=== PATIENT | female | born 1965 | race African-American/Black ===

== ENCOUNTER 2017-11-23 15:27 | Inpatient (IN) | payer MEDICARE, MEDICAID ==
[~2017-11-23] VITALS: Ht 144.8 cm; Wt 95.4 kg
[2017-11-23 15:57] LABS: AMPHETAMINE/METHAMPHETAMINE NEG (NEG); BARBITURATES NEG (NEG); BENZODIAZEPINES NEG (NEG); CANNABINOIDS NEG (NEG); COCAINE NEG (NEG); METHADONE NEG (NEG); OPIATES NEG (NEG); PHENCYCLIDINE NEG (NEG)
[2017-11-23 16:14] LABS: BASO % 1 % (0-3); EOS # 0.5 x10^3/uL (0.0-0.7); EOS % 9 % (0-3); HEMOGLOBIN 10.9 g/dL (12.0-15.5); LYMPH # 2.4 x10^3/uL (1.0-4.8); LYMPH % 43 % (24-48); MEAN CORPUSCULAR HEMOGLOBIN 27 pg (25-35); MEAN CORPUSCULAR HGB CONC 32 g/dL (31-37); MEAN CORPUSCULAR VOLUME 84 fL (79-100); MONO # 0.5 x10^3/uL (0.0-1.1); MONO % 9 % (0-9); NEUT # 2.2 x10^3uL (1.8-7.7); NEUT % 39 % (31-73); PLATELET COUNT 266 x10^3/uL (140-400); RED BLOOD COUNT 4.04 x10^6/uL (3.50-5.40); RED CELL DISTRIBUTION WIDTH 15.5 % (11.5-14.5); WHITE BLOOD COUNT 5.6 x10^3/uL (4.0-11.0)
[2017-11-23 16:15] LABS: BILIRUBIN,URINE NEG (NEG); CLARITY,URINE HAZY; COLOR,URINE YELLOW; GLUCOSE,URINE >=1000 mg/dL (NEG); NITRITE,URINE NEG (NEG); UROBILINOGEN,URINE 0.2 mg/dL (0.2 mg/dL)
[2017-11-23 16:16] LABS: BACTERIA,URINE FEW /HPF (0-FEW); HYALINE CASTS, URINE FEW /HPF; SQUAMOUS EPITHELIAL CELL,UR MOD /LPF
[2017-11-23 16:26] LABS: ALBUMIN 3.3 g/dL (3.4-5.0); ALBUMIN/GLOBULIN RATIO 0.9 (1.0-1.7); CALCIUM 9.5 mg/dL (8.5-10.1); CREATININE 1.8 mg/dL (0.6-1.0); MAGNESIUM 2.1 mg/dL (1.8-2.4); POTASSIUM 3.6 mmol/L (3.5-5.1); TOTAL BILIRUBIN 0.2 mg/dL (0.2-1.0); TOTAL PROTEIN 6.8 g/dL (6.4-8.2)
[2017-11-23 16:27] LABS: ACETAMIN < 2.0 mcg/mL (10-30); SALIC 1.6 mg/dL (2.8-20.0)
[2017-11-23] MEDS ORDERED: CIPROFLOXACIN 400MG PREMIX 200 ML IV ONE (16:30)
--- NOTE | 2017-11-23 16:52 | PHYS DOC ---
Past History Past Medical History: Diabetes, High Cholesterol, Other Past Surgical History: Other Additional Smoking Information: Pt states she never smoked. Alcohol Use: Occasionally Additional Alcohol Information: Pt states she drinks only occasionally but when she does she drinks "alot when I can get my hands on it." Drug Use: None Social History Narrative: Pt states she never used drugs Adult General Chief Complaint Chief Complaint: PSYCH EVALUATION HPI HPI Patient is a 52-year-old female who lives in assisted living facility who presents with suicidal ideation without plan. Patient's a diabetic with a history of suicidal ideation the past who presents with acute agitation this morning that was not consolable by staff. Patient admits she had her voice she was telling herself to kill herself because she just heart living. She lives of chronic hand and foot pain bilaterally secondary to diabetic neuropathy. She is also complaining of chronic abdominal distention which she is taking MiraLAX, Colace, magnesium, Gas-X to help her with her abdominal distention and constipation. She is frustrated this is not working. She denies any chest pain, denies hearing any auditory or visual hallucinations at this time. She denies any trauma to her head abdomen chest or back. Patient's pain is chronic. She admits that she's had UTI symptoms for last several days but don't seem to be taking attention to. She describes mild urgency and frequency denies any vaginal bleeding or discharge. At one point time she felt that she may been . 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 Patient will be admitted to the [facility] psych facility for continued evaluation Review of Systems Review of Systems Constitutional: Denies fever or chills [] Eyes: Denies change in visual acuity, redness, or eye pain [] HENT: Denies nasal congestion or sore throat [] Respiratory: Denies cough or shortness of breath [] Cardiovascular: No additional information not addressed in HPI [] GI: She does complain of suprapubic pain with urgency frequency and dysuria denies any nausea, vomiting, diarrhea she is"" chronically constipated : Positive for dysuria urgency or frequency negative for hematuria Musculoskeletal: Denies back pain positive for chronic hand and foot pain with an injury to her left heel. Integument: Denies rash or skin lesions [] Neurologic: Denies headache, focal weakness she does complain of peripheral paresthesias and a burning sensation in her hands and feet. Endocrine: Denies polyuria or polydipsia [] All other systems were reviewed and found to be within normal limits, except as documented in this note. Current Medications Current Medications Current Medications Medications (Trade) Dose Ordered Sig/Chinedu Start Time Stop Time Status Last Admin Dose Admin Ciprofloxacin (Cipro) 500 mg 1X ONCE 11/23/17 17:00 11/23/17 17:01 Ciprofloxacin Lactate 200 ml @ 200 mls/hr 1X ONCE 11/23/17 16:30 11/23/17 16:31 DC Allergies Allergies Allergies Coded Allergies Type Severity Reaction Last Updated Verified Penicillins Allergy Unknown 11/23/17 Yes latex Allergy Unknown 11/23/17 Yes potassium chloride Allergy Unknown 11/23/17 Yes Physical Exam Physical Exam Vital signs on the chart within normal limits no fevers, no hypoxia Constitutional: Well developed, well nourished, patient is obese but quite lucid she is aware where she is at and why she is here.[] HENT: Normocephalic, atraumatic, bilateral external ears normal, oropharynx dry mucous membranes, no oral exudates, nose normal. [] Eyes: PERRLA, EOMI, conjunctiva normal, no discharge. [] Neck: Normal range of motion, no tenderness, supple, no stridor. [] Cardiovascular:Heart rate regular rhythm, no murmur [] Lungs & Thorax: Bilateral breath sounds clear to auscultation [] Abdomen: Bowel sounds normal, soft, no tenderness, no masses, no pulsatile masses. She does have a protuberant abdomen with there is no focal [place] Kahn sign, Phan's or McBurney's point tenderness to palpation. Skin: Warm, dry, no erythema, no rash. She does have a small tear-like lesion on the backside of the left heel measuring 1 cm to 2 cm in length and width. It does not look a pressure sore[] Back: No tenderness, no CVA tenderness. [] Extremities: No tenderness, no cyanosis, no clubbing, ROM intact, no edema. [] Neurologic: Alert and oriented X 3, normal motor function, normal sensory function, no focal deficits noted patient can feel light touch and appropriate estate planning director of her distal cavities.. [] Psychologic: Patient is somewhat preoccupied with thoughts of suicide, she is not disoriented but she does become confused easily. Current Patient Data Vital Signs Vital Signs Date Time Temp Pulse Resp B/P (MAP) Pulse Ox O2 Delivery O2 Flow Rate FiO2 11/23/17 15:30 98.5 86 20 94 Room Air Lab Results Laboratory Tests Test 11/23/17 15:35 11/23/17 15:50 Urine Collection Type Unknown Urine Color Yellow Urine Clarity Hazy Urine pH 5.5 Urine Specific [place] 1.015 Urine Protein 100 mg/dl (NEG-TRACE) Urine Glucose (UA) >=1000 mg/dL (NEG) Urine Ketones (Stick) Neg mg/dL (NEG) Urine Blood Neg (NEG) Urine Nitrite Neg (NEG) Urine Bilirubin Neg (NEG) Urine Urobilinogen Dipstick 0.2 mg/dL (0.2 mg/dL) Urine Leukocyte Esterase Small (NEG) Urine RBC 1-2 /HPF (0-2) Urine WBC 11-20 /HPF (0-4) Urine Squamous Epithelial Cells Mod /LPF Urine Bacteria Few /HPF (0-FEW) Urine Hyaline Casts Few /HPF Urine Mucus Slight /LPF Urine Opiates Screen Neg (NEG) Urine Methadone Screen Neg (NEG) Urine Barbiturates Neg (NEG) Urine Phencyclidine Screen Neg (NEG) Urine Amphetamine/Methamphetamine Neg (NEG) Urine Benzodiazepines Screen Neg (NEG) Urine Cocaine Screen Neg (NEG) Urine Cannabinoids Screen Neg (NEG) Urine Ethyl Alcohol Neg (NEG) White Blood Count 5.6 x10^3/uL (4.0-11.0) Red Blood Count 4.04 x10^6/uL (3.50-5.40) Hemoglobin 10.9 g/dL (12.0-15.5) L Hematocrit 34.0 % (36.0-47.0) L Mean Corpuscular Volume 84 fL (79-100) Mean Corpuscular Hemoglobin 27 pg (25-35) Mean Corpuscular Hemoglobin Concent 32 g/dL (31-37) Red Cell Distribution Width 15.5 % (11.5-14.5) H Platelet Count 266 x10^3/uL (140-400) Neutrophils (%) (Auto) 39 % (31-73) Lymphocytes (%) (Auto) 43 % (24-48) Monocytes (%) (Auto) 9 % (0-9) Eosinophils (%) (Auto) 9 % (0-3) H Basophils (%) (Auto) 1 % (0-3) Neutrophils # (Auto) 2.2 x10^3uL (1.8-7.7) Lymphocytes # (Auto) 2.4 x10^3/uL (1.0-4.8) Monocytes # (Auto) 0.5 x10^3/uL (0.0-1.1) Eosinophils # (Auto) 0.5 x10^3/uL (0.0-0.7) Basophils # (Auto) 0.0 x10^3/uL (0.0-0.2) Sodium Level 144 mmol/L (136-145) Potassium Level 3.6 mmol/L (3.5-5.1) Chloride Level 105 mmol/L (98-107) Carbon Dioxide Level 30 mmol/L (21-32) Anion Gap 9 (6-14) Blood Urea Nitrogen 25 mg/dL (7-20) H Creatinine 1.8 mg/dL (0.6-1.0) H Estimated GFR (Cockcroft-Gault) 36.0 BUN/Creatinine Ratio 14 (6-20) Glucose Level 102 mg/dL (70-99) H Calcium Level 9.5 mg/dL (8.5-10.1) Magnesium Level 2.1 mg/dL (1.8-2.4) Total Bilirubin 0.2 mg/dL (0.2-1.0) Aspartate Amino Transferase (AST) 19 U/L (15-37) Alanine Aminotransferase (ALT) 25 U/L (14-59) Alkaline Phosphatase 206 U/L (46-116) H Total Protein 6.8 g/dL (6.4-8.2) Albumin 3.3 g/dL (3.4-5.0) L Albumin/Globulin Ratio 0.9 (1.0-1.7) L Salicylates Level 1.6 mg/dL (2.8-20.0) L Salicylate Last Dose Date Unknown Salicylate Last Dose Time Unknown Acetaminophen Level < 2.0 mcg/mL (10-30) L Acetaminophen Last Dose Date Unknown Acetaminophen Last Dose Time Unknown Ethyl Alcohol Level < 10 mg/dL (0-10) EKG EKG [] Radiology/Procedures Radiology/Procedures [] Course & Med Decision Making Course & Med Decision Making Laboratory Tests Test 11/23/17 15:35 11/23/17 15:50 Urine Collection Type Unknown Urine Color Yellow Urine Clarity Hazy Urine pH 5.5 Urine Specific [place] 1.015 Urine Protein 100 mg/dl (NEG-TRACE) Urine Glucose (UA) >=1000 mg/dL (NEG) Urine Ketones (Stick) Neg mg/dL (NEG) Urine Blood Neg (NEG) Urine Nitrite Neg (NEG) Urine Bilirubin Neg (NEG) Urine Urobilinogen Dipstick 0.2 mg/dL (0.2 mg/dL) Urine Leukocyte Esterase Small (NEG) Urine RBC 1-2 /HPF (0-2) Urine WBC 11-20 /HPF (0-4) Urine Squamous Epithelial Cells Mod /LPF Urine Bacteria Few /HPF (0-FEW) Urine Hyaline Casts Few /HPF Urine Mucus Slight /LPF Urine Opiates Screen Neg (NEG) Urine Methadone Screen Neg (NEG) Urine Barbiturates Neg (NEG) Urine Phencyclidine Screen Neg (NEG) Urine Amphetamine/Methamphetamine Neg (NEG) Urine Benzodiazepines Screen Neg (NEG) Urine Cocaine Screen Neg (NEG) Urine Cannabinoids Screen Neg (NEG) Urine Ethyl Alcohol Neg (NEG) White Blood Count 5.6 x10^3/uL (4.0-11.0) Red Blood Count 4.04 x10^6/uL (3.50-5.40) Hemoglobin 10.9 g/dL (12.0-15.5) L Hematocrit 34.0 % (36.0-47.0) L Mean Corpuscular Volume 84 fL (79-100) Mean Corpuscular Hemoglobin 27 pg (25-35) Mean Corpuscular Hemoglobin Concent 32 g/dL (31-37) Red Cell Distribution Width 15.5 % (11.5-14.5) H Platelet Count 266 x10^3/uL (140-400) Neutrophils (%) (Auto) 39 % (31-73) Lymphocytes (%) (Auto) 43 % (24-48) Monocytes (%) (Auto) 9 % (0-9) Eosinophils (%) (Auto) 9 % (0-3) H Basophils (%) (Auto) 1 % (0-3) Neutrophils # (Auto) 2.2 x10^3uL (1.8-7.7) Lymphocytes # (Auto) 2.4 x10^3/uL (1.0-4.8) Monocytes # (Auto) 0.5 x10^3/uL (0.0-1.1) Eosinophils # (Auto) 0.5 x10^3/uL (0.0-0.7) Basophils # (Auto) 0.0 x10^3/uL (0.0-0.2) Sodium Level 144 mmol/L (136-145) Potassium Level 3.6 mmol/L (3.5-5.1) Chloride Level 105 mmol/L (98-107) Carbon Dioxide Level 30 mmol/L (21-32) Anion Gap 9 (6-14) Blood Urea Nitrogen 25 mg/dL (7-20) H Creatinine 1.8 mg/dL (0.6-1.0) H Estimated GFR (Cockcroft-Gault) 36.0 BUN/Creatinine Ratio 14 (6-20) Glucose Level 102 mg/dL (70-99) H Calcium Level 9.5 mg/dL (8.5-10.1) Magnesium Level 2.1 mg/dL (1.8-2.4) Total Bilirubin 0.2 mg/dL (0.2-1.0) Aspartate Amino Transferase (AST) 19 U/L (15-37) Alanine Aminotransferase (ALT) 25 U/L (14-59) Alkaline Phosphatase 206 U/L (46-116) H Total Protein 6.8 g/dL (6.4-8.2) Albumin 3.3 g/dL (3.4-5.0) L Albumin/Globulin Ratio 0.9 (1.0-1.7) L Salicylates Level 1.6 mg/dL (2.8-20.0) L Salicylate Last Dose Date Unknown Salicylate Last Dose Time Unknown Acetaminophen Level < 2.0 mcg/mL (10-30) L Acetaminophen Last Dose Date Unknown Acetaminophen Last Dose Time Unknown Ethyl Alcohol Level < 10 mg/dL (0-10) Pertinent Labs and Imaging studies reviewed. (See chart for details) []Patient EKG read at 3:54 PM dosage heart rate of 73, MD interval of 156 which is normal, QRS 100 which is normal, QTC is 433 which is normal, patient is a normal sinus rhythm there is no Q-wave in the anterior leads specifically lead V1 and V2 but there is no ST segment or T-wave changes consistent with acute ischemia at this time. Patient's urinalysis has noted glucose in it with 11-20 white blood cells as well as bacteria and leuk esterase. Given her symptoms although there is epithelial cells noted as a possible contaminant patient will be treated empirically with ciprofloxacin to ensure that her altered mental status and confusion is not from this UTI. She'll be offered admission to the hospital for continued evaluation of her suicidal ideations in nature that her medications are stabilized as she may be discharged to an appropriate healthcare facility after being medically screened and cleared by psychiatry. "I have assessed this patient clinically and believe that their condition requires an admission to the hospital. After consulting the admitting physician about this case, they have asked that I admit this patient to their service as an inpatient based on the clinical presentation and my impression." She is oriented been admitted to psychiatry services [facility] psych Impression: Acute adjustment disorder, acute UTI, Dragon Disclaimer Dragon Disclaimer This electronic medical record was generated, in whole or in part, using a voice recognition dictation system. Departure Departure: Impression: Primary Impression: Acute adjustment disorder Additional Impressions: Peripheral neuropathy UTI (urinary tract infection) Skin tear Disposition: ADMITTED INPATIENT Admitting Physician: Other Condition: GUARDED Referrals: TIFFANIE WALLIS (PCP) Problem Qualifiers OSIEL HUNTER MD Nov 23, 2017 16:52
[2017-11-23] MEDS ORDERED: CIPROFLOXACIN HCL 500 MG TABLET PO ONE (17:00)
--- NOTE | 2017-11-23 17:02 | EKG ---
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
[2017-11-23] MEDS ORDERED: ACETAMINOPHEN 325 MG TABLET PO PRN (17:45)
[2017-11-23] MEDS ORDERED: METHYL SALICYLATE/MENTHOL TOPICAL OINTMENT 29GM TUBE. TP PRN (17:45)
[2017-11-23] MEDS ORDERED: MAG HYDROX/AL HYDROX/SIMETH 30 ML ORAL.SUSP PO PRN (17:45)
[2017-11-23 18:11] VITALS: BP 123/72
--- NOTE | 2017-11-23 21:12 | PDOC ---
Exam Note: Tay Note: Please also refer to the separate dictated note~for this date of service dictated separately.~Patient seen individually. Discussed the patient with Nursing staff reviewed the chart.~Reviewed interim history and current functioning. Reviewed vital signs,~Labs/ Radiology~and current medications noted below. Continue current treatment with the changes noted in the dictated addendum note Assessment: Vital Signs: Vital Signs Date Time Temp Pulse Resp B/P (MAP) Pulse Ox O2 Delivery O2 Flow Rate FiO2 11/23/17 18:11 96.4 83 18 123/72 (89) 97 11/23/17 16:50 Room Air Labs: Laboratory Tests Test 11/23/17 15:35 11/23/17 15:50 Urine Collection Type Unknown Urine Color Yellow Urine Clarity Hazy Urine pH 5.5 Urine Specific [place] 1.015 Urine Protein 100 mg/dl (NEG-TRACE) Urine Glucose (UA) >=1000 mg/dL (NEG) Urine Ketones (Stick) Neg mg/dL (NEG) Urine Blood Neg (NEG) Urine Nitrite Neg (NEG) Urine Bilirubin Neg (NEG) Urine Urobilinogen Dipstick 0.2 mg/dL (0.2 mg/dL) Urine Leukocyte Esterase Small (NEG) Urine RBC 1-2 /HPF (0-2) Urine WBC 11-20 /HPF (0-4) Urine Squamous Epithelial Cells Mod /LPF Urine Bacteria Few /HPF (0-FEW) Urine Hyaline Casts Few /HPF Urine Mucus Slight /LPF Urine Opiates Screen Neg (NEG) Urine Methadone Screen Neg (NEG) Urine Barbiturates Neg (NEG) Urine Phencyclidine Screen Neg (NEG) Urine Amphetamine/Methamphetamine Neg (NEG) Urine Benzodiazepines Screen Neg (NEG) Urine Cocaine Screen Neg (NEG) Urine Cannabinoids Screen Neg (NEG) Urine Ethyl Alcohol Neg (NEG) White Blood Count 5.6 x10^3/uL (4.0-11.0) Red Blood Count 4.04 x10^6/uL (3.50-5.40) Hemoglobin 10.9 g/dL (12.0-15.5) L Hematocrit 34.0 % (36.0-47.0) L Mean Corpuscular Volume 84 fL (79-100) Mean Corpuscular Hemoglobin 27 pg (25-35) Mean Corpuscular Hemoglobin Concent 32 g/dL (31-37) Red Cell Distribution Width 15.5 % (11.5-14.5) H Platelet Count 266 x10^3/uL (140-400) Neutrophils (%) (Auto) 39 % (31-73) Lymphocytes (%) (Auto) 43 % (24-48) Monocytes (%) (Auto) 9 % (0-9) Eosinophils (%) (Auto) 9 % (0-3) H Basophils (%) (Auto) 1 % (0-3) Neutrophils # (Auto) 2.2 x10^3uL (1.8-7.7) Lymphocytes # (Auto) 2.4 x10^3/uL (1.0-4.8) Monocytes # (Auto) 0.5 x10^3/uL (0.0-1.1) Eosinophils # (Auto) 0.5 x10^3/uL (0.0-0.7) Basophils # (Auto) 0.0 x10^3/uL (0.0-0.2) Sodium Level 144 mmol/L (136-145) Potassium Level 3.6 mmol/L (3.5-5.1) Chloride Level 105 mmol/L (98-107) Carbon Dioxide Level 30 mmol/L (21-32) Anion Gap 9 (6-14) Blood Urea Nitrogen 25 mg/dL (7-20) H Creatinine 1.8 mg/dL (0.6-1.0) H Estimated GFR (Cockcroft-Gault) 36.0 BUN/Creatinine Ratio 14 (6-20) Glucose Level 102 mg/dL (70-99) H Calcium Level 9.5 mg/dL (8.5-10.1) Magnesium Level 2.1 mg/dL (1.8-2.4) Total Bilirubin 0.2 mg/dL (0.2-1.0) Aspartate Amino Transferase (AST) 19 U/L (15-37) Alanine Aminotransferase (ALT) 25 U/L (14-59) Alkaline Phosphatase 206 U/L (46-116) H Total Protein 6.8 g/dL (6.4-8.2) Albumin 3.3 g/dL (3.4-5.0) L Albumin/Globulin Ratio 0.9 (1.0-1.7) L Salicylates Level 1.6 mg/dL (2.8-20.0) L Salicylate Last Dose Date Unknown Salicylate Last Dose Time Unknown Acetaminophen Level < 2.0 mcg/mL (10-30) L Acetaminophen Last Dose Date Unknown Acetaminophen Last Dose Time Unknown Ethyl Alcohol Level < 10 mg/dL (0-10) Current Medications: Meds: Current Medications Ciprofloxacin Lactate 200 ml @ 200 mls/hr 1X ONCE IV ; Start 11/23/17 at 16:30 ; Stop 11/23/17 at 16:31; Status DC Ciprofloxacin (Cipro) 500 mg 1X ONCE PO Last administered on 11/23/17at 16:45; Start 11/23/17 at 17:00; Stop 11/23/17 at 17:01; Status DC Acetaminophen (Tylenol) 650 mg PRN Q6HRS PRN PO PAIN / TEMP; Start 11/23/17 at 17:45 Multi-Ingredient Ointment (Analgesic [place]) 1 caridad PRN QID PRN TP MUSCLE PAIN; Start 11/23/17 at 17:45 Al Hydroxide/Mg Hydroxide (Mylanta Plus Xs) 15 ml PRN AFTMEALHC PRN PO DYSPEPSIA; Start 11/23/17 at 17:45 Magnesium Hydroxide (Milk Of Magnesia) 2,400 mg PRN QHS PRN PO CONSTIPATION; Start 11/23/17 at 17:45 I have reviewed the current psychotropics carefully including drug interactions. Risk benefit ratio favors no change other than as noted in my dictated progress note. Diagnosis: Problems: (1) Peripheral neuropathy (2) Skin tear (3) Acute adjustment disorder (4) Anxiety disorder (5) Bipolar affective, mixed, sev w/ psych (6) Schizoaffective disorder, chronic condition with acute exacerbation (7) Schizophrenia, disorganized, subchronic with acute exacerbation JASS HUNG MD Nov 23, 2017 21:12
[2017-11-23] MEDS ORDERED: ATOR10TA PO (22:04)
[2017-11-23] MEDS ORDERED: [UNRECOGNIZED DRUG - CODE] TP (22:04)
[2017-11-23] MEDS ORDERED: CLON0.1T PO (22:04)
[2017-11-23] MEDS ORDERED: ACET500T55 PO (22:04)
[2017-11-23] MEDS ORDERED: SIME125C65 PO (22:04)
[2017-11-23] MEDS ORDERED: HALO5VIA2 IM (22:04)
[2017-11-23] MEDS ORDERED: INSU100I17 SQ ×3 (22:04)
[2017-11-23] MEDS ORDERED: ASPI-612 PO (22:04)
[2017-11-23] MEDS ORDERED: TRAM50TA PO (22:04)
[2017-11-23] MEDS ORDERED: MAG355OR33 PO (22:04)
[2017-11-23] MEDS ORDERED: MULT-245 PO (22:04)
[2017-11-23] MEDS ORDERED: ARIP15TA36 PO (22:04)
[2017-11-23] MEDS ORDERED: FLUT9.9S NS (22:04)
[2017-11-23] MEDS ORDERED: AMLO10TA2 PO (22:04)
[2017-11-23] MEDS ORDERED: ERYT250T14 PO (22:04)
[2017-11-23] MEDS ORDERED: CLON0.5T3 PO (22:04)
[2017-11-23] MEDS ORDERED: INSU100I27 SQ ×2 (22:04)
[2017-11-23] MEDS ORDERED: MAGN2400 PO (22:04)
[2017-11-23] MEDS ORDERED: MAGN400T3 PO (22:04)
[2017-11-23] MEDS ORDERED: HALO10TA PO (22:04)
[2017-11-23] MEDS ORDERED: DOCU100C28 PO ×2 (22:04)
[2017-11-23] MEDS ORDERED: PIOG30TA41 PO (22:04)
[2017-11-23] MEDS ORDERED: FURO-68 PO (22:04)
[2017-11-23] MEDS ORDERED: LISI-334 PO (22:04)
[2017-11-23] MEDS ORDERED: GEMF600T3 PO (22:04)
[2017-11-23] MEDS ORDERED: SENN-87 PO (22:04)
[2017-11-23] MEDS ORDERED: CETI10TA16 PO (22:04)
[2017-11-23] MEDS ORDERED: POTA10TA10 PO (22:04)
[2017-11-23] MEDS ORDERED: GABA-586 PO (22:04)
[2017-11-23] MEDS ORDERED: FAMO-63 PO (22:04)
[2017-11-23] MEDS ORDERED: GLUC1VIA3 SQ (22:04)
[2017-11-23] MEDS ORDERED: PETROLAT WHT TP PRN (22:15)
[2017-11-23] MEDS ORDERED: GLY TP PRN (22:15)
[2017-11-23] MEDS ORDERED: MAG HYDROX PO PRN (22:15)
[2017-11-23] MEDS ORDERED: SIMETH PO PRN (22:15)
[2017-11-23] MEDS ORDERED: NON FORMULARY ITEM (Magnesium Hydroxide (Milk Of Magnesia) 2,400 MG) PO PRN (22:15)
[2017-11-23] MEDS ORDERED: AL HYDROX PO PRN (22:15)
[2017-11-23] MEDS ORDERED: DOCUSATE SODIUM 100 MG CAPSULE PO PRN (22:15)
[2017-11-23] MEDS ORDERED: HALOPERIDOL LACT 5 MG/ML VIAL. IM PRN (22:15)
[2017-11-23] MEDS ORDERED: GLUCAGON,HUMAN RECOMBINANT 1 MG KIT. SQ PRN (22:15)
[2017-11-23] MEDS ORDERED: WATER TP PRN (22:15)
[2017-11-23] MEDS ORDERED: DIMETH TP PRN (22:15)
[2017-11-23] MEDS: INSULIN GLARGINE 300 UNITS/3 ML INSULN.PEN. SQ SCH (23:13)
[2017-11-24] MEDS: ACETAMINOPHEN 500 MG TABLET PO PRN ×2 (00:38→11:38)
[2017-11-24] MEDS: traMADol 50 MG TABLET PO PRN (04:05)
[2017-11-24 07:12] VITALS: BP 125/75
[2017-11-24] MEDS: ASPIRIN ENTERIC COATED 81 MG TABLET.DR. PO SCH (08:50)
[2017-11-24] MEDS: clonazePAM 0.5 MG TABLET PO SCH ×2 (08:50→19:24)
[2017-11-24] MEDS: PIOGLITAZONE 15 MG TABLET. PO SCH (08:51)
[2017-11-24] MEDS: HALOPERIDOL 5 MG TABLET PO SCH ×2 (08:51→21:19)
[2017-11-24] MEDS: FUROSEMIDE 40 MG TABLET PO SCH (08:51)
[2017-11-24] MEDS: MULTIVITAMIN with MINERAL TABLET. PO SCH (08:51)
[2017-11-24] MEDS: amLODIPine BESYLATE 10 MG TABLET PO SCH (08:51)
[2017-11-24] MEDS: GABAPENTIN 300 MG CAPSULE. PO SCH ×2 (08:51→19:22)
[2017-11-24] MEDS: SENNOSIDES 8.6 MG TABLET PO SCH ×2 (08:52→19:22)
[2017-11-24] MEDS: POTASSIUM CHLORIDE 10 MEQ TABLET.ER. PO SCH (08:52)
[2017-11-24] MEDS: FAMOTIDINE 20 MG TABLET PO SCH ×2 (08:52→19:22)
[2017-11-24] MEDS: LISINOPRIL 20 MG TABLET PO SCH (08:52)
[2017-11-24] MEDS: CETIRIZINE HCL 10 MG TABLET PO SCH (08:52)
[2017-11-24] MEDS: SIMETHICONE 80 MG TAB.CHEW PO SCH ×3 (08:53→19:21)
[2017-11-24] MEDS: ERYTHROMYCIN BASE 250 MG TABLET PO SCH ×3 (08:54→16:50)
[2017-11-24] MEDS: FLUTICASONE 50MCG/NASAL SPRAY 16GM BOTTLE. NS PRN (08:54)
[2017-11-24] MEDS: ARIPiprazole 15 MG TABLET PO SCH ×2 (08:56→19:20)
[2017-11-24] MEDS: MAGNESIUM OXIDE 400 MG TABLET PO SCH (08:56)
[2017-11-24] MEDS: GEMFIBROZIL 600 MG TABLET. PO SCH ×2 (08:56→16:48)
[2017-11-24] MEDS: DOCUSATE SODIUM 100 MG CAPSULE PO SCH (08:56)
[2017-11-24] MEDS: INSULIN GLARGINE 300 UNITS/3 ML INSULN.PEN. SQ SCH ×2 (09:04→19:26)
[2017-11-24] MEDS: INSULIN LISPRO 300 UNITS/3 ML INSULN.PEN. SQ SCH ×3 (09:07→16:50)
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
[2017-11-24 13:55] LABS: THYROID STIM HORMONE (TSH) 1.74 uIU/mL (0.358-3.740)
[2017-11-24 15:46] VITALS: BP 123/66
--- NOTE | 2017-11-24 20:59 | PDOC ---
Exam Note: Tay Note: Please also refer to the separate dictated note~for this date of service dictated separately.~Patient seen individually. Discussed the patient with Nursing staff reviewed the chart.~Reviewed interim history and current functioning. Reviewed vital signs,~Labs/ Radiology~and current medications noted below. Continue current treatment with the changes noted in the dictated addendum note Assessment: Vital Signs: Vital Signs Date Time Temp Pulse Resp B/P (MAP) Pulse Ox O2 Delivery O2 Flow Rate FiO2 11/24/17 15:46 97.6 79 16 123/66 (85) 97 11/24/17 05:05 Room Air I&O Intake and Output 11/24/17 07:00 Intake Total 360 ml Balance 360 ml Intake Oral 360 ml # Voids 1 Labs: Laboratory Tests Test 11/23/17 22:41 11/24/17 09:02 11/24/17 11:24 11/24/17 16:22 Glucose (Fingerstick) 220 mg/dL (70-99) H 226 mg/dL (70-99) H 216 mg/dL (70-99) H 215 mg/dL (70-99) H Test 11/24/17 19:12 Glucose (Fingerstick) 262 mg/dL (70-99) H Current Medications: Meds: Current Medications Ciprofloxacin Lactate 200 ml @ 200 mls/hr 1X ONCE IV ; Start 11/23/17 at 16:30 ; Stop 11/23/17 at 16:31; Status DC Ciprofloxacin (Cipro) 500 mg 1X ONCE PO Last administered on 11/23/17at 16:45; Start 11/23/17 at 17:00; Stop 11/23/17 at 17:01; Status DC Acetaminophen (Tylenol) 650 mg PRN Q6HRS PRN PO PAIN / TEMP; Start 11/23/17 at 17:45; Status Cancel Multi-Ingredient Ointment (Analgesic [place]) 1 yong PRN QID PRN TP MUSCLE PAIN; Start 11/23/17 at 17:45 Al Hydroxide/Mg Hydroxide (Mylanta Plus Xs) 15 ml PRN AFTMEALHC PRN PO DYSPEPSIA; Start 11/23/17 at 17:45 Magnesium Hydroxide (Milk Of Magnesia) 2,400 mg PRN QHS PRN PO CONSTIPATION; Start 11/23/17 at 17:45 Aripiprazole (Abilify) 15 mg BID PO Last administered on 11/24/17 19:20; Start 11/24/17 at 09:00 Clonazepam (KlonoPIN) 0.5 mg BID PO Last administered on 11/24/17 19:24; Start 11/24/17 at 09:00 Haloperidol Lactate (Haldol) 5 mg PRN Q4HRS PRN IM AGITATION; Start 11/23/17 at 22:15 Haloperidol (Haldol) 20 mg BID PO Last administered on 11/24/17at 08:51; Start 11/24/17 at 09:00 Acetaminophen (Tylenol) 500 mg PRN Q6HRS PRN PO PAIN Last administered on at 11:38; Start 11/23/17 at 22:15 Amlodipine Besylate (Norvasc) 10 mg DAILY PO Last administered on 11/24/17 08: 51; Start 11/24/17 at 09:00 Aspirin (Aspirin Enteric Coated) 81 mg DAILY PO Last administered on 11/24/17at 08:50; Start 11/24/17 at 09:00 Cetirizine HCl (ZyrTEC) 10 mg DAILY PO Last administered on 11/24/17at 08:52; Start 11/24/17 at 09:00 Clonidine HCl (Catapres) 0.1 mg HS PO ; Start 11/24/17 at 21:00 Docusate Sodium (Colace) 100 mg DAILY PO Last administered on 11/24/17at 08:56; Start 11/24/17 at 09:00 Docusate Sodium (Colace) 100 mg PRN DAILY PRN PO CONSTIPATION; Start 11/23/17 at 22:15 Erythromycin (E-Mycin) 250 mg TIDPC PO Last administered on 11/24/17at 16:50; Start 11/24/17 at 08:30 Famotidine (Pepcid) 20 mg BID PO Last administered on 11/24/17at 19:22; Start at 09:00 Furosemide (Lasix) 40 mg DAILY PO Last administered on 11/24/17at 08:51; Start 11/24/17 at 09:00 Gabapentin (Neurontin) 300 mg BID PO Last administered on 11/24/17at 19:22; Start 11/24/17 at 09:00 Gemfibrozil (Lopid) 600 mg BIDWMEALS PO Last administered on 11/24/17at 16:48; Start 11/24/17 at 08:00 Glucagon (Glucagen Kit) 1 mg PRN 1X PRN SQ hypoglycemia; Start 11/23/17 at 22: 15 Insulin Human Lispro (HumaLOG) 4 units DAILYWBKFT SQ Last administered on at 09:07; Start 11/24/17 at 08:00 Insulin Human Lispro (HumaLOG) 8 units DAILYBFRLUN SQ Last administered on 11/24at 11:37; Start 11/24/17 at 11:30 Insulin Human Lispro (HumaLOG) 10 units DAILYBFRSUP SQ Last administered on at 16:50; Start 11/24/17 at 17:00 Insulin Glargine (Lantus) 16 units HS SQ Last administered on 11/24/17at 19:26; Start 11/23/17 at 23:00 Insulin Glargine (Lantus) 26 units DAILYWBKFT SQ Last administered on at 09:04; Start 11/24/17 at 08:00 Lisinopril (Prinivil) 20 mg DAILY PO Last administered on 11/24/17at 08:52; Start 11/24/17 at 09:00 Magnesium Oxide (Magnesium Oxide) 400 mg DAILY PO Last administered on at 08:56; Start 11/24/17 at 09:00 Sennosides (Senna) 8.6 mg BID PO Last administered on 11/24/17at 19:22; Start at 09:00 Tramadol HCl (Ultram) 50 mg PRN Q6HRS PRN PO PAIN Last administered on at 04:05; Start 11/23/17 at 22:15 Fluticasone Propionate (Flonase) 2 spray PRN DAILY PRN NS ALLERGIES Last administered on 11/24/17at 08:54; Start 11/24/17 at 09:00 Non-Formulary Medication (Gly/Dimeth/ Petrolat,Wht/ Water (Moisturizing Cream)) 1 yong PRN PRN TP skin protectant; Start 11/23/17 at 22:15; Status UNV Non-Formulary Medication (Mag Hydrox/Al Hydrox/Simeth (Mintox Suspension)) 15 ml PRN BID PRN PO gerd; Start 11/23/17 at 22:15; Status UNV Non-Formulary Medication (Magnesium Hydroxide (Milk Of Magnesia)) 2,400 mg PRN DAILY PRN PO CONSTIPATION; Start 11/23/17 at 22:15; Status UNV Multivitamins/ Calcium (Thera-M Plus) 1 tab DAILY PO Last administered on at 08:51; Start 11/24/17 at 09:00 Pioglitazone HCl (Actos) 30 mg DAILY PO Last administered on 11/24/17at 08:51; Start 11/24/17 at 09:00 Potassium Chloride (Klor-Con) 10 meq DAILY PO Last administered on 11/24/17at 08 :52; Start 11/24/17 at 09:00 Simethicone (Gas-X) 120 mg TID PO Last administered on 11/24/17at 19:21; Start 11/24/17 at 09:00 Divalproex Sodium (Depakote Er) 500 mg HS PO ; Start 11/24/17 at 21:00 Phenylephrine/ Shark Liver Oil (Preparation H) 1 supp PRN Q8HRS PRN SC RECTAL PAIN; Start 11/24/17 at 19:00 Active Scripts Active Reported Tramadol Hcl (Tramadol HCl) 50 Mg Tablet 50 Mg PO PRN Q6HRS PRN Multi Vitamin Daily (Multivitamin) 1 Each Tablet 1 Tab PO DAILY Simethicone 125 Mg Capsule 125 Mg PO TID Senna Lax (Sennosides) 8.6 Mg Tablet 8.6 Mg PO BID Potassium Chloride 10 Meq Tablet.er 10 Meq PO DAILY Actos (Pioglitazone Hcl) 30 Mg Tablet 30 Mg PO DAILY Pepcid (Famotidine) 20 Mg Tablet 20 Mg PO BID Novolog Flexpen (Insulin Aspart) 100 Unit/1 Ml Insuln.pen 8 Units SQ DAILYBFRLUN Novolog Flexpen (Insulin Aspart) 100 Unit/1 Ml Insuln.pen 4 Units SQ DAILYWBKFT Novolog Flexpen (Insulin Aspart) 100 Unit/1 Ml Insuln.pen 10 Unit SQ DAILYBFRSUP Moisturizing Cream (Gly/Dimeth/Petrolat,Wht/Water) 453 Gm Cream..g. 1 Yong TP PRN PRN Mintox Suspension (Mag Hydrox/Al Hydrox/Simeth) 355 Ml Oral.susp 15 Ml PO PRN BID PRN Milk Of Magnesia (Magnesium Hydroxide) 2,400 Mg/10 Ml Oral.susp 2,400 Mg PO PRN DAILY PRN Mapap (Acetaminophen) 500 Mg Tablet 500 Mg PO PRN Q6HRS PRN Magnesium Oxide 400 Mg Tablet 500 Mg PO DAILY Lisinopril 20 Mg Tablet 20 Mg PO DAILY Lipitor (Atorvastatin Calcium) 10 Mg Tablet 10 Mg PO QHS Levemir Flextouch (Insulin Detemir) 100 Unit/1 Ml Insuln.pen 26 Units SQ DAILYWBKFT Levemir Flextouch (Insulin Detemir) 100 Unit/1 Ml Insuln.pen 16 Units SQ HS Lasix (Furosemide) 40 Mg Tablet 40 Mg PO DAILY Haloperidol 10 Mg Tablet 20 Mg PO BID Haloperidol Lactate 5 Mg/1 Ml Vial 5 Mg IJ PRN Q4HRS PRN Glucagen (Glucagon,Human Recombinant) 1 Mg/1 Ml Vial 1 Mg IJ PRN PRN Gemfibrozil 600 Mg Tablet 600 Mg PO BID Gabapentin 300 Mg Capsule 300 Mg PO BID Flonase Allergy Relief (Fluticasone Propionate) 9.9 Ml [place] Lin.susp 2 Sprays NS PRN PRN Erythromycin (Erythromycin Base) 250 Mg Tablet 250 Mg PO TIDPC Docusate Sodium 100 Mg Capsule 100 Mg PO DAILY Docusate Sodium 100 Mg Capsule 100 Mg PO PRN DAILY PRN Clonidine Hcl 0.1 Mg Tablet 0.1 Mg PO HS Clonazepam 0.5 Mg Tablet 0.5 Mg PO BID Cetirizine Hcl 10 Mg Tablet 10 Mg PO DAILY Aspirin Ec (Aspirin) 81 Mg Tablet.dr 81 Mg PO DAILY Amlodipine Besylate 10 Mg Tablet 10 Mg PO DAILY Abilify (Aripiprazole) 15 Mg Tablet 15 Mg PO BID I have reviewed the current psychotropics carefully including drug interactions. Risk benefit ratio favors no change other than as noted in my dictated progress note. Diagnosis: Problems: (1) Skin tear (2) Acute adjustment disorder (3) Anxiety disorder (4) Bipolar affective, mixed, sev w/ psych (5) Schizoaffective disorder, chronic condition with acute exacerbation (6) Schizophrenia, disorganized, subchronic with acute exacerbation JASS HUNG MD Nov 24, 2017 20:59
[2017-11-24 21:08] LABS: T3 TOTAL 100 ng/dL (71-180); THYROXINE 6.6 ug/dL (4.5-12.0)
[2017-11-24] MEDS: DIVALPROEX ER 500 MG TAB.ER.24H PO SCH (21:19)
[2017-11-24] MEDS: cloNIDine HCL 0.1 MG TABLET PO SCH (21:20)
[2017-11-25] MEDS: FLUTICASONE 50MCG/NASAL SPRAY 16GM BOTTLE. NS PRN (00:29)
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
[2017-11-25 05:08] LABS: HEMOGLOBIN A1C 8.5 % (4.8-5.6)
[2017-11-25 06:18] VITALS: BP 110/68
[2017-11-25] MEDS: INSULIN GLARGINE 300 UNITS/3 ML INSULN.PEN. SQ SCH ×2 (08:10→19:45)
[2017-11-25] MEDS: INSULIN LISPRO 300 UNITS/3 ML INSULN.PEN. SQ SCH ×3 (08:10→16:51)
[2017-11-25] MEDS: ERYTHROMYCIN BASE 250 MG TABLET PO SCH ×3 (08:10→16:39)
[2017-11-25] MEDS: CETIRIZINE HCL 10 MG TABLET PO SCH (08:11)
[2017-11-25] MEDS: ASPIRIN ENTERIC COATED 81 MG TABLET.DR. PO SCH (08:11)
[2017-11-25] MEDS: SENNOSIDES 8.6 MG TABLET PO SCH ×2 (08:11→19:35)
[2017-11-25] MEDS: HALOPERIDOL 5 MG TABLET PO SCH ×2 (08:11→19:36)
[2017-11-25] MEDS: PIOGLITAZONE 15 MG TABLET. PO SCH (08:11)
[2017-11-25] MEDS: GEMFIBROZIL 600 MG TABLET. PO SCH ×2 (08:11→16:39)
[2017-11-25] MEDS: POTASSIUM CHLORIDE 10 MEQ TABLET.ER. PO SCH (08:11)
[2017-11-25] MEDS: amLODIPine BESYLATE 10 MG TABLET PO SCH (08:11)
[2017-11-25] MEDS: SIMETHICONE 80 MG TAB.CHEW PO SCH ×3 (08:11→19:34)
[2017-11-25] MEDS: ARIPiprazole 15 MG TABLET PO SCH ×2 (08:12→19:34)
[2017-11-25] MEDS: FAMOTIDINE 20 MG TABLET PO SCH ×2 (08:12→19:35)
[2017-11-25] MEDS: GABAPENTIN 300 MG CAPSULE. PO SCH ×2 (08:12→19:34)
[2017-11-25] MEDS: MAGNESIUM OXIDE 400 MG TABLET PO SCH (08:12)
[2017-11-25] MEDS: FUROSEMIDE 40 MG TABLET PO SCH (08:12)
[2017-11-25] MEDS: DOCUSATE SODIUM 100 MG CAPSULE PO SCH (08:12)
[2017-11-25] MEDS: LISINOPRIL 20 MG TABLET PO SCH (08:12)
[2017-11-25] MEDS: clonazePAM 0.5 MG TABLET PO SCH ×2 (08:14→19:43)
[2017-11-25] MEDS: MULTIVITAMIN with MINERAL TABLET. PO SCH (08:14)
[2017-11-25] MEDS: traMADol 50 MG TABLET PO PRN (11:09)
[2017-11-25 16:27] VITALS: BP 128/51
[2017-11-25] MEDS: DIVALPROEX ER 500 MG TAB.ER.24H PO SCH (19:35)
[2017-11-25] MEDS: cloNIDine HCL 0.1 MG TABLET PO SCH (19:35)
[2017-11-25] MEDS: LACTOBACILLUS RHAMNOSUS GG 1 CAPSULE. PO SCH (19:43)
--- NOTE | 2017-11-25 21:20 | PDOC ---
Exam Note: Tay Note: Please also refer to the separate dictated note~for this date of service dictated separately.~Patient seen individually. Discussed the patient with Nursing staff reviewed the chart.~Reviewed interim history and current functioning. Reviewed vital signs,~Labs/ Radiology~and current medications noted below. Continue current treatment with the changes noted in the dictated addendum note Assessment: Vital Signs: Vital Signs Date Time Temp Pulse Resp B/P (MAP) Pulse Ox O2 Delivery O2 Flow Rate FiO2 11/25/17 19:35 81 128/51 11/25/17 16:27 96.9 20 100 11/24/17 05:05 Room Air I&O Intake and Output 11/25/17 07:00 Intake Total 600 ml Balance 600 ml Intake Oral 600 ml # Bowel Movements 1 Labs: Laboratory Tests Test 11/25/17 07:14 11/25/17 11:25 11/25/17 16:31 11/25/17 19:08 Glucose (Fingerstick) 110 mg/dL (70-99) H 186 mg/dL (70-99) H 288 mg/dL (70-99) H 213 mg/dL (70-99) H Current Medications: Meds: Current Medications Ciprofloxacin Lactate 200 ml @ 200 mls/hr 1X ONCE IV ; Start 11/23/17 at 16:30 ; Stop 11/23/17 at 16:31; Status DC Ciprofloxacin (Cipro) 500 mg 1X ONCE PO Last administered on 11/23/17at 16:45; Start 11/23/17 at 17:00; Stop 11/23/17 at 17:01; Status DC Acetaminophen (Tylenol) 650 mg PRN Q6HRS PRN PO PAIN / TEMP; Start 11/23/17 at 17:45; Status Cancel Multi-Ingredient Ointment (Analgesic [place]) 1 yong PRN QID PRN TP MUSCLE PAIN; Start 11/23/17 at 17:45 Al Hydroxide/Mg Hydroxide (Mylanta Plus Xs) 15 ml PRN AFTMEALHC PRN PO DYSPEPSIA; Start 11/23/17 at 17:45 Magnesium Hydroxide (Milk Of Magnesia) 2,400 mg PRN QHS PRN PO CONSTIPATION; Start 11/23/17 at 17:45 Aripiprazole (Abilify) 15 mg BID PO Last administered on 11/25/17at 19:34; Start 11/24/17 at 09:00 Clonazepam (KlonoPIN) 0.5 mg BID PO Last administered on 11/25/17 19:43; Start 11/24/17 at 09:00 Haloperidol Lactate (Haldol) 5 mg PRN Q4HRS PRN IM AGITATION; Start 11/23/17 at 22:15 Haloperidol (Haldol) 20 mg BID PO Last administered on 11/25/17 19:36; Start 11/24/17 at 09:00 Acetaminophen (Tylenol) 500 mg PRN Q6HRS PRN PO PAIN Last administered on 11:38; Start 11/23/17 at 22:15 Amlodipine Besylate (Norvasc) 10 mg DAILY PO Last administered on 11/25/17 08: 11; Start 11/24/17 at 09:00 Aspirin (Aspirin Enteric Coated) 81 mg DAILY PO Last administered on 11/25/17 08:11; Start 11/24/17 at 09:00 Cetirizine HCl (ZyrTEC) 10 mg DAILY PO Last administered on 11/25/17 08:11; Start 11/24/17 at 09:00 Clonidine HCl (Catapres) 0.1 mg HS PO Last administered on 11/25/17 19:35; Start 11/24/17 at 21:00 Docusate Sodium (Colace) 100 mg DAILY PO Last administered on 11/25/17 08:12; Start 11/24/17 at 09:00 Docusate Sodium (Colace) 100 mg PRN DAILY PRN PO CONSTIPATION; Start 11/23/17 at 22:15 Erythromycin (E-Mycin) 250 mg TIDPC PO Last administered on 11/25/17 16:39; Start 11/24/17 at 08:30; Stop 11/25/17 at 18:49; Status DC Famotidine (Pepcid) 20 mg BID PO Last administered on 11/25/17 19:35; Start at 09:00 Furosemide (Lasix) 40 mg DAILY PO Last administered on 11/25/17 08:12; Start 11/24/17 at 09:00 Gabapentin (Neurontin) 300 mg BID PO Last administered on 11/25/17 19:34; Start 11/24/17 at 09:00 Gemfibrozil (Lopid) 600 mg BIDWMEALS PO Last administered on 11/25/17at 16:39; Start 11/24/17 at 08:00 Glucagon (Glucagen Kit) 1 mg PRN 1X PRN SQ hypoglycemia; Start 11/23/17 at 22: 15 Insulin Human Lispro (HumaLOG) 4 units DAILYWBKFT SQ Last administered on at 08:10; Start 11/24/17 at 08:00 Insulin Human Lispro (HumaLOG) 8 units DAILYBFRLUN SQ Last administered on 11/25at 12:00; Start 11/24/17 at 11:30 Insulin Human Lispro (HumaLOG) 10 units DAILYBFRSUP SQ Last administered on at 16:51; Start 11/24/17 at 17:00 Insulin Glargine (Lantus) 16 units HS SQ Last administered on 11/25/17at 19:45; Start 11/23/17 at 23:00 Insulin Glargine (Lantus) 26 units DAILYWBKFT SQ Last administered on at 08:10; Start 11/24/17 at 08:00 Lisinopril (Prinivil) 20 mg DAILY PO Last administered on 11/25/17 08:12; Start 11/24/17 at 09:00 Magnesium Oxide (Magnesium Oxide) 400 mg DAILY PO Last administered on at 08:12; Start 11/24/17 at 09:00 Sennosides (Senna) 8.6 mg BID PO Last administered on 11/25/17at 19:35; Start at 09:00 Tramadol HCl (Ultram) 50 mg PRN Q6HRS PRN PO PAIN Last administered on at 11:09; Start 11/23/17 at 22:15 Fluticasone Propionate (Flonase) 2 spray PRN DAILY PRN NS ALLERGIES Last administered on 11/25/17at 00:29; Start 11/24/17 at 09:00 Non-Formulary Medication (Gly/Dimeth/ Petrolat,Wht/ Water (Moisturizing Cream)) 1 yong PRN PRN TP skin protectant; Start 11/23/17 at 22:15; Status UNV Non-Formulary Medication (Mag Hydrox/Al Hydrox/Simeth (Mintox Suspension)) 15 ml PRN BID PRN PO gerd; Start 11/23/17 at 22:15; Status UNV Non-Formulary Medication (Magnesium Hydroxide (Milk Of Magnesia)) 2,400 mg PRN DAILY PRN PO CONSTIPATION; Start 11/23/17 at 22:15; Status UNV Multivitamins/ Calcium (Thera-M Plus) 1 tab DAILY PO Last administered on at 08:14; Start 11/24/17 at 09:00 Pioglitazone HCl (Actos) 30 mg DAILY PO Last administered on 11/25/17 08:11; Start 11/24/17 at 09:00 Potassium Chloride (Klor-Con) 10 meq DAILY PO Last administered on 11/25/17at 08 :11; Start 11/24/17 at 09:00 Simethicone (Gas-X) 120 mg TID PO Last administered on 11/25/17at 19:34; Start 11/24/17 at 09:00 Divalproex Sodium (Depakote Er) 500 mg HS PO Last administered on 11/25/17at 19: 35; Start 11/24/17 at 21:00 Phenylephrine/ Shark Liver Oil (Preparation H) 1 supp PRN Q8HRS PRN CA RECTAL PAIN; Start 11/24/17 at 19:00 Lactobacillus Rhamnosus (Culturelle) 1 cap BID PO Last administered on at 19:43; Start 11/25/17 at 21:00 Fluvoxamine Maleate (Luvox) 25 mg HS PO Last administered on 11/25/17at 19:43; Start 11/25/17 at 21:00 Olanzapine (ZyPREXA ZYDIS) 2.5 mg PRN Q2HR PRN PO PSYCHOSIS; Start 11/25/17 at 18:15 Cyanocobalamin (Vitamin B-12) 1,000 mcg QMONTH IM ; Start 11/26/17 at 09:00; Stop 11/26/17 at 09:00; Status DC Active Scripts Active Reported Tramadol Hcl (Tramadol HCl) 50 Mg Tablet 50 Mg PO PRN Q6HRS PRN Multi Vitamin Daily (Multivitamin) 1 Each Tablet 1 Tab PO DAILY Simethicone 125 Mg Capsule 125 Mg PO TID Senna Lax (Sennosides) 8.6 Mg Tablet 8.6 Mg PO BID Potassium Chloride 10 Meq Tablet.er 10 Meq PO DAILY Actos (Pioglitazone Hcl) 30 Mg Tablet 30 Mg PO DAILY Pepcid (Famotidine) 20 Mg Tablet 20 Mg PO BID Novolog Flexpen (Insulin Aspart) 100 Unit/1 Ml Insuln.pen 8 Units SQ DAILYBFRLUN Novolog Flexpen (Insulin Aspart) 100 Unit/1 Ml Insuln.pen 4 Units SQ DAILYWBKFT Novolog Flexpen (Insulin Aspart) 100 Unit/1 Ml Insuln.pen 10 Unit SQ DAILYBFRSUP Moisturizing Cream (Gly/Dimeth/Petrolat,Wht/Water) 453 Gm Cream..g. 1 Yong TP PRN PRN Mintox Suspension (Mag Hydrox/Al Hydrox/Simeth) 355 Ml Oral.susp 15 Ml PO PRN BID PRN Milk Of Magnesia (Magnesium Hydroxide) 2,400 Mg/10 Ml Oral.susp 2,400 Mg PO PRN DAILY PRN Mapap (Acetaminophen) 500 Mg Tablet 500 Mg PO PRN Q6HRS PRN Magnesium Oxide 400 Mg Tablet 500 Mg PO DAILY Lisinopril 20 Mg Tablet 20 Mg PO DAILY Lipitor (Atorvastatin Calcium) 10 Mg Tablet 10 Mg PO QHS Levemir Flextouch (Insulin Detemir) 100 Unit/1 Ml Insuln.pen 26 Units SQ DAILYWBKFT Levemir Flextouch (Insulin Detemir) 100 Unit/1 Ml Insuln.pen 16 Units SQ HS Lasix (Furosemide) 40 Mg Tablet 40 Mg PO DAILY Haloperidol 10 Mg Tablet 20 Mg PO BID Haloperidol Lactate 5 Mg/1 Ml Vial 5 Mg IJ PRN Q4HRS PRN Glucagen (Glucagon,Human Recombinant) 1 Mg/1 Ml Vial 1 Mg IJ PRN PRN Gemfibrozil 600 Mg Tablet 600 Mg PO BID Gabapentin 300 Mg Capsule 300 Mg PO BID Flonase Allergy Relief (Fluticasone Propionate) 9.9 Ml Gibbs.susp 2 Sprays NS PRN PRN Erythromycin (Erythromycin Base) 250 Mg Tablet 250 Mg PO TIDPC Docusate Sodium 100 Mg Capsule 100 Mg PO DAILY Docusate Sodium 100 Mg Capsule 100 Mg PO PRN DAILY PRN Clonidine Hcl 0.1 Mg Tablet 0.1 Mg PO HS Clonazepam 0.5 Mg Tablet 0.5 Mg PO BID Cetirizine Hcl 10 Mg Tablet 10 Mg PO DAILY Aspirin Ec (Aspirin) 81 Mg Tablet.dr 81 Mg PO DAILY Amlodipine Besylate 10 Mg Tablet 10 Mg PO DAILY Abilify (Aripiprazole) 15 Mg Tablet 15 Mg PO BID I have reviewed the current psychotropics carefully including drug interactions. Risk benefit ratio favors no change other than as noted in my dictated progress note. Diagnosis: Problems: (1) Acute adjustment disorder (2) Anxiety disorder (3) Bipolar affective, mixed, sev w/ psych (4) Schizoaffective disorder, chronic condition with acute exacerbation (5) Schizophrenia, disorganized, subchronic with acute exacerbation JASS HUNG MD Nov 25, 2017 21:20
[2017-11-26 05:28] VITALS: BP 117/73
[2017-11-26] MEDS: INSULIN LISPRO 300 UNITS/3 ML INSULN.PEN. SQ SCH ×3 (08:00→17:20)
[2017-11-26] MEDS ORDERED: CYANOCOBALAMIN (VITAMIN B-12) 1,000 MCG/ML VIAL IM SCH (09:00)
[2017-11-26] MEDS: PIOGLITAZONE 15 MG TABLET. PO SCH (09:26)
[2017-11-26] MEDS: FAMOTIDINE 20 MG TABLET PO SCH ×2 (09:26→19:33)
[2017-11-26] MEDS: GABAPENTIN 300 MG CAPSULE. PO SCH ×2 (09:27→19:33)
[2017-11-26] MEDS: MAGNESIUM OXIDE 400 MG TABLET PO SCH (09:27)
[2017-11-26] MEDS: amLODIPine BESYLATE 10 MG TABLET PO SCH (09:27)
[2017-11-26] MEDS: GEMFIBROZIL 600 MG TABLET. PO SCH ×2 (09:27→17:20)
[2017-11-26] MEDS: CETIRIZINE HCL 10 MG TABLET PO SCH (09:28)
[2017-11-26] MEDS: LISINOPRIL 20 MG TABLET PO SCH (09:28)
[2017-11-26] MEDS: FUROSEMIDE 40 MG TABLET PO SCH (09:28)
[2017-11-26] MEDS: HALOPERIDOL 5 MG TABLET PO SCH ×2 (09:28→19:35)
[2017-11-26] MEDS: ARIPiprazole 15 MG TABLET PO SCH ×2 (09:28→19:33)
[2017-11-26] MEDS: POTASSIUM CHLORIDE 10 MEQ TABLET.ER. PO SCH (09:28)
[2017-11-26] MEDS: MULTIVITAMIN with MINERAL TABLET. PO SCH (09:29)
[2017-11-26] MEDS: ASPIRIN ENTERIC COATED 81 MG TABLET.DR. PO SCH (09:29)
[2017-11-26] MEDS: SIMETHICONE 80 MG TAB.CHEW PO SCH ×3 (09:29→19:33)
[2017-11-26] MEDS: LACTOBACILLUS RHAMNOSUS GG 1 CAPSULE. PO SCH ×2 (09:29→19:35)
[2017-11-26] MEDS: SENNOSIDES 8.6 MG TABLET PO SCH ×2 (09:29→19:33)
[2017-11-26] MEDS: DOCUSATE SODIUM 100 MG CAPSULE PO SCH (09:30)
[2017-11-26] MEDS: INSULIN GLARGINE 300 UNITS/3 ML INSULN.PEN. SQ SCH ×2 (09:31→19:39)
[2017-11-26] MEDS: clonazePAM 0.5 MG TABLET PO SCH ×2 (09:33→19:37)
--- NOTE | 2017-11-26 10:23 | PN ---
DATE: 11/24/2017 PSYCHIATRIC PROGRESS NOTE This is a late entry 11/24/2017 covers elements not covered in my initial note of 11/24/2017. I met with the patient evening of 11/24/2017. SUBJECTIVE: The patient slept 8 hours previous evening, compliant with medications, oriented x 4. She remains quite manic, distractable, grandiose, psychotic. She is back and forth to the nursing station with constant requests and quite intrusive at times. She is compliant with medications. I met with her in her room. REVIEW OF SYSTEMS: No CV, , pulmonary, eye, ENT system symptoms on review. MENTAL STATUS EXAM: Reasonably oriented. Speech is coherent, little pressured at times. Abstraction fair, computation impaired, language function intact. Mood and affect remain somewhat labile. LABORATORY DATA: Reviewed. IMPRESSION: Schizoaffective disorder, bipolar type, mixed with psychotic features. PLAN: Start Depakote ER 500 mg p.o. at bedtime. Check CBC, CMP, valproic acid level in 3 days. Continue Abilify, Klonopin, Haldol at current dosage. Once Depakote is therapeutic, we will reduce the Haldol somewhat along with the Abilify and consider Clozaril as an option to minimize the usage of two antipsychotics. JASS HUNG MD DR: KATIANA/alicia JOB#: [id number] / [id number]
[2017-11-26 16:20] VITALS: BP 118/59
[2017-11-26] MEDS: DIVALPROEX ER 500 MG TAB.ER.24H PO SCH (19:33)
[2017-11-26] MEDS: cloNIDine HCL 0.1 MG TABLET PO SCH (19:34)
--- NOTE | 2017-11-26 21:05 | PDOC ---
Exam Note: Tay Note: Please also refer to the separate dictated note~for this date of service dictated separately.~Patient seen individually. Discussed the patient with Nursing staff reviewed the chart.~Reviewed interim history and current functioning. Reviewed vital signs,~Labs/ Radiology~and current medications noted below. Continue current treatment with the changes noted in the dictated addendum note Assessment: Vital Signs: Vital Signs Date Time Temp Pulse Resp B/P (MAP) Pulse Ox O2 Delivery O2 Flow Rate FiO2 11/26/17 19:34 78 118/59 11/26/17 16:20 97.8 13 98 Room Air I&O Intake and Output 11/26/17 07:00 Intake Total 1200 ml Balance 1200 ml Intake Oral 1200 ml # Bowel Movements 1 Labs: Laboratory Tests Test 11/26/17 07:15 11/26/17 11:35 11/26/17 16:45 11/26/17 19:15 Glucose (Fingerstick) 100 mg/dL (70-99) H 233 mg/dL (70-99) H 179 mg/dL (70-99) H 228 mg/dL (70-99) H Current Medications: Meds: Current Medications Ciprofloxacin Lactate 200 ml @ 200 mls/hr 1X ONCE IV ; Start 11/23/17 at 16:30 ; Stop 11/23/17 at 16:31; Status DC Ciprofloxacin (Cipro) 500 mg 1X ONCE PO Last administered on 11/23/17at 16:45; Start 11/23/17 at 17:00; Stop 11/23/17 at 17:01; Status DC Acetaminophen (Tylenol) 650 mg PRN Q6HRS PRN PO PAIN / TEMP; Start 11/23/17 at 17:45; Status Cancel Multi-Ingredient Ointment (Analgesic [place]) 1 yong PRN QID PRN TP MUSCLE PAIN; Start 11/23/17 at 17:45 Al Hydroxide/Mg Hydroxide (Mylanta Plus Xs) 15 ml PRN AFTMEALHC PRN PO DYSPEPSIA; Start 11/23/17 at 17:45 Magnesium Hydroxide (Milk Of Magnesia) 2,400 mg PRN QHS PRN PO CONSTIPATION; Start 11/23/17 at 17:45 Aripiprazole (Abilify) 15 mg BID PO Last administered on 11/26/17at 19:33; Start 11/24/17 at 09:00 Clonazepam (KlonoPIN) 0.5 mg BID PO Last administered on 11/26/17 19:37; Start 11/24/17 at 09:00 Haloperidol Lactate (Haldol) 5 mg PRN Q4HRS PRN IM AGITATION; Start 11/23/17 at 22:15 Haloperidol (Haldol) 20 mg BID PO Last administered on 11/26/17 19:35; Start 11/24/17 at 09:00 Acetaminophen (Tylenol) 500 mg PRN Q6HRS PRN PO PAIN Last administered on 11:38; Start 11/23/17 at 22:15 Amlodipine Besylate (Norvasc) 10 mg DAILY PO Last administered on 11/26/17 09: 27; Start 11/24/17 at 09:00 Aspirin (Aspirin Enteric Coated) 81 mg DAILY PO Last administered on 11/26/17 09:29; Start 11/24/17 at 09:00 Cetirizine HCl (ZyrTEC) 10 mg DAILY PO Last administered on 11/26/17 09:28; Start 11/24/17 at 09:00 Clonidine HCl (Catapres) 0.1 mg HS PO Last administered on 11/26/17 19:34; Start 11/24/17 at 21:00 Docusate Sodium (Colace) 100 mg DAILY PO Last administered on 11/26/17 09:30; Start 11/24/17 at 09:00 Docusate Sodium (Colace) 100 mg PRN DAILY PRN PO CONSTIPATION; Start 11/23/17 at 22:15 Erythromycin (E-Mycin) 250 mg TIDPC PO Last administered on 11/25/17 16:39; Start 11/24/17 at 08:30; Stop 11/25/17 at 18:49; Status DC Famotidine (Pepcid) 20 mg BID PO Last administered on 11/26/17 19:33; Start at 09:00 Furosemide (Lasix) 40 mg DAILY PO Last administered on 11/26/17 09:28; Start 11/24/17 at 09:00 Gabapentin (Neurontin) 300 mg BID PO Last administered on 11/26/17 19:33; Start 11/24/17 at 09:00 Gemfibrozil (Lopid) 600 mg BIDWMEALS PO Last administered on 11/26/17at 17:20; Start 11/24/17 at 08:00 Glucagon (Glucagen Kit) 1 mg PRN 1X PRN SQ hypoglycemia; Start 11/23/17 at 22: 15 Insulin Human Lispro (HumaLOG) 4 units DAILYWBKFT SQ Last administered on at 08:10; Start 11/24/17 at 08:00 Insulin Human Lispro (HumaLOG) 8 units DAILYBFRLUN SQ Last administered on 11/26at 12:28; Start 11/24/17 at 11:30 Insulin Human Lispro (HumaLOG) 10 units DAILYBFRSUP SQ Last administered on at 17:20; Start 11/24/17 at 17:00 Insulin Glargine (Lantus) 16 units HS SQ Last administered on 11/26/17at 19:39; Start 11/23/17 at 23:00 Insulin Glargine (Lantus) 26 units DAILYWBKFT SQ Last administered on at 09:31; Start 11/24/17 at 08:00 Lisinopril (Prinivil) 20 mg DAILY PO Last administered on 11/26/17at 09:28; Start 11/24/17 at 09:00 Magnesium Oxide (Magnesium Oxide) 400 mg DAILY PO Last administered on at 09:27; Start 11/24/17 at 09:00 Sennosides (Senna) 8.6 mg BID PO Last administered on 11/26/17at 19:33; Start at 09:00 Tramadol HCl (Ultram) 50 mg PRN Q6HRS PRN PO PAIN Last administered on at 11:09; Start 11/23/17 at 22:15 Fluticasone Propionate (Flonase) 2 spray PRN DAILY PRN NS ALLERGIES Last administered on 11/25/17at 00:29; Start 11/24/17 at 09:00 Non-Formulary Medication (Gly/Dimeth/ Petrolat,Wht/ Water (Moisturizing Cream)) 1 yong PRN PRN TP skin protectant; Start 11/23/17 at 22:15; Status UNV Non-Formulary Medication (Mag Hydrox/Al Hydrox/Simeth (Mintox Suspension)) 15 ml PRN BID PRN PO gerd; Start 11/23/17 at 22:15; Status UNV Non-Formulary Medication (Magnesium Hydroxide (Milk Of Magnesia)) 2,400 mg PRN DAILY PRN PO CONSTIPATION; Start 11/23/17 at 22:15; Status UNV Multivitamins/ Calcium (Thera-M Plus) 1 tab DAILY PO Last administered on 09:29; Start 11/24/17 at 09:00 Pioglitazone HCl (Actos) 30 mg DAILY PO Last administered on 11/26/17 09:26; Start 11/24/17 at 09:00 Potassium Chloride (Klor-Con) 10 meq DAILY PO Last administered on 11/26/17 09 :28; Start 11/24/17 at 09:00 Simethicone (Gas-X) 120 mg TID PO Last administered on 11/26/17 19:33; Start 11/24/17 at 09:00 Divalproex Sodium (Depakote Er) 500 mg HS PO Last administered on 11/26/17 19: 33; Start 11/24/17 at 21:00 Phenylephrine/ Shark Liver Oil (Preparation H) 1 supp PRN Q8HRS PRN [place] RECTAL PAIN; Start 11/24/17 at 19:00 Lactobacillus Rhamnosus (Culturelle) 1 cap BID PO Last administered on 19:35; Start 11/25/17 at 21:00 Fluvoxamine Maleate (Luvox) 25 mg HS PO Last administered on 11/26/17at 19:36; Start 11/25/17 at 21:00 Olanzapine (ZyPREXA ZYDIS) 2.5 mg PRN Q2HR PRN PO PSYCHOSIS; Start 11/25/17 at 18:15 Cyanocobalamin (Vitamin B-12) 1,000 mcg QMONTH IM ; Start 11/26/17 at 09:00; Stop 11/26/17 at 09:00; Status DC Active Scripts Active Reported Tramadol Hcl (Tramadol HCl) 50 Mg Tablet 50 Mg PO PRN Q6HRS PRN Multi Vitamin Daily (Multivitamin) 1 Each Tablet 1 Tab PO DAILY Simethicone 125 Mg Capsule 125 Mg PO TID Senna Lax (Sennosides) 8.6 Mg Tablet 8.6 Mg PO BID Potassium Chloride 10 Meq Tablet.er 10 Meq PO DAILY Actos (Pioglitazone Hcl) 30 Mg Tablet 30 Mg PO DAILY Pepcid (Famotidine) 20 Mg Tablet 20 Mg PO BID Novolog Flexpen (Insulin Aspart) 100 Unit/1 Ml Insuln.pen 8 Units SQ DAILYBFRLUN Novolog Flexpen (Insulin Aspart) 100 Unit/1 Ml Insuln.pen 4 Units SQ DAILYWBKFT Novolog Flexpen (Insulin Aspart) 100 Unit/1 Ml Insuln.pen 10 Unit SQ DAILYBFRSUP Moisturizing Cream (Gly/Dimeth/Petrolat,Wht/Water) 453 Gm Cream..g. 1 Yong TP PRN PRN Mintox Suspension (Mag Hydrox/Al Hydrox/Simeth) 355 Ml Oral.susp 15 Ml PO PRN BID PRN Milk Of Magnesia (Magnesium Hydroxide) 2,400 Mg/10 Ml Oral.susp 2,400 Mg PO PRN DAILY PRN Mapap (Acetaminophen) 500 Mg Tablet 500 Mg PO PRN Q6HRS PRN Magnesium Oxide 400 Mg Tablet 500 Mg PO DAILY Lisinopril 20 Mg Tablet 20 Mg PO DAILY Lipitor (Atorvastatin Calcium) 10 Mg Tablet 10 Mg PO QHS Levemir Flextouch (Insulin Detemir) 100 Unit/1 Ml Insuln.pen 26 Units SQ DAILYWBKFT Levemir Flextouch (Insulin Detemir) 100 Unit/1 Ml Insuln.pen 16 Units SQ HS Lasix (Furosemide) 40 Mg Tablet 40 Mg PO DAILY Haloperidol 10 Mg Tablet 20 Mg PO BID Haloperidol Lactate 5 Mg/1 Ml Vial 5 Mg IJ PRN Q4HRS PRN Glucagen (Glucagon,Human Recombinant) 1 Mg/1 Ml Vial 1 Mg IJ PRN PRN Gemfibrozil 600 Mg Tablet 600 Mg PO BID Gabapentin 300 Mg Capsule 300 Mg PO BID Flonase Allergy Relief (Fluticasone Propionate) 9.9 Ml [place].susp 2 Sprays NS PRN PRN Erythromycin (Erythromycin Base) 250 Mg Tablet 250 Mg PO TIDPC Docusate Sodium 100 Mg Capsule 100 Mg PO DAILY Docusate Sodium 100 Mg Capsule 100 Mg PO PRN DAILY PRN Clonidine Hcl 0.1 Mg Tablet 0.1 Mg PO HS Clonazepam 0.5 Mg Tablet 0.5 Mg PO BID Cetirizine Hcl 10 Mg Tablet 10 Mg PO DAILY Aspirin Ec (Aspirin) 81 Mg Tablet. 81 Mg PO DAILY Amlodipine Besylate 10 Mg Tablet 10 Mg PO DAILY Abilify (Aripiprazole) 15 Mg Tablet 15 Mg PO BID I have reviewed the current psychotropics carefully including drug interactions. Risk benefit ratio favors no change other than as noted in my dictated progress note. Diagnosis: Problems: (1) Skin tear (2) Acute adjustment disorder (3) Anxiety disorder (4) Bipolar affective, mixed, sev w/ psych (5) Schizoaffective disorder, chronic condition with acute exacerbation (6) Schizophrenia, disorganized, subchronic with acute exacerbation JASS HUNG MD Nov 26, 2017 21:05
[2017-11-26] MEDS: traMADol 50 MG TABLET PO PRN (23:34)
[2017-11-27 05:59] VITALS: BP 162/67
[2017-11-27] MEDS: INSULIN LISPRO 300 UNITS/3 ML INSULN.PEN. SQ SCH ×3 (08:00→17:27)
[2017-11-27] MEDS: GABAPENTIN 300 MG CAPSULE. PO SCH ×2 (08:55→20:41)
[2017-11-27] MEDS: amLODIPine BESYLATE 10 MG TABLET PO SCH (08:56)
[2017-11-27] MEDS: MAGNESIUM OXIDE 400 MG TABLET PO SCH (08:56)
[2017-11-27] MEDS: FUROSEMIDE 40 MG TABLET PO SCH (08:56)
[2017-11-27] MEDS: CETIRIZINE HCL 10 MG TABLET PO SCH (08:56)
[2017-11-27] MEDS: HALOPERIDOL 5 MG TABLET PO SCH ×2 (08:57→20:41)
[2017-11-27] MEDS: ARIPiprazole 15 MG TABLET PO SCH ×2 (08:57→20:39)
[2017-11-27] MEDS: ASPIRIN ENTERIC COATED 81 MG TABLET.DR. PO SCH (08:57)
[2017-11-27] MEDS: POTASSIUM CHLORIDE 10 MEQ TABLET.ER. PO SCH (08:57)
[2017-11-27] MEDS: clonazePAM 0.5 MG TABLET PO SCH ×2 (08:57→20:44)
[2017-11-27] MEDS: MULTIVITAMIN with MINERAL TABLET. PO SCH (08:57)
[2017-11-27] MEDS: SIMETHICONE 80 MG TAB.CHEW PO SCH ×3 (08:57→20:41)
[2017-11-27] MEDS: LISINOPRIL 20 MG TABLET PO SCH (08:58)
[2017-11-27] MEDS: DOCUSATE SODIUM 100 MG CAPSULE PO SCH (08:58)
[2017-11-27] MEDS: FAMOTIDINE 20 MG TABLET PO SCH ×2 (08:58→20:41)
[2017-11-27] MEDS: LACTOBACILLUS RHAMNOSUS GG 1 CAPSULE. PO SCH ×2 (08:58→20:40)
[2017-11-27] MEDS: SENNOSIDES 8.6 MG TABLET PO SCH ×2 (08:58→20:41)
[2017-11-27] MEDS: GEMFIBROZIL 600 MG TABLET. PO SCH ×2 (08:58→17:28)
[2017-11-27] MEDS: PIOGLITAZONE 15 MG TABLET. PO SCH (09:02)
[2017-11-27] MEDS: INSULIN GLARGINE 300 UNITS/3 ML INSULN.PEN. SQ SCH ×2 (09:07→20:45)
[2017-11-27 09:27] LABS: BASO % 1 % (0-3); EOS # 0.5 x10^3/uL (0.0-0.7); EOS % 12 % (0-3); HEMATOCRIT 35.4 % (36.0-47.0); HEMOGLOBIN 11.3 g/dL (12.0-15.5); LYMPH # 2.1 x10^3/uL (1.0-4.8); LYMPH % 48 % (24-48); MEAN CORPUSCULAR HEMOGLOBIN 27 pg (25-35); MEAN CORPUSCULAR HGB CONC 32 g/dL (31-37); MEAN CORPUSCULAR VOLUME 85 fL (79-100); MONO # 0.3 x10^3/uL (0.0-1.1); MONO % 8 % (0-9); NEUT # 1.5 x10^3uL (1.8-7.7); NEUT % 33 % (31-73); PLATELET COUNT 263 x10^3/uL (140-400); RED BLOOD COUNT 4.18 x10^6/uL (3.50-5.40); RED CELL DISTRIBUTION WIDTH 15.6 % (11.5-14.5); WHITE BLOOD COUNT 4.5 x10^3/uL (4.0-11.0)
[2017-11-27 09:42] LABS: ALBUMIN 3.2 g/dL (3.4-5.0); ALBUMIN/GLOBULIN RATIO 0.8 (1.0-1.7); ALK PHOS 171 U/L (46-116); ALT (SGPT) 24 U/L (14-59); ANION GAP 5 (6-14); AST (SGOT) 17 U/L (15-37); BLOOD UREA NITROGEN 28 mg/dL (7-20); BUN/CREATININE RATIO 16 (6-20); CALCIUM 9.4 mg/dL (8.5-10.1); CARBON DIOXIDE 35 mmol/L (21-32); CHLORIDE 103 mmol/L (98-107); CREATININE 1.8 mg/dL (0.6-1.0); GLUCOSE 183 mg/dL (70-99); POTASSIUM 4.3 mmol/L (3.5-5.1); SODIUM 143 mmol/L (136-145); TOTAL BILIRUBIN 0.2 mg/dL (0.2-1.0); TOTAL PROTEIN 7.1 g/dL (6.4-8.2)
[2017-11-27 09:43] LABS: VAL ACID 22 mcg/mL (50-100)
[2017-11-27 16:18] VITALS: BP 133/56
--- NOTE | 2017-11-27 17:44 | RAD ---
CT ABD PEL W/ORAL CONTRST ONLY Indication: Abdominal pain, distention Technique: CT imaging was performed of the abdomen and pelvis after administration of oral contrast only, no intravenous contrast given, multiplanar reconstruction images submitted. One or more of the following individualized dose reduction techniques were utilized for this examination: 1. Automated exposure control 2. Adjustment of the mA and/or kV according to patient size 3. Use of iterative reconstruction technique. Contrast: None Comparison: None Findings: Heart is probably enlarged. Accurate evaluation of abdominal visceral organs is limited without intravenous contrast, no obvious focal abnormality of the liver, spleen, pancreas. Gallbladder is present without obvious intraluminal abnormality by CT, small in size. There is no hydronephrosis, somewhat lobulated contour of both kidneys. There is no renal calculus. It should be noted the entirety of the anterior abdominal wall greater on the left and bowel is not included on this exam. Urinary bladder is somewhat distended. There are phleboliths in the bilateral pelvis. Bowel is not significantly dilated. There is retained stool in segments of the colon. Normal appendix is visualized. There is multilevel lumbar facet degenerative change. There is no adrenal nodularity. IMPRESSION: 1. There is retained stool in segments of colon. Normal appendix is visualized. It should be noted the entirety of the anterior abdominal wall and bowel are not fully included on this exam. 2. Urinary bladder is somewhat distended. Electronically signed by: Arpit Moore MD (11/27/2017 5:41 PM) [id number]
--- NOTE | 2017-11-27 20:01 | PN ---
DATE: 11/25/2017 PSYCHIATRIC PROGRESS NOTE This is a late entry 11/25/2016, covers elements not covered in my initial note 11/15/2017. SUBJECTIVE: I met with the patient evening of 11/25/2017. The patient slept 5 hours previous evening. Previous night at 3 a.m. she woke up, was hallucinating, felt there was a snake in her room. Nursing staff reassured her. We will ask for past psychiatric records from [facility]. She was there in 07/2017. She is obsessed about her window, anxious, psychotic. I met with her in her room. REVIEW OF SYSTEMS: No CV, , pulmonary, eye, ENT system symptoms on review. MENTAL STATUS EXAM: Oriented to herself and situation. Speech coherent, abstraction fair, computation impaired, language function intact. Attention span short. She remains quite psychotic, obsessive. LABORATORY DATA: Reviewed. IMPRESSION: Schizophrenia, chronic, paranoid with acute exacerbation versus schizoaffective disorder, bipolar type, mixed with psychotic features. Rest unchanged. PLAN: Start Luvox 25 mg at bedtime for her marked obsessive and anxiety symptoms. Start Zyprexa p.r.n. Adjust Depakote ER 500 mg p.o. at bedtime. Follow labs level, adjust to reach therapeutic level. Continue Haldol and Abilify unchanged together with Klonopin for now, but I would like to reduce the Haldol gradually. JASS HUNG MD DR: KATIANA/alicia JOB#: [id number] / [id number]
[2017-11-27] MEDS: cloNIDine HCL 0.1 MG TABLET PO SCH (20:40)
[2017-11-27] MEDS: DIVALPROEX ER 500 MG TAB.ER.24H PO SCH (20:44)
[2017-11-27] MEDS: MAGNESIUM HYDROXIDE 2,400 MG/30 ML ORAL.SUSP. PO PRN (20:49)
--- NOTE | 2017-11-27 20:56 | PDOC ---
Exam Note: Tay Note: Please also refer to the separate dictated note~for this date of service dictated separately.~Patient seen individually. Discussed the patient with Nursing staff reviewed the chart.~Reviewed interim history and current functioning. Reviewed vital signs,~Labs/ Radiology~and current medications noted below. Continue current treatment with the changes noted in the dictated addendum note Assessment: Vital Signs: Vital Signs Date Time Temp Pulse Resp B/P (MAP) Pulse Ox O2 Delivery O2 Flow Rate FiO2 11/27/17 20:40 68 133/56 11/27/17 16:18 97.1 16 96 11/26/17 23:34 Room Air I&O Intake and Output 11/27/17 07:00 Intake Total 1200 ml Balance 1200 ml Intake Oral 1200 ml Labs: Laboratory Tests Test 11/27/17 07:22 11/27/17 09:09 11/27/17 11:44 11/27/17 16:10 Glucose (Fingerstick) 73 mg/dL (70-99) 135 mg/dL (70-99) H 189 mg/dL (70-99) H White Blood Count 4.5 x10^3/uL (4.0-11.0) Red Blood Count 4.18 x10^6/uL (3.50-5.40) Hemoglobin 11.3 g/dL (12.0-15.5) L Hematocrit 35.4 % (36.0-47.0) L Mean Corpuscular Volume 85 fL (79-100) Mean Corpuscular Hemoglobin 27 pg (25-35) Mean Corpuscular Hemoglobin Concent 32 g/dL (31-37) Red Cell Distribution Width 15.6 % (11.5-14.5) H Platelet Count 263 x10^3/uL (140-400) Neutrophils (%) (Auto) 33 % (31-73) Lymphocytes (%) (Auto) 48 % (24-48) Monocytes (%) (Auto) 8 % (0-9) Eosinophils (%) (Auto) 12 % (0-3) H Basophils (%) (Auto) 1 % (0-3) Neutrophils # (Auto) 1.5 x10^3uL (1.8-7.7) L Lymphocytes # (Auto) 2.1 x10^3/uL (1.0-4.8) Monocytes # (Auto) 0.3 x10^3/uL (0.0-1.1) Eosinophils # (Auto) 0.5 x10^3/uL (0.0-0.7) Basophils # (Auto) 0.0 x10^3/uL (0.0-0.2) Sodium Level 143 mmol/L (136-145) Potassium Level 4.3 mmol/L (3.5-5.1) Chloride Level 103 mmol/L (98-107) Carbon Dioxide Level 35 mmol/L (21-32) H Anion Gap 5 (6-14) L Blood Urea Nitrogen 28 mg/dL (7-20) H Creatinine 1.8 mg/dL (0.6-1.0) H Estimated GFR (Cockcroft-Gault) 36.0 BUN/Creatinine Ratio 16 (6-20) Glucose Level 183 mg/dL (70-99) H Calcium Level 9.4 mg/dL (8.5-10.1) Magnesium Level 2.0 mg/dL (1.8-2.4) Total Bilirubin 0.2 mg/dL (0.2-1.0) Aspartate Amino Transferase (AST) 17 U/L (15-37) Alanine Aminotransferase (ALT) 24 U/L (14-59) Alkaline Phosphatase 171 U/L (46-116) H Total Protein 7.1 g/dL (6.4-8.2) Albumin 3.2 g/dL (3.4-5.0) L Albumin/Globulin Ratio 0.8 (1.0-1.7) L Valproic Acid Level 22 mcg/mL (50-100) L Valproic Acid Last Dose Date 11/26/2017 Valproic Acid Last Dose Time 2100 Test 11/27/17 19:22 Glucose (Fingerstick) 125 mg/dL (70-99) H Current Medications: Meds: Current Medications Ciprofloxacin Lactate 200 ml @ 200 mls/hr 1X ONCE IV ; Start 11/23/17 at 16:30 ; Stop 11/23/17 at 16:31; Status DC Ciprofloxacin (Cipro) 500 mg 1X ONCE PO Last administered on 11/23/17at 16:45; Start 11/23/17 at 17:00; Stop 11/23/17 at 17:01; Status DC Acetaminophen (Tylenol) 650 mg PRN Q6HRS PRN PO PAIN / TEMP; Start 11/23/17 at 17:45; Status Cancel Multi-Ingredient Ointment (Analgesic [place]) 1 yong PRN QID PRN TP MUSCLE PAIN; Start 11/23/17 at 17:45 Al Hydroxide/Mg Hydroxide (Mylanta Plus Xs) 15 ml PRN AFTMEALHC PRN PO DYSPEPSIA; Start 11/23/17 at 17:45 Magnesium Hydroxide (Milk Of Magnesia) 2,400 mg PRN QHS PRN PO CONSTIPATION Last administered on 11/27/17 20:49; Start 11/23/17 at 17:45 Aripiprazole (Abilify) 15 mg BID PO Last administered on 11/27/17 20:39; Start 11/24/17 at 09:00 Clonazepam (KlonoPIN) 0.5 mg BID PO Last administered on 11/27/17 20:44; Start 11/24/17 at 09:00 Haloperidol Lactate (Haldol) 5 mg PRN Q4HRS PRN IM AGITATION; Start 11/23/17 at 22:15 Haloperidol (Haldol) 20 mg BID PO Last administered on 11/27/17 08:57; Start 11/24/17 at 09:00; Stop 11/27/17 at 18:23; Status DC Acetaminophen (Tylenol) 500 mg PRN Q6HRS PRN PO PAIN Last administered on at 11:38; Start 11/23/17 at 22:15 Amlodipine Besylate (Norvasc) 10 mg DAILY PO Last administered on 11/27/17 08: 56; Start 11/24/17 at 09:00 Aspirin (Aspirin Enteric Coated) 81 mg DAILY PO Last administered on 11/27/17 08:57; Start 11/24/17 at 09:00 Cetirizine HCl (ZyrTEC) 10 mg DAILY PO Last administered on 11/27/17 08:56; Start 11/24/17 at 09:00 Clonidine HCl (Catapres) 0.1 mg HS PO Last administered on 11/27/17 20:40; Start 11/24/17 at 21:00 Docusate Sodium (Colace) 100 mg DAILY PO Last administered on 11/27/17 08:58; Start 11/24/17 at 09:00 Docusate Sodium (Colace) 100 mg PRN DAILY PRN PO CONSTIPATION; Start 11/23/17 at 22:15 Erythromycin (E-Mycin) 250 mg TIDPC PO Last administered on 11/25/17 16:39; Start 11/24/17 at 08:30; Stop 11/25/17 at 18:49; Status DC Famotidine (Pepcid) 20 mg BID PO Last administered on 11/27/17 20:41; Start at 09:00 Furosemide (Lasix) 40 mg DAILY PO Last administered on 11/27/17 08:56; Start 11/24/17 at 09:00 Gabapentin (Neurontin) 300 mg BID PO Last administered on 11/27/17 20:41; Start 11/24/17 at 09:00 Gemfibrozil (Lopid) 600 mg BIDWMEALS PO Last administered on 11/27/17 17:28; Start 11/24/17 at 08:00 Glucagon (Glucagen Kit) 1 mg PRN 1X PRN SQ hypoglycemia; Start 11/23/17 at 22: 15 Insulin Human Lispro (HumaLOG) 4 units DAILYWBKFT SQ Last administered on 08:10; Start 11/24/17 at 08:00 Insulin Human Lispro (HumaLOG) 8 units DAILYBFRLUN SQ Last administered on 11/27 12:24; Start 11/24/17 at 11:30 Insulin Human Lispro (HumaLOG) 10 units DAILYBFRSUP SQ Last administered on 17:27; Start 11/24/17 at 17:00 Insulin Glargine (Lantus) 16 units HS SQ Last administered on 11/27/17 20:45; Start 11/23/17 at 23:00 Insulin Glargine (Lantus) 26 units DAILYWBKFT SQ Last administered on 09:07; Start 11/24/17 at 08:00 Lisinopril (Prinivil) 20 mg DAILY PO Last administered on 11/27/17 08:58; Start 11/24/17 at 09:00 Magnesium Oxide (Magnesium Oxide) 400 mg DAILY PO Last administered on 08:56; Start 11/24/17 at 09:00 Sennosides (Senna) 8.6 mg BID PO Last administered on 11/27/17 20:41; Start at 09:00 Tramadol HCl (Ultram) 50 mg PRN Q6HRS PRN PO PAIN Last administered on 23:34; Start 11/23/17 at 22:15 Fluticasone Propionate (Flonase) 2 spray PRN DAILY PRN NS ALLERGIES Last administered on 11/25/17 00:29; Start 11/24/17 at 09:00 Non-Formulary Medication (Gly/Dimeth/ Petrolat,Wht/ Water (Moisturizing Cream)) 1 yong PRN PRN TP skin protectant; Start 11/23/17 at 22:15; Status UNV Non-Formulary Medication (Mag Hydrox/Al Hydrox/Simeth (Mintox Suspension)) 15 ml PRN BID PRN PO gerd; Start 11/23/17 at 22:15; Status UNV Non-Formulary Medication (Magnesium Hydroxide (Milk Of Magnesia)) 2,400 mg PRN DAILY PRN PO CONSTIPATION; Start 11/23/17 at 22:15; Status UNV Multivitamins/ Calcium (Thera-M Plus) 1 tab DAILY PO Last administered on 08:57; Start 11/24/17 at 09:00 Pioglitazone HCl (Actos) 30 mg DAILY PO Last administered on 11/27/17 09:02; Start 11/24/17 at 09:00 Potassium Chloride (Klor-Con) 10 meq DAILY PO Last administered on 11/27/17 08 :57; Start 11/24/17 at 09:00 Simethicone (Gas-X) 120 mg TID PO Last administered on 11/27/17 20:41; Start 11/24/17 at 09:00 Divalproex Sodium (Depakote Er) 500 mg HS PO Last administered on 11/26/17 19: 33; Start 11/24/17 at 21:00; Stop 11/27/17 at 18:23; Status DC Phenylephrine/ Shark Liver Oil (Preparation H) 1 supp PRN Q8HRS PRN DC RECTAL PAIN; Start 11/24/17 at 19:00 Lactobacillus Rhamnosus (Culturelle) 1 cap BID PO Last administered on at 20:40; Start 11/25/17 at 21:00 Fluvoxamine Maleate (Luvox) 25 mg HS PO Last administered on 11/27/17at 20:41; Start 11/25/17 at 21:00 Olanzapine (ZyPREXA ZYDIS) 2.5 mg PRN Q2HR PRN PO PSYCHOSIS; Start 11/25/17 at 18:15 Cyanocobalamin (Vitamin B-12) 1,000 mcg QMONTH IM ; Start 11/26/17 at 09:00; Stop 11/26/17 at 09:00; Status DC Divalproex Sodium (Depakote Er) 1,000 mg HS PO Last administered on 11/27/17at 20:44; Start 11/27/17 at 21:00 Haloperidol (Haldol) 20 mg DAILY PO ; Start 11/28/17 at 09:00 Haloperidol (Haldol) 15 mg HS PO Last administered on 11/27/17at 20:41; Start at 21:00 Active Scripts Active Reported Tramadol Hcl (Tramadol HCl) 50 Mg Tablet 50 Mg PO PRN Q6HRS PRN Multi Vitamin Daily (Multivitamin) 1 Each Tablet 1 Tab PO DAILY Simethicone 125 Mg Capsule 125 Mg PO TID Senna Lax (Sennosides) 8.6 Mg Tablet 8.6 Mg PO BID Potassium Chloride 10 Meq Tablet.er 10 Meq PO DAILY Actos (Pioglitazone Hcl) 30 Mg Tablet 30 Mg PO DAILY Pepcid (Famotidine) 20 Mg Tablet 20 Mg PO BID Novolog Flexpen (Insulin Aspart) 100 Unit/1 Ml Insuln.pen 8 Units SQ DAILYBFRLUN Novolog Flexpen (Insulin Aspart) 100 Unit/1 Ml Insuln.pen 4 Units SQ DAILYWBKFT Novolog Flexpen (Insulin Aspart) 100 Unit/1 Ml Insuln.pen 10 Unit SQ DAILYBFRSUP Moisturizing Cream (Gly/Dimeth/Petrolat,Wht/Water) 453 Gm Cream..g. 1 Yong TP PRN PRN Mintox Suspension (Mag Hydrox/Al Hydrox/Simeth) 355 Ml Oral.susp 15 Ml PO PRN BID PRN Milk Of Magnesia (Magnesium Hydroxide) 2,400 Mg/10 Ml Oral.susp 2,400 Mg PO PRN DAILY PRN Mapap (Acetaminophen) 500 Mg Tablet 500 Mg PO PRN Q6HRS PRN Magnesium Oxide 400 Mg Tablet 500 Mg PO DAILY Lisinopril 20 Mg Tablet 20 Mg PO DAILY Lipitor (Atorvastatin Calcium) 10 Mg Tablet 10 Mg PO QHS Levemir Flextouch (Insulin Detemir) 100 Unit/1 Ml Insuln.pen 26 Units SQ DAILYWBKFT Levemir Flextouch (Insulin Detemir) 100 Unit/1 Ml Insuln.pen 16 Units SQ HS Lasix (Furosemide) 40 Mg Tablet 40 Mg PO DAILY Haloperidol 10 Mg Tablet 20 Mg PO BID Haloperidol Lactate 5 Mg/1 Ml Vial 5 Mg IJ PRN Q4HRS PRN Glucagen (Glucagon,Human Recombinant) 1 Mg/1 Ml Vial 1 Mg IJ PRN PRN Gemfibrozil 600 Mg Tablet 600 Mg PO BID Gabapentin 300 Mg Capsule 300 Mg PO BID Flonase Allergy Relief (Fluticasone Propionate) 9.9 Ml [place].susp 2 Sprays NS PRN PRN Erythromycin (Erythromycin Base) 250 Mg Tablet 250 Mg PO TIDPC Docusate Sodium 100 Mg Capsule 100 Mg PO DAILY Docusate Sodium 100 Mg Capsule 100 Mg PO PRN DAILY PRN Clonidine Hcl 0.1 Mg Tablet 0.1 Mg PO HS Clonazepam 0.5 Mg Tablet 0.5 Mg PO BID Cetirizine Hcl 10 Mg Tablet 10 Mg PO DAILY Aspirin Ec (Aspirin) 81 Mg Tablet.dr 81 Mg PO DAILY Amlodipine Besylate 10 Mg Tablet 10 Mg PO DAILY Abilify (Aripiprazole) 15 Mg Tablet 15 Mg PO BID I have reviewed the current psychotropics carefully including drug interactions. Risk benefit ratio favors no change other than as noted in my dictated progress note. Diagnosis: Problems: (1) Peripheral neuropathy (2) UTI (urinary tract infection) (3) Skin tear (4) Acute adjustment disorder (5) Anxiety disorder (6) Bipolar affective, mixed, sev w/ psych (7) Schizoaffective disorder, chronic condition with acute exacerbation (8) Schizophrenia, disorganized, subchronic with acute exacerbation JASS HUNG MD Nov 27, 2017 20:56
--- NOTE | 2017-11-27 22:41 | PN ---
DATE: 11/26/2017 This is a late entry for 11/26/2017 and covers the elements not covered in my initial note of 11/26/2017. SUBJECTIVE: I met with the patient in the evening, staffed with the entire treatment team in the morning. The patient slept 5-3/4 hours. Reviewed her past history and she was abandoned by her parents and other adults on several occasions growing up and social service staff discussed the impact this had over the years on her. Family then shifted off to [place]. She remains anxious, needy, back and forth to the nursing station [facility] [place], but as I met with the evening she was little sedated in bed. REVIEW OF SYSTEMS: No CV, , pulmonary, eye system symptoms on review, has vague somatic symptoms. MENTAL STATUS EXAM: Oriented to herself and situation. Speech coherent, rapid at times. Abstraction fair, computation impaired, language function intact. Mood and affect remains labile, some improvement. LABORATORY DATA: Reviewed. IMPRESSION: Schizoaffective disorder, bipolar type, mixed with psychotic features. PLAN: Continue psychotropics mentioned in my initial note. Depakote will be adjusted and then the Haldol reduced. JASS HUNG MD DR: KATIANA/alicia JOB#: [id number] / [id number]
[2017-11-28 05:55] VITALS: BP 116/60
[2017-11-28] MEDS: INSULIN LISPRO 300 UNITS/3 ML INSULN.PEN. SQ SCH ×3 (08:00→17:00)
[2017-11-28] MEDS: INSULIN GLARGINE 300 UNITS/3 ML INSULN.PEN. SQ SCH ×2 (08:00→21:09)
[2017-11-28] MEDS: PIOGLITAZONE 15 MG TABLET. PO SCH (08:03)
[2017-11-28] MEDS: GEMFIBROZIL 600 MG TABLET. PO SCH ×2 (08:03→18:15)
[2017-11-28] MEDS: FAMOTIDINE 20 MG TABLET PO SCH ×2 (08:03→21:00)
[2017-11-28] MEDS: CETIRIZINE HCL 10 MG TABLET PO SCH (08:03)
[2017-11-28] MEDS: amLODIPine BESYLATE 10 MG TABLET PO SCH (08:04)
[2017-11-28] MEDS: LISINOPRIL 20 MG TABLET PO SCH (08:04)
[2017-11-28] MEDS: MAGNESIUM OXIDE 400 MG TABLET PO SCH (08:04)
[2017-11-28] MEDS: MULTIVITAMIN with MINERAL TABLET. PO SCH (08:04)
[2017-11-28] MEDS: FUROSEMIDE 40 MG TABLET PO SCH (08:04)
[2017-11-28] MEDS: ASPIRIN ENTERIC COATED 81 MG TABLET.DR. PO SCH (08:04)
[2017-11-28] MEDS: DOCUSATE SODIUM 100 MG CAPSULE PO SCH (08:04)
[2017-11-28] MEDS: ARIPiprazole 15 MG TABLET PO SCH ×2 (08:05→20:59)
[2017-11-28] MEDS: SENNOSIDES 8.6 MG TABLET PO SCH ×2 (08:05→21:00)
[2017-11-28] MEDS: SIMETHICONE 80 MG TAB.CHEW PO SCH ×3 (08:05→21:00)
[2017-11-28] MEDS: POTASSIUM CHLORIDE 10 MEQ TABLET.ER. PO SCH (08:05)
[2017-11-28] MEDS: GABAPENTIN 300 MG CAPSULE. PO SCH ×2 (08:05→20:59)
[2017-11-28] MEDS: LACTOBACILLUS RHAMNOSUS GG 1 CAPSULE. PO SCH ×2 (08:05→20:59)
[2017-11-28] MEDS: clonazePAM 0.5 MG TABLET PO SCH ×2 (08:09→20:59)
[2017-11-28] MEDS: HALOPERIDOL 5 MG TABLET PO SCH ×2 (09:00→21:05)
[2017-11-28 16:16] VITALS: BP 121/71
[2017-11-28] MEDS: cloNIDine HCL 0.1 MG TABLET PO SCH (20:59)
[2017-11-28] MEDS: DIVALPROEX ER 500 MG TAB.ER.24H PO SCH (21:00)
--- NOTE | 2017-11-28 22:39 | PDOC ---
Exam Note: Tay Note: Please also refer to the separate dictated note~for this date of service dictated separately.~Patient seen individually. Discussed the patient with Nursing staff reviewed the chart.~Reviewed interim history and current functioning. Reviewed vital signs,~Labs/ Radiology~and current medications noted below. Continue current treatment with the changes noted in the dictated addendum note Assessment: Vital Signs: Vital Signs Date Time Temp Pulse Resp B/P (MAP) Pulse Ox O2 Delivery O2 Flow Rate FiO2 11/28/17 20:59 68 121/71 11/28/17 16:16 97.5 18 100 Room Air I&O Intake and Output 11/28/17 07:00 Intake Total 1320 ml Balance 1320 ml Intake Oral 1320 ml Labs: Laboratory Tests Test 11/28/17 07:09 11/28/17 11:59 11/28/17 17:00 11/28/17 19:09 Glucose (Fingerstick) 100 mg/dL (70-99) H 188 mg/dL (70-99) H 220 mg/dL (70-99) H 216 mg/dL (70-99) H Current Medications: Meds: Current Medications Ciprofloxacin Lactate 200 ml @ 200 mls/hr 1X ONCE IV ; Start 11/23/17 at 16:30 ; Stop 11/23/17 at 16:31; Status DC Ciprofloxacin (Cipro) 500 mg 1X ONCE PO Last administered on 11/23/17at 16:45; Start 11/23/17 at 17:00; Stop 11/23/17 at 17:01; Status DC Acetaminophen (Tylenol) 650 mg PRN Q6HRS PRN PO PAIN / TEMP; Start 11/23/17 at 17:45; Status Cancel Multi-Ingredient Ointment (Analgesic [place]) 1 yong PRN QID PRN TP MUSCLE PAIN; Start 11/23/17 at 17:45 Al Hydroxide/Mg Hydroxide (Mylanta Plus Xs) 15 ml PRN AFTMEALHC PRN PO DYSPEPSIA; Start 11/23/17 at 17:45 Magnesium Hydroxide (Milk Of Magnesia) 2,400 mg PRN QHS PRN PO CONSTIPATION Last administered on 11/27/17at 20:49; Start 11/23/17 at 17:45 Aripiprazole (Abilify) 15 mg BID PO Last administered on 11/28/17at 20:59; Start 11/24/17 at 09:00 Clonazepam (KlonoPIN) 0.5 mg BID PO Last administered on 11/28/17 20:59; Start 11/24/17 at 09:00 Haloperidol Lactate (Haldol) 5 mg PRN Q4HRS PRN IM AGITATION; Start 11/23/17 at 22:15 Haloperidol (Haldol) 20 mg BID PO Last administered on 11/27/17 08:57; Start 11/24/17 at 09:00; Stop 11/27/17 at 18:23; Status DC Acetaminophen (Tylenol) 500 mg PRN Q6HRS PRN PO PAIN Last administered on at 11:38; Start 11/23/17 at 22:15 Amlodipine Besylate (Norvasc) 10 mg DAILY PO Last administered on 11/28/17 08: 04; Start 11/24/17 at 09:00 Aspirin (Aspirin Enteric Coated) 81 mg DAILY PO Last administered on 11/28/17 08:04; Start 11/24/17 at 09:00 Cetirizine HCl (ZyrTEC) 10 mg DAILY PO Last administered on 11/28/17 08:03; Start 11/24/17 at 09:00 Clonidine HCl (Catapres) 0.1 mg HS PO Last administered on 11/28/17 20:59; Start 11/24/17 at 21:00 Docusate Sodium (Colace) 100 mg DAILY PO Last administered on 11/28/17 08:04; Start 11/24/17 at 09:00 Docusate Sodium (Colace) 100 mg PRN DAILY PRN PO CONSTIPATION; Start 11/23/17 at 22:15 Erythromycin (E-Mycin) 250 mg TIDPC PO Last administered on 11/25/17 16:39; Start 11/24/17 at 08:30; Stop 11/25/17 at 18:49; Status DC Famotidine (Pepcid) 20 mg BID PO Last administered on 11/28/17at 21:00; Start at 09:00 Furosemide (Lasix) 40 mg DAILY PO Last administered on 11/28/17 08:04; Start 11/24/17 at 09:00 Gabapentin (Neurontin) 300 mg BID PO Last administered on 11/28/17 20:59; Start 11/24/17 at 09:00 Gemfibrozil (Lopid) 600 mg BIDWMEALS PO Last administered on 11/28/17at 18:15; Start 11/24/17 at 08:00 Glucagon (Glucagen Kit) 1 mg PRN 1X PRN SQ hypoglycemia; Start 11/23/17 at 22: 15 Insulin Human Lispro (HumaLOG) 4 units DAILYWBKFT SQ Last administered on at 08:00; Start 11/24/17 at 08:00 Insulin Human Lispro (HumaLOG) 8 units DAILYBFRLUN SQ Last administered on 11/28at 11:30; Start 11/24/17 at 11:30 Insulin Human Lispro (HumaLOG) 10 units DAILYBFRSUP SQ Last administered on at 17:00; Start 11/24/17 at 17:00 Insulin Glargine (Lantus) 16 units HS SQ Last administered on 11/28/17at 21:09; Start 11/23/17 at 23:00 Insulin Glargine (Lantus) 26 units DAILYWBKFT SQ Last administered on at 08:00; Start 11/24/17 at 08:00 Lisinopril (Prinivil) 20 mg DAILY PO Last administered on 11/28/17 08:04; Start 11/24/17 at 09:00 Magnesium Oxide (Magnesium Oxide) 400 mg DAILY PO Last administered on 08:04; Start 11/24/17 at 09:00 Sennosides (Senna) 8.6 mg BID PO Last administered on 11/28/17 21:00; Start at 09:00 Tramadol HCl (Ultram) 50 mg PRN Q6HRS PRN PO PAIN Last administered on 23:34; Start 11/23/17 at 22:15 Fluticasone Propionate (Flonase) 2 spray PRN DAILY PRN NS ALLERGIES Last administered on 11/25/17at 00:29; Start 11/24/17 at 09:00 Non-Formulary Medication (Gly/Dimeth/ Petrolat,Wht/ Water (Moisturizing Cream)) 1 yong PRN PRN TP skin protectant; Start 11/23/17 at 22:15; Status UNV Non-Formulary Medication (Mag Hydrox/Al Hydrox/Simeth (Mintox Suspension)) 15 ml PRN BID PRN PO gerd; Start 11/23/17 at 22:15; Status UNV Non-Formulary Medication (Magnesium Hydroxide (Milk Of Magnesia)) 2,400 mg PRN DAILY PRN PO CONSTIPATION; Start 11/23/17 at 22:15; Status UNV Multivitamins/ Calcium (Thera-M Plus) 1 tab DAILY PO Last administered on at 08:04; Start 11/24/17 at 09:00 Pioglitazone HCl (Actos) 30 mg DAILY PO Last administered on 11/28/17 08:03; Start 11/24/17 at 09:00 Potassium Chloride (Klor-Con) 10 meq DAILY PO Last administered on 11/28/17at 08 :05; Start 11/24/17 at 09:00 Simethicone (Gas-X) 120 mg TID PO Last administered on 11/28/17at 21:00; Start 11/24/17 at 09:00 Divalproex Sodium (Depakote Er) 500 mg HS PO Last administered on 11/26/17at 19: 33; Start 11/24/17 at 21:00; Stop 11/27/17 at 18:23; Status DC Phenylephrine/ Shark Liver Oil (Preparation H) 1 supp PRN Q8HRS PRN [place] RECTAL PAIN; Start 11/24/17 at 19:00 Lactobacillus Rhamnosus (Culturelle) 1 cap BID PO Last administered on at 20:59; Start 11/25/17 at 21:00 Fluvoxamine Maleate (Luvox) 25 mg HS PO Last administered on 11/28/17at 20:59; Start 11/25/17 at 21:00 Olanzapine (ZyPREXA ZYDIS) 2.5 mg PRN Q2HR PRN PO PSYCHOSIS; Start 11/25/17 at 18:15 Cyanocobalamin (Vitamin B-12) 1,000 mcg QMONTH IM ; Start 11/26/17 at 09:00; Stop 11/26/17 at 09:00; Status DC Divalproex Sodium (Depakote Er) 1,000 mg HS PO Last administered on 11/28/17at 21:00; Start 11/27/17 at 21:00 Haloperidol (Haldol) 20 mg DAILY PO Last administered on 11/28/17at 09:00; Start 11/28/17 at 09:00 Haloperidol (Haldol) 15 mg HS PO Last administered on 11/28/17at 21:05; Start at 21:00 Active Scripts Active Reported Tramadol Hcl (Tramadol HCl) 50 Mg Tablet 50 Mg PO PRN Q6HRS PRN Multi Vitamin Daily (Multivitamin) 1 Each Tablet 1 Tab PO DAILY Simethicone 125 Mg Capsule 125 Mg PO TID Senna Lax (Sennosides) 8.6 Mg Tablet 8.6 Mg PO BID Potassium Chloride 10 Meq Tablet.er 10 Meq PO DAILY Actos (Pioglitazone Hcl) 30 Mg Tablet 30 Mg PO DAILY Pepcid (Famotidine) 20 Mg Tablet 20 Mg PO BID Novolog Flexpen (Insulin Aspart) 100 Unit/1 Ml Insuln.pen 8 Units SQ DAILYBFRLUN Novolog Flexpen (Insulin Aspart) 100 Unit/1 Ml Insuln.pen 4 Units SQ DAILYWBKFT Novolog Flexpen (Insulin Aspart) 100 Unit/1 Ml Insuln.pen 10 Unit SQ DAILYBFRSUP Moisturizing Cream (Gly/Dimeth/Petrolat,Wht/Water) 453 Gm Cream..g. 1 Yong TP PRN PRN Mintox Suspension (Mag Hydrox/Al Hydrox/Simeth) 355 Ml Oral.susp 15 Ml PO PRN BID PRN Milk Of Magnesia (Magnesium Hydroxide) 2,400 Mg/10 Ml Oral.susp 2,400 Mg PO PRN DAILY PRN Mapap (Acetaminophen) 500 Mg Tablet 500 Mg PO PRN Q6HRS PRN Magnesium Oxide 400 Mg Tablet 500 Mg PO DAILY Lisinopril 20 Mg Tablet 20 Mg PO DAILY Lipitor (Atorvastatin Calcium) 10 Mg Tablet 10 Mg PO QHS Levemir Flextouch (Insulin Detemir) 100 Unit/1 Ml Insuln.pen 26 Units SQ DAILYWBKFT Levemir Flextouch (Insulin Detemir) 100 Unit/1 Ml Insuln.pen 16 Units SQ HS Lasix (Furosemide) 40 Mg Tablet 40 Mg PO DAILY Haloperidol 10 Mg Tablet 20 Mg PO BID Haloperidol Lactate 5 Mg/1 Ml Vial 5 Mg IJ PRN Q4HRS PRN Glucagen (Glucagon,Human Recombinant) 1 Mg/1 Ml Vial 1 Mg IJ PRN PRN Gemfibrozil 600 Mg Tablet 600 Mg PO BID Gabapentin 300 Mg Capsule 300 Mg PO BID Flonase Allergy Relief (Fluticasone Propionate) 9.9 Ml [place].susp 2 Sprays NS PRN PRN Erythromycin (Erythromycin Base) 250 Mg Tablet 250 Mg PO TIDPC Docusate Sodium 100 Mg Capsule 100 Mg PO DAILY Docusate Sodium 100 Mg Capsule 100 Mg PO PRN DAILY PRN Clonidine Hcl 0.1 Mg Tablet 0.1 Mg PO HS Clonazepam 0.5 Mg Tablet 0.5 Mg PO BID Cetirizine Hcl 10 Mg Tablet 10 Mg PO DAILY Aspirin Ec (Aspirin) 81 Mg Tablet.dr 81 Mg PO DAILY Amlodipine Besylate 10 Mg Tablet 10 Mg PO DAILY Abilify (Aripiprazole) 15 Mg Tablet 15 Mg PO BID I have reviewed the current psychotropics carefully including drug interactions. Risk benefit ratio favors no change other than as noted in my dictated progress note. Diagnosis: Problems: (1) Acute adjustment disorder (2) Anxiety disorder (3) Bipolar affective, mixed, sev w/ psych (4) Schizoaffective disorder, chronic condition with acute exacerbation (5) Schizophrenia, disorganized, subchronic with acute exacerbation JASS HUNG MD Nov 28, 2017 22:39
[2017-11-29 06:32] VITALS: BP 108/57
[2017-11-29] MEDS: SIMETHICONE 80 MG TAB.CHEW PO SCH ×3 (08:12→19:23)
[2017-11-29] MEDS: FUROSEMIDE 40 MG TABLET PO SCH (08:12)
[2017-11-29] MEDS: CETIRIZINE HCL 10 MG TABLET PO SCH (08:12)
[2017-11-29] MEDS: PIOGLITAZONE 15 MG TABLET. PO SCH (08:12)
[2017-11-29] MEDS: GEMFIBROZIL 600 MG TABLET. PO SCH ×2 (08:12→17:00)
[2017-11-29] MEDS: DOCUSATE SODIUM 100 MG CAPSULE PO SCH (08:13)
[2017-11-29] MEDS: POTASSIUM CHLORIDE 10 MEQ TABLET.ER. PO SCH (08:13)
[2017-11-29] MEDS: ASPIRIN ENTERIC COATED 81 MG TABLET.DR. PO SCH (08:13)
[2017-11-29] MEDS: FAMOTIDINE 20 MG TABLET PO SCH ×2 (08:13→19:22)
[2017-11-29] MEDS: GABAPENTIN 300 MG CAPSULE. PO SCH ×2 (08:14→19:23)
[2017-11-29] MEDS: LACTOBACILLUS RHAMNOSUS GG 1 CAPSULE. PO SCH ×2 (08:14→19:24)
[2017-11-29] MEDS: SENNOSIDES 8.6 MG TABLET PO SCH ×2 (08:14→19:22)
[2017-11-29] MEDS: MULTIVITAMIN with MINERAL TABLET. PO SCH (08:14)
[2017-11-29] MEDS: HALOPERIDOL 5 MG TABLET PO SCH ×2 (08:14→19:24)
[2017-11-29] MEDS: MAGNESIUM OXIDE 400 MG TABLET PO SCH (08:14)
[2017-11-29] MEDS: ARIPiprazole 15 MG TABLET PO SCH ×2 (08:14→19:21)
[2017-11-29] MEDS: amLODIPine BESYLATE 10 MG TABLET PO SCH (08:15)
[2017-11-29] MEDS: LISINOPRIL 20 MG TABLET PO SCH (08:15)
[2017-11-29] MEDS: clonazePAM 0.5 MG TABLET PO SCH ×2 (08:16→19:24)
[2017-11-29] MEDS: INSULIN LISPRO 300 UNITS/3 ML INSULN.PEN. SQ SCH ×3 (08:18→18:01)
[2017-11-29] MEDS: INSULIN GLARGINE 300 UNITS/3 ML INSULN.PEN. SQ SCH ×2 (08:19→21:57)
[2017-11-29 15:45] VITALS: BP 168/68
[2017-11-29] MEDS: DIVALPROEX ER 500 MG TAB.ER.24H PO SCH (19:22)
[2017-11-29] MEDS: cloNIDine HCL 0.1 MG TABLET PO SCH (19:24)
--- NOTE | 2017-11-29 20:58 | PDOC ---
Exam Note: Tay Note: Please also refer to the separate dictated note~for this date of service dictated separately.~Patient seen individually. Discussed the patient with Nursing staff reviewed the chart.~Reviewed interim history and current functioning. Reviewed vital signs,~Labs/ Radiology~and current medications noted below. Continue current treatment with the changes noted in the dictated addendum note Assessment: Vital Signs: Vital Signs Date Time Temp Pulse Resp B/P (MAP) Pulse Ox O2 Delivery O2 Flow Rate FiO2 11/29/17 19:24 76 168/68 11/29/17 15:45 98.1 20 98 11/29/17 06:32 Room Air I&O Intake and Output 11/29/17 07:00 Intake Total 1560 ml Balance 1560 ml Intake Oral 1560 ml Labs: Laboratory Tests Test 11/29/17 07:38 11/29/17 11:26 11/29/17 16:14 11/29/17 19:28 Glucose (Fingerstick) 126 mg/dL (70-99) H 283 mg/dL (70-99) H 239 mg/dL (70-99) H 219 mg/dL (70-99) H Current Medications: Meds: Current Medications Ciprofloxacin Lactate 200 ml @ 200 mls/hr 1X ONCE IV ; Start 11/23/17 at 16:30 ; Stop 11/23/17 at 16:31; Status DC Ciprofloxacin (Cipro) 500 mg 1X ONCE PO Last administered on 11/23/17at 16:45; Start 11/23/17 at 17:00; Stop 11/23/17 at 17:01; Status DC Acetaminophen (Tylenol) 650 mg PRN Q6HRS PRN PO PAIN / TEMP; Start 11/23/17 at 17:45; Status Cancel Multi-Ingredient Ointment (Analgesic [place]) 1 yong PRN QID PRN TP MUSCLE PAIN; Start 11/23/17 at 17:45 Al Hydroxide/Mg Hydroxide (Mylanta Plus Xs) 15 ml PRN AFTMEALHC PRN PO DYSPEPSIA; Start 11/23/17 at 17:45 Magnesium Hydroxide (Milk Of Magnesia) 2,400 mg PRN QHS PRN PO CONSTIPATION Last administered on 11/27/17at 20:49; Start 11/23/17 at 17:45 Aripiprazole (Abilify) 15 mg BID PO Last administered on 11/29/17 19:21; Start 11/24/17 at 09:00 Clonazepam (KlonoPIN) 0.5 mg BID PO Last administered on 11/29/17 19:24; Start 11/24/17 at 09:00 Haloperidol Lactate (Haldol) 5 mg PRN Q4HRS PRN IM AGITATION; Start 11/23/17 at 22:15 Haloperidol (Haldol) 20 mg BID PO Last administered on 11/27/17 08:57; Start 11/24/17 at 09:00; Stop 11/27/17 at 18:23; Status DC Acetaminophen (Tylenol) 500 mg PRN Q6HRS PRN PO PAIN Last administered on 11:38; Start 11/23/17 at 22:15 Amlodipine Besylate (Norvasc) 10 mg DAILY PO Last administered on 11/28/17 08: 04; Start 11/24/17 at 09:00 Aspirin (Aspirin Enteric Coated) 81 mg DAILY PO Last administered on 11/29/17 08:13; Start 11/24/17 at 09:00 Cetirizine HCl (ZyrTEC) 10 mg DAILY PO Last administered on 11/29/17 08:12; Start 11/24/17 at 09:00 Clonidine HCl (Catapres) 0.1 mg HS PO Last administered on 11/29/17 19:24; Start 11/24/17 at 21:00 Docusate Sodium (Colace) 100 mg DAILY PO Last administered on 11/29/17 08:13; Start 11/24/17 at 09:00 Docusate Sodium (Colace) 100 mg PRN DAILY PRN PO CONSTIPATION; Start 11/23/17 at 22:15 Erythromycin (E-Mycin) 250 mg TIDPC PO Last administered on 11/25/17 16:39; Start 11/24/17 at 08:30; Stop 11/25/17 at 18:49; Status DC Famotidine (Pepcid) 20 mg BID PO Last administered on 11/29/17 19:22; Start at 09:00 Furosemide (Lasix) 40 mg DAILY PO Last administered on 11/29/17 08:12; Start 11/24/17 at 09:00 Gabapentin (Neurontin) 300 mg BID PO Last administered on 11/29/17 19:23; Start 11/24/17 at 09:00 Gemfibrozil (Lopid) 600 mg BIDWMEALS PO Last administered on 11/29/17at 17:00; Start 11/24/17 at 08:00 Glucagon (Glucagen Kit) 1 mg PRN 1X PRN SQ hypoglycemia; Start 11/23/17 at 22: 15 Insulin Human Lispro (HumaLOG) 4 units DAILYWBKFT SQ Last administered on 08:18; Start 11/24/17 at 08:00 Insulin Human Lispro (HumaLOG) 8 units DAILYBFRLUN SQ Last administered on 11/29at 11:30; Start 11/24/17 at 11:30 Insulin Human Lispro (HumaLOG) 10 units DAILYBFRSUP SQ Last administered on at 18:01; Start 11/24/17 at 17:00 Insulin Glargine (Lantus) 16 units HS SQ Last administered on 11/28/17at 21:09; Start 11/23/17 at 23:00 Insulin Glargine (Lantus) 26 units DAILYWBKFT SQ Last administered on 08:19; Start 11/24/17 at 08:00 Lisinopril (Prinivil) 20 mg DAILY PO Last administered on 11/28/17at 08:04; Start 11/24/17 at 09:00 Magnesium Oxide (Magnesium Oxide) 400 mg DAILY PO Last administered on 08:14; Start 11/24/17 at 09:00 Sennosides (Senna) 8.6 mg BID PO Last administered on 11/29/17 19:22; Start at 09:00 Tramadol HCl (Ultram) 50 mg PRN Q6HRS PRN PO PAIN Last administered on 23:34; Start 11/23/17 at 22:15 Fluticasone Propionate (Flonase) 2 spray PRN DAILY PRN NS ALLERGIES Last administered on 11/25/17at 00:29; Start 11/24/17 at 09:00 Non-Formulary Medication (Gly/Dimeth/ Petrolat,Wht/ Water (Moisturizing Cream)) 1 yong PRN PRN TP skin protectant; Start 11/23/17 at 22:15; Status UNV Non-Formulary Medication (Mag Hydrox/Al Hydrox/Simeth (Mintox Suspension)) 15 ml PRN BID PRN PO gerd; Start 11/23/17 at 22:15; Status UNV Non-Formulary Medication (Magnesium Hydroxide (Milk Of Magnesia)) 2,400 mg PRN DAILY PRN PO CONSTIPATION; Start 11/23/17 at 22:15; Status UNV Multivitamins/ Calcium (Thera-M Plus) 1 tab DAILY PO Last administered on 08:14; Start 11/24/17 at 09:00 Pioglitazone HCl (Actos) 30 mg DAILY PO Last administered on 11/29/17 08:12; Start 11/24/17 at 09:00 Potassium Chloride (Klor-Con) 10 meq DAILY PO Last administered on 11/29/17 08 :13; Start 11/24/17 at 09:00 Simethicone (Gas-X) 120 mg TID PO Last administered on 11/29/17 19:23; Start 11/24/17 at 09:00 Divalproex Sodium (Depakote Er) 500 mg HS PO Last administered on 11/26/17at 19: 33; Start 11/24/17 at 21:00; Stop 11/27/17 at 18:23; Status DC Phenylephrine/ Shark Liver Oil (Preparation H) 1 supp PRN Q8HRS PRN [place] RECTAL PAIN; Start 11/24/17 at 19:00 Lactobacillus Rhamnosus (Culturelle) 1 cap BID PO Last administered on at 19:24; Start 11/25/17 at 21:00 Fluvoxamine Maleate (Luvox) 25 mg HS PO Last administered on 11/29/17at 19:22; Start 11/25/17 at 21:00 Olanzapine (ZyPREXA ZYDIS) 2.5 mg PRN Q2HR PRN PO PSYCHOSIS; Start 11/25/17 at 18:15 Cyanocobalamin (Vitamin B-12) 1,000 mcg QMONTH IM ; Start 11/26/17 at 09:00; Stop 11/26/17 at 09:00; Status DC Divalproex Sodium (Depakote Er) 1,000 mg HS PO Last administered on 11/29/17at 19:22; Start 11/27/17 at 21:00 Haloperidol (Haldol) 20 mg DAILY PO Last administered on 11/29/17at 08:14; Start 11/28/17 at 09:00 Haloperidol (Haldol) 15 mg HS PO Last administered on 11/29/17at 19:24; Start at 21:00 Polyethylene Glycol (miraLAX) 17 gm DAILY PO ; Start 11/30/17 at 12:30; Stop at 12:30; Status DC Polyethylene Glycol (miraLAX) 17 gm DAILY PO ; Start 11/30/17 at 09:00 Active Scripts Active Reported Tramadol Hcl (Tramadol HCl) 50 Mg Tablet 50 Mg PO PRN Q6HRS PRN Multi Vitamin Daily (Multivitamin) 1 Each Tablet 1 Tab PO DAILY Simethicone 125 Mg Capsule 125 Mg PO TID Senna Lax (Sennosides) 8.6 Mg Tablet 8.6 Mg PO BID Potassium Chloride 10 Meq Tablet.er 10 Meq PO DAILY Actos (Pioglitazone Hcl) 30 Mg Tablet 30 Mg PO DAILY Pepcid (Famotidine) 20 Mg Tablet 20 Mg PO BID Novolog Flexpen (Insulin Aspart) 100 Unit/1 Ml Insuln.pen 8 Units SQ DAILYBFRLUN Novolog Flexpen (Insulin Aspart) 100 Unit/1 Ml Insuln.pen 4 Units SQ DAILYWBKFT Novolog Flexpen (Insulin Aspart) 100 Unit/1 Ml Insuln.pen 10 Unit SQ DAILYBFRSUP Moisturizing Cream (Gly/Dimeth/Petrolat,Wht/Water) 453 Gm Cream..g. 1 Yong TP PRN PRN Mintox Suspension (Mag Hydrox/Al Hydrox/Simeth) 355 Ml Oral.susp 15 Ml PO PRN BID PRN Milk Of Magnesia (Magnesium Hydroxide) 2,400 Mg/10 Ml Oral.susp 2,400 Mg PO PRN DAILY PRN Mapap (Acetaminophen) 500 Mg Tablet 500 Mg PO PRN Q6HRS PRN Magnesium Oxide 400 Mg Tablet 500 Mg PO DAILY Lisinopril 20 Mg Tablet 20 Mg PO DAILY Lipitor (Atorvastatin Calcium) 10 Mg Tablet 10 Mg PO QHS Levemir Flextouch (Insulin Detemir) 100 Unit/1 Ml Insuln.pen 26 Units SQ DAILYWBKFT Levemir Flextouch (Insulin Detemir) 100 Unit/1 Ml Insuln.pen 16 Units SQ HS Lasix (Furosemide) 40 Mg Tablet 40 Mg PO DAILY Haloperidol 10 Mg Tablet 20 Mg PO BID Haloperidol Lactate 5 Mg/1 Ml Vial 5 Mg IJ PRN Q4HRS PRN Glucagen (Glucagon,Human Recombinant) 1 Mg/1 Ml Vial 1 Mg IJ PRN PRN Gemfibrozil 600 Mg Tablet 600 Mg PO BID Gabapentin 300 Mg Capsule 300 Mg PO BID Flonase Allergy Relief (Fluticasone Propionate) 9.9 Ml [place].susp 2 Sprays NS PRN PRN Erythromycin (Erythromycin Base) 250 Mg Tablet 250 Mg PO TIDPC Docusate Sodium 100 Mg Capsule 100 Mg PO DAILY Docusate Sodium 100 Mg Capsule 100 Mg PO PRN DAILY PRN Clonidine Hcl 0.1 Mg Tablet 0.1 Mg PO HS Clonazepam 0.5 Mg Tablet 0.5 Mg PO BID Cetirizine Hcl 10 Mg Tablet 10 Mg PO DAILY Aspirin Ec (Aspirin) 81 Mg Tablet.dr 81 Mg PO DAILY Amlodipine Besylate 10 Mg Tablet 10 Mg PO DAILY Abilify (Aripiprazole) 15 Mg Tablet 15 Mg PO BID I have reviewed the current psychotropics carefully including drug interactions. Risk benefit ratio favors no change other than as noted in my dictated progress note. Diagnosis: Problems: (1) Peripheral neuropathy (2) Skin tear (3) Acute adjustment disorder (4) Anxiety disorder (5) Bipolar affective, mixed, sev w/ psych (6) Schizoaffective disorder, chronic condition with acute exacerbation (7) Schizophrenia, disorganized, subchronic with acute exacerbation JASS HUNG MD Nov 29, 2017 20:58
--- NOTE | 2017-11-30 01:35 | PN ---
DATE: 11/27/2017 This late entry 11/27/2017 covers elements not covered in my initial note 11/27/2017. I met with the patient in the evening of 11/27/2017. She slept 9 hours previous evening. Somewhat anxious, had a tear on her face according to nursing staff because she is "attention seeking" per nursing report. She was somewhat sedated previous evening. GI, complains of some abdominal discomfort, has some abdominal distention. Dr. Bishop has ordered a CT abdomen. Valproic acid level is 22. REVIEW OF SYSTEMS: No CV, , pulmonary, eye, ENT system symptoms on review other than the above. MENTAL STATUS EXAM: Reasonably oriented. Speech is coherent, abstraction fair, computation impaired, language function intact, attention span short. Mood and affect, despite the above, lability is improved. LABORATORY DATA: Reviewed. IMPRESSION: Schizoaffective disorder, bipolar type, mixed with psychotic features. Rest unchanged. PLAN: The patient is on rather high dosages of Haldol 20 mg twice a day, we will reduce to 20 mg in the morning, 15 in the evening. Valproic acid level subtherapeutic at 22, add Depakote ER 500 mg at bedtime, we will increase to 1000 mg at bedtime. Check CBC, CMP, valproic acid level in 3 days. Continue Klonopin, Abilify, ____ with current dosage. MAN Prosper HUNG MD DR: KATIANA/alicia JOB#: [id number] / [id number]
[2017-11-30 06:41] VITALS: BP 129/62
[2017-11-30 07:02] LABS: BASO % 0 % (0-3); EOS # 0.4 x10^3/uL (0.0-0.7); EOS % 9 % (0-3); HEMATOCRIT 33.5 % (36.0-47.0); HEMOGLOBIN 10.7 g/dL (12.0-15.5); LYMPH # 1.7 x10^3/uL (1.0-4.8); LYMPH % 37 % (24-48); MEAN CORPUSCULAR HEMOGLOBIN 27 pg (25-35); MEAN CORPUSCULAR HGB CONC 32 g/dL (31-37); MEAN CORPUSCULAR VOLUME 85 fL (79-100); MONO # 0.3 x10^3/uL (0.0-1.1); MONO % 8 % (0-9); NEUT # 2.1 x10^3uL (1.8-7.7); NEUT % 47 % (31-73); PLATELET COUNT 253 x10^3/uL (140-400); RED BLOOD COUNT 3.95 x10^6/uL (3.50-5.40); RED CELL DISTRIBUTION WIDTH 15.6 % (11.5-14.5); WHITE BLOOD COUNT 4.5 x10^3/uL (4.0-11.0)
[2017-11-30 07:26] LABS: ALBUMIN/GLOBULIN RATIO 0.8 (1.0-1.7); ALK PHOS 175 U/L (46-116); ALT (SGPT) 20 U/L (14-59); ANION GAP 3 (6-14); AST (SGOT) 14 U/L (15-37); BLOOD UREA NITROGEN 23 mg/dL (7-20); BUN/CREATININE RATIO 13 (6-20); CALCIUM 9.1 mg/dL (8.5-10.1); CARBON DIOXIDE 35 mmol/L (21-32); CHLORIDE 105 mmol/L (98-107); CREATININE 1.8 mg/dL (0.6-1.0); GLUCOSE 162 mg/dL (70-99); POTASSIUM 4.4 mmol/L (3.5-5.1); SODIUM 143 mmol/L (136-145); TOTAL BILIRUBIN 0.1 mg/dL (0.2-1.0); TOTAL PROTEIN 6.6 g/dL (6.4-8.2)
[2017-11-30 07:30] LABS: VAL ACID 41 mcg/mL (50-100)
[2017-11-30] MEDS: clonazePAM 0.5 MG TABLET PO SCH ×2 (07:56→20:58)
[2017-11-30] MEDS: ASPIRIN ENTERIC COATED 81 MG TABLET.DR. PO SCH (07:56)
[2017-11-30] MEDS: SIMETHICONE 80 MG TAB.CHEW PO SCH ×3 (07:57→20:41)
[2017-11-30] MEDS: LACTOBACILLUS RHAMNOSUS GG 1 CAPSULE. PO SCH ×2 (07:58→20:42)
[2017-11-30] MEDS: GEMFIBROZIL 600 MG TABLET. PO SCH ×2 (07:59→16:38)
[2017-11-30] MEDS: ARIPiprazole 15 MG TABLET PO SCH ×2 (07:59→20:42)
[2017-11-30] MEDS: FUROSEMIDE 40 MG TABLET PO SCH (07:59)
[2017-11-30] MEDS: POTASSIUM CHLORIDE 10 MEQ TABLET.ER. PO SCH (07:59)
[2017-11-30] MEDS: GABAPENTIN 300 MG CAPSULE. PO SCH ×2 (07:59→20:41)
[2017-11-30] MEDS: MAGNESIUM OXIDE 400 MG TABLET PO SCH (08:00)
[2017-11-30] MEDS: amLODIPine BESYLATE 10 MG TABLET PO SCH (08:00)
[2017-11-30] MEDS: LISINOPRIL 20 MG TABLET PO SCH (08:00)
[2017-11-30] MEDS: DOCUSATE SODIUM 100 MG CAPSULE PO SCH (08:01)
[2017-11-30] MEDS: MULTIVITAMIN with MINERAL TABLET. PO SCH (08:01)
[2017-11-30] MEDS: SENNOSIDES 8.6 MG TABLET PO SCH ×2 (08:01→20:41)
[2017-11-30] MEDS: FAMOTIDINE 20 MG TABLET PO SCH ×2 (08:01→20:41)
[2017-11-30] MEDS: CETIRIZINE HCL 10 MG TABLET PO SCH (08:02)
[2017-11-30] MEDS: PIOGLITAZONE 15 MG TABLET. PO SCH (08:02)
[2017-11-30] MEDS: INSULIN LISPRO 300 UNITS/3 ML INSULN.PEN. SQ SCH ×3 (08:04→16:41)
[2017-11-30] MEDS: INSULIN GLARGINE 300 UNITS/3 ML INSULN.PEN. SQ SCH ×2 (09:02→20:44)
[2017-11-30] MEDS: HALOPERIDOL 5 MG TABLET PO SCH ×2 (09:02→20:42)
[2017-11-30] MEDS: PHENYLEPHRINE/COCOA BUTTER RECTAL SUPP. PR PRN (09:03)
[2017-11-30] MEDS: POLYETHYLENE GLYCOL 3350 17 GM PACKET. PO SCH (09:06)
--- NOTE | 2017-11-30 09:17 | PN ---
DATE: 11/28/2017 PSYCHIATRIC PROGRESS NOTE This is a late entry of 11/28/2017, covers elements not covered in my initial note of 11/28/2017. I met with the patient evening of 11/28/2017. SUBJECTIVE: . REVIEW OF SYSTEMS: No CV, , pulmonary, eye system symptoms on review. MENTAL STATUS EXAM: Oriented to herself and situation. ____. Abstraction fair. Computation impaired. Language function intact. Attention span short. Mood and affect somewhat anxious, labile ____. LABORATORY DATA: Reviewed. IMPRESSION: Unchanged from initial note. PLAN: Continue psychotropics mentioned in my initial note. JASS HUNG MD DR: KATIANA/alicia JOB#: [id number] / [id number]
[2017-11-30] MEDS ORDERED: POLYETHYLENE GLYCOL 3350 17 GM PACKET. PO SCH (12:30)
[2017-11-30 16:21] VITALS: BP 171/66
[2017-11-30] MEDS: cloNIDine HCL 0.1 MG TABLET PO SCH (20:42)
[2017-11-30] MEDS: DIVALPROEX ER 500 MG TAB.ER.24H PO SCH (20:43)
--- NOTE | 2017-11-30 20:53 | PDOC ---
Exam Note: Tay Note: Please also refer to the separate dictated note~for this date of service dictated separately.~Patient seen individually. Discussed the patient with Nursing staff reviewed the chart.~Reviewed interim history and current functioning. Reviewed vital signs,~Labs/ Radiology~and current medications noted below. Continue current treatment with the changes noted in the dictated addendum note Assessment: Vital Signs: Vital Signs Date Time Temp Pulse Resp B/P (MAP) Pulse Ox O2 Delivery O2 Flow Rate FiO2 11/30/17 16:21 97.6 79 18 171/66 (101) 96 11/30/17 06:41 Room Air I&O Intake and Output 11/30/17 07:00 Intake Total 1440 ml Balance 1440 ml Intake Oral 1440 ml # Bowel Movements 1 Labs: Laboratory Tests Test 11/30/17 06:40 11/30/17 07:14 11/30/17 11:23 11/30/17 16:15 White Blood Count 4.5 x10^3/uL (4.0-11.0) Red Blood Count 3.95 x10^6/uL (3.50-5.40) Hemoglobin 10.7 g/dL (12.0-15.5) L Hematocrit 33.5 % (36.0-47.0) L Mean Corpuscular Volume 85 fL (79-100) Mean Corpuscular Hemoglobin 27 pg (25-35) Mean Corpuscular Hemoglobin Concent 32 g/dL (31-37) Red Cell Distribution Width 15.6 % (11.5-14.5) H Platelet Count 253 x10^3/uL (140-400) Neutrophils (%) (Auto) 47 % (31-73) Lymphocytes (%) (Auto) 37 % (24-48) Monocytes (%) (Auto) 8 % (0-9) Eosinophils (%) (Auto) 9 % (0-3) H Basophils (%) (Auto) 0 % (0-3) Neutrophils # (Auto) 2.1 x10^3uL (1.8-7.7) Lymphocytes # (Auto) 1.7 x10^3/uL (1.0-4.8) Monocytes # (Auto) 0.3 x10^3/uL (0.0-1.1) Eosinophils # (Auto) 0.4 x10^3/uL (0.0-0.7) Basophils # (Auto) 0.0 x10^3/uL (0.0-0.2) Sodium Level 143 mmol/L (136-145) Potassium Level 4.4 mmol/L (3.5-5.1) Chloride Level 105 mmol/L (98-107) Carbon Dioxide Level 35 mmol/L (21-32) H Anion Gap 3 (6-14) L Blood Urea Nitrogen 23 mg/dL (7-20) H Creatinine 1.8 mg/dL (0.6-1.0) H Estimated GFR (Cockcroft-Gault) 36.0 BUN/Creatinine Ratio 13 (6-20) Glucose Level 162 mg/dL (70-99) H Calcium Level 9.1 mg/dL (8.5-10.1) Total Bilirubin 0.1 mg/dL (0.2-1.0) L Aspartate Amino Transferase (AST) 14 U/L (15-37) L Alanine Aminotransferase (ALT) 20 U/L (14-59) Alkaline Phosphatase 175 U/L (46-116) H Total Protein 6.6 g/dL (6.4-8.2) Albumin 3.0 g/dL (3.4-5.0) L Albumin/Globulin Ratio 0.8 (1.0-1.7) L Valproic Acid Level 41 mcg/mL (50-100) L Valproic Acid Last Dose Date 11/29/17 Valproic Acid Last Dose Time 2100 Glucose (Fingerstick) 154 mg/dL (70-99) H 191 mg/dL (70-99) H 321 mg/dL (70-99) H Test 11/30/17 19:26 Glucose (Fingerstick) 230 mg/dL (70-99) H Current Medications: Meds: Current Medications Ciprofloxacin Lactate 200 ml @ 200 mls/hr 1X ONCE IV ; Start 11/23/17 at 16:30 ; Stop 11/23/17 at 16:31; Status DC Ciprofloxacin (Cipro) 500 mg 1X ONCE PO Last administered on 11/23/17at 16:45; Start 11/23/17 at 17:00; Stop 11/23/17 at 17:01; Status DC Acetaminophen (Tylenol) 650 mg PRN Q6HRS PRN PO PAIN / TEMP; Start 11/23/17 at 17:45; Status Cancel Multi-Ingredient Ointment (Analgesic [place]) 1 yong PRN QID PRN TP MUSCLE PAIN; Start 11/23/17 at 17:45 Al Hydroxide/Mg Hydroxide (Mylanta Plus Xs) 15 ml PRN AFTMEALHC PRN PO DYSPEPSIA; Start 11/23/17 at 17:45 Magnesium Hydroxide (Milk Of Magnesia) 2,400 mg PRN QHS PRN PO CONSTIPATION Last administered on 11/27/17 20:49; Start 11/23/17 at 17:45 Aripiprazole (Abilify) 15 mg BID PO Last administered on 11/30/17 07:59; Start 11/24/17 at 09:00 Clonazepam (KlonoPIN) 0.5 mg BID PO Last administered on 11/30/17 07:56; Start 11/24/17 at 09:00 Haloperidol Lactate (Haldol) 5 mg PRN Q4HRS PRN IM AGITATION; Start 11/23/17 at 22:15 Haloperidol (Haldol) 20 mg BID PO Last administered on 11/27/17 08:57; Start 11/24/17 at 09:00; Stop 11/27/17 at 18:23; Status DC Acetaminophen (Tylenol) 500 mg PRN Q6HRS PRN PO PAIN Last administered on at 11:38; Start 11/23/17 at 22:15 Amlodipine Besylate (Norvasc) 10 mg DAILY PO Last administered on 11/30/17 08: 00; Start 11/24/17 at 09:00 Aspirin (Aspirin Enteric Coated) 81 mg DAILY PO Last administered on 11/30/17 07:56; Start 11/24/17 at 09:00 Cetirizine HCl (ZyrTEC) 10 mg DAILY PO Last administered on 11/30/17 08:02; Start 11/24/17 at 09:00 Clonidine HCl (Catapres) 0.1 mg HS PO Last administered on 11/29/17 19:24; Start 11/24/17 at 21:00 Docusate Sodium (Colace) 100 mg DAILY PO Last administered on 11/30/17 08:01; Start 11/24/17 at 09:00 Docusate Sodium (Colace) 100 mg PRN DAILY PRN PO CONSTIPATION; Start 11/23/17 at 22:15 Erythromycin (E-Mycin) 250 mg TIDPC PO Last administered on 11/25/17 16:39; Start 11/24/17 at 08:30; Stop 11/25/17 at 18:49; Status DC Famotidine (Pepcid) 20 mg BID PO Last administered on 11/30/17 08:01; Start at 09:00 Furosemide (Lasix) 40 mg DAILY PO Last administered on 11/30/17 07:59; Start 11/24/17 at 09:00 Gabapentin (Neurontin) 300 mg BID PO Last administered on 11/30/17 07:59; Start 11/24/17 at 09:00 Gemfibrozil (Lopid) 600 mg BIDWMEALS PO Last administered on 11/30/17 16:38; Start 11/24/17 at 08:00 Glucagon (Glucagen Kit) 1 mg PRN 1X PRN SQ hypoglycemia; Start 11/23/17 at 22: 15 Insulin Human Lispro (HumaLOG) 4 units DAILYWBKFT SQ Last administered on 08:04; Start 11/24/17 at 08:00 Insulin Human Lispro (HumaLOG) 8 units DAILYBFRLUN SQ Last administered on 11/30 14:01; Start 11/24/17 at 11:30 Insulin Human Lispro (HumaLOG) 10 units DAILYBFRSUP SQ Last administered on 16:41; Start 11/24/17 at 17:00 Insulin Glargine (Lantus) 16 units HS SQ Last administered on 11/29/17at 21:57; Start 11/23/17 at 23:00 Insulin Glargine (Lantus) 26 units DAILYWBKFT SQ Last administered on 09:02; Start 11/24/17 at 08:00 Lisinopril (Prinivil) 20 mg DAILY PO Last administered on 11/30/17 08:00; Start 11/24/17 at 09:00 Magnesium Oxide (Magnesium Oxide) 400 mg DAILY PO Last administered on 08:00; Start 11/24/17 at 09:00 Sennosides (Senna) 8.6 mg BID PO Last administered on 11/30/17 08:01; Start at 09:00 Tramadol HCl (Ultram) 50 mg PRN Q6HRS PRN PO PAIN Last administered on 23:34; Start 11/23/17 at 22:15 Fluticasone Propionate (Flonase) 2 spray PRN DAILY PRN NS ALLERGIES Last administered on 11/25/17 00:29; Start 11/24/17 at 09:00 Non-Formulary Medication (Gly/Dimeth/ Petrolat,Wht/ Water (Moisturizing Cream)) 1 yong PRN PRN TP skin protectant; Start 11/23/17 at 22:15; Status UNV Non-Formulary Medication (Mag Hydrox/Al Hydrox/Simeth (Mintox Suspension)) 15 ml PRN BID PRN PO gerd; Start 11/23/17 at 22:15; Status UNV Non-Formulary Medication (Magnesium Hydroxide (Milk Of Magnesia)) 2,400 mg PRN DAILY PRN PO CONSTIPATION; Start 11/23/17 at 22:15; Status UNV Multivitamins/ Calcium (Thera-M Plus) 1 tab DAILY PO Last administered on 08:01; Start 11/24/17 at 09:00 Pioglitazone HCl (Actos) 30 mg DAILY PO Last administered on 11/30/17 08:02; Start 11/24/17 at 09:00 Potassium Chloride (Klor-Con) 10 meq DAILY PO Last administered on 11/30/17 07 :59; Start 11/24/17 at 09:00 Simethicone (Gas-X) 120 mg TID PO Last administered on 11/30/17 14:02; Start 11/24/17 at 09:00 Divalproex Sodium (Depakote Er) 500 mg HS PO Last administered on 11/26/17 19: 33; Start 11/24/17 at 21:00; Stop 11/27/17 at 18:23; Status DC Phenylephrine/ Shark Liver Oil (Preparation H) 1 supp PRN Q8HRS PRN [place] RECTAL PAIN Last administered on 11/30/17 09:03; Start 11/24/17 at 19:00 Lactobacillus Rhamnosus (Culturelle) 1 cap BID PO Last administered on at 07:58; Start 11/25/17 at 21:00 Fluvoxamine Maleate (Luvox) 25 mg HS PO Last administered on 11/29/17at 19:22; Start 11/25/17 at 21:00 Olanzapine (ZyPREXA ZYDIS) 2.5 mg PRN Q2HR PRN PO PSYCHOSIS; Start 11/25/17 at 18:15 Cyanocobalamin (Vitamin B-12) 1,000 mcg QMONTH IM ; Start 11/26/17 at 09:00; Stop 11/26/17 at 09:00; Status DC Divalproex Sodium (Depakote Er) 1,000 mg HS PO Last administered on 11/29/17at 19:22; Start 11/27/17 at 21:00; Stop 11/30/17 at 18:31; Status DC Haloperidol (Haldol) 20 mg DAILY PO Last administered on 11/30/17at 09:02; Start 11/28/17 at 09:00 Haloperidol (Haldol) 15 mg HS PO Last administered on 11/29/17at 19:24; Start at 21:00 Polyethylene Glycol (miraLAX) 17 gm DAILY PO ; Start 11/30/17 at 12:30; Stop at 12:30; Status DC Polyethylene Glycol (miraLAX) 17 gm DAILY PO Last administered on 11/30/17at 09: 06; Start 11/30/17 at 09:00 Divalproex Sodium (Depakote Er) 1,500 mg HS PO ; Start 11/30/17 at 21:00 Active Scripts Active Reported Tramadol Hcl (Tramadol HCl) 50 Mg Tablet 50 Mg PO PRN Q6HRS PRN Multi Vitamin Daily (Multivitamin) 1 Each Tablet 1 Tab PO DAILY Simethicone 125 Mg Capsule 125 Mg PO TID Senna Lax (Sennosides) 8.6 Mg Tablet 8.6 Mg PO BID Potassium Chloride 10 Meq Tablet.er 10 Meq PO DAILY Actos (Pioglitazone Hcl) 30 Mg Tablet 30 Mg PO DAILY Pepcid (Famotidine) 20 Mg Tablet 20 Mg PO BID Novolog Flexpen (Insulin Aspart) 100 Unit/1 Ml Insuln.pen 8 Units SQ DAILYBFRLUN Novolog Flexpen (Insulin Aspart) 100 Unit/1 Ml Insuln.pen 4 Units SQ DAILYWBKFT Novolog Flexpen (Insulin Aspart) 100 Unit/1 Ml Insuln.pen 10 Unit SQ DAILYBFRSUP Moisturizing Cream (Gly/Dimeth/Petrolat,Wht/Water) 453 Gm Cream..g. 1 Yong TP PRN PRN Mintox Suspension (Mag Hydrox/Al Hydrox/Simeth) 355 Ml Oral.susp 15 Ml PO PRN BID PRN Milk Of Magnesia (Magnesium Hydroxide) 2,400 Mg/10 Ml Oral.susp 2,400 Mg PO PRN DAILY PRN Mapap (Acetaminophen) 500 Mg Tablet 500 Mg PO PRN Q6HRS PRN Magnesium Oxide 400 Mg Tablet 500 Mg PO DAILY Lisinopril 20 Mg Tablet 20 Mg PO DAILY Lipitor (Atorvastatin Calcium) 10 Mg Tablet 10 Mg PO QHS Levemir Flextouch (Insulin Detemir) 100 Unit/1 Ml Insuln.pen 26 Units SQ DAILYWBKFT Levemir Flextouch (Insulin Detemir) 100 Unit/1 Ml Insuln.pen 16 Units SQ HS Lasix (Furosemide) 40 Mg Tablet 40 Mg PO DAILY Haloperidol 10 Mg Tablet 20 Mg PO BID Haloperidol Lactate 5 Mg/1 Ml Vial 5 Mg IJ PRN Q4HRS PRN Glucagen (Glucagon,Human Recombinant) 1 Mg/1 Ml Vial 1 Mg IJ PRN PRN Gemfibrozil 600 Mg Tablet 600 Mg PO BID Gabapentin 300 Mg Capsule 300 Mg PO BID Flonase Allergy Relief (Fluticasone Propionate) 9.9 Ml [place].susp 2 Sprays NS PRN PRN Erythromycin (Erythromycin Base) 250 Mg Tablet 250 Mg PO TIDPC Docusate Sodium 100 Mg Capsule 100 Mg PO DAILY Docusate Sodium 100 Mg Capsule 100 Mg PO PRN DAILY PRN Clonidine Hcl 0.1 Mg Tablet 0.1 Mg PO HS Clonazepam 0.5 Mg Tablet 0.5 Mg PO BID Cetirizine Hcl 10 Mg Tablet 10 Mg PO DAILY Aspirin Ec (Aspirin) 81 Mg Tablet.dr 81 Mg PO DAILY Amlodipine Besylate 10 Mg Tablet 10 Mg PO DAILY Abilify (Aripiprazole) 15 Mg Tablet 15 Mg PO BID I have reviewed the current psychotropics carefully including drug interactions. Risk benefit ratio favors no change other than as noted in my dictated progress note. Diagnosis: Problems: (1) Peripheral neuropathy (2) UTI (urinary tract infection) (3) Skin tear (4) Acute adjustment disorder (5) Anxiety disorder (6) Bipolar affective, mixed, sev w/ psych (7) Schizoaffective disorder, chronic condition with acute exacerbation (8) Schizophrenia, disorganized, subchronic with acute exacerbation JASS HUNG MD Nov 30, 2017 20:53
[2017-12-01] MEDS: MAGNESIUM HYDROXIDE 2,400 MG/30 ML ORAL.SUSP. PO PRN (00:01)
[2017-12-01] MEDS: DOCUSATE SODIUM 100 MG CAPSULE PO SCH (00:01)
--- NOTE | 2017-12-01 04:11 | PN ---
DATE: 11/28/2017 This is a late entry for 11/28/2017, covers elements not covered in my initial note of 11/28/2017. This is a redictation requested by medical records. SUBJECTIVE: I met with the patient in the evening. The patient has been increasingly attention seeking, compliant with medications, obsessed about abdomen and GI symptoms. REVIEW OF SYSTEMS: No CV, , pulmonary, eye system symptoms on review. MENTAL STATUS EXAMINATION: I met with the patient individually, oriented to herself and situation. Speech has some latency, coherent. Abstraction fair. Computation impaired. Language function intact. Mood and affect somewhat withdrawn, still psychotic, but tolerating her current psychotropics. PLAN: Maintain psychotropics mentioned in my initial note. We are gradually reducing the Haldol. Depakote has been adjusted to reach a therapeutic level. MAN Prosper HUNG MD DR: KATIANA/alicia JOB#: [id number] / [id number]
--- NOTE | 2017-12-01 04:45 | PN ---
DATE: 11/29/2017 PSYCHIATRIC PROGRESS NOTE This is a late entry date of service 11/29/2017, covers elements not covered in my initial note of 11/29/2017. SUBJECTIVE: I met with the patient in the afternoon. This is a re-dictation requested by medical records. The patient slept 8-1/2 hours, less needy, less anxious, repeatedly stating that she is ____ with the staff giving her home medications, later corrected this. REVIEW OF SYSTEMS: No CV, , pulmonary, eye system symptoms on review. Has some somatic preoccupation with bowels. MENTAL STATUS EXAM: Oriented to herself and situation. Speech is coherent, abstraction fair, computation impaired, language function intact, attention span short. Mood and affect are somewhat withdrawn. LABORATORY DATA: Reviewed. IMPRESSION: Unchanged from initial note. PLAN: Continue current psychotropics. Adjust Depakote to reach a therapeutic level. JASS HUNG MD DR: KATIANA/alicia JOB#: [id number] / [id number]
[2017-12-01 06:28] VITALS: BP 130/73
[2017-12-01] MEDS: HALOPERIDOL 5 MG TABLET PO SCH ×2 (08:36→20:56)
[2017-12-01] MEDS: SIMETHICONE 80 MG TAB.CHEW PO SCH ×3 (08:37→20:55)
[2017-12-01] MEDS: POLYETHYLENE GLYCOL 3350 17 GM PACKET. PO SCH (08:37)
[2017-12-01] MEDS: LACTOBACILLUS RHAMNOSUS GG 1 CAPSULE. PO SCH ×2 (08:37→20:54)
[2017-12-01] MEDS: GEMFIBROZIL 600 MG TABLET. PO SCH ×2 (08:37→16:47)
[2017-12-01] MEDS: ARIPiprazole 15 MG TABLET PO SCH ×2 (08:37→20:55)
[2017-12-01] MEDS: SENNOSIDES 8.6 MG TABLET PO SCH ×2 (08:37→20:56)
[2017-12-01] MEDS: MAGNESIUM OXIDE 400 MG TABLET PO SCH (08:38)
[2017-12-01] MEDS: MULTIVITAMIN with MINERAL TABLET. PO SCH (08:38)
[2017-12-01] MEDS: GABAPENTIN 300 MG CAPSULE. PO SCH ×2 (08:38→20:54)
[2017-12-01] MEDS: clonazePAM 0.5 MG TABLET PO SCH ×2 (08:38→20:59)
[2017-12-01] MEDS: PIOGLITAZONE 15 MG TABLET. PO SCH (08:38)
[2017-12-01] MEDS: ASPIRIN ENTERIC COATED 81 MG TABLET.DR. PO SCH (08:38)
[2017-12-01] MEDS: CETIRIZINE HCL 10 MG TABLET PO SCH (08:39)
[2017-12-01] MEDS: POTASSIUM CHLORIDE 10 MEQ TABLET.ER. PO SCH (08:39)
[2017-12-01] MEDS: FUROSEMIDE 40 MG TABLET PO SCH (08:39)
[2017-12-01] MEDS: FAMOTIDINE 20 MG TABLET PO SCH ×2 (08:39→20:54)
[2017-12-01] MEDS: amLODIPine BESYLATE 10 MG TABLET PO SCH (08:40)
[2017-12-01] MEDS: LISINOPRIL 20 MG TABLET PO SCH (08:40)
[2017-12-01] MEDS: INSULIN GLARGINE 300 UNITS/3 ML INSULN.PEN. SQ SCH ×2 (08:44→21:02)
[2017-12-01] MEDS: INSULIN LISPRO 300 UNITS/3 ML INSULN.PEN. SQ SCH ×3 (08:46→16:49)
--- NOTE | 2017-12-01 11:06 | PN ---
DATE: 11/27/2017 PSYCHIATRIC PROGRESS NOTE This is a late entry 11/27/2017, covers elements not covered in my initial note 11/27/2017. SUBJECTIVE: I met with the patient the evening of 11/27/2017. This note is being redictated as requested by health information office. The patient slept 9 hours previous evening, somewhat dramatic in her presentation, had a tear on her face, but certainly did not appear depressed, attention seeking at times. She is somewhat sedated previous evening. Complains of her abdominal distensions. CT abdomen shows chronic constipation. We will defer to Dr. Bishop. REVIEW OF SYSTEMS: Other than this No CV, , pulmonary, eye system symptoms on review. MENTAL STATUS EXAMINATION: I met with her in her room, reasonably oriented. Speech coherent, abstraction fair, computation impaired, language function intact. Mood and affect less labile, but somewhat dramatic at times. LABORATORY DATA: Reviewed. Valproic acid level is 22. IMPRESSION: Unchanged from initial note. PLAN: Increase Depakote ER to 1000 mg p.o. at bedtime. Check CBC, CMP, valproic acid level in 3 days. Reduce Haldol from 20 mg b.i.d. to total of 35 mg a day, that is unchanged. JASS HUNG MD DR: KATIANA/alicia JOB#: [id number] / [id number]
--- NOTE | 2017-12-01 20:51 | PDOC ---
Exam Note: Tay Note: Please also refer to the separate dictated note~for this date of service dictated separately.~Patient seen individually. Discussed the patient with Nursing staff reviewed the chart.~Reviewed interim history and current functioning. Reviewed vital signs,~Labs/ Radiology~and current medications noted below. Continue current treatment with the changes noted in the dictated addendum note Assessment: Vital Signs: Vital Signs Date Time Temp Pulse Resp B/P (MAP) Pulse Ox O2 Delivery O2 Flow Rate FiO2 12/01/17 08:40 98 130/73 12/01/17 06:28 97.3 16 95 11/30/17 06:41 Room Air I&O Intake and Output 12/01/17 07:00 Intake Total 1800 ml Balance 1800 ml Intake Oral 1800 ml Labs: Laboratory Tests Test 12/01/17 07:04 12/01/17 11:22 12/01/17 16:10 12/01/17 19:27 Glucose (Fingerstick) 168 mg/dL (70-99) H 262 mg/dL (70-99) H 202 mg/dL (70-99) H 175 mg/dL (70-99) H Current Medications: Meds: Current Medications Ciprofloxacin Lactate 200 ml @ 200 mls/hr 1X ONCE IV ; Start 11/23/17 at 16:30 ; Stop 11/23/17 at 16:31; Status DC Ciprofloxacin (Cipro) 500 mg 1X ONCE PO Last administered on 11/23/17at 16:45; Start 11/23/17 at 17:00; Stop 11/23/17 at 17:01; Status DC Acetaminophen (Tylenol) 650 mg PRN Q6HRS PRN PO PAIN / TEMP; Start 11/23/17 at 17:45; Status Cancel Multi-Ingredient Ointment (Analgesic [place]) 1 yong PRN QID PRN TP MUSCLE PAIN; Start 11/23/17 at 17:45 Al Hydroxide/Mg Hydroxide (Mylanta Plus Xs) 15 ml PRN AFTMEALHC PRN PO DYSPEPSIA; Start 11/23/17 at 17:45 Magnesium Hydroxide (Milk Of Magnesia) 2,400 mg PRN QHS PRN PO CONSTIPATION Last administered on 12/01/17at 00:01; Start 11/23/17 at 17:45 Aripiprazole (Abilify) 15 mg BID PO Last administered on 12/01/17 08:37; Start 11/24/17 at 09:00 Clonazepam (KlonoPIN) 0.5 mg BID PO Last administered on 12/01/17 08:38; Start 11/24/17 at 09:00 Haloperidol Lactate (Haldol) 5 mg PRN Q4HRS PRN IM AGITATION; Start 11/23/17 at 22:15 Haloperidol (Haldol) 20 mg BID PO Last administered on 11/27/17 08:57; Start 11/24/17 at 09:00; Stop 11/27/17 at 18:23; Status DC Acetaminophen (Tylenol) 500 mg PRN Q6HRS PRN PO PAIN Last administered on 11:38; Start 11/23/17 at 22:15 Amlodipine Besylate (Norvasc) 10 mg DAILY PO Last administered on 12/01/17 08: 40; Start 11/24/17 at 09:00 Aspirin (Aspirin Enteric Coated) 81 mg DAILY PO Last administered on 12/01/17 08:38; Start 11/24/17 at 09:00 Cetirizine HCl (ZyrTEC) 10 mg DAILY PO Last administered on 12/01/17 08:39; Start 11/24/17 at 09:00 Clonidine HCl (Catapres) 0.1 mg HS PO Last administered on 11/30/17 20:42; Start 11/24/17 at 21:00 Docusate Sodium (Colace) 100 mg DAILY PO Last administered on 12/01/17 00:01; Start 11/24/17 at 09:00 Docusate Sodium (Colace) 100 mg PRN DAILY PRN PO CONSTIPATION; Start 11/23/17 at 22:15 Erythromycin (E-Mycin) 250 mg TIDPC PO Last administered on 11/25/17 16:39; Start 11/24/17 at 08:30; Stop 11/25/17 at 18:49; Status DC Famotidine (Pepcid) 20 mg BID PO Last administered on 12/01/17 08:39; Start at 09:00 Furosemide (Lasix) 40 mg DAILY PO Last administered on 12/01/17 08:39; Start 11/24/17 at 09:00 Gabapentin (Neurontin) 300 mg BID PO Last administered on 12/01/17 08:38; Start 11/24/17 at 09:00 Gemfibrozil (Lopid) 600 mg BIDWMEALS PO Last administered on 12/01/17 16:47; Start 11/24/17 at 08:00 Glucagon (Glucagen Kit) 1 mg PRN 1X PRN SQ hypoglycemia; Start 11/23/17 at 22: 15 Insulin Human Lispro (HumaLOG) 4 units DAILYWBKFT SQ Last administered on 08:46; Start 11/24/17 at 08:00 Insulin Human Lispro (HumaLOG) 8 units DAILYBFRLUN SQ Last administered on 12/01 12:15; Start 11/24/17 at 11:30 Insulin Human Lispro (HumaLOG) 10 units DAILYBFRSUP SQ Last administered on 16:49; Start 11/24/17 at 17:00 Insulin Glargine (Lantus) 16 units HS SQ Last administered on 11/30/17 20:44; Start 11/23/17 at 23:00 Insulin Glargine (Lantus) 26 units DAILYWBKFT SQ Last administered on 08:44; Start 11/24/17 at 08:00 Lisinopril (Prinivil) 20 mg DAILY PO Last administered on 12/01/17 08:40; Start 11/24/17 at 09:00 Magnesium Oxide (Magnesium Oxide) 400 mg DAILY PO Last administered on 08:38; Start 11/24/17 at 09:00 Sennosides (Senna) 8.6 mg BID PO Last administered on 12/01/17 08:37; Start at 09:00 Tramadol HCl (Ultram) 50 mg PRN Q6HRS PRN PO PAIN Last administered on 23:34; Start 11/23/17 at 22:15 Fluticasone Propionate (Flonase) 2 spray PRN DAILY PRN NS ALLERGIES Last administered on 11/25/17 00:29; Start 11/24/17 at 09:00 Non-Formulary Medication (Gly/Dimeth/ Petrolat,Wht/ Water (Moisturizing Cream)) 1 yong PRN PRN TP skin protectant; Start 11/23/17 at 22:15; Status UNV Non-Formulary Medication (Mag Hydrox/Al Hydrox/Simeth (Mintox Suspension)) 15 ml PRN BID PRN PO gerd; Start 11/23/17 at 22:15; Status UNV Non-Formulary Medication (Magnesium Hydroxide (Milk Of Magnesia)) 2,400 mg PRN DAILY PRN PO CONSTIPATION; Start 11/23/17 at 22:15; Status UNV Multivitamins/ Calcium (Thera-M Plus) 1 tab DAILY PO Last administered on 08:38; Start 11/24/17 at 09:00 Pioglitazone HCl (Actos) 30 mg DAILY PO Last administered on 12/01/17 08:38; Start 11/24/17 at 09:00 Potassium Chloride (Klor-Con) 10 meq DAILY PO Last administered on 12/01/17 08 :39; Start 11/24/17 at 09:00 Simethicone (Gas-X) 120 mg TID PO Last administered on 12/01/17 14:12; Start 11/24/17 at 09:00 Divalproex Sodium (Depakote Er) 500 mg HS PO Last administered on 11/26/17 19: 33; Start 11/24/17 at 21:00; Stop 11/27/17 at 18:23; Status DC Phenylephrine/ Shark Liver Oil (Preparation H) 1 supp PRN Q8HRS PRN [place] RECTAL PAIN Last administered on 11/30/17 09:03; Start 11/24/17 at 19:00 Lactobacillus Rhamnosus (Culturelle) 1 cap BID PO Last administered on 08:37; Start 11/25/17 at 21:00 Fluvoxamine Maleate (Luvox) 25 mg HS PO Last administered on 11/30/17 20:42; Start 11/25/17 at 21:00 Olanzapine (ZyPREXA ZYDIS) 2.5 mg PRN Q2HR PRN PO PSYCHOSIS; Start 11/25/17 at 18:15 Cyanocobalamin (Vitamin B-12) 1,000 mcg QMONTH IM ; Start 11/26/17 at 09:00; Stop 11/26/17 at 09:00; Status DC Divalproex Sodium (Depakote Er) 1,000 mg HS PO Last administered on 11/29/17at 19:22; Start 11/27/17 at 21:00; Stop 11/30/17 at 18:31; Status DC Haloperidol (Haldol) 20 mg DAILY PO Last administered on 12/01/17at 08:36; Start 11/28/17 at 09:00 Haloperidol (Haldol) 15 mg HS PO Last administered on 11/30/17at 20:42; Start at 21:00 Polyethylene Glycol (miraLAX) 17 gm DAILY PO ; Start 11/30/17 at 12:30; Stop at 12:30; Status DC Polyethylene Glycol (miraLAX) 17 gm DAILY PO Last administered on 12/01/17at 08: 37; Start 11/30/17 at 09:00 Divalproex Sodium (Depakote Er) 1,500 mg HS PO Last administered on 11/30/17at 20:43; Start 11/30/17 at 21:00 Active Scripts Active Reported Tramadol Hcl (Tramadol HCl) 50 Mg Tablet 50 Mg PO PRN Q6HRS PRN Multi Vitamin Daily (Multivitamin) 1 Each Tablet 1 Tab PO DAILY Simethicone 125 Mg Capsule 125 Mg PO TID Senna Lax (Sennosides) 8.6 Mg Tablet 8.6 Mg PO BID Potassium Chloride 10 Meq Tablet.er 10 Meq PO DAILY Actos (Pioglitazone Hcl) 30 Mg Tablet 30 Mg PO DAILY Pepcid (Famotidine) 20 Mg Tablet 20 Mg PO BID Novolog Flexpen (Insulin Aspart) 100 Unit/1 Ml Insuln.pen 8 Units SQ DAILYBFRLUN Novolog Flexpen (Insulin Aspart) 100 Unit/1 Ml Insuln.pen 4 Units SQ DAILYWBKFT Novolog Flexpen (Insulin Aspart) 100 Unit/1 Ml Insuln.pen 10 Unit SQ DAILYBFRSUP Moisturizing Cream (Gly/Dimeth/Petrolat,Wht/Water) 453 Gm Cream..g. 1 Yong TP PRN PRN Mintox Suspension (Mag Hydrox/Al Hydrox/Simeth) 355 Ml Oral.susp 15 Ml PO PRN BID PRN Milk Of Magnesia (Magnesium Hydroxide) 2,400 Mg/10 Ml Oral.susp 2,400 Mg PO PRN DAILY PRN Mapap (Acetaminophen) 500 Mg Tablet 500 Mg PO PRN Q6HRS PRN Magnesium Oxide 400 Mg Tablet 500 Mg PO DAILY Lisinopril 20 Mg Tablet 20 Mg PO DAILY Lipitor (Atorvastatin Calcium) 10 Mg Tablet 10 Mg PO QHS Levemir Flextouch (Insulin Detemir) 100 Unit/1 Ml Insuln.pen 26 Units SQ DAILYWBKFT Levemir Flextouch (Insulin Detemir) 100 Unit/1 Ml Insuln.pen 16 Units SQ HS Lasix (Furosemide) 40 Mg Tablet 40 Mg PO DAILY Haloperidol 10 Mg Tablet 20 Mg PO BID Haloperidol Lactate 5 Mg/1 Ml Vial 5 Mg IJ PRN Q4HRS PRN Glucagen (Glucagon,Human Recombinant) 1 Mg/1 Ml Vial 1 Mg IJ PRN PRN Gemfibrozil 600 Mg Tablet 600 Mg PO BID Gabapentin 300 Mg Capsule 300 Mg PO BID Flonase Allergy Relief (Fluticasone Propionate) 9.9 Ml [place].susp 2 Sprays NS PRN PRN Erythromycin (Erythromycin Base) 250 Mg Tablet 250 Mg PO TIDPC Docusate Sodium 100 Mg Capsule 100 Mg PO DAILY Docusate Sodium 100 Mg Capsule 100 Mg PO PRN DAILY PRN Clonidine Hcl 0.1 Mg Tablet 0.1 Mg PO HS Clonazepam 0.5 Mg Tablet 0.5 Mg PO BID Cetirizine Hcl 10 Mg Tablet 10 Mg PO DAILY Aspirin Ec (Aspirin) 81 Mg Tablet.dr 81 Mg PO DAILY Amlodipine Besylate 10 Mg Tablet 10 Mg PO DAILY Abilify (Aripiprazole) 15 Mg Tablet 15 Mg PO BID I have reviewed the current psychotropics carefully including drug interactions. Risk benefit ratio favors no change other than as noted in my dictated progress note. Diagnosis: Problems: (1) Skin tear (2) Acute adjustment disorder (3) Anxiety disorder (4) Bipolar affective, mixed, sev w/ psych (5) Schizoaffective disorder, chronic condition with acute exacerbation (6) Schizophrenia, disorganized, subchronic with acute exacerbation JASS HUNG MD Dec 01, 2017 20:51
[2017-12-01] MEDS: cloNIDine HCL 0.1 MG TABLET PO SCH (20:55)
[2017-12-01] MEDS: DIVALPROEX ER 500 MG TAB.ER.24H PO SCH (20:56)
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
[2017-12-02 06:32] VITALS: BP 126/89
[2017-12-02] MEDS: GABAPENTIN 300 MG CAPSULE. PO SCH ×2 (09:14→19:23)
[2017-12-02] MEDS: ARIPiprazole 15 MG TABLET PO SCH ×2 (09:14→19:23)
[2017-12-02] MEDS: PIOGLITAZONE 15 MG TABLET. PO SCH (09:14)
[2017-12-02] MEDS: HALOPERIDOL 5 MG TABLET PO SCH ×2 (09:14→19:21)
[2017-12-02] MEDS: LISINOPRIL 20 MG TABLET PO SCH (09:14)
[2017-12-02] MEDS: amLODIPine BESYLATE 10 MG TABLET PO SCH (09:14)
[2017-12-02] MEDS: POTASSIUM CHLORIDE 10 MEQ TABLET.ER. PO SCH (09:15)
[2017-12-02] MEDS: ASPIRIN ENTERIC COATED 81 MG TABLET.DR. PO SCH (09:15)
[2017-12-02] MEDS: GEMFIBROZIL 600 MG TABLET. PO SCH ×2 (09:15→17:23)
[2017-12-02] MEDS: SIMETHICONE 80 MG TAB.CHEW PO SCH ×3 (09:15→19:22)
[2017-12-02] MEDS: LACTOBACILLUS RHAMNOSUS GG 1 CAPSULE. PO SCH ×2 (09:15→19:23)
[2017-12-02] MEDS: FUROSEMIDE 40 MG TABLET PO SCH (09:16)
[2017-12-02] MEDS: MULTIVITAMIN with MINERAL TABLET. PO SCH (09:16)
[2017-12-02] MEDS: MAGNESIUM OXIDE 400 MG TABLET PO SCH (09:16)
[2017-12-02] MEDS: DOCUSATE SODIUM 100 MG CAPSULE PO SCH (09:16)
[2017-12-02] MEDS: FAMOTIDINE 20 MG TABLET PO SCH ×2 (09:16→19:24)
[2017-12-02] MEDS: POLYETHYLENE GLYCOL 3350 17 GM PACKET. PO SCH (09:16)
[2017-12-02] MEDS: SENNOSIDES 8.6 MG TABLET PO SCH ×2 (09:22→19:24)
[2017-12-02] MEDS: CETIRIZINE HCL 10 MG TABLET PO SCH (09:22)
[2017-12-02] MEDS: clonazePAM 0.5 MG TABLET PO SCH ×2 (09:22→19:57)
[2017-12-02] MEDS: INSULIN GLARGINE 300 UNITS/3 ML INSULN.PEN. SQ SCH ×2 (09:24→19:58)
[2017-12-02] MEDS: INSULIN LISPRO 300 UNITS/3 ML INSULN.PEN. SQ SCH ×3 (09:24→17:24)
[2017-12-02 15:52] VITALS: BP 142/66
[2017-12-02] MEDS: MAGNESIUM HYDROXIDE 2,400 MG/30 ML ORAL.SUSP. PO PRN (17:21)
[2017-12-02] MEDS: DIVALPROEX ER 500 MG TAB.ER.24H PO SCH (19:23)
[2017-12-02] MEDS: cloNIDine HCL 0.1 MG TABLET PO SCH (19:23)
--- NOTE | 2017-12-02 20:31 | PDOC ---
Exam Note: Tay Note: Please also refer to the separate dictated note~for this date of service dictated separately.~Patient seen individually. Discussed the patient with Nursing staff reviewed the chart.~Reviewed interim history and current functioning. Reviewed vital signs,~Labs/ Radiology~and current medications noted below. Continue current treatment with the changes noted in the dictated addendum note Assessment: Vital Signs: Vital Signs Date Time Temp Pulse Resp B/P (MAP) Pulse Ox O2 Delivery O2 Flow Rate FiO2 12/02/17 19:23 82 142/66 12/02/17 15:52 97.1 18 98 11/30/17 06:41 Room Air I&O Intake and Output 12/02/17 07:00 Intake Total 1560 ml Balance 1560 ml Intake Oral 1560 ml Labs: Laboratory Tests Test 12/02/17 07:45 12/02/17 11:43 12/02/17 16:58 Glucose (Fingerstick) 89 mg/dL (70-99) 213 mg/dL (70-99) H 248 mg/dL (70-99) H Current Medications: Meds: Current Medications Ciprofloxacin Lactate 200 ml @ 200 mls/hr 1X ONCE IV ; Start 11/23/17 at 16:30 ; Stop 11/23/17 at 16:31; Status DC Ciprofloxacin (Cipro) 500 mg 1X ONCE PO Last administered on 11/23/17at 16:45; Start 11/23/17 at 17:00; Stop 11/23/17 at 17:01; Status DC Acetaminophen (Tylenol) 650 mg PRN Q6HRS PRN PO PAIN / TEMP; Start 11/23/17 at 17:45; Status Cancel Multi-Ingredient Ointment (Analgesic [place]) 1 yong PRN QID PRN TP MUSCLE PAIN; Start 11/23/17 at 17:45 Al Hydroxide/Mg Hydroxide (Mylanta Plus Xs) 15 ml PRN AFTMEALHC PRN PO DYSPEPSIA; Start 11/23/17 at 17:45 Magnesium Hydroxide (Milk Of Magnesia) 2,400 mg PRN QHS PRN PO CONSTIPATION Last administered on 12/02/17at 17:21; Start 11/23/17 at 17:45 Aripiprazole (Abilify) 15 mg BID PO Last administered on 12/02/17at 19:23; Start 11/24/17 at 09:00 Clonazepam (KlonoPIN) 0.5 mg BID PO Last administered on 12/02/17 19:57; Start 11/24/17 at 09:00 Haloperidol Lactate (Haldol) 5 mg PRN Q4HRS PRN IM AGITATION; Start 11/23/17 at 22:15 Haloperidol (Haldol) 20 mg BID PO Last administered on 11/27/17 08:57; Start 11/24/17 at 09:00; Stop 11/27/17 at 18:23; Status DC Acetaminophen (Tylenol) 500 mg PRN Q6HRS PRN PO PAIN Last administered on 11:38; Start 11/23/17 at 22:15 Amlodipine Besylate (Norvasc) 10 mg DAILY PO Last administered on 12/02/17 09: 14; Start 11/24/17 at 09:00 Aspirin (Aspirin Enteric Coated) 81 mg DAILY PO Last administered on 12/02/17 09:15; Start 11/24/17 at 09:00 Cetirizine HCl (ZyrTEC) 10 mg DAILY PO Last administered on 12/02/17 09:22; Start 11/24/17 at 09:00 Clonidine HCl (Catapres) 0.1 mg HS PO Last administered on 12/02/17 19:23; Start 11/24/17 at 21:00 Docusate Sodium (Colace) 100 mg DAILY PO Last administered on 12/02/17 09:16; Start 11/24/17 at 09:00 Docusate Sodium (Colace) 100 mg PRN DAILY PRN PO CONSTIPATION; Start 11/23/17 at 22:15 Erythromycin (E-Mycin) 250 mg TIDPC PO Last administered on 11/25/17 16:39; Start 11/24/17 at 08:30; Stop 11/25/17 at 18:49; Status DC Famotidine (Pepcid) 20 mg BID PO Last administered on 12/02/17 19:24; Start at 09:00 Furosemide (Lasix) 40 mg DAILY PO Last administered on 12/02/17 09:16; Start 11/24/17 at 09:00 Gabapentin (Neurontin) 300 mg BID PO Last administered on 4/25/18at 19:23; Start 11/24/17 at 09:00 Gemfibrozil (Lopid) 600 mg BIDWMEALS PO Last administered on 12/02/17 17:23; Start 11/24/17 at 08:00 Glucagon (Glucagen Kit) 1 mg PRN 1X PRN SQ hypoglycemia; Start 11/23/17 at 22: 15 Insulin Human Lispro (HumaLOG) 4 units DAILYWBKFT SQ Last administered on 09:24; Start 11/24/17 at 08:00 Insulin Human Lispro (HumaLOG) 8 units DAILYBFRLUN SQ Last administered on 12/02 11:53; Start 11/24/17 at 11:30 Insulin Human Lispro (HumaLOG) 10 units DAILYBFRSUP SQ Last administered on 17:24; Start 11/24/17 at 17:00 Insulin Glargine (Lantus) 16 units HS SQ Last administered on 12/02/17 19:58; Start 11/23/17 at 23:00 Insulin Glargine (Lantus) 26 units DAILYWBKFT SQ Last administered on 09:24; Start 11/24/17 at 08:00 Lisinopril (Prinivil) 20 mg DAILY PO Last administered on 12/02/17 09:14; Start 11/24/17 at 09:00 Magnesium Oxide (Magnesium Oxide) 400 mg DAILY PO Last administered on 09:16; Start 11/24/17 at 09:00 Sennosides (Senna) 8.6 mg BID PO Last administered on 12/02/17 19:24; Start at 09:00 Tramadol HCl (Ultram) 50 mg PRN Q6HRS PRN PO PAIN Last administered on 23:34; Start 11/23/17 at 22:15 Fluticasone Propionate (Flonase) 2 spray PRN DAILY PRN NS ALLERGIES Last administered on 11/25/17at 00:29; Start 11/24/17 at 09:00 Non-Formulary Medication (Gly/Dimeth/ Petrolat,Wht/ Water (Moisturizing Cream)) 1 yong PRN PRN TP skin protectant; Start 11/23/17 at 22:15; Status UNV Non-Formulary Medication (Mag Hydrox/Al Hydrox/Simeth (Mintox Suspension)) 15 ml PRN BID PRN PO gerd; Start 11/23/17 at 22:15; Status UNV Non-Formulary Medication (Magnesium Hydroxide (Milk Of Magnesia)) 2,400 mg PRN DAILY PRN PO CONSTIPATION; Start 11/23/17 at 22:15; Status UNV Multivitamins/ Calcium (Thera-M Plus) 1 tab DAILY PO Last administered on 09:16; Start 11/24/17 at 09:00 Pioglitazone HCl (Actos) 30 mg DAILY PO Last administered on 12/02/17 09:14; Start 11/24/17 at 09:00 Potassium Chloride (Klor-Con) 10 meq DAILY PO Last administered on 12/02/17 09 :15; Start 11/24/17 at 09:00 Simethicone (Gas-X) 120 mg TID PO Last administered on 12/02/17 19:22; Start 11/24/17 at 09:00 Divalproex Sodium (Depakote Er) 500 mg HS PO Last administered on 11/26/17 19: 33; Start 11/24/17 at 21:00; Stop 11/27/17 at 18:23; Status DC Phenylephrine/ Shark Liver Oil (Preparation H) 1 supp PRN Q8HRS PRN AL RECTAL PAIN Last administered on 11/30/17 09:03; Start 11/24/17 at 19:00 Lactobacillus Rhamnosus (Culturelle) 1 cap BID PO Last administered on 19:23; Start 11/25/17 at 21:00 Fluvoxamine Maleate (Luvox) 25 mg HS PO Last administered on 12/01/17 20:56; Start 11/25/17 at 21:00; Stop 12/02/17 at 18:28; Status DC Olanzapine (ZyPREXA ZYDIS) 2.5 mg PRN Q2HR PRN PO PSYCHOSIS; Start 11/25/17 at 18:15 Cyanocobalamin (Vitamin B-12) 1,000 mcg QMONTH IM ; Start 11/26/17 at 09:00; Stop 11/26/17 at 09:00; Status DC Divalproex Sodium (Depakote Er) 1,000 mg HS PO Last administered on 11/29/17 19:22; Start 11/27/17 at 21:00; Stop 11/30/17 at 18:31; Status DC Haloperidol (Haldol) 20 mg DAILY PO Last administered on 12/02/17 09:14; Start 11/28/17 at 09:00 Haloperidol (Haldol) 15 mg HS PO Last administered on 12/02/17at 19:21; Start at 21:00 Polyethylene Glycol (miraLAX) 17 gm DAILY PO ; Start 11/30/17 at 12:30; Stop at 12:30; Status DC Polyethylene Glycol (miraLAX) 17 gm DAILY PO Last administered on 12/02/17 09: 16; Start 11/30/17 at 09:00 Divalproex Sodium (Depakote Er) 1,500 mg HS PO Last administered on 12/02/17 19:23; Start 11/30/17 at 21:00 Fluvoxamine Maleate (Luvox) 50 mg HS PO Last administered on 12/02/17 19:24; Start 12/02/17 at 21:00 Active Scripts Active Reported Tramadol Hcl (Tramadol HCl) 50 Mg Tablet 50 Mg PO PRN Q6HRS PRN Multi Vitamin Daily (Multivitamin) 1 Each Tablet 1 Tab PO DAILY Simethicone 125 Mg Capsule 125 Mg PO TID Senna Lax (Sennosides) 8.6 Mg Tablet 8.6 Mg PO BID Potassium Chloride 10 Meq Tablet.er 10 Meq PO DAILY Actos (Pioglitazone Hcl) 30 Mg Tablet 30 Mg PO DAILY Pepcid (Famotidine) 20 Mg Tablet 20 Mg PO BID Novolog Flexpen (Insulin Aspart) 100 Unit/1 Ml Insuln.pen 8 Units SQ DAILYBFRLUN Novolog Flexpen (Insulin Aspart) 100 Unit/1 Ml Insuln.pen 4 Units SQ DAILYWBKFT Novolog Flexpen (Insulin Aspart) 100 Unit/1 Ml Insuln.pen 10 Unit SQ DAILYBFRSUP Moisturizing Cream (Gly/Dimeth/Petrolat,Wht/Water) 453 Gm Cream..g. 1 Yong TP PRN PRN Mintox Suspension (Mag Hydrox/Al Hydrox/Simeth) 355 Ml Oral.susp 15 Ml PO PRN BID PRN Milk Of Magnesia (Magnesium Hydroxide) 2,400 Mg/10 Ml Oral.susp 2,400 Mg PO PRN DAILY PRN Mapap (Acetaminophen) 500 Mg Tablet 500 Mg PO PRN Q6HRS PRN Magnesium Oxide 400 Mg Tablet 500 Mg PO DAILY Lisinopril 20 Mg Tablet 20 Mg PO DAILY Lipitor (Atorvastatin Calcium) 10 Mg Tablet 10 Mg PO QHS Levemir Flextouch (Insulin Detemir) 100 Unit/1 Ml Insuln.pen 26 Units SQ DAILYWBKFT Levemir Flextouch (Insulin Detemir) 100 Unit/1 Ml Insuln.pen 16 Units SQ HS Lasix (Furosemide) 40 Mg Tablet 40 Mg PO DAILY Haloperidol 10 Mg Tablet 20 Mg PO BID Haloperidol Lactate 5 Mg/1 Ml Vial 5 Mg IJ PRN Q4HRS PRN Glucagen (Glucagon,Human Recombinant) 1 Mg/1 Ml Vial 1 Mg IJ PRN PRN Gemfibrozil 600 Mg Tablet 600 Mg PO BID Gabapentin 300 Mg Capsule 300 Mg PO BID Flonase Allergy Relief (Fluticasone Propionate) 9.9 Ml [place].susp 2 Sprays NS PRN PRN Erythromycin (Erythromycin Base) 250 Mg Tablet 250 Mg PO TIDPC Docusate Sodium 100 Mg Capsule 100 Mg PO DAILY Docusate Sodium 100 Mg Capsule 100 Mg PO PRN DAILY PRN Clonidine Hcl 0.1 Mg Tablet 0.1 Mg PO HS Clonazepam 0.5 Mg Tablet 0.5 Mg PO BID Cetirizine Hcl 10 Mg Tablet 10 Mg PO DAILY Aspirin Ec (Aspirin) 81 Mg Tablet.dr 81 Mg PO DAILY Amlodipine Besylate 10 Mg Tablet 10 Mg PO DAILY Abilify (Aripiprazole) 15 Mg Tablet 15 Mg PO BID I have reviewed the current psychotropics carefully including drug interactions. Risk benefit ratio favors no change other than as noted in my dictated progress note. Diagnosis: Problems: (1) Skin tear (2) Acute adjustment disorder (3) Anxiety disorder (4) Bipolar affective, mixed, sev w/ psych (5) Schizoaffective disorder, chronic condition with acute exacerbation (6) Schizophrenia, disorganized, subchronic with acute exacerbation JASS HUNG MD Dec 02, 2017 20:31
--- NOTE | 2017-12-03 05:16 | PN ---
DATE: 12/01/2017 This late 12/01/2017 covers elements not covered in my initial note 12/01/2017. SUBJECTIVE: Met with the patient in the evening. Per nursing report, the patient slept 6-3/4 hours previous evening. She is less obsessive and anxious, but still back and forth to the nursing station wanting obsessively to call different people on the telephone. I met with her in her room to address this at length. REVIEW OF SYSTEMS: No CV, , pulmonary, eye, ENT system symptoms on review. MENTAL STATUS EXAM: Oriented to herself and situation. Speech is coherent, less pressured. Abstraction fair, computation impaired, language function intact, attention span short. Mood and affect somewhat labile, anxious at times, but improved. LABORATORY DATA: Reviewed. IMPRESSION: Schizoaffective disorder, bipolar type, mixed with psychotic features. Rest unchanged. PLAN: Continue current psychotropics. Haldol has been reduced and Depakote adjusted with repeat labs due. Once the Depakote is therapeutic, we will reduce Klonopin. JASS HUNG MD DR: KATIANA/alicia JOB#: [id number] / [id number]
[2017-12-03 06:21] VITALS: BP 111/59
--- NOTE | 2017-12-03 06:25 | PN ---
DATE: 11/29/2017 PSYCHIATRIC PROGRESS NOTE This note covers elements not covered in my initial note of 11/29/2017. SUBJECTIVE: Met with the patient in the afternoon. She is less anxious, less needy, per the nursing report. She is still delusional, psychotic state. States she believes she is and she should be given medications, slept 8-1/2 hours. REVIEW OF SYSTEMS: No CV, , pulmonary, eye system symptoms on review. Complains of some GI symptoms; however, Dr. Bishop is addressing this. MENTAL STATUS EXAM: Oriented to herself and situation. Speech is coherent, less pressured. Abstraction is fair, computation impaired, language function intact, attention span short. Mood and affect, lability, grandiosity is improved. LABORATORY DATA: Reviewed. IMPRESSION: Schizoaffective disorder, bipolar type, mixed with psychotic features, in partial remission. PLAN: Continue psychotropics mentioned in my initial note. MAN Prosper HUNG MD DR: KATIANA/alicia JOB#: [id number] / [id number]
[2017-12-03 07:38] LABS: BASO % 0 % (0-3); EOS # 0.3 x10^3/uL (0.0-0.7); EOS % 9 % (0-3); HEMATOCRIT 35.8 % (36.0-47.0); HEMOGLOBIN 11.4 g/dL (12.0-15.5); LYMPH # 1.7 x10^3/uL (1.0-4.8); LYMPH % 43 % (24-48); MEAN CORPUSCULAR HEMOGLOBIN 27 pg (25-35); MEAN CORPUSCULAR HGB CONC 32 g/dL (31-37); MEAN CORPUSCULAR VOLUME 84 fL (79-100); MONO # 0.3 x10^3/uL (0.0-1.1); MONO % 9 % (0-9); NEUT # 1.6 x10^3uL (1.8-7.7); NEUT % 40 % (31-73); PLATELET COUNT 271 x10^3/uL (140-400); RED BLOOD COUNT 4.25 x10^6/uL (3.50-5.40); RED CELL DISTRIBUTION WIDTH 15.8 % (11.5-14.5)
[2017-12-03 07:55] LABS: VAL ACID 51 mcg/mL (50-100)
[2017-12-03 07:57] LABS: ALBUMIN 3.1 g/dL (3.4-5.0); ALBUMIN/GLOBULIN RATIO 0.9 (1.0-1.7); CALCIUM 9.4 mg/dL (8.5-10.1); CREATININE 1.8 mg/dL (0.6-1.0); POTASSIUM 4.5 mmol/L (3.5-5.1); TOTAL BILIRUBIN 0.2 mg/dL (0.2-1.0); TOTAL PROTEIN 6.7 g/dL (6.4-8.2)
[2017-12-03] MEDS: INSULIN LISPRO 300 UNITS/3 ML INSULN.PEN. SQ SCH ×3 (08:06→17:37)
[2017-12-03] MEDS: FAMOTIDINE 20 MG TABLET PO SCH ×2 (08:07→20:47)
[2017-12-03] MEDS: CETIRIZINE HCL 10 MG TABLET PO SCH (08:07)
[2017-12-03] MEDS: GEMFIBROZIL 600 MG TABLET. PO SCH ×2 (08:08→17:37)
[2017-12-03] MEDS: HALOPERIDOL 5 MG TABLET PO SCH ×2 (08:08→20:49)
[2017-12-03] MEDS: FUROSEMIDE 40 MG TABLET PO SCH (08:08)
[2017-12-03] MEDS: MAGNESIUM OXIDE 400 MG TABLET PO SCH (08:08)
[2017-12-03] MEDS: DOCUSATE SODIUM 100 MG CAPSULE PO SCH (08:08)
[2017-12-03] MEDS: SIMETHICONE 80 MG TAB.CHEW PO SCH ×3 (08:08→20:49)
[2017-12-03] MEDS: LACTOBACILLUS RHAMNOSUS GG 1 CAPSULE. PO SCH ×2 (08:09→20:47)
[2017-12-03] MEDS: ARIPiprazole 15 MG TABLET PO SCH ×2 (08:09→20:49)
[2017-12-03] MEDS: MULTIVITAMIN with MINERAL TABLET. PO SCH (08:09)
[2017-12-03] MEDS: POTASSIUM CHLORIDE 10 MEQ TABLET.ER. PO SCH (08:09)
[2017-12-03] MEDS: amLODIPine BESYLATE 10 MG TABLET PO SCH (08:09)
[2017-12-03] MEDS: ASPIRIN ENTERIC COATED 81 MG TABLET.DR. PO SCH (08:09)
[2017-12-03] MEDS: PIOGLITAZONE 15 MG TABLET. PO SCH (08:10)
[2017-12-03] MEDS: LISINOPRIL 20 MG TABLET PO SCH (08:10)
[2017-12-03] MEDS: GABAPENTIN 300 MG CAPSULE. PO SCH ×2 (08:10→20:48)
[2017-12-03] MEDS: SENNOSIDES 8.6 MG TABLET PO SCH ×2 (08:10→20:48)
[2017-12-03] MEDS: POLYETHYLENE GLYCOL 3350 17 GM PACKET. PO SCH (08:10)
[2017-12-03] MEDS: clonazePAM 0.5 MG TABLET PO SCH ×2 (08:12→20:50)
[2017-12-03] MEDS: INSULIN GLARGINE 300 UNITS/3 ML INSULN.PEN. SQ SCH ×2 (08:12→20:52)
[2017-12-03] MEDS: traMADol 50 MG TABLET PO PRN ×2 (09:11→10:49)
[2017-12-03] MEDS: ACETAMINOPHEN 500 MG TABLET PO PRN (09:16)
[2017-12-03 16:35] VITALS: BP 121/62
[2017-12-03] MEDS: DIVALPROEX ER 500 MG TAB.ER.24H PO SCH (20:48)
[2017-12-03] MEDS: cloNIDine HCL 0.1 MG TABLET PO SCH (20:48)
--- NOTE | 2017-12-03 21:15 | PDOC ---
Exam Note: Tay Note: Please also refer to the separate dictated note~for this date of service dictated separately.~Patient seen individually. Discussed the patient with Nursing staff reviewed the chart.~Reviewed interim history and current functioning. Reviewed vital signs,~Labs/ Radiology~and current medications noted below. Continue current treatment with the changes noted in the dictated addendum note Assessment: Vital Signs: Vital Signs Date Time Temp Pulse Resp B/P (MAP) Pulse Ox O2 Delivery O2 Flow Rate FiO2 12/03/17 20:48 68 121/62 12/03/17 16:35 96.3 16 97 12/03/17 12:05 Room Air I&O Intake and Output 12/03/17 07:00 Intake Total 1320 ml Balance 1320 ml Intake Oral 1320 ml # Voids 1 # Bowel Movements 1 Labs: Laboratory Tests Test 12/03/17 07:22 12/03/17 07:24 12/03/17 11:57 12/03/17 16:39 White Blood Count 4.0 x10^3/uL (4.0-11.0) Red Blood Count 4.25 x10^6/uL (3.50-5.40) Hemoglobin 11.4 g/dL (12.0-15.5) L Hematocrit 35.8 % (36.0-47.0) L Mean Corpuscular Volume 84 fL (79-100) Mean Corpuscular Hemoglobin 27 pg (25-35) Mean Corpuscular Hemoglobin Concent 32 g/dL (31-37) Red Cell Distribution Width 15.8 % (11.5-14.5) H Platelet Count 271 x10^3/uL (140-400) Neutrophils (%) (Auto) 40 % (31-73) Lymphocytes (%) (Auto) 43 % (24-48) Monocytes (%) (Auto) 9 % (0-9) Eosinophils (%) (Auto) 9 % (0-3) H Basophils (%) (Auto) 0 % (0-3) Neutrophils # (Auto) 1.6 x10^3uL (1.8-7.7) L Lymphocytes # (Auto) 1.7 x10^3/uL (1.0-4.8) Monocytes # (Auto) 0.3 x10^3/uL (0.0-1.1) Eosinophils # (Auto) 0.3 x10^3/uL (0.0-0.7) Basophils # (Auto) 0.0 x10^3/uL (0.0-0.2) Sodium Level 142 mmol/L (136-145) Potassium Level 4.5 mmol/L (3.5-5.1) Chloride Level 104 mmol/L (98-107) Carbon Dioxide Level 36 mmol/L (21-32) H Anion Gap 2 (6-14) L Blood Urea Nitrogen 27 mg/dL (7-20) H Creatinine 1.8 mg/dL (0.6-1.0) H Estimated GFR (Cockcroft-Gault) 36.0 BUN/Creatinine Ratio 15 (6-20) Glucose Level 162 mg/dL (70-99) H Calcium Level 9.4 mg/dL (8.5-10.1) Total Bilirubin 0.2 mg/dL (0.2-1.0) Aspartate Amino Transferase (AST) 15 U/L (15-37) Alanine Aminotransferase (ALT) 21 U/L (14-59) Alkaline Phosphatase 153 U/L (46-116) H Total Protein 6.7 g/dL (6.4-8.2) Albumin 3.1 g/dL (3.4-5.0) L Albumin/Globulin Ratio 0.9 (1.0-1.7) L Valproic Acid Level 51 mcg/mL (50-100) Valproic Acid Last Dose Date 12/02/17 Valproic Acid Last Dose Time 2100 Glucose (Fingerstick) 154 mg/dL (70-99) H 300 mg/dL (70-99) H 146 mg/dL (70-99) H Test 12/03/17 19:25 Glucose (Fingerstick) 246 mg/dL (70-99) H Current Medications: Meds: Current Medications Ciprofloxacin Lactate 200 ml @ 200 mls/hr 1X ONCE IV ; Start 11/23/17 at 16:30 ; Stop 11/23/17 at 16:31; Status DC Ciprofloxacin (Cipro) 500 mg 1X ONCE PO Last administered on 11/23/17at 16:45; Start 11/23/17 at 17:00; Stop 11/23/17 at 17:01; Status DC Acetaminophen (Tylenol) 650 mg PRN Q6HRS PRN PO PAIN / TEMP; Start 11/23/17 at 17:45; Status Cancel Multi-Ingredient Ointment (Analgesic [place]) 1 yong PRN QID PRN TP MUSCLE PAIN; Start 11/23/17 at 17:45 Al Hydroxide/Mg Hydroxide (Mylanta Plus Xs) 15 ml PRN AFTMEALHC PRN PO DYSPEPSIA; Start 11/23/17 at 17:45 Magnesium Hydroxide (Milk Of Magnesia) 2,400 mg PRN QHS PRN PO CONSTIPATION Last administered on 12/02/17 17:21; Start 11/23/17 at 17:45 Aripiprazole (Abilify) 15 mg BID PO Last administered on 12/03/17 20:49; Start 11/24/17 at 09:00 Clonazepam (KlonoPIN) 0.5 mg BID PO Last administered on 12/03/17 20:50; Start 11/24/17 at 09:00 Haloperidol Lactate (Haldol) 5 mg PRN Q4HRS PRN IM AGITATION; Start 11/23/17 at 22:15 Haloperidol (Haldol) 20 mg BID PO Last administered on 11/27/17 08:57; Start 11/24/17 at 09:00; Stop 11/27/17 at 18:23; Status DC Acetaminophen (Tylenol) 500 mg PRN Q6HRS PRN PO PAIN Last administered on 09:16; Start 11/23/17 at 22:15 Amlodipine Besylate (Norvasc) 10 mg DAILY PO Last administered on 12/03/17 08: 09; Start 11/24/17 at 09:00 Aspirin (Aspirin Enteric Coated) 81 mg DAILY PO Last administered on 12/03/17 08:09; Start 11/24/17 at 09:00 Cetirizine HCl (ZyrTEC) 10 mg DAILY PO Last administered on 12/03/17 08:07; Start 11/24/17 at 09:00 Clonidine HCl (Catapres) 0.1 mg HS PO Last administered on 12/03/17at 20:48; Start 11/24/17 at 21:00 Docusate Sodium (Colace) 100 mg DAILY PO Last administered on 12/03/17 08:08; Start 11/24/17 at 09:00 Docusate Sodium (Colace) 100 mg PRN DAILY PRN PO CONSTIPATION; Start 11/23/17 at 22:15 Erythromycin (E-Mycin) 250 mg TIDPC PO Last administered on 11/25/17 16:39; Start 11/24/17 at 08:30; Stop 11/25/17 at 18:49; Status DC Famotidine (Pepcid) 20 mg BID PO Last administered on 12/03/17 20:47; Start at 09:00 Furosemide (Lasix) 40 mg DAILY PO Last administered on 12/03/17 08:08; Start 11/24/17 at 09:00 Gabapentin (Neurontin) 300 mg BID PO Last administered on 12/03/17 08:10; Start 11/24/17 at 09:00; Stop 12/03/17 at 19:08; Status DC Gemfibrozil (Lopid) 600 mg BIDWMEALS PO Last administered on 12/03/17 17:37; Start 11/24/17 at 08:00 Glucagon (Glucagen Kit) 1 mg PRN 1X PRN SQ hypoglycemia; Start 11/23/17 at 22: 15 Insulin Human Lispro (HumaLOG) 4 units DAILYWBKFT SQ Last administered on 08:06; Start 11/24/17 at 08:00 Insulin Human Lispro (HumaLOG) 8 units DAILYBFRLUN SQ Last administered on 12/03at 12:05; Start 11/24/17 at 11:30 Insulin Human Lispro (HumaLOG) 10 units DAILYBFRSUP SQ Last administered on 17:37; Start 11/24/17 at 17:00 Insulin Glargine (Lantus) 16 units HS SQ Last administered on 12/03/17 20:52; Start 11/23/17 at 23:00 Insulin Glargine (Lantus) 26 units DAILYWBKFT SQ Last administered on 08:12; Start 11/24/17 at 08:00 Lisinopril (Prinivil) 20 mg DAILY PO Last administered on 12/03/17 08:10; Start 11/24/17 at 09:00 Magnesium Oxide (Magnesium Oxide) 400 mg DAILY PO Last administered on 08:08; Start 11/24/17 at 09:00 Sennosides (Senna) 8.6 mg BID PO Last administered on 12/03/17 20:48; Start at 09:00 Tramadol HCl (Ultram) 50 mg PRN Q6HRS PRN PO PAIN Last administered on 10:49; Start 11/23/17 at 22:15 Fluticasone Propionate (Flonase) 2 spray PRN DAILY PRN NS ALLERGIES Last administered on 11/25/17 00:29; Start 11/24/17 at 09:00 Non-Formulary Medication (Gly/Dimeth/ Petrolat,Wht/ Water (Moisturizing Cream)) 1 yong PRN PRN TP skin protectant; Start 11/23/17 at 22:15; Status UNV Non-Formulary Medication (Mag Hydrox/Al Hydrox/Simeth (Mintox Suspension)) 15 ml PRN BID PRN PO gerd; Start 11/23/17 at 22:15; Status UNV Non-Formulary Medication (Magnesium Hydroxide (Milk Of Magnesia)) 2,400 mg PRN DAILY PRN PO CONSTIPATION; Start 11/23/17 at 22:15; Status UNV Multivitamins/ Calcium (Thera-M Plus) 1 tab DAILY PO Last administered on 08:09; Start 11/24/17 at 09:00 Pioglitazone HCl (Actos) 30 mg DAILY PO Last administered on 12/03/17 08:10; Start 11/24/17 at 09:00 Potassium Chloride (Klor-Con) 10 meq DAILY PO Last administered on 12/03/17 08 :09; Start 11/24/17 at 09:00 Simethicone (Gas-X) 120 mg TID PO Last administered on 12/03/17 20:49; Start 11/24/17 at 09:00 Divalproex Sodium (Depakote Er) 500 mg HS PO Last administered on 11/26/17 19: 33; Start 11/24/17 at 21:00; Stop 11/27/17 at 18:23; Status DC Phenylephrine/ Shark Liver Oil (Preparation H) 1 supp PRN Q8HRS PRN IA RECTAL PAIN Last administered on 4/23/18at 09:03; Start 11/24/17 at 19:00 Lactobacillus Rhamnosus (Culturelle) 1 cap BID PO Last administered on 20:47; Start 11/25/17 at 21:00 Fluvoxamine Maleate (Luvox) 25 mg HS PO Last administered on 12/01/17 20:56; Start 11/25/17 at 21:00; Stop 12/02/17 at 18:28; Status DC Olanzapine (ZyPREXA ZYDIS) 2.5 mg PRN Q2HR PRN PO PSYCHOSIS Last administered on 12/03/17 12:31; Start 11/25/17 at 18:15 Cyanocobalamin (Vitamin B-12) 1,000 mcg QMONTH IM ; Start 11/26/17 at 09:00; Stop 11/26/17 at 09:00; Status DC Divalproex Sodium (Depakote Er) 1,000 mg HS PO Last administered on 11/29/17 19:22; Start 11/27/17 at 21:00; Stop 11/30/17 at 18:31; Status DC Haloperidol (Haldol) 20 mg DAILY PO Last administered on 12/03/17 08:08; Start 11/28/17 at 09:00 Haloperidol (Haldol) 15 mg HS PO Last administered on 12/03/17 20:49; Start at 21:00 Polyethylene Glycol (miraLAX) 17 gm DAILY PO ; Start 11/30/17 at 12:30; Stop at 12:30; Status DC Polyethylene Glycol (miraLAX) 17 gm DAILY PO Last administered on 12/03/17 08: 10; Start 11/30/17 at 09:00 Divalproex Sodium (Depakote Er) 1,500 mg HS PO Last administered on 12/03/17 20:48; Start 11/30/17 at 21:00 Fluvoxamine Maleate (Luvox) 50 mg HS PO Last administered on 12/03/17 20:49; Start 12/02/17 at 21:00 Gabapentin (Neurontin) 300 mg TID PO Last administered on 12/03/17 20:48; Start 12/03/17 at 21:00 Active Scripts Active Reported Tramadol Hcl (Tramadol HCl) 50 Mg Tablet 50 Mg PO PRN Q6HRS PRN Multi Vitamin Daily (Multivitamin) 1 Each Tablet 1 Tab PO DAILY Simethicone 125 Mg Capsule 125 Mg PO TID Senna Lax (Sennosides) 8.6 Mg Tablet 8.6 Mg PO BID Potassium Chloride 10 Meq Tablet.er 10 Meq PO DAILY Actos (Pioglitazone Hcl) 30 Mg Tablet 30 Mg PO DAILY Pepcid (Famotidine) 20 Mg Tablet 20 Mg PO BID Novolog Flexpen (Insulin Aspart) 100 Unit/1 Ml Insuln.pen 8 Units SQ DAILYBFRLUN Novolog Flexpen (Insulin Aspart) 100 Unit/1 Ml Insuln.pen 4 Units SQ DAILYWBKFT Novolog Flexpen (Insulin Aspart) 100 Unit/1 Ml Insuln.pen 10 Unit SQ DAILYBFRSUP Moisturizing Cream (Gly/Dimeth/Petrolat,Wht/Water) 453 Gm Cream..g. 1 Yong TP PRN PRN Mintox Suspension (Mag Hydrox/Al Hydrox/Simeth) 355 Ml Oral.susp 15 Ml PO PRN BID PRN Milk Of Magnesia (Magnesium Hydroxide) 2,400 Mg/10 Ml Oral.susp 2,400 Mg PO PRN DAILY PRN Mapap (Acetaminophen) 500 Mg Tablet 500 Mg PO PRN Q6HRS PRN Magnesium Oxide 400 Mg Tablet 500 Mg PO DAILY Lisinopril 20 Mg Tablet 20 Mg PO DAILY Lipitor (Atorvastatin Calcium) 10 Mg Tablet 10 Mg PO QHS Levemir Flextouch (Insulin Detemir) 100 Unit/1 Ml Insuln.pen 26 Units SQ DAILYWBKFT Levemir Flextouch (Insulin Detemir) 100 Unit/1 Ml Insuln.pen 16 Units SQ HS Lasix (Furosemide) 40 Mg Tablet 40 Mg PO DAILY Haloperidol 10 Mg Tablet 20 Mg PO BID Haloperidol Lactate 5 Mg/1 Ml Vial 5 Mg IJ PRN Q4HRS PRN Glucagen (Glucagon,Human Recombinant) 1 Mg/1 Ml Vial 1 Mg IJ PRN PRN Gemfibrozil 600 Mg Tablet 600 Mg PO BID Gabapentin 300 Mg Capsule 300 Mg PO BID Flonase Allergy Relief (Fluticasone Propionate) 9.9 Ml [place].susp 2 Sprays NS PRN PRN Erythromycin (Erythromycin Base) 250 Mg Tablet 250 Mg PO TIDPC Docusate Sodium 100 Mg Capsule 100 Mg PO DAILY Docusate Sodium 100 Mg Capsule 100 Mg PO PRN DAILY PRN Clonidine Hcl 0.1 Mg Tablet 0.1 Mg PO HS Clonazepam 0.5 Mg Tablet 0.5 Mg PO BID Cetirizine Hcl 10 Mg Tablet 10 Mg PO DAILY Aspirin Ec (Aspirin) 81 Mg Tablet.dr 81 Mg PO DAILY Amlodipine Besylate 10 Mg Tablet 10 Mg PO DAILY Abilify (Aripiprazole) 15 Mg Tablet 15 Mg PO BID I have reviewed the current psychotropics carefully including drug interactions. Risk benefit ratio favors no change other than as noted in my dictated progress note. Diagnosis: Problems: (1) Acute adjustment disorder (2) Anxiety disorder (3) Bipolar affective, mixed, sev w/ psych (4) Schizoaffective disorder, chronic condition with acute exacerbation (5) Schizophrenia, disorganized, subchronic with acute exacerbation JASS HUNG MD Dec 03, 2017 21:15
[2017-12-04 06:00] VITALS: BP 116/54
[2017-12-04] MEDS: ARIPiprazole 15 MG TABLET PO SCH ×2 (09:09→19:20)
[2017-12-04] MEDS: FAMOTIDINE 20 MG TABLET PO SCH ×2 (09:09→19:21)
[2017-12-04] MEDS: MAGNESIUM OXIDE 400 MG TABLET PO SCH (09:09)
[2017-12-04] MEDS: LISINOPRIL 20 MG TABLET PO SCH (09:10)
[2017-12-04] MEDS: SENNOSIDES 8.6 MG TABLET PO SCH ×2 (09:10→19:20)
[2017-12-04] MEDS: FUROSEMIDE 40 MG TABLET PO SCH (09:10)
[2017-12-04] MEDS: ASPIRIN ENTERIC COATED 81 MG TABLET.DR. PO SCH (09:10)
[2017-12-04] MEDS: MULTIVITAMIN with MINERAL TABLET. PO SCH (09:10)
[2017-12-04] MEDS: GABAPENTIN 300 MG CAPSULE. PO SCH ×3 (09:10→19:20)
[2017-12-04] MEDS: PIOGLITAZONE 15 MG TABLET. PO SCH (09:10)
[2017-12-04] MEDS: amLODIPine BESYLATE 10 MG TABLET PO SCH (09:11)
[2017-12-04] MEDS: DOCUSATE SODIUM 100 MG CAPSULE PO SCH (09:11)
[2017-12-04] MEDS: CETIRIZINE HCL 10 MG TABLET PO SCH (09:11)
[2017-12-04] MEDS: POTASSIUM CHLORIDE 10 MEQ TABLET.ER. PO SCH (09:11)
[2017-12-04] MEDS: SIMETHICONE 80 MG TAB.CHEW PO SCH ×3 (09:11→19:20)
[2017-12-04] MEDS: GEMFIBROZIL 600 MG TABLET. PO SCH ×2 (09:11→17:44)
[2017-12-04] MEDS: POLYETHYLENE GLYCOL 3350 17 GM PACKET. PO SCH (09:12)
[2017-12-04] MEDS: HALOPERIDOL 5 MG TABLET PO SCH ×2 (09:15→19:20)
[2017-12-04] MEDS: clonazePAM 0.5 MG TABLET PO SCH ×2 (09:15→19:23)
[2017-12-04] MEDS: LACTOBACILLUS RHAMNOSUS GG 1 CAPSULE. PO SCH ×2 (09:15→19:21)
[2017-12-04] MEDS: INSULIN LISPRO 300 UNITS/3 ML INSULN.PEN. SQ SCH ×3 (09:16→17:53)
[2017-12-04] MEDS: INSULIN GLARGINE 300 UNITS/3 ML INSULN.PEN. SQ SCH ×2 (09:18→20:06)
[2017-12-04] MEDS: traMADol 50 MG TABLET PO PRN (10:06)
[2017-12-04 15:42] LABS: BILIRUBIN,URINE NEG (NEG); CLARITY,URINE CLEAR; COLOR,URINE YELLOW; GLUCOSE,URINE NEG (NEG); NITRITE,URINE NEG (NEG); UROBILINOGEN,URINE 0.2 mg/dL (0.2 mg/dL)
[2017-12-04 15:43] LABS: BACTERIA,URINE 0 /HPF (0-FEW); SQUAMOUS EPITHELIAL CELL,UR MOD /LPF
[2017-12-04 16:30] VITALS: BP 138/74
[2017-12-04] MEDS: DIVALPROEX ER 500 MG TAB.ER.24H PO SCH (19:19)
[2017-12-04] MEDS: cloNIDine HCL 0.1 MG TABLET PO SCH (19:20)
[2017-12-04] MEDS: cloZAPine 25 MG TABLET PO SCH (21:18)
--- NOTE | 2017-12-04 23:02 | PDOC ---
Exam Note: Tay Note: Please also refer to the separate dictated note~for this date of service dictated separately.~Patient seen individually. Discussed the patient with Nursing staff reviewed the chart.~Reviewed interim history and current functioning. Reviewed vital signs,~Labs/ Radiology~and current medications noted below. Continue current treatment with the changes noted in the dictated addendum note Assessment: Vital Signs: Vital Signs Date Time Temp Pulse Resp B/P (MAP) Pulse Ox O2 Delivery O2 Flow Rate FiO2 12/04/17 19:20 68 138/74 12/04/17 16:30 97.4 18 94 12/04/17 12:45 Room Air I&O Intake and Output 12/04/17 07:00 Intake Total 1080 ml Balance 1080 ml Intake Oral 1080 ml Labs: Laboratory Tests Test 12/04/17 07:32 12/04/17 11:24 12/04/17 14:55 12/04/17 16:35 Glucose (Fingerstick) 95 mg/dL (70-99) 178 mg/dL (70-99) H 129 mg/dL (70-99) H Urine Collection Type Unknown Urine Color Yellow Urine Clarity Clear Urine pH 6.0 Urine Specific [place] <=1.005 Urine Protein 30 mg/dl (NEG-TRACE) Urine Glucose (UA) Neg mg/dL (NEG) Urine Ketones (Stick) Neg mg/dL (NEG) Urine Blood Neg (NEG) Urine Nitrite Neg (NEG) Urine Bilirubin Neg (NEG) Urine Urobilinogen Dipstick 0.2 mg/dL (0.2 mg/dL) Urine Leukocyte Esterase Small (NEG) Urine RBC 3-5 /HPF (0-2) Urine WBC 5-10 /HPF (0-4) Urine Squamous Epithelial Cells Mod /LPF Urine Bacteria 0 /HPF (0-FEW) Test 12/04/17 19:11 Glucose (Fingerstick) 173 mg/dL (70-99) H Current Medications: Meds: Current Medications Ciprofloxacin Lactate 200 ml @ 200 mls/hr 1X ONCE IV ; Start 11/23/17 at 16:30 ; Stop 11/23/17 at 16:31; Status DC Ciprofloxacin (Cipro) 500 mg 1X ONCE PO Last administered on 11/23/17at 16:45; Start 11/23/17 at 17:00; Stop 11/23/17 at 17:01; Status DC Acetaminophen (Tylenol) 650 mg PRN Q6HRS PRN PO PAIN / TEMP; Start 11/23/17 at 17:45; Status Cancel Multi-Ingredient Ointment (Analgesic [place]) 1 yong PRN QID PRN TP MUSCLE PAIN; Start 11/23/17 at 17:45 Al Hydroxide/Mg Hydroxide (Mylanta Plus Xs) 15 ml PRN AFTMEALHC PRN PO DYSPEPSIA; Start 11/23/17 at 17:45 Magnesium Hydroxide (Milk Of Magnesia) 2,400 mg PRN QHS PRN PO CONSTIPATION Last administered on 12/02/17 17:21; Start 11/23/17 at 17:45 Aripiprazole (Abilify) 15 mg BID PO Last administered on 12/04/17 19:20; Start 11/24/17 at 09:00 Clonazepam (KlonoPIN) 0.5 mg BID PO Last administered on 12/04/17 19:23; Start 11/24/17 at 09:00 Haloperidol Lactate (Haldol) 5 mg PRN Q4HRS PRN IM AGITATION; Start 11/23/17 at 22:15 Haloperidol (Haldol) 20 mg BID PO Last administered on 11/27/17 08:57; Start 11/24/17 at 09:00; Stop 11/27/17 at 18:23; Status DC Acetaminophen (Tylenol) 500 mg PRN Q6HRS PRN PO PAIN Last administered on 09:16; Start 11/23/17 at 22:15 Amlodipine Besylate (Norvasc) 10 mg DAILY PO Last administered on 12/04/17 09: 11; Start 11/24/17 at 09:00 Aspirin (Aspirin Enteric Coated) 81 mg DAILY PO Last administered on 12/04/17 09:10; Start 11/24/17 at 09:00 Cetirizine HCl (ZyrTEC) 10 mg DAILY PO Last administered on 12/04/17 09:11; Start 11/24/17 at 09:00 Clonidine HCl (Catapres) 0.1 mg HS PO Last administered on 12/04/17 19:20; Start 11/24/17 at 21:00 Docusate Sodium (Colace) 100 mg DAILY PO Last administered on 12/04/17 09:11; Start 11/24/17 at 09:00 Docusate Sodium (Colace) 100 mg PRN DAILY PRN PO CONSTIPATION; Start 11/23/17 at 22:15 Erythromycin (E-Mycin) 250 mg TIDPC PO Last administered on 11/25/17at 16:39; Start 11/24/17 at 08:30; Stop 11/25/17 at 18:49; Status DC Famotidine (Pepcid) 20 mg BID PO Last administered on 12/04/17 19:21; Start at 09:00 Furosemide (Lasix) 40 mg DAILY PO Last administered on 12/04/17 09:10; Start 11/24/17 at 09:00 Gabapentin (Neurontin) 300 mg BID PO Last administered on 12/03/17 08:10; Start 11/24/17 at 09:00; Stop 12/03/17 at 19:08; Status DC Gemfibrozil (Lopid) 600 mg BIDWMEALS PO Last administered on 12/04/17 17:44; Start 11/24/17 at 08:00 Glucagon (Glucagen Kit) 1 mg PRN 1X PRN SQ hypoglycemia; Start 11/23/17 at 22: 15 Insulin Human Lispro (HumaLOG) 4 units DAILYWBKFT SQ Last administered on 09:16; Start 11/24/17 at 08:00 Insulin Human Lispro (HumaLOG) 8 units DAILYBFRLUN SQ Last administered on 12/04at 11:45; Start 11/24/17 at 11:30 Insulin Human Lispro (HumaLOG) 10 units DAILYBFRSUP SQ Last administered on 17:53; Start 11/24/17 at 17:00 Insulin Glargine (Lantus) 16 units HS SQ Last administered on 12/04/17 20:06; Start 11/23/17 at 23:00 Insulin Glargine (Lantus) 26 units DAILYWBKFT SQ Last administered on 09:18; Start 11/24/17 at 08:00 Lisinopril (Prinivil) 20 mg DAILY PO Last administered on 12/04/17at 09:10; Start 11/24/17 at 09:00 Magnesium Oxide (Magnesium Oxide) 400 mg DAILY PO Last administered on 09:09; Start 11/24/17 at 09:00 Sennosides (Senna) 8.6 mg BID PO Last administered on 12/04/17 19:20; Start at 09:00 Tramadol HCl (Ultram) 50 mg PRN Q6HRS PRN PO PAIN Last administered on 10:06; Start 11/23/17 at 22:15 Fluticasone Propionate (Flonase) 2 spray PRN DAILY PRN NS ALLERGIES Last administered on 11/25/17 00:29; Start 11/24/17 at 09:00 Non-Formulary Medication (Gly/Dimeth/ Petrolat,Wht/ Water (Moisturizing Cream)) 1 yong PRN PRN TP skin protectant; Start 11/23/17 at 22:15; Status UNV Non-Formulary Medication (Mag Hydrox/Al Hydrox/Simeth (Mintox Suspension)) 15 ml PRN BID PRN PO gerd; Start 11/23/17 at 22:15; Status UNV Non-Formulary Medication (Magnesium Hydroxide (Milk Of Magnesia)) 2,400 mg PRN DAILY PRN PO CONSTIPATION; Start 11/23/17 at 22:15; Status UNV Multivitamins/ Calcium (Thera-M Plus) 1 tab DAILY PO Last administered on 09:10; Start 11/24/17 at 09:00 Pioglitazone HCl (Actos) 30 mg DAILY PO Last administered on 12/04/17 09:10; Start 11/24/17 at 09:00 Potassium Chloride (Klor-Con) 10 meq DAILY PO Last administered on 12/04/17 09 :11; Start 11/24/17 at 09:00 Simethicone (Gas-X) 120 mg TID PO Last administered on 12/04/17 19:20; Start 11/24/17 at 09:00 Divalproex Sodium (Depakote Er) 500 mg HS PO Last administered on 11/26/17 19: 33; Start 11/24/17 at 21:00; Stop 11/27/17 at 18:23; Status DC Phenylephrine/ Shark Liver Oil (Preparation H) 1 supp PRN Q8HRS PRN ND RECTAL PAIN Last administered on 11/30/17 09:03; Start 11/24/17 at 19:00 Lactobacillus Rhamnosus (Culturelle) 1 cap BID PO Last administered on 19:21; Start 11/25/17 at 21:00 Fluvoxamine Maleate (Luvox) 25 mg HS PO Last administered on 12/01/17 20:56; Start 11/25/17 at 21:00; Stop 12/02/17 at 18:28; Status DC Olanzapine (ZyPREXA ZYDIS) 2.5 mg PRN Q2HR PRN PO PSYCHOSIS Last administered on 12/03/17 12:31; Start 11/25/17 at 18:15 Cyanocobalamin (Vitamin B-12) 1,000 mcg QMONTH IM ; Start 11/26/17 at 09:00; Stop 11/26/17 at 09:00; Status DC Divalproex Sodium (Depakote Er) 1,000 mg HS PO Last administered on 11/29/17 19:22; Start 11/27/17 at 21:00; Stop 11/30/17 at 18:31; Status DC Haloperidol (Haldol) 20 mg DAILY PO Last administered on 12/04/17 09:15; Start 11/28/17 at 09:00 Haloperidol (Haldol) 15 mg HS PO Last administered on 12/04/17 19:20; Start at 21:00 Polyethylene Glycol (miraLAX) 17 gm DAILY PO ; Start 11/30/17 at 12:30; Stop at 12:30; Status DC Polyethylene Glycol (miraLAX) 17 gm DAILY PO Last administered on 12/04/17 09: 12; Start 11/30/17 at 09:00 Divalproex Sodium (Depakote Er) 1,500 mg HS PO Last administered on 12/04/17 19:19; Start 11/30/17 at 21:00 Fluvoxamine Maleate (Luvox) 50 mg HS PO Last administered on 12/04/17 19:19; Start 12/02/17 at 21:00 Gabapentin (Neurontin) 300 mg TID PO Last administered on 12/04/17 19:20; Start 12/03/17 at 21:00 Clozapine (Clozaril) 25 mg HS PO Last administered on 12/04/17at 21:18; Start at 21:00 Active Scripts Active Reported Tramadol Hcl (Tramadol HCl) 50 Mg Tablet 50 Mg PO PRN Q6HRS PRN Multi Vitamin Daily (Multivitamin) 1 Each Tablet 1 Tab PO DAILY Simethicone 125 Mg Capsule 125 Mg PO TID Senna Lax (Sennosides) 8.6 Mg Tablet 8.6 Mg PO BID Potassium Chloride 10 Meq Tablet.er 10 Meq PO DAILY Actos (Pioglitazone Hcl) 30 Mg Tablet 30 Mg PO DAILY Pepcid (Famotidine) 20 Mg Tablet 20 Mg PO BID Novolog Flexpen (Insulin Aspart) 100 Unit/1 Ml Insuln.pen 8 Units SQ DAILYBFRLUN Novolog Flexpen (Insulin Aspart) 100 Unit/1 Ml Insuln.pen 4 Units SQ DAILYWBKFT Novolog Flexpen (Insulin Aspart) 100 Unit/1 Ml Insuln.pen 10 Unit SQ DAILYBFRSUP Moisturizing Cream (Gly/Dimeth/Petrolat,Wht/Water) 453 Gm Cream..g. 1 Yong TP PRN PRN Mintox Suspension (Mag Hydrox/Al Hydrox/Simeth) 355 Ml Oral.susp 15 Ml PO PRN BID PRN Milk Of Magnesia (Magnesium Hydroxide) 2,400 Mg/10 Ml Oral.susp 2,400 Mg PO PRN DAILY PRN Mapap (Acetaminophen) 500 Mg Tablet 500 Mg PO PRN Q6HRS PRN Magnesium Oxide 400 Mg Tablet 500 Mg PO DAILY Lisinopril 20 Mg Tablet 20 Mg PO DAILY Lipitor (Atorvastatin Calcium) 10 Mg Tablet 10 Mg PO QHS Levemir Flextouch (Insulin Detemir) 100 Unit/1 Ml Insuln.pen 26 Units SQ DAILYWBKFT Levemir Flextouch (Insulin Detemir) 100 Unit/1 Ml Insuln.pen 16 Units SQ HS Lasix (Furosemide) 40 Mg Tablet 40 Mg PO DAILY Haloperidol 10 Mg Tablet 20 Mg PO BID Haloperidol Lactate 5 Mg/1 Ml Vial 5 Mg IJ PRN Q4HRS PRN Glucagen (Glucagon,Human Recombinant) 1 Mg/1 Ml Vial 1 Mg IJ PRN PRN Gemfibrozil 600 Mg Tablet 600 Mg PO BID Gabapentin 300 Mg Capsule 300 Mg PO BID Flonase Allergy Relief (Fluticasone Propionate) 9.9 Ml [place].susp 2 Sprays NS PRN PRN Erythromycin (Erythromycin Base) 250 Mg Tablet 250 Mg PO TIDPC Docusate Sodium 100 Mg Capsule 100 Mg PO DAILY Docusate Sodium 100 Mg Capsule 100 Mg PO PRN DAILY PRN Clonidine Hcl 0.1 Mg Tablet 0.1 Mg PO HS Clonazepam 0.5 Mg Tablet 0.5 Mg PO BID Cetirizine Hcl 10 Mg Tablet 10 Mg PO DAILY Aspirin Ec (Aspirin) 81 Mg Tablet.dr 81 Mg PO DAILY Amlodipine Besylate 10 Mg Tablet 10 Mg PO DAILY Abilify (Aripiprazole) 15 Mg Tablet 15 Mg PO BID I have reviewed the current psychotropics carefully including drug interactions. Risk benefit ratio favors no change other than as noted in my dictated progress note. Diagnosis: Problems: (1) Peripheral neuropathy (2) UTI (urinary tract infection) (3) Skin tear (4) Acute adjustment disorder (5) Anxiety disorder (6) Bipolar affective, mixed, sev w/ psych (7) Schizoaffective disorder, chronic condition with acute exacerbation (8) Schizophrenia, disorganized, subchronic with acute exacerbation JASS HUNG MD Dec 04, 2017 23:02
[2017-12-05 06:38] VITALS: BP 111/57
[2017-12-05] MEDS: SIMETHICONE 80 MG TAB.CHEW PO SCH ×3 (09:19→19:42)
[2017-12-05] MEDS: LACTOBACILLUS RHAMNOSUS GG 1 CAPSULE. PO SCH ×2 (09:19→19:48)
[2017-12-05] MEDS: GABAPENTIN 300 MG CAPSULE. PO SCH ×3 (09:20→19:45)
[2017-12-05] MEDS: amLODIPine BESYLATE 10 MG TABLET PO SCH (09:20)
[2017-12-05] MEDS: PIOGLITAZONE 15 MG TABLET. PO SCH (09:20)
[2017-12-05] MEDS: FUROSEMIDE 40 MG TABLET PO SCH (09:20)
[2017-12-05] MEDS: ARIPiprazole 15 MG TABLET PO SCH ×2 (09:20→19:48)
[2017-12-05] MEDS: FAMOTIDINE 20 MG TABLET PO SCH ×2 (09:20→19:47)
[2017-12-05] MEDS: GEMFIBROZIL 600 MG TABLET. PO SCH ×2 (09:20→17:00)
[2017-12-05] MEDS: HALOPERIDOL 5 MG TABLET PO SCH ×2 (09:21→19:52)
[2017-12-05] MEDS: DOCUSATE SODIUM 100 MG CAPSULE PO SCH (09:21)
[2017-12-05] MEDS: MAGNESIUM OXIDE 400 MG TABLET PO SCH (09:21)
[2017-12-05] MEDS: CETIRIZINE HCL 10 MG TABLET PO SCH (09:21)
[2017-12-05] MEDS: SENNOSIDES 8.6 MG TABLET PO SCH ×2 (09:22→19:47)
[2017-12-05] MEDS: MULTIVITAMIN with MINERAL TABLET. PO SCH (09:22)
[2017-12-05] MEDS: POTASSIUM CHLORIDE 10 MEQ TABLET.ER. PO SCH (09:22)
[2017-12-05] MEDS: ASPIRIN ENTERIC COATED 81 MG TABLET.DR. PO SCH (09:22)
[2017-12-05] MEDS: LISINOPRIL 20 MG TABLET PO SCH (09:22)
[2017-12-05] MEDS: POLYETHYLENE GLYCOL 3350 17 GM PACKET. PO SCH (09:23)
[2017-12-05] MEDS: INSULIN LISPRO 300 UNITS/3 ML INSULN.PEN. SQ SCH ×3 (09:24→17:00)
[2017-12-05] MEDS: INSULIN GLARGINE 300 UNITS/3 ML INSULN.PEN. SQ SCH ×2 (09:25→19:54)
[2017-12-05] MEDS: clonazePAM 0.5 MG TABLET PO SCH ×2 (09:26→19:52)
[2017-12-05] MEDS: MAGNESIUM HYDROXIDE 2,400 MG/30 ML ORAL.SUSP. PO PRN (14:09)
--- NOTE | 2017-12-05 16:38 | PN ---
DATE: 12/02/2017 This late entry, 12/02/2017, covers elements not covered in my initial note of 12/02/2017. SUBJECTIVE: I met with the patient the evening of 12/02/2017. The patient is somewhat calmer than previous evening, still paranoid, psychotic, anxious, obsessive, back and forth to the nursing station window asking for things repeatedly. REVIEW OF SYSTEMS: No CV, , pulmonary, eye, ENT system symptoms on review. She has vague somatic symptoms. I met with her individually in her room. MENTAL STATUS EXAM: Oriented to herself and situation. Speech is coherent, pressured at times. Abstraction fair, computation impaired, language function intact, attention span short. Mood and affect remains somewhat labile. LABORATORY DATA: Reviewed. IMPRESSION: Unchanged from initial note. PLAN: Continue psychotropics mentioned in my initial note. MAN Prosper HUNG MD DR: KATIANA/alicia JOB#: [id number] / [id number]
[2017-12-05 17:35] VITALS: BP 123/69
[2017-12-05] MEDS: DIVALPROEX ER 500 MG TAB.ER.24H PO SCH (19:45)
[2017-12-05] MEDS: cloZAPine 25 MG TABLET PO SCH (19:45)
[2017-12-05] MEDS: cloNIDine HCL 0.1 MG TABLET PO SCH (19:47)
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
--- NOTE | 2017-12-05 22:35 | PDOC ---
Exam Note: Tay Note: Please also refer to the separate dictated note~for this date of service dictated separately.~Patient seen individually. Discussed the patient with Nursing staff reviewed the chart.~Reviewed interim history and current functioning. Reviewed vital signs,~Labs/ Radiology~and current medications noted below. Continue current treatment with the changes noted in the dictated addendum note Assessment: Vital Signs: Vital Signs Date Time Temp Pulse Resp B/P (MAP) Pulse Ox O2 Delivery O2 Flow Rate FiO2 12/05/17 19:47 74 123/69 12/05/17 17:35 97.6 18 93 12/04/17 12:45 Room Air I&O Intake and Output 12/05/17 07:00 Intake Total 1080 ml Balance 1080 ml Intake Oral 1080 ml Labs: Laboratory Tests Test 12/05/17 07:44 12/05/17 11:53 12/05/17 16:58 Glucose (Fingerstick) 167 mg/dL (70-99) H 189 mg/dL (70-99) H 174 mg/dL (70-99) H Current Medications: Meds: Current Medications Ciprofloxacin Lactate 200 ml @ 200 mls/hr 1X ONCE IV ; Start 11/23/17 at 16:30 ; Stop 11/23/17 at 16:31; Status DC Ciprofloxacin (Cipro) 500 mg 1X ONCE PO Last administered on 11/23/17at 16:45; Start 11/23/17 at 17:00; Stop 11/23/17 at 17:01; Status DC Acetaminophen (Tylenol) 650 mg PRN Q6HRS PRN PO PAIN / TEMP; Start 11/23/17 at 17:45; Status Cancel Multi-Ingredient Ointment (Analgesic [place]) 1 yong PRN QID PRN TP MUSCLE PAIN; Start 11/23/17 at 17:45 Al Hydroxide/Mg Hydroxide (Mylanta Plus Xs) 15 ml PRN AFTMEALHC PRN PO DYSPEPSIA; Start 11/23/17 at 17:45 Magnesium Hydroxide (Milk Of Magnesia) 2,400 mg PRN QHS PRN PO CONSTIPATION Last administered on 12/05/17at 14:09; Start 11/23/17 at 17:45 Aripiprazole (Abilify) 15 mg BID PO Last administered on 12/05/17at 19:48; Start 11/24/17 at 09:00 Clonazepam (KlonoPIN) 0.5 mg BID PO Last administered on 12/05/17 19:52; Start 11/24/17 at 09:00 Haloperidol Lactate (Haldol) 5 mg PRN Q4HRS PRN IM AGITATION; Start 11/23/17 at 22:15 Haloperidol (Haldol) 20 mg BID PO Last administered on 11/27/17 08:57; Start 11/24/17 at 09:00; Stop 11/27/17 at 18:23; Status DC Acetaminophen (Tylenol) 500 mg PRN Q6HRS PRN PO PAIN Last administered on 09:16; Start 11/23/17 at 22:15 Amlodipine Besylate (Norvasc) 10 mg DAILY PO Last administered on 12/05/17 09: 20; Start 11/24/17 at 09:00 Aspirin (Aspirin Enteric Coated) 81 mg DAILY PO Last administered on 12/05/17 09:22; Start 11/24/17 at 09:00 Cetirizine HCl (ZyrTEC) 10 mg DAILY PO Last administered on 12/05/17 09:21; Start 11/24/17 at 09:00 Clonidine HCl (Catapres) 0.1 mg HS PO Last administered on 12/05/17 19:47; Start 11/24/17 at 21:00 Docusate Sodium (Colace) 100 mg DAILY PO Last administered on 12/05/17 09:21; Start 11/24/17 at 09:00 Docusate Sodium (Colace) 100 mg PRN DAILY PRN PO CONSTIPATION; Start 11/23/17 at 22:15 Erythromycin (E-Mycin) 250 mg TIDPC PO Last administered on 11/25/17 16:39; Start 11/24/17 at 08:30; Stop 11/25/17 at 18:49; Status DC Famotidine (Pepcid) 20 mg BID PO Last administered on 12/05/17 19:47; Start at 09:00 Furosemide (Lasix) 40 mg DAILY PO Last administered on 12/05/17 09:20; Start 11/24/17 at 09:00 Gabapentin (Neurontin) 300 mg BID PO Last administered on 12/03/17 08:10; Start 11/24/17 at 09:00; Stop 12/03/17 at 19:08; Status DC Gemfibrozil (Lopid) 600 mg BIDWMEALS PO Last administered on 12/05/17 09:20; Start 11/24/17 at 08:00 Glucagon (Glucagen Kit) 1 mg PRN 1X PRN SQ hypoglycemia; Start 11/23/17 at 22: 15 Insulin Human Lispro (HumaLOG) 4 units DAILYWBKFT SQ Last administered on 09:24; Start 11/24/17 at 08:00 Insulin Human Lispro (HumaLOG) 8 units DAILYBFRLUN SQ Last administered on 12/05 12:15; Start 11/24/17 at 11:30 Insulin Human Lispro (HumaLOG) 10 units DAILYBFRSUP SQ Last administered on 17:53; Start 11/24/17 at 17:00 Insulin Glargine (Lantus) 16 units HS SQ Last administered on 12/05/17 19:54; Start 11/23/17 at 23:00 Insulin Glargine (Lantus) 26 units DAILYWBKFT SQ Last administered on 09:25; Start 11/24/17 at 08:00 Lisinopril (Prinivil) 20 mg DAILY PO Last administered on 12/05/17 09:22; Start 11/24/17 at 09:00 Magnesium Oxide (Magnesium Oxide) 400 mg DAILY PO Last administered on 09:21; Start 11/24/17 at 09:00 Sennosides (Senna) 8.6 mg BID PO Last administered on 12/05/17 19:47; Start at 09:00 Tramadol HCl (Ultram) 50 mg PRN Q6HRS PRN PO PAIN Last administered on 10:06; Start 11/23/17 at 22:15 Fluticasone Propionate (Flonase) 2 spray PRN DAILY PRN NS ALLERGIES Last administered on 11/25/17 00:29; Start 11/24/17 at 09:00 Non-Formulary Medication (Gly/Dimeth/ Petrolat,Wht/ Water (Moisturizing Cream)) 1 yong PRN PRN TP skin protectant; Start 11/23/17 at 22:15; Status UNV Non-Formulary Medication (Mag Hydrox/Al Hydrox/Simeth (Mintox Suspension)) 15 ml PRN BID PRN PO gerd; Start 11/23/17 at 22:15; Status UNV Non-Formulary Medication (Magnesium Hydroxide (Milk Of Magnesia)) 2,400 mg PRN DAILY PRN PO CONSTIPATION; Start 11/23/17 at 22:15; Status UNV Multivitamins/ Calcium (Thera-M Plus) 1 tab DAILY PO Last administered on 09:22; Start 11/24/17 at 09:00 Pioglitazone HCl (Actos) 30 mg DAILY PO Last administered on 12/05/17 09:20; Start 11/24/17 at 09:00 Potassium Chloride (Klor-Con) 10 meq DAILY PO Last administered on 12/05/17 09 :22; Start 11/24/17 at 09:00 Simethicone (Gas-X) 120 mg TID PO Last administered on 12/05/17 19:42; Start 11/24/17 at 09:00 Divalproex Sodium (Depakote Er) 500 mg HS PO Last administered on 11/26/17 19: 33; Start 11/24/17 at 21:00; Stop 11/27/17 at 18:23; Status DC Phenylephrine/ Shark Liver Oil (Preparation H) 1 supp PRN Q8HRS PRN OR RECTAL PAIN Last administered on 11/30/17 09:03; Start 11/24/17 at 19:00 Lactobacillus Rhamnosus (Culturelle) 1 cap BID PO Last administered on 19:48; Start 11/25/17 at 21:00 Fluvoxamine Maleate (Luvox) 25 mg HS PO Last administered on 12/01/17 20:56; Start 11/25/17 at 21:00; Stop 12/02/17 at 18:28; Status DC Olanzapine (ZyPREXA ZYDIS) 2.5 mg PRN Q2HR PRN PO PSYCHOSIS Last administered on 12/03/17 12:31; Start 11/25/17 at 18:15 Cyanocobalamin (Vitamin B-12) 1,000 mcg QMONTH IM ; Start 11/26/17 at 09:00; Stop 11/26/17 at 09:00; Status DC Divalproex Sodium (Depakote Er) 1,000 mg HS PO Last administered on 11/29/17 19:22; Start 11/27/17 at 21:00; Stop 11/30/17 at 18:31; Status DC Haloperidol (Haldol) 20 mg DAILY PO Last administered on 12/05/17 09:21; Start 11/28/17 at 09:00; Stop 12/05/17 at 15:45; Status DC Haloperidol (Haldol) 15 mg HS PO Last administered on 12/04/17 19:20; Start at 21:00; Stop 12/05/17 at 15:45; Status DC Polyethylene Glycol (miraLAX) 17 gm DAILY PO ; Start 11/30/17 at 12:30; Stop at 12:30; Status DC Polyethylene Glycol (miraLAX) 17 gm DAILY PO Last administered on 12/05/17 09: 23; Start 11/30/17 at 09:00 Divalproex Sodium (Depakote Er) 1,500 mg HS PO Last administered on 12/05/17 19:45; Start 11/30/17 at 21:00 Fluvoxamine Maleate (Luvox) 50 mg HS PO Last administered on 12/05/17 19:48; Start 12/02/17 at 21:00 Gabapentin (Neurontin) 300 mg TID PO Last administered on 12/05/17 19:45; Start 12/03/17 at 21:00 Clozapine (Clozaril) 25 mg HS PO Last administered on 12/05/17 19:45; Start at 21:00 Haloperidol (Haldol) 15 mg BID PO Last administered on 12/05/17 19:52; Start 12/05/17 at 21:00 Active Scripts Active Reported Tramadol Hcl (Tramadol HCl) 50 Mg Tablet 50 Mg PO PRN Q6HRS PRN Multi Vitamin Daily (Multivitamin) 1 Each Tablet 1 Tab PO DAILY Simethicone 125 Mg Capsule 125 Mg PO TID Senna Lax (Sennosides) 8.6 Mg Tablet 8.6 Mg PO BID Potassium Chloride 10 Meq Tablet.er 10 Meq PO DAILY Actos (Pioglitazone Hcl) 30 Mg Tablet 30 Mg PO DAILY Pepcid (Famotidine) 20 Mg Tablet 20 Mg PO BID Novolog Flexpen (Insulin Aspart) 100 Unit/1 Ml Insuln.pen 8 Units SQ DAILYBFRLUN Novolog Flexpen (Insulin Aspart) 100 Unit/1 Ml Insuln.pen 4 Units SQ DAILYWBKFT Novolog Flexpen (Insulin Aspart) 100 Unit/1 Ml Insuln.pen 10 Unit SQ DAILYBFRSUP Moisturizing Cream (Gly/Dimeth/Petrolat,Wht/Water) 453 Gm Cream..g. 1 Yong TP PRN PRN Mintox Suspension (Mag Hydrox/Al Hydrox/Simeth) 355 Ml Oral.susp 15 Ml PO PRN BID PRN Milk Of Magnesia (Magnesium Hydroxide) 2,400 Mg/10 Ml Oral.susp 2,400 Mg PO PRN DAILY PRN Mapap (Acetaminophen) 500 Mg Tablet 500 Mg PO PRN Q6HRS PRN Magnesium Oxide 400 Mg Tablet 500 Mg PO DAILY Lisinopril 20 Mg Tablet 20 Mg PO DAILY Lipitor (Atorvastatin Calcium) 10 Mg Tablet 10 Mg PO QHS Levemir Flextouch (Insulin Detemir) 100 Unit/1 Ml Insuln.pen 26 Units SQ DAILYWBKFT Levemir Flextouch (Insulin Detemir) 100 Unit/1 Ml Insuln.pen 16 Units SQ HS Lasix (Furosemide) 40 Mg Tablet 40 Mg PO DAILY Haloperidol 10 Mg Tablet 20 Mg PO BID Haloperidol Lactate 5 Mg/1 Ml Vial 5 Mg IJ PRN Q4HRS PRN Glucagen (Glucagon,Human Recombinant) 1 Mg/1 Ml Vial 1 Mg IJ PRN PRN Gemfibrozil 600 Mg Tablet 600 Mg PO BID Gabapentin 300 Mg Capsule 300 Mg PO BID Flonase Allergy Relief (Fluticasone Propionate) 9.9 Ml [place].susp 2 Sprays NS PRN PRN Erythromycin (Erythromycin Base) 250 Mg Tablet 250 Mg PO TIDPC Docusate Sodium 100 Mg Capsule 100 Mg PO DAILY Docusate Sodium 100 Mg Capsule 100 Mg PO PRN DAILY PRN Clonidine Hcl 0.1 Mg Tablet 0.1 Mg PO HS Clonazepam 0.5 Mg Tablet 0.5 Mg PO BID Cetirizine Hcl 10 Mg Tablet 10 Mg PO DAILY Aspirin Ec (Aspirin) 81 Mg Tablet.dr 81 Mg PO DAILY Amlodipine Besylate 10 Mg Tablet 10 Mg PO DAILY Abilify (Aripiprazole) 15 Mg Tablet 15 Mg PO BID I have reviewed the current psychotropics carefully including drug interactions. Risk benefit ratio favors no change other than as noted in my dictated progress note. Diagnosis: Problems: (1) Acute adjustment disorder (2) Anxiety disorder (3) Bipolar affective, mixed, sev w/ psych (4) Schizoaffective disorder, chronic condition with acute exacerbation (5) Schizophrenia, disorganized, subchronic with acute exacerbation JASS HUNG MD Dec 05, 2017 22:35
[2017-12-06 06:28] VITALS: BP 123/56
[2017-12-06] MEDS: HALOPERIDOL 5 MG TABLET PO SCH ×2 (08:02→20:19)
[2017-12-06] MEDS: POLYETHYLENE GLYCOL 3350 17 GM PACKET. PO SCH (08:02)
[2017-12-06] MEDS: DOCUSATE SODIUM 100 MG CAPSULE PO SCH (08:02)
[2017-12-06] MEDS: GABAPENTIN 300 MG CAPSULE. PO SCH ×3 (08:02→20:22)
[2017-12-06] MEDS: MAGNESIUM OXIDE 400 MG TABLET PO SCH (08:02)
[2017-12-06] MEDS: clonazePAM 0.5 MG TABLET PO SCH ×2 (08:02→20:25)
[2017-12-06] MEDS: MULTIVITAMIN with MINERAL TABLET. PO SCH (08:03)
[2017-12-06] MEDS: LACTOBACILLUS RHAMNOSUS GG 1 CAPSULE. PO SCH ×2 (08:03→20:22)
[2017-12-06] MEDS: ARIPiprazole 15 MG TABLET PO SCH ×2 (08:03→20:20)
[2017-12-06] MEDS: FAMOTIDINE 20 MG TABLET PO SCH ×2 (08:03→20:21)
[2017-12-06] MEDS: POTASSIUM CHLORIDE 10 MEQ TABLET.ER. PO SCH (08:03)
[2017-12-06] MEDS: FUROSEMIDE 40 MG TABLET PO SCH (08:03)
[2017-12-06] MEDS: amLODIPine BESYLATE 10 MG TABLET PO SCH (08:04)
[2017-12-06] MEDS: GEMFIBROZIL 600 MG TABLET. PO SCH ×3 (08:04→20:21)
[2017-12-06] MEDS: ASPIRIN ENTERIC COATED 81 MG TABLET.DR. PO SCH (08:04)
[2017-12-06] MEDS: SENNOSIDES 8.6 MG TABLET PO SCH ×2 (08:04→20:21)
[2017-12-06] MEDS: CETIRIZINE HCL 10 MG TABLET PO SCH (08:04)
[2017-12-06] MEDS: PIOGLITAZONE 15 MG TABLET. PO SCH (08:04)
[2017-12-06] MEDS: SIMETHICONE 80 MG TAB.CHEW PO SCH ×3 (08:04→20:18)
[2017-12-06] MEDS: LISINOPRIL 20 MG TABLET PO SCH (08:05)
[2017-12-06] MEDS: INSULIN GLARGINE 300 UNITS/3 ML INSULN.PEN. SQ SCH ×2 (08:11→20:27)
[2017-12-06] MEDS: INSULIN LISPRO 300 UNITS/3 ML INSULN.PEN. SQ SCH ×3 (08:17→17:00)
[2017-12-06 10:03] LABS: BASO % 0 % (0-3); EOS # 0.3 x10^3/uL (0.0-0.7); EOS % 4 % (0-3); HEMATOCRIT 32.9 % (36.0-47.0); HEMOGLOBIN 10.6 g/dL (12.0-15.5); LYMPH # 1.7 x10^3/uL (1.0-4.8); LYMPH % 24 % (24-48); MEAN CORPUSCULAR HEMOGLOBIN 27 pg (25-35); MEAN CORPUSCULAR HGB CONC 32 g/dL (31-37); MEAN CORPUSCULAR VOLUME 85 fL (79-100); MONO # 0.5 x10^3/uL (0.0-1.1); MONO % 7 % (0-9); NEUT # 4.7 x10^3uL (1.8-7.7); NEUT % 66 % (31-73); PLATELET COUNT 233 x10^3/uL (140-400); RED BLOOD COUNT 3.86 x10^6/uL (3.50-5.40); RED CELL DISTRIBUTION WIDTH 16.3 % (11.5-14.5); WHITE BLOOD COUNT 7.1 x10^3/uL (4.0-11.0)
[2017-12-06 10:13] LABS: ALBUMIN/GLOBULIN RATIO 0.8 (1.0-1.7); ALK PHOS 132 U/L (46-116); ALT (SGPT) 20 U/L (14-59); ANION GAP 6 (6-14); AST (SGOT) 16 U/L (15-37); BLOOD UREA NITROGEN 39 mg/dL (7-20); BUN/CREATININE RATIO 17 (6-20); CALCIUM 8.7 mg/dL (8.5-10.1); CARBON DIOXIDE 36 mmol/L (21-32); CHLORIDE 101 mmol/L (98-107); CREATININE 2.3 mg/dL (0.6-1.0); GFR 27.2; GLUCOSE 233 mg/dL (70-99); POTASSIUM 4.2 mmol/L (3.5-5.1); SODIUM 143 mmol/L (136-145); TOTAL BILIRUBIN 0.2 mg/dL (0.2-1.0); TOTAL PROTEIN 6.7 g/dL (6.4-8.2)
[2017-12-06 10:14] LABS: VAL ACID 67 mcg/mL (50-100)
[2017-12-06 16:16] VITALS: BP 131/55
[2017-12-06] MEDS: cloZAPine 25 MG TABLET PO SCH (20:20)
[2017-12-06] MEDS: cloNIDine HCL 0.1 MG TABLET PO SCH (20:22)
[2017-12-06] MEDS: DIVALPROEX ER 500 MG TAB.ER.24H PO SCH (20:23)
--- NOTE | 2017-12-06 22:23 | PDOC ---
Exam Note: Tay Note: Please also refer to the separate dictated note~for this date of service dictated separately.~Patient seen individually. Discussed the patient with Nursing staff reviewed the chart.~Reviewed interim history and current functioning. Reviewed vital signs,~Labs/ Radiology~and current medications noted below. Continue current treatment with the changes noted in the dictated addendum note Assessment: Vital Signs: Vital Signs Date Time Temp Pulse Resp B/P (MAP) Pulse Ox O2 Delivery O2 Flow Rate FiO2 12/06/17 20:22 100 131/55 12/06/17 16:16 96.9 18 96 12/04/17 12:45 Room Air I&O Intake and Output 12/06/17 07:00 Intake Total 960 ml Balance 960 ml Intake Oral 960 ml Labs: Laboratory Tests Test 12/06/17 07:35 12/06/17 09:29 12/06/17 11:48 12/06/17 16:09 Glucose (Fingerstick) 90 mg/dL (70-99) 302 mg/dL (70-99) H 260 mg/dL (70-99) H White Blood Count 7.1 x10^3/uL (4.0-11.0) # Red Blood Count 3.86 x10^6/uL (3.50-5.40) Hemoglobin 10.6 g/dL (12.0-15.5) L Hematocrit 32.9 % (36.0-47.0) L Mean Corpuscular Volume 85 fL (79-100) Mean Corpuscular Hemoglobin 27 pg (25-35) Mean Corpuscular Hemoglobin Concent 32 g/dL (31-37) Red Cell Distribution Width 16.3 % (11.5-14.5) H Platelet Count 233 x10^3/uL (140-400) Neutrophils (%) (Auto) 66 % (31-73) Lymphocytes (%) (Auto) 24 % (24-48) Monocytes (%) (Auto) 7 % (0-9) Eosinophils (%) (Auto) 4 % (0-3) H Basophils (%) (Auto) 0 % (0-3) Neutrophils # (Auto) 4.7 x10^3uL (1.8-7.7) Lymphocytes # (Auto) 1.7 x10^3/uL (1.0-4.8) Monocytes # (Auto) 0.5 x10^3/uL (0.0-1.1) Eosinophils # (Auto) 0.3 x10^3/uL (0.0-0.7) Basophils # (Auto) 0.0 x10^3/uL (0.0-0.2) Sodium Level 143 mmol/L (136-145) Potassium Level 4.2 mmol/L (3.5-5.1) Chloride Level 101 mmol/L (98-107) Carbon Dioxide Level 36 mmol/L (21-32) H Anion Gap 6 (6-14) Blood Urea Nitrogen 39 mg/dL (7-20) H Creatinine 2.3 mg/dL (0.6-1.0) H Estimated GFR (Cockcroft-Gault) 27.2 BUN/Creatinine Ratio 17 (6-20) Glucose Level 233 mg/dL (70-99) H Calcium Level 8.7 mg/dL (8.5-10.1) Total Bilirubin 0.2 mg/dL (0.2-1.0) Aspartate Amino Transferase (AST) 16 U/L (15-37) Alanine Aminotransferase (ALT) 20 U/L (14-59) Alkaline Phosphatase 132 U/L (46-116) H Total Protein 6.7 g/dL (6.4-8.2) Albumin 3.0 g/dL (3.4-5.0) L Albumin/Globulin Ratio 0.8 (1.0-1.7) L Valproic Acid Level 67 mcg/mL (50-100) Valproic Acid Last Dose Date 12/05/17 Valproic Acid Last Dose Time 2100 Test 12/06/17 19:30 Glucose (Fingerstick) 271 mg/dL (70-99) H Current Medications: Meds: Current Medications Ciprofloxacin Lactate 200 ml @ 200 mls/hr 1X ONCE IV ; Start 11/23/17 at 16:30 ; Stop 11/23/17 at 16:31; Status DC Ciprofloxacin (Cipro) 500 mg 1X ONCE PO Last administered on 11/23/17at 16:45; Start 11/23/17 at 17:00; Stop 11/23/17 at 17:01; Status DC Acetaminophen (Tylenol) 650 mg PRN Q6HRS PRN PO PAIN / TEMP; Start 11/23/17 at 17:45; Status Cancel Multi-Ingredient Ointment (Analgesic [place]) 1 yong PRN QID PRN TP MUSCLE PAIN; Start 11/23/17 at 17:45 Al Hydroxide/Mg Hydroxide (Mylanta Plus Xs) 15 ml PRN AFTMEALHC PRN PO DYSPEPSIA; Start 11/23/17 at 17:45 Magnesium Hydroxide (Milk Of Magnesia) 2,400 mg PRN QHS PRN PO CONSTIPATION Last administered on 12/05/17 14:09; Start 11/23/17 at 17:45 Aripiprazole (Abilify) 15 mg BID PO Last administered on 12/06/17 20:20; Start 11/24/17 at 09:00 Clonazepam (KlonoPIN) 0.5 mg BID PO Last administered on 12/06/17 08:02; Start 11/24/17 at 09:00; Stop 12/06/17 at 18:24; Status DC Haloperidol Lactate (Haldol) 5 mg PRN Q4HRS PRN IM AGITATION; Start 11/23/17 at 22:15 Haloperidol (Haldol) 20 mg BID PO Last administered on 11/27/17 08:57; Start 11/24/17 at 09:00; Stop 11/27/17 at 18:23; Status DC Acetaminophen (Tylenol) 500 mg PRN Q6HRS PRN PO PAIN Last administered on 09:16; Start 11/23/17 at 22:15 Amlodipine Besylate (Norvasc) 10 mg DAILY PO Last administered on 12/05/17 09: 20; Start 11/24/17 at 09:00 Aspirin (Aspirin Enteric Coated) 81 mg DAILY PO Last administered on 12/06/17 08:04; Start 11/24/17 at 09:00 Cetirizine HCl (ZyrTEC) 10 mg DAILY PO Last administered on 12/06/17 08:04; Start 11/24/17 at 09:00 Clonidine HCl (Catapres) 0.1 mg HS PO Last administered on 12/06/17 20:22; Start 11/24/17 at 21:00 Docusate Sodium (Colace) 100 mg DAILY PO Last administered on 12/06/17 08:02; Start 11/24/17 at 09:00 Docusate Sodium (Colace) 100 mg PRN DAILY PRN PO CONSTIPATION; Start 11/23/17 at 22:15 Erythromycin (E-Mycin) 250 mg TIDPC PO Last administered on 11/25/17 16:39; Start 11/24/17 at 08:30; Stop 11/25/17 at 18:49; Status DC Famotidine (Pepcid) 20 mg BID PO Last administered on 12/06/17 20:21; Start at 09:00 Furosemide (Lasix) 40 mg DAILY PO Last administered on 12/06/17 08:03; Start 11/24/17 at 09:00 Gabapentin (Neurontin) 300 mg BID PO Last administered on 12/03/17 08:10; Start 11/24/17 at 09:00; Stop 12/03/17 at 19:08; Status DC Gemfibrozil (Lopid) 600 mg BIDWMEALS PO Last administered on 12/06/17 20:21; Start 11/24/17 at 08:00 Glucagon (Glucagen Kit) 1 mg PRN 1X PRN SQ hypoglycemia; Start 11/23/17 at 22: 15 Insulin Human Lispro (HumaLOG) 4 units DAILYWBKFT SQ Last administered on 08:17; Start 11/24/17 at 08:00 Insulin Human Lispro (HumaLOG) 8 units DAILYBFRLUN SQ Last administered on 12/06 13:01; Start 11/24/17 at 11:30 Insulin Human Lispro (HumaLOG) 10 units DAILYBFRSUP SQ Last administered on 17:00; Start 11/24/17 at 17:00 Insulin Glargine (Lantus) 16 units HS SQ Last administered on 12/06/17 20:27; Start 11/23/17 at 23:00 Insulin Glargine (Lantus) 26 units DAILYWBKFT SQ Last administered on 08:11; Start 11/24/17 at 08:00 Lisinopril (Prinivil) 20 mg DAILY PO Last administered on 12/05/17 09:22; Start 11/24/17 at 09:00 Magnesium Oxide (Magnesium Oxide) 400 mg DAILY PO Last administered on 08:02; Start 11/24/17 at 09:00 Sennosides (Senna) 8.6 mg BID PO Last administered on 12/06/17 20:21; Start at 09:00 Tramadol HCl (Ultram) 50 mg PRN Q6HRS PRN PO PAIN Last administered on 10:06; Start 11/23/17 at 22:15 Fluticasone Propionate (Flonase) 2 spray PRN DAILY PRN NS ALLERGIES Last administered on 11/25/17 00:29; Start 11/24/17 at 09:00 Non-Formulary Medication (Gly/Dimeth/ Petrolat,Wht/ Water (Moisturizing Cream)) 1 yong PRN PRN TP skin protectant; Start 11/23/17 at 22:15; Status UNV Non-Formulary Medication (Mag Hydrox/Al Hydrox/Simeth (Mintox Suspension)) 15 ml PRN BID PRN PO gerd; Start 11/23/17 at 22:15; Status UNV Non-Formulary Medication (Magnesium Hydroxide (Milk Of Magnesia)) 2,400 mg PRN DAILY PRN PO CONSTIPATION; Start 11/23/17 at 22:15; Status UNV Multivitamins/ Calcium (Thera-M Plus) 1 tab DAILY PO Last administered on 08:03; Start 11/24/17 at 09:00 Pioglitazone HCl (Actos) 30 mg DAILY PO Last administered on 12/06/17 08:04; Start 11/24/17 at 09:00 Potassium Chloride (Klor-Con) 10 meq DAILY PO Last administered on 12/06/17 08 :03; Start 11/24/17 at 09:00 Simethicone (Gas-X) 120 mg TID PO Last administered on 12/06/17 20:18; Start 11/24/17 at 09:00 Divalproex Sodium (Depakote Er) 500 mg HS PO Last administered on 11/26/17 19: 33; Start 11/24/17 at 21:00; Stop 11/27/17 at 18:23; Status DC Phenylephrine/ Shark Liver Oil (Preparation H) 1 supp PRN Q8HRS PRN CO RECTAL PAIN Last administered on 11/30/17 09:03; Start 11/24/17 at 19:00 Lactobacillus Rhamnosus (Culturelle) 1 cap BID PO Last administered on 20:22; Start 11/25/17 at 21:00 Fluvoxamine Maleate (Luvox) 25 mg HS PO Last administered on 12/01/17at 20:56; Start 11/25/17 at 21:00; Stop 12/02/17 at 18:28; Status DC Olanzapine (ZyPREXA ZYDIS) 2.5 mg PRN Q2HR PRN PO PSYCHOSIS Last administered on 12/03/17 12:31; Start 11/25/17 at 18:15 Cyanocobalamin (Vitamin B-12) 1,000 mcg QMONTH IM ; Start 11/26/17 at 09:00; Stop 11/26/17 at 09:00; Status DC Divalproex Sodium (Depakote Er) 1,000 mg HS PO Last administered on 11/29/17 19:22; Start 11/27/17 at 21:00; Stop 11/30/17 at 18:31; Status DC Haloperidol (Haldol) 20 mg DAILY PO Last administered on 12/05/17 09:21; Start 11/28/17 at 09:00; Stop 12/05/17 at 15:45; Status DC Haloperidol (Haldol) 15 mg HS PO Last administered on 12/04/17 19:20; Start at 21:00; Stop 12/05/17 at 15:45; Status DC Polyethylene Glycol (miraLAX) 17 gm DAILY PO ; Start 11/30/17 at 12:30; Stop at 12:30; Status DC Polyethylene Glycol (miraLAX) 17 gm DAILY PO Last administered on 12/06/17at 08: 02; Start 11/30/17 at 09:00 Divalproex Sodium (Depakote Er) 1,500 mg HS PO Last administered on 12/06/17 20:23; Start 11/30/17 at 21:00 Fluvoxamine Maleate (Luvox) 50 mg HS PO Last administered on 12/06/17at 20:20; Start 12/02/17 at 21:00 Gabapentin (Neurontin) 300 mg TID PO Last administered on 12/06/17 20:22; Start 12/03/17 at 21:00 Clozapine (Clozaril) 25 mg HS PO Last administered on 12/06/17 20:20; Start at 21:00 Haloperidol (Haldol) 15 mg BID PO Last administered on 12/06/17 20:19; Start 12/05/17 at 21:00 Clonazepam (KlonoPIN) 0.25 mg BID PO Last administered on 12/06/17at 20:25; Start 12/06/17 at 21:00; Stop 12/09/17 at 22:00 Active Scripts Active Reported Tramadol Hcl (Tramadol HCl) 50 Mg Tablet 50 Mg PO PRN Q6HRS PRN Multi Vitamin Daily (Multivitamin) 1 Each Tablet 1 Tab PO DAILY Simethicone 125 Mg Capsule 125 Mg PO TID Senna Lax (Sennosides) 8.6 Mg Tablet 8.6 Mg PO BID Potassium Chloride 10 Meq Tablet.er 10 Meq PO DAILY Actos (Pioglitazone Hcl) 30 Mg Tablet 30 Mg PO DAILY Pepcid (Famotidine) 20 Mg Tablet 20 Mg PO BID Novolog Flexpen (Insulin Aspart) 100 Unit/1 Ml Insuln.pen 8 Units SQ DAILYBFRLUN Novolog Flexpen (Insulin Aspart) 100 Unit/1 Ml Insuln.pen 4 Units SQ DAILYWBKFT Novolog Flexpen (Insulin Aspart) 100 Unit/1 Ml Insuln.pen 10 Unit SQ DAILYBFRSUP Moisturizing Cream (Gly/Dimeth/Petrolat,Wht/Water) 453 Gm Cream..g. 1 Yong TP PRN PRN Mintox Suspension (Mag Hydrox/Al Hydrox/Simeth) 355 Ml Oral.susp 15 Ml PO PRN BID PRN Milk Of Magnesia (Magnesium Hydroxide) 2,400 Mg/10 Ml Oral.susp 2,400 Mg PO PRN DAILY PRN Mapap (Acetaminophen) 500 Mg Tablet 500 Mg PO PRN Q6HRS PRN Magnesium Oxide 400 Mg Tablet 500 Mg PO DAILY Lisinopril 20 Mg Tablet 20 Mg PO DAILY Lipitor (Atorvastatin Calcium) 10 Mg Tablet 10 Mg PO QHS Levemir Flextouch (Insulin Detemir) 100 Unit/1 Ml Insuln.pen 26 Units SQ DAILYWBKFT Levemir Flextouch (Insulin Detemir) 100 Unit/1 Ml Insuln.pen 16 Units SQ HS Lasix (Furosemide) 40 Mg Tablet 40 Mg PO DAILY Haloperidol 10 Mg Tablet 20 Mg PO BID Haloperidol Lactate 5 Mg/1 Ml Vial 5 Mg IJ PRN Q4HRS PRN Glucagen (Glucagon,Human Recombinant) 1 Mg/1 Ml Vial 1 Mg IJ PRN PRN Gemfibrozil 600 Mg Tablet 600 Mg PO BID Gabapentin 300 Mg Capsule 300 Mg PO BID Flonase Allergy Relief (Fluticasone Propionate) 9.9 Ml [place].susp 2 Sprays NS PRN PRN Erythromycin (Erythromycin Base) 250 Mg Tablet 250 Mg PO TIDPC Docusate Sodium 100 Mg Capsule 100 Mg PO DAILY Docusate Sodium 100 Mg Capsule 100 Mg PO PRN DAILY PRN Clonidine Hcl 0.1 Mg Tablet 0.1 Mg PO HS Clonazepam 0.5 Mg Tablet 0.5 Mg PO BID Cetirizine Hcl 10 Mg Tablet 10 Mg PO DAILY Aspirin Ec (Aspirin) 81 Mg Tablet.dr 81 Mg PO DAILY Amlodipine Besylate 10 Mg Tablet 10 Mg PO DAILY Abilify (Aripiprazole) 15 Mg Tablet 15 Mg PO BID I have reviewed the current psychotropics carefully including drug interactions. Risk benefit ratio favors no change other than as noted in my dictated progress note. Diagnosis: Problems: (1) Peripheral neuropathy (2) UTI (urinary tract infection) (3) Skin tear (4) Acute adjustment disorder (5) Anxiety disorder (6) Bipolar affective, mixed, sev w/ psych (7) Schizoaffective disorder, chronic condition with acute exacerbation (8) Schizophrenia, disorganized, subchronic with acute exacerbation JASS HUNG MD Dec 06, 2017 22:23
--- NOTE | 2017-12-06 23:44 | PN ---
DATE: 12/04/2017 This is a late entry of 12/04/2017 covers elements not covered in my initial note. SUBJECTIVE: I met with the patient in the evenings. The patient slept 10 hours, somewhat sedated during the day. Complains of chronic pain, attention-seeking, anxious, wanting a wheelchair. She is back to the nursing station less frequently. We will check a valproic acid level on 12/06/2017 along with CBC and CMP. REVIEW OF SYSTEMS: No CV, , pulmonary, eye system symptoms on review. Valproic acid level is 51. MENTAL STATUS EXAM: Oriented to herself and situation. Speech coherent, abstraction fair, computation impaired, language function intact, attention span short. Mood and affect somewhat anxious, labile. No suicidal or homicidal ideation. LABORATORY DATA: Reviewed. IMPRESSION: Unchanged from initial note. PLAN: As noted above. MAN Prosper HUNG MD DR: KATIANA/alicia JOB#: [id number] / [id number]
[2017-12-07 06:16] VITALS: BP 138/66
[2017-12-07] MEDS: MULTIVITAMIN with MINERAL TABLET. PO SCH (07:59)
[2017-12-07] MEDS: POTASSIUM CHLORIDE 10 MEQ TABLET.ER. PO SCH (07:59)
[2017-12-07] MEDS: HALOPERIDOL 5 MG TABLET PO SCH ×2 (07:59→19:40)
[2017-12-07] MEDS: amLODIPine BESYLATE 10 MG TABLET PO SCH (07:59)
[2017-12-07] MEDS: FAMOTIDINE 20 MG TABLET PO SCH ×2 (07:59→19:30)
[2017-12-07] MEDS: GABAPENTIN 300 MG CAPSULE. PO SCH ×3 (07:59→19:29)
[2017-12-07] MEDS: SENNOSIDES 8.6 MG TABLET PO SCH ×2 (07:59→19:29)
[2017-12-07] MEDS: DOCUSATE SODIUM 100 MG CAPSULE PO SCH (07:59)
[2017-12-07] MEDS: FUROSEMIDE 40 MG TABLET PO SCH (08:00)
[2017-12-07] MEDS: MAGNESIUM OXIDE 400 MG TABLET PO SCH (08:00)
[2017-12-07] MEDS: clonazePAM 0.5 MG TABLET PO SCH ×2 (08:03→19:40)
[2017-12-07] MEDS: PIOGLITAZONE 15 MG TABLET. PO SCH (08:04)
[2017-12-07] MEDS: SIMETHICONE 80 MG TAB.CHEW PO SCH ×3 (08:04→19:29)
[2017-12-07] MEDS: ASPIRIN ENTERIC COATED 81 MG TABLET.DR. PO SCH (08:04)
[2017-12-07] MEDS: ARIPiprazole 15 MG TABLET PO SCH ×2 (08:04→19:30)
[2017-12-07] MEDS: CETIRIZINE HCL 10 MG TABLET PO SCH (08:04)
[2017-12-07] MEDS: LISINOPRIL 20 MG TABLET PO SCH (08:05)
[2017-12-07] MEDS: POLYETHYLENE GLYCOL 3350 17 GM PACKET. PO SCH (08:05)
[2017-12-07] MEDS: LACTOBACILLUS RHAMNOSUS GG 1 CAPSULE. PO SCH ×2 (08:05→19:29)
[2017-12-07] MEDS: INSULIN GLARGINE 300 UNITS/3 ML INSULN.PEN. SQ SCH ×2 (08:12→19:46)
[2017-12-07] MEDS: INSULIN LISPRO 300 UNITS/3 ML INSULN.PEN. SQ SCH ×3 (08:13→16:55)
[2017-12-07 08:22] LABS: BILIRUBIN,URINE NEG (NEG); CLARITY,URINE CLEAR; COLOR,URINE YELLOW; GLUCOSE,URINE NEG (NEG); NITRITE,URINE NEG (NEG); UROBILINOGEN,URINE 0.2 mg/dL (0.2 mg/dL)
[2017-12-07 08:23] LABS: BACTERIA,URINE FEW /HPF (0-FEW); RBC,URINE 0 /HPF (0-2); SQUAMOUS EPITHELIAL CELL,UR FEW /LPF
[2017-12-07 16:15] VITALS: BP 180/62
[2017-12-07] MEDS: GEMFIBROZIL 600 MG TABLET. PO SCH (16:53)
[2017-12-07] MEDS: cloZAPine 25 MG TABLET PO SCH (19:29)
[2017-12-07] MEDS: cloNIDine HCL 0.1 MG TABLET PO SCH (19:30)
[2017-12-07] MEDS: DIVALPROEX ER 500 MG TAB.ER.24H PO SCH (19:30)
--- NOTE | 2017-12-07 21:35 | PDOC ---
Exam Note: Tay Note: Please also refer to the separate dictated note~for this date of service dictated separately.~Patient seen individually. Discussed the patient with Nursing staff reviewed the chart.~Reviewed interim history and current functioning. Reviewed vital signs,~Labs/ Radiology~and current medications noted below. Continue current treatment with the changes noted in the dictated addendum note Assessment: Vital Signs: Vital Signs Date Time Temp Pulse Resp B/P (MAP) Pulse Ox O2 Delivery O2 Flow Rate FiO2 12/07/17 19:30 85 180/62 12/07/17 16:15 97.0 18 98 12/04/17 12:45 Room Air I&O Intake and Output 12/07/17 07:00 Intake Total 2900 ml Balance 2900 ml Intake Oral 2900 ml # Voids 2 Labs: Laboratory Tests Test 12/07/17 06:55 12/07/17 07:23 12/07/17 11:13 12/07/17 16:29 Urine Collection Type Unknown Urine Color Yellow Urine Clarity Clear Urine pH 7.5 Urine Specific [place] 1.020 Urine Protein >100 mg/dl (NEG-TRACE) Urine Glucose (UA) Neg mg/dL (NEG) Urine Ketones (Stick) Neg mg/dL (NEG) Urine Blood Neg (NEG) Urine Nitrite Neg (NEG) Urine Bilirubin Neg (NEG) Urine Urobilinogen Dipstick 0.2 mg/dL (0.2 mg/dL) Urine Leukocyte Esterase Trace (NEG) Urine RBC 0 /HPF (0-2) Urine WBC 1-4 /HPF (0-4) Urine Squamous Epithelial Cells Few /LPF Urine Bacteria Few /HPF (0-FEW) Urine Mucus Slight /LPF Glucose (Fingerstick) 138 mg/dL (70-99) H 178 mg/dL (70-99) H 275 mg/dL (70-99) H Test 12/07/17 19:13 Glucose (Fingerstick) 196 mg/dL (70-99) H Current Medications: Meds: Current Medications Ciprofloxacin Lactate 200 ml @ 200 mls/hr 1X ONCE IV ; Start 11/23/17 at 16:30 ; Stop 11/23/17 at 16:31; Status DC Ciprofloxacin (Cipro) 500 mg 1X ONCE PO Last administered on 11/23/17at 16:45; Start 11/23/17 at 17:00; Stop 11/23/17 at 17:01; Status DC Acetaminophen (Tylenol) 650 mg PRN Q6HRS PRN PO PAIN / TEMP; Start 11/23/17 at 17:45; Status Cancel Multi-Ingredient Ointment (Analgesic [place]) 1 yong PRN QID PRN TP MUSCLE PAIN; Start 11/23/17 at 17:45 Al Hydroxide/Mg Hydroxide (Mylanta Plus Xs) 15 ml PRN AFTMEALHC PRN PO DYSPEPSIA; Start 11/23/17 at 17:45 Magnesium Hydroxide (Milk Of Magnesia) 2,400 mg PRN QHS PRN PO CONSTIPATION Last administered on 12/05/17 14:09; Start 11/23/17 at 17:45 Aripiprazole (Abilify) 15 mg BID PO Last administered on 12/07/17 19:30; Start 11/24/17 at 09:00 Clonazepam (KlonoPIN) 0.5 mg BID PO Last administered on 12/06/17 08:02; Start 11/24/17 at 09:00; Stop 12/06/17 at 18:24; Status DC Haloperidol Lactate (Haldol) 5 mg PRN Q4HRS PRN IM AGITATION; Start 11/23/17 at 22:15 Haloperidol (Haldol) 20 mg BID PO Last administered on 11/27/17 08:57; Start 11/24/17 at 09:00; Stop 11/27/17 at 18:23; Status DC Acetaminophen (Tylenol) 500 mg PRN Q6HRS PRN PO PAIN Last administered on 09:16; Start 11/23/17 at 22:15 Amlodipine Besylate (Norvasc) 10 mg DAILY PO Last administered on 12/07/17 07: 59; Start 11/24/17 at 09:00 Aspirin (Aspirin Enteric Coated) 81 mg DAILY PO Last administered on 12/07/17 08:04; Start 11/24/17 at 09:00 Cetirizine HCl (ZyrTEC) 10 mg DAILY PO Last administered on 12/07/17 08:04; Start 11/24/17 at 09:00 Clonidine HCl (Catapres) 0.1 mg HS PO Last administered on 12/07/17 19:30; Start 11/24/17 at 21:00 Docusate Sodium (Colace) 100 mg DAILY PO Last administered on 12/07/17 07:59; Start 11/24/17 at 09:00 Docusate Sodium (Colace) 100 mg PRN DAILY PRN PO CONSTIPATION; Start 11/23/17 at 22:15 Erythromycin (E-Mycin) 250 mg TIDPC PO Last administered on 11/25/17 16:39; Start 11/24/17 at 08:30; Stop 11/25/17 at 18:49; Status DC Famotidine (Pepcid) 20 mg BID PO Last administered on 12/07/17 19:30; Start at 09:00 Furosemide (Lasix) 40 mg DAILY PO Last administered on 12/07/17 08:00; Start 11/24/17 at 09:00 Gabapentin (Neurontin) 300 mg BID PO Last administered on 12/03/17 08:10; Start 11/24/17 at 09:00; Stop 12/03/17 at 19:08; Status DC Gemfibrozil (Lopid) 600 mg BIDWMEALS PO Last administered on 12/07/17 16:53; Start 11/24/17 at 08:00 Glucagon (Glucagen Kit) 1 mg PRN 1X PRN SQ hypoglycemia; Start 11/23/17 at 22: 15 Insulin Human Lispro (HumaLOG) 4 units DAILYWBKFT SQ Last administered on 08:13; Start 11/24/17 at 08:00 Insulin Human Lispro (HumaLOG) 8 units DAILYBFRLUN SQ Last administered on 12/07 13:08; Start 11/24/17 at 11:30 Insulin Human Lispro (HumaLOG) 10 units DAILYBFRSUP SQ Last administered on 16:55; Start 11/24/17 at 17:00 Insulin Glargine (Lantus) 16 units HS SQ Last administered on 12/07/17 19:46; Start 11/23/17 at 23:00 Insulin Glargine (Lantus) 26 units DAILYWBKFT SQ Last administered on 08:12; Start 11/24/17 at 08:00 Lisinopril (Prinivil) 20 mg DAILY PO Last administered on 12/07/17 08:05; Start 11/24/17 at 09:00 Magnesium Oxide (Magnesium Oxide) 400 mg DAILY PO Last administered on 08:00; Start 11/24/17 at 09:00 Sennosides (Senna) 8.6 mg BID PO Last administered on 12/07/17 19:29; Start at 09:00 Tramadol HCl (Ultram) 50 mg PRN Q6HRS PRN PO PAIN Last administered on 10:06; Start 11/23/17 at 22:15 Fluticasone Propionate (Flonase) 2 spray PRN DAILY PRN NS ALLERGIES Last administered on 11/25/17 00:29; Start 11/24/17 at 09:00 Non-Formulary Medication (Gly/Dimeth/ Petrolat,Wht/ Water (Moisturizing Cream)) 1 yong PRN PRN TP skin protectant; Start 11/23/17 at 22:15; Status UNV Non-Formulary Medication (Mag Hydrox/Al Hydrox/Simeth (Mintox Suspension)) 15 ml PRN BID PRN PO gerd; Start 11/23/17 at 22:15; Status UNV Non-Formulary Medication (Magnesium Hydroxide (Milk Of Magnesia)) 2,400 mg PRN DAILY PRN PO CONSTIPATION; Start 11/23/17 at 22:15; Status UNV Multivitamins/ Calcium (Thera-M Plus) 1 tab DAILY PO Last administered on 07:59; Start 11/24/17 at 09:00 Pioglitazone HCl (Actos) 30 mg DAILY PO Last administered on 12/07/17 08:04; Start 11/24/17 at 09:00 Potassium Chloride (Klor-Con) 10 meq DAILY PO Last administered on 12/07/17 07 :59; Start 11/24/17 at 09:00 Simethicone (Gas-X) 120 mg TID PO Last administered on 12/07/17 19:29; Start 11/24/17 at 09:00 Divalproex Sodium (Depakote Er) 500 mg HS PO Last administered on 11/26/17 19: 33; Start 11/24/17 at 21:00; Stop 11/27/17 at 18:23; Status DC Phenylephrine/ Shark Liver Oil (Preparation H) 1 supp PRN Q8HRS PRN NE RECTAL PAIN Last administered on 11/30/17 09:03; Start 11/24/17 at 19:00 Lactobacillus Rhamnosus (Culturelle) 1 cap BID PO Last administered on 19:29; Start 11/25/17 at 21:00 Fluvoxamine Maleate (Luvox) 25 mg HS PO Last administered on 12/01/17 20:56; Start 11/25/17 at 21:00; Stop 12/02/17 at 18:28; Status DC Olanzapine (ZyPREXA ZYDIS) 2.5 mg PRN Q2HR PRN PO PSYCHOSIS Last administered on 12/03/17 12:31; Start 11/25/17 at 18:15 Cyanocobalamin (Vitamin B-12) 1,000 mcg QMONTH IM ; Start 11/26/17 at 09:00; Stop 11/26/17 at 09:00; Status DC Divalproex Sodium (Depakote Er) 1,000 mg HS PO Last administered on 11/29/17 19:22; Start 11/27/17 at 21:00; Stop 11/30/17 at 18:31; Status DC Haloperidol (Haldol) 20 mg DAILY PO Last administered on 12/05/17 09:21; Start 11/28/17 at 09:00; Stop 12/05/17 at 15:45; Status DC Haloperidol (Haldol) 15 mg HS PO Last administered on 12/04/17 19:20; Start at 21:00; Stop 12/05/17 at 15:45; Status DC Polyethylene Glycol (miraLAX) 17 gm DAILY PO ; Start 11/30/17 at 12:30; Stop at 12:30; Status DC Polyethylene Glycol (miraLAX) 17 gm DAILY PO Last administered on 12/07/17 08: 05; Start 11/30/17 at 09:00 Divalproex Sodium (Depakote Er) 1,500 mg HS PO Last administered on 12/07/17 19:30; Start 11/30/17 at 21:00 Fluvoxamine Maleate (Luvox) 50 mg HS PO Last administered on 12/07/17 19:29; Start 12/02/17 at 21:00 Gabapentin (Neurontin) 300 mg TID PO Last administered on 12/07/17 19:29; Start 12/03/17 at 21:00 Clozapine (Clozaril) 25 mg HS PO Last administered on 12/07/17 19:29; Start at 21:00 Haloperidol (Haldol) 15 mg BID PO Last administered on 12/07/17 19:40; Start 12/05/17 at 21:00 Clonazepam (KlonoPIN) 0.25 mg BID PO Last administered on 12/07/17 19:40; Start 12/06/17 at 21:00; Stop 12/09/17 at 22:00 Artificial Tears (Refresh Classic) 1 drop PRN Q15MIN PRN OU DRY EYE; Start at 15:45 Trazodone HCl (Desyrel) 12.5 mg TID@0900,1300,1700 PO ; Start 12/08/17 at 09:00 Active Scripts Active Reported Tramadol Hcl (Tramadol HCl) 50 Mg Tablet 50 Mg PO PRN Q6HRS PRN Multi Vitamin Daily (Multivitamin) 1 Each Tablet 1 Tab PO DAILY Simethicone 125 Mg Capsule 125 Mg PO TID Senna Lax (Sennosides) 8.6 Mg Tablet 8.6 Mg PO BID Potassium Chloride 10 Meq Tablet.er 10 Meq PO DAILY Actos (Pioglitazone Hcl) 30 Mg Tablet 30 Mg PO DAILY Pepcid (Famotidine) 20 Mg Tablet 20 Mg PO BID Novolog Flexpen (Insulin Aspart) 100 Unit/1 Ml Insuln.pen 8 Units SQ DAILYBFRLUN Novolog Flexpen (Insulin Aspart) 100 Unit/1 Ml Insuln.pen 4 Units SQ DAILYWBKFT Novolog Flexpen (Insulin Aspart) 100 Unit/1 Ml Insuln.pen 10 Unit SQ DAILYBFRSUP Moisturizing Cream (Gly/Dimeth/Petrolat,Wht/Water) 453 Gm Cream..g. 1 Yong TP PRN PRN Mintox Suspension (Mag Hydrox/Al Hydrox/Simeth) 355 Ml Oral.susp 15 Ml PO PRN BID PRN Milk Of Magnesia (Magnesium Hydroxide) 2,400 Mg/10 Ml Oral.susp 2,400 Mg PO PRN DAILY PRN Mapap (Acetaminophen) 500 Mg Tablet 500 Mg PO PRN Q6HRS PRN Magnesium Oxide 400 Mg Tablet 500 Mg PO DAILY Lisinopril 20 Mg Tablet 20 Mg PO DAILY Lipitor (Atorvastatin Calcium) 10 Mg Tablet 10 Mg PO QHS Levemir Flextouch (Insulin Detemir) 100 Unit/1 Ml Insuln.pen 26 Units SQ DAILYWBKFT Levemir Flextouch (Insulin Detemir) 100 Unit/1 Ml Insuln.pen 16 Units SQ HS Lasix (Furosemide) 40 Mg Tablet 40 Mg PO DAILY Haloperidol 10 Mg Tablet 20 Mg PO BID Haloperidol Lactate 5 Mg/1 Ml Vial 5 Mg IJ PRN Q4HRS PRN Glucagen (Glucagon,Human Recombinant) 1 Mg/1 Ml Vial 1 Mg IJ PRN PRN Gemfibrozil 600 Mg Tablet 600 Mg PO BID Gabapentin 300 Mg Capsule 300 Mg PO BID Flonase Allergy Relief (Fluticasone Propionate) 9.9 Ml [place].susp 2 Sprays NS PRN PRN Erythromycin (Erythromycin Base) 250 Mg Tablet 250 Mg PO TIDPC Docusate Sodium 100 Mg Capsule 100 Mg PO DAILY Docusate Sodium 100 Mg Capsule 100 Mg PO PRN DAILY PRN Clonidine Hcl 0.1 Mg Tablet 0.1 Mg PO HS Clonazepam 0.5 Mg Tablet 0.5 Mg PO BID Cetirizine Hcl 10 Mg Tablet 10 Mg PO DAILY Aspirin Ec (Aspirin) 81 Mg Tablet.dr 81 Mg PO DAILY Amlodipine Besylate 10 Mg Tablet 10 Mg PO DAILY Abilify (Aripiprazole) 15 Mg Tablet 15 Mg PO BID I have reviewed the current psychotropics carefully including drug interactions. Risk benefit ratio favors no change other than as noted in my dictated progress note. Diagnosis: Problems: (1) Peripheral neuropathy (2) UTI (urinary tract infection) (3) Skin tear (4) Acute adjustment disorder (5) Anxiety disorder (6) Bipolar affective, mixed, sev w/ psych (7) Schizoaffective disorder, chronic condition with acute exacerbation (8) Schizophrenia, disorganized, subchronic with acute exacerbation JASS HUNG MD Dec 07, 2017 21:34
--- NOTE | 2017-12-08 03:05 | PN ---
DATE: 12/05/2017 This is a late entry for 12/05/2017 covers elements not covered in my initial note of 12/05/2017. SUBJECTIVE: I met with the patient evening of 12/05/2017. The patient slept 9-1/2 hours, somewhat drowsy in the day. REVIEW OF SYSTEMS: No CV, , pulmonary, eye, ENT system symptoms on review. MENTAL STATUS EXAM: Oriented to herself and situation. Speech has some latency, coherent. Abstraction fair, computation impaired, language function intact. Mood and affect remain somewhat labile, but less so than before. LABORATORY DATA: Reviewed. IMPRESSION: Unchanged from initial note. PLAN: Reduce Haldol from a total of 35 mg a day down to 30 mg a day. Continue rest unchanged and Clozaril was added 25 mg p.o. at bedtime. MAN Prosper HUNG MD DR: KATIANA/alicia JOB#: [id number] / [id number]
--- NOTE | 2017-12-08 04:25 | PN ---
DATE: 12/06/2017 PSYCHIATRIC PROGRESS NOTE This late entry 12/06/2017 covers elements not covered in my initial note of 12/06/2017. SUBJECTIVE: I met with the patient in the evening. The patient slept 8 hours, somewhat drowsy, confused more so than days previously fiddling with things. WBC is increased from 4-7.8. We will check a UA. Defer to Dr. Bolton for medical management. REVIEW OF SYSTEMS: No CV, , pulmonary, eye, ENT system symptoms on review. Reliability varies. MENTAL STATUS EXAM: Oriented to herself and situation. Speech is coherent, abstraction fair, computation impaired, language function intact. Mood and affect somewhat labile, remains intermittently psychotic. LABORATORIES: Reviewed. IMPRESSION: Schizoaffective disorder, bipolar type, mixed. PLAN: Klonopin is currently 0.5 mg b.i.d., reduced to 0.25 mg twice a day for 3 days and then stop it. Maintain rest of the psychotropics. Clozaril was initiated. Follow labs, absolute neutrophil counts, CBC and Clozaril adjust as indicated. MAN Prosper HUNG MD DR: KATIANA/alicia JOB#: [id number] / [id number]
[2017-12-08 06:31] VITALS: BP 131/61
[2017-12-08] MEDS: PIOGLITAZONE 15 MG TABLET. PO SCH (07:52)
[2017-12-08] MEDS: FAMOTIDINE 20 MG TABLET PO SCH ×2 (07:52→19:31)
[2017-12-08] MEDS: POTASSIUM CHLORIDE 10 MEQ TABLET.ER. PO SCH (07:54)
[2017-12-08] MEDS: GEMFIBROZIL 600 MG TABLET. PO SCH ×2 (07:54→16:42)
[2017-12-08] MEDS: MAGNESIUM OXIDE 400 MG TABLET PO SCH (07:54)
[2017-12-08] MEDS: ASPIRIN ENTERIC COATED 81 MG TABLET.DR. PO SCH (07:54)
[2017-12-08] MEDS: amLODIPine BESYLATE 10 MG TABLET PO SCH (07:54)
[2017-12-08] MEDS: CETIRIZINE HCL 10 MG TABLET PO SCH (07:54)
[2017-12-08] MEDS: DOCUSATE SODIUM 100 MG CAPSULE PO SCH (07:55)
[2017-12-08] MEDS: LISINOPRIL 20 MG TABLET PO SCH (07:55)
[2017-12-08] MEDS: MULTIVITAMIN with MINERAL TABLET. PO SCH (07:55)
[2017-12-08] MEDS: HALOPERIDOL 5 MG TABLET PO SCH ×2 (07:55→19:31)
[2017-12-08] MEDS: FUROSEMIDE 40 MG TABLET PO SCH (07:55)
[2017-12-08] MEDS: ARIPiprazole 15 MG TABLET PO SCH ×2 (07:55→19:32)
[2017-12-08] MEDS: GABAPENTIN 300 MG CAPSULE. PO SCH ×3 (07:55→19:31)
[2017-12-08] MEDS: LACTOBACILLUS RHAMNOSUS GG 1 CAPSULE. PO SCH ×2 (07:55→19:31)
[2017-12-08] MEDS: SENNOSIDES 8.6 MG TABLET PO SCH ×2 (07:55→19:33)
[2017-12-08] MEDS: POLYETHYLENE GLYCOL 3350 17 GM PACKET. PO SCH (07:56)
[2017-12-08] MEDS: SIMETHICONE 80 MG TAB.CHEW PO SCH ×3 (07:56→19:32)
[2017-12-08] MEDS: clonazePAM 0.5 MG TABLET PO SCH ×2 (07:58→19:37)
[2017-12-08] MEDS: traZODone 50 MG TABLET. PO SCH ×3 (07:58→16:42)
[2017-12-08 08:10] LABS: BASO % 0 % (0-3); EOS # 0.3 x10^3/uL (0.0-0.7); EOS % 6 % (0-3); HEMATOCRIT 35.6 % (36.0-47.0); HEMOGLOBIN 11.4 g/dL (12.0-15.5); LYMPH # 2.6 x10^3/uL (1.0-4.8); LYMPH % 48 % (24-48); MEAN CORPUSCULAR HEMOGLOBIN 27 pg (25-35); MEAN CORPUSCULAR HGB CONC 32 g/dL (31-37); MEAN CORPUSCULAR VOLUME 85 fL (79-100); MONO # 0.5 x10^3/uL (0.0-1.1); MONO % 8 % (0-9); NEUT # 2.1 x10^3uL (1.8-7.7); NEUT % 38 % (31-73); PLATELET COUNT 263 x10^3/uL (140-400); RED BLOOD COUNT 4.21 x10^6/uL (3.50-5.40); RED CELL DISTRIBUTION WIDTH 16.2 % (11.5-14.5); WHITE BLOOD COUNT 5.5 x10^3/uL (4.0-11.0)
[2017-12-08] MEDS: INSULIN GLARGINE 300 UNITS/3 ML INSULN.PEN. SQ SCH ×2 (08:11→19:38)
[2017-12-08] MEDS: INSULIN LISPRO 300 UNITS/3 ML INSULN.PEN. SQ SCH ×3 (08:11→16:56)
[2017-12-08 15:57] VITALS: BP 144/59
[2017-12-08] MEDS: cloNIDine HCL 0.1 MG TABLET PO SCH (19:32)
[2017-12-08] MEDS: DIVALPROEX ER 500 MG TAB.ER.24H PO SCH (19:33)
[2017-12-08] MEDS: cloZAPine 25 MG TABLET PO SCH (19:33)
--- NOTE | 2017-12-08 21:36 | PDOC ---
Exam Note: Tay Note: Please also refer to the separate dictated note~for this date of service dictated separately.~Patient seen individually. Discussed the patient with Nursing staff reviewed the chart.~Reviewed interim history and current functioning. Reviewed vital signs,~Labs/ Radiology~and current medications noted below. Continue current treatment with the changes noted in the dictated addendum note Assessment: Vital Signs: Vital Signs Date Time Temp Pulse Resp B/P (MAP) Pulse Ox O2 Delivery O2 Flow Rate FiO2 12/08/17 19:32 71 144/59 12/08/17 15:57 97.7 16 93 12/04/17 12:45 Room Air I&O Intake and Output 12/08/17 07:00 Intake Total 680 ml Balance 680 ml Intake Oral 680 ml # Voids 1 # Bowel Movements 1 Labs: Laboratory Tests Test 12/08/17 07:15 12/08/17 07:22 12/08/17 11:09 12/08/17 16:06 White Blood Count 5.5 x10^3/uL (4.0-11.0) Red Blood Count 4.21 x10^6/uL (3.50-5.40) Hemoglobin 11.4 g/dL (12.0-15.5) L Hematocrit 35.6 % (36.0-47.0) L Mean Corpuscular Volume 85 fL (79-100) Mean Corpuscular Hemoglobin 27 pg (25-35) Mean Corpuscular Hemoglobin Concent 32 g/dL (31-37) Red Cell Distribution Width 16.2 % (11.5-14.5) H Platelet Count 263 x10^3/uL (140-400) Neutrophils (%) (Auto) 38 % (31-73) Lymphocytes (%) (Auto) 48 % (24-48) Monocytes (%) (Auto) 8 % (0-9) Eosinophils (%) (Auto) 6 % (0-3) H Basophils (%) (Auto) 0 % (0-3) Neutrophils # (Auto) 2.1 x10^3uL (1.8-7.7) Lymphocytes # (Auto) 2.6 x10^3/uL (1.0-4.8) Monocytes # (Auto) 0.5 x10^3/uL (0.0-1.1) Eosinophils # (Auto) 0.3 x10^3/uL (0.0-0.7) Basophils # (Auto) 0.0 x10^3/uL (0.0-0.2) Glucose (Fingerstick) 104 mg/dL (70-99) H 176 mg/dL (70-99) H 226 mg/dL (70-99) H Test 12/08/17 16:42 12/08/17 19:56 Glucose (Fingerstick) 240 mg/dL (70-99) H 142 mg/dL (70-99) H Current Medications: Meds: Current Medications Ciprofloxacin Lactate 200 ml @ 200 mls/hr 1X ONCE IV ; Start 11/23/17 at 16:30 ; Stop 11/23/17 at 16:31; Status DC Ciprofloxacin (Cipro) 500 mg 1X ONCE PO Last administered on 11/23/17at 16:45; Start 11/23/17 at 17:00; Stop 11/23/17 at 17:01; Status DC Acetaminophen (Tylenol) 650 mg PRN Q6HRS PRN PO PAIN / TEMP; Start 11/23/17 at 17:45; Status Cancel Multi-Ingredient Ointment (Analgesic [place]) 1 yong PRN QID PRN TP MUSCLE PAIN; Start 11/23/17 at 17:45 Al Hydroxide/Mg Hydroxide (Mylanta Plus Xs) 15 ml PRN AFTMEALHC PRN PO DYSPEPSIA; Start 11/23/17 at 17:45 Magnesium Hydroxide (Milk Of Magnesia) 2,400 mg PRN QHS PRN PO CONSTIPATION Last administered on 12/05/17at 14:09; Start 11/23/17 at 17:45 Aripiprazole (Abilify) 15 mg BID PO Last administered on 12/08/17at 19:32; Start 11/24/17 at 09:00 Clonazepam (KlonoPIN) 0.5 mg BID PO Last administered on 12/06/17at 08:02; Start 11/24/17 at 09:00; Stop 12/06/17 at 18:24; Status DC Haloperidol Lactate (Haldol) 5 mg PRN Q4HRS PRN IM AGITATION; Start 11/23/17 at 22:15 Haloperidol (Haldol) 20 mg BID PO Last administered on 11/27/17at 08:57; Start 11/24/17 at 09:00; Stop 11/27/17 at 18:23; Status DC Acetaminophen (Tylenol) 500 mg PRN Q6HRS PRN PO PAIN Last administered on 09:16; Start 11/23/17 at 22:15 Amlodipine Besylate (Norvasc) 10 mg DAILY PO Last administered on 12/08/17 07: 54; Start 11/24/17 at 09:00 Aspirin (Aspirin Enteric Coated) 81 mg DAILY PO Last administered on 12/08/17 07:54; Start 11/24/17 at 09:00 Cetirizine HCl (ZyrTEC) 10 mg DAILY PO Last administered on 12/08/17 07:54; Start 11/24/17 at 09:00 Clonidine HCl (Catapres) 0.1 mg HS PO Last administered on 12/08/17 19:32; Start 11/24/17 at 21:00 Docusate Sodium (Colace) 100 mg DAILY PO Last administered on 12/08/17 07:55; Start 11/24/17 at 09:00 Docusate Sodium (Colace) 100 mg PRN DAILY PRN PO CONSTIPATION; Start 11/23/17 at 22:15 Erythromycin (E-Mycin) 250 mg TIDPC PO Last administered on 11/25/17 16:39; Start 11/24/17 at 08:30; Stop 11/25/17 at 18:49; Status DC Famotidine (Pepcid) 20 mg BID PO Last administered on 12/08/17 19:31; Start at 09:00 Furosemide (Lasix) 40 mg DAILY PO Last administered on 12/08/17 07:55; Start at 09:00 Gabapentin (Neurontin) 300 mg BID PO Last administered on 12/03/17 08:10; Start 11/24/17 at 09:00; Stop 12/03/17 at 19:08; Status DC Gemfibrozil (Lopid) 600 mg BIDWMEALS PO Last administered on 12/08/17 16:42; Start 11/24/17 at 08:00 Glucagon (Glucagen Kit) 1 mg PRN 1X PRN SQ hypoglycemia; Start 11/23/17 at 22: 15 Insulin Human Lispro (HumaLOG) 4 units DAILYWBKFT SQ Last administered on 08:11; Start 11/24/17 at 08:00 Insulin Human Lispro (HumaLOG) 8 units DAILYBFRLUN SQ Last administered on 12:12; Start 11/24/17 at 11:30 Insulin Human Lispro (HumaLOG) 10 units DAILYBFRSUP SQ Last administered on 12/08 16:56; Start 11/24/17 at 17:00 Insulin Glargine (Lantus) 16 units HS SQ Last administered on 12/08/17 19:38; Start 11/23/17 at 23:00 Insulin Glargine (Lantus) 26 units DAILYWBKFT SQ Last administered on 12/08/17 08:11; Start 11/24/17 at 08:00 Lisinopril (Prinivil) 20 mg DAILY PO Last administered on 12/08/17 07:55; Start 11/24/17 at 09:00 Magnesium Oxide (Magnesium Oxide) 400 mg DAILY PO Last administered on 07:54; Start 11/24/17 at 09:00 Sennosides (Senna) 8.6 mg BID PO Last administered on 12/08/17 19:33; Start at 09:00 Tramadol HCl (Ultram) 50 mg PRN Q6HRS PRN PO PAIN Last administered on 10:06; Start 11/23/17 at 22:15 Fluticasone Propionate (Flonase) 2 spray PRN DAILY PRN NS ALLERGIES Last administered on 11/25/17 00:29; Start 11/24/17 at 09:00 Non-Formulary Medication (Gly/Dimeth/ Petrolat,Wht/ Water (Moisturizing Cream)) 1 yong PRN PRN TP skin protectant; Start 11/23/17 at 22:15; Status UNV Non-Formulary Medication (Mag Hydrox/Al Hydrox/Simeth (Mintox Suspension)) 15 ml PRN BID PRN PO gerd; Start 11/23/17 at 22:15; Status UNV Non-Formulary Medication (Magnesium Hydroxide (Milk Of Magnesia)) 2,400 mg PRN DAILY PRN PO CONSTIPATION; Start 11/23/17 at 22:15; Status UNV Multivitamins/ Calcium (Thera-M Plus) 1 tab DAILY PO Last administered on 07:55; Start 11/24/17 at 09:00 Pioglitazone HCl (Actos) 30 mg DAILY PO Last administered on 12/08/17 07:52; Start 11/24/17 at 09:00 Potassium Chloride (Klor-Con) 10 meq DAILY PO Last administered on 12/08/17 07: 54; Start 11/24/17 at 09:00 Simethicone (Gas-X) 120 mg TID PO Last administered on 12/08/17 19:32; Start at 09:00 Divalproex Sodium (Depakote Er) 500 mg HS PO Last administered on 11/26/17 19: 33; Start 11/24/17 at 21:00; Stop 11/27/17 at 18:23; Status DC Phenylephrine/ Shark Liver Oil (Preparation H) 1 supp PRN Q8HRS PRN [place] RECTAL PAIN Last administered on 11/30/17 09:03; Start 11/24/17 at 19:00 Lactobacillus Rhamnosus (Culturelle) 1 cap BID PO Last administered on 19:31; Start 11/25/17 at 21:00 Fluvoxamine Maleate (Luvox) 25 mg HS PO Last administered on 12/01/17 20:56; Start 11/25/17 at 21:00; Stop 12/02/17 at 18:28; Status DC Olanzapine (ZyPREXA ZYDIS) 2.5 mg PRN Q2HR PRN PO PSYCHOSIS Last administered on 12/03/17 12:31; Start 11/25/17 at 18:15 Cyanocobalamin (Vitamin B-12) 1,000 mcg QMONTH IM ; Start 11/26/17 at 09:00; Stop 11/26/17 at 09:00; Status DC Divalproex Sodium (Depakote Er) 1,000 mg HS PO Last administered on 11/29/17 19:22; Start 11/27/17 at 21:00; Stop 11/30/17 at 18:31; Status DC Haloperidol (Haldol) 20 mg DAILY PO Last administered on 12/05/17 09:21; Start 11/28/17 at 09:00; Stop 12/05/17 at 15:45; Status DC Haloperidol (Haldol) 15 mg HS PO Last administered on 12/04/17 19:20; Start at 21:00; Stop 12/05/17 at 15:45; Status DC Polyethylene Glycol (miraLAX) 17 gm DAILY PO ; Start 11/30/17 at 12:30; Stop at 12:30; Status DC Polyethylene Glycol (miraLAX) 17 gm DAILY PO Last administered on 12/08/17 07: 56; Start 11/30/17 at 09:00 Divalproex Sodium (Depakote Er) 1,500 mg HS PO Last administered on 12/08/17 19 :33; Start 11/30/17 at 21:00 Fluvoxamine Maleate (Luvox) 50 mg HS PO Last administered on 12/08/17 19:33; Start 12/02/17 at 21:00 Gabapentin (Neurontin) 300 mg TID PO Last administered on 12/08/17 19:31; Start 12/03/17 at 21:00 Clozapine (Clozaril) 25 mg HS PO Last administered on 12/08/17 19:33; Start at 21:00 Haloperidol (Haldol) 15 mg BID PO Last administered on 12/08/17 19:31; Start at 21:00 Clonazepam (KlonoPIN) 0.25 mg BID PO Last administered on 12/08/17 19:37; Start 12/06/17 at 21:00; Stop 12/09/17 at 22:00 Artificial Tears (Refresh Classic) 1 drop PRN Q15MIN PRN OU DRY EYE; Start at 15:45 Trazodone HCl (Desyrel) 12.5 mg TID@0900,1300,1700 PO Last administered on 16:42; Start 12/08/17 at 09:00 Active Scripts Active Reported Tramadol Hcl (Tramadol HCl) 50 Mg Tablet 50 Mg PO PRN Q6HRS PRN Multi Vitamin Daily (Multivitamin) 1 Each Tablet 1 Tab PO DAILY Simethicone 125 Mg Capsule 125 Mg PO TID Senna Lax (Sennosides) 8.6 Mg Tablet 8.6 Mg PO BID Potassium Chloride 10 Meq Tablet.er 10 Meq PO DAILY Actos (Pioglitazone Hcl) 30 Mg Tablet 30 Mg PO DAILY Pepcid (Famotidine) 20 Mg Tablet 20 Mg PO BID Novolog Flexpen (Insulin Aspart) 100 Unit/1 Ml Insuln.pen 8 Units SQ DAILYBFRLUN Novolog Flexpen (Insulin Aspart) 100 Unit/1 Ml Insuln.pen 4 Units SQ DAILYWBKFT Novolog Flexpen (Insulin Aspart) 100 Unit/1 Ml Insuln.pen 10 Unit SQ DAILYBFRSUP Moisturizing Cream (Gly/Dimeth/Petrolat,Wht/Water) 453 Gm Cream..g. 1 Yong TP PRN PRN Mintox Suspension (Mag Hydrox/Al Hydrox/Simeth) 355 Ml Oral.susp 15 Ml PO PRN BID PRN Milk Of Magnesia (Magnesium Hydroxide) 2,400 Mg/10 Ml Oral.susp 2,400 Mg PO PRN DAILY PRN Mapap (Acetaminophen) 500 Mg Tablet 500 Mg PO PRN Q6HRS PRN Magnesium Oxide 400 Mg Tablet 500 Mg PO DAILY Lisinopril 20 Mg Tablet 20 Mg PO DAILY Lipitor (Atorvastatin Calcium) 10 Mg Tablet 10 Mg PO QHS Levemir Flextouch (Insulin Detemir) 100 Unit/1 Ml Insuln.pen 26 Units SQ DAILYWBKFT Levemir Flextouch (Insulin Detemir) 100 Unit/1 Ml Insuln.pen 16 Units SQ HS Lasix (Furosemide) 40 Mg Tablet 40 Mg PO DAILY Haloperidol 10 Mg Tablet 20 Mg PO BID Haloperidol Lactate 5 Mg/1 Ml Vial 5 Mg IJ PRN Q4HRS PRN Glucagen (Glucagon,Human Recombinant) 1 Mg/1 Ml Vial 1 Mg IJ PRN PRN Gemfibrozil 600 Mg Tablet 600 Mg PO BID Gabapentin 300 Mg Capsule 300 Mg PO BID Flonase Allergy Relief (Fluticasone Propionate) 9.9 Ml [place].susp 2 Sprays NS PRN PRN Erythromycin (Erythromycin Base) 250 Mg Tablet 250 Mg PO TIDPC Docusate Sodium 100 Mg Capsule 100 Mg PO DAILY Docusate Sodium 100 Mg Capsule 100 Mg PO PRN DAILY PRN Clonidine Hcl 0.1 Mg Tablet 0.1 Mg PO HS Clonazepam 0.5 Mg Tablet 0.5 Mg PO BID Cetirizine Hcl 10 Mg Tablet 10 Mg PO DAILY Aspirin Ec (Aspirin) 81 Mg Tablet. 81 Mg PO DAILY Amlodipine Besylate 10 Mg Tablet 10 Mg PO DAILY Abilify (Aripiprazole) 15 Mg Tablet 15 Mg PO BID I have reviewed the current psychotropics carefully including drug interactions. Risk benefit ratio favors no change other than as noted in my dictated progress note. Diagnosis: Problems: (1) Peripheral neuropathy (2) UTI (urinary tract infection) (3) Skin tear (4) Acute adjustment disorder (5) Anxiety disorder (6) Bipolar affective, mixed, sev w/ psych (7) Schizoaffective disorder, chronic condition with acute exacerbation (8) Schizophrenia, disorganized, subchronic with acute exacerbation JASS HUNG MD December 08, 2017 21:36
--- NOTE | 2017-12-09 03:00 | PN ---
DATE: 12/07/2017 PSYCHIATRIC PROGRESS NOTE This is a late entry for 12/07/2017, covers elements not covered in my initial note of 12/07/2017. SUBJECTIVE: I met with the patient in the evening. The patient slept 4-3/4 hours previous evening. She is anxious, restless, obsessive, back at the nursing staff window lot of the time. REVIEW OF SYSTEMS: No CV, , pulmonary, eye, ENT system symptoms on review. Reliability varies. MENTAL STATUS EXAM: Oriented to herself and situation. Speech is coherent, a little slurred at times. Abstraction fair, computation impaired, language function intact, attention span short. Mood and affect somewhat anxious, labile. LABORATORY DATA: Reviewed. IMPRESSION: Unchanged from initial note. PLAN: Start trazodone 12.5 mg at 9 a.m., 1:00 p.m., 5:00 p.m. Rest unchanged as before. Klonopin has been reduced. JASS HUNG MD DR: KATIANA/alicia JOB#: [id number] / [id number]
[2017-12-09 06:37] VITALS: BP 128/50
[2017-12-09] MEDS: traZODone 50 MG TABLET. PO SCH ×3 (07:54→17:44)
[2017-12-09] MEDS: amLODIPine BESYLATE 10 MG TABLET PO SCH (07:55)
[2017-12-09] MEDS: GEMFIBROZIL 600 MG TABLET. PO SCH ×2 (07:55→17:43)
[2017-12-09] MEDS: POTASSIUM CHLORIDE 10 MEQ TABLET.ER. PO SCH (07:56)
[2017-12-09] MEDS: FUROSEMIDE 40 MG TABLET PO SCH (07:57)
[2017-12-09] MEDS: MULTIVITAMIN with MINERAL TABLET. PO SCH (07:57)
[2017-12-09] MEDS: SIMETHICONE 80 MG TAB.CHEW PO SCH ×3 (07:57→19:42)
[2017-12-09] MEDS: SENNOSIDES 8.6 MG TABLET PO SCH ×2 (07:57→19:44)
[2017-12-09] MEDS: GABAPENTIN 300 MG CAPSULE. PO SCH ×3 (07:57→19:42)
[2017-12-09] MEDS: LACTOBACILLUS RHAMNOSUS GG 1 CAPSULE. PO SCH ×2 (07:57→19:42)
[2017-12-09] MEDS: HALOPERIDOL 5 MG TABLET PO SCH ×2 (07:57→19:44)
[2017-12-09] MEDS: ARIPiprazole 15 MG TABLET PO SCH ×2 (07:58→19:43)
[2017-12-09] MEDS: CETIRIZINE HCL 10 MG TABLET PO SCH (07:58)
[2017-12-09] MEDS: FAMOTIDINE 20 MG TABLET PO SCH ×2 (07:59→19:43)
[2017-12-09] MEDS: ASPIRIN ENTERIC COATED 81 MG TABLET.DR. PO SCH (07:59)
[2017-12-09 08:00] VITALS: BP 129/62
[2017-12-09] MEDS: LISINOPRIL 20 MG TABLET PO SCH (08:00)
[2017-12-09] MEDS: POLYETHYLENE GLYCOL 3350 17 GM PACKET. PO SCH (08:00)
[2017-12-09] MEDS: PIOGLITAZONE 15 MG TABLET. PO SCH (08:00)
[2017-12-09] MEDS: INSULIN LISPRO 300 UNITS/3 ML INSULN.PEN. SQ SCH ×3 (08:00→17:44)
[2017-12-09] MEDS: MAGNESIUM OXIDE 400 MG TABLET PO SCH (08:00)
[2017-12-09] MEDS: DOCUSATE SODIUM 100 MG CAPSULE PO SCH (08:00)
[2017-12-09] MEDS: clonazePAM 0.5 MG TABLET PO SCH ×2 (08:11→19:48)
[2017-12-09] MEDS: INSULIN GLARGINE 300 UNITS/3 ML INSULN.PEN. SQ SCH ×2 (08:13→19:52)
[2017-12-09] MEDS: FLUTICASONE 50MCG/NASAL SPRAY 16GM BOTTLE. NS PRN (08:40)
[2017-12-09] MEDS: POLYVINYL ALCOHOL/POVIDONE/PF OPHTH SOLUTION DROPERETTE. OU PRN (08:41)
[2017-12-09 16:50] VITALS: BP 185/79
[2017-12-09] MEDS: cloNIDine HCL 0.1 MG TABLET PO SCH (19:43)
[2017-12-09] MEDS: cloZAPine 25 MG TABLET PO SCH (19:43)
[2017-12-09] MEDS: DIVALPROEX ER 500 MG TAB.ER.24H PO SCH (19:44)
--- NOTE | 2017-12-09 20:58 | PDOC ---
Exam Note: Tay Note: Please also refer to the separate dictated note~for this date of service dictated separately.~Patient seen individually. Discussed the patient with Nursing staff reviewed the chart.~Reviewed interim history and current functioning. Reviewed vital signs,~Labs/ Radiology~and current medications noted below. Continue current treatment with the changes noted in the dictated addendum note Assessment: Vital Signs: Vital Signs Date Time Temp Pulse Resp B/P (MAP) Pulse Ox O2 Delivery O2 Flow Rate FiO2 12/09/17 19:43 60 185/79 12/09/17 16:50 97.0 20 100 12/04/17 12:45 Room Air I&O Intake and Output 12/09/17 07:00 Intake Total 1320 ml Balance 1320 ml Intake Oral 1320 ml Labs: Laboratory Tests Test 12/09/17 07:49 12/09/17 11:30 12/09/17 16:23 12/09/17 19:12 Glucose (Fingerstick) 72 mg/dL (70-99) 180 mg/dL (70-99) H 207 mg/dL (70-99) H 174 mg/dL (70-99) H Current Medications: Meds: Current Medications Ciprofloxacin Lactate 200 ml @ 200 mls/hr 1X ONCE IV ; Start 11/23/17 at 16:30 ; Stop 11/23/17 at 16:31; Status DC Ciprofloxacin (Cipro) 500 mg 1X ONCE PO Last administered on 11/23/17at 16:45; Start 11/23/17 at 17:00; Stop 11/23/17 at 17:01; Status DC Acetaminophen (Tylenol) 650 mg PRN Q6HRS PRN PO PAIN / TEMP; Start 11/23/17 at 17:45; Status Cancel Multi-Ingredient Ointment (Analgesic [place]) 1 yong PRN QID PRN TP MUSCLE PAIN; Start 11/23/17 at 17:45 Al Hydroxide/Mg Hydroxide (Mylanta Plus Xs) 15 ml PRN AFTMEALHC PRN PO DYSPEPSIA; Start 11/23/17 at 17:45 Magnesium Hydroxide (Milk Of Magnesia) 2,400 mg PRN QHS PRN PO CONSTIPATION Last administered on 12/05/17at 14:09; Start 11/23/17 at 17:45 Aripiprazole (Abilify) 15 mg BID PO Last administered on 12/09/17 19:43; Start 11/24/17 at 09:00 Clonazepam (KlonoPIN) 0.5 mg BID PO Last administered on 12/06/17 08:02; Start 11/24/17 at 09:00; Stop 12/06/17 at 18:24; Status DC Haloperidol Lactate (Haldol) 5 mg PRN Q4HRS PRN IM AGITATION; Start 11/23/17 at 22:15 Haloperidol (Haldol) 20 mg BID PO Last administered on 11/27/17 08:57; Start 11/24/17 at 09:00; Stop 11/27/17 at 18:23; Status DC Acetaminophen (Tylenol) 500 mg PRN Q6HRS PRN PO PAIN Last administered on 09:16; Start 11/23/17 at 22:15 Amlodipine Besylate (Norvasc) 10 mg DAILY PO Last administered on 12/09/17 07: 55; Start 11/24/17 at 09:00 Aspirin (Aspirin Enteric Coated) 81 mg DAILY PO Last administered on 12/09/17 07:59; Start 11/24/17 at 09:00 Cetirizine HCl (ZyrTEC) 10 mg DAILY PO Last administered on 12/09/17 07:58; Start 11/24/17 at 09:00 Clonidine HCl (Catapres) 0.1 mg HS PO Last administered on 12/09/17 19:43; Start 11/24/17 at 21:00 Docusate Sodium (Colace) 100 mg DAILY PO Last administered on 12/09/17 08:00; Start 11/24/17 at 09:00 Docusate Sodium (Colace) 100 mg PRN DAILY PRN PO CONSTIPATION; Start 11/23/17 at 22:15 Erythromycin (E-Mycin) 250 mg TIDPC PO Last administered on 11/25/17 16:39; Start 11/24/17 at 08:30; Stop 11/25/17 at 18:49; Status DC Famotidine (Pepcid) 20 mg BID PO Last administered on 12/09/17 19:43; Start at 09:00 Furosemide (Lasix) 40 mg DAILY PO Last administered on 5/2/18at 07:57; Start at 09:00 Gabapentin (Neurontin) 300 mg BID PO Last administered on 12/03/17 08:10; Start 11/24/17 at 09:00; Stop 12/03/17 at 19:08; Status DC Gemfibrozil (Lopid) 600 mg BIDWMEALS PO Last administered on 12/09/17 17:43; Start 11/24/17 at 08:00 Glucagon (Glucagen Kit) 1 mg PRN 1X PRN SQ hypoglycemia; Start 11/23/17 at 22: 15 Insulin Human Lispro (HumaLOG) 4 units DAILYWBKFT SQ Last administered on 08:11; Start 11/24/17 at 08:00 Insulin Human Lispro (HumaLOG) 8 units DAILYBFRLUN SQ Last administered on 12:16; Start 11/24/17 at 11:30 Insulin Human Lispro (HumaLOG) 10 units DAILYBFRSUP SQ Last administered on 12/09 17:44; Start 11/24/17 at 17:00 Insulin Glargine (Lantus) 16 units HS SQ Last administered on 12/09/17 19:52; Start 11/23/17 at 23:00 Insulin Glargine (Lantus) 26 units DAILYWBKFT SQ Last administered on 12/09/17 08:13; Start 11/24/17 at 08:00 Lisinopril (Prinivil) 20 mg DAILY PO Last administered on 12/09/17 08:00; Start 11/24/17 at 09:00 Magnesium Oxide (Magnesium Oxide) 400 mg DAILY PO Last administered on 08:00; Start 11/24/17 at 09:00 Sennosides (Senna) 8.6 mg BID PO Last administered on 12/09/17 19:44; Start at 09:00 Tramadol HCl (Ultram) 50 mg PRN Q6HRS PRN PO PAIN Last administered on 10:06; Start 11/23/17 at 22:15 Fluticasone Propionate (Flonase) 2 spray PRN DAILY PRN NS ALLERGIES Last administered on 12/09/17 08:40; Start 11/24/17 at 09:00 Non-Formulary Medication (Gly/Dimeth/ Petrolat,Wht/ Water (Moisturizing Cream)) 1 yong PRN PRN TP skin protectant; Start 11/23/17 at 22:15; Status UNV Non-Formulary Medication (Mag Hydrox/Al Hydrox/Simeth (Mintox Suspension)) 15 ml PRN BID PRN PO gerd; Start 11/23/17 at 22:15; Status UNV Non-Formulary Medication (Magnesium Hydroxide (Milk Of Magnesia)) 2,400 mg PRN DAILY PRN PO CONSTIPATION; Start 11/23/17 at 22:15; Status UNV Multivitamins/ Calcium (Thera-M Plus) 1 tab DAILY PO Last administered on 07:57; Start 11/24/17 at 09:00 Pioglitazone HCl (Actos) 30 mg DAILY PO Last administered on 12/09/17 08:00; Start 11/24/17 at 09:00 Potassium Chloride (Klor-Con) 10 meq DAILY PO Last administered on 12/09/17 07: 56; Start 11/24/17 at 09:00 Simethicone (Gas-X) 120 mg TID PO Last administered on 12/09/17 19:42; Start at 09:00 Divalproex Sodium (Depakote Er) 500 mg HS PO Last administered on 11/26/17 19: 33; Start 11/24/17 at 21:00; Stop 11/27/17 at 18:23; Status DC Phenylephrine/ Shark Liver Oil (Preparation H) 1 supp PRN Q8HRS PRN [place] RECTAL PAIN Last administered on 11/30/17 09:03; Start 11/24/17 at 19:00 Lactobacillus Rhamnosus (Culturelle) 1 cap BID PO Last administered on 19:42; Start 11/25/17 at 21:00 Fluvoxamine Maleate (Luvox) 25 mg HS PO Last administered on 12/01/17 20:56; Start 11/25/17 at 21:00; Stop 12/02/17 at 18:28; Status DC Olanzapine (ZyPREXA ZYDIS) 2.5 mg PRN Q2HR PRN PO PSYCHOSIS Last administered on 12/03/17 12:31; Start 11/25/17 at 18:15 Cyanocobalamin (Vitamin B-12) 1,000 mcg QMONTH IM ; Start 11/26/17 at 09:00; Stop 11/26/17 at 09:00; Status DC Divalproex Sodium (Depakote Er) 1,000 mg HS PO Last administered on 11/29/17 19:22; Start 11/27/17 at 21:00; Stop 11/30/17 at 18:31; Status DC Haloperidol (Haldol) 20 mg DAILY PO Last administered on 12/05/17 09:21; Start 11/28/17 at 09:00; Stop 12/05/17 at 15:45; Status DC Haloperidol (Haldol) 15 mg HS PO Last administered on 12/04/17 19:20; Start at 21:00; Stop 12/05/17 at 15:45; Status DC Polyethylene Glycol (miraLAX) 17 gm DAILY PO ; Start 11/30/17 at 12:30; Stop at 12:30; Status DC Polyethylene Glycol (miraLAX) 17 gm DAILY PO Last administered on 12/09/17 08: 00; Start 11/30/17 at 09:00 Divalproex Sodium (Depakote Er) 1,500 mg HS PO Last administered on 12/09/17 19 :44; Start 11/30/17 at 21:00 Fluvoxamine Maleate (Luvox) 50 mg HS PO Last administered on 12/09/17 19:43; Start 12/02/17 at 21:00 Gabapentin (Neurontin) 300 mg TID PO Last administered on 12/09/17 19:42; Start 12/03/17 at 21:00 Clozapine (Clozaril) 25 mg HS PO Last administered on 12/08/17 19:33; Start at 21:00; Stop 12/09/17 at 18:53; Status DC Haloperidol (Haldol) 15 mg BID PO Last administered on 12/09/17 19:44; Start at 21:00 Clonazepam (KlonoPIN) 0.25 mg BID PO Last administered on 12/09/17 19:48; Start 12/06/17 at 21:00; Stop 12/09/17 at 22:00 Artificial Tears (Refresh Classic) 1 drop PRN Q15MIN PRN OU DRY EYE Last administered on 12/09/17at 08:41; Start 12/07/17 at 15:45 Trazodone HCl (Desyrel) 12.5 mg TID@0900,1300,1700 PO Last administered on at 17:44; Start 12/08/17 at 09:00 Clozapine (Clozaril) 50 mg HS PO Last administered on 12/09/17at 19:43; Start 12/09/17 at 21:00 Active Scripts Active Reported Tramadol Hcl (Tramadol HCl) 50 Mg Tablet 50 Mg PO PRN Q6HRS PRN Multi Vitamin Daily (Multivitamin) 1 Each Tablet 1 Tab PO DAILY Simethicone 125 Mg Capsule 125 Mg PO TID Senna Lax (Sennosides) 8.6 Mg Tablet 8.6 Mg PO BID Potassium Chloride 10 Meq Tablet.er 10 Meq PO DAILY Actos (Pioglitazone Hcl) 30 Mg Tablet 30 Mg PO DAILY Pepcid (Famotidine) 20 Mg Tablet 20 Mg PO BID Novolog Flexpen (Insulin Aspart) 100 Unit/1 Ml Insuln.pen 8 Units SQ DAILYBFRLUN Novolog Flexpen (Insulin Aspart) 100 Unit/1 Ml Insuln.pen 4 Units SQ DAILYWBKFT Novolog Flexpen (Insulin Aspart) 100 Unit/1 Ml Insuln.pen 10 Unit SQ DAILYBFRSUP Moisturizing Cream (Gly/Dimeth/Petrolat,Wht/Water) 453 Gm Cream..g. 1 Yong TP PRN PRN Mintox Suspension (Mag Hydrox/Al Hydrox/Simeth) 355 Ml Oral.susp 15 Ml PO PRN BID PRN Milk Of Magnesia (Magnesium Hydroxide) 2,400 Mg/10 Ml Oral.susp 2,400 Mg PO PRN DAILY PRN Mapap (Acetaminophen) 500 Mg Tablet 500 Mg PO PRN Q6HRS PRN Magnesium Oxide 400 Mg Tablet 500 Mg PO DAILY Lisinopril 20 Mg Tablet 20 Mg PO DAILY Lipitor (Atorvastatin Calcium) 10 Mg Tablet 10 Mg PO QHS Levemir Flextouch (Insulin Detemir) 100 Unit/1 Ml Insuln.pen 26 Units SQ DAILYWBKFT Levemir Flextouch (Insulin Detemir) 100 Unit/1 Ml Insuln.pen 16 Units SQ HS Lasix (Furosemide) 40 Mg Tablet 40 Mg PO DAILY Haloperidol 10 Mg Tablet 20 Mg PO BID Haloperidol Lactate 5 Mg/1 Ml Vial 5 Mg IJ PRN Q4HRS PRN Glucagen (Glucagon,Human Recombinant) 1 Mg/1 Ml Vial 1 Mg IJ PRN PRN Gemfibrozil 600 Mg Tablet 600 Mg PO BID Gabapentin 300 Mg Capsule 300 Mg PO BID Flonase Allergy Relief (Fluticasone Propionate) 9.9 Ml [place].susp 2 Sprays NS PRN PRN Erythromycin (Erythromycin Base) 250 Mg Tablet 250 Mg PO TIDPC Docusate Sodium 100 Mg Capsule 100 Mg PO DAILY Docusate Sodium 100 Mg Capsule 100 Mg PO PRN DAILY PRN Clonidine Hcl 0.1 Mg Tablet 0.1 Mg PO HS Clonazepam 0.5 Mg Tablet 0.5 Mg PO BID Cetirizine Hcl 10 Mg Tablet 10 Mg PO DAILY Aspirin Ec (Aspirin) 81 Mg Tablet.dr 81 Mg PO DAILY Amlodipine Besylate 10 Mg Tablet 10 Mg PO DAILY Abilify (Aripiprazole) 15 Mg Tablet 15 Mg PO BID I have reviewed the current psychotropics carefully including drug interactions. Risk benefit ratio favors no change other than as noted in my dictated progress note. Diagnosis: Problems: (1) Peripheral neuropathy (2) UTI (urinary tract infection) (3) Skin tear (4) Acute adjustment disorder (5) Anxiety disorder (6) Bipolar affective, mixed, sev w/ psych (7) Schizoaffective disorder, chronic condition with acute exacerbation (8) Schizophrenia, disorganized, subchronic with acute exacerbation JASS HUNG MD December 09, 2017 20:58
--- NOTE | 2017-12-09 23:24 | PN ---
DATE: 12/08/2017 This is a late entry for 12/08/2017 covers elements not covered in my initial note of 12/08/2017. SUBJECTIVE: I met with the patient in the evening. The patient slept 8 hours previous night. WBC is 5.5, neutrophils 38%. We will check with pharmacy to make sure it is appropriate with her Clozaril. REVIEW OF SYSTEMS: No CV, , pulmonary, eye, ENT system symptoms on review. Seems more confused at times. MENTAL STATUS EXAM: Oriented to herself and situation. Speech coherent, less pressured. Abstraction fair, computation impaired, language function intact. Mood and affect, still somewhat labile, intermittently psychotic. LABORATORY DATA: Reviewed. IMPRESSION: Schizoaffective disorder, bipolar type, mixed with psychotic features. PLAN: May need to increase Clozaril gradually. Klonopin is being tapered. Haldol has been reduced. She remains on Abilify along with Luvox and Depakote ER 1500 mg at bedtime. Level therapeutic at 67. MAN Prosper HUNG MD DR: KATIANA/alicia JOB#: [id number] / [id number]
[2017-12-10 05:40] VITALS: BP 95/49
[2017-12-10] MEDS: POLYETHYLENE GLYCOL 3350 17 GM PACKET. PO SCH (08:48)
[2017-12-10] MEDS: HALOPERIDOL 5 MG TABLET PO SCH ×2 (08:49→19:50)
[2017-12-10] MEDS: traZODone 50 MG TABLET. PO SCH ×3 (08:50→16:22)
[2017-12-10] MEDS: LACTOBACILLUS RHAMNOSUS GG 1 CAPSULE. PO SCH ×2 (08:51→19:50)
[2017-12-10] MEDS: GABAPENTIN 300 MG CAPSULE. PO SCH ×3 (08:51→19:49)
[2017-12-10] MEDS: ARIPiprazole 15 MG TABLET PO SCH ×2 (08:51→19:50)
[2017-12-10] MEDS: FAMOTIDINE 20 MG TABLET PO SCH ×2 (08:52→19:49)
[2017-12-10] MEDS: PIOGLITAZONE 15 MG TABLET. PO SCH (08:52)
[2017-12-10] MEDS: SENNOSIDES 8.6 MG TABLET PO SCH ×2 (08:53→19:49)
[2017-12-10] MEDS: MAGNESIUM OXIDE 400 MG TABLET PO SCH (08:53)
[2017-12-10] MEDS: CETIRIZINE HCL 10 MG TABLET PO SCH (08:53)
[2017-12-10] MEDS: GEMFIBROZIL 600 MG TABLET. PO SCH ×2 (08:53→16:22)
[2017-12-10] MEDS: DOCUSATE SODIUM 100 MG CAPSULE PO SCH (08:53)
[2017-12-10] MEDS: SIMETHICONE 80 MG TAB.CHEW PO SCH ×3 (08:54→19:49)
[2017-12-10] MEDS: POTASSIUM CHLORIDE 10 MEQ TABLET.ER. PO SCH (08:54)
[2017-12-10] MEDS: FUROSEMIDE 40 MG TABLET PO SCH (08:54)
[2017-12-10] MEDS: MULTIVITAMIN with MINERAL TABLET. PO SCH (09:12)
[2017-12-10] MEDS: ASPIRIN ENTERIC COATED 81 MG TABLET.DR. PO SCH (09:12)
[2017-12-10] MEDS: INSULIN GLARGINE 300 UNITS/3 ML INSULN.PEN. SQ SCH ×2 (09:19→19:54)
[2017-12-10] MEDS: INSULIN LISPRO 300 UNITS/3 ML INSULN.PEN. SQ SCH ×3 (09:25→17:01)
[2017-12-10] MEDS: LISINOPRIL 20 MG TABLET PO SCH (09:26)
[2017-12-10] MEDS: amLODIPine BESYLATE 10 MG TABLET PO SCH (09:27)
[2017-12-10 09:28] VITALS: BP 158/73
[2017-12-10 16:12] LABS: C ANCA <1:20 titer (Neg:<1:20); P ANCA <1:20 titer (Neg:<1:20)
[2017-12-10 16:25] VITALS: BP 142/69
[2017-12-10] MEDS: DIVALPROEX ER 500 MG TAB.ER.24H PO SCH (19:49)
[2017-12-10] MEDS: cloZAPine 25 MG TABLET PO SCH (19:50)
[2017-12-10] MEDS: cloNIDine HCL 0.1 MG TABLET PO SCH (19:51)
--- NOTE | 2017-12-10 21:03 | PDOC ---
Exam Note: Tay Note: Please also refer to the separate dictated note~for this date of service dictated separately.~Patient seen individually. Discussed the patient with Nursing staff reviewed the chart.~Reviewed interim history and current functioning. Reviewed vital signs,~Labs/ Radiology~and current medications noted below. Continue current treatment with the changes noted in the dictated addendum note Assessment: Vital Signs: Vital Signs Date Time Temp Pulse Resp B/P (MAP) Pulse Ox O2 Delivery O2 Flow Rate FiO2 12/10/17 19:51 74 142/69 12/10/17 16:25 97.4 19 97 12/10/17 09:28 Room Air I&O Intake and Output 12/10/17 07:00 Intake Total 1440 ml Balance 1440 ml Intake Oral 1440 ml Labs: Laboratory Tests Test 12/10/17 07:15 12/10/17 11:39 12/10/17 16:38 12/10/17 19:14 Glucose (Fingerstick) 76 mg/dL (70-99) 192 mg/dL (70-99) H 220 mg/dL (70-99) H 177 mg/dL (70-99) H Current Medications: Meds: Current Medications Ciprofloxacin Lactate 200 ml @ 200 mls/hr 1X ONCE IV ; Start 11/23/17 at 16:30 ; Stop 11/23/17 at 16:31; Status DC Ciprofloxacin (Cipro) 500 mg 1X ONCE PO Last administered on 11/23/17at 16:45; Start 11/23/17 at 17:00; Stop 11/23/17 at 17:01; Status DC Acetaminophen (Tylenol) 650 mg PRN Q6HRS PRN PO PAIN / TEMP; Start 11/23/17 at 17:45; Status Cancel Multi-Ingredient Ointment (Analgesic [place]) 1 yong PRN QID PRN TP MUSCLE PAIN; Start 11/23/17 at 17:45 Al Hydroxide/Mg Hydroxide (Mylanta Plus Xs) 15 ml PRN AFTMEALHC PRN PO DYSPEPSIA; Start 11/23/17 at 17:45 Magnesium Hydroxide (Milk Of Magnesia) 2,400 mg PRN QHS PRN PO CONSTIPATION Last administered on 12/05/17at 14:09; Start 11/23/17 at 17:45 Aripiprazole (Abilify) 15 mg BID PO Last administered on 12/10/17 19:50; Start 11/24/17 at 09:00 Clonazepam (KlonoPIN) 0.5 mg BID PO Last administered on 12/06/17 08:02; Start 11/24/17 at 09:00; Stop 12/06/17 at 18:24; Status DC Haloperidol Lactate (Haldol) 5 mg PRN Q4HRS PRN IM AGITATION; Start 11/23/17 at 22:15 Haloperidol (Haldol) 20 mg BID PO Last administered on 11/27/17 08:57; Start 11/24/17 at 09:00; Stop 11/27/17 at 18:23; Status DC Acetaminophen (Tylenol) 500 mg PRN Q6HRS PRN PO PAIN Last administered on 09:16; Start 11/23/17 at 22:15 Amlodipine Besylate (Norvasc) 10 mg DAILY PO Last administered on 12/10/17 09: 27; Start 11/24/17 at 09:00 Aspirin (Aspirin Enteric Coated) 81 mg DAILY PO Last administered on 12/10/17 09:12; Start 11/24/17 at 09:00 Cetirizine HCl (ZyrTEC) 10 mg DAILY PO Last administered on 12/10/17 08:53; Start 11/24/17 at 09:00 Clonidine HCl (Catapres) 0.1 mg HS PO Last administered on 12/10/17 19:51; Start 11/24/17 at 21:00 Docusate Sodium (Colace) 100 mg DAILY PO Last administered on 12/10/17 08:53; Start 11/24/17 at 09:00 Docusate Sodium (Colace) 100 mg PRN DAILY PRN PO CONSTIPATION; Start 11/23/17 at 22:15 Erythromycin (E-Mycin) 250 mg TIDPC PO Last administered on 11/25/17 16:39; Start 11/24/17 at 08:30; Stop 11/25/17 at 18:49; Status DC Famotidine (Pepcid) 20 mg BID PO Last administered on 12/10/17 19:49; Start at 09:00 Furosemide (Lasix) 40 mg DAILY PO Last administered on 5/3/18at 08:54; Start at 09:00 Gabapentin (Neurontin) 300 mg BID PO Last administered on 12/03/17 08:10; Start 11/24/17 at 09:00; Stop 12/03/17 at 19:08; Status DC Gemfibrozil (Lopid) 600 mg BIDWMEALS PO Last administered on 12/10/17 16:22; Start 11/24/17 at 08:00 Glucagon (Glucagen Kit) 1 mg PRN 1X PRN SQ hypoglycemia; Start 11/23/17 at 22: 15 Insulin Human Lispro (HumaLOG) 4 units DAILYWBKFT SQ Last administered on 09:25; Start 11/24/17 at 08:00 Insulin Human Lispro (HumaLOG) 8 units DAILYBFRLUN SQ Last administered on 13:45; Start 11/24/17 at 11:30 Insulin Human Lispro (HumaLOG) 10 units DAILYBFRSUP SQ Last administered on 12/10 17:01; Start 11/24/17 at 17:00 Insulin Glargine (Lantus) 16 units HS SQ Last administered on 12/10/17 19:54; Start 11/23/17 at 23:00 Insulin Glargine (Lantus) 26 units DAILYWBKFT SQ Last administered on 12/10/17 09:19; Start 11/24/17 at 08:00 Lisinopril (Prinivil) 20 mg DAILY PO Last administered on 12/10/17 09:26; Start 11/24/17 at 09:00 Magnesium Oxide (Magnesium Oxide) 400 mg DAILY PO Last administered on 08:53; Start 11/24/17 at 09:00 Sennosides (Senna) 8.6 mg BID PO Last administered on 12/10/17 19:49; Start at 09:00 Tramadol HCl (Ultram) 50 mg PRN Q6HRS PRN PO PAIN Last administered on 10:06; Start 11/23/17 at 22:15 Fluticasone Propionate (Flonase) 2 spray PRN DAILY PRN NS ALLERGIES Last administered on 12/09/17 08:40; Start 11/24/17 at 09:00 Non-Formulary Medication (Gly/Dimeth/ Petrolat,Wht/ Water (Moisturizing Cream)) 1 yong PRN PRN TP skin protectant; Start 11/23/17 at 22:15; Status UNV Non-Formulary Medication (Mag Hydrox/Al Hydrox/Simeth (Mintox Suspension)) 15 ml PRN BID PRN PO gerd; Start 11/23/17 at 22:15; Status UNV Non-Formulary Medication (Magnesium Hydroxide (Milk Of Magnesia)) 2,400 mg PRN DAILY PRN PO CONSTIPATION; Start 11/23/17 at 22:15; Status UNV Multivitamins/ Calcium (Thera-M Plus) 1 tab DAILY PO Last administered on 09:12; Start 11/24/17 at 09:00 Pioglitazone HCl (Actos) 30 mg DAILY PO Last administered on 12/10/17 08:52; Start 11/24/17 at 09:00 Potassium Chloride (Klor-Con) 10 meq DAILY PO Last administered on 12/10/17 08: 54; Start 11/24/17 at 09:00 Simethicone (Gas-X) 120 mg TID PO Last administered on 12/10/17 19:49; Start at 09:00 Divalproex Sodium (Depakote Er) 500 mg HS PO Last administered on 11/26/17 19: 33; Start 11/24/17 at 21:00; Stop 11/27/17 at 18:23; Status DC Phenylephrine/ Shark Liver Oil (Preparation H) 1 supp PRN Q8HRS PRN [place] RECTAL PAIN Last administered on 11/30/17 09:03; Start 11/24/17 at 19:00 Lactobacillus Rhamnosus (Culturelle) 1 cap BID PO Last administered on 19:50; Start 11/25/17 at 21:00 Fluvoxamine Maleate (Luvox) 25 mg HS PO Last administered on 12/01/17 20:56; Start 11/25/17 at 21:00; Stop 12/02/17 at 18:28; Status DC Olanzapine (ZyPREXA ZYDIS) 2.5 mg PRN Q2HR PRN PO PSYCHOSIS Last administered on 12/03/17 12:31; Start 11/25/17 at 18:15 Cyanocobalamin (Vitamin B-12) 1,000 mcg QMONTH IM ; Start 11/26/17 at 09:00; Stop 11/26/17 at 09:00; Status DC Divalproex Sodium (Depakote Er) 1,000 mg HS PO Last administered on 11/29/17 19:22; Start 11/27/17 at 21:00; Stop 11/30/17 at 18:31; Status DC Haloperidol (Haldol) 20 mg DAILY PO Last administered on 12/05/17 09:21; Start 11/28/17 at 09:00; Stop 12/05/17 at 15:45; Status DC Haloperidol (Haldol) 15 mg HS PO Last administered on 12/04/17 19:20; Start at 21:00; Stop 12/05/17 at 15:45; Status DC Polyethylene Glycol (miraLAX) 17 gm DAILY PO ; Start 11/30/17 at 12:30; Stop at 12:30; Status DC Polyethylene Glycol (miraLAX) 17 gm DAILY PO Last administered on 12/10/17 08: 48; Start 11/30/17 at 09:00 Divalproex Sodium (Depakote Er) 1,500 mg HS PO Last administered on 12/10/17 19 :49; Start 11/30/17 at 21:00 Fluvoxamine Maleate (Luvox) 50 mg HS PO Last administered on 12/10/17 19:51; Start 12/02/17 at 21:00 Gabapentin (Neurontin) 300 mg TID PO Last administered on 12/10/17 19:49; Start 12/03/17 at 21:00 Clozapine (Clozaril) 25 mg HS PO Last administered on 12/08/17 19:33; Start at 21:00; Stop 12/09/17 at 18:53; Status DC Haloperidol (Haldol) 15 mg BID PO Last administered on 12/10/17 19:50; Start at 21:00 Clonazepam (KlonoPIN) 0.25 mg BID PO Last administered on 12/09/17 19:48; Start 12/06/17 at 21:00; Stop 12/09/17 at 22:00; Status DC Artificial Tears (Refresh Classic) 1 drop PRN Q15MIN PRN OU DRY EYE Last administered on 12/09/17at 08:41; Start 12/07/17 at 15:45 Trazodone HCl (Desyrel) 12.5 mg TID@0900,1300,1700 PO Last administered on at 16:22; Start 12/08/17 at 09:00 Clozapine (Clozaril) 50 mg HS PO Last administered on 12/10/17at 19:50; Start 12/09/17 at 21:00 Active Scripts Active Reported Tramadol Hcl (Tramadol HCl) 50 Mg Tablet 50 Mg PO PRN Q6HRS PRN Multi Vitamin Daily (Multivitamin) 1 Each Tablet 1 Tab PO DAILY Simethicone 125 Mg Capsule 125 Mg PO TID Senna Lax (Sennosides) 8.6 Mg Tablet 8.6 Mg PO BID Potassium Chloride 10 Meq Tablet.er 10 Meq PO DAILY Actos (Pioglitazone Hcl) 30 Mg Tablet 30 Mg PO DAILY Pepcid (Famotidine) 20 Mg Tablet 20 Mg PO BID Novolog Flexpen (Insulin Aspart) 100 Unit/1 Ml Insuln.pen 8 Units SQ DAILYBFRLUN Novolog Flexpen (Insulin Aspart) 100 Unit/1 Ml Insuln.pen 4 Units SQ DAILYWBKFT Novolog Flexpen (Insulin Aspart) 100 Unit/1 Ml Insuln.pen 10 Unit SQ DAILYBFRSUP Moisturizing Cream (Gly/Dimeth/Petrolat,Wht/Water) 453 Gm Cream..g. 1 Yong TP PRN PRN Mintox Suspension (Mag Hydrox/Al Hydrox/Simeth) 355 Ml Oral.susp 15 Ml PO PRN BID PRN Milk Of Magnesia (Magnesium Hydroxide) 2,400 Mg/10 Ml Oral.susp 2,400 Mg PO PRN DAILY PRN Mapap (Acetaminophen) 500 Mg Tablet 500 Mg PO PRN Q6HRS PRN Magnesium Oxide 400 Mg Tablet 500 Mg PO DAILY Lisinopril 20 Mg Tablet 20 Mg PO DAILY Lipitor (Atorvastatin Calcium) 10 Mg Tablet 10 Mg PO QHS Levemir Flextouch (Insulin Detemir) 100 Unit/1 Ml Insuln.pen 26 Units SQ DAILYWBKFT Levemir Flextouch (Insulin Detemir) 100 Unit/1 Ml Insuln.pen 16 Units SQ HS Lasix (Furosemide) 40 Mg Tablet 40 Mg PO DAILY Haloperidol 10 Mg Tablet 20 Mg PO BID Haloperidol Lactate 5 Mg/1 Ml Vial 5 Mg IJ PRN Q4HRS PRN Glucagen (Glucagon,Human Recombinant) 1 Mg/1 Ml Vial 1 Mg IJ PRN PRN Gemfibrozil 600 Mg Tablet 600 Mg PO BID Gabapentin 300 Mg Capsule 300 Mg PO BID Flonase Allergy Relief (Fluticasone Propionate) 9.9 Ml [place].susp 2 Sprays NS PRN PRN Erythromycin (Erythromycin Base) 250 Mg Tablet 250 Mg PO TIDPC Docusate Sodium 100 Mg Capsule 100 Mg PO DAILY Docusate Sodium 100 Mg Capsule 100 Mg PO PRN DAILY PRN Clonidine Hcl 0.1 Mg Tablet 0.1 Mg PO HS Clonazepam 0.5 Mg Tablet 0.5 Mg PO BID Cetirizine Hcl 10 Mg Tablet 10 Mg PO DAILY Aspirin Ec (Aspirin) 81 Mg Tablet.dr 81 Mg PO DAILY Amlodipine Besylate 10 Mg Tablet 10 Mg PO DAILY Abilify (Aripiprazole) 15 Mg Tablet 15 Mg PO BID I have reviewed the current psychotropics carefully including drug interactions. Risk benefit ratio favors no change other than as noted in my dictated progress note. Diagnosis: Problems: (1) Peripheral neuropathy (2) UTI (urinary tract infection) (3) Skin tear (4) Acute adjustment disorder (5) Anxiety disorder (6) Bipolar affective, mixed, sev w/ psych (7) Schizoaffective disorder, chronic condition with acute exacerbation (8) Schizophrenia, disorganized, subchronic with acute exacerbation JASS HUNG MD December 10, 2017 21:03
[2017-12-11 06:14] VITALS: BP 125/70
[2017-12-11] MEDS: INSULIN LISPRO 300 UNITS/3 ML INSULN.PEN. SQ SCH ×3 (08:00→17:00)
[2017-12-11] MEDS: INSULIN GLARGINE 300 UNITS/3 ML INSULN.PEN. SQ SCH ×2 (08:00→19:41)
[2017-12-11] MEDS: ASPIRIN ENTERIC COATED 81 MG TABLET.DR. PO SCH (08:06)
[2017-12-11] MEDS: LISINOPRIL 20 MG TABLET PO SCH (08:06)
[2017-12-11] MEDS: POTASSIUM CHLORIDE 10 MEQ TABLET.ER. PO SCH (08:06)
[2017-12-11] MEDS: POLYETHYLENE GLYCOL 3350 17 GM PACKET. PO SCH (08:06)
[2017-12-11] MEDS: FUROSEMIDE 40 MG TABLET PO SCH (08:06)
[2017-12-11] MEDS: MAGNESIUM OXIDE 400 MG TABLET PO SCH (08:06)
[2017-12-11] MEDS: CETIRIZINE HCL 10 MG TABLET PO SCH (08:06)
[2017-12-11] MEDS: GABAPENTIN 300 MG CAPSULE. PO SCH ×3 (08:06→19:40)
[2017-12-11] MEDS: HALOPERIDOL 5 MG TABLET PO SCH ×2 (08:07→19:39)
[2017-12-11] MEDS: FAMOTIDINE 20 MG TABLET PO SCH ×2 (08:07→19:40)
[2017-12-11] MEDS: ARIPiprazole 15 MG TABLET PO SCH ×2 (08:07→19:36)
[2017-12-11] MEDS: PIOGLITAZONE 15 MG TABLET. PO SCH (08:07)
[2017-12-11] MEDS: DOCUSATE SODIUM 100 MG CAPSULE PO SCH (08:07)
[2017-12-11] MEDS: SIMETHICONE 80 MG TAB.CHEW PO SCH ×3 (08:08→19:39)
[2017-12-11] MEDS: SENNOSIDES 8.6 MG TABLET PO SCH ×2 (08:08→19:40)
[2017-12-11] MEDS: amLODIPine BESYLATE 10 MG TABLET PO SCH (08:08)
[2017-12-11] MEDS: traZODone 50 MG TABLET. PO SCH ×3 (08:08→17:28)
[2017-12-11] MEDS: GEMFIBROZIL 600 MG TABLET. PO SCH ×2 (08:08→17:29)
[2017-12-11] MEDS: LACTOBACILLUS RHAMNOSUS GG 1 CAPSULE. PO SCH ×2 (08:08→19:38)
[2017-12-11] MEDS: MULTIVITAMIN with MINERAL TABLET. PO SCH (08:09)
[2017-12-11 15:56] VITALS: BP 153/67
[2017-12-11] MEDS: POLYVINYL ALCOHOL/POVIDONE/PF OPHTH SOLUTION DROPERETTE. OU PRN (16:36)
[2017-12-11] MEDS: cloZAPine 25 MG TABLET PO SCH (19:38)
[2017-12-11] MEDS: cloNIDine HCL 0.1 MG TABLET PO SCH (19:38)
[2017-12-11] MEDS: DIVALPROEX ER 500 MG TAB.ER.24H PO SCH (19:39)
--- NOTE | 2017-12-11 21:06 | PDOC ---
Exam Note: Tay Note: Please also refer to the separate dictated note~for this date of service dictated separately.~Patient seen individually. Discussed the patient with Nursing staff reviewed the chart.~Reviewed interim history and current functioning. Reviewed vital signs,~Labs/ Radiology~and current medications noted below. Continue current treatment with the changes noted in the dictated addendum note Assessment: Vital Signs: Vital Signs Date Time Temp Pulse Resp B/P (MAP) Pulse Ox O2 Delivery O2 Flow Rate FiO2 12/11/17 19:38 83 153/67 12/11/17 15:56 97.8 18 97 12/10/17 09:28 Room Air I&O Intake and Output 12/11/17 07:00 Intake Total 960 ml Balance 960 ml Intake Oral 960 ml # Bowel Movements 1 Labs: Laboratory Tests Test 12/11/17 07:16 12/11/17 11:21 12/11/17 17:01 12/11/17 18:11 Glucose (Fingerstick) 90 mg/dL (70-99) 196 mg/dL (70-99) H 50 mg/dL (70-99) L 166 mg/dL (70-99) H Test 12/11/17 19:14 Glucose (Fingerstick) 265 mg/dL (70-99) H Current Medications: Meds: Current Medications Ciprofloxacin Lactate 200 ml @ 200 mls/hr 1X ONCE IV ; Start 11/23/17 at 16:30 ; Stop 11/23/17 at 16:31; Status DC Ciprofloxacin (Cipro) 500 mg 1X ONCE PO Last administered on 11/23/17at 16:45; Start 11/23/17 at 17:00; Stop 11/23/17 at 17:01; Status DC Acetaminophen (Tylenol) 650 mg PRN Q6HRS PRN PO PAIN / TEMP; Start 11/23/17 at 17:45; Status Cancel Multi-Ingredient Ointment (Analgesic [facility] [place]) 1 yong PRN QID PRN TP MUSCLE PAIN; Start 11/23/17 at 17:45 Al Hydroxide/Mg Hydroxide (Mylanta Plus Xs) 15 ml PRN AFTMEALHC PRN PO DYSPEPSIA Last administered on 12/11/17at 09:45; Start 11/23/17 at 17:45 Magnesium Hydroxide (Milk Of Magnesia) 2,400 mg PRN QHS PRN PO CONSTIPATION Last administered on 12/05/17 14:09; Start 11/23/17 at 17:45 Aripiprazole (Abilify) 15 mg BID PO Last administered on 12/11/17 19:36; Start 11/24/17 at 09:00 Clonazepam (KlonoPIN) 0.5 mg BID PO Last administered on 12/06/17 08:02; Start 11/24/17 at 09:00; Stop 12/06/17 at 18:24; Status DC Haloperidol Lactate (Haldol) 5 mg PRN Q4HRS PRN IM AGITATION; Start 11/23/17 at 22:15 Haloperidol (Haldol) 20 mg BID PO Last administered on 11/27/17 08:57; Start 11/24/17 at 09:00; Stop 11/27/17 at 18:23; Status DC Acetaminophen (Tylenol) 500 mg PRN Q6HRS PRN PO PAIN Last administered on 09:16; Start 11/23/17 at 22:15 Amlodipine Besylate (Norvasc) 10 mg DAILY PO Last administered on 12/11/17 08: 08; Start 11/24/17 at 09:00 Aspirin (Aspirin Enteric Coated) 81 mg DAILY PO Last administered on 12/11/17 08:06; Start 11/24/17 at 09:00 Cetirizine HCl (ZyrTEC) 10 mg DAILY PO Last administered on 12/11/17 08:06; Start 11/24/17 at 09:00 Clonidine HCl (Catapres) 0.1 mg HS PO Last administered on 12/11/17 19:38; Start 11/24/17 at 21:00 Docusate Sodium (Colace) 100 mg DAILY PO Last administered on 12/11/17 08:07; Start 11/24/17 at 09:00 Docusate Sodium (Colace) 100 mg PRN DAILY PRN PO CONSTIPATION; Start 11/23/17 at 22:15 Erythromycin (E-Mycin) 250 mg TIDPC PO Last administered on 11/25/17 16:39; Start 11/24/17 at 08:30; Stop 11/25/17 at 18:49; Status DC Famotidine (Pepcid) 20 mg BID PO Last administered on 12/11/17 19:40; Start at 09:00 Furosemide (Lasix) 40 mg DAILY PO Last administered on 12/11/17 08:06; Start at 09:00 Gabapentin (Neurontin) 300 mg BID PO Last administered on 12/03/17 08:10; Start 11/24/17 at 09:00; Stop 12/03/17 at 19:08; Status DC Gemfibrozil (Lopid) 600 mg BIDWMEALS PO Last administered on 12/11/17 17:29; Start 11/24/17 at 08:00 Glucagon (Glucagen Kit) 1 mg PRN 1X PRN SQ hypoglycemia; Start 11/23/17 at 22: 15 Insulin Human Lispro (HumaLOG) 4 units DAILYWBKFT SQ Last administered on 08:00; Start 11/24/17 at 08:00 Insulin Human Lispro (HumaLOG) 8 units DAILYBFRLUN SQ Last administered on 12:08; Start 11/24/17 at 11:30 Insulin Human Lispro (HumaLOG) 10 units DAILYBFRSUP SQ Last administered on 12/10 17:01; Start 11/24/17 at 17:00 Insulin Glargine (Lantus) 16 units HS SQ Last administered on 12/11/17 19:41; Start 11/23/17 at 23:00 Insulin Glargine (Lantus) 26 units DAILYWBKFT SQ Last administered on 12/11/17 08:00; Start 11/24/17 at 08:00 Lisinopril (Prinivil) 20 mg DAILY PO Last administered on 12/11/17 08:06; Start 11/24/17 at 09:00 Magnesium Oxide (Magnesium Oxide) 400 mg DAILY PO Last administered on 08:06; Start 11/24/17 at 09:00 Sennosides (Senna) 8.6 mg BID PO Last administered on 12/11/17 19:40; Start at 09:00 Tramadol HCl (Ultram) 50 mg PRN Q6HRS PRN PO PAIN Last administered on 10:06; Start 11/23/17 at 22:15 Fluticasone Propionate (Flonase) 2 spray PRN DAILY PRN NS ALLERGIES Last administered on 12/09/17 08:40; Start 11/24/17 at 09:00 Non-Formulary Medication (Gly/Dimeth/ Petrolat,Wht/ Water (Moisturizing Cream)) 1 yong PRN PRN TP skin protectant; Start 11/23/17 at 22:15; Status UNV Non-Formulary Medication (Mag Hydrox/Al Hydrox/Simeth (Mintox Suspension)) 15 ml PRN BID PRN PO gerd; Start 11/23/17 at 22:15; Status UNV Non-Formulary Medication (Magnesium Hydroxide (Milk Of Magnesia)) 2,400 mg PRN DAILY PRN PO CONSTIPATION; Start 11/23/17 at 22:15; Status UNV Multivitamins/ Calcium (Thera-M Plus) 1 tab DAILY PO Last administered on 08:09; Start 11/24/17 at 09:00 Pioglitazone HCl (Actos) 30 mg DAILY PO Last administered on 12/11/17 08:07; Start 11/24/17 at 09:00 Potassium Chloride (Klor-Con) 10 meq DAILY PO Last administered on 12/11/17 08: 06; Start 11/24/17 at 09:00 Simethicone (Gas-X) 120 mg TID PO Last administered on 12/11/17 19:39; Start at 09:00 Divalproex Sodium (Depakote Er) 500 mg HS PO Last administered on 11/26/17 19: 33; Start 11/24/17 at 21:00; Stop 11/27/17 at 18:23; Status DC Phenylephrine/ Shark Liver Oil (Preparation H) 1 supp PRN Q8HRS PRN [place] RECTAL PAIN Last administered on 11/30/17 09:03; Start 11/24/17 at 19:00 Lactobacillus Rhamnosus (Culturelle) 1 cap BID PO Last administered on 19:38; Start 11/25/17 at 21:00 Fluvoxamine Maleate (Luvox) 25 mg HS PO Last administered on 12/01/17 20:56; Start 11/25/17 at 21:00; Stop 12/02/17 at 18:28; Status DC Olanzapine (ZyPREXA ZYDIS) 2.5 mg PRN Q2HR PRN PO PSYCHOSIS Last administered on 12/11/17 10:25; Start 11/25/17 at 18:15 Cyanocobalamin (Vitamin B-12) 1,000 mcg QMONTH IM ; Start 11/26/17 at 09:00; Stop 11/26/17 at 09:00; Status DC Divalproex Sodium (Depakote Er) 1,000 mg HS PO Last administered on 11/29/17 19:22; Start 11/27/17 at 21:00; Stop 11/30/17 at 18:31; Status DC Haloperidol (Haldol) 20 mg DAILY PO Last administered on 12/05/17 09:21; Start 11/28/17 at 09:00; Stop 12/05/17 at 15:45; Status DC Haloperidol (Haldol) 15 mg HS PO Last administered on 12/04/17 19:20; Start at 21:00; Stop 12/05/17 at 15:45; Status DC Polyethylene Glycol (miraLAX) 17 gm DAILY PO ; Start 11/30/17 at 12:30; Stop at 12:30; Status DC Polyethylene Glycol (miraLAX) 17 gm DAILY PO Last administered on 12/11/17 08: 06; Start 11/30/17 at 09:00 Divalproex Sodium (Depakote Er) 1,500 mg HS PO Last administered on 12/11/17 19 :39; Start 11/30/17 at 21:00 Fluvoxamine Maleate (Luvox) 50 mg HS PO Last administered on 12/11/17 19:39; Start 12/02/17 at 21:00 Gabapentin (Neurontin) 300 mg TID PO Last administered on 12/11/17 19:40; Start 12/03/17 at 21:00 Clozapine (Clozaril) 25 mg HS PO Last administered on 12/08/17 19:33; Start at 21:00; Stop 12/09/17 at 18:53; Status DC Haloperidol (Haldol) 15 mg BID PO Last administered on 12/11/17 19:39; Start at 21:00 Clonazepam (KlonoPIN) 0.25 mg BID PO Last administered on 12/09/17at 19:48; Start 12/06/17 at 21:00; Stop 12/09/17 at 22:00; Status DC Artificial Tears (Refresh Classic) 1 drop PRN Q15MIN PRN OU DRY EYE Last administered on 12/11/17at 16:36; Start 12/07/17 at 15:45 Trazodone HCl (Desyrel) 12.5 mg TID@0900,1300,1700 PO Last administered on 17:28; Start 12/08/17 at 09:00 Clozapine (Clozaril) 50 mg HS PO Last administered on 12/11/17at 19:38; Start 12/09/17 at 21:00 Active Scripts Active Reported Tramadol Hcl (Tramadol HCl) 50 Mg Tablet 50 Mg PO PRN Q6HRS PRN Multi Vitamin Daily (Multivitamin) 1 Each Tablet 1 Tab PO DAILY Simethicone 125 Mg Capsule 125 Mg PO TID Senna Lax (Sennosides) 8.6 Mg Tablet 8.6 Mg PO BID Potassium Chloride 10 Meq Tablet.er 10 Meq PO DAILY Actos (Pioglitazone Hcl) 30 Mg Tablet 30 Mg PO DAILY Pepcid (Famotidine) 20 Mg Tablet 20 Mg PO BID Novolog Flexpen (Insulin Aspart) 100 Unit/1 Ml Insuln.pen 8 Units SQ DAILYBFRLUN Novolog Flexpen (Insulin Aspart) 100 Unit/1 Ml Insuln.pen 4 Units SQ DAILYWBKFT Novolog Flexpen (Insulin Aspart) 100 Unit/1 Ml Insuln.pen 10 Unit SQ DAILYBFRSUP Moisturizing Cream (Gly/Dimeth/Petrolat,Wht/Water) 453 Gm Cream..g. 1 Yong TP PRN PRN Mintox Suspension (Mag Hydrox/Al Hydrox/Simeth) 355 Ml Oral.susp 15 Ml PO PRN BID PRN Milk Of Magnesia (Magnesium Hydroxide) 2,400 Mg/10 Ml Oral.susp 2,400 Mg PO PRN DAILY PRN Mapap (Acetaminophen) 500 Mg Tablet 500 Mg PO PRN Q6HRS PRN Magnesium Oxide 400 Mg Tablet 500 Mg PO DAILY Lisinopril 20 Mg Tablet 20 Mg PO DAILY Lipitor (Atorvastatin Calcium) 10 Mg Tablet 10 Mg PO QHS Levemir Flextouch (Insulin Detemir) 100 Unit/1 Ml Insuln.pen 26 Units SQ DAILYWBKFT Levemir Flextouch (Insulin Detemir) 100 Unit/1 Ml Insuln.pen 16 Units SQ HS Lasix (Furosemide) 40 Mg Tablet 40 Mg PO DAILY Haloperidol 10 Mg Tablet 20 Mg PO BID Haloperidol Lactate 5 Mg/1 Ml Vial 5 Mg IJ PRN Q4HRS PRN Glucagen (Glucagon,Human Recombinant) 1 Mg/1 Ml Vial 1 Mg IJ PRN PRN Gemfibrozil 600 Mg Tablet 600 Mg PO BID Gabapentin 300 Mg Capsule 300 Mg PO BID Flonase Allergy Relief (Fluticasone Propionate) 9.9 Ml [place].susp 2 Sprays NS PRN PRN Erythromycin (Erythromycin Base) 250 Mg Tablet 250 Mg PO TIDPC Docusate Sodium 100 Mg Capsule 100 Mg PO DAILY Docusate Sodium 100 Mg Capsule 100 Mg PO PRN DAILY PRN Clonidine Hcl 0.1 Mg Tablet 0.1 Mg PO HS Clonazepam 0.5 Mg Tablet 0.5 Mg PO BID Cetirizine Hcl 10 Mg Tablet 10 Mg PO DAILY Aspirin Ec (Aspirin) 81 Mg Tablet.dr 81 Mg PO DAILY Amlodipine Besylate 10 Mg Tablet 10 Mg PO DAILY Abilify (Aripiprazole) 15 Mg Tablet 15 Mg PO BID I have reviewed the current psychotropics carefully including drug interactions. Risk benefit ratio favors no change other than as noted in my dictated progress note. Diagnosis: Problems: (1) Peripheral neuropathy (2) UTI (urinary tract infection) (3) Skin tear (4) Acute adjustment disorder (5) Anxiety disorder (6) Bipolar affective, mixed, sev w/ psych (7) Schizoaffective disorder, chronic condition with acute exacerbation (8) Schizophrenia, disorganized, subchronic with acute exacerbation JASS HUNG MD December 11, 2017 21:06
--- NOTE | 2017-12-12 04:35 | PN ---
DATE: 12/09/2017 PSYCHIATRIC PROGRESS NOTE This late entry 12/09/2017 covers elements not covered in my initial note 12/09/2017. SUBJECTIVE: I met with the patient in the evening. Overall, the patient remains somewhat anxious, labile, obsessive, back and forth to the nursing window asking for different things. Absolute neutrophil count and CBC were completed and the pharmacist has checked and we are able to increase the Clozaril to 50 mg at bedtime and follow the labs as before. She has vague somatic symptoms. REVIEW OF SYSTEMS: No CV, , pulmonary, eye system symptoms on review. MENTAL STATUS EXAM: Oriented to herself and situation. Speech is coherent, less pressured. Abstraction fair, computation impaired, language function intact. Mood and affect showing some ongoing lability, anxiety, but some improvement. LABORATORIES: Reviewed. IMPRESSION: Unchanged from initial note. PLAN: Increase Clozaril to 50 mg at bedtime once checked with the pharmacy consult. Continue rest unchanged. JASS HUNG MD DR: KATIANA/alicia JOB#: [id number] / [id number]
[2017-12-12 06:23] VITALS: BP 99/58
[2017-12-12] MEDS: POLYETHYLENE GLYCOL 3350 17 GM PACKET. PO SCH (07:58)
[2017-12-12] MEDS: HALOPERIDOL 5 MG TABLET PO SCH ×2 (07:59→20:03)
[2017-12-12] MEDS: GEMFIBROZIL 600 MG TABLET. PO SCH ×2 (07:59→17:00)
[2017-12-12] MEDS: CETIRIZINE HCL 10 MG TABLET PO SCH (07:59)
[2017-12-12] MEDS: LACTOBACILLUS RHAMNOSUS GG 1 CAPSULE. PO SCH ×2 (07:59→20:02)
[2017-12-12] MEDS: SENNOSIDES 8.6 MG TABLET PO SCH ×2 (08:00→20:03)
[2017-12-12] MEDS: POTASSIUM CHLORIDE 10 MEQ TABLET.ER. PO SCH (08:00)
[2017-12-12] MEDS: FAMOTIDINE 20 MG TABLET PO SCH ×2 (08:00→20:03)
[2017-12-12] MEDS: PIOGLITAZONE 15 MG TABLET. PO SCH (08:00)
[2017-12-12] MEDS: DOCUSATE SODIUM 100 MG CAPSULE PO SCH (08:00)
[2017-12-12] MEDS: MAGNESIUM OXIDE 400 MG TABLET PO SCH (08:00)
[2017-12-12] MEDS: MULTIVITAMIN with MINERAL TABLET. PO SCH (08:01)
[2017-12-12] MEDS: ARIPiprazole 15 MG TABLET PO SCH ×2 (08:01→20:00)
[2017-12-12] MEDS: FUROSEMIDE 40 MG TABLET PO SCH (08:01)
[2017-12-12] MEDS: ASPIRIN ENTERIC COATED 81 MG TABLET.DR. PO SCH (08:01)
[2017-12-12] MEDS: traZODone 50 MG TABLET. PO SCH ×3 (08:02→17:00)
[2017-12-12] MEDS: GABAPENTIN 300 MG CAPSULE. PO SCH ×3 (08:02→20:03)
[2017-12-12] MEDS: SIMETHICONE 80 MG TAB.CHEW PO SCH ×3 (08:03→20:02)
[2017-12-12] MEDS: LISINOPRIL 20 MG TABLET PO SCH (08:03)
[2017-12-12] MEDS: amLODIPine BESYLATE 10 MG TABLET PO SCH (08:03)
[2017-12-12] MEDS: POLYVINYL ALCOHOL/POVIDONE/PF OPHTH SOLUTION DROPERETTE. OU PRN (08:06)
[2017-12-12] MEDS: INSULIN GLARGINE 300 UNITS/3 ML INSULN.PEN. SQ SCH ×2 (08:08→20:08)
[2017-12-12] MEDS: INSULIN LISPRO 300 UNITS/3 ML INSULN.PEN. SQ SCH ×3 (08:09→17:00)
[2017-12-12 16:56] VITALS: BP 160/78
--- NOTE | 2017-12-12 17:43 | PN ---
DATE: 12/10/2017 This is a late entry 12/10, covers elements not covered in my initial note. SUBJECTIVE: I met with the patient in the evening, staffed at a treatment team meeting with the entire team in the morning. Sleeping average 7-1/4 hours, quite demanding, frequently back to the nursing station window, having vague somatic symptoms that she cannot see. Dr. Bishop has assessed this. REVIEW OF SYSTEMS: No CV, , pulmonary, eye system symptoms on review. MENTAL STATUS EXAM: Oriented to herself and situation. Speech coherent, rapid at times. Abstraction fair, computation impaired. Mood and affect somewhat labile. LABORATORY DATA: Reviewed. IMPRESSION: Unchanged from initial note. PLAN: Continue current psychotropics. Valproic acid level therapeutic at 67. Adjust as indicated. MAN Prosper HUNG MD DR: KATIANA/alicia JOB#: [id number] / [id number]
[2017-12-12] MEDS: cloZAPine 25 MG TABLET PO SCH (20:01)
[2017-12-12] MEDS: cloNIDine HCL 0.1 MG TABLET PO SCH (20:01)
[2017-12-12] MEDS: DIVALPROEX ER 500 MG TAB.ER.24H PO SCH (20:02)
--- NOTE | 2017-12-12 23:04 | PDOC ---
Exam Note: Tay Note: Please also refer to the separate dictated note~for this date of service dictated separately.~Patient seen individually. Discussed the patient with Nursing staff reviewed the chart.~Reviewed interim history and current functioning. Reviewed vital signs,~Labs/ Radiology~and current medications noted below. Continue current treatment with the changes noted in the dictated addendum note Assessment: Vital Signs: Vital Signs Date Time Temp Pulse Resp B/P (MAP) Pulse Ox O2 Delivery O2 Flow Rate FiO2 12/12/17 20:01 98 160/78 12/12/17 16:56 97.3 16 96 12/10/17 09:28 Room Air I&O Intake and Output 12/12/17 07:00 Intake Total 960 ml Balance 960 ml Intake Oral 960 ml Labs: Laboratory Tests Test 12/12/17 07:44 12/12/17 12:05 12/12/17 16:59 12/12/17 19:33 Glucose (Fingerstick) 192 mg/dL (70-99) H 234 mg/dL (70-99) H 146 mg/dL (70-99) H 125 mg/dL (70-99) H Current Medications: Meds: Current Medications Ciprofloxacin Lactate 200 ml @ 200 mls/hr 1X ONCE IV ; Start 11/23/17 at 16:30 ; Stop 11/23/17 at 16:31; Status DC Ciprofloxacin (Cipro) 500 mg 1X ONCE PO Last administered on 11/23/17at 16:45; Start 11/23/17 at 17:00; Stop 11/23/17 at 17:01; Status DC Acetaminophen (Tylenol) 650 mg PRN Q6HRS PRN PO PAIN / TEMP; Start 11/23/17 at 17:45; Status Cancel Multi-Ingredient Ointment (Analgesic [place]) 1 yong PRN QID PRN TP MUSCLE PAIN; Start 11/23/17 at 17:45 Al Hydroxide/Mg Hydroxide (Mylanta Plus Xs) 15 ml PRN AFTMEALHC PRN PO DYSPEPSIA Last administered on 12/11/17at 09:45; Start 11/23/17 at 17:45 Magnesium Hydroxide (Milk Of Magnesia) 2,400 mg PRN QHS PRN PO CONSTIPATION Last administered on 12/05/17at 14:09; Start 11/23/17 at 17:45 Aripiprazole (Abilify) 15 mg BID PO Last administered on 12/12/17 20:00; Start 11/24/17 at 09:00 Clonazepam (KlonoPIN) 0.5 mg BID PO Last administered on 12/06/17 08:02; Start 11/24/17 at 09:00; Stop 12/06/17 at 18:24; Status DC Haloperidol Lactate (Haldol) 5 mg PRN Q4HRS PRN IM AGITATION; Start 11/23/17 at 22:15 Haloperidol (Haldol) 20 mg BID PO Last administered on 11/27/17 08:57; Start 11/24/17 at 09:00; Stop 11/27/17 at 18:23; Status DC Acetaminophen (Tylenol) 500 mg PRN Q6HRS PRN PO PAIN Last administered on 09:16; Start 11/23/17 at 22:15 Amlodipine Besylate (Norvasc) 10 mg DAILY PO Last administered on 12/11/17 08: 08; Start 11/24/17 at 09:00 Aspirin (Aspirin Enteric Coated) 81 mg DAILY PO Last administered on 12/12/17 08:01; Start 11/24/17 at 09:00 Cetirizine HCl (ZyrTEC) 10 mg DAILY PO Last administered on 12/12/17 07:59; Start 11/24/17 at 09:00 Clonidine HCl (Catapres) 0.1 mg HS PO Last administered on 12/12/17 20:01; Start 11/24/17 at 21:00 Docusate Sodium (Colace) 100 mg DAILY PO Last administered on 12/12/17 08:00; Start 11/24/17 at 09:00 Docusate Sodium (Colace) 100 mg PRN DAILY PRN PO CONSTIPATION; Start 11/23/17 at 22:15 Erythromycin (E-Mycin) 250 mg TIDPC PO Last administered on 11/25/17 16:39; Start 11/24/17 at 08:30; Stop 11/25/17 at 18:49; Status DC Famotidine (Pepcid) 20 mg BID PO Last administered on 12/12/17 20:03; Start at 09:00 Furosemide (Lasix) 40 mg DAILY PO Last administered on 12/12/17 08:01; Start at 09:00 Gabapentin (Neurontin) 300 mg BID PO Last administered on 12/03/17 08:10; Start 11/24/17 at 09:00; Stop 12/03/17 at 19:08; Status DC Gemfibrozil (Lopid) 600 mg BIDWMEALS PO Last administered on 12/12/17 17:00; Start 11/24/17 at 08:00 Glucagon (Glucagen Kit) 1 mg PRN 1X PRN SQ hypoglycemia; Start 11/23/17 at 22: 15 Insulin Human Lispro (HumaLOG) 4 units DAILYWBKFT SQ Last administered on 08:09; Start 11/24/17 at 08:00 Insulin Human Lispro (HumaLOG) 8 units DAILYBFRLUN SQ Last administered on 12:57; Start 11/24/17 at 11:30 Insulin Human Lispro (HumaLOG) 10 units DAILYBFRSUP SQ Last administered on 12/12 17:00; Start 11/24/17 at 17:00 Insulin Glargine (Lantus) 16 units HS SQ Last administered on 12/12/17 20:08; Start 11/23/17 at 23:00 Insulin Glargine (Lantus) 26 units DAILYWBKFT SQ Last administered on 12/12/17 08:08; Start 11/24/17 at 08:00 Lisinopril (Prinivil) 20 mg DAILY PO Last administered on 12/11/17 08:06; Start 11/24/17 at 09:00 Magnesium Oxide (Magnesium Oxide) 400 mg DAILY PO Last administered on 08:00; Start 11/24/17 at 09:00 Sennosides (Senna) 8.6 mg BID PO Last administered on 12/12/17 20:03; Start at 09:00 Tramadol HCl (Ultram) 50 mg PRN Q6HRS PRN PO PAIN Last administered on 10:06; Start 11/23/17 at 22:15 Fluticasone Propionate (Flonase) 2 spray PRN DAILY PRN NS ALLERGIES Last administered on 12/09/17 08:40; Start 11/24/17 at 09:00 Non-Formulary Medication (Gly/Dimeth/ Petrolat,Wht/ Water (Moisturizing Cream)) 1 yogn PRN PRN TP skin protectant; Start 11/23/17 at 22:15; Status UNV Non-Formulary Medication (Mag Hydrox/Al Hydrox/Simeth (Mintox Suspension)) 15 ml PRN BID PRN PO gerd; Start 11/23/17 at 22:15; Status UNV Non-Formulary Medication (Magnesium Hydroxide (Milk Of Magnesia)) 2,400 mg PRN DAILY PRN PO CONSTIPATION; Start 11/23/17 at 22:15; Status UNV Multivitamins/ Calcium (Thera-M Plus) 1 tab DAILY PO Last administered on 08:01; Start 11/24/17 at 09:00 Pioglitazone HCl (Actos) 30 mg DAILY PO Last administered on 12/12/17 08:00; Start 11/24/17 at 09:00 Potassium Chloride (Klor-Con) 10 meq DAILY PO Last administered on 12/12/17 08: 00; Start 11/24/17 at 09:00 Simethicone (Gas-X) 120 mg TID PO Last administered on 12/12/17 20:02; Start at 09:00 Divalproex Sodium (Depakote Er) 500 mg HS PO Last administered on 11/26/17 19: 33; Start 11/24/17 at 21:00; Stop 11/27/17 at 18:23; Status DC Phenylephrine/ Shark Liver Oil (Preparation H) 1 supp PRN Q8HRS PRN [place] RECTAL PAIN Last administered on 11/30/17 09:03; Start 11/24/17 at 19:00 Lactobacillus Rhamnosus (Culturelle) 1 cap BID PO Last administered on 20:02; Start 11/25/17 at 21:00 Fluvoxamine Maleate (Luvox) 25 mg HS PO Last administered on 12/01/17 20:56; Start 11/25/17 at 21:00; Stop 12/02/17 at 18:28; Status DC Olanzapine (ZyPREXA ZYDIS) 2.5 mg PRN Q2HR PRN PO PSYCHOSIS Last administered on 12/11/17 10:25; Start 11/25/17 at 18:15 Cyanocobalamin (Vitamin B-12) 1,000 mcg QMONTH IM ; Start 11/26/17 at 09:00; Stop 11/26/17 at 09:00; Status DC Divalproex Sodium (Depakote Er) 1,000 mg HS PO Last administered on 11/29/17 19:22; Start 11/27/17 at 21:00; Stop 11/30/17 at 18:31; Status DC Haloperidol (Haldol) 20 mg DAILY PO Last administered on 12/05/17 09:21; Start 11/28/17 at 09:00; Stop 12/05/17 at 15:45; Status DC Haloperidol (Haldol) 15 mg HS PO Last administered on 12/04/17 19:20; Start at 21:00; Stop 12/05/17 at 15:45; Status DC Polyethylene Glycol (miraLAX) 17 gm DAILY PO ; Start 11/30/17 at 12:30; Stop at 12:30; Status DC Polyethylene Glycol (miraLAX) 17 gm DAILY PO Last administered on 12/12/17 07: 58; Start 11/30/17 at 09:00 Divalproex Sodium (Depakote Er) 1,500 mg HS PO Last administered on 12/12/17 20 :02; Start 11/30/17 at 21:00 Fluvoxamine Maleate (Luvox) 50 mg HS PO Last administered on 12/12/17 20:03; Start 12/02/17 at 21:00 Gabapentin (Neurontin) 300 mg TID PO Last administered on 12/12/17 20:03; Start 12/03/17 at 21:00 Clozapine (Clozaril) 25 mg HS PO Last administered on 12/08/17 19:33; Start at 21:00; Stop 12/09/17 at 18:53; Status DC Haloperidol (Haldol) 15 mg BID PO Last administered on 12/12/17 20:03; Start at 21:00 Clonazepam (KlonoPIN) 0.25 mg BID PO Last administered on 5/2/18at 19:48; Start 12/06/17 at 21:00; Stop 12/09/17 at 22:00; Status DC Artificial Tears (Refresh Classic) 1 drop PRN Q15MIN PRN OU DRY EYE Last administered on 12/12/17 08:06; Start 12/07/17 at 15:45 Trazodone HCl (Desyrel) 12.5 mg TID@0900,1300,1700 PO Last administered on 17:00; Start 12/08/17 at 09:00 Clozapine (Clozaril) 50 mg HS PO Last administered on 12/12/17 20:01; Start 12/09/17 at 21:00 Active Scripts Active Reported Tramadol Hcl (Tramadol HCl) 50 Mg Tablet 50 Mg PO PRN Q6HRS PRN Multi Vitamin Daily (Multivitamin) 1 Each Tablet 1 Tab PO DAILY Simethicone 125 Mg Capsule 125 Mg PO TID Senna Lax (Sennosides) 8.6 Mg Tablet 8.6 Mg PO BID Potassium Chloride 10 Meq Tablet.er 10 Meq PO DAILY Actos (Pioglitazone Hcl) 30 Mg Tablet 30 Mg PO DAILY Pepcid (Famotidine) 20 Mg Tablet 20 Mg PO BID Novolog Flexpen (Insulin Aspart) 100 Unit/1 Ml Insuln.pen 8 Units SQ DAILYBFRLUN Novolog Flexpen (Insulin Aspart) 100 Unit/1 Ml Insuln.pen 4 Units SQ DAILYWBKFT Novolog Flexpen (Insulin Aspart) 100 Unit/1 Ml Insuln.pen 10 Unit SQ DAILYBFRSUP Moisturizing Cream (Gly/Dimeth/Petrolat,Wht/Water) 453 Gm Cream..g. 1 Yong TP PRN PRN Mintox Suspension (Mag Hydrox/Al Hydrox/Simeth) 355 Ml Oral.susp 15 Ml PO PRN BID PRN Milk Of Magnesia (Magnesium Hydroxide) 2,400 Mg/10 Ml Oral.susp 2,400 Mg PO PRN DAILY PRN Mapap (Acetaminophen) 500 Mg Tablet 500 Mg PO PRN Q6HRS PRN Magnesium Oxide 400 Mg Tablet 500 Mg PO DAILY Lisinopril 20 Mg Tablet 20 Mg PO DAILY Lipitor (Atorvastatin Calcium) 10 Mg Tablet 10 Mg PO QHS Levemir Flextouch (Insulin Detemir) 100 Unit/1 Ml Insuln.pen 26 Units SQ DAILYWBKFT Levemir Flextouch (Insulin Detemir) 100 Unit/1 Ml Insuln.pen 16 Units SQ HS Lasix (Furosemide) 40 Mg Tablet 40 Mg PO DAILY Haloperidol 10 Mg Tablet 20 Mg PO BID Haloperidol Lactate 5 Mg/1 Ml Vial 5 Mg IJ PRN Q4HRS PRN Glucagen (Glucagon,Human Recombinant) 1 Mg/1 Ml Vial 1 Mg IJ PRN PRN Gemfibrozil 600 Mg Tablet 600 Mg PO BID Gabapentin 300 Mg Capsule 300 Mg PO BID Flonase Allergy Relief (Fluticasone Propionate) 9.9 Ml [place].susp 2 Sprays NS PRN PRN Erythromycin (Erythromycin Base) 250 Mg Tablet 250 Mg PO TIDPC Docusate Sodium 100 Mg Capsule 100 Mg PO DAILY Docusate Sodium 100 Mg Capsule 100 Mg PO PRN DAILY PRN Clonidine Hcl 0.1 Mg Tablet 0.1 Mg PO HS Clonazepam 0.5 Mg Tablet 0.5 Mg PO BID Cetirizine Hcl 10 Mg Tablet 10 Mg PO DAILY Aspirin Ec (Aspirin) 81 Mg Tablet.dr 81 Mg PO DAILY Amlodipine Besylate 10 Mg Tablet 10 Mg PO DAILY Abilify (Aripiprazole) 15 Mg Tablet 15 Mg PO BID I have reviewed the current psychotropics carefully including drug interactions. Risk benefit ratio favors no change other than as noted in my dictated progress note. Diagnosis: Problems: (1) Peripheral neuropathy (2) UTI (urinary tract infection) (3) Skin tear (4) Acute adjustment disorder (5) Anxiety disorder (6) Bipolar affective, mixed, sev w/ psych (7) Schizoaffective disorder, chronic condition with acute exacerbation (8) Schizophrenia, disorganized, subchronic with acute exacerbation JASS HUNG MD December 12, 2017 23:04
[2017-12-13 06:26] VITALS: BP 115/56
[2017-12-13] MEDS: INSULIN GLARGINE 300 UNITS/3 ML INSULN.PEN. SQ SCH ×2 (08:00→20:48)
[2017-12-13] MEDS: POLYETHYLENE GLYCOL 3350 17 GM PACKET. PO SCH (08:00)
[2017-12-13] MEDS: ARIPiprazole 15 MG TABLET PO SCH ×2 (08:00→19:51)
[2017-12-13] MEDS: GEMFIBROZIL 600 MG TABLET. PO SCH ×2 (08:00→17:00)
[2017-12-13] MEDS: FAMOTIDINE 20 MG TABLET PO SCH ×2 (08:00→19:52)
[2017-12-13] MEDS: INSULIN LISPRO 300 UNITS/3 ML INSULN.PEN. SQ SCH ×3 (08:00→17:00)
[2017-12-13] MEDS: SIMETHICONE 80 MG TAB.CHEW PO SCH ×3 (08:01→19:51)
[2017-12-13] MEDS: DOCUSATE SODIUM 100 MG CAPSULE PO SCH (08:01)
[2017-12-13] MEDS: POTASSIUM CHLORIDE 10 MEQ TABLET.ER. PO SCH (08:01)
[2017-12-13] MEDS: MULTIVITAMIN with MINERAL TABLET. PO SCH (08:01)
[2017-12-13] MEDS: FUROSEMIDE 40 MG TABLET PO SCH (08:01)
[2017-12-13] MEDS: amLODIPine BESYLATE 10 MG TABLET PO SCH (08:01)
[2017-12-13] MEDS: MAGNESIUM OXIDE 400 MG TABLET PO SCH (08:02)
[2017-12-13] MEDS: traZODone 50 MG TABLET. PO SCH ×3 (08:02→17:00)
[2017-12-13] MEDS: HALOPERIDOL 5 MG TABLET PO SCH ×2 (08:02→19:51)
[2017-12-13] MEDS: GABAPENTIN 300 MG CAPSULE. PO SCH ×3 (08:02→19:52)
[2017-12-13] MEDS: LISINOPRIL 20 MG TABLET PO SCH (08:02)
[2017-12-13] MEDS: ASPIRIN ENTERIC COATED 81 MG TABLET.DR. PO SCH (08:02)
[2017-12-13] MEDS: LACTOBACILLUS RHAMNOSUS GG 1 CAPSULE. PO SCH (08:02)
[2017-12-13] MEDS: CETIRIZINE HCL 10 MG TABLET PO SCH (08:02)
[2017-12-13] MEDS: PIOGLITAZONE 15 MG TABLET. PO SCH (08:03)
[2017-12-13] MEDS: SENNOSIDES 8.6 MG TABLET PO SCH ×2 (08:03→19:50)
[2017-12-13 16:40] VITALS: BP 174/81
--- NOTE | 2017-12-13 18:49 | PDOC ---
Exam Note: Tay Note: Please also refer to the separate dictated note~for this date of service dictated separately.~Patient seen individually. Discussed the patient with Nursing staff reviewed the chart.~Reviewed interim history and current functioning. Reviewed vital signs,~Labs/ Radiology~and current medications noted below. Continue current treatment with the changes noted in the dictated addendum note Assessment: Vital Signs: Vital Signs Date Time Temp Pulse Resp B/P (MAP) Pulse Ox O2 Delivery O2 Flow Rate FiO2 12/13/17 16:40 96.9 77 20 174/81 (112) 100 12/10/17 09:28 Room Air I&O Intake and Output 12/13/17 07:00 Intake Total 720 ml Balance 720 ml Intake Oral 720 ml # Bowel Movements 1 Labs: Laboratory Tests Test 12/12/17 19:33 12/13/17 07:15 12/13/17 11:10 12/13/17 16:37 Glucose (Fingerstick) 125 mg/dL (70-99) H 80 mg/dL (70-99) 157 mg/dL (70-99) H 183 mg/dL (70-99) H Current Medications: Meds: Current Medications Ciprofloxacin Lactate 200 ml @ 200 mls/hr 1X ONCE IV ; Start 11/23/17 at 16:30 ; Stop 11/23/17 at 16:31; Status DC Ciprofloxacin (Cipro) 500 mg 1X ONCE PO Last administered on 11/23/17at 16:45; Start 11/23/17 at 17:00; Stop 11/23/17 at 17:01; Status DC Acetaminophen (Tylenol) 650 mg PRN Q6HRS PRN PO PAIN / TEMP; Start 11/23/17 at 17:45; Status Cancel Multi-Ingredient Ointment (Analgesic [place]) 1 yong PRN QID PRN TP MUSCLE PAIN; Start 11/23/17 at 17:45 Al Hydroxide/Mg Hydroxide (Mylanta Plus Xs) 15 ml PRN AFTMEALHC PRN PO DYSPEPSIA Last administered on 12/11/17at 09:45; Start 11/23/17 at 17:45 Magnesium Hydroxide (Milk Of Magnesia) 2,400 mg PRN QHS PRN PO CONSTIPATION Last administered on 12/05/17at 14:09; Start 11/23/17 at 17:45 Aripiprazole (Abilify) 15 mg BID PO Last administered on 12/13/17 08:00; Start 11/24/17 at 09:00 Clonazepam (KlonoPIN) 0.5 mg BID PO Last administered on 12/06/17 08:02; Start 11/24/17 at 09:00; Stop 12/06/17 at 18:24; Status DC Haloperidol Lactate (Haldol) 5 mg PRN Q4HRS PRN IM AGITATION; Start 11/23/17 at 22:15 Haloperidol (Haldol) 20 mg BID PO Last administered on 11/27/17 08:57; Start 11/24/17 at 09:00; Stop 11/27/17 at 18:23; Status DC Acetaminophen (Tylenol) 500 mg PRN Q6HRS PRN PO PAIN Last administered on 09:16; Start 11/23/17 at 22:15 Amlodipine Besylate (Norvasc) 10 mg DAILY PO Last administered on 12/13/17 08: 01; Start 11/24/17 at 09:00 Aspirin (Aspirin Enteric Coated) 81 mg DAILY PO Last administered on 12/13/17 08:02; Start 11/24/17 at 09:00 Cetirizine HCl (ZyrTEC) 10 mg DAILY PO Last administered on 12/13/17 08:02; Start 11/24/17 at 09:00 Clonidine HCl (Catapres) 0.1 mg HS PO Last administered on 12/12/17 20:01; Start 11/24/17 at 21:00 Docusate Sodium (Colace) 100 mg DAILY PO Last administered on 12/13/17 08:01; Start 11/24/17 at 09:00 Docusate Sodium (Colace) 100 mg PRN DAILY PRN PO CONSTIPATION; Start 11/23/17 at 22:15 Erythromycin (E-Mycin) 250 mg TIDPC PO Last administered on 11/25/17 16:39; Start 11/24/17 at 08:30; Stop 11/25/17 at 18:49; Status DC Famotidine (Pepcid) 20 mg BID PO Last administered on 12/13/17 08:00; Start at 09:00 Furosemide (Lasix) 40 mg DAILY PO Last administered on 12/13/17 08:01; Start at 09:00 Gabapentin (Neurontin) 300 mg BID PO Last administered on 12/03/17 08:10; Start 11/24/17 at 09:00; Stop 12/03/17 at 19:08; Status DC Gemfibrozil (Lopid) 600 mg BIDWMEALS PO Last administered on 12/13/17 17:00; Start 11/24/17 at 08:00 Glucagon (Glucagen Kit) 1 mg PRN 1X PRN SQ hypoglycemia; Start 11/23/17 at 22: 15 Insulin Human Lispro (HumaLOG) 4 units DAILYWBKFT SQ Last administered on 08:00; Start 11/24/17 at 08:00 Insulin Human Lispro (HumaLOG) 8 units DAILYBFRLUN SQ Last administered on 11:30; Start 11/24/17 at 11:30 Insulin Human Lispro (HumaLOG) 10 units DAILYBFRSUP SQ Last administered on 12/13 17:00; Start 11/24/17 at 17:00 Insulin Glargine (Lantus) 16 units HS SQ Last administered on 12/12/17 20:08; Start 11/23/17 at 23:00 Insulin Glargine (Lantus) 26 units DAILYWBKFT SQ Last administered on 12/13/17 08:00; Start 11/24/17 at 08:00 Lisinopril (Prinivil) 20 mg DAILY PO Last administered on 12/13/17 08:02; Start 11/24/17 at 09:00 Magnesium Oxide (Magnesium Oxide) 400 mg DAILY PO Last administered on 08:02; Start 11/24/17 at 09:00 Sennosides (Senna) 8.6 mg BID PO Last administered on 12/13/17 08:03; Start at 09:00 Tramadol HCl (Ultram) 50 mg PRN Q6HRS PRN PO PAIN Last administered on 10:06; Start 11/23/17 at 22:15 Fluticasone Propionate (Flonase) 2 spray PRN DAILY PRN NS ALLERGIES Last administered on 5/2/18at 08:40; Start 11/24/17 at 09:00 Non-Formulary Medication (Gly/Dimeth/ Petrolat,Wht/ Water (Moisturizing Cream)) 1 yong PRN PRN TP skin protectant; Start 11/23/17 at 22:15; Status UNV Non-Formulary Medication (Mag Hydrox/Al Hydrox/Simeth (Mintox Suspension)) 15 ml PRN BID PRN PO gerd; Start 11/23/17 at 22:15; Status UNV Non-Formulary Medication (Magnesium Hydroxide (Milk Of Magnesia)) 2,400 mg PRN DAILY PRN PO CONSTIPATION; Start 11/23/17 at 22:15; Status UNV Multivitamins/ Calcium (Thera-M Plus) 1 tab DAILY PO Last administered on 08:01; Start 11/24/17 at 09:00 Pioglitazone HCl (Actos) 30 mg DAILY PO Last administered on 12/13/17 08:03; Start 11/24/17 at 09:00 Potassium Chloride (Klor-Con) 10 meq DAILY PO Last administered on 12/13/17 08: 01; Start 11/24/17 at 09:00 Simethicone (Gas-X) 120 mg TID PO Last administered on 12/13/17 13:57; Start at 09:00 Divalproex Sodium (Depakote Er) 500 mg HS PO Last administered on 11/26/17 19: 33; Start 11/24/17 at 21:00; Stop 11/27/17 at 18:23; Status DC Phenylephrine/ Shark Liver Oil (Preparation H) 1 supp PRN Q8HRS PRN [place] RECTAL PAIN Last administered on 11/30/17 09:03; Start 11/24/17 at 19:00 Lactobacillus Rhamnosus (Culturelle) 1 cap BID PO Last administered on 08:02; Start 11/25/17 at 21:00; Stop 12/13/17 at 13:56; Status DC Fluvoxamine Maleate (Luvox) 25 mg HS PO Last administered on 12/01/17 20:56; Start 11/25/17 at 21:00; Stop 12/02/17 at 18:28; Status DC Olanzapine (ZyPREXA ZYDIS) 2.5 mg PRN Q2HR PRN PO PSYCHOSIS Last administered on 12/11/17 10:25; Start 11/25/17 at 18:15 Cyanocobalamin (Vitamin B-12) 1,000 mcg QMONTH IM ; Start 11/26/17 at 09:00; Stop 11/26/17 at 09:00; Status DC Divalproex Sodium (Depakote Er) 1,000 mg HS PO Last administered on 11/29/17 19:22; Start 11/27/17 at 21:00; Stop 11/30/17 at 18:31; Status DC Haloperidol (Haldol) 20 mg DAILY PO Last administered on 12/05/17 09:21; Start 11/28/17 at 09:00; Stop 12/05/17 at 15:45; Status DC Haloperidol (Haldol) 15 mg HS PO Last administered on 12/04/17 19:20; Start at 21:00; Stop 12/05/17 at 15:45; Status DC Polyethylene Glycol (miraLAX) 17 gm DAILY PO ; Start 11/30/17 at 12:30; Stop at 12:30; Status DC Polyethylene Glycol (miraLAX) 17 gm DAILY PO Last administered on 12/13/17 08: 00; Start 11/30/17 at 09:00 Divalproex Sodium (Depakote Er) 1,500 mg HS PO Last administered on 12/12/17 20 :02; Start 11/30/17 at 21:00 Fluvoxamine Maleate (Luvox) 50 mg HS PO Last administered on 12/12/17 20:03; Start 12/02/17 at 21:00 Gabapentin (Neurontin) 300 mg TID PO Last administered on 12/13/17 13:57; Start 12/03/17 at 21:00 Clozapine (Clozaril) 25 mg HS PO Last administered on 12/08/17 19:33; Start at 21:00; Stop 12/09/17 at 18:53; Status DC Haloperidol (Haldol) 15 mg BID PO Last administered on 12/13/17 08:02; Start at 21:00 Clonazepam (KlonoPIN) 0.25 mg BID PO Last administered on 12/09/17at 19:48; Start 12/06/17 at 21:00; Stop 12/09/17 at 22:00; Status DC Artificial Tears (Refresh Classic) 1 drop PRN Q15MIN PRN OU DRY EYE Last administered on 12/12/17at 08:06; Start 12/07/17 at 15:45 Trazodone HCl (Desyrel) 12.5 mg TID@0900,1300,1700 PO Last administered on at 17:00; Start 12/08/17 at 09:00 Clozapine (Clozaril) 50 mg HS PO Last administered on 12/12/17at 20:01; Start 12/09/17 at 21:00 Active Scripts Active Reported Tramadol Hcl (Tramadol HCl) 50 Mg Tablet 50 Mg PO PRN Q6HRS PRN Multi Vitamin Daily (Multivitamin) 1 Each Tablet 1 Tab PO DAILY Simethicone 125 Mg Capsule 125 Mg PO TID Senna Lax (Sennosides) 8.6 Mg Tablet 8.6 Mg PO BID Potassium Chloride 10 Meq Tablet.er 10 Meq PO DAILY Actos (Pioglitazone Hcl) 30 Mg Tablet 30 Mg PO DAILY Pepcid (Famotidine) 20 Mg Tablet 20 Mg PO BID Novolog Flexpen (Insulin Aspart) 100 Unit/1 Ml Insuln.pen 8 Units SQ DAILYBFRLUN Novolog Flexpen (Insulin Aspart) 100 Unit/1 Ml Insuln.pen 4 Units SQ DAILYWBKFT Novolog Flexpen (Insulin Aspart) 100 Unit/1 Ml Insuln.pen 10 Unit SQ DAILYBFRSUP Moisturizing Cream (Gly/Dimeth/Petrolat,Wht/Water) 453 Gm Cream..g. 1 Yong TP PRN PRN Mintox Suspension (Mag Hydrox/Al Hydrox/Simeth) 355 Ml Oral.susp 15 Ml PO PRN BID PRN Milk Of Magnesia (Magnesium Hydroxide) 2,400 Mg/10 Ml Oral.susp 2,400 Mg PO PRN DAILY PRN Mapap (Acetaminophen) 500 Mg Tablet 500 Mg PO PRN Q6HRS PRN Magnesium Oxide 400 Mg Tablet 500 Mg PO DAILY Lisinopril 20 Mg Tablet 20 Mg PO DAILY Lipitor (Atorvastatin Calcium) 10 Mg Tablet 10 Mg PO QHS Levemir Flextouch (Insulin Detemir) 100 Unit/1 Ml Insuln.pen 26 Units SQ DAILYWBKFT Levemir Flextouch (Insulin Detemir) 100 Unit/1 Ml Insuln.pen 16 Units SQ HS Lasix (Furosemide) 40 Mg Tablet 40 Mg PO DAILY Haloperidol 10 Mg Tablet 20 Mg PO BID Haloperidol Lactate 5 Mg/1 Ml Vial 5 Mg IJ PRN Q4HRS PRN Glucagen (Glucagon,Human Recombinant) 1 Mg/1 Ml Vial 1 Mg IJ PRN PRN Gemfibrozil 600 Mg Tablet 600 Mg PO BID Gabapentin 300 Mg Capsule 300 Mg PO BID Flonase Allergy Relief (Fluticasone Propionate) 9.9 Ml [place].susp 2 Sprays NS PRN PRN Erythromycin (Erythromycin Base) 250 Mg Tablet 250 Mg PO TIDPC Docusate Sodium 100 Mg Capsule 100 Mg PO DAILY Docusate Sodium 100 Mg Capsule 100 Mg PO PRN DAILY PRN Clonidine Hcl 0.1 Mg Tablet 0.1 Mg PO HS Clonazepam 0.5 Mg Tablet 0.5 Mg PO BID Cetirizine Hcl 10 Mg Tablet 10 Mg PO DAILY Aspirin Ec (Aspirin) 81 Mg Tablet.dr 81 Mg PO DAILY Amlodipine Besylate 10 Mg Tablet 10 Mg PO DAILY Abilify (Aripiprazole) 15 Mg Tablet 15 Mg PO BID I have reviewed the current psychotropics carefully including drug interactions. Risk benefit ratio favors no change other than as noted in my dictated progress note. Diagnosis: Problems: (1) Schizophrenia, disorganized, subchronic with acute exacerbation (2) Schizoaffective disorder, chronic condition with acute exacerbation (3) Bipolar affective, mixed, sev w/ psych (4) Anxiety disorder (5) Acute adjustment disorder JASS HUNG MD December 13, 2017 18:49
[2017-12-13] MEDS: cloZAPine 25 MG TABLET PO SCH (19:52)
[2017-12-13] MEDS: DIVALPROEX ER 500 MG TAB.ER.24H PO SCH (19:52)
[2017-12-13] MEDS: cloNIDine HCL 0.1 MG TABLET PO SCH (19:52)
[2017-12-14 06:29] VITALS: BP 113/50
[2017-12-14] MEDS: GABAPENTIN 300 MG CAPSULE. PO SCH ×3 (08:04→19:26)
[2017-12-14] MEDS: FUROSEMIDE 40 MG TABLET PO SCH (08:05)
[2017-12-14] MEDS: MULTIVITAMIN with MINERAL TABLET. PO SCH (08:05)
[2017-12-14] MEDS: MAGNESIUM OXIDE 400 MG TABLET PO SCH (08:05)
[2017-12-14] MEDS: HALOPERIDOL 5 MG TABLET PO SCH ×2 (08:05→19:21)
[2017-12-14] MEDS: GEMFIBROZIL 600 MG TABLET. PO SCH ×2 (08:07→17:19)
[2017-12-14] MEDS: DOCUSATE SODIUM 100 MG CAPSULE PO SCH (08:07)
[2017-12-14] MEDS: SIMETHICONE 80 MG TAB.CHEW PO SCH ×3 (08:07→19:26)
[2017-12-14] MEDS: POLYETHYLENE GLYCOL 3350 17 GM PACKET. PO SCH (08:07)
[2017-12-14] MEDS: CETIRIZINE HCL 10 MG TABLET PO SCH (08:07)
[2017-12-14] MEDS: traZODone 50 MG TABLET. PO SCH ×3 (08:08→17:20)
[2017-12-14] MEDS: ASPIRIN ENTERIC COATED 81 MG TABLET.DR. PO SCH (08:08)
[2017-12-14] MEDS: POTASSIUM CHLORIDE 10 MEQ TABLET.ER. PO SCH (08:09)
[2017-12-14] MEDS: ARIPiprazole 15 MG TABLET PO SCH ×2 (08:09→19:32)
[2017-12-14] MEDS: FAMOTIDINE 20 MG TABLET PO SCH ×2 (08:09→19:26)
[2017-12-14] MEDS: SENNOSIDES 8.6 MG TABLET PO SCH ×2 (08:09→19:26)
[2017-12-14] MEDS: PIOGLITAZONE 15 MG TABLET. PO SCH (08:09)
[2017-12-14] MEDS: LISINOPRIL 20 MG TABLET PO SCH (08:10)
[2017-12-14] MEDS: amLODIPine BESYLATE 10 MG TABLET PO SCH (08:10)
[2017-12-14] MEDS: INSULIN LISPRO 300 UNITS/3 ML INSULN.PEN. SQ SCH ×3 (08:20→17:23)
[2017-12-14] MEDS: INSULIN GLARGINE 300 UNITS/3 ML INSULN.PEN. SQ SCH ×2 (08:21→19:35)
[2017-12-14 10:43] LABS: BASO % 1 % (0-3); EOS # 0.3 x10^3/uL (0.0-0.7); EOS % 6 % (0-3); HEMATOCRIT 36.1 % (36.0-47.0); HEMOGLOBIN 11.5 g/dL (12.0-15.5); LYMPH # 1.6 x10^3/uL (1.0-4.8); LYMPH % 37 % (24-48); MEAN CORPUSCULAR HEMOGLOBIN 27 pg (25-35); MEAN CORPUSCULAR HGB CONC 32 g/dL (31-37); MEAN CORPUSCULAR VOLUME 86 fL (79-100); MONO # 0.4 x10^3/uL (0.0-1.1); MONO % 10 % (0-9); NEUT # 2.1 x10^3uL (1.8-7.7); NEUT % 47 % (31-73); PLATELET COUNT 291 x10^3/uL (140-400); RED BLOOD COUNT 4.23 x10^6/uL (3.50-5.40); RED CELL DISTRIBUTION WIDTH 16.5 % (11.5-14.5); WHITE BLOOD COUNT 4.4 x10^3/uL (4.0-11.0)
[2017-12-14 16:32] VITALS: BP 164/76
[2017-12-14] MEDS: DIVALPROEX ER 500 MG TAB.ER.24H PO SCH (19:26)
[2017-12-14] MEDS: cloNIDine HCL 0.1 MG TABLET PO SCH (19:27)
[2017-12-14] MEDS: cloZAPine 25 MG TABLET PO SCH (19:33)
--- NOTE | 2017-12-14 20:59 | PDOC ---
Exam Note: Tay Note: Please also refer to the separate dictated note~for this date of service dictated separately.~Patient seen individually. Discussed the patient with Nursing staff reviewed the chart.~Reviewed interim history and current functioning. Reviewed vital signs,~Labs/ Radiology~and current medications noted below. Continue current treatment with the changes noted in the dictated addendum note Assessment: Vital Signs: Vital Signs Date Time Temp Pulse Resp B/P (MAP) Pulse Ox O2 Delivery O2 Flow Rate FiO2 12/14/17 19:27 71 164/76 12/14/17 16:32 97.2 16 97 12/10/17 09:28 Room Air I&O Intake and Output 12/14/17 07:00 Intake Total 956 ml Balance 956 ml Intake Oral 956 ml # Bowel Movements 1 Labs: Laboratory Tests Test 12/14/17 07:23 12/14/17 09:59 12/14/17 11:44 12/14/17 16:53 Glucose (Fingerstick) 133 mg/dL (70-99) H 148 mg/dL (70-99) H 83 mg/dL (70-99) White Blood Count 4.4 x10^3/uL (4.0-11.0) Red Blood Count 4.23 x10^6/uL (3.50-5.40) Hemoglobin 11.5 g/dL (12.0-15.5) L Hematocrit 36.1 % (36.0-47.0) Mean Corpuscular Volume 86 fL (79-100) Mean Corpuscular Hemoglobin 27 pg (25-35) Mean Corpuscular Hemoglobin Concent 32 g/dL (31-37) Red Cell Distribution Width 16.5 % (11.5-14.5) H Platelet Count 291 x10^3/uL (140-400) Neutrophils (%) (Auto) 47 % (31-73) Lymphocytes (%) (Auto) 37 % (24-48) Monocytes (%) (Auto) 10 % (0-9) H Eosinophils (%) (Auto) 6 % (0-3) H Basophils (%) (Auto) 1 % (0-3) Neutrophils # (Auto) 2.1 x10^3uL (1.8-7.7) Lymphocytes # (Auto) 1.6 x10^3/uL (1.0-4.8) Monocytes # (Auto) 0.4 x10^3/uL (0.0-1.1) Eosinophils # (Auto) 0.3 x10^3/uL (0.0-0.7) Basophils # (Auto) 0.0 x10^3/uL (0.0-0.2) Test 12/14/17 19:07 Glucose (Fingerstick) 139 mg/dL (70-99) H Current Medications: Meds: Current Medications Ciprofloxacin Lactate 200 ml @ 200 mls/hr 1X ONCE IV ; Start 11/23/17 at 16:30 ; Stop 11/23/17 at 16:31; Status DC Ciprofloxacin (Cipro) 500 mg 1X ONCE PO Last administered on 11/23/17at 16:45; Start 11/23/17 at 17:00; Stop 11/23/17 at 17:01; Status DC Acetaminophen (Tylenol) 650 mg PRN Q6HRS PRN PO PAIN / TEMP; Start 11/23/17 at 17:45; Status Cancel Multi-Ingredient Ointment (Analgesic Weeping Water) 1 yong PRN QID PRN TP MUSCLE PAIN; Start 11/23/17 at 17:45 Al Hydroxide/Mg Hydroxide (Mylanta Plus Xs) 15 ml PRN AFTMEALHC PRN PO DYSPEPSIA Last administered on 12/11/17at 09:45; Start 11/23/17 at 17:45 Magnesium Hydroxide (Milk Of Magnesia) 2,400 mg PRN QHS PRN PO CONSTIPATION Last administered on 12/05/17at 14:09; Start 11/23/17 at 17:45 Aripiprazole (Abilify) 15 mg BID PO Last administered on 12/14/17at 19:32; Start 11/24/17 at 09:00 Clonazepam (KlonoPIN) 0.5 mg BID PO Last administered on 12/06/17at 08:02; Start 11/24/17 at 09:00; Stop 12/06/17 at 18:24; Status DC Haloperidol Lactate (Haldol) 5 mg PRN Q4HRS PRN IM AGITATION; Start 11/23/17 at 22:15 Haloperidol (Haldol) 20 mg BID PO Last administered on 11/27/17at 08:57; Start 11/24/17 at 09:00; Stop 11/27/17 at 18:23; Status DC Acetaminophen (Tylenol) 500 mg PRN Q6HRS PRN PO PAIN Last administered on 09:16; Start 11/23/17 at 22:15 Amlodipine Besylate (Norvasc) 10 mg DAILY PO Last administered on 12/14/17 08: 10; Start 11/24/17 at 09:00 Aspirin (Aspirin Enteric Coated) 81 mg DAILY PO Last administered on 12/14/17 08:08; Start 11/24/17 at 09:00 Cetirizine HCl (ZyrTEC) 10 mg DAILY PO Last administered on 12/14/17 08:07; Start 11/24/17 at 09:00 Clonidine HCl (Catapres) 0.1 mg HS PO Last administered on 12/14/17 19:27; Start 11/24/17 at 21:00 Docusate Sodium (Colace) 100 mg DAILY PO Last administered on 12/14/17 08:07; Start 11/24/17 at 09:00 Docusate Sodium (Colace) 100 mg PRN DAILY PRN PO CONSTIPATION; Start 11/23/17 at 22:15 Erythromycin (E-Mycin) 250 mg TIDPC PO Last administered on 11/25/17 16:39; Start 11/24/17 at 08:30; Stop 11/25/17 at 18:49; Status DC Famotidine (Pepcid) 20 mg BID PO Last administered on 12/14/17 19:26; Start at 09:00 Furosemide (Lasix) 40 mg DAILY PO Last administered on 12/14/17 08:05; Start at 09:00 Gabapentin (Neurontin) 300 mg BID PO Last administered on 12/03/17 08:10; Start 11/24/17 at 09:00; Stop 12/03/17 at 19:08; Status DC Gemfibrozil (Lopid) 600 mg BIDWMEALS PO Last administered on 12/14/17 17:19; Start 11/24/17 at 08:00 Glucagon (Glucagen Kit) 1 mg PRN 1X PRN SQ hypoglycemia; Start 11/23/17 at 22: 15 Insulin Human Lispro (HumaLOG) 4 units DAILYWBKFT SQ Last administered on 08:20; Start 11/24/17 at 08:00 Insulin Human Lispro (HumaLOG) 8 units DAILYBFRLUN SQ Last administered on 12:16; Start 11/24/17 at 11:30 Insulin Human Lispro (HumaLOG) 10 units DAILYBFRSUP SQ Last administered on 12/14 17:23; Start 11/24/17 at 17:00 Insulin Glargine (Lantus) 16 units HS SQ Last administered on 12/14/17 19:35; Start 11/23/17 at 23:00 Insulin Glargine (Lantus) 26 units DAILYWBKFT SQ Last administered on 12/14/17 08:21; Start 11/24/17 at 08:00 Lisinopril (Prinivil) 20 mg DAILY PO Last administered on 12/14/17 08:10; Start 11/24/17 at 09:00 Magnesium Oxide (Magnesium Oxide) 400 mg DAILY PO Last administered on 08:05; Start 11/24/17 at 09:00 Sennosides (Senna) 8.6 mg BID PO Last administered on 12/14/17 19:26; Start at 09:00 Tramadol HCl (Ultram) 50 mg PRN Q6HRS PRN PO PAIN Last administered on 10:06; Start 11/23/17 at 22:15 Fluticasone Propionate (Flonase) 2 spray PRN DAILY PRN NS ALLERGIES Last administered on 12/09/17 08:40; Start 11/24/17 at 09:00 Non-Formulary Medication (Gly/Dimeth/ Petrolat,Wht/ Water (Moisturizing Cream)) 1 yong PRN PRN TP skin protectant; Start 11/23/17 at 22:15; Status UNV Non-Formulary Medication (Mag Hydrox/Al Hydrox/Simeth (Mintox Suspension)) 15 ml PRN BID PRN PO gerd; Start 11/23/17 at 22:15; Status UNV Non-Formulary Medication (Magnesium Hydroxide (Milk Of Magnesia)) 2,400 mg PRN DAILY PRN PO CONSTIPATION; Start 11/23/17 at 22:15; Status UNV Multivitamins/ Calcium (Thera-M Plus) 1 tab DAILY PO Last administered on 08:05; Start 11/24/17 at 09:00 Pioglitazone HCl (Actos) 30 mg DAILY PO Last administered on 12/14/17 08:09; Start 11/24/17 at 09:00 Potassium Chloride (Klor-Con) 10 meq DAILY PO Last administered on 12/14/17 08: 09; Start 11/24/17 at 09:00 Simethicone (Gas-X) 120 mg TID PO Last administered on 12/14/17 19:26; Start at 09:00 Divalproex Sodium (Depakote Er) 500 mg HS PO Last administered on 11/26/17 19: 33; Start 11/24/17 at 21:00; Stop 11/27/17 at 18:23; Status DC Phenylephrine/ Shark Liver Oil (Preparation H) 1 supp PRN Q8HRS PRN VA RECTAL PAIN Last administered on 11/30/17 09:03; Start 11/24/17 at 19:00 Lactobacillus Rhamnosus (Culturelle) 1 cap BID PO Last administered on 08:02; Start 11/25/17 at 21:00; Stop 12/13/17 at 13:56; Status DC Fluvoxamine Maleate (Luvox) 25 mg HS PO Last administered on 12/01/17 20:56; Start 11/25/17 at 21:00; Stop 12/02/17 at 18:28; Status DC Olanzapine (ZyPREXA ZYDIS) 2.5 mg PRN Q2HR PRN PO PSYCHOSIS Last administered on 12/11/17 10:25; Start 11/25/17 at 18:15 Cyanocobalamin (Vitamin B-12) 1,000 mcg QMONTH IM ; Start 11/26/17 at 09:00; Stop 11/26/17 at 09:00; Status DC Divalproex Sodium (Depakote Er) 1,000 mg HS PO Last administered on 11/29/17 19:22; Start 11/27/17 at 21:00; Stop 11/30/17 at 18:31; Status DC Haloperidol (Haldol) 20 mg DAILY PO Last administered on 12/05/17 09:21; Start 11/28/17 at 09:00; Stop 12/05/17 at 15:45; Status DC Haloperidol (Haldol) 15 mg HS PO Last administered on 12/04/17 19:20; Start at 21:00; Stop 12/05/17 at 15:45; Status DC Polyethylene Glycol (miraLAX) 17 gm DAILY PO ; Start 11/30/17 at 12:30; Stop at 12:30; Status DC Polyethylene Glycol (miraLAX) 17 gm DAILY PO Last administered on 12/14/17 08: 07; Start 11/30/17 at 09:00 Divalproex Sodium (Depakote Er) 1,500 mg HS PO Last administered on 12/14/17 19 :26; Start 11/30/17 at 21:00 Fluvoxamine Maleate (Luvox) 50 mg HS PO Last administered on 12/14/17 19:21; Start 12/02/17 at 21:00 Gabapentin (Neurontin) 300 mg TID PO Last administered on 12/14/17 19:26; Start 12/03/17 at 21:00 Clozapine (Clozaril) 25 mg HS PO Last administered on 12/08/17 19:33; Start at 21:00; Stop 12/09/17 at 18:53; Status DC Haloperidol (Haldol) 15 mg BID PO Last administered on 12/14/17 19:21; Start at 21:00 Clonazepam (KlonoPIN) 0.25 mg BID PO Last administered on 12/09/17 19:48; Start 12/06/17 at 21:00; Stop 12/09/17 at 22:00; Status DC Artificial Tears (Refresh Classic) 1 drop PRN Q15MIN PRN OU DRY EYE Last administered on 12/12/17 08:06; Start 12/07/17 at 15:45 Trazodone HCl (Desyrel) 12.5 mg TID@0900,1300,1700 PO Last administered on 17:20; Start 12/08/17 at 09:00 Clozapine (Clozaril) 50 mg HS PO Last administered on 5/6/18at 19:52; Start 12/09/17 at 21:00; Stop 12/14/17 at 19:15; Status DC Clozapine (Clozaril) 75 mg HS PO Last administered on 12/14/17at 19:33; Start 12/14/17 at 21:00 Active Scripts Active Reported Tramadol Hcl (Tramadol HCl) 50 Mg Tablet 50 Mg PO PRN Q6HRS PRN Multi Vitamin Daily (Multivitamin) 1 Each Tablet 1 Tab PO DAILY Simethicone 125 Mg Capsule 125 Mg PO TID Senna Lax (Sennosides) 8.6 Mg Tablet 8.6 Mg PO BID Potassium Chloride 10 Meq Tablet.er 10 Meq PO DAILY Actos (Pioglitazone Hcl) 30 Mg Tablet 30 Mg PO DAILY Pepcid (Famotidine) 20 Mg Tablet 20 Mg PO BID Novolog Flexpen (Insulin Aspart) 100 Unit/1 Ml Insuln.pen 8 Units SQ DAILYBFRLUN Novolog Flexpen (Insulin Aspart) 100 Unit/1 Ml Insuln.pen 4 Units SQ DAILYWBKFT Novolog Flexpen (Insulin Aspart) 100 Unit/1 Ml Insuln.pen 10 Unit SQ DAILYBFRSUP Moisturizing Cream (Gly/Dimeth/Petrolat,Wht/Water) 453 Gm Cream..g. 1 Yong TP PRN PRN Mintox Suspension (Mag Hydrox/Al Hydrox/Simeth) 355 Ml Oral.susp 15 Ml PO PRN BID PRN Milk Of Magnesia (Magnesium Hydroxide) 2,400 Mg/10 Ml Oral.susp 2,400 Mg PO PRN DAILY PRN Mapap (Acetaminophen) 500 Mg Tablet 500 Mg PO PRN Q6HRS PRN Magnesium Oxide 400 Mg Tablet 500 Mg PO DAILY Lisinopril 20 Mg Tablet 20 Mg PO DAILY Lipitor (Atorvastatin Calcium) 10 Mg Tablet 10 Mg PO QHS Levemir Flextouch (Insulin Detemir) 100 Unit/1 Ml Insuln.pen 26 Units SQ DAILYWBKFT Levemir Flextouch (Insulin Detemir) 100 Unit/1 Ml Insuln.pen 16 Units SQ HS Lasix (Furosemide) 40 Mg Tablet 40 Mg PO DAILY Haloperidol 10 Mg Tablet 20 Mg PO BID Haloperidol Lactate 5 Mg/1 Ml Vial 5 Mg IJ PRN Q4HRS PRN Glucagen (Glucagon,Human Recombinant) 1 Mg/1 Ml Vial 1 Mg IJ PRN PRN Gemfibrozil 600 Mg Tablet 600 Mg PO BID Gabapentin 300 Mg Capsule 300 Mg PO BID Flonase Allergy Relief (Fluticasone Propionate) 9.9 Ml Modale.susp 2 Sprays NS PRN PRN Erythromycin (Erythromycin Base) 250 Mg Tablet 250 Mg PO TIDPC Docusate Sodium 100 Mg Capsule 100 Mg PO DAILY Docusate Sodium 100 Mg Capsule 100 Mg PO PRN DAILY PRN Clonidine Hcl 0.1 Mg Tablet 0.1 Mg PO HS Clonazepam 0.5 Mg Tablet 0.5 Mg PO BID Cetirizine Hcl 10 Mg Tablet 10 Mg PO DAILY Aspirin Ec (Aspirin) 81 Mg Tablet.dr 81 Mg PO DAILY Amlodipine Besylate 10 Mg Tablet 10 Mg PO DAILY Abilify (Aripiprazole) 15 Mg Tablet 15 Mg PO BID I have reviewed the current psychotropics carefully including drug interactions. Risk benefit ratio favors no change other than as noted in my dictated progress note. Diagnosis: Problems: (1) Peripheral neuropathy (2) UTI (urinary tract infection) (3) Skin tear (4) Acute adjustment disorder (5) Anxiety disorder (6) Bipolar affective, mixed, sev w/ psych (7) Schizoaffective disorder, chronic condition with acute exacerbation (8) Schizophrenia, disorganized, subchronic with acute exacerbation JASS HUNG MD December 14, 2017 20:59
[2017-12-14] MEDS: PHENYLEPHRINE/COCOA BUTTER RECTAL SUPP. PR PRN (21:08)
--- NOTE | 2017-12-15 04:52 | PN ---
DATE: 12/12/2017 This is a late entry of 12/12/2017 covers elements not covered in my initial note of 12/12/2017. SUBJECTIVE: I met with the patient individually evening of 12/12/2017. The patient remains attention seeking per nursing staff, intrusive at times, compliant with medications. REVIEW OF SYSTEMS: Positive for vague somatic symptoms. No CV, , pulmonary, eye, ENT system symptoms on review. MENTAL STATUS EXAM: Oriented to herself, situation. Speech coherent, rapid, pressured. Abstraction fair, computation impaired, language function intact, attention span short. Mood and affect, lability is improved. LABORATORY DATA: Reviewed. IMPRESSION: Unchanged from initial note. PLAN: Continue current psychotropics. Increase Clozaril gradually. MAN Prosper HUNG MD DR: KATIANA/alicia JOB#: [id number] / [id number]
--- NOTE | 2017-12-15 04:57 | PN ---
DATE: 12/11/2017 PSYCHIATRIC PROGRESS NOTE This late entry 12/11/2017 covers elements not covered in my initial note 12/11/2017. SUBJECTIVE: I met with the patient in the evening of 12/11/2017. The patient has been quite delusional, psychotic, making random statements that people are f___ing her and raping her. Quite psychotic. REVIEW OF SYSTEMS: No CV, , pulmonary, eye, ENT system symptoms on review. MENTAL STATUS EXAM: Oriented to herself and situation. Speech is coherent, little pressured. Abstraction fair, computation impaired, language function intact, attention span short. Mood and affect remain somewhat anxious, labile, despite the above she is less obsessive and less coming to the nursing station with frequent complaints. LABORATORIES: Reviewed. IMPRESSION: Unchanged from initial note. PLAN: Continue current psychotropics, gradually increase Clozaril. MAN Prosper HUNG MD DR: KATIANA/alicia JOB#: [id number] / [id number]
--- NOTE | 2017-12-15 04:59 | PN ---
DATE: 12/13/2017 PSYCHIATRIC PROGRESS NOTE This late entry 12/13/2017 covers elements not covered in my initial note 12/13/2017. SUBJECTIVE: I met with the patient evening of 12/13/2017. The patient has been less anxious, restless, still paranoid, suspicious. REVIEW OF SYSTEMS: No CV, , pulmonary, eye, ENT system symptoms on review. Reliability poor. MENTAL STATUS EXAM: Oriented to herself and situation. Speech is coherent, less pressured. Abstraction fair, computation impaired, language function intact, attention span short. Mood and affect; lability is improved, somewhat withdrawn. LABORATORIES: Reviewed. IMPRESSION: Unchanged from initial note. PLAN: Continue current psychotropics. Valproic acid level therapeutic at 67. MAN Prosper HUNG MD DR: KATIANA/alicia JOB#: [id number] / [id number]
[2017-12-15 06:16] VITALS: BP 133/70
[2017-12-15] MEDS: INSULIN LISPRO 300 UNITS/3 ML INSULN.PEN. SQ SCH ×3 (08:00→17:15)
[2017-12-15] MEDS: CETIRIZINE HCL 10 MG TABLET PO SCH (09:08)
[2017-12-15] MEDS: FUROSEMIDE 40 MG TABLET PO SCH (09:08)
[2017-12-15] MEDS: GABAPENTIN 300 MG CAPSULE. PO SCH ×3 (09:08→21:06)
[2017-12-15] MEDS: MULTIVITAMIN with MINERAL TABLET. PO SCH (09:08)
[2017-12-15] MEDS: DOCUSATE SODIUM 100 MG CAPSULE PO SCH (09:08)
[2017-12-15] MEDS: MAGNESIUM OXIDE 400 MG TABLET PO SCH (09:08)
[2017-12-15] MEDS: FAMOTIDINE 20 MG TABLET PO SCH ×2 (09:08→21:06)
[2017-12-15] MEDS: GEMFIBROZIL 600 MG TABLET. PO SCH ×2 (09:08→17:09)
[2017-12-15] MEDS: POLYETHYLENE GLYCOL 3350 17 GM PACKET. PO SCH (09:08)
[2017-12-15] MEDS: PIOGLITAZONE 15 MG TABLET. PO SCH (09:09)
[2017-12-15] MEDS: SENNOSIDES 8.6 MG TABLET PO SCH ×2 (09:09→21:06)
[2017-12-15] MEDS: HALOPERIDOL 5 MG TABLET PO SCH ×2 (09:09→21:06)
[2017-12-15] MEDS: amLODIPine BESYLATE 10 MG TABLET PO SCH (09:09)
[2017-12-15] MEDS: POTASSIUM CHLORIDE 10 MEQ TABLET.ER. PO SCH (09:09)
[2017-12-15] MEDS: ARIPiprazole 15 MG TABLET PO SCH ×2 (09:09→21:03)
[2017-12-15] MEDS: ASPIRIN ENTERIC COATED 81 MG TABLET.DR. PO SCH (09:09)
[2017-12-15] MEDS: LISINOPRIL 20 MG TABLET PO SCH (09:10)
[2017-12-15] MEDS: traZODone 50 MG TABLET. PO SCH ×3 (09:12→17:10)
[2017-12-15] MEDS: SIMETHICONE 80 MG TAB.CHEW PO SCH ×3 (09:12→21:05)
[2017-12-15] MEDS: INSULIN GLARGINE 300 UNITS/3 ML INSULN.PEN. SQ SCH ×2 (09:14→21:07)
[2017-12-15 09:33] LABS: ALBUMIN 3.1 g/dL (3.4-5.0); ALBUMIN/GLOBULIN RATIO 0.8 (1.0-1.7); CALCIUM 9.3 mg/dL (8.5-10.1); CREATININE 2.1 mg/dL (0.6-1.0); GFR 30.2; POTASSIUM 4.4 mmol/L (3.5-5.1); TOTAL BILIRUBIN 0.2 mg/dL (0.2-1.0); TOTAL PROTEIN 6.9 g/dL (6.4-8.2)
[2017-12-15] MEDS: POLYVINYL ALCOHOL/POVIDONE/PF OPHTH SOLUTION DROPERETTE. OU PRN (11:50)
[2017-12-15 16:16] VITALS: BP 100/73
--- NOTE | 2017-12-15 20:55 | PDOC ---
Exam Note: Tay Note: Please also refer to the separate dictated note~for this date of service dictated separately.~Patient seen individually. Discussed the patient with Nursing staff reviewed the chart.~Reviewed interim history and current functioning. Reviewed vital signs,~Labs/ Radiology~and current medications noted below. Continue current treatment with the changes noted in the dictated addendum note Assessment: Vital Signs: Vital Signs Date Time Temp Pulse Resp B/P (MAP) Pulse Ox O2 Delivery O2 Flow Rate FiO2 12/15/17 16:16 97.6 87 18 100/73 (82) 96 12/15/17 06:16 Room Air I&O Intake and Output 12/15/17 07:00 Intake Total 930 ml Balance 930 ml Intake Oral 930 ml Labs: Laboratory Tests Test 12/15/17 06:34 12/15/17 07:18 12/15/17 11:36 12/15/17 16:41 Sodium Level 146 mmol/L (136-145) H Potassium Level 4.4 mmol/L (3.5-5.1) Chloride Level 106 mmol/L (98-107) Carbon Dioxide Level 37 mmol/L (21-32) H Anion Gap 3 (6-14) L Blood Urea Nitrogen 31 mg/dL (7-20) H Creatinine 2.1 mg/dL (0.6-1.0) H Estimated GFR (Cockcroft-Gault) 30.2 BUN/Creatinine Ratio 15 (6-20) Glucose Level 103 mg/dL (70-99) H Calcium Level 9.3 mg/dL (8.5-10.1) Total Bilirubin 0.2 mg/dL (0.2-1.0) Aspartate Amino Transferase (AST) 16 U/L (15-37) Alanine Aminotransferase (ALT) 20 U/L (14-59) Alkaline Phosphatase 144 U/L (46-116) H Total Protein 6.9 g/dL (6.4-8.2) Albumin 3.1 g/dL (3.4-5.0) L Albumin/Globulin Ratio 0.8 (1.0-1.7) L Glucose (Fingerstick) 60 mg/dL (70-99) L 189 mg/dL (70-99) H 99 mg/dL (70-99) Test 12/15/17 19:20 Glucose (Fingerstick) 108 mg/dL (70-99) H Current Medications: Meds: Current Medications Ciprofloxacin Lactate 200 ml @ 200 mls/hr 1X ONCE IV ; Start 11/23/17 at 16:30 ; Stop 11/23/17 at 16:31; Status DC Ciprofloxacin (Cipro) 500 mg 1X ONCE PO Last administered on 11/23/17 16:45; Start 11/23/17 at 17:00; Stop 11/23/17 at 17:01; Status DC Acetaminophen (Tylenol) 650 mg PRN Q6HRS PRN PO PAIN / TEMP; Start 11/23/17 at 17:45; Status Cancel Multi-Ingredient Ointment (Analgesic [place]) 1 yong PRN QID PRN TP MUSCLE PAIN; Start 11/23/17 at 17:45 Al Hydroxide/Mg Hydroxide (Mylanta Plus Xs) 15 ml PRN AFTMEALHC PRN PO DYSPEPSIA Last administered on 12/11/17 09:45; Start 11/23/17 at 17:45 Magnesium Hydroxide (Milk Of Magnesia) 2,400 mg PRN QHS PRN PO CONSTIPATION Last administered on 12/05/17at 14:09; Start 11/23/17 at 17:45 Aripiprazole (Abilify) 15 mg BID PO Last administered on 12/15/17 09:09; Start 11/24/17 at 09:00 Clonazepam (KlonoPIN) 0.5 mg BID PO Last administered on 12/06/17 08:02; Start 11/24/17 at 09:00; Stop 12/06/17 at 18:24; Status DC Haloperidol Lactate (Haldol) 5 mg PRN Q4HRS PRN IM AGITATION; Start 11/23/17 at 22:15 Haloperidol (Haldol) 20 mg BID PO Last administered on 11/27/17at 08:57; Start 11/24/17 at 09:00; Stop 11/27/17 at 18:23; Status DC Acetaminophen (Tylenol) 500 mg PRN Q6HRS PRN PO PAIN Last administered on 09:16; Start 11/23/17 at 22:15 Amlodipine Besylate (Norvasc) 10 mg DAILY PO Last administered on 12/15/17 09: 09; Start 11/24/17 at 09:00 Aspirin (Aspirin Enteric Coated) 81 mg DAILY PO Last administered on 12/15/17 09:09; Start 11/24/17 at 09:00 Cetirizine HCl (ZyrTEC) 10 mg DAILY PO Last administered on 12/15/17 09:08; Start 11/24/17 at 09:00 Clonidine HCl (Catapres) 0.1 mg HS PO Last administered on 12/14/17 19:27; Start 11/24/17 at 21:00 Docusate Sodium (Colace) 100 mg DAILY PO Last administered on 12/15/17 09:08; Start 11/24/17 at 09:00 Docusate Sodium (Colace) 100 mg PRN DAILY PRN PO CONSTIPATION; Start 11/23/17 at 22:15 Erythromycin (E-Mycin) 250 mg TIDPC PO Last administered on 11/25/17 16:39; Start 11/24/17 at 08:30; Stop 11/25/17 at 18:49; Status DC Famotidine (Pepcid) 20 mg BID PO Last administered on 12/15/17 09:08; Start at 09:00 Furosemide (Lasix) 40 mg DAILY PO Last administered on 12/15/17 09:08; Start at 09:00 Gabapentin (Neurontin) 300 mg BID PO Last administered on 12/03/17 08:10; Start 11/24/17 at 09:00; Stop 12/03/17 at 19:08; Status DC Gemfibrozil (Lopid) 600 mg BIDWMEALS PO Last administered on 12/15/17 17:09; Start 11/24/17 at 08:00 Glucagon (Glucagen Kit) 1 mg PRN 1X PRN SQ hypoglycemia; Start 11/23/17 at 22: 15 Insulin Human Lispro (HumaLOG) 4 units DAILYWBKFT SQ Last administered on 08:20; Start 11/24/17 at 08:00 Insulin Human Lispro (HumaLOG) 8 units DAILYBFRLUN SQ Last administered on 11:52; Start 11/24/17 at 11:30 Insulin Human Lispro (HumaLOG) 10 units DAILYBFRSUP SQ Last administered on 12/15 17:15; Start 11/24/17 at 17:00 Insulin Glargine (Lantus) 16 units HS SQ Last administered on 12/14/17 19:35; Start 11/23/17 at 23:00 Insulin Glargine (Lantus) 26 units DAILYWBKFT SQ Last administered on 12/15/17 09:14; Start 11/24/17 at 08:00 Lisinopril (Prinivil) 20 mg DAILY PO Last administered on 12/15/17 09:10; Start 11/24/17 at 09:00 Magnesium Oxide (Magnesium Oxide) 400 mg DAILY PO Last administered on 09:08; Start 11/24/17 at 09:00 Sennosides (Senna) 8.6 mg BID PO Last administered on 12/15/17 09:09; Start at 09:00 Tramadol HCl (Ultram) 50 mg PRN Q6HRS PRN PO PAIN Last administered on 10:06; Start 11/23/17 at 22:15 Fluticasone Propionate (Flonase) 2 spray PRN DAILY PRN NS ALLERGIES Last administered on 12/09/17 08:40; Start 11/24/17 at 09:00 Non-Formulary Medication (Gly/Dimeth/ Petrolat,Wht/ Water (Moisturizing Cream)) 1 yong PRN PRN TP skin protectant; Start 11/23/17 at 22:15; Status UNV Non-Formulary Medication (Mag Hydrox/Al Hydrox/Simeth (Mintox Suspension)) 15 ml PRN BID PRN PO gerd; Start 11/23/17 at 22:15; Status UNV Non-Formulary Medication (Magnesium Hydroxide (Milk Of Magnesia)) 2,400 mg PRN DAILY PRN PO CONSTIPATION; Start 11/23/17 at 22:15; Status UNV Multivitamins/ Calcium (Thera-M Plus) 1 tab DAILY PO Last administered on 09:08; Start 11/24/17 at 09:00 Pioglitazone HCl (Actos) 30 mg DAILY PO Last administered on 12/15/17 09:09; Start 11/24/17 at 09:00 Potassium Chloride (Klor-Con) 10 meq DAILY PO Last administered on 12/15/17 09: 09; Start 11/24/17 at 09:00 Simethicone (Gas-X) 120 mg TID PO Last administered on 12/15/17 13:49; Start at 09:00 Divalproex Sodium (Depakote Er) 500 mg HS PO Last administered on 11/26/17 19: 33; Start 11/24/17 at 21:00; Stop 11/27/17 at 18:23; Status DC Phenylephrine/ Shark Liver Oil (Preparation H) 1 supp PRN Q8HRS PRN NE RECTAL PAIN Last administered on 12/14/17 21:08; Start 11/24/17 at 19:00 Lactobacillus Rhamnosus (Culturelle) 1 cap BID PO Last administered on 08:02; Start 11/25/17 at 21:00; Stop 12/13/17 at 13:56; Status DC Fluvoxamine Maleate (Luvox) 25 mg HS PO Last administered on 12/01/17 20:56; Start 11/25/17 at 21:00; Stop 12/02/17 at 18:28; Status DC Olanzapine (ZyPREXA ZYDIS) 2.5 mg PRN Q2HR PRN PO PSYCHOSIS Last administered on 12/11/17 10:25; Start 11/25/17 at 18:15 Cyanocobalamin (Vitamin B-12) 1,000 mcg QMONTH IM ; Start 11/26/17 at 09:00; Stop 11/26/17 at 09:00; Status DC Divalproex Sodium (Depakote Er) 1,000 mg HS PO Last administered on 11/29/17 19:22; Start 11/27/17 at 21:00; Stop 11/30/17 at 18:31; Status DC Haloperidol (Haldol) 20 mg DAILY PO Last administered on 12/05/17 09:21; Start 11/28/17 at 09:00; Stop 12/05/17 at 15:45; Status DC Haloperidol (Haldol) 15 mg HS PO Last administered on 12/04/17 19:20; Start at 21:00; Stop 12/05/17 at 15:45; Status DC Polyethylene Glycol (miraLAX) 17 gm DAILY PO ; Start 11/30/17 at 12:30; Stop at 12:30; Status DC Polyethylene Glycol (miraLAX) 17 gm DAILY PO Last administered on 12/15/17 09: 08; Start 11/30/17 at 09:00 Divalproex Sodium (Depakote Er) 1,500 mg HS PO Last administered on 12/14/17 19 :26; Start 11/30/17 at 21:00 Fluvoxamine Maleate (Luvox) 50 mg HS PO Last administered on 12/14/17 19:21; Start 12/02/17 at 21:00 Gabapentin (Neurontin) 300 mg TID PO Last administered on 12/15/17 13:49; Start 12/03/17 at 21:00 Clozapine (Clozaril) 25 mg HS PO Last administered on 12/08/17 19:33; Start at 21:00; Stop 12/09/17 at 18:53; Status DC Haloperidol (Haldol) 15 mg BID PO Last administered on 12/15/17 09:09; Start at 21:00 Clonazepam (KlonoPIN) 0.25 mg BID PO Last administered on 12/09/17 19:48; Start 12/06/17 at 21:00; Stop 12/09/17 at 22:00; Status DC Artificial Tears (Refresh Classic) 1 drop PRN Q15MIN PRN OU DRY EYE Last administered on 12/15/17 11:50; Start 12/07/17 at 15:45 Trazodone HCl (Desyrel) 12.5 mg TID@0900,1300,1700 PO Last administered on 17:10; Start 12/08/17 at 09:00 Clozapine (Clozaril) 50 mg HS PO Last administered on 12/13/17 19:52; Start 12/09/17 at 21:00; Stop 12/14/17 at 19:15; Status DC Clozapine (Clozaril) 75 mg HS PO Last administered on 12/14/17 19:33; Start 12/14/17 at 21:00 Active Scripts Active Reported Tramadol Hcl (Tramadol HCl) 50 Mg Tablet 50 Mg PO PRN Q6HRS PRN Multi Vitamin Daily (Multivitamin) 1 Each Tablet 1 Tab PO DAILY Simethicone 125 Mg Capsule 125 Mg PO TID Senna Lax (Sennosides) 8.6 Mg Tablet 8.6 Mg PO BID Potassium Chloride 10 Meq Tablet.er 10 Meq PO DAILY Actos (Pioglitazone Hcl) 30 Mg Tablet 30 Mg PO DAILY Pepcid (Famotidine) 20 Mg Tablet 20 Mg PO BID Novolog Flexpen (Insulin Aspart) 100 Unit/1 Ml Insuln.pen 8 Units SQ DAILYBFRLUN Novolog Flexpen (Insulin Aspart) 100 Unit/1 Ml Insuln.pen 4 Units SQ DAILYWBKFT Novolog Flexpen (Insulin Aspart) 100 Unit/1 Ml Insuln.pen 10 Unit SQ DAILYBFRSUP Moisturizing Cream (Gly/Dimeth/Petrolat,Wht/Water) 453 Gm Cream..g. 1 Yong TP PRN PRN Mintox Suspension (Mag Hydrox/Al Hydrox/Simeth) 355 Ml Oral.susp 15 Ml PO PRN BID PRN Milk Of Magnesia (Magnesium Hydroxide) 2,400 Mg/10 Ml Oral.susp 2,400 Mg PO PRN DAILY PRN Mapap (Acetaminophen) 500 Mg Tablet 500 Mg PO PRN Q6HRS PRN Magnesium Oxide 400 Mg Tablet 500 Mg PO DAILY Lisinopril 20 Mg Tablet 20 Mg PO DAILY Lipitor (Atorvastatin Calcium) 10 Mg Tablet 10 Mg PO QHS Levemir Flextouch (Insulin Detemir) 100 Unit/1 Ml Insuln.pen 26 Units SQ DAILYWBKFT Levemir Flextouch (Insulin Detemir) 100 Unit/1 Ml Insuln.pen 16 Units SQ HS Lasix (Furosemide) 40 Mg Tablet 40 Mg PO DAILY Haloperidol 10 Mg Tablet 20 Mg PO BID Haloperidol Lactate 5 Mg/1 Ml Vial 5 Mg IJ PRN Q4HRS PRN Glucagen (Glucagon,Human Recombinant) 1 Mg/1 Ml Vial 1 Mg IJ PRN PRN Gemfibrozil 600 Mg Tablet 600 Mg PO BID Gabapentin 300 Mg Capsule 300 Mg PO BID Flonase Allergy Relief (Fluticasone Propionate) 9.9 Ml [place].susp 2 Sprays NS PRN PRN Erythromycin (Erythromycin Base) 250 Mg Tablet 250 Mg PO TIDPC Docusate Sodium 100 Mg Capsule 100 Mg PO DAILY Docusate Sodium 100 Mg Capsule 100 Mg PO PRN DAILY PRN Clonidine Hcl 0.1 Mg Tablet 0.1 Mg PO HS Clonazepam 0.5 Mg Tablet 0.5 Mg PO BID Cetirizine Hcl 10 Mg Tablet 10 Mg PO DAILY Aspirin Ec (Aspirin) 81 Mg Tablet.dr 81 Mg PO DAILY Amlodipine Besylate 10 Mg Tablet 10 Mg PO DAILY Abilify (Aripiprazole) 15 Mg Tablet 15 Mg PO BID I have reviewed the current psychotropics carefully including drug interactions. Risk benefit ratio favors no change other than as noted in my dictated progress note. Diagnosis: Problems: (1) Peripheral neuropathy (2) UTI (urinary tract infection) (3) Skin tear (4) Acute adjustment disorder (5) Anxiety disorder (6) Bipolar affective, mixed, sev w/ psych (7) Schizoaffective disorder, chronic condition with acute exacerbation (8) Schizophrenia, disorganized, subchronic with acute exacerbation JASS HUNG MD December 15, 2017 20:55
[2017-12-15] MEDS: cloZAPine 25 MG TABLET PO SCH (21:04)
[2017-12-15] MEDS: cloNIDine HCL 0.1 MG TABLET PO SCH (21:04)
[2017-12-15] MEDS: DIVALPROEX ER 500 MG TAB.ER.24H PO SCH (21:05)
--- NOTE | 2017-12-15 23:13 | PN ---
DATE: 12/14/2017 PSYCHIATRIC PROGRESS NOTE This late entry 12/14/2017 covers elements not covered in my initial note 12/14/2017. SUBJECTIVE: I met with the patient in the evening. The patient's absolute neutrophil count is approximately 2.1. She has been quite psychotic, paranoid, making statements she is having a baby, then pretending she was holding the baby in her hand per nursing report. REVIEW OF SYSTEMS: No CV, , pulmonary, eye, ENT system symptoms on review. Reliability varies. MENTAL STATUS EXAM: Oriented to herself and situation. Speech is coherent at times pressured. Abstraction fair, computation impaired, language function intact. Remains psychotic. No suicidal or homicidal ideation. IMPRESSION: Schizoaffective disorder, bipolar type, mixed with psychotic features. PLAN: Increase Clozaril to 75 mg at bedtime. Continue rest unchanged. MAN Prosper HUNG MD DR: KATIANA/alicia JOB#: [id number] / [id number]
[2017-12-16 06:02] VITALS: BP 137/77
[2017-12-16] MEDS: PIOGLITAZONE 15 MG TABLET. PO SCH (08:41)
[2017-12-16] MEDS: ARIPiprazole 15 MG TABLET PO SCH (08:41)
[2017-12-16] MEDS: POLYETHYLENE GLYCOL 3350 17 GM PACKET. PO SCH (08:41)
[2017-12-16] MEDS: MULTIVITAMIN with MINERAL TABLET. PO SCH (08:41)
[2017-12-16] MEDS: SIMETHICONE 80 MG TAB.CHEW PO SCH ×4 (08:42→20:00)
[2017-12-16] MEDS: GEMFIBROZIL 600 MG TABLET. PO SCH ×2 (08:42→17:27)
[2017-12-16] MEDS: DOCUSATE SODIUM 100 MG CAPSULE PO SCH (08:42)
[2017-12-16] MEDS: HALOPERIDOL 5 MG TABLET PO SCH ×2 (08:42→19:58)
[2017-12-16] MEDS: FAMOTIDINE 20 MG TABLET PO SCH ×2 (08:43→20:00)
[2017-12-16] MEDS: amLODIPine BESYLATE 10 MG TABLET PO SCH (08:43)
[2017-12-16] MEDS: SENNOSIDES 8.6 MG TABLET PO SCH ×2 (08:43→20:00)
[2017-12-16] MEDS: MAGNESIUM OXIDE 400 MG TABLET PO SCH (08:43)
[2017-12-16] MEDS: FUROSEMIDE 40 MG TABLET PO SCH (08:43)
[2017-12-16] MEDS: ASPIRIN ENTERIC COATED 81 MG TABLET.DR. PO SCH (08:43)
[2017-12-16] MEDS: CETIRIZINE HCL 10 MG TABLET PO SCH (08:43)
[2017-12-16] MEDS: LISINOPRIL 20 MG TABLET PO SCH (08:44)
[2017-12-16] MEDS: POTASSIUM CHLORIDE 10 MEQ TABLET.ER. PO SCH (08:44)
[2017-12-16] MEDS: traZODone 50 MG TABLET. PO SCH ×3 (08:46→17:00)
[2017-12-16] MEDS: INSULIN GLARGINE 300 UNITS/3 ML INSULN.PEN. SQ SCH ×2 (08:48→20:03)
[2017-12-16] MEDS: GABAPENTIN 300 MG CAPSULE. PO SCH ×3 (08:52→20:00)
[2017-12-16] MEDS: INSULIN LISPRO 300 UNITS/3 ML INSULN.PEN. SQ SCH ×3 (08:52→17:28)
--- NOTE | 2017-12-16 11:58 | RAD ---
EXAM: Chest, single view. HISTORY: Pain. COMPARISON: None. FINDINGS: A frontal view of the chest is obtained. There is diffuse increased lower lobe predominant interstitial opacity. There is no consolidation, pleural effusion or pneumothorax. The heart is normal in size. IMPRESSION: Bilateral lower lobe predominant increased interstitial opacity, suggesting interstitial infiltrate.
[2017-12-16 17:15] LABS: C ANCA <1:20 titer (Neg:<1:20); P ANCA <1:20 titer (Neg:<1:20)
[2017-12-16 18:19] VITALS: BP 157/57
[2017-12-16] MEDS: cloZAPine 25 MG TABLET PO SCH (19:58)
[2017-12-16] MEDS: cloNIDine HCL 0.1 MG TABLET PO SCH (19:59)
[2017-12-16] MEDS: DIVALPROEX ER 500 MG TAB.ER.24H PO SCH (20:00)
[2017-12-16] MEDS ORDERED: ARIPiprazole 10 MG TABLET PO SCH (21:00)
--- NOTE | 2017-12-16 22:20 | PDOC ---
Exam Note: Tay Note: Please also refer to the separate dictated note~for this date of service dictated separately.~Patient seen individually. Discussed the patient with Nursing staff reviewed the chart.~Reviewed interim history and current functioning. Reviewed vital signs,~Labs/ Radiology~and current medications noted below. Continue current treatment with the changes noted in the dictated addendum note Assessment: Vital Signs: Vital Signs Date Time Temp Pulse Resp B/P (MAP) Pulse Ox O2 Delivery O2 Flow Rate FiO2 12/16/17 19:59 89 157/57 12/16/17 18:19 98.7 18 93 12/15/17 06:16 Room Air I&O Intake and Output 12/16/17 07:00 Intake Total 1440 ml Balance 1440 ml Intake Oral 1440 ml Labs: Laboratory Tests Test 12/16/17 07:42 12/16/17 11:29 12/16/17 16:56 12/16/17 19:27 Glucose (Fingerstick) 105 mg/dL (70-99) H 175 mg/dL (70-99) H 165 mg/dL (70-99) H 253 mg/dL (70-99) H Current Medications: Meds: Current Medications Ciprofloxacin Lactate 200 ml @ 200 mls/hr 1X ONCE IV ; Start 11/23/17 at 16:30 ; Stop 11/23/17 at 16:31; Status DC Ciprofloxacin (Cipro) 500 mg 1X ONCE PO Last administered on 11/23/17at 16:45; Start 11/23/17 at 17:00; Stop 11/23/17 at 17:01; Status DC Acetaminophen (Tylenol) 650 mg PRN Q6HRS PRN PO PAIN / TEMP; Start 11/23/17 at 17:45; Status Cancel Multi-Ingredient Ointment (Analgesic [place]) 1 yong PRN QID PRN TP MUSCLE PAIN; Start 11/23/17 at 17:45 Al Hydroxide/Mg Hydroxide (Mylanta Plus Xs) 15 ml PRN AFTMEALHC PRN PO DYSPEPSIA Last administered on 12/11/17at 09:45; Start 11/23/17 at 17:45 Magnesium Hydroxide (Milk Of Magnesia) 2,400 mg PRN QHS PRN PO CONSTIPATION Last administered on 12/05/17at 14:09; Start 11/23/17 at 17:45 Aripiprazole (Abilify) 15 mg BID PO Last administered on 12/16/17 08:41; Start 11/24/17 at 09:00; Stop 12/16/17 at 18:08; Status DC Clonazepam (KlonoPIN) 0.5 mg BID PO Last administered on 12/06/17 08:02; Start 11/24/17 at 09:00; Stop 12/06/17 at 18:24; Status DC Haloperidol Lactate (Haldol) 5 mg PRN Q4HRS PRN IM AGITATION; Start 11/23/17 at 22:15 Haloperidol (Haldol) 20 mg BID PO Last administered on 11/27/17 08:57; Start 11/24/17 at 09:00; Stop 11/27/17 at 18:23; Status DC Acetaminophen (Tylenol) 500 mg PRN Q6HRS PRN PO PAIN Last administered on 09:16; Start 11/23/17 at 22:15 Amlodipine Besylate (Norvasc) 10 mg DAILY PO Last administered on 12/16/17 08: 43; Start 11/24/17 at 09:00 Aspirin (Aspirin Enteric Coated) 81 mg DAILY PO Last administered on 12/16/17 08:43; Start 11/24/17 at 09:00 Cetirizine HCl (ZyrTEC) 10 mg DAILY PO Last administered on 12/16/17 08:43; Start 11/24/17 at 09:00 Clonidine HCl (Catapres) 0.1 mg HS PO Last administered on 12/16/17 19:59; Start 11/24/17 at 21:00 Docusate Sodium (Colace) 100 mg DAILY PO Last administered on 12/16/17 08:42; Start 11/24/17 at 09:00 Docusate Sodium (Colace) 100 mg PRN DAILY PRN PO CONSTIPATION; Start 11/23/17 at 22:15 Erythromycin (E-Mycin) 250 mg TIDPC PO Last administered on 11/25/17 16:39; Start 11/24/17 at 08:30; Stop 11/25/17 at 18:49; Status DC Famotidine (Pepcid) 20 mg BID PO Last administered on 12/16/17 20:00; Start at 09:00 Furosemide (Lasix) 40 mg DAILY PO Last administered on 12/16/17 08:43; Start at 09:00 Gabapentin (Neurontin) 300 mg BID PO Last administered on 12/03/17 08:10; Start 11/24/17 at 09:00; Stop 12/03/17 at 19:08; Status DC Gemfibrozil (Lopid) 600 mg BIDWMEALS PO Last administered on 12/16/17 17:27; Start 11/24/17 at 08:00 Glucagon (Glucagen Kit) 1 mg PRN 1X PRN SQ hypoglycemia; Start 11/23/17 at 22: 15 Insulin Human Lispro (HumaLOG) 4 units DAILYWBKFT SQ Last administered on 08:52; Start 11/24/17 at 08:00 Insulin Human Lispro (HumaLOG) 8 units DAILYBFRLUN SQ Last administered on 12:22; Start 11/24/17 at 11:30 Insulin Human Lispro (HumaLOG) 10 units DAILYBFRSUP SQ Last administered on 12/16 17:28; Start 11/24/17 at 17:00 Insulin Glargine (Lantus) 16 units HS SQ Last administered on 12/16/17 20:03; Start 11/23/17 at 23:00 Insulin Glargine (Lantus) 26 units DAILYWBKFT SQ Last administered on 12/16/17 08:48; Start 11/24/17 at 08:00 Lisinopril (Prinivil) 20 mg DAILY PO Last administered on 12/16/17 08:44; Start 11/24/17 at 09:00 Magnesium Oxide (Magnesium Oxide) 400 mg DAILY PO Last administered on 08:43; Start 11/24/17 at 09:00 Sennosides (Senna) 8.6 mg BID PO Last administered on 12/16/17 20:00; Start at 09:00 Tramadol HCl (Ultram) 50 mg PRN Q6HRS PRN PO PAIN Last administered on 10:06; Start 11/23/17 at 22:15 Fluticasone Propionate (Flonase) 2 spray PRN DAILY PRN NS ALLERGIES Last administered on 12/09/17 08:40; Start 11/24/17 at 09:00 Non-Formulary Medication (Gly/Dimeth/ Petrolat,Wht/ Water (Moisturizing Cream)) 1 yong PRN PRN TP skin protectant; Start 11/23/17 at 22:15; Status UNV Non-Formulary Medication (Mag Hydrox/Al Hydrox/Simeth (Mintox Suspension)) 15 ml PRN BID PRN PO gerd; Start 11/23/17 at 22:15; Status UNV Non-Formulary Medication (Magnesium Hydroxide (Milk Of Magnesia)) 2,400 mg PRN DAILY PRN PO CONSTIPATION; Start 11/23/17 at 22:15; Status UNV Multivitamins/ Calcium (Thera-M Plus) 1 tab DAILY PO Last administered on 08:41; Start 11/24/17 at 09:00 Pioglitazone HCl (Actos) 30 mg DAILY PO Last administered on 12/16/17 08:41; Start 11/24/17 at 09:00 Potassium Chloride (Klor-Con) 10 meq DAILY PO Last administered on 12/16/17 08: 44; Start 11/24/17 at 09:00 Simethicone (Gas-X) 120 mg TID PO Last administered on 12/16/17 20:00; Start at 09:00 Divalproex Sodium (Depakote Er) 500 mg HS PO Last administered on 11/26/17 19: 33; Start 11/24/17 at 21:00; Stop 11/27/17 at 18:23; Status DC Phenylephrine/ Shark Liver Oil (Preparation H) 1 supp PRN Q8HRS PRN [place] RECTAL PAIN Last administered on 12/14/17 21:08; Start 11/24/17 at 19:00 Lactobacillus Rhamnosus (Culturelle) 1 cap BID PO Last administered on 08:02; Start 11/25/17 at 21:00; Stop 12/13/17 at 13:56; Status DC Fluvoxamine Maleate (Luvox) 25 mg HS PO Last administered on 12/01/17 20:56; Start 11/25/17 at 21:00; Stop 12/02/17 at 18:28; Status DC Olanzapine (ZyPREXA ZYDIS) 2.5 mg PRN Q2HR PRN PO PSYCHOSIS Last administered on 12/11/17 10:25; Start 11/25/17 at 18:15 Cyanocobalamin (Vitamin B-12) 1,000 mcg QMONTH IM ; Start 11/26/17 at 09:00; Stop 11/26/17 at 09:00; Status DC Divalproex Sodium (Depakote Er) 1,000 mg HS PO Last administered on 11/29/17 19:22; Start 11/27/17 at 21:00; Stop 11/30/17 at 18:31; Status DC Haloperidol (Haldol) 20 mg DAILY PO Last administered on 12/05/17 09:21; Start 11/28/17 at 09:00; Stop 12/05/17 at 15:45; Status DC Haloperidol (Haldol) 15 mg HS PO Last administered on 12/04/17 19:20; Start at 21:00; Stop 12/05/17 at 15:45; Status DC Polyethylene Glycol (miraLAX) 17 gm DAILY PO ; Start 11/30/17 at 12:30; Stop at 12:30; Status DC Polyethylene Glycol (miraLAX) 17 gm DAILY PO Last administered on 12/16/17 08: 41; Start 11/30/17 at 09:00 Divalproex Sodium (Depakote Er) 1,500 mg HS PO Last administered on 12/16/17 20 :00; Start 11/30/17 at 21:00 Fluvoxamine Maleate (Luvox) 50 mg HS PO Last administered on 12/16/17 19:59; Start 12/02/17 at 21:00 Gabapentin (Neurontin) 300 mg TID PO Last administered on 12/16/17 20:00; Start 12/03/17 at 21:00 Clozapine (Clozaril) 25 mg HS PO Last administered on 12/08/17 19:33; Start at 21:00; Stop 12/09/17 at 18:53; Status DC Haloperidol (Haldol) 15 mg BID PO Last administered on 12/16/17 19:58; Start at 21:00 Clonazepam (KlonoPIN) 0.25 mg BID PO Last administered on 12/09/17at 19:48; Start 12/06/17 at 21:00; Stop 12/09/17 at 22:00; Status DC Artificial Tears (Refresh Classic) 1 drop PRN Q15MIN PRN OU DRY EYE Last administered on 12/15/17at 11:50; Start 12/07/17 at 15:45 Trazodone HCl (Desyrel) 12.5 mg TID@0900,1300,1700 PO Last administered on at 08:46; Start 12/08/17 at 09:00 Clozapine (Clozaril) 50 mg HS PO Last administered on 12/13/17at 19:52; Start 12/09/17 at 21:00; Stop 12/14/17 at 19:15; Status DC Clozapine (Clozaril) 75 mg HS PO Last administered on 12/16/17at 19:58; Start 12/14/17 at 21:00 Levofloxacin (Levaquin) 500 mg DAILY06 PO ; Start 12/17/17 at 06:00 Aripiprazole (Abilify) 10 mg BID PO Last administered on 12/16/17at 20:01; Start 12/16/17 at 21:00 Lactobacillus Rhamnosus (Culturelle) 1 cap BID PO ; Start 12/17/17 at 09:00 Active Scripts Active Reported Tramadol Hcl (Tramadol HCl) 50 Mg Tablet 50 Mg PO PRN Q6HRS PRN Multi Vitamin Daily (Multivitamin) 1 Each Tablet 1 Tab PO DAILY Simethicone 125 Mg Capsule 125 Mg PO TID Senna Lax (Sennosides) 8.6 Mg Tablet 8.6 Mg PO BID Potassium Chloride 10 Meq Tablet.er 10 Meq PO DAILY Actos (Pioglitazone Hcl) 30 Mg Tablet 30 Mg PO DAILY Pepcid (Famotidine) 20 Mg Tablet 20 Mg PO BID Novolog Flexpen (Insulin Aspart) 100 Unit/1 Ml Insuln.pen 8 Units SQ DAILYBFRLUN Novolog Flexpen (Insulin Aspart) 100 Unit/1 Ml Insuln.pen 4 Units SQ DAILYWBKFT Novolog Flexpen (Insulin Aspart) 100 Unit/1 Ml Insuln.pen 10 Unit SQ DAILYBFRSUP Moisturizing Cream (Gly/Dimeth/Petrolat,Wht/Water) 453 Gm Cream..g. 1 Yong TP PRN PRN Mintox Suspension (Mag Hydrox/Al Hydrox/Simeth) 355 Ml Oral.susp 15 Ml PO PRN BID PRN Milk Of Magnesia (Magnesium Hydroxide) 2,400 Mg/10 Ml Oral.susp 2,400 Mg PO PRN DAILY PRN Mapap (Acetaminophen) 500 Mg Tablet 500 Mg PO PRN Q6HRS PRN Magnesium Oxide 400 Mg Tablet 500 Mg PO DAILY Lisinopril 20 Mg Tablet 20 Mg PO DAILY Lipitor (Atorvastatin Calcium) 10 Mg Tablet 10 Mg PO QHS Levemir Flextouch (Insulin Detemir) 100 Unit/1 Ml Insuln.pen 26 Units SQ DAILYWBKFT Levemir Flextouch (Insulin Detemir) 100 Unit/1 Ml Insuln.pen 16 Units SQ HS Lasix (Furosemide) 40 Mg Tablet 40 Mg PO DAILY Haloperidol 10 Mg Tablet 20 Mg PO BID Haloperidol Lactate 5 Mg/1 Ml Vial 5 Mg IJ PRN Q4HRS PRN Glucagen (Glucagon,Human Recombinant) 1 Mg/1 Ml Vial 1 Mg IJ PRN PRN Gemfibrozil 600 Mg Tablet 600 Mg PO BID Gabapentin 300 Mg Capsule 300 Mg PO BID Flonase Allergy Relief (Fluticasone Propionate) 9.9 Ml [place].susp 2 Sprays NS PRN PRN Erythromycin (Erythromycin Base) 250 Mg Tablet 250 Mg PO TIDPC Docusate Sodium 100 Mg Capsule 100 Mg PO DAILY Docusate Sodium 100 Mg Capsule 100 Mg PO PRN DAILY PRN Clonidine Hcl 0.1 Mg Tablet 0.1 Mg PO HS Clonazepam 0.5 Mg Tablet 0.5 Mg PO BID Cetirizine Hcl 10 Mg Tablet 10 Mg PO DAILY Aspirin Ec (Aspirin) 81 Mg Tablet.dr 81 Mg PO DAILY Amlodipine Besylate 10 Mg Tablet 10 Mg PO DAILY Abilify (Aripiprazole) 15 Mg Tablet 15 Mg PO BID I have reviewed the current psychotropics carefully including drug interactions. Risk benefit ratio favors no change other than as noted in my dictated progress note. Diagnosis: Problems: (1) Acute adjustment disorder (2) Anxiety disorder (3) Bipolar affective, mixed, sev w/ psych (4) Schizoaffective disorder, chronic condition with acute exacerbation (5) Schizophrenia, disorganized, subchronic with acute exacerbation JASS HUNG MD December 16, 2017 22:19
--- NOTE | 2017-12-17 02:30 | PN ---
DATE: 12/15/2017 PSYCHIATRIC PROGRESS NOTE This is a late entry of 12/15/2017 covers elements not covered in my initial note of 12/15/2017. I met with the patient in the evening. I met with her on 3 different occasions as she was back again and again with other questions consequent to her anxiety. She slept 6-1/4 hours, was quite delusional, pot tender, believing she was having a baby, then holding up a baby in her arm to nursing staff, somewhat obsessive, angry in the evening. REVIEW OF SYSTEMS: No CV, , pulmonary, eye, ENT system symptoms on review. She has vague somatic symptoms. MENTAL STATUS EXAM: Oriented to herself and situation. Speech coherent, rapid at times. Abstraction fair, computation impaired, language function intact. Mood and affect remain somewhat obsessive and anxious. IMPRESSION: Unchanged from initial note. PLAN: Continue psychotropics mentioned in my initial note. Clozaril was just increased. JASS HUNG MD DR: KATIANA/alicia JOB#: [id number] / [id number]
[2017-12-17] MEDS ORDERED: levoFLOXacin 500 MG TABLET PO SCH (06:00)
[2017-12-17] MEDS ORDERED: LACTOBACILLUS RHAMNOSUS GG 1 CAPSULE. PO SCH (09:00)
[2017-12-17 09:07] VITALS: BP 135/48
[2017-12-17] MEDS ORDERED: LACT1CAP19 PO (09:26)
[2017-12-17] MEDS ORDERED: DIVA500T4 PO (09:28)
[2017-12-17] MEDS ORDERED: OLAN5TAB5 PO (09:29)
[2017-12-17] MEDS ORDERED: METH29OI TP (09:29)
[2017-12-17] MEDS ORDERED: WITC1MED PR (09:30)
[2017-12-17] MEDS ORDERED: POLY1DRO3 OU (09:30)
[2017-12-17] MEDS ORDERED: POLY17PO5 PO (09:30)
[2017-12-17] MEDS ORDERED: LEVO500T59 PO (09:31)
[2017-12-17] MEDS ORDERED: FLUV50TA2 PO (09:31)
[2017-12-17] MEDS ORDERED: CLOZ25TA PO (09:31)
[2017-12-17] MEDS ORDERED: TRAZ50TA15 PO (09:32)
[2017-12-17] MEDS ORDERED: IV NORMAL SALINE 1,000ML 1,000 ML IV SCH (11:01)
[2017-12-17] MEDS ORDERED: ONDANSETRON PF 4 MG/2 ML VIAL. IV PRN (11:15)
[2017-12-17] MEDS ORDERED: IPRATRPIUM/ALBUTEROL 0.5/2.5MG 3 ML NEBU. NEB SCH (12:00)
--- NOTE | 2017-12-17 18:10 | PDOC ---
Exam Note: Tay Note: Please also refer to the separate dictated note~for this date of service dictated separately.~Patient seen individually. Discussed the patient with Nursing staff reviewed the chart.~Reviewed interim history and current functioning. Reviewed vital signs,~Labs/ Radiology~and current medications noted below. Continue current treatment with the changes noted in the dictated addendum note Assessment: Vital Signs: Vital Signs Date Time Temp Pulse Resp B/P (MAP) Pulse Ox O2 Delivery O2 Flow Rate FiO2 12/17/17 09:07 98.3 100 20 135/48 (77) 98 12/15/17 06:16 Room Air I&O Intake and Output 12/17/17 07:00 Intake Total 840 ml Balance 840 ml Intake Oral 840 ml # Voids 1 Labs: Laboratory Tests Test 12/16/17 19:27 12/17/17 07:55 Glucose (Fingerstick) 253 mg/dL (70-99) H 79 mg/dL (70-99) Current Medications: Meds: Current Medications Ciprofloxacin Lactate 200 ml @ 200 mls/hr 1X ONCE IV ; Start 11/23/17 at 16:30 ; Stop 11/23/17 at 16:31; Status DC Ciprofloxacin (Cipro) 500 mg 1X ONCE PO Last administered on 11/23/17at 16:45; Start 11/23/17 at 17:00; Stop 11/23/17 at 17:01; Status DC Acetaminophen (Tylenol) 650 mg PRN Q6HRS PRN PO PAIN / TEMP; Start 11/23/17 at 17:45; Status Cancel Multi-Ingredient Ointment (Analgesic [place]) 1 caridad PRN QID PRN TP MUSCLE PAIN; Start 11/23/17 at 17:45; Stop 12/17/17 at 10:45; Status DC Al Hydroxide/Mg Hydroxide (Mylanta Plus Xs) 15 ml PRN AFTMEALHC PRN PO DYSPEPSIA Last administered on 12/11/17at 09:45; Start 11/23/17 at 17:45; Stop 05/27 at 10:45; Status DC Magnesium Hydroxide (Milk Of Magnesia) 2,400 mg PRN QHS PRN PO CONSTIPATION Last administered on 12/05/17at 14:09; Start 11/23/17 at 17:45; Stop 12/17/17 at 10:45; Status DC Aripiprazole (Abilify) 15 mg BID PO Last administered on 12/16/17at 08:41; Start 11/24/17 at 09:00; Stop 12/16/17 at 18:08; Status DC Clonazepam (KlonoPIN) 0.5 mg BID PO Last administered on 12/06/17at 08:02; Start 11/24/17 at 09:00; Stop 12/06/17 at 18:24; Status DC Haloperidol Lactate (Haldol) 5 mg PRN Q4HRS PRN IM AGITATION; Start 11/23/17 at 22:15; Stop 12/17/17 at 10:45; Status DC Haloperidol (Haldol) 20 mg BID PO Last administered on 11/27/17at 08:57; Start 11/24/17 at 09:00; Stop 11/27/17 at 18:23; Status DC Acetaminophen (Tylenol) 500 mg PRN Q6HRS PRN PO PAIN Last administered on at 09:16; Start 11/23/17 at 22:15; Stop 12/17/17 at 10:45; Status DC Amlodipine Besylate (Norvasc) 10 mg DAILY PO Last administered on 12/16/17at 08: 43; Start 11/24/17 at 09:00; Stop 12/17/17 at 10:45; Status DC Aspirin (Aspirin Enteric Coated) 81 mg DAILY PO Last administered on 12/16/17at 08:43; Start 11/24/17 at 09:00; Stop 12/17/17 at 10:45; Status DC Cetirizine HCl (ZyrTEC) 10 mg DAILY PO Last administered on 12/16/17at 08:43; Start 11/24/17 at 09:00; Stop 12/17/17 at 10:45; Status DC Clonidine HCl (Catapres) 0.1 mg HS PO Last administered on 12/16/17at 19:59; Start 11/24/17 at 21:00; Stop 12/17/17 at 10:45; Status DC Docusate Sodium (Colace) 100 mg DAILY PO Last administered on 12/16/17at 08:42; Start 11/24/17 at 09:00; Stop 12/17/17 at 10:45; Status DC Docusate Sodium (Colace) 100 mg PRN DAILY PRN PO CONSTIPATION; Start 11/23/17 at 22:15; Stop 12/17/17 at 10:45; Status DC Erythromycin (E-Mycin) 250 mg TIDPC PO Last administered on 11/25/17at 16:39; Start 11/24/17 at 08:30; Stop 11/25/17 at 18:49; Status DC Famotidine (Pepcid) 20 mg BID PO Last administered on 12/16/17at 20:00; Start at 09:00; Stop 12/17/17 at 10:45; Status DC Furosemide (Lasix) 40 mg DAILY PO Last administered on 12/16/17 08:43; Start at 09:00; Stop 12/17/17 at 10:46; Status DC Gabapentin (Neurontin) 300 mg BID PO Last administered on 12/03/17at 08:10; Start 11/24/17 at 09:00; Stop 12/03/17 at 19:08; Status DC Gemfibrozil (Lopid) 600 mg BIDWMEALS PO Last administered on 12/16/17 17:27; Start 11/24/17 at 08:00; Stop 12/17/17 at 10:46; Status DC Glucagon (Glucagen Kit) 1 mg PRN 1X PRN SQ hypoglycemia; Start 11/23/17 at 22: 15; Stop 12/17/17 at 10:46; Status DC Insulin Human Lispro (HumaLOG) 4 units DAILYWBKFT SQ Last administered on 08:52; Start 11/24/17 at 08:00; Stop 12/17/17 at 10:46; Status DC Insulin Human Lispro (HumaLOG) 8 units DAILYBFRLUN SQ Last administered on at 12:22; Start 11/24/17 at 11:30; Stop 12/17/17 at 10:46; Status DC Insulin Human Lispro (HumaLOG) 10 units DAILYBFRSUP SQ Last administered on 12/16 17:28; Start 11/24/17 at 17:00; Stop 12/17/17 at 10:46; Status DC Insulin Glargine (Lantus) 16 units HS SQ Last administered on 5/9/18at 20:03; Start 11/23/17 at 23:00; Stop 12/17/17 at 10:46; Status DC Insulin Glargine (Lantus) 26 units DAILYWBKFT SQ Last administered on 12/16/17at 08:48; Start 11/24/17 at 08:00; Stop 12/17/17 at 10:46; Status DC Lisinopril (Prinivil) 20 mg DAILY PO Last administered on 12/16/17at 08:44; Start 11/24/17 at 09:00; Stop 12/17/17 at 10:46; Status DC Magnesium Oxide (Magnesium Oxide) 400 mg DAILY PO Last administered on at 08:43; Start 11/24/17 at 09:00; Stop 12/17/17 at 10:46; Status DC Sennosides (Senna) 8.6 mg BID PO Last administered on 12/16/17at 20:00; Start at 09:00; Stop 12/17/17 at 10:46; Status DC Tramadol HCl (Ultram) 50 mg PRN Q6HRS PRN PO PAIN Last administered on at 10:06; Start 11/23/17 at 22:15; Stop 12/17/17 at 10:46; Status DC Fluticasone Propionate (Flonase) 2 spray PRN DAILY PRN NS ALLERGIES Last administered on 12/09/17at 08:40; Start 11/24/17 at 09:00; Stop 12/17/17 at 10:46 ; Status DC Non-Formulary Medication (Gly/Dimeth/ Petrolat,Wht/ Water (Moisturizing Cream)) 1 caridad PRN PRN TP skin protectant; Start 11/23/17 at 22:15; Status UNV Non-Formulary Medication (Mag Hydrox/Al Hydrox/Simeth (Mintox Suspension)) 15 ml PRN BID PRN PO gerd; Start 11/23/17 at 22:15; Status UNV Non-Formulary Medication (Magnesium Hydroxide (Milk Of Magnesia)) 2,400 mg PRN DAILY PRN PO CONSTIPATION; Start 11/23/17 at 22:15; Status UNV Multivitamins/ Calcium (Thera-M Plus) 1 tab DAILY PO Last administered on 08:41; Start 11/24/17 at 09:00; Stop 12/17/17 at 10:46; Status DC Pioglitazone HCl (Actos) 30 mg DAILY PO Last administered on 12/16/17 08:41; Start 11/24/17 at 09:00; Stop 12/17/17 at 10:46; Status DC Potassium Chloride (Klor-Con) 10 meq DAILY PO Last administered on 12/16/17 08: 44; Start 11/24/17 at 09:00; Stop 12/17/17 at 10:46; Status DC Simethicone (Gas-X) 120 mg TID PO Last administered on 12/16/17 20:00; Start at 09:00; Stop 12/17/17 at 10:46; Status DC Divalproex Sodium (Depakote Er) 500 mg HS PO Last administered on 11/26/17 19: 33; Start 11/24/17 at 21:00; Stop 11/27/17 at 18:23; Status DC Phenylephrine/ Shark Liver Oil (Preparation H) 1 supp PRN Q8HRS PRN WA RECTAL PAIN Last administered on 12/14/17 21:08; Start 11/24/17 at 19:00; Stop at 10:46; Status DC Lactobacillus Rhamnosus (Culturelle) 1 cap BID PO Last administered on 08:02; Start 11/25/17 at 21:00; Stop 12/13/17 at 13:56; Status DC Fluvoxamine Maleate (Luvox) 25 mg HS PO Last administered on 12/01/17at 20:56; Start 11/25/17 at 21:00; Stop 12/02/17 at 18:28; Status DC Olanzapine (ZyPREXA ZYDIS) 2.5 mg PRN Q2HR PRN PO PSYCHOSIS Last administered on 12/11/17 10:25; Start 11/25/17 at 18:15; Stop 12/17/17 at 10:46; Status DC Cyanocobalamin (Vitamin B-12) 1,000 mcg QMONTH IM ; Start 11/26/17 at 09:00; Stop 11/26/17 at 09:00; Status DC Divalproex Sodium (Depakote Er) 1,000 mg HS PO Last administered on 11/29/17 19:22; Start 11/27/17 at 21:00; Stop 11/30/17 at 18:31; Status DC Haloperidol (Haldol) 20 mg DAILY PO Last administered on 12/05/17 09:21; Start 11/28/17 at 09:00; Stop 12/05/17 at 15:45; Status DC Haloperidol (Haldol) 15 mg HS PO Last administered on 12/04/17 19:20; Start at 21:00; Stop 12/05/17 at 15:45; Status DC Polyethylene Glycol (miraLAX) 17 gm DAILY PO ; Start 11/30/17 at 12:30; Stop at 12:30; Status DC Polyethylene Glycol (miraLAX) 17 gm DAILY PO Last administered on 12/16/17 08: 41; Start 11/30/17 at 09:00; Stop 12/17/17 at 10:46; Status DC Divalproex Sodium (Depakote Er) 1,500 mg HS PO Last administered on 12/16/17 20 :00; Start 11/30/17 at 21:00; Stop 12/17/17 at 10:46; Status DC Fluvoxamine Maleate (Luvox) 50 mg HS PO Last administered on 12/16/17 19:59; Start 12/02/17 at 21:00; Stop 12/17/17 at 10:46; Status DC Gabapentin (Neurontin) 300 mg TID PO Last administered on 12/16/17 20:00; Start 12/03/17 at 21:00; Stop 12/17/17 at 10:46; Status DC Clozapine (Clozaril) 25 mg HS PO Last administered on 12/08/17 19:33; Start at 21:00; Stop 12/09/17 at 18:53; Status DC Haloperidol (Haldol) 15 mg BID PO Last administered on 12/16/17 19:58; Start at 21:00; Stop 12/17/17 at 10:46; Status DC Clonazepam (KlonoPIN) 0.25 mg BID PO Last administered on 5/2/18at 19:48; Start 12/06/17 at 21:00; Stop 12/09/17 at 22:00; Status DC Artificial Tears (Refresh Classic) 1 drop PRN Q15MIN PRN OU DRY EYE Last administered on 12/15/17at 11:50; Start 12/07/17 at 15:45; Stop 12/17/17 at 10:46 ; Status DC Trazodone HCl (Desyrel) 12.5 mg TID@0900,1300,1700 PO Last administered on at 08:46; Start 12/08/17 at 09:00; Stop 12/17/17 at 10:46; Status DC Clozapine (Clozaril) 50 mg HS PO Last administered on 12/13/17at 19:52; Start 12/09/17 at 21:00; Stop 12/14/17 at 19:15; Status DC Clozapine (Clozaril) 75 mg HS PO Last administered on 12/16/17at 19:58; Start 12/14/17 at 21:00; Stop 12/17/17 at 10:46; Status DC Levofloxacin (Levaquin) 500 mg DAILY06 PO ; Start 12/17/17 at 06:00; Stop at 10:46; Status DC Aripiprazole (Abilify) 10 mg BID PO Last administered on 12/16/17at 20:01; Start 12/16/17 at 21:00; Stop 12/17/17 at 10:46; Status DC Lactobacillus Rhamnosus (Culturelle) 1 cap BID PO ; Start 12/17/17 at 09:00; Stop 12/17/17 at 10:46; Status DC Sodium Chloride 1,000 ml @ 100 mls/hr Q10H IV ; Start 12/17/17 at 11:01 Ondansetron HCl (Zofran) 4 mg PRN Q8HRS PRN IV NAUSEA/VOMITING; Start 12/17/17 at 11:15 Levofloxacin/ Dextrose (Levaquin Per Pharmacy) 1 each PRN DAILY PRN MC SEE COMMENTS; Start 12/17/17 at 11:15 Albuterol/ Ipratropium (Duoneb) 3 ml RTQID NEB ; Start 12/17/17 at 12:00 Active Scripts Active Reported Trazodone Hcl 50 Mg Tablet 12.5 Mg PO TID@0900,1300,1700 Levaquin (Levofloxacin) 500 Mg Tablet 1 Tab PO DAILY06 Fluvoxamine Maleate 50 Mg Tablet 1 Tab PO QHS Clozaril (Clozapine) 25 Mg Tablet 75 Mg PO QHS Refresh Classic Eye Drops (Polyvinyl Alcohol/Povidone/Pf) 1 Each Droperette 1 Drop OU PRN Q15MIN PRN Miralax (Polyethylene Glycol 3350) 17 Gm Powd.pack 1 Packet PO DAILY Preparation H (Witch Danielle) 1 Each Med..pad 1 Supp WA PRN Q8HRS PRN Analgesic [place] (Methyl Salicylate/Menthol) 28 Gm Oint...g. 1 Gm TP PRN QID PRN Zyprexa Zydis (Olanzapine) 5 Mg Tab.rapdis 2.5 Mg PO PRN Q2HR PRN Depakote Er (Divalproex Sodium) 500 Mg Tab.er.24h 1,500 Tab PO QHS Culturelle (Lactobacillus Rhamnosus Gg) 1 Each Cap.sprink 1 Each PO BID Tramadol Hcl (Tramadol HCl) 50 Mg Tablet 50 Mg PO PRN Q6HRS PRN Multi Vitamin Daily (Multivitamin) 1 Each Tablet 1 Tab PO DAILY Simethicone 125 Mg Capsule 120 Mg PO TID Senna Lax (Sennosides) 8.6 Mg Tablet 8.6 Mg PO BID Potassium Chloride 10 Meq Tablet.er 10 Meq PO DAILY Actos (Pioglitazone Hcl) 30 Mg Tablet 30 Mg PO DAILY Pepcid (Famotidine) 20 Mg Tablet 20 Mg PO BID Novolog Flexpen (Insulin Aspart) 100 Unit/1 Ml Insuln.pen 8 Units SQ DAILYBFRLUN Novolog Flexpen (Insulin Aspart) 100 Unit/1 Ml Insuln.pen 4 Units SQ DAILYWBKFT Novolog Flexpen (Insulin Aspart) 100 Unit/1 Ml Insuln.pen 10 Unit SQ DAILYBFRSUP Mintox Suspension (Mag Hydrox/Al Hydrox/Simeth) 355 Ml Oral.susp 15 Ml PO PRN BID PRN Milk Of Magnesia (Magnesium Hydroxide) 2,400 Mg/10 Ml Oral.susp 2,400 Mg PO PRN DAILY PRN Mapap (Acetaminophen) 500 Mg Tablet 500 Mg PO PRN Q6HRS PRN Magnesium Oxide 400 Mg Tablet 400 Mg PO DAILY Lisinopril 20 Mg Tablet 20 Mg PO DAILY Levemir Flextouch (Insulin Detemir) 100 Unit/1 Ml Insuln.pen 26 Units SQ DAILYWBKFT Levemir Flextouch (Insulin Detemir) 100 Unit/1 Ml Insuln.pen 16 Units SQ HS Lasix (Furosemide) 40 Mg Tablet 40 Mg PO DAILY Haloperidol 10 Mg Tablet 15 Mg PO BID Haloperidol Lactate 5 Mg/1 Ml Vial 5 Mg IM PRN Q4HRS PRN Glucagen (Glucagon,Human Recombinant) 1 Mg/1 Ml Vial 1 Mg SQ PRN PRN Gemfibrozil 600 Mg Tablet 600 Mg PO BID Gabapentin 300 Mg Capsule 300 Mg PO TID Flonase Allergy Relief (Fluticasone Propionate) 9.9 Ml Walker.susp 2 Sprays NS PRN PRN Docusate Sodium 100 Mg Capsule 100 Mg PO DAILY Docusate Sodium 100 Mg Capsule 100 Mg PO PRN DAILY PRN Clonidine Hcl 0.1 Mg Tablet 0.1 Mg PO HS Cetirizine Hcl 10 Mg Tablet 10 Mg PO DAILY Aspirin Ec (Aspirin) 81 Mg Tablet.dr 81 Mg PO DAILY Amlodipine Besylate 10 Mg Tablet 10 Mg PO DAILY Abilify (Aripiprazole) 15 Mg Tablet 10 Mg PO BID I have reviewed the current psychotropics carefully including drug interactions. Risk benefit ratio favors no change other than as noted in my dictated progress note. Diagnosis: Problems: (1) Schizophrenia, disorganized, subchronic with acute exacerbation (2) Schizoaffective disorder, chronic condition with acute exacerbation (3) Bipolar affective, mixed, sev w/ psych (4) Anxiety disorder JASS HUNG MD December 17, 2017 18:09
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
--- NOTE | 2017-12-19 12:26 | PN ---
DATE: 12/16/2017 PSYCHIATRIC PROGRESS NOTE This late entry 12/16/2017 covers elements not covered in my initial note of 12/16/2017. SUBJECTIVE: Met with the patient in the evening. The patient slept 8-3/4 hours, somewhat unsteady in wheelchair in the morning, had some arm joking. Chest x-ray shows pneumonia and started on Levaquin. We will defer to Dr. Bishop. REVIEW OF SYSTEMS: Positive for tiredness, to some shortness of breath. No CV, , GI system symptoms on review. MENTAL STATUS EXAM: Met with her in the evening, felt oriented to herself, situation. Speech has some latency, coherent. Mood and affect is somewhat withdrawn. No suicidal or homicidal ideation. Attention span is short. Language function is intact. IMPRESSION: Unchanged from initial note plus pneumonia. PLAN: Reduce Abilify to 10 mg twice a day. Rest unchanged from initial note. MAN Prosper HUNG MD DR: KATIANA/alicia JOB#: [id number] / [id number]
== END 2017-12-17 10:44 | disposition short-term general hospital (02) | DRG 885 ==
LOC: ER 15:27 → GEROPSY 17:10
PROVIDERS: ADMIT Psychiatry & Neurology Psychiatry; ATTEND Psychiatry & Neurology Psychiatry
DX: F25.0 Schizoaffective disorder, bipolar type (principal); J18.9 Pneumonia, unspecified organism; E11.22 Type 2 diabetes mellitus with diabetic chronic kidney disease; E11.649 Type 2 diabetes mellitus with hypoglycemia without coma; N18.3 Chronic kidney disease, stage 3 (moderate); R45.851 Suicidal ideations; N39.0 Urinary tract infection, site not specified; K31.84 Gastroparesis; E11.43 Type 2 diabetes mellitus with diabetic autonomic (poly)neuropathy; S91.312A Laceration without foreign body, left foot, initial encounter; G40.909 Epilepsy, unspecified, not intractable, without status epilepticus; E78.00 Pure hypercholesterolemia, unspecified; E78.5 Hyperlipidemia, unspecified; I12.9 Hypertensive chronic kidney disease with stage 1 through stage 4 chronic kidney disease, or unspecified chronic kidney disease; F42.9 Obsessive-compulsive disorder, unspecified; F43.20 Adjustment disorder, unspecified; F60.3 Borderline personality disorder; F63.9 Impulse disorder, unspecified; G89.29 Other chronic pain; K59.09 Other constipation; K64.9 Unspecified hemorrhoids; D64.9 Anemia, unspecified; E04.9 Nontoxic goiter, unspecified; L64.9 Androgenic alopecia, unspecified; F41.9 Anxiety disorder, unspecified; X58.XXXA Exposure to other specified factors, initial encounter; Y93.89 Activity, other specified; Y92.89 Other specified places as the place of occurrence of the external cause; Y99.8 Other external cause status; Z79.899 Other long term (current) drug therapy; Z88.0 Allergy status to penicillin; Z88.8 Allergy status to other drugs, medicaments and biological substances; Z91.040 Latex allergy status; Z98.51 Tubal ligation status; Z79.82 Long term (current) use of aspirin; Z79.4 Long term (current) use of insulin
CPT/HCPCS: 36415; 71045; 74176; 80053; 80061; 80164; 80307; 81001; 82306; 82607; 82947; 83036; 83540; 83550; 83735; 84436; 84443; 84480; 85025; 86021; 86593; 87086; 93005; G0480; J1815; 99285-25; G0479

== ENCOUNTER 2017-12-17 10:45 | Inpatient (IN) | payer MEDICARE, MEDICAID ==
[~2017-12-17] VITALS: Ht 152.4 cm; Wt 95.3 kg
[2017-12-17] VITALS (9 sets, daily range): BP systolic 116–147; BP diastolic 46–71
[~2017-12-17 10:45] MED LIST: ACET500T55 PO; AMLO10TA2 PO; ARIP15TA36 PO; ASPI-612 PO; ATOR10TA PO; CETI10TA16 PO; CLON0.1T PO; CLON0.5T3 PO; CLOZ25TA PO; DIVA500T4 PO; DOCU100C28 PO; ERYT250T14 PO; FAMO-63 PO; FLUT9.9S NS; FLUV50TA2 PO; FURO-68 PO; GABA-586 PO; GEMF600T3 PO; GLUC1VIA3 SQ; HALO10TA PO; HALO5VIA2 IM; INSU100I17 SQ; INSU100I27 SQ; LACT1CAP19 PO; LEVO500T59 PO; LISI-334 PO; MAG355OR33 PO; MAGN2400 PO; MAGN400T3 PO; METH29OI TP; MULT-245 PO; OLAN5TAB5 PO; PIOG30TA41 PO; POLY17PO5 PO; POLY1DRO3 OU; POTA10TA10 PO; SENN-87 PO; SIME125C65 PO; TRAM50TA PO; TRAZ50TA15 PO; WITC1MED PR; [UNRECOGNIZED DRUG - CODE] TP
[2017-12-17] MEDS ORDERED: traMADol 50 MG TABLET PO PRN (11:15)
[2017-12-17] MEDS ORDERED: ONDANSETRON PF 4 MG/2 ML VIAL. IV PRN (11:30)
[2017-12-17] MEDS ORDERED: INSULIN ASPART 300 UNITS/3 ML INSULN.PEN SQ SCH ×2 (11:30→17:00)
[2017-12-17 11:50] LABS: BASO % 0 % (0-3); EOS # 0.3 x10^3/uL (0.0-0.7); EOS % 3 % (0-3); HEMATOCRIT 32.7 % (36.0-47.0); HEMOGLOBIN 10.5 g/dL (12.0-15.5); LYMPH # 2.1 x10^3/uL (1.0-4.8); LYMPH % 23 % (24-48); MEAN CORPUSCULAR HEMOGLOBIN 27 pg (25-35); MEAN CORPUSCULAR HGB CONC 32 g/dL (31-37); MEAN CORPUSCULAR VOLUME 85 fL (79-100); MONO # 0.7 x10^3/uL (0.0-1.1); MONO % 7 % (0-9); NEUT # 6.2 x10^3uL (1.8-7.7); NEUT % 67 % (31-73); PLATELET COUNT 241 x10^3/uL (140-400); RED BLOOD COUNT 3.87 x10^6/uL (3.50-5.40); RED CELL DISTRIBUTION WIDTH 16.7 % (11.5-14.5); WHITE BLOOD COUNT 9.3 x10^3/uL (4.0-11.0)
[2017-12-17] MEDS ORDERED: FLUTICASONE 50MCG/NASAL SPRAY 16GM BOTTLE. NS PRN ×2 (12:00→12:01)
[2017-12-17] MEDS ORDERED: ACETAMINOPHEN 500 MG TABLET PO PRN (12:00)
[2017-12-17] MEDS ORDERED: DOCUSATE SODIUM 100 MG CAPSULE PO PRN (12:00)
[2017-12-17 12:06] LABS: ALBUMIN 2.9 g/dL (3.4-5.0); ALBUMIN/GLOBULIN RATIO 0.7 (1.0-1.7); CALCIUM 8.7 mg/dL (8.5-10.1); MAGNESIUM 2.8 mg/dL (1.8-2.4); POTASSIUM 4.2 mmol/L (3.5-5.1); TOTAL BILIRUBIN 0.2 mg/dL (0.2-1.0)
[2017-12-17] MEDS: IPRATRPIUM/ALBUTEROL 0.5/2.5MG 3 ML NEBU. NEB SCH ×3 (12:10→20:09)
[2017-12-17 12:11] LABS: BACTERIA,URINE FEW /HPF (0-FEW); BILIRUBIN,URINE NEG (NEG); CLARITY,URINE CLEAR; COLOR,URINE YELLOW; GLUCOSE,URINE NEG (NEG); NITRITE,URINE NEG (NEG); SQUAMOUS EPITHELIAL CELL,UR FEW /LPF; UROBILINOGEN,URINE 0.2 mg/dL (0.2 mg/dL)
[2017-12-17 12:14] LABS: BGAS PH 7.44 (7.35-7.45)
[2017-12-17] MEDS ORDERED: ARIPiprazole 10 MG TABLET PO ONE (12:15)
[2017-12-17] MEDS ORDERED: HALOPERIDOL 5 MG TABLET PO ONE (12:15)
[2017-12-17 12:18] LABS: % BANDS 2 % (0-9); % EOS 4 % (0-5); % LYMPHS 22 % (24-48); % MONOS 4 % (0-10); % SEGS 68 % (35-66)
[2017-12-17 12:19] LABS: TOXIC GRANULATION SLIGHT; TOXIC VACUOLATION SLIGHT
[2017-12-17 12:20] LABS: PLT ESTIMATE ADEQUATE (ADEQUATE); POLYCHROMASIA SLIGHT
[2017-12-17 12:21] LABS: ANISOCYTOSIS SLIGHT
[2017-12-17] MEDS: MEROPENEM 1 GM in IV NORMAL SALINE 100ML 100 ML IV SCH (12:23)
[2017-12-17] MEDS: IV NORMAL SALINE 1,000ML 1,000 ML IV SCH ×2 (12:31→23:36)
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
[2017-12-17] MEDS: SIMETHICONE 80 MG TAB.CHEW PO SCH ×2 (13:24→13:34)
[2017-12-17] MEDS: traZODone 50 MG TABLET. PO SCH ×2 (13:34→16:52)
[2017-12-17] MEDS: GABAPENTIN 300 MG CAPSULE. PO SCH ×2 (13:34→20:53)
[2017-12-17] MEDS: GEMFIBROZIL 600 MG TABLET. PO SCH (16:52)
[2017-12-17] MEDS: cloZAPine 25 MG TABLET PO SCH (20:53)
[2017-12-17] MEDS: FAMOTIDINE 20 MG TABLET PO SCH (20:53)
[2017-12-17] MEDS: HALOPERIDOL 5 MG TABLET PO SCH (20:53)
[2017-12-17] MEDS: LACTOBACILLUS RHAMNOSUS GG 1 CAPSULE. PO SCH (20:53)
[2017-12-17] MEDS: ARIPiprazole 10 MG TABLET PO SCH (20:54)
[2017-12-17] MEDS: DIVALPROEX ER 500 MG TAB.ER.24H PO SCH (20:54)
[2017-12-17] MEDS: SENNOSIDES 8.6 MG TABLET PO SCH (20:54)
[2017-12-17] MEDS: cloNIDine HCL 0.1 MG TABLET PO SCH (20:54)
[2017-12-17] MEDS: INSULIN GLARGINE 300 UNITS/3 ML INSULN.PEN. SQ SCH (21:22)
[2017-12-18] VITALS (19 sets, daily range): BP systolic 100–177; BP diastolic 51–101
[2017-12-18] MEDS: MEROPENEM 1 GM in IV NORMAL SALINE 100ML 100 ML IV SCH ×3 (00:54→23:47)
[2017-12-18] MEDS: HALOPERIDOL LACT 5 MG/ML VIAL. IM PRN ×2 (01:53→17:21)
[2017-12-18] MEDS: IPRATRPIUM/ALBUTEROL 0.5/2.5MG 3 ML NEBU. NEB SCH ×4 (05:46→20:24)
[2017-12-18] MEDS ORDERED: LEVOFLOXACIN PO SCH (06:00)
[2017-12-18] MEDS: IV NORMAL SALINE 1,000ML 1,000 ML IV SCH (07:20)
[2017-12-18 07:41] LABS: BASO % 0 % (0-3); EOS # 0.3 x10^3/uL (0.0-0.7); EOS % 6 % (0-3); HEMATOCRIT 31.6 % (36.0-47.0); LYMPH # 1.3 x10^3/uL (1.0-4.8); LYMPH % 23 % (24-48); MEAN CORPUSCULAR HEMOGLOBIN 27 pg (25-35); MEAN CORPUSCULAR HGB CONC 32 g/dL (31-37); MEAN CORPUSCULAR VOLUME 85 fL (79-100); MONO # 0.7 x10^3/uL (0.0-1.1); MONO % 12 % (0-9); NEUT # 3.2 x10^3uL (1.8-7.7); NEUT % 59 % (31-73); PLATELET COUNT 222 x10^3/uL (140-400); RED BLOOD COUNT 3.72 x10^6/uL (3.50-5.40); WHITE BLOOD COUNT 5.4 x10^3/uL (4.0-11.0)
[2017-12-18 07:45] LABS: CALCIUM 8.4 mg/dL (8.5-10.1); CREATININE 2.2 mg/dL (0.6-1.0); GFR 28.6; MAGNESIUM 2.3 mg/dL (1.8-2.4)
[2017-12-18] MEDS ORDERED: INSULIN ASPART 300 UNITS/3 ML INSULN.PEN SQ SCH (08:00)
[2017-12-18] MEDS: PIOGLITAZONE 15 MG TABLET. PO SCH (08:18)
[2017-12-18] MEDS: MAGNESIUM OXIDE 400 MG TABLET PO SCH (08:18)
[2017-12-18] MEDS: GABAPENTIN 300 MG CAPSULE. PO SCH ×3 (08:18→20:21)
[2017-12-18] MEDS: ARIPiprazole 10 MG TABLET PO SCH ×2 (08:18→20:22)
[2017-12-18] MEDS: DOCUSATE SODIUM 100 MG CAPSULE PO SCH (08:18)
[2017-12-18] MEDS: LACTOBACILLUS RHAMNOSUS GG 1 CAPSULE. PO SCH ×2 (08:18→20:30)
[2017-12-18] MEDS: LISINOPRIL 20 MG TABLET PO SCH (08:18)
[2017-12-18] MEDS: FUROSEMIDE 40 MG TABLET PO SCH (08:18)
[2017-12-18] MEDS: MULTIVITAMIN with MINERAL TABLET. PO SCH (08:19)
[2017-12-18] MEDS: GEMFIBROZIL 600 MG TABLET. PO SCH ×2 (08:19→17:15)
[2017-12-18] MEDS: SENNOSIDES 8.6 MG TABLET PO SCH ×2 (08:19→20:29)
[2017-12-18] MEDS: POTASSIUM CHLORIDE 10 MEQ TABLET.ER. PO SCH (08:19)
[2017-12-18] MEDS: ASPIRIN ENTERIC COATED 81 MG TABLET.DR. PO SCH (08:19)
[2017-12-18] MEDS: amLODIPine BESYLATE 10 MG TABLET PO SCH (08:19)
[2017-12-18] MEDS: traZODone 50 MG TABLET. PO SCH ×3 (08:19→17:15)
[2017-12-18] MEDS: CETIRIZINE HCL 10 MG TABLET PO SCH (08:20)
[2017-12-18] MEDS: FAMOTIDINE 20 MG TABLET PO SCH ×2 (08:20→20:21)
[2017-12-18] MEDS: SIMETHICONE 80 MG TAB.CHEW PO SCH ×3 (08:20→20:51)
[2017-12-18] MEDS: HALOPERIDOL 5 MG TABLET PO SCH ×2 (08:21→20:19)
[2017-12-18] MEDS: INSULIN GLARGINE 300 UNITS/3 ML INSULN.PEN. SQ SCH ×2 (08:23→20:23)
[2017-12-18] MEDS: INSULIN LISPRO 300 UNITS/3 ML INSULN.PEN. SQ SCH ×3 (08:53→17:21)
[2017-12-18] MEDS: POLYETHYLENE GLYCOL 3350 17 GM PACKET. PO SCH (08:54)
--- NOTE | 2017-12-18 14:44 | RAD ---
PORTABLE CHEST 1V Clinical indications: shortness OF AIR COMPARISON: December 16, 2017. Findings: The previously seen bilateral interstitial pulmonary edema or bronchitis has significantly improved. Mild residual bronchitis or interstitial pulmonary edema is still present. Left lung base is better aerated. No pleural effusion or pneumothorax is seen. The heart size, pulmonary vasculature, mediastinum and both alissa are stable. Impression: Improvement of interstitial pulmonary edema or bronchitis since December 16, 2017. Electronically signed by: Travis Zhang MD (12/18/2017 2:41 PM) [facility]
--- NOTE | 2017-12-18 16:17 | RAD ---
V/Q LUNG SCAN (NO CHARGE) CLINICAL INDICATIONS: Hemoptysis. Chest pain. Hypoxia. COMPARISON: Chest x-ray performed today. No previous lung scan available. TECHNIQUE: After inhalation of 33.0 mCi of Xenon 133 gas, anterior and posterior planar images of the lung quintero were performed in the single breath and equilibrium and washout phases. 6.1 mCi of technetium 99m MAA was given intravenously. At this time, the patient demanded to be taken out of the scanner and refused any more imaging. Therefore, the perfusion study cannot be completed. FINDINGS: No ventilatory defect or retention of radiotracer activity is seen. IMPRESSION: No perfusion imaging could be completed on this study. Therefore evaluation for pulmonary embolism cannot be completed. Electronically signed by: Travis Zhang MD (12/18/2017 4:14 PM) [facility]
[2017-12-18] MEDS: DIVALPROEX ER 500 MG TAB.ER.24H PO SCH (20:20)
[2017-12-18] MEDS: cloZAPine 25 MG TABLET PO SCH (20:20)
[2017-12-18] MEDS: cloNIDine HCL 0.1 MG TABLET PO SCH (20:21)
[2017-12-19] VITALS (10 sets, daily range): BP systolic 92–175; BP diastolic 50–71
--- NOTE | 2017-12-19 05:25 | PN ---
DATE: 12/18/2017 SUBJECTIVE: The patient is sitting on the edge of the bed, eating her lunch. She continued to have cough productive of sputum with tinged bit of blood. She continues also to desaturate when she removes her oxygen down to 85%. She also has marked flapping tremor. PHYSICAL EXAMINATION: GENERAL: When I examined her, she was somewhat pale, but no jaundice or cyanosis. No lymphadenopathy, no thyromegaly. No jugular venous distention. No lower limb edema. VITAL SIGNS: Her heart rate was 84, blood pressure 159/92, temperature was 97.8, respiratory rate was 22 and oxygen saturation was 94% on 2 liters of oxygen that dropped down to 85% on room air. HEAD, EYES, EARS, NOSE AND THROAT: Showed normocephalic, atraumatic. NECK: Supple. HEART: Showed normal first and second heart sounds with no gallop, rub or murmur. CHEST: Shows central trachea, equal chest expansion, air entry, vesicular sounds with bilateral basal crepitation, more in the left than the right. I could not really appreciate any wheezing. ABDOMEN: Distended, soft, nontender. No guarding or rigidity. No organomegaly. Hernial orifices intact. Bowel sounds normal. NEUROLOGIC: She was awake, alert. All her cranial nerves intact. She moves extremities without difficulty. She ambulates without assistance or assistive device; however, she has prominent flapping tremor. LABORATORY DATA: Her intake was 3700, output was 4550. As of this morning, her white cell count was down to 5400; hemoglobin 10; hematocrit 32; MCV 85 and platelet count 222,000. Her serum sodium is 147, potassium 4, chloride 107, bicarbonate 33, anion gap of 7, BUN 35, creatinine 2.2. Her estimated GFR was 28 mL per minute. Her glucose was ____, calcium was 8.4, magnesium was 2.3. Her total bilirubin, AST, ALT, alkaline phosphatase were normal. Total protein 7, albumin was 2.9. Her urinalysis showed the urine was yellow, clear with a pH of 5.5, specific gravity of 1.010. There was large amount of protein, negative for glucose, ketones, blood, nitrite. There was small amount of leukocyte esterase, 1-2 rbc's, 11-20 wbc's, very few bacteria. Her nasal screen for MRSA by PCR was negative. ASSESSMENT: This is a 52-year-old female patient who was transferred from [facility] with: 1. Altered mental status. 2. Acute hypoxic respiratory failure. 3. Healthcare-associated pneumonia with bilateral lung infiltrate. Other medical problems include type 2 diabetes mellitus, chronic kidney disease stage 3 due to diabetic nephropathy, hyperlipidemia, chronic constipation, hypomagnesemia, gastroparesis and herpes virus infection. Her psychiatric history is significant for schizophrenia, chronic, undifferentiated with borderline personality. PLAN: My plan is to continue with IV antibiotics for healthcare-associated pneumonia. Continue to monitor her blood sugar and adjust insulin as needed. Discontinue the IV fluid and monitor her lab work. I would check also her ammonia level. She says given that she has a very prominent flapping tremor to the extent that she is unsteady when stands up. RISA WICK MD DR: ISABELLA/alicia JOB#: [id number] / [id number]
[2017-12-19] MEDS: IPRATRPIUM/ALBUTEROL 0.5/2.5MG 3 ML NEBU. NEB SCH ×4 (05:40→20:00)
[2017-12-19 05:47] LABS: BASO # 0.1 x10^3/uL (0.0-0.2); BASO % 1 % (0-3); EOS # 0.4 x10^3/uL (0.0-0.7); EOS % 6 % (0-3); HEMATOCRIT 31.8 % (36.0-47.0); HEMOGLOBIN 10.1 g/dL (12.0-15.5); LYMPH # 2.5 x10^3/uL (1.0-4.8); LYMPH % 37 % (24-48); MEAN CORPUSCULAR HEMOGLOBIN 27 pg (25-35); MEAN CORPUSCULAR HGB CONC 32 g/dL (31-37); MEAN CORPUSCULAR VOLUME 86 fL (79-100); MONO # 0.8 x10^3/uL (0.0-1.1); MONO % 12 % (0-9); NEUT # 2.9 x10^3uL (1.8-7.7); NEUT % 44 % (31-73); PLATELET COUNT 202 x10^3/uL (140-400); RED BLOOD COUNT 3.71 x10^6/uL (3.50-5.40); RED CELL DISTRIBUTION WIDTH 16.4 % (11.5-14.5); WHITE BLOOD COUNT 6.7 x10^3/uL (4.0-11.0)
[2017-12-19 05:57] LABS: ALBUMIN 2.8 g/dL (3.4-5.0); ALBUMIN/GLOBULIN RATIO 0.9 (1.0-1.7); CALCIUM 8.5 mg/dL (8.5-10.1); CREATININE 2.1 mg/dL (0.6-1.0); GFR 30.2; POTASSIUM 4.9 mmol/L (3.5-5.1); TOTAL BILIRUBIN 0.2 mg/dL (0.2-1.0)
[2017-12-19] MEDS ORDERED: INSULIN LISPRO 300 UNITS/3 ML INSULN.PEN. SQ SCH (08:00)
[2017-12-19] MEDS: POLYETHYLENE GLYCOL 3350 17 GM PACKET. PO SCH (09:00)
[2017-12-19] MEDS: traZODone 50 MG TABLET. PO SCH ×3 (09:00→17:00)
[2017-12-19] MEDS: MAGNESIUM OXIDE 400 MG TABLET PO SCH (09:55)
[2017-12-19] MEDS: GABAPENTIN 300 MG CAPSULE. PO SCH ×3 (09:55→22:20)
[2017-12-19] MEDS: SENNOSIDES 8.6 MG TABLET PO SCH ×2 (09:56→22:19)
[2017-12-19] MEDS: GEMFIBROZIL 600 MG TABLET. PO SCH ×2 (09:56→17:08)
[2017-12-19] MEDS: ARIPiprazole 10 MG TABLET PO SCH ×2 (09:56→22:19)
[2017-12-19] MEDS: MULTIVITAMIN with MINERAL TABLET. PO SCH (09:56)
[2017-12-19] MEDS: ASPIRIN ENTERIC COATED 81 MG TABLET.DR. PO SCH (09:57)
[2017-12-19] MEDS: PIOGLITAZONE 15 MG TABLET. PO SCH (09:57)
[2017-12-19] MEDS: LISINOPRIL 20 MG TABLET PO SCH (09:57)
[2017-12-19] MEDS: SIMETHICONE 80 MG TAB.CHEW PO SCH ×3 (09:57→22:21)
[2017-12-19] MEDS: FAMOTIDINE 20 MG TABLET PO SCH ×2 (09:57→22:20)
[2017-12-19] MEDS: DOCUSATE SODIUM 100 MG CAPSULE PO SCH (09:58)
[2017-12-19] MEDS: CETIRIZINE HCL 10 MG TABLET PO SCH (09:58)
[2017-12-19] MEDS: FUROSEMIDE 40 MG TABLET PO SCH (09:58)
[2017-12-19] MEDS: POTASSIUM CHLORIDE 10 MEQ TABLET.ER. PO SCH (09:58)
[2017-12-19] MEDS: amLODIPine BESYLATE 10 MG TABLET PO SCH (09:59)
[2017-12-19] MEDS: LACTOBACILLUS RHAMNOSUS GG 1 CAPSULE. PO SCH ×2 (10:00→22:19)
[2017-12-19] MEDS: HALOPERIDOL 5 MG TABLET PO SCH ×2 (10:00→22:19)
[2017-12-19] MEDS: INSULIN LISPRO 300 UNITS/3 ML INSULN.PEN. SQ SCH ×3 (10:05→17:41)
[2017-12-19] MEDS: INSULIN GLARGINE 300 UNITS/3 ML INSULN.PEN. SQ SCH ×2 (10:12→22:22)
--- NOTE | 2017-12-19 11:12 | PDOC ---
PROGRESS NOTES Assessment 1. HCAP: Organism unknown. CXR remarkably improved yesterday. Will repeat today, if stable, will wean off O2 and transition to PO abx. Hopeful for d/c back to [facility] unit by tomorrow. 2. Schizophrenia: Stable, pt continues to request O2 despite normal O2 sats on RA. Refused to complete VQ scan yesterday. Plan to transfer back to [facility]. 3. DM: Continue current insulin dosing. 4. Insomnia: Trazodone per psychiatry. 5. DVT proph: Pt on SCD's only currently, but is non-compliant. Pt high risk for thrombosis. Start SQ heparin. Plan of Care: see other orders Subjective Pt states her feet feel cold. Says warm wash cloths make them better, dry air make them worse. Says they feel cold "all the time." Says her breathing is better. She is hungry, ready for lunch. Denies fever. Says she has no pain or swelling in her legs. Says she still has some dull ache when she coughs. Per staff, pt refused to complete VQ scan yesterday, but ventilation part was normal. Pt denies bleeding or dizziness. Objective Vital Signs Date Time Temp Pulse Resp B/P (MAP) Pulse Ox O2 Delivery O2 Flow Rate FiO2 12/19/17 09:59 70 135/63 12/19/17 07:28 18 100 Nasal Cannula 1.0 12/18/17 19:42 98.5 Intake and Output 12/19/17 07:00 Intake Total 3500 ml Output Total 2850 ml Balance 650 ml Intake Oral 2500 ml IV Total 1000 ml Output Urine Total 2850 ml # Voids 2 Abdomen: Normal bowel sounds, Soft, No tenderness, No hepatospenomegaly, No masses Heart: Regular rate, Normal S1, Normal S2, No murmurs Extremities: No cyanosis, No edema, Normal pulses, No tenderness/swelling General: Alert, Cooperative, No acute distress HEENT: Atraumatic, PERRLA, EOMI, Mucous membr. moist/pink Lungs: Clear to auscultation, Normal air movement Neck: No JVD Neuro: Other (No focal abnormalities) Psych/Mental Status: Other (Baseline per staff) Skin: No rashes Review of Relevant I have reviewed the following items allan (where applicable) has been applied. Labs Laboratory Tests Test 12/17/17 11:05 12/17/17 11:30 12/17/17 11:50 12/17/17 12:05 Nasal Screen MRSA (PCR) Negative (Negative) White Blood Count 9.3 x10^3/uL (4.0-11.0) Red Blood Count 3.87 x10^6/uL (3.50-5.40) Hemoglobin 10.5 g/dL (12.0-15.5) Hematocrit 32.7 % (36.0-47.0) Mean Corpuscular Volume 85 fL (79-100) Mean Corpuscular Hemoglobin 27 pg (25-35) Mean Corpuscular Hemoglobin Concent 32 g/dL (31-37) Red Cell Distribution Width 16.7 % (11.5-14.5) Platelet Count 241 x10^3/uL (140-400) Neutrophils (%) (Auto) 67 % (31-73) Lymphocytes (%) (Auto) 23 % (24-48) Monocytes (%) (Auto) 7 % (0-9) Eosinophils (%) (Auto) 3 % (0-3) Basophils (%) (Auto) 0 % (0-3) Neutrophils # (Auto) 6.2 x10^3uL (1.8-7.7) Lymphocytes # (Auto) 2.1 x10^3/uL (1.0-4.8) Monocytes # (Auto) 0.7 x10^3/uL (0.0-1.1) Eosinophils # (Auto) 0.3 x10^3/uL (0.0-0.7) Basophils # (Auto) 0.0 x10^3/uL (0.0-0.2) Segmented Neutrophils % 68 % (35-66) Band Neutrophils % 2 % (0-9) Lymphocytes % 22 % (24-48) Monocytes % 4 % (0-10) Eosinophils % 4 % (0-5) Toxic Granulation Slight Toxic Vacuolation Slight Dohle Bodies Present Platelet Estimate Adequate (ADEQUATE) Large Platelets Occ Polychromasia Slight Basophilic Stippling Present Anisocytosis Slight Sodium Level 145 mmol/L (136-145) Potassium Level 4.2 mmol/L (3.5-5.1) Chloride Level 103 mmol/L (98-107) Carbon Dioxide Level 35 mmol/L (21-32) Anion Gap 7 (6-14) Blood Urea Nitrogen 48 mg/dL (7-20) Creatinine 3.0 mg/dL (0.6-1.0) Estimated GFR (Cockcroft-Gault) 20.0 BUN/Creatinine Ratio 16 (6-20) Glucose Level 83 mg/dL (70-99) Lactic Acid Level 1.0 mmol/L (0.4-2.0) Calcium Level 8.7 mg/dL (8.5-10.1) Magnesium Level 2.8 mg/dL (1.8-2.4) Total Bilirubin 0.2 mg/dL (0.2-1.0) Aspartate Amino Transf (AST/SGOT) 14 U/L (15-37) Alanine Aminotransferase (ALT/SGPT) 20 U/L (14-59) Alkaline Phosphatase 122 U/L (46-116) Total Protein 7.0 g/dL (6.4-8.2) Albumin 2.9 g/dL (3.4-5.0) Albumin/Globulin Ratio 0.7 (1.0-1.7) Urine Collection Type Unknown Urine Color Yellow Urine Clarity Clear Urine pH 5.5 Urine Specific [place] 1.010 Urine Protein 100 mg/dl (NEG-TRACE) Urine Glucose (UA) Neg mg/dL (NEG) Urine Ketones (Stick) Neg mg/dL (NEG) Urine Blood Neg (NEG) Urine Nitrite Neg (NEG) Urine Bilirubin Neg (NEG) Urine Urobilinogen Dipstick 0.2 mg/dL (0.2 mg/dL) Urine Leukocyte Esterase Small (NEG) Urine RBC 1-2 /HPF (0-2) Urine WBC 11-20 /HPF (0-4) Urine Squamous Epithelial Cells Few /LPF Urine Transitional Epithelial Cells Few /LPF Urine Bacteria Few /HPF (0-FEW) Glucose (Fingerstick) 70 mg/dL (70-99) Test 12/17/17 12:06 12/17/17 16:44 12/17/17 19:11 12/18/17 07:19 Blood Gas pH 7.44 (7.35-7.45) Blood Gas PCO2 55 mmHg (35-45) Blood Gas PO2 83 mmHg (80-100) Blood Gas HCO3 37 mmol/L (22-26) Arterial Bld O2 Saturation (Calc) 96 % (92-99) FiO2 28 % Glucose (Fingerstick) 154 mg/dL (70-99) 256 mg/dL (70-99) White Blood Count 5.4 x10^3/uL (4.0-11.0) Red Blood Count 3.72 x10^6/uL (3.50-5.40) Hemoglobin 10.0 g/dL (12.0-15.5) Hematocrit 31.6 % (36.0-47.0) Mean Corpuscular Volume 85 fL (79-100) Mean Corpuscular Hemoglobin 27 pg (25-35) Mean Corpuscular Hemoglobin Concent 32 g/dL (31-37) Red Cell Distribution Width 16.0 % (11.5-14.5) Platelet Count 222 x10^3/uL (140-400) Neutrophils (%) (Auto) 59 % (31-73) Lymphocytes (%) (Auto) 23 % (24-48) Monocytes (%) (Auto) 12 % (0-9) Eosinophils (%) (Auto) 6 % (0-3) Basophils (%) (Auto) 0 % (0-3) Neutrophils # (Auto) 3.2 x10^3uL (1.8-7.7) Lymphocytes # (Auto) 1.3 x10^3/uL (1.0-4.8) Monocytes # (Auto) 0.7 x10^3/uL (0.0-1.1) Eosinophils # (Auto) 0.3 x10^3/uL (0.0-0.7) Basophils # (Auto) 0.0 x10^3/uL (0.0-0.2) Sodium Level 147 mmol/L (136-145) Potassium Level 4.0 mmol/L (3.5-5.1) Chloride Level 107 mmol/L (98-107) Carbon Dioxide Level 33 mmol/L (21-32) Anion Gap 7 (6-14) Blood Urea Nitrogen 35 mg/dL (7-20) Creatinine 2.2 mg/dL (0.6-1.0) Estimated GFR (Cockcroft-Gault) 28.6 Glucose Level 263 mg/dL (70-99) Calcium Level 8.4 mg/dL (8.5-10.1) Magnesium Level 2.3 mg/dL (1.8-2.4) Test 12/18/17 08:04 12/18/17 11:53 12/18/17 13:04 12/18/17 16:09 Glucose (Fingerstick) 231 mg/dL (70-99) 184 mg/dL (70-99) 248 mg/dL (70-99) Prothrombin Time 9.9 SEC (9.4-11.4) Prothromb Time International Ratio 1.0 (0.9-1.1) Ammonia < 10 mcmol/L (11-34) Test 12/18/17 20:12 12/19/17 05:15 Glucose (Fingerstick) 265 mg/dL (70-99) White Blood Count 6.7 x10^3/uL (4.0-11.0) Red Blood Count 3.71 x10^6/uL (3.50-5.40) Hemoglobin 10.1 g/dL (12.0-15.5) Hematocrit 31.8 % (36.0-47.0) Mean Corpuscular Volume 86 fL (79-100) Mean Corpuscular Hemoglobin 27 pg (25-35) Mean Corpuscular Hemoglobin Concent 32 g/dL (31-37) Red Cell Distribution Width 16.4 % (11.5-14.5) Platelet Count 202 x10^3/uL (140-400) Neutrophils (%) (Auto) 44 % (31-73) Lymphocytes (%) (Auto) 37 % (24-48) Monocytes (%) (Auto) 12 % (0-9) Eosinophils (%) (Auto) 6 % (0-3) Basophils (%) (Auto) 1 % (0-3) Neutrophils # (Auto) 2.9 x10^3uL (1.8-7.7) Lymphocytes # (Auto) 2.5 x10^3/uL (1.0-4.8) Monocytes # (Auto) 0.8 x10^3/uL (0.0-1.1) Eosinophils # (Auto) 0.4 x10^3/uL (0.0-0.7) Basophils # (Auto) 0.1 x10^3/uL (0.0-0.2) Sodium Level 146 mmol/L (136-145) Potassium Level 4.9 mmol/L (3.5-5.1) Chloride Level 107 mmol/L (98-107) Carbon Dioxide Level 31 mmol/L (21-32) Anion Gap 8 (6-14) Blood Urea Nitrogen 29 mg/dL (7-20) Creatinine 2.1 mg/dL (0.6-1.0) Estimated GFR (Cockcroft-Gault) 30.2 BUN/Creatinine Ratio 14 (6-20) Glucose Level 142 mg/dL (70-99) Calcium Level 8.5 mg/dL (8.5-10.1) Total Bilirubin 0.2 mg/dL (0.2-1.0) Aspartate Amino Transf (AST/SGOT) 17 U/L (15-37) Alanine Aminotransferase (ALT/SGPT) 18 U/L (14-59) Alkaline Phosphatase 138 U/L (46-116) Total Protein 6.0 g/dL (6.4-8.2) Albumin 2.8 g/dL (3.4-5.0) Albumin/Globulin Ratio 0.9 (1.0-1.7) Microbiology 12/17/17 Blood Culture - Preliminary, Resulted NO GROWTH AFTER 1 DAY Medications Current Medications Clonidine HCl (Catapres) 0.1 mg HS PO Last administered on 12/18/17at 20:21; Start 12/17/17 at 21:00 Gabapentin (Neurontin) 300 mg TID PO Last administered on 12/19/17at 09:55; Start 12/17/17 at 14:00 Insulin Aspart (NovoLOG) 4 units DAILYWBKFT SQ ; Start 12/18/17 at 08:00; Stop 12/18/17 at 08:31; Status DC Insulin Aspart (NovoLOG) 8 units DAILYBFRLUN SQ ; Start 12/17/17 at 11:30; Stop 12/18/17 at 08:32; Status DC Insulin Aspart (NovoLOG) 10 units DAILYBFRSUP SQ ; Start 12/17/17 at 17:00; Stop 12/18/17 at 08:33; Status DC Lactobacillus Rhamnosus (Culturelle) 1 cap BID PO Last administered on at 10:00; Start 12/17/17 at 21:00 Lisinopril (Prinivil) 20 mg DAILY PO Last administered on 12/19/17at 09:57; Start 12/18/17 at 09:00 Olanzapine (ZyPREXA ZYDIS) 2.5 mg PRN Q2HR PRN PO PSYCHOSIS Last administered on 12/18/17at 17:21; Start 12/17/17 at 11:15 Tramadol HCl (Ultram) 50 mg PRN Q6HRS PRN PO PAIN; Start 12/17/17 at 11:15; Stop 12/17/17 at 11:47; Status DC Acetaminophen (Tylenol) 500 mg PRN Q6HRS PRN PO PAIN / TEMP; Start 12/17/17 at 12:00 Amlodipine Besylate (Norvasc) 10 mg DAILY PO Last administered on 12/19/17 09: 59; Start 12/18/17 at 09:00 Aripiprazole (Abilify) 10 mg BID PO Last administered on 12/19/17 09:56; Start 12/17/17 at 21:00 Aspirin (Aspirin Enteric Coated) 81 mg DAILYWBKFT PO Last administered on 09:57; Start 12/18/17 at 08:00 Cetirizine HCl (ZyrTEC) 10 mg DAILY PO Last administered on 12/19/17 09:58; Start 12/18/17 at 09:00 Clozapine (Clozaril) 75 mg QHS PO Last administered on 12/18/17at 20:20; Start 12/17/17 at 21:00 Divalproex Sodium (Depakote Er) 1,500 mg QHS PO Last administered on 12/18/17at 20:20; Start 12/17/17 at 21:00 Docusate Sodium (Colace) 100 mg DAILY PO Last administered on 12/19/17at 09:58; Start 12/18/17 at 09:00 Docusate Sodium (Colace) 100 mg PRN DAILY PRN PO CONSTIPATION; Start 12/17/17 at 12:00 Famotidine (Pepcid) 20 mg BID PO Last administered on 12/19/17at 09:57; Start at 21:00 Fluticasone Propionate (Flonase) 2 spray PRN DAILY PRN NS ALLERGIES; Start 05/27 at 12:00; Stop 12/17/17 at 12:01; Status DC Fluvoxamine Maleate (Luvox) 50 mg QHS PO Last administered on 12/18/17 20:20; Start 12/17/17 at 21:00 Furosemide (Lasix) 40 mg DAILY PO Last administered on 12/19/17 09:58; Start 12/18/17 at 09:00 Gemfibrozil (Lopid) 600 mg BIDBFRMEAL PO Last administered on 12/19/17 09:56; Start 12/17/17 at 16:30 Haloperidol (Haldol) 15 mg BID PO Last administered on 12/19/17at 10:00; Start 12/17/17 at 21:00 Haloperidol Lactate (Haldol) 5 mg PRN Q4HRS PRN IM PSYCHOSIS Last administered on 12/18/17 17:21; Start 12/17/17 at 12:00 Insulin Glargine (Lantus) 16 units QHS SQ Last administered on 12/18/17 20:23 ; Start 12/17/17 at 21:00 Insulin Glargine (Lantus) 26 units DAILYWBKFT SQ Last administered on 10:12; Start 12/18/17 at 08:00 Non-Formulary Medication (Levofloxacin (Levaquin)) 1 tab DAILY06 PO ; Start 06/27 at 06:00; Status UNV Magnesium Oxide (Magnesium Oxide) 400 mg DAILY PO Last administered on 09:55; Start 12/18/17 at 09:00 Multivitamins/ Calcium (Thera-M Plus) 1 tab DAILY PO Last administered on 09:56; Start 12/18/17 at 09:00 Pioglitazone HCl (Actos) 30 mg DAILY PO Last administered on 12/19/17 09:57; Start 12/18/17 at 09:00 Polyethylene Glycol (miraLAX) 17 gm DAILY PO ; Start 12/18/17 at 09:00 Potassium Chloride (Klor-Con) 10 meq DAILYWBKFT PO Last administered on 09:58; Start 12/18/17 at 08:00 Sennosides (Senna) 8.6 mg BID PO Last administered on 12/19/17 09:56; Start at 21:00 Simethicone (Gas-X) 120 mg TID PO Last administered on 12/19/17at 09:57; Start 12/17/17 at 14:00 Trazodone HCl (Desyrel) 12.5 mg TID@0900,1300,1700 PO Last administered on 12/18at 17:15; Start 12/17/17 at 13:00 Sodium Chloride 1,000 ml @ 100 mls/hr Q10H IV Last administered on 12/18/17at 07:20; Start 12/17/17 at 11:20; Stop 12/18/17 at 12:47; Status DC Ondansetron HCl (Zofran) 4 mg PRN Q8HRS PRN IV NAUSEA/VOMITING; Start 12/17/17 at 11:30 Albuterol/ Ipratropium (Duoneb) 3 ml RTQID NEB Last administered on 12/19/17at 05:40; Start 12/17/17 at 12:00 Meropenem 1 gm/ Sodium Chloride 100 ml @ 200 mls/hr Q12H IV Last administered on 12/18/17at 23:47; Start 12/17/17 at 12:00 Linezolid 300 ml @ 300 mls/hr Q12H IV Last administered on 12/19/17at 00:34; Start 12/17/17 at 13:00 Fluticasone Propionate (Flonase) 2 spray PRN DAILY PRN NS ALLERGIES; Start 05/27 at 12:01 Haloperidol (Haldol) 15 mg 1X ONCE PO Last administered on 12/17/17at 12:22; Start 12/17/17 at 12:15; Stop 12/17/17 at 12:16; Status DC Aripiprazole (Abilify) 10 mg 1X ONCE PO Last administered on 12/17/17at 12:23; Start 12/17/17 at 12:15; Stop 12/17/17 at 12:16; Status DC Insulin Human Lispro (HumaLOG) 4 units DAILYWBKFT SQ ; Start 12/19/17 at 08:00; Status Cancel Insulin Human Lispro (HumaLOG) 8 units DAILYBFRLUN SQ Last administered on 12/18at 12:35; Start 12/18/17 at 11:30 Insulin Human Lispro (HumaLOG) 10 units DAILYBFRSUP SQ Last administered on 06/27at 17:21; Start 12/18/17 at 12:00 Insulin Human Lispro (HumaLOG) 4 units DAILYWBKFT SQ Last administered on at 10:05; Start 12/18/17 at 08:00 Active Scripts Active Reported Trazodone Hcl 50 Mg Tablet 12.5 Mg PO TID@0900,1300,1700 Levaquin (Levofloxacin) 500 Mg Tablet 1 Tab PO DAILY06 Fluvoxamine Maleate 50 Mg Tablet 1 Tab PO QHS Clozaril (Clozapine) 25 Mg Tablet 75 Mg PO QHS Refresh Classic Eye Drops (Polyvinyl Alcohol/Povidone/Pf) 1 Each Droperette 1 Drop OU PRN Q15MIN PRN Miralax (Polyethylene Glycol 3350) 17 Gm Powd.pack 1 Packet PO DAILY Preparation H (Witch Danielle) 1 Each Med..pad 1 Supp GA PRN Q8HRS PRN Analgesic [place] (Methyl Salicylate/Menthol) 28 Gm Oint...g. 1 Gm TP PRN QID PRN Zyprexa Zydis (Olanzapine) 5 Mg Tab.rapdis 2.5 Mg PO PRN Q2HR PRN Depakote Er (Divalproex Sodium) 500 Mg Tab.er.24h 1,500 Tab PO QHS Culturelle (Lactobacillus Rhamnosus Gg) 1 Each Cap.sprink 1 Each PO BID Tramadol Hcl (Tramadol HCl) 50 Mg Tablet 50 Mg PO PRN Q6HRS PRN Multi Vitamin Daily (Multivitamin) 1 Each Tablet 1 Tab PO DAILY Simethicone 125 Mg Capsule 120 Mg PO TID Senna Lax (Sennosides) 8.6 Mg Tablet 8.6 Mg PO BID Potassium Chloride 10 Meq Tablet.er 10 Meq PO DAILY Actos (Pioglitazone Hcl) 30 Mg Tablet 30 Mg PO DAILY Pepcid (Famotidine) 20 Mg Tablet 20 Mg PO BID Novolog Flexpen (Insulin Aspart) 100 Unit/1 Ml Insuln.pen 8 Units SQ DAILYBFRLUN Novolog Flexpen (Insulin Aspart) 100 Unit/1 Ml Insuln.pen 4 Units SQ DAILYWBKFT Novolog Flexpen (Insulin Aspart) 100 Unit/1 Ml Insuln.pen 10 Unit SQ DAILYBFRSUP Mintox Suspension (Mag Hydrox/Al Hydrox/Simeth) 355 Ml Oral.susp 15 Ml PO PRN BID PRN Milk Of Magnesia (Magnesium Hydroxide) 2,400 Mg/10 Ml Oral.susp 2,400 Mg PO PRN DAILY PRN Mapap (Acetaminophen) 500 Mg Tablet 500 Mg PO PRN Q6HRS PRN Magnesium Oxide 400 Mg Tablet 400 Mg PO DAILY Lisinopril 20 Mg Tablet 20 Mg PO DAILY Levemir Flextouch (Insulin Detemir) 100 Unit/1 Ml Insuln.pen 26 Units SQ DAILYWBKFT Levemir Flextouch (Insulin Detemir) 100 Unit/1 Ml Insuln.pen 16 Units SQ HS Lasix (Furosemide) 40 Mg Tablet 40 Mg PO DAILY Haloperidol 10 Mg Tablet 15 Mg PO BID Haloperidol Lactate 5 Mg/1 Ml Vial 5 Mg IM PRN Q4HRS PRN Glucagen (Glucagon,Human Recombinant) 1 Mg/1 Ml Vial 1 Mg SQ PRN PRN Gemfibrozil 600 Mg Tablet 600 Mg PO BID Gabapentin 300 Mg Capsule 300 Mg PO TID Flonase Allergy Relief (Fluticasone Propionate) 9.9 Ml [place].susp 2 Sprays NS PRN PRN Docusate Sodium 100 Mg Capsule 100 Mg PO DAILY Docusate Sodium 100 Mg Capsule 100 Mg PO PRN DAILY PRN Clonidine Hcl 0.1 Mg Tablet 0.1 Mg PO HS Cetirizine Hcl 10 Mg Tablet 10 Mg PO DAILY Aspirin Ec (Aspirin) 81 Mg Tablet.dr 81 Mg PO DAILY Amlodipine Besylate 10 Mg Tablet 10 Mg PO DAILY Abilify (Aripiprazole) 15 Mg Tablet 10 Mg PO BID Vitals/I & O Vital Sign - Last 24 Hours 12/18/17 12/18/17 12/18/17 12/18/17 11:32 12:00 12:04 13:13 Pulse 101 95 Resp 20 20 B/P (MAP) 165/69 (101) 161/71 (101) Pulse Ox 98 95 97 O2 Delivery Nasal Cannula Nasal Cannula Nasal Cannula Nasal Cannula O2 Flow Rate 2.0 2.0 2.0 2.0 12/18/17 12/18/17 12/18/17 12/18/17 14:00 15:00 16:00 16:14 Pulse 99 95 Resp 20 20 B/P (MAP) 133/57 (82) 177/69 (105) Pulse Ox 96 97 97 O2 Delivery Nasal Cannula Nasal Cannula Nasal Cannula Nasal Cannula O2 Flow Rate 2.0 2.0 2.0 2.0 12/18/17 12/18/17 12/18/17 12/18/17 18:00 19:30 19:42 20:21 Temp 98.5 Pulse 107 97 97 Resp 18 B/P (MAP) 171/72 (105) 128/101 (110) 128/101 Pulse Ox 97 99 O2 Delivery Nasal Cannula Nasal Cannula Room Air O2 Flow Rate 2.0 2.0 12/18/17 12/18/17 12/18/17 12/18/17 20:25 21:00 22:00 23:00 Pulse 83 88 82 Resp 18 B/P (MAP) 100/55 (70) 141/64 (89) 106/58 (74) Pulse Ox 99 99 97 98 O2 Delivery Nasal Cannula Nasal Cannula Nasal Cannula Nasal Cannula O2 Flow Rate 2.0 2.0 2.0 2.0 12/18/17 12/19/17 12/19/17 12/19/17 23:58 00:01 02:00 03:00 Pulse 84 78 74 Resp 18 18 16 B/P (MAP) 112/50 (70) 102/54 (70) 92/58 (69) Pulse Ox 96 99 97 O2 Delivery Nasal Cannula Nasal Cannula Nasal Cannula Nasal Cannula O2 Flow Rate 2.0 2.0 2.0 2.0 12/19/17 12/19/17 12/19/17 12/19/17 03:48 04:00 05:00 05:25 Pulse 86 94 Resp 16 20 B/P (MAP) 110/51 (70) 175/71 (105) Pulse Ox 97 95 98 O2 Delivery Nasal Cannula Nasal Cannula Nasal Cannula Nasal Cannula O2 Flow Rate 2.0 2.0 2.0 2.0 12/19/17 12/19/17 12/19/17 12/19/17 06:00 07:28 09:57 09:59 Pulse 76 70 70 70 Resp 18 18 B/P (MAP) 137/60 (85) 135/63 (87) 135/63 135/63 Pulse Ox 98 100 O2 Delivery Nasal Cannula Nasal Cannula O2 Flow Rate 2.0 1.0 Intake and Output 12/18/17 12/18/17 12/19/17 15:00 23:00 07:00 Intake Total 2500 ml 540 ml 460 ml Output Total 1350 ml 1500 ml Balance 1150 ml -960 ml 460 ml Images PORTABLE CHEST 1V Clinical indications: shortness OF AIR COMPARISON: December 16, 2017. Findings: The previously seen bilateral interstitial pulmonary edema or bronchitis has significantly improved. Mild residual bronchitis or interstitial pulmonary edema is still present. Left lung base is better aerated. No pleural effusion or pneumothorax is seen. The heart size, pulmonary vasculature, mediastinum and both alissa are stable. Impression: Improvement of interstitial pulmonary edema or bronchitis since December 16, 2017. TRA HERRMANN MD December 19, 2017 11:12
[2017-12-19] MEDS: MEROPENEM 1 GM in IV NORMAL SALINE 100ML 100 ML IV SCH (11:28)
[2017-12-19] MEDS: HEPARIN PF for SUB-Q USE 5,000 UNIT/0.5 ML VIAL. SQ SCH ×2 (11:32→22:23)
--- NOTE | 2017-12-19 12:01 | RAD ---
AP chest. HISTORY: Short of air, pneumonia AP view was taken of the chest. The lung base on the left is poorly evaluated. There is minimal hazy atelectasis or infiltrate in the lung bases. Patient's taken a poor inspiration. Upright PA and lateral views of be of benefit for better evaluation. The upper lung zones are clear. IMPRESSION: 1. Mild basilar atelectasis or infiltrate but poorly evaluated. PA and lateral views would be of benefit. Electronically signed by: Deepak Andrade MD (12/19/2017 11:58 AM) [facility]
--- NOTE | 2017-12-19 20:11 | PDOC ---
Exam Note: Tay Note: Please also refer to the separate dictated note~for this date of service dictated separately.~Patient seen individually. Discussed the patient with Nursing staff reviewed the chart.~Reviewed interim history and current functioning. Reviewed vital signs,~Labs/ Radiology~and current medications noted below. Continue current treatment with the changes noted in the dictated addendum noteThis is a late entry for date of service December Assessment: Vital Signs: Vital Signs Date Time Temp Pulse Resp B/P (MAP) Pulse Ox O2 Delivery O2 Flow Rate FiO2 12/19/17 16:58 87 18 153/55 (87) 95 Room Air 12/19/17 11:46 97.8 12/19/17 11:26 1.0 I&O Intake and Output 12/19/17 07:00 Intake Total 3500 ml Output Total 2850 ml Balance 650 ml Intake Oral 2500 ml IV Total 1000 ml Output Urine Total 2850 ml # Voids 2 Labs: Laboratory Tests Test 12/18/17 20:12 12/19/17 05:15 12/19/17 12:19 12/19/17 16:55 Glucose (Fingerstick) 265 mg/dL (70-99) H 189 mg/dL (70-99) H 145 mg/dL (70-99) H White Blood Count 6.7 x10^3/uL (4.0-11.0) Red Blood Count 3.71 x10^6/uL (3.50-5.40) Hemoglobin 10.1 g/dL (12.0-15.5) L Hematocrit 31.8 % (36.0-47.0) L Mean Corpuscular Volume 86 fL (79-100) Mean Corpuscular Hemoglobin 27 pg (25-35) Mean Corpuscular Hemoglobin Concent 32 g/dL (31-37) Red Cell Distribution Width 16.4 % (11.5-14.5) H Platelet Count 202 x10^3/uL (140-400) Neutrophils (%) (Auto) 44 % (31-73) Lymphocytes (%) (Auto) 37 % (24-48) Monocytes (%) (Auto) 12 % (0-9) H Eosinophils (%) (Auto) 6 % (0-3) H Basophils (%) (Auto) 1 % (0-3) Neutrophils # (Auto) 2.9 x10^3uL (1.8-7.7) Lymphocytes # (Auto) 2.5 x10^3/uL (1.0-4.8) Monocytes # (Auto) 0.8 x10^3/uL (0.0-1.1) Eosinophils # (Auto) 0.4 x10^3/uL (0.0-0.7) Basophils # (Auto) 0.1 x10^3/uL (0.0-0.2) Sodium Level 146 mmol/L (136-145) H Potassium Level 4.9 mmol/L (3.5-5.1) Chloride Level 107 mmol/L (98-107) Carbon Dioxide Level 31 mmol/L (21-32) Anion Gap 8 (6-14) Blood Urea Nitrogen 29 mg/dL (7-20) H Creatinine 2.1 mg/dL (0.6-1.0) H Estimated GFR (Cockcroft-Gault) 30.2 BUN/Creatinine Ratio 14 (6-20) Glucose Level 142 mg/dL (70-99) H Calcium Level 8.5 mg/dL (8.5-10.1) Total Bilirubin 0.2 mg/dL (0.2-1.0) Aspartate Amino Transferase (AST) 17 U/L (15-37) Alanine Aminotransferase (ALT) 18 U/L (14-59) Alkaline Phosphatase 138 U/L (46-116) H Total Protein 6.0 g/dL (6.4-8.2) L Albumin 2.8 g/dL (3.4-5.0) L Albumin/Globulin Ratio 0.9 (1.0-1.7) L Current Medications: Meds: Current Medications Clonidine HCl (Catapres) 0.1 mg HS PO Last administered on 12/18/17at 20:21; Start 12/17/17 at 21:00 Gabapentin (Neurontin) 300 mg TID PO Last administered on 12/19/17at 09:55; Start 12/17/17 at 14:00 Insulin Aspart (NovoLOG) 4 units DAILYWBKFT SQ ; Start 12/18/17 at 08:00; Stop 12/18/17 at 08:31; Status DC Insulin Aspart (NovoLOG) 8 units DAILYBFRLUN SQ ; Start 12/17/17 at 11:30; Stop 12/18/17 at 08:32; Status DC Insulin Aspart (NovoLOG) 10 units DAILYBFRSUP SQ ; Start 12/17/17 at 17:00; Stop 12/18/17 at 08:33; Status DC Lactobacillus Rhamnosus (Culturelle) 1 cap BID PO Last administered on at 10:00; Start 12/17/17 at 21:00 Lisinopril (Prinivil) 20 mg DAILY PO Last administered on 12/19/17at 09:57; Start 12/18/17 at 09:00 Olanzapine (ZyPREXA ZYDIS) 2.5 mg PRN Q2HR PRN PO PSYCHOSIS Last administered on 12/18/17 17:21; Start 12/17/17 at 11:15 Tramadol HCl (Ultram) 50 mg PRN Q6HRS PRN PO PAIN; Start 12/17/17 at 11:15; Stop 12/17/17 at 11:47; Status DC Acetaminophen (Tylenol) 500 mg PRN Q6HRS PRN PO PAIN / TEMP; Start 12/17/17 at 12:00 Amlodipine Besylate (Norvasc) 10 mg DAILY PO Last administered on 12/19/17at 09: 59; Start 12/18/17 at 09:00 Aripiprazole (Abilify) 10 mg BID PO Last administered on 12/19/17at 09:56; Start 12/17/17 at 21:00 Aspirin (Aspirin Enteric Coated) 81 mg DAILYWBKFT PO Last administered on at 09:57; Start 12/18/17 at 08:00 Cetirizine HCl (ZyrTEC) 10 mg DAILY PO Last administered on 12/19/17at 09:58; Start 12/18/17 at 09:00 Clozapine (Clozaril) 75 mg QHS PO Last administered on 12/18/17 20:20; Start 12/17/17 at 21:00 Divalproex Sodium (Depakote Er) 1,500 mg QHS PO Last administered on 12/18/17at 20:20; Start 12/17/17 at 21:00 Docusate Sodium (Colace) 100 mg DAILY PO Last administered on 12/19/17at 09:58; Start 12/18/17 at 09:00 Docusate Sodium (Colace) 100 mg PRN DAILY PRN PO CONSTIPATION; Start 12/17/17 at 12:00 Famotidine (Pepcid) 20 mg BID PO Last administered on 12/19/17 09:57; Start at 21:00 Fluticasone Propionate (Flonase) 2 spray PRN DAILY PRN NS ALLERGIES; Start 05/27 at 12:00; Stop 12/17/17 at 12:01; Status DC Fluvoxamine Maleate (Luvox) 50 mg QHS PO Last administered on 12/18/17 20:20; Start 12/17/17 at 21:00 Furosemide (Lasix) 40 mg DAILY PO Last administered on 12/19/17 09:58; Start 12/18/17 at 09:00 Gemfibrozil (Lopid) 600 mg BIDBFRMEAL PO Last administered on 12/19/17 17:08; Start 12/17/17 at 16:30 Haloperidol (Haldol) 15 mg BID PO Last administered on 12/19/17at 10:00; Start 12/17/17 at 21:00 Haloperidol Lactate (Haldol) 5 mg PRN Q4HRS PRN IM PSYCHOSIS Last administered on 12/18/17 17:21; Start 12/17/17 at 12:00 Insulin Glargine (Lantus) 16 units QHS SQ Last administered on 12/18/17at 20:23 ; Start 12/17/17 at 21:00 Insulin Glargine (Lantus) 26 units DAILYWBKFT SQ Last administered on at 10:12; Start 12/18/17 at 08:00 Non-Formulary Medication (Levofloxacin (Levaquin)) 1 tab DAILY06 PO ; Start 06/27 at 06:00; Status UNV Magnesium Oxide (Magnesium Oxide) 400 mg DAILY PO Last administered on 09:55; Start 12/18/17 at 09:00 Multivitamins/ Calcium (Thera-M Plus) 1 tab DAILY PO Last administered on 09:56; Start 12/18/17 at 09:00 Pioglitazone HCl (Actos) 30 mg DAILY PO Last administered on 5/12/18at 09:57; Start 12/18/17 at 09:00 Polyethylene Glycol (miraLAX) 17 gm DAILY PO ; Start 12/18/17 at 09:00 Potassium Chloride (Klor-Con) 10 meq DAILYWBKFT PO Last administered on at 09:58; Start 12/18/17 at 08:00 Sennosides (Senna) 8.6 mg BID PO Last administered on 12/19/17 09:56; Start at 21:00 Simethicone (Gas-X) 120 mg TID PO Last administered on 12/19/17 12:44; Start 12/17/17 at 14:00 Trazodone HCl (Desyrel) 12.5 mg TID@0900,1300,1700 PO Last administered on 12/19at 12:44; Start 12/17/17 at 13:00 Sodium Chloride 1,000 ml @ 100 mls/hr Q10H IV Last administered on 12/18/17at 07:20; Start 12/17/17 at 11:20; Stop 12/18/17 at 12:47; Status DC Ondansetron HCl (Zofran) 4 mg PRN Q8HRS PRN IV NAUSEA/VOMITING; Start 12/17/17 at 11:30 Albuterol/ Ipratropium (Duoneb) 3 ml RTQID NEB Last administered on 12/19/17at 11:14; Start 12/17/17 at 12:00 Meropenem 1 gm/ Sodium Chloride 100 ml @ 200 mls/hr Q12H IV Last administered on 12/19/17 11:28; Start 12/17/17 at 12:00 Linezolid 300 ml @ 300 mls/hr Q12H IV Last administered on 12/19/17 11:28; Start 12/17/17 at 13:00 Fluticasone Propionate (Flonase) 2 spray PRN DAILY PRN NS ALLERGIES; Start 05/27 at 12:01 Haloperidol (Haldol) 15 mg 1X ONCE PO Last administered on 12/17/17at 12:22; Start 12/17/17 at 12:15; Stop 12/17/17 at 12:16; Status DC Aripiprazole (Abilify) 10 mg 1X ONCE PO Last administered on 12/17/17at 12:23; Start 12/17/17 at 12:15; Stop 12/17/17 at 12:16; Status DC Insulin Human Lispro (HumaLOG) 4 units DAILYWBKFT SQ ; Start 12/19/17 at 08:00; Status Cancel Insulin Human Lispro (HumaLOG) 8 units DAILYBFRLUN SQ Last administered on 12/19at 12:44; Start 12/18/17 at 11:30 Insulin Human Lispro (HumaLOG) 10 units DAILYBFRSUP SQ Last administered on 07/27at 17:41; Start 12/18/17 at 12:00 Insulin Human Lispro (HumaLOG) 4 units DAILYWBKFT SQ Last administered on at 10:05; Start 12/18/17 at 08:00 Heparin Sodium (Porcine) (Heparin Sq) 5,000 unit Q12HR SQ Last administered on 12/19/17at 11:32; Start 12/19/17 at 11:15 Active Scripts Active Reported Trazodone Hcl 50 Mg Tablet 12.5 Mg PO TID@0900,1300,1700 Levaquin (Levofloxacin) 500 Mg Tablet 1 Tab PO DAILY06 Fluvoxamine Maleate 50 Mg Tablet 1 Tab PO QHS Clozaril (Clozapine) 25 Mg Tablet 75 Mg PO QHS Refresh Classic Eye Drops (Polyvinyl Alcohol/Povidone/Pf) 1 Each Droperette 1 Drop OU PRN Q15MIN PRN Miralax (Polyethylene Glycol 3350) 17 Gm Powd.pack 1 Packet PO DAILY Preparation H (Ivan Santos) 1 Each Med..pad 1 Supp [place] PRN Q8HRS PRN Analgesic [place] (Methyl Salicylate/Menthol) 28 Gm Oint...g. 1 Gm TP PRN QID PRN Zyprexa Zydis (Olanzapine) 5 Mg Tab.rapdis 2.5 Mg PO PRN Q2HR PRN Depakote Er (Divalproex Sodium) 500 Mg Tab.er.24h 1,500 Tab PO QHS Culturelle (Lactobacillus Rhamnosus Gg) 1 Each Cap.sprink 1 Each PO BID Tramadol Hcl (Tramadol HCl) 50 Mg Tablet 50 Mg PO PRN Q6HRS PRN Multi Vitamin Daily (Multivitamin) 1 Each Tablet 1 Tab PO DAILY Simethicone 125 Mg Capsule 120 Mg PO TID Senna Lax (Sennosides) 8.6 Mg Tablet 8.6 Mg PO BID Potassium Chloride 10 Meq Tablet.er 10 Meq PO DAILY Actos (Pioglitazone Hcl) 30 Mg Tablet 30 Mg PO DAILY Pepcid (Famotidine) 20 Mg Tablet 20 Mg PO BID Novolog Flexpen (Insulin Aspart) 100 Unit/1 Ml Insuln.pen 8 Units SQ DAILYBFRLUN Novolog Flexpen (Insulin Aspart) 100 Unit/1 Ml Insuln.pen 4 Units SQ DAILYWBKFT Novolog Flexpen (Insulin Aspart) 100 Unit/1 Ml Insuln.pen 10 Unit SQ DAILYBFRSUP Mintox Suspension (Mag Hydrox/Al Hydrox/Simeth) 355 Ml Oral.susp 15 Ml PO PRN BID PRN Milk Of Magnesia (Magnesium Hydroxide) 2,400 Mg/10 Ml Oral.susp 2,400 Mg PO PRN DAILY PRN Mapap (Acetaminophen) 500 Mg Tablet 500 Mg PO PRN Q6HRS PRN Magnesium Oxide 400 Mg Tablet 400 Mg PO DAILY Lisinopril 20 Mg Tablet 20 Mg PO DAILY Levemir Flextouch (Insulin Detemir) 100 Unit/1 Ml Insuln.pen 26 Units SQ DAILYWBKFT Levemir Flextouch (Insulin Detemir) 100 Unit/1 Ml Insuln.pen 16 Units SQ HS Lasix (Furosemide) 40 Mg Tablet 40 Mg PO DAILY Haloperidol 10 Mg Tablet 15 Mg PO BID Haloperidol Lactate 5 Mg/1 Ml Vial 5 Mg IM PRN Q4HRS PRN Glucagen (Glucagon,Human Recombinant) 1 Mg/1 Ml Vial 1 Mg SQ PRN PRN Gemfibrozil 600 Mg Tablet 600 Mg PO BID Gabapentin 300 Mg Capsule 300 Mg PO TID Flonase Allergy Relief (Fluticasone Propionate) 9.9 Ml [place].susp 2 Sprays NS PRN PRN Docusate Sodium 100 Mg Capsule 100 Mg PO DAILY Docusate Sodium 100 Mg Capsule 100 Mg PO PRN DAILY PRN Clonidine Hcl 0.1 Mg Tablet 0.1 Mg PO HS Cetirizine Hcl 10 Mg Tablet 10 Mg PO DAILY Aspirin Ec (Aspirin) 81 Mg Tablet.dr 81 Mg PO DAILY Amlodipine Besylate 10 Mg Tablet 10 Mg PO DAILY Abilify (Aripiprazole) 15 Mg Tablet 10 Mg PO BID I have reviewed the current psychotropics carefully including drug interactions. Risk benefit ratio favors no change other than as noted in my dictated progress note. Diagnosis: Problems: (1) Schizophrenia, disorganized, subchronic with acute exacerbation (2) Schizoaffective disorder, chronic condition with acute exacerbation (3) Bipolar affective, mixed, sev w/ psych (4) Anxiety disorder JASS HUNG MD December 19, 2017 20:11
--- NOTE | 2017-12-19 20:14 | PDOC ---
Exam Note: Tay Note: Please also refer to the separate dictated note~for this date of service dictated separately.~Patient seen individually. Discussed the patient with Nursing staff reviewed the chart.~Reviewed interim history and current functioning. Reviewed vital signs,~Labs/ Radiology~and current medications noted below. Continue current treatment with the changes noted in the dictated addendum note Assessment: Vital Signs: Vital Signs Date Time Temp Pulse Resp B/P (MAP) Pulse Ox O2 Delivery O2 Flow Rate FiO2 12/19/17 16:58 87 18 153/55 (87) 95 Room Air 12/19/17 11:46 97.8 12/19/17 11:26 1.0 I&O Intake and Output 12/19/17 07:00 Intake Total 3500 ml Output Total 2850 ml Balance 650 ml Intake Oral 2500 ml IV Total 1000 ml Output Urine Total 2850 ml # Voids 2 Labs: Laboratory Tests Test 12/19/17 05:15 12/19/17 12:19 12/19/17 16:55 White Blood Count 6.7 x10^3/uL (4.0-11.0) Red Blood Count 3.71 x10^6/uL (3.50-5.40) Hemoglobin 10.1 g/dL (12.0-15.5) L Hematocrit 31.8 % (36.0-47.0) L Mean Corpuscular Volume 86 fL (79-100) Mean Corpuscular Hemoglobin 27 pg (25-35) Mean Corpuscular Hemoglobin Concent 32 g/dL (31-37) Red Cell Distribution Width 16.4 % (11.5-14.5) H Platelet Count 202 x10^3/uL (140-400) Neutrophils (%) (Auto) 44 % (31-73) Lymphocytes (%) (Auto) 37 % (24-48) Monocytes (%) (Auto) 12 % (0-9) H Eosinophils (%) (Auto) 6 % (0-3) H Basophils (%) (Auto) 1 % (0-3) Neutrophils # (Auto) 2.9 x10^3uL (1.8-7.7) Lymphocytes # (Auto) 2.5 x10^3/uL (1.0-4.8) Monocytes # (Auto) 0.8 x10^3/uL (0.0-1.1) Eosinophils # (Auto) 0.4 x10^3/uL (0.0-0.7) Basophils # (Auto) 0.1 x10^3/uL (0.0-0.2) Sodium Level 146 mmol/L (136-145) H Potassium Level 4.9 mmol/L (3.5-5.1) Chloride Level 107 mmol/L (98-107) Carbon Dioxide Level 31 mmol/L (21-32) Anion Gap 8 (6-14) Blood Urea Nitrogen 29 mg/dL (7-20) H Creatinine 2.1 mg/dL (0.6-1.0) H Estimated GFR (Cockcroft-Gault) 30.2 BUN/Creatinine Ratio 14 (6-20) Glucose Level 142 mg/dL (70-99) H Calcium Level 8.5 mg/dL (8.5-10.1) Total Bilirubin 0.2 mg/dL (0.2-1.0) Aspartate Amino Transferase (AST) 17 U/L (15-37) Alanine Aminotransferase (ALT) 18 U/L (14-59) Alkaline Phosphatase 138 U/L (46-116) H Total Protein 6.0 g/dL (6.4-8.2) L Albumin 2.8 g/dL (3.4-5.0) L Albumin/Globulin Ratio 0.9 (1.0-1.7) L Glucose (Fingerstick) 189 mg/dL (70-99) H 145 mg/dL (70-99) H Current Medications: Meds: Current Medications Clonidine HCl (Catapres) 0.1 mg HS PO Last administered on 12/18/17at 20:21; Start 12/17/17 at 21:00 Gabapentin (Neurontin) 300 mg TID PO Last administered on 12/19/17at 09:55; Start 12/17/17 at 14:00 Insulin Aspart (NovoLOG) 4 units DAILYWBKFT SQ ; Start 12/18/17 at 08:00; Stop 12/18/17 at 08:31; Status DC Insulin Aspart (NovoLOG) 8 units DAILYBFRLUN SQ ; Start 12/17/17 at 11:30; Stop 12/18/17 at 08:32; Status DC Insulin Aspart (NovoLOG) 10 units DAILYBFRSUP SQ ; Start 12/17/17 at 17:00; Stop 12/18/17 at 08:33; Status DC Lactobacillus Rhamnosus (Culturelle) 1 cap BID PO Last administered on at 10:00; Start 12/17/17 at 21:00 Lisinopril (Prinivil) 20 mg DAILY PO Last administered on 12/19/17at 09:57; Start 12/18/17 at 09:00 Olanzapine (ZyPREXA ZYDIS) 2.5 mg PRN Q2HR PRN PO PSYCHOSIS Last administered on 12/18/17at 17:21; Start 12/17/17 at 11:15 Tramadol HCl (Ultram) 50 mg PRN Q6HRS PRN PO PAIN; Start 12/17/17 at 11:15; Stop 12/17/17 at 11:47; Status DC Acetaminophen (Tylenol) 500 mg PRN Q6HRS PRN PO PAIN / TEMP; Start 12/17/17 at 12:00 Amlodipine Besylate (Norvasc) 10 mg DAILY PO Last administered on 12/19/17at 09: 59; Start 12/18/17 at 09:00 Aripiprazole (Abilify) 10 mg BID PO Last administered on 12/19/17 09:56; Start 12/17/17 at 21:00 Aspirin (Aspirin Enteric Coated) 81 mg DAILYWBKFT PO Last administered on at 09:57; Start 12/18/17 at 08:00 Cetirizine HCl (ZyrTEC) 10 mg DAILY PO Last administered on 12/19/17at 09:58; Start 12/18/17 at 09:00 Clozapine (Clozaril) 75 mg QHS PO Last administered on 12/18/17at 20:20; Start 12/17/17 at 21:00 Divalproex Sodium (Depakote Er) 1,500 mg QHS PO Last administered on 12/18/17 20:20; Start 12/17/17 at 21:00 Docusate Sodium (Colace) 100 mg DAILY PO Last administered on 12/19/17at 09:58; Start 12/18/17 at 09:00 Docusate Sodium (Colace) 100 mg PRN DAILY PRN PO CONSTIPATION; Start 12/17/17 at 12:00 Famotidine (Pepcid) 20 mg BID PO Last administered on 12/19/17 09:57; Start at 21:00 Fluticasone Propionate (Flonase) 2 spray PRN DAILY PRN NS ALLERGIES; Start 05/27 at 12:00; Stop 12/17/17 at 12:01; Status DC Fluvoxamine Maleate (Luvox) 50 mg QHS PO Last administered on 12/18/17at 20:20; Start 12/17/17 at 21:00 Furosemide (Lasix) 40 mg DAILY PO Last administered on 12/19/17 09:58; Start 12/18/17 at 09:00 Gemfibrozil (Lopid) 600 mg BIDBFRMEAL PO Last administered on 12/19/17 17:08; Start 12/17/17 at 16:30 Haloperidol (Haldol) 15 mg BID PO Last administered on 12/19/17at 10:00; Start 12/17/17 at 21:00 Haloperidol Lactate (Haldol) 5 mg PRN Q4HRS PRN IM PSYCHOSIS Last administered on 12/18/17at 17:21; Start 12/17/17 at 12:00 Insulin Glargine (Lantus) 16 units QHS SQ Last administered on 12/18/17at 20:23 ; Start 12/17/17 at 21:00 Insulin Glargine (Lantus) 26 units DAILYWBKFT SQ Last administered on at 10:12; Start 12/18/17 at 08:00 Non-Formulary Medication (Levofloxacin (Levaquin)) 1 tab DAILY06 PO ; Start 06/27 at 06:00; Status UNV Magnesium Oxide (Magnesium Oxide) 400 mg DAILY PO Last administered on at 09:55; Start 12/18/17 at 09:00 Multivitamins/ Calcium (Thera-M Plus) 1 tab DAILY PO Last administered on 09:56; Start 12/18/17 at 09:00 Pioglitazone HCl (Actos) 30 mg DAILY PO Last administered on 12/19/17 09:57; Start 12/18/17 at 09:00 Polyethylene Glycol (miraLAX) 17 gm DAILY PO ; Start 12/18/17 at 09:00 Potassium Chloride (Klor-Con) 10 meq DAILYWBKFT PO Last administered on 09:58; Start 12/18/17 at 08:00 Sennosides (Senna) 8.6 mg BID PO Last administered on 12/19/17at 09:56; Start at 21:00 Simethicone (Gas-X) 120 mg TID PO Last administered on 12/19/17at 12:44; Start 12/17/17 at 14:00 Trazodone HCl (Desyrel) 12.5 mg TID@0900,1300,1700 PO Last administered on 12/19 12:44; Start 12/17/17 at 13:00 Sodium Chloride 1,000 ml @ 100 mls/hr Q10H IV Last administered on 12/18/17at 07:20; Start 12/17/17 at 11:20; Stop 12/18/17 at 12:47; Status DC Ondansetron HCl (Zofran) 4 mg PRN Q8HRS PRN IV NAUSEA/VOMITING; Start 12/17/17 at 11:30 Albuterol/ Ipratropium (Duoneb) 3 ml RTQID NEB Last administered on 12/19/17 11:14; Start 12/17/17 at 12:00 Meropenem 1 gm/ Sodium Chloride 100 ml @ 200 mls/hr Q12H IV Last administered on 12/19/17 11:28; Start 12/17/17 at 12:00 Linezolid 300 ml @ 300 mls/hr Q12H IV Last administered on 12/19/17 11:28; Start 12/17/17 at 13:00 Fluticasone Propionate (Flonase) 2 spray PRN DAILY PRN NS ALLERGIES; Start 05/27 at 12:01 Haloperidol (Haldol) 15 mg 1X ONCE PO Last administered on 12/17/17at 12:22; Start 12/17/17 at 12:15; Stop 12/17/17 at 12:16; Status DC Aripiprazole (Abilify) 10 mg 1X ONCE PO Last administered on 12/17/17at 12:23; Start 12/17/17 at 12:15; Stop 5/10/18 at 12:16; Status DC Insulin Human Lispro (HumaLOG) 4 units DAILYWBKFT SQ ; Start 12/19/17 at 08:00; Status Cancel Insulin Human Lispro (HumaLOG) 8 units DAILYBFRLUN SQ Last administered on 12/19at 12:44; Start 12/18/17 at 11:30 Insulin Human Lispro (HumaLOG) 10 units DAILYBFRSUP SQ Last administered on 07/27at 17:41; Start 12/18/17 at 12:00 Insulin Human Lispro (HumaLOG) 4 units DAILYWBKFT SQ Last administered on at 10:05; Start 12/18/17 at 08:00 Heparin Sodium (Porcine) (Heparin Sq) 5,000 unit Q12HR SQ Last administered on 12/19/17at 11:32; Start 12/19/17 at 11:15 Active Scripts Active Reported Trazodone Hcl 50 Mg Tablet 12.5 Mg PO TID@0900,1300,1700 Levaquin (Levofloxacin) 500 Mg Tablet 1 Tab PO DAILY06 Fluvoxamine Maleate 50 Mg Tablet 1 Tab PO QHS Clozaril (Clozapine) 25 Mg Tablet 75 Mg PO QHS Refresh Classic Eye Drops (Polyvinyl Alcohol/Povidone/Pf) 1 Each Droperette 1 Drop OU PRN Q15MIN PRN Miralax (Polyethylene Glycol 3350) 17 Gm Powd.pack 1 Packet PO DAILY Preparation H (Cjch Danielle) 1 Each Med..pad 1 Supp [place] PRN Q8HRS PRN Analgesic [place] (Methyl Salicylate/Menthol) 28 Gm Oint...g. 1 Gm TP PRN QID PRN Zyprexa Zydis (Olanzapine) 5 Mg Tab.rapdis 2.5 Mg PO PRN Q2HR PRN Depakote Er (Divalproex Sodium) 500 Mg Tab.er.24h 1,500 Tab PO QHS Culturelle (Lactobacillus Rhamnosus Gg) 1 Each Cap.sprink 1 Each PO BID Tramadol Hcl (Tramadol HCl) 50 Mg Tablet 50 Mg PO PRN Q6HRS PRN Multi Vitamin Daily (Multivitamin) 1 Each Tablet 1 Tab PO DAILY Simethicone 125 Mg Capsule 120 Mg PO TID Senna Lax (Sennosides) 8.6 Mg Tablet 8.6 Mg PO BID Potassium Chloride 10 Meq Tablet.er 10 Meq PO DAILY Actos (Pioglitazone Hcl) 30 Mg Tablet 30 Mg PO DAILY Pepcid (Famotidine) 20 Mg Tablet 20 Mg PO BID Novolog Flexpen (Insulin Aspart) 100 Unit/1 Ml Insuln.pen 8 Units SQ DAILYBFRLUN Novolog Flexpen (Insulin Aspart) 100 Unit/1 Ml Insuln.pen 4 Units SQ DAILYWBKFT Novolog Flexpen (Insulin Aspart) 100 Unit/1 Ml Insuln.pen 10 Unit SQ DAILYBFRSUP Mintox Suspension (Mag Hydrox/Al Hydrox/Simeth) 355 Ml Oral.susp 15 Ml PO PRN BID PRN Milk Of Magnesia (Magnesium Hydroxide) 2,400 Mg/10 Ml Oral.susp 2,400 Mg PO PRN DAILY PRN Mapap (Acetaminophen) 500 Mg Tablet 500 Mg PO PRN Q6HRS PRN Magnesium Oxide 400 Mg Tablet 400 Mg PO DAILY Lisinopril 20 Mg Tablet 20 Mg PO DAILY Levemir Flextouch (Insulin Detemir) 100 Unit/1 Ml Insuln.pen 26 Units SQ DAILYWBKFT Levemir Flextouch (Insulin Detemir) 100 Unit/1 Ml Insuln.pen 16 Units SQ HS Lasix (Furosemide) 40 Mg Tablet 40 Mg PO DAILY Haloperidol 10 Mg Tablet 15 Mg PO BID Haloperidol Lactate 5 Mg/1 Ml Vial 5 Mg IM PRN Q4HRS PRN Glucagen (Glucagon,Human Recombinant) 1 Mg/1 Ml Vial 1 Mg SQ PRN PRN Gemfibrozil 600 Mg Tablet 600 Mg PO BID Gabapentin 300 Mg Capsule 300 Mg PO TID Flonase Allergy Relief (Fluticasone Propionate) 9.9 Ml [place].susp 2 Sprays NS PRN PRN Docusate Sodium 100 Mg Capsule 100 Mg PO DAILY Docusate Sodium 100 Mg Capsule 100 Mg PO PRN DAILY PRN Clonidine Hcl 0.1 Mg Tablet 0.1 Mg PO HS Cetirizine Hcl 10 Mg Tablet 10 Mg PO DAILY Aspirin Ec (Aspirin) 81 Mg Tablet.dr 81 Mg PO DAILY Amlodipine Besylate 10 Mg Tablet 10 Mg PO DAILY Abilify (Aripiprazole) 15 Mg Tablet 10 Mg PO BID I have reviewed the current psychotropics carefully including drug interactions. Risk benefit ratio favors no change other than as noted in my dictated progress note. Diagnosis: Problems: (1) Schizophrenia, disorganized, subchronic with acute exacerbation (2) Schizoaffective disorder, chronic condition with acute exacerbation (3) Bipolar affective, mixed, sev w/ psych (4) Anxiety disorder JASS HUNG MD December 19, 2017 20:14
[2017-12-19] MEDS: DIVALPROEX ER 500 MG TAB.ER.24H PO SCH (22:19)
[2017-12-19] MEDS: cloZAPine 25 MG TABLET PO SCH (22:19)
[2017-12-19] MEDS: cloNIDine HCL 0.1 MG TABLET PO SCH (22:20)
[2017-12-20] VITALS: BP 141/56
[2017-12-20] MEDS: MEROPENEM 1 GM in IV NORMAL SALINE 100ML 100 ML IV SCH ×2 (01:07→11:46)
[2017-12-20 04:00] VITALS: BP 126/57
[2017-12-20] MEDS: IPRATRPIUM/ALBUTEROL 0.5/2.5MG 3 ML NEBU. NEB SCH ×4 (05:44→20:19)
[2017-12-20 06:01] LABS: ALBUMIN 2.6 g/dL (3.4-5.0); ALBUMIN/GLOBULIN RATIO 0.7 (1.0-1.7); CALCIUM 8.6 mg/dL (8.5-10.1); CREATININE 2.3 mg/dL (0.6-1.0); GFR 27.2; POTASSIUM 4.3 mmol/L (3.5-5.1); TOTAL BILIRUBIN 0.2 mg/dL (0.2-1.0); TOTAL PROTEIN 6.3 g/dL (6.4-8.2)
--- NOTE | 2017-12-20 07:34 | PN ---
DATE: 12/18/2017 PSYCHIATRIC PROGRESS NOTE This is a late entry of 12/18/2017 covers elements not covered in my initial note of 12/18/2017. SUBJECTIVE: The patient was transferred from the [facility] to ICU bed [address] Bishop on account of hospital-acquired pneumonia. I have been asked to consult on her since she remains psychotic, actively hallucinating, believes she is having a baby, at times holding a baby yelling and screaming. Per nursing report, the patient has been quite erratic, labile, psychotic, and confused. MENTAL STATUS EXAM: The patient was seen in her room. She is oriented to herself, believes she is , having a baby, actively hallucinating, talking to someone when no one was around her. Insight, judgment, recent memory is impaired. No active suicidal or homicidal ideation. LABORATORY DATA: Reviewed. IMPRESSION: Unchanged from initial note. PLAN: Continue current psychotropics and we will increase the Zyprexa p.r.n. to ____ 5 mg q. 2 hours p.r.n. psychosis, agitation, max 20 mg in 24 hours. MAN Prosper HUNG MD DR: KATIANA/alicia JOB#: [id number] / [id number]
[2017-12-20] MEDS: PIOGLITAZONE 15 MG TABLET. PO SCH (07:53)
[2017-12-20] MEDS: POTASSIUM CHLORIDE 10 MEQ TABLET.ER. PO SCH (07:53)
[2017-12-20] MEDS: ARIPiprazole 10 MG TABLET PO SCH ×2 (07:53→21:13)
[2017-12-20] MEDS: DOCUSATE SODIUM 100 MG CAPSULE PO SCH (07:54)
[2017-12-20] MEDS: LACTOBACILLUS RHAMNOSUS GG 1 CAPSULE. PO SCH ×2 (07:54→21:13)
[2017-12-20] MEDS: FUROSEMIDE 40 MG TABLET PO SCH (07:54)
[2017-12-20] MEDS: ASPIRIN ENTERIC COATED 81 MG TABLET.DR. PO SCH (07:54)
[2017-12-20] MEDS: SIMETHICONE 80 MG TAB.CHEW PO SCH ×3 (07:54→21:13)
[2017-12-20] MEDS: amLODIPine BESYLATE 10 MG TABLET PO SCH (07:54)
[2017-12-20] MEDS: GABAPENTIN 300 MG CAPSULE. PO SCH ×3 (07:54→21:13)
[2017-12-20] MEDS: FAMOTIDINE 20 MG TABLET PO SCH ×2 (07:55→21:13)
[2017-12-20] MEDS: GEMFIBROZIL 600 MG TABLET. PO SCH ×2 (07:55→17:37)
[2017-12-20] MEDS: traZODone 50 MG TABLET. PO SCH ×3 (07:55→17:37)
[2017-12-20] MEDS: MAGNESIUM OXIDE 400 MG TABLET PO SCH (07:55)
[2017-12-20] MEDS: HALOPERIDOL 5 MG TABLET PO SCH ×2 (07:55→21:13)
[2017-12-20] MEDS: MULTIVITAMIN with MINERAL TABLET. PO SCH (07:55)
[2017-12-20] MEDS: SENNOSIDES 8.6 MG TABLET PO SCH ×2 (07:55→21:12)
[2017-12-20] MEDS: CETIRIZINE HCL 10 MG TABLET PO SCH (07:55)
[2017-12-20] MEDS: LISINOPRIL 20 MG TABLET PO SCH (07:55)
[2017-12-20] MEDS: POLYETHYLENE GLYCOL 3350 17 GM PACKET. PO SCH (07:56)
[2017-12-20] MEDS: HEPARIN PF for SUB-Q USE 5,000 UNIT/0.5 ML VIAL. SQ SCH ×2 (07:59→21:16)
[2017-12-20] MEDS: INSULIN LISPRO 300 UNITS/3 ML INSULN.PEN. SQ SCH ×3 (07:59→17:00)
[2017-12-20] MEDS: INSULIN GLARGINE 300 UNITS/3 ML INSULN.PEN. SQ SCH ×2 (08:00→21:16)
[2017-12-20 08:39] VITALS: BP 145/65
[2017-12-20 12:02] VITALS: BP 136/61
--- NOTE | 2017-12-20 13:55 | PDOC ---
PROGRESS NOTES Assessment 1. HCAP: Organism unknown. CXR to be repeated PA/lat today to better evaluate retrocardiac. Pt off O2. 2. Schizophrenia: Stable, pt continues to request O2 despite normal O2 sats on RA. Refused to complete VQ scan. Plan to transfer back to [facility] unit [facility]. 3. DM: Continue current insulin dosing. 4. Insomnia: Trazodone per psychiatry. 5. DVT proph: Pt on SCD's only currently, but is non-compliant. Pt high risk for thrombosis. Start SQ heparin. Plan of Care: see other orders Subjective Pt seen on round and d/w nursing staff. Pt off O2. Pt more alert today, still w/ barky cough. No fevers, no diarrhea, no n/v. Eating well. No bleeding or bruising. Continues to have some symptoms of psychosis. Objective Vital Signs Date Time Temp Pulse Resp B/P (MAP) Pulse Ox O2 Delivery O2 Flow Rate FiO2 12/20/17 12:02 87 16 136/61 (86) 98 Room Air 12/20/17 08:39 98.4 12/20/17 08:00 2.0 Intake and Output 12/20/17 07:00 Intake Total 2020 ml Balance 2020 ml Intake Oral 1620 ml IV Total 400 ml # Voids 3 Abdomen: Soft, No tenderness, No hepatospenomegaly, No masses Heart: Regular rate, Normal S1, Normal S2, No murmurs Extremities: No edema, Normal pulses, No tenderness/swelling General: Alert, Cooperative, No acute distress HEENT: Atraumatic, PERRLA, EOMI, Mucous membr. moist/pink Lungs: Other (Coarse BS bilat bases, resp effort non-labored) Neck: No JVD, No LAD Neuro: Normal speech, Strength at 5/5 X4 ext, Normal tone, Cranial nerves 3-12 NL Psych/Mental Status: Other (Confused) Skin: No rashes Review of Relevant I have reviewed the following items allan (where applicable) has been applied. Labs Laboratory Tests Test 12/18/17 16:09 12/18/17 20:12 12/19/17 05:15 12/19/17 12:19 Glucose (Fingerstick) 248 mg/dL (70-99) 265 mg/dL (70-99) 189 mg/dL (70-99) White Blood Count 6.7 x10^3/uL (4.0-11.0) Red Blood Count 3.71 x10^6/uL (3.50-5.40) Hemoglobin 10.1 g/dL (12.0-15.5) Hematocrit 31.8 % (36.0-47.0) Mean Corpuscular Volume 86 fL (79-100) Mean Corpuscular Hemoglobin 27 pg (25-35) Mean Corpuscular Hemoglobin Concent 32 g/dL (31-37) Red Cell Distribution Width 16.4 % (11.5-14.5) Platelet Count 202 x10^3/uL (140-400) Neutrophils (%) (Auto) 44 % (31-73) Lymphocytes (%) (Auto) 37 % (24-48) Monocytes (%) (Auto) 12 % (0-9) Eosinophils (%) (Auto) 6 % (0-3) Basophils (%) (Auto) 1 % (0-3) Neutrophils # (Auto) 2.9 x10^3uL (1.8-7.7) Lymphocytes # (Auto) 2.5 x10^3/uL (1.0-4.8) Monocytes # (Auto) 0.8 x10^3/uL (0.0-1.1) Eosinophils # (Auto) 0.4 x10^3/uL (0.0-0.7) Basophils # (Auto) 0.1 x10^3/uL (0.0-0.2) Sodium Level 146 mmol/L (136-145) Potassium Level 4.9 mmol/L (3.5-5.1) Chloride Level 107 mmol/L (98-107) Carbon Dioxide Level 31 mmol/L (21-32) Anion Gap 8 (6-14) Blood Urea Nitrogen 29 mg/dL (7-20) Creatinine 2.1 mg/dL (0.6-1.0) Estimated GFR (Cockcroft-Gault) 30.2 BUN/Creatinine Ratio 14 (6-20) Glucose Level 142 mg/dL (70-99) Calcium Level 8.5 mg/dL (8.5-10.1) Total Bilirubin 0.2 mg/dL (0.2-1.0) Aspartate Amino Transf (AST/SGOT) 17 U/L (15-37) Alanine Aminotransferase (ALT/SGPT) 18 U/L (14-59) Alkaline Phosphatase 138 U/L (46-116) Total Protein 6.0 g/dL (6.4-8.2) Albumin 2.8 g/dL (3.4-5.0) Albumin/Globulin Ratio 0.9 (1.0-1.7) Test 12/19/17 16:55 12/19/17 21:47 12/20/17 05:06 12/20/17 08:03 Glucose (Fingerstick) 145 mg/dL (70-99) 185 mg/dL (70-99) 111 mg/dL (70-99) Sodium Level 145 mmol/L (136-145) Potassium Level 4.3 mmol/L (3.5-5.1) Chloride Level 104 mmol/L (98-107) Carbon Dioxide Level 34 mmol/L (21-32) Anion Gap 7 (6-14) Blood Urea Nitrogen 29 mg/dL (7-20) Creatinine 2.3 mg/dL (0.6-1.0) Estimated GFR (Cockcroft-Gault) 27.2 BUN/Creatinine Ratio 13 (6-20) Glucose Level 118 mg/dL (70-99) Calcium Level 8.6 mg/dL (8.5-10.1) Total Bilirubin 0.2 mg/dL (0.2-1.0) Aspartate Amino Transf (AST/SGOT) 17 U/L (15-37) Alanine Aminotransferase (ALT/SGPT) 18 U/L (14-59) Alkaline Phosphatase 121 U/L (46-116) Total Protein 6.3 g/dL (6.4-8.2) Albumin 2.6 g/dL (3.4-5.0) Albumin/Globulin Ratio 0.7 (1.0-1.7) Test 12/20/17 11:31 Glucose (Fingerstick) 212 mg/dL (70-99) Microbiology 12/17/17 Blood Culture - Preliminary, Resulted NO GROWTH AFTER 3 DAYS 12/17/17 Urine Culture - Final, Complete 12/17/17 Urine Culture Result 1 (SHIRA) - Final, Complete Medications Current Medications Clonidine HCl (Catapres) 0.1 mg HS PO Last administered on 12/19/17at 22:20; Start 12/17/17 at 21:00 Gabapentin (Neurontin) 300 mg TID PO Last administered on 12/20/17at 11:46; Start 12/17/17 at 14:00 Insulin Aspart (NovoLOG) 4 units DAILYWBKFT SQ ; Start 12/18/17 at 08:00; Stop 12/18/17 at 08:31; Status DC Insulin Aspart (NovoLOG) 8 units DAILYBFRLUN SQ ; Start 12/17/17 at 11:30; Stop 12/18/17 at 08:32; Status DC Insulin Aspart (NovoLOG) 10 units DAILYBFRSUP SQ ; Start 12/17/17 at 17:00; Stop 12/18/17 at 08:33; Status DC Lactobacillus Rhamnosus (Culturelle) 1 cap BID PO Last administered on at 07:54; Start 12/17/17 at 21:00 Lisinopril (Prinivil) 20 mg DAILY PO Last administered on 12/20/17at 07:55; Start 12/18/17 at 09:00 Olanzapine (ZyPREXA ZYDIS) 2.5 mg PRN Q2HR PRN PO PSYCHOSIS Last administered on 12/18/17at 17:21; Start 12/17/17 at 11:15; Stop 12/19/17 at 20:14; Status DC Tramadol HCl (Ultram) 50 mg PRN Q6HRS PRN PO PAIN; Start 12/17/17 at 11:15; Stop 12/17/17 at 11:47; Status DC Acetaminophen (Tylenol) 500 mg PRN Q6HRS PRN PO PAIN / TEMP; Start 12/17/17 at 12:00 Amlodipine Besylate (Norvasc) 10 mg DAILY PO Last administered on 12/20/17at 07: 54; Start 12/18/17 at 09:00 Aripiprazole (Abilify) 10 mg BID PO Last administered on 12/20/17at 07:53; Start 12/17/17 at 21:00 Aspirin (Aspirin Enteric Coated) 81 mg DAILYWBKFT PO Last administered on at 07:54; Start 12/18/17 at 08:00 Cetirizine HCl (ZyrTEC) 10 mg DAILY PO Last administered on 12/20/17at 07:55; Start 12/18/17 at 09:00 Clozapine (Clozaril) 75 mg QHS PO Last administered on 12/19/17 22:19; Start 12/17/17 at 21:00 Divalproex Sodium (Depakote Er) 1,500 mg QHS PO Last administered on 12/19/17 22:19; Start 12/17/17 at 21:00 Docusate Sodium (Colace) 100 mg DAILY PO Last administered on 12/20/17at 07:54; Start 12/18/17 at 09:00 Docusate Sodium (Colace) 100 mg PRN DAILY PRN PO CONSTIPATION; Start 12/17/17 at 12:00 Famotidine (Pepcid) 20 mg BID PO Last administered on 12/20/17 07:55; Start at 21:00 Fluticasone Propionate (Flonase) 2 spray PRN DAILY PRN NS ALLERGIES; Start 05/27 at 12:00; Stop 12/17/17 at 12:01; Status DC Fluvoxamine Maleate (Luvox) 50 mg QHS PO Last administered on 12/19/17 22:21; Start 12/17/17 at 21:00 Furosemide (Lasix) 40 mg DAILY PO Last administered on 12/20/17 07:54; Start 12/18/17 at 09:00 Gemfibrozil (Lopid) 600 mg BIDBFRMEAL PO Last administered on 12/20/17 07:55; Start 12/17/17 at 16:30 Haloperidol (Haldol) 15 mg BID PO Last administered on 12/20/17 07:55; Start 12/17/17 at 21:00 Haloperidol Lactate (Haldol) 5 mg PRN Q4HRS PRN IM PSYCHOSIS Last administered on 12/18/17 17:21; Start 12/17/17 at 12:00 Insulin Glargine (Lantus) 16 units QHS SQ Last administered on 12/19/17 22:22 ; Start 12/17/17 at 21:00 Insulin Glargine (Lantus) 26 units DAILYWBKFT SQ Last administered on at 08:00; Start 12/18/17 at 08:00 Non-Formulary Medication (Levofloxacin (Levaquin)) 1 tab DAILY06 PO ; Start 06/27 at 06:00; Status UNV Magnesium Oxide (Magnesium Oxide) 400 mg DAILY PO Last administered on 07:55; Start 12/18/17 at 09:00 Multivitamins/ Calcium (Thera-M Plus) 1 tab DAILY PO Last administered on 07:55; Start 12/18/17 at 09:00 Pioglitazone HCl (Actos) 30 mg DAILY PO Last administered on 12/20/17 07:53; Start 12/18/17 at 09:00 Polyethylene Glycol (miraLAX) 17 gm DAILY PO Last administered on 12/20/17 07: 56; Start 12/18/17 at 09:00 Potassium Chloride (Klor-Con) 10 meq DAILYWBKFT PO Last administered on 07:53; Start 12/18/17 at 08:00 Sennosides (Senna) 8.6 mg BID PO Last administered on 12/20/17 07:55; Start at 21:00 Simethicone (Gas-X) 120 mg TID PO Last administered on 12/20/17 11:46; Start 12/17/17 at 14:00 Trazodone HCl (Desyrel) 12.5 mg TID@0900,1300,1700 PO Last administered on 12/20 11:46; Start 12/17/17 at 13:00 Sodium Chloride 1,000 ml @ 100 mls/hr Q10H IV Last administered on 12/18/17at 07:20; Start 12/17/17 at 11:20; Stop 12/18/17 at 12:47; Status DC Ondansetron HCl (Zofran) 4 mg PRN Q8HRS PRN IV NAUSEA/VOMITING; Start 12/17/17 at 11:30 Albuterol/ Ipratropium (Duoneb) 3 ml RTQID NEB Last administered on 12/20/17at 05:44; Start 12/17/17 at 12:00 Meropenem 1 gm/ Sodium Chloride 100 ml @ 200 mls/hr Q12H IV Last administered on 12/20/17at 11:46; Start 12/17/17 at 12:00 Linezolid 300 ml @ 300 mls/hr Q12H IV Last administered on 12/20/17at 12:11; Start 12/17/17 at 13:00 Fluticasone Propionate (Flonase) 2 spray PRN DAILY PRN NS ALLERGIES; Start 05/27 at 12:01 Haloperidol (Haldol) 15 mg 1X ONCE PO Last administered on 12/17/17at 12:22; Start 12/17/17 at 12:15; Stop 12/17/17 at 12:16; Status DC Aripiprazole (Abilify) 10 mg 1X ONCE PO Last administered on 12/17/17at 12:23; Start 12/17/17 at 12:15; Stop 12/17/17 at 12:16; Status DC Insulin Human Lispro (HumaLOG) 4 units DAILYWBKFT SQ ; Start 12/19/17 at 08:00; Status Cancel Insulin Human Lispro (HumaLOG) 8 units DAILYBFRLUN SQ Last administered on 12/20at 11:47; Start 12/18/17 at 11:30 Insulin Human Lispro (HumaLOG) 10 units DAILYBFRSUP SQ Last administered on 07/27at 17:41; Start 12/18/17 at 12:00 Insulin Human Lispro (HumaLOG) 4 units DAILYWBKFT SQ Last administered on at 07:59; Start 12/18/17 at 08:00 Heparin Sodium (Porcine) (Heparin Sq) 5,000 unit Q12HR SQ Last administered on 12/20/17at 07:59; Start 12/19/17 at 11:15 Olanzapine (ZyPREXA ZYDIS) 5 mg PRN Q2HR PRN PO PSYCHOSIS Last administered on 12/20/17at 07:53; Start 12/19/17 at 20:15 Active Scripts Active Reported Trazodone Hcl 50 Mg Tablet 12.5 Mg PO TID@0900,1300,1700 Levaquin (Levofloxacin) 500 Mg Tablet 1 Tab PO DAILY06 Fluvoxamine Maleate 50 Mg Tablet 1 Tab PO QHS Clozaril (Clozapine) 25 Mg Tablet 75 Mg PO QHS Refresh Classic Eye Drops (Polyvinyl Alcohol/Povidone/Pf) 1 Each Droperette 1 Drop OU PRN Q15MIN PRN Miralax (Polyethylene Glycol 3350) 17 Gm Powd.pack 1 Packet PO DAILY Preparation H (Witch Danielle) 1 Each Med..pad 1 Supp SD PRN Q8HRS PRN Analgesic [place] (Methyl Salicylate/Menthol) 28 Gm Oint...g. 1 Gm TP PRN QID PRN Zyprexa Zydis (Olanzapine) 5 Mg Tab.rapdis 2.5 Mg PO PRN Q2HR PRN Depakote Er (Divalproex Sodium) 500 Mg Tab.er.24h 1,500 Tab PO QHS Culturelle (Lactobacillus Rhamnosus Gg) 1 Each Cap.sprink 1 Each PO BID Tramadol Hcl (Tramadol HCl) 50 Mg Tablet 50 Mg PO PRN Q6HRS PRN Multi Vitamin Daily (Multivitamin) 1 Each Tablet 1 Tab PO DAILY Simethicone 125 Mg Capsule 120 Mg PO TID Senna Lax (Sennosides) 8.6 Mg Tablet 8.6 Mg PO BID Potassium Chloride 10 Meq Tablet.er 10 Meq PO DAILY Actos (Pioglitazone Hcl) 30 Mg Tablet 30 Mg PO DAILY Pepcid (Famotidine) 20 Mg Tablet 20 Mg PO BID Novolog Flexpen (Insulin Aspart) 100 Unit/1 Ml Insuln.pen 8 Units SQ DAILYBFRLUN Novolog Flexpen (Insulin Aspart) 100 Unit/1 Ml Insuln.pen 4 Units SQ DAILYWBKFT Novolog Flexpen (Insulin Aspart) 100 Unit/1 Ml Insuln.pen 10 Unit SQ DAILYBFRSUP Mintox Suspension (Mag Hydrox/Al Hydrox/Simeth) 355 Ml Oral.susp 15 Ml PO PRN BID PRN Milk Of Magnesia (Magnesium Hydroxide) 2,400 Mg/10 Ml Oral.susp 2,400 Mg PO PRN DAILY PRN Mapap (Acetaminophen) 500 Mg Tablet 500 Mg PO PRN Q6HRS PRN Magnesium Oxide 400 Mg Tablet 400 Mg PO DAILY Lisinopril 20 Mg Tablet 20 Mg PO DAILY Levemir Flextouch (Insulin Detemir) 100 Unit/1 Ml Insuln.pen 26 Units SQ DAILYWBKFT Levemir Flextouch (Insulin Detemir) 100 Unit/1 Ml Insuln.pen 16 Units SQ HS Lasix (Furosemide) 40 Mg Tablet 40 Mg PO DAILY Haloperidol 10 Mg Tablet 15 Mg PO BID Haloperidol Lactate 5 Mg/1 Ml Vial 5 Mg IM PRN Q4HRS PRN Glucagen (Glucagon,Human Recombinant) 1 Mg/1 Ml Vial 1 Mg SQ PRN PRN Gemfibrozil 600 Mg Tablet 600 Mg PO BID Gabapentin 300 Mg Capsule 300 Mg PO TID Flonase Allergy Relief (Fluticasone Propionate) 9.9 Ml [place].susp 2 Sprays NS PRN PRN Docusate Sodium 100 Mg Capsule 100 Mg PO DAILY Docusate Sodium 100 Mg Capsule 100 Mg PO PRN DAILY PRN Clonidine Hcl 0.1 Mg Tablet 0.1 Mg PO HS Cetirizine Hcl 10 Mg Tablet 10 Mg PO DAILY Aspirin Ec (Aspirin) 81 Mg Tablet.dr 81 Mg PO DAILY Amlodipine Besylate 10 Mg Tablet 10 Mg PO DAILY Abilify (Aripiprazole) 15 Mg Tablet 10 Mg PO BID Vitals/I & O Vital Sign - Last 24 Hours 12/19/17 12/19/17 12/19/17 12/19/17 16:58 20:00 20:50 22:20 Temp 97.7 Pulse 87 90 90 Resp 18 B/P (MAP) 153/55 (87) 149/58 (88) 149/58 Pulse Ox 95 96 O2 Delivery Room Air Room Air Nasal Cannula O2 Flow Rate 2.0 12/20/17 12/20/17 12/20/17 12/20/17 00:00 04:00 05:50 07:54 Pulse 84 82 80 Resp 18 16 B/P (MAP) 141/56 (84) 126/57 (80) Pulse Ox 95 98 94 O2 Delivery Room Air Room Air Room Air 12/20/17 12/20/17 12/20/17 12/20/17 07:55 08:00 08:39 12:02 Temp 98.4 Pulse 88 80 87 Resp 16 16 B/P (MAP) 145/65 (91) 136/61 (86) Pulse Ox 98 98 O2 Delivery Nasal Cannula Room Air Room Air O2 Flow Rate 2.0 Intake and Output 12/19/17 12/19/17 12/20/17 15:00 23:00 07:00 Intake Total 600 ml 1180 ml 240 ml Balance 600 ml 1180 ml 240 ml TRA HERRMANN MD December 20, 2017 13:55
[2017-12-20 15:00] VITALS: BP 124/80
--- NOTE | 2017-12-20 16:54 | RAD ---
PA and lateral chest. HISTORY: Pneumonia with cough PA and lateral views were taken of the chest. Heart is normal in size. There are no definite infiltrates. There is no effusion. IMPRESSION: 1. No acute infiltrates. Electronically signed by: Deepak Andrade MD (12/20/2017 4:50 PM) [facility]
--- NOTE | 2017-12-20 18:51 | PDOC ---
Exam Note: Tay Note: Please also refer to the separate dictated note~for this date of service dictated separately.~Patient seen individually. Discussed the patient with Nursing staff reviewed the chart.~Reviewed interim history and current functioning. Reviewed vital signs,~Labs/ Radiology~and current medications noted below. Continue current treatment with the changes noted in the dictated addendum note Assessment: Vital Signs: Vital Signs Date Time Temp Pulse Resp B/P (MAP) Pulse Ox O2 Delivery O2 Flow Rate FiO2 12/20/17 16:11 94 Nasal Cannula 2.0 12/20/17 15:00 87 16 124/80 (95) 12/20/17 08:39 98.4 I&O Intake and Output 12/20/17 07:00 Intake Total 2020 ml Balance 2020 ml Intake Oral 1620 ml IV Total 400 ml # Voids 3 Labs: Laboratory Tests Test 12/19/17 21:47 12/20/17 05:06 12/20/17 08:03 12/20/17 11:31 Glucose (Fingerstick) 185 mg/dL (70-99) H 111 mg/dL (70-99) H 212 mg/dL (70-99) H Sodium Level 145 mmol/L (136-145) Potassium Level 4.3 mmol/L (3.5-5.1) Chloride Level 104 mmol/L (98-107) Carbon Dioxide Level 34 mmol/L (21-32) H Anion Gap 7 (6-14) Blood Urea Nitrogen 29 mg/dL (7-20) H Creatinine 2.3 mg/dL (0.6-1.0) H Estimated GFR (Cockcroft-Gault) 27.2 BUN/Creatinine Ratio 13 (6-20) Glucose Level 118 mg/dL (70-99) H Calcium Level 8.6 mg/dL (8.5-10.1) Total Bilirubin 0.2 mg/dL (0.2-1.0) Aspartate Amino Transferase (AST) 17 U/L (15-37) Alanine Aminotransferase (ALT) 18 U/L (14-59) Alkaline Phosphatase 121 U/L (46-116) H Total Protein 6.3 g/dL (6.4-8.2) L Albumin 2.6 g/dL (3.4-5.0) L Albumin/Globulin Ratio 0.7 (1.0-1.7) L Test 12/20/17 17:35 Glucose (Fingerstick) 113 mg/dL (70-99) H Current Medications: Meds: Current Medications Clonidine HCl (Catapres) 0.1 mg HS PO Last administered on 12/19/17at 22:20; Start 12/17/17 at 21:00 Gabapentin (Neurontin) 300 mg TID PO Last administered on 12/20/17at 11:46; Start 12/17/17 at 14:00 Insulin Aspart (NovoLOG) 4 units DAILYWBKFT SQ ; Start 12/18/17 at 08:00; Stop 12/18/17 at 08:31; Status DC Insulin Aspart (NovoLOG) 8 units DAILYBFRLUN SQ ; Start 12/17/17 at 11:30; Stop 12/18/17 at 08:32; Status DC Insulin Aspart (NovoLOG) 10 units DAILYBFRSUP SQ ; Start 12/17/17 at 17:00; Stop 12/18/17 at 08:33; Status DC Lactobacillus Rhamnosus (Culturelle) 1 cap BID PO Last administered on at 07:54; Start 12/17/17 at 21:00 Lisinopril (Prinivil) 20 mg DAILY PO Last administered on 12/20/17at 07:55; Start 12/18/17 at 09:00 Olanzapine (ZyPREXA ZYDIS) 2.5 mg PRN Q2HR PRN PO PSYCHOSIS Last administered on 12/18/17at 17:21; Start 12/17/17 at 11:15; Stop 12/19/17 at 20:14; Status DC Tramadol HCl (Ultram) 50 mg PRN Q6HRS PRN PO PAIN; Start 12/17/17 at 11:15; Stop 12/17/17 at 11:47; Status DC Acetaminophen (Tylenol) 500 mg PRN Q6HRS PRN PO PAIN / TEMP; Start 12/17/17 at 12:00 Amlodipine Besylate (Norvasc) 10 mg DAILY PO Last administered on 12/20/17at 07: 54; Start 12/18/17 at 09:00 Aripiprazole (Abilify) 10 mg BID PO Last administered on 12/20/17at 07:53; Start 12/17/17 at 21:00 Aspirin (Aspirin Enteric Coated) 81 mg DAILYWBKFT PO Last administered on 07:54; Start 12/18/17 at 08:00 Cetirizine HCl (ZyrTEC) 10 mg DAILY PO Last administered on 12/20/17 07:55; Start 12/18/17 at 09:00 Clozapine (Clozaril) 75 mg QHS PO Last administered on 12/19/17 22:19; Start 12/17/17 at 21:00 Divalproex Sodium (Depakote Er) 1,500 mg QHS PO Last administered on 12/19/17 22:19; Start 12/17/17 at 21:00 Docusate Sodium (Colace) 100 mg DAILY PO Last administered on 12/20/17 07:54; Start 12/18/17 at 09:00 Docusate Sodium (Colace) 100 mg PRN DAILY PRN PO CONSTIPATION; Start 12/17/17 at 12:00 Famotidine (Pepcid) 20 mg BID PO Last administered on 12/20/17 07:55; Start at 21:00 Fluticasone Propionate (Flonase) 2 spray PRN DAILY PRN NS ALLERGIES; Start 05/27 at 12:00; Stop 12/17/17 at 12:01; Status DC Fluvoxamine Maleate (Luvox) 50 mg QHS PO Last administered on 12/19/17 22:21; Start 12/17/17 at 21:00 Furosemide (Lasix) 40 mg DAILY PO Last administered on 12/20/17 07:54; Start 12/18/17 at 09:00 Gemfibrozil (Lopid) 600 mg BIDBFRMEAL PO Last administered on 12/20/17 17:37; Start 12/17/17 at 16:30 Haloperidol (Haldol) 15 mg BID PO Last administered on 12/20/17 07:55; Start 12/17/17 at 21:00 Haloperidol Lactate (Haldol) 5 mg PRN Q4HRS PRN IM PSYCHOSIS Last administered on 12/18/17 17:21; Start 12/17/17 at 12:00 Insulin Glargine (Lantus) 16 units QHS SQ Last administered on 5/12/18at 22:22 ; Start 12/17/17 at 21:00 Insulin Glargine (Lantus) 26 units DAILYWBKFT SQ Last administered on at 08:00; Start 12/18/17 at 08:00 Non-Formulary Medication (Levofloxacin (Levaquin)) 1 tab DAILY06 PO ; Start 06/27 at 06:00; Status UNV Magnesium Oxide (Magnesium Oxide) 400 mg DAILY PO Last administered on at 07:55; Start 12/18/17 at 09:00 Multivitamins/ Calcium (Thera-M Plus) 1 tab DAILY PO Last administered on 07:55; Start 12/18/17 at 09:00 Pioglitazone HCl (Actos) 30 mg DAILY PO Last administered on 12/20/17 07:53; Start 12/18/17 at 09:00 Polyethylene Glycol (miraLAX) 17 gm DAILY PO Last administered on 12/20/17at 07: 56; Start 12/18/17 at 09:00 Potassium Chloride (Klor-Con) 10 meq DAILYWBKFT PO Last administered on at 07:53; Start 12/18/17 at 08:00 Sennosides (Senna) 8.6 mg BID PO Last administered on 12/20/17 07:55; Start at 21:00 Simethicone (Gas-X) 120 mg TID PO Last administered on 12/20/17at 11:46; Start 12/17/17 at 14:00 Trazodone HCl (Desyrel) 12.5 mg TID@0900,1300,1700 PO Last administered on 12/20at 17:37; Start 12/17/17 at 13:00 Sodium Chloride 1,000 ml @ 100 mls/hr Q10H IV Last administered on 12/18/17at 07:20; Start 12/17/17 at 11:20; Stop 12/18/17 at 12:47; Status DC Ondansetron HCl (Zofran) 4 mg PRN Q8HRS PRN IV NAUSEA/VOMITING; Start 12/17/17 at 11:30 Albuterol/ Ipratropium (Duoneb) 3 ml RTQID NEB Last administered on 12/20/17 16:09; Start 12/17/17 at 12:00 Meropenem 1 gm/ Sodium Chloride 100 ml @ 200 mls/hr Q12H IV Last administered on 12/20/17at 11:46; Start 12/17/17 at 12:00 Linezolid 300 ml @ 300 mls/hr Q12H IV Last administered on 12/20/17 12:11; Start 12/17/17 at 13:00 Fluticasone Propionate (Flonase) 2 spray PRN DAILY PRN NS ALLERGIES; Start 05/27 at 12:01 Haloperidol (Haldol) 15 mg 1X ONCE PO Last administered on 12/17/17 12:22; Start 12/17/17 at 12:15; Stop 12/17/17 at 12:16; Status DC Aripiprazole (Abilify) 10 mg 1X ONCE PO Last administered on 12/17/17at 12:23; Start 12/17/17 at 12:15; Stop 12/17/17 at 12:16; Status DC Insulin Human Lispro (HumaLOG) 4 units DAILYWBKFT SQ ; Start 12/19/17 at 08:00; Status Cancel Insulin Human Lispro (HumaLOG) 8 units DAILYBFRLUN SQ Last administered on 12/20 11:47; Start 12/18/17 at 11:30 Insulin Human Lispro (HumaLOG) 10 units DAILYBFRSUP SQ Last administered on 07/27at 17:41; Start 12/18/17 at 12:00 Insulin Human Lispro (HumaLOG) 4 units DAILYWBKFT SQ Last administered on at 07:59; Start 12/18/17 at 08:00 Heparin Sodium (Porcine) (Heparin Sq) 5,000 unit Q12HR SQ Last administered on 12/20/17 07:59; Start 12/19/17 at 11:15 Olanzapine (ZyPREXA ZYDIS) 5 mg PRN Q2HR PRN PO PSYCHOSIS Last administered on 12/20/17at 07:53; Start 12/19/17 at 20:15 Active Scripts Active Reported Trazodone Hcl 50 Mg Tablet 12.5 Mg PO TID@0900,1300,1700 Levaquin (Levofloxacin) 500 Mg Tablet 1 Tab PO DAILY06 Fluvoxamine Maleate 50 Mg Tablet 1 Tab PO QHS Clozaril (Clozapine) 25 Mg Tablet 75 Mg PO QHS Refresh Classic Eye Drops (Polyvinyl Alcohol/Povidone/Pf) 1 Each Droperette 1 Drop OU PRN Q15MIN PRN Miralax (Polyethylene Glycol 3350) 17 Gm Powd.pack 1 Packet PO DAILY Preparation H (Witch Danielle) 1 Each Med..pad 1 Supp MD PRN Q8HRS PRN Analgesic [place] (Methyl Salicylate/Menthol) 28 Gm Oint...g. 1 Gm TP PRN QID PRN Zyprexa Zydis (Olanzapine) 5 Mg Tab.rapdis 2.5 Mg PO PRN Q2HR PRN Depakote Er (Divalproex Sodium) 500 Mg Tab.er.24h 1,500 Tab PO QHS Culturelle (Lactobacillus Rhamnosus Gg) 1 Each Cap.sprink 1 Each PO BID Tramadol Hcl (Tramadol HCl) 50 Mg Tablet 50 Mg PO PRN Q6HRS PRN Multi Vitamin Daily (Multivitamin) 1 Each Tablet 1 Tab PO DAILY Simethicone 125 Mg Capsule 120 Mg PO TID Senna Lax (Sennosides) 8.6 Mg Tablet 8.6 Mg PO BID Potassium Chloride 10 Meq Tablet.er 10 Meq PO DAILY Actos (Pioglitazone Hcl) 30 Mg Tablet 30 Mg PO DAILY Pepcid (Famotidine) 20 Mg Tablet 20 Mg PO BID Novolog Flexpen (Insulin Aspart) 100 Unit/1 Ml Insuln.pen 8 Units SQ DAILYBFRLUN Novolog Flexpen (Insulin Aspart) 100 Unit/1 Ml Insuln.pen 4 Units SQ DAILYWBKFT Novolog Flexpen (Insulin Aspart) 100 Unit/1 Ml Insuln.pen 10 Unit SQ DAILYBFRSUP Mintox Suspension (Mag Hydrox/Al Hydrox/Simeth) 355 Ml Oral.susp 15 Ml PO PRN BID PRN Milk Of Magnesia (Magnesium Hydroxide) 2,400 Mg/10 Ml Oral.susp 2,400 Mg PO PRN DAILY PRN Mapap (Acetaminophen) 500 Mg Tablet 500 Mg PO PRN Q6HRS PRN Magnesium Oxide 400 Mg Tablet 400 Mg PO DAILY Lisinopril 20 Mg Tablet 20 Mg PO DAILY Levemir Flextouch (Insulin Detemir) 100 Unit/1 Ml Insuln.pen 26 Units SQ DAILYWBKFT Levemir Flextouch (Insulin Detemir) 100 Unit/1 Ml Insuln.pen 16 Units SQ HS Lasix (Furosemide) 40 Mg Tablet 40 Mg PO DAILY Haloperidol 10 Mg Tablet 15 Mg PO BID Haloperidol Lactate 5 Mg/1 Ml Vial 5 Mg IM PRN Q4HRS PRN Glucagen (Glucagon,Human Recombinant) 1 Mg/1 Ml Vial 1 Mg SQ PRN PRN Gemfibrozil 600 Mg Tablet 600 Mg PO BID Gabapentin 300 Mg Capsule 300 Mg PO TID Flonase Allergy Relief (Fluticasone Propionate) 9.9 Ml [place].susp 2 Sprays NS PRN PRN Docusate Sodium 100 Mg Capsule 100 Mg PO DAILY Docusate Sodium 100 Mg Capsule 100 Mg PO PRN DAILY PRN Clonidine Hcl 0.1 Mg Tablet 0.1 Mg PO HS Cetirizine Hcl 10 Mg Tablet 10 Mg PO DAILY Aspirin Ec (Aspirin) 81 Mg Tablet.dr 81 Mg PO DAILY Amlodipine Besylate 10 Mg Tablet 10 Mg PO DAILY Abilify (Aripiprazole) 15 Mg Tablet 10 Mg PO BID I have reviewed the current psychotropics carefully including drug interactions. Risk benefit ratio favors no change other than as noted in my dictated progress note. Diagnosis: Problems: (1) Schizophrenia, disorganized, subchronic with acute exacerbation (2) Schizoaffective disorder, chronic condition with acute exacerbation (3) Bipolar affective, mixed, sev w/ psych (4) Anxiety disorder JASS HUNG MD December 20, 2017 18:51
[2017-12-20 19:45] VITALS: BP 142/68
[2017-12-20] MEDS: DIVALPROEX ER 500 MG TAB.ER.24H PO SCH (21:13)
[2017-12-20] MEDS: cloNIDine HCL 0.1 MG TABLET PO SCH (21:14)
[2017-12-20] MEDS: cloZAPine 25 MG TABLET PO SCH (21:14)
--- NOTE | 2017-12-20 22:26 | PN ---
DATE: 12/19/2017 PSYCHIATRIC PROGRESS NOTE This late entry 12/19/2017 covers elements not covered in my initial note of 12/19/2017. SUBJECTIVE: Met with the patient in the evening. Per nursing report, the patient is doing much better. She is much less delusional, not fixated on having a baby and not actively hallucinating and talking to someone in her room when no one is there like she was doing the day previously when I met with her. REVIEW OF SYSTEMS: Positive for tiredness, impaired ambulation. No CV, , pulmonary, eye system symptoms on review, does complain of feeling tired. MENTAL STATUS EXAM: Oriented to herself, situation. Speech is coherent, less pressured. Abstraction fair, computation is impaired, language function intact. She was much more appropriate, but did not seem to recognize me. Not actively hallucinating as I met with her. LABORATORY DATA: Reviewed. IMPRESSION: Unchanged from initial note, schizoaffective disorder, bipolar type, mixed with psychotic features. PLAN: Continue psychotropics mentioned in my initial note. MAN Prosper HUNG MD DR: KATIANA/alicia JOB#: [id number] / [id number]
--- NOTE | 2017-12-21 00:07 | PN ---
DATE: 12/20/2017 This note covers the elements not covered in my initial note 12/20/2017. SUBJECTIVE: I met with the patient in the evening in ICU bed 5. Apparently, medically she is stable enough to get back to the inpatient psychiatry service and we will facilitate this. She has been much less psychotic, less agitated. REVIEW OF SYSTEMS: No CV, , pulmonary, eye system, symptoms on review. She is somewhat tired, withdrawn. MENTAL STATUS EXAM: Otherwise, oriented to herself and situation. Speech moderate latency, often responses monosyllabic. Mood and affect withdrawn. No active suicidal or homicidal ideation. LABORATORY DATA: Reviewed. IMPRESSION: Unchanged from initial note. PLAN: No change from a psychiatric standpoint. We will transfer [facility] to the [facility]. Adjust the Clozaril to a therapeutic level, try, and get her off the Abilify and Haldol at that stage. Continue the mood stabilizers. JASS HUNG MD DR: KATIANA/alicia JOB#: [id number] / [id number]
[2017-12-21] MEDS ORDERED: IPRA3AMP NEB (00:41)
--- NOTE | 2017-12-21 01:00 | PDOC3 ---
Discharge Summary Discharge Summary Date of Admission Date of Admission: December 17, 2017 at 10:45 Admitting Diagnosis 1. Pneumonia 2. Schizophrenia w/ psychosis 3. Morbid obesity 4. Type 2 DM w/ renal manifestations 5. Stage 3 CKD Date of Discharge: December 20, 2017 Discharge Diagnosis 1. Pneumonia 2. Schizophrenia w/ psychosis 3. Morbid obesity 4. Type 2 DM w/ renal manifestations 5. Stage 3 CKD Laboratory Findings Laboratory Tests Test 12/17/17 11:05 12/17/17 11:30 12/17/17 11:50 12/17/17 12:05 Nasal Screen MRSA (PCR) Negative (Negative) White Blood Count 9.3 x10^3/uL (4.0-11.0) Red Blood Count 3.87 x10^6/uL (3.50-5.40) Hemoglobin 10.5 g/dL (12.0-15.5) Hematocrit 32.7 % (36.0-47.0) Mean Corpuscular Volume 85 fL (79-100) Mean Corpuscular Hemoglobin 27 pg (25-35) Mean Corpuscular Hemoglobin Concent 32 g/dL (31-37) Red Cell Distribution Width 16.7 % (11.5-14.5) Platelet Count 241 x10^3/uL (140-400) Neutrophils (%) (Auto) 67 % (31-73) Lymphocytes (%) (Auto) 23 % (24-48) Monocytes (%) (Auto) 7 % (0-9) Eosinophils (%) (Auto) 3 % (0-3) Basophils (%) (Auto) 0 % (0-3) Neutrophils # (Auto) 6.2 x10^3uL (1.8-7.7) Lymphocytes # (Auto) 2.1 x10^3/uL (1.0-4.8) Monocytes # (Auto) 0.7 x10^3/uL (0.0-1.1) Eosinophils # (Auto) 0.3 x10^3/uL (0.0-0.7) Basophils # (Auto) 0.0 x10^3/uL (0.0-0.2) Segmented Neutrophils % 68 % (35-66) Band Neutrophils % 2 % (0-9) Lymphocytes % 22 % (24-48) Monocytes % 4 % (0-10) Eosinophils % 4 % (0-5) Toxic Granulation Slight Toxic Vacuolation Slight Dohle Bodies Present Platelet Estimate Adequate (ADEQUATE) Large Platelets Occ Polychromasia Slight Basophilic Stippling Present Anisocytosis Slight Sodium Level 145 mmol/L (136-145) Potassium Level 4.2 mmol/L (3.5-5.1) Chloride Level 103 mmol/L (98-107) Carbon Dioxide Level 35 mmol/L (21-32) Anion Gap 7 (6-14) Blood Urea Nitrogen 48 mg/dL (7-20) Creatinine 3.0 mg/dL (0.6-1.0) Estimated GFR (Cockcroft-Gault) 20.0 BUN/Creatinine Ratio 16 (6-20) Glucose Level 83 mg/dL (70-99) Lactic Acid Level 1.0 mmol/L (0.4-2.0) Calcium Level 8.7 mg/dL (8.5-10.1) Magnesium Level 2.8 mg/dL (1.8-2.4) Total Bilirubin 0.2 mg/dL (0.2-1.0) Aspartate Amino Transf (AST/SGOT) 14 U/L (15-37) Alanine Aminotransferase (ALT/SGPT) 20 U/L (14-59) Alkaline Phosphatase 122 U/L (46-116) Total Protein 7.0 g/dL (6.4-8.2) Albumin 2.9 g/dL (3.4-5.0) Albumin/Globulin Ratio 0.7 (1.0-1.7) Urine Collection Type Unknown Urine Color Yellow Urine Clarity Clear Urine pH 5.5 Urine Specific [place] 1.010 Urine Protein 100 mg/dl (NEG-TRACE) Urine Glucose (UA) Neg mg/dL (NEG) Urine Ketones (Stick) Neg mg/dL (NEG) Urine Blood Neg (NEG) Urine Nitrite Neg (NEG) Urine Bilirubin Neg (NEG) Urine Urobilinogen Dipstick 0.2 mg/dL (0.2 mg/dL) Urine Leukocyte Esterase Small (NEG) Urine RBC 1-2 /HPF (0-2) Urine WBC 11-20 /HPF (0-4) Urine Squamous Epithelial Cells Few /LPF Urine Transitional Epithelial Cells Few /LPF Urine Bacteria Few /HPF (0-FEW) Glucose (Fingerstick) 70 mg/dL (70-99) Test 12/17/17 12:06 12/17/17 16:44 12/17/17 19:11 12/18/17 07:19 Blood Gas pH 7.44 (7.35-7.45) Blood Gas PCO2 55 mmHg (35-45) Blood Gas PO2 83 mmHg (80-100) Blood Gas HCO3 37 mmol/L (22-26) Arterial Bld O2 Saturation (Calc) 96 % (92-99) FiO2 28 % Glucose (Fingerstick) 154 mg/dL (70-99) 256 mg/dL (70-99) White Blood Count 5.4 x10^3/uL (4.0-11.0) Red Blood Count 3.72 x10^6/uL (3.50-5.40) Hemoglobin 10.0 g/dL (12.0-15.5) Hematocrit 31.6 % (36.0-47.0) Mean Corpuscular Volume 85 fL (79-100) Mean Corpuscular Hemoglobin 27 pg (25-35) Mean Corpuscular Hemoglobin Concent 32 g/dL (31-37) Red Cell Distribution Width 16.0 % (11.5-14.5) Platelet Count 222 x10^3/uL (140-400) Neutrophils (%) (Auto) 59 % (31-73) Lymphocytes (%) (Auto) 23 % (24-48) Monocytes (%) (Auto) 12 % (0-9) Eosinophils (%) (Auto) 6 % (0-3) Basophils (%) (Auto) 0 % (0-3) Neutrophils # (Auto) 3.2 x10^3uL (1.8-7.7) Lymphocytes # (Auto) 1.3 x10^3/uL (1.0-4.8) Monocytes # (Auto) 0.7 x10^3/uL (0.0-1.1) Eosinophils # (Auto) 0.3 x10^3/uL (0.0-0.7) Basophils # (Auto) 0.0 x10^3/uL (0.0-0.2) Sodium Level 147 mmol/L (136-145) Potassium Level 4.0 mmol/L (3.5-5.1) Chloride Level 107 mmol/L (98-107) Carbon Dioxide Level 33 mmol/L (21-32) Anion Gap 7 (6-14) Blood Urea Nitrogen 35 mg/dL (7-20) Creatinine 2.2 mg/dL (0.6-1.0) Estimated GFR (Cockcroft-Gault) 28.6 Glucose Level 263 mg/dL (70-99) Calcium Level 8.4 mg/dL (8.5-10.1) Magnesium Level 2.3 mg/dL (1.8-2.4) Test 12/18/17 08:04 12/18/17 11:53 12/18/17 13:04 12/18/17 16:09 Glucose (Fingerstick) 231 mg/dL (70-99) 184 mg/dL (70-99) 248 mg/dL (70-99) Prothrombin Time 9.9 SEC (9.4-11.4) Prothromb Time International Ratio 1.0 (0.9-1.1) Ammonia < 10 mcmol/L (11-34) Test 12/18/17 20:12 12/19/17 05:15 12/19/17 12:19 12/19/17 16:55 Glucose (Fingerstick) 265 mg/dL (70-99) 189 mg/dL (70-99) 145 mg/dL (70-99) White Blood Count 6.7 x10^3/uL (4.0-11.0) Red Blood Count 3.71 x10^6/uL (3.50-5.40) Hemoglobin 10.1 g/dL (12.0-15.5) Hematocrit 31.8 % (36.0-47.0) Mean Corpuscular Volume 86 fL (79-100) Mean Corpuscular Hemoglobin 27 pg (25-35) Mean Corpuscular Hemoglobin Concent 32 g/dL (31-37) Red Cell Distribution Width 16.4 % (11.5-14.5) Platelet Count 202 x10^3/uL (140-400) Neutrophils (%) (Auto) 44 % (31-73) Lymphocytes (%) (Auto) 37 % (24-48) Monocytes (%) (Auto) 12 % (0-9) Eosinophils (%) (Auto) 6 % (0-3) Basophils (%) (Auto) 1 % (0-3) Neutrophils # (Auto) 2.9 x10^3uL (1.8-7.7) Lymphocytes # (Auto) 2.5 x10^3/uL (1.0-4.8) Monocytes # (Auto) 0.8 x10^3/uL (0.0-1.1) Eosinophils # (Auto) 0.4 x10^3/uL (0.0-0.7) Basophils # (Auto) 0.1 x10^3/uL (0.0-0.2) Sodium Level 146 mmol/L (136-145) Potassium Level 4.9 mmol/L (3.5-5.1) Chloride Level 107 mmol/L (98-107) Carbon Dioxide Level 31 mmol/L (21-32) Anion Gap 8 (6-14) Blood Urea Nitrogen 29 mg/dL (7-20) Creatinine 2.1 mg/dL (0.6-1.0) Estimated GFR (Cockcroft-Gault) 30.2 BUN/Creatinine Ratio 14 (6-20) Glucose Level 142 mg/dL (70-99) Calcium Level 8.5 mg/dL (8.5-10.1) Total Bilirubin 0.2 mg/dL (0.2-1.0) Aspartate Amino Transf (AST/SGOT) 17 U/L (15-37) Alanine Aminotransferase (ALT/SGPT) 18 U/L (14-59) Alkaline Phosphatase 138 U/L (46-116) Total Protein 6.0 g/dL (6.4-8.2) Albumin 2.8 g/dL (3.4-5.0) Albumin/Globulin Ratio 0.9 (1.0-1.7) Test 12/19/17 21:47 12/20/17 05:06 12/20/17 08:03 12/20/17 11:31 Glucose (Fingerstick) 185 mg/dL (70-99) 111 mg/dL (70-99) 212 mg/dL (70-99) Sodium Level 145 mmol/L (136-145) Potassium Level 4.3 mmol/L (3.5-5.1) Chloride Level 104 mmol/L (98-107) Carbon Dioxide Level 34 mmol/L (21-32) Anion Gap 7 (6-14) Blood Urea Nitrogen 29 mg/dL (7-20) Creatinine 2.3 mg/dL (0.6-1.0) Estimated GFR (Cockcroft-Gault) 27.2 BUN/Creatinine Ratio 13 (6-20) Glucose Level 118 mg/dL (70-99) Calcium Level 8.6 mg/dL (8.5-10.1) Total Bilirubin 0.2 mg/dL (0.2-1.0) Aspartate Amino Transf (AST/SGOT) 17 U/L (15-37) Alanine Aminotransferase (ALT/SGPT) 18 U/L (14-59) Alkaline Phosphatase 121 U/L (46-116) Total Protein 6.3 g/dL (6.4-8.2) Albumin 2.6 g/dL (3.4-5.0) Albumin/Globulin Ratio 0.7 (1.0-1.7) Test 12/20/17 17:35 12/20/17 21:22 Glucose (Fingerstick) 113 mg/dL (70-99) 211 mg/dL (70-99) Hospital Course Pt was admitted from H unit due to pneumonia. She was treated w/ Merrem and Linezolid. She recovered nicely. She was continued on all of her other medications. Her CXR on 12/20 showed resolution of infiltrates. Pt will be treated w/ 7 more days of doxycycline to complete the abx course. She was still having quite a few psychoses while an inpatient, and was re-screened for the H unit and accepted. Treatment IV abx Condition at Discharge: Stable Home Meds Reported Medications Ipratropium/Albuterol Sulfate (DUONEB 0.5-3(2.5) MG/3 ML) 3 Ml Ampul.neb, 3 ML NEB RTQID, EACH 12/21/17 Trazodone Hcl (TRAZODONE HCL) 50 Mg Tablet, 12.5 MG PO TID@0900,1300,1700, TAB 12/17/17 Fluvoxamine Maleate (FLUVOXAMINE MALEATE) 50 Mg Tablet, 50 MG PO QHS for Depression 12/17/17 Clozapine (CLOZARIL) 25 Mg Tablet, 75 MG PO QHS for Schizophrenia, TAB 12/17/17 Polyethylene Glycol 3350 (MIRALAX) 17 Gm Powd.pack, 1 PACKET PO DAILY for Constipation 12/17/17 Olanzapine (ZYPREXA ZYDIS) 5 Mg Tab.rapdis, 5 MG PO PRN Q2HR PRN for PSYCHOSIS, TAB 12/17/17 Divalproex Sodium (DEPAKOTE ER) 500 Mg Tab.er.24h, 1500 TAB PO QHS for Mood stabilization 12/17/17 Lactobacillus Rhamnosus Gg (CULTURELLE) 1 Each Cap.sprink, 1 EACH PO BID for GI Health, CAP 12/17/17 Multivitamin (MULTI VITAMIN DAILY) 1 Each Tablet, 1 TAB PO DAILY for supplement 11/23/17 Simethicone (Simethicone) 125 Mg Capsule, 120 MG PO TID for GAS / BLOATING 11/23/17 Sennosides (SENNA LAX) 8.6 Mg Tablet, 8.6 MG PO BID for CONSTIPATION 11/23/17 Potassium Chloride (POTASSIUM CHLORIDE) 10 Meq Tablet.er, 10 MEQ PO DAILYWBKFT for supplement 11/23/17 Pioglitazone Hcl (ACTOS) 30 Mg Tablet, 30 MG PO DAILY for hyperglycemia 11/23/17 Famotidine (PEPCID) 20 Mg Tablet, 20 MG PO BID for DYSPEPSIA 11/23/17 Insulin Aspart (NOVOLOG FLEXPEN) 100 Unit/1 Ml Insuln.pen, 8 UNITS SQ DAILYBFRLUN for hyperglycemia 11/23/17 Insulin Aspart (NOVOLOG FLEXPEN) 100 Unit/1 Ml Insuln.pen, 4 UNITS SQ DAILYWBKFT for hyperglycemia 11/23/17 Insulin Aspart (NOVOLOG FLEXPEN) 100 Unit/1 Ml Insuln.pen, 10 UNIT SQ DAILYBFRSUP for hyperglycemia 11/23/17 Acetaminophen (MAPAP) 500 Mg Tablet, 500 MG PO PRN Q6HRS PRN for PAIN 11/23/17 Magnesium Oxide (MAGNESIUM OXIDE) 400 Mg Tablet, 400 MG PO DAILY for hypomagnesemia 11/23/17 Lisinopril (LISINOPRIL) 20 Mg Tablet, 20 MG PO DAILY for HYPERTENSION, SEE COMMENTS 11/23/17 Insulin Detemir (Levemir Flextouch) 100 Unit/1 Ml Insuln.pen, 26 UNITS SQ DAILYWBKFT for hyperglycemia 11/23/17 Insulin Detemir (Levemir Flextouch) 100 Unit/1 Ml Insuln.pen, 16 UNITS SQ HS for hyperglycemia 11/23/17 Furosemide (LASIX) 40 Mg Tablet, 40 MG PO DAILY for edema 11/23/17 Haloperidol (HALOPERIDOL) 10 Mg Tablet, 15 MG PO BID for PSYCHOSIS 11/23/17 Haloperidol Lactate (HALOPERIDOL LACTATE) 5 Mg/1 Ml Vial, 5 MG IM PRN Q4HRS PRN for AGITATION 11/23/17 Gemfibrozil (GEMFIBROZIL) 600 Mg Tablet, 600 MG PO BID for hyperlipidemia 11/23/17 Gabapentin (GABAPENTIN) 300 Mg Capsule, 300 MG PO TID for PAIN 11/23/17 Fluticasone Propionate (Flonase Allergy Relief) 9.9 Ml [place].susp, 2 SPRAYS NS PRN PRN for ALLERGIES 11/23/17 Docusate Sodium (DOCUSATE SODIUM) 100 Mg Capsule, 100 MG PO DAILY for CONSTIPATION 11/23/17 Docusate Sodium (DOCUSATE SODIUM) 100 Mg Capsule, 100 MG PO PRN DAILY PRN for CONSTIPATION 11/23/17 Clonidine Hcl (CLONIDINE HCL) 0.1 Mg Tablet, 0.1 MG PO HS for HYPERTENSION, SEE COMMENTS 11/23/17 Cetirizine Hcl (CETIRIZINE HCL) 10 Mg Tablet, 10 MG PO DAILY for ALLERGIES 11/23/17 Aspirin (ASPIRIN EC) 81 Mg Tablet.dr, 81 MG PO DAILYWBKFT for anti-coagulation 11/23/17 Amlodipine Besylate (AMLODIPINE BESYLATE) 10 Mg Tablet, 10 MG PO DAILY for HYPERTENSION, SEE COMMENTS 11/23/17 Aripiprazole (ABILIFY) 15 Mg Tablet, 10 MG PO BID for PSYCHOSIS 11/23/17 Discontinued Reported Medications Levofloxacin (LEVAQUIN) 500 Mg Tablet, 1 TAB PO DAILY06 for Pneumonia, #7 TAB 12/17/17 Polyvinyl Alcohol/Povidone/Pf (REFRESH CLASSIC EYE DROPS) 1 Each Droperette, 1 DROP OU PRN Q15MIN PRN for DRY EYE, DROP 12/17/17 Witch Danielle (PREPARATION H) 1 Each Med..pad, 1 SUPP GA PRN Q8HRS PRN for RECTAL PAIN, PAD 12/17/17 Methyl Salicylate/Menthol (Analgesic [place]) 28 Gm Oint...g., 1 GM TP PRN QID PRN for MUSCLE PAIN, MISC 12/17/17 Tramadol Hcl (TRAMADOL HCL) 50 Mg Tablet, 50 MG PO PRN Q6HRS PRN for PAIN 11/23/17 Mag Hydrox/Al Hydrox/Simeth (MINTOX SUSPENSION) 355 Ml Oral.susp, 15 ML PO PRN BID PRN for gerd 11/23/17 Magnesium Hydroxide (MILK OF MAGNESIA) 2,400 Mg/10 Ml Oral.susp, 2400 MG PO PRN DAILY PRN for CONSTIPATION 11/23/17 Glucagon,Human Recombinant (GLUCAGEN) 1 Mg/1 Ml Vial, 1 MG SQ PRN PRN for hypoglycemia 11/23/17 Gly/Dimeth/Petrolat,Wht/Water (MOISTURIZING CREAM) 453 Gm Cream..g., 1 BARBRA TP PRN PRN for skin protectant, EACH 11/23/17 Atorvastatin Calcium (LIPITOR) 10 Mg Tablet, 10 MG PO QHS for hyperlipidemia, # 30 0 Refills 11/23/17 Erythromycin Base (ERYTHROMYCIN) 250 Mg Tablet, 250 MG PO TIDPC for gastroparesis 11/23/17 Clonazepam (CLONAZEPAM) 0.5 Mg Tablet, 0.5 MG PO BID for ANXIETY 11/23/17 Inpatient Meds Current Medications Clonidine HCl (Catapres) 0.1 mg HS PO Last administered on 12/20/17at 21:14; Start 12/17/17 at 21:00; Stop 12/21/17 at 00:33; Status DC Gabapentin (Neurontin) 300 mg TID PO Last administered on 12/20/17at 21:13; Start 12/17/17 at 14:00; Stop 12/21/17 at 00:33; Status DC Insulin Aspart (NovoLOG) 4 units DAILYWBKFT SQ ; Start 12/18/17 at 08:00; Stop 12/18/17 at 08:31; Status DC Insulin Aspart (NovoLOG) 8 units DAILYBFRLUN SQ ; Start 12/17/17 at 11:30; Stop 12/18/17 at 08:32; Status DC Insulin Aspart (NovoLOG) 10 units DAILYBFRSUP SQ ; Start 12/17/17 at 17:00; Stop 12/18/17 at 08:33; Status DC Lactobacillus Rhamnosus (Culturelle) 1 cap BID PO Last administered on at 21:13; Start 12/17/17 at 21:00; Stop 12/21/17 at 00:33; Status DC Lisinopril (Prinivil) 20 mg DAILY PO Last administered on 12/20/17at 07:55; Start 12/18/17 at 09:00; Stop 12/21/17 at 00:33; Status DC Olanzapine (ZyPREXA ZYDIS) 2.5 mg PRN Q2HR PRN PO PSYCHOSIS Last administered on 12/18/17at 17:21; Start 12/17/17 at 11:15; Stop 12/19/17 at 20:14; Status DC Tramadol HCl (Ultram) 50 mg PRN Q6HRS PRN PO PAIN; Start 12/17/17 at 11:15; Stop 12/17/17 at 11:47; Status DC Acetaminophen (Tylenol) 500 mg PRN Q6HRS PRN PO PAIN / TEMP; Start 12/17/17 at 12:00; Stop 12/21/17 at 00:33; Status DC Amlodipine Besylate (Norvasc) 10 mg DAILY PO Last administered on 12/20/17at 07: 54; Start 12/18/17 at 09:00; Stop 12/21/17 at 00:33; Status DC Aripiprazole (Abilify) 10 mg BID PO Last administered on 12/20/17at 21:13; Start 12/17/17 at 21:00; Stop 12/21/17 at 00:33; Status DC Aspirin (Aspirin Enteric Coated) 81 mg DAILYWBKFT PO Last administered on at 07:54; Start 12/18/17 at 08:00; Stop 12/21/17 at 00:33; Status DC Cetirizine HCl (ZyrTEC) 10 mg DAILY PO Last administered on 12/20/17at 07:55; Start 12/18/17 at 09:00; Stop 12/21/17 at 00:33; Status DC Clozapine (Clozaril) 75 mg QHS PO Last administered on 12/20/17at 21:14; Start 12/17/17 at 21:00; Stop 12/21/17 at 00:33; Status DC Divalproex Sodium (Depakote Er) 1,500 mg QHS PO Last administered on 12/20/17at 21:13; Start 12/17/17 at 21:00; Stop 12/21/17 at 00:33; Status DC Docusate Sodium (Colace) 100 mg DAILY PO Last administered on 12/20/17at 07:54; Start 12/18/17 at 09:00; Stop 12/21/17 at 00:33; Status DC Docusate Sodium (Colace) 100 mg PRN DAILY PRN PO CONSTIPATION; Start 12/17/17 at 12:00; Stop 12/21/17 at 00:33; Status DC Famotidine (Pepcid) 20 mg BID PO Last administered on 12/20/17at 21:13; Start at 21:00; Stop 12/21/17 at 00:33; Status DC Fluticasone Propionate (Flonase) 2 spray PRN DAILY PRN NS ALLERGIES; Start 05/27 at 12:00; Stop 12/17/17 at 12:01; Status DC Fluvoxamine Maleate (Luvox) 50 mg QHS PO Last administered on 12/20/17at 21:13; Start 12/17/17 at 21:00; Stop 12/21/17 at 00:33; Status DC Furosemide (Lasix) 40 mg DAILY PO Last administered on 12/20/17at 07:54; Start 12/18/17 at 09:00; Stop 12/21/17 at 00:33; Status DC Gemfibrozil (Lopid) 600 mg BIDBFRMEAL PO Last administered on 12/20/17at 17:37; Start 12/17/17 at 16:30; Stop 12/21/17 at 00:33; Status DC Haloperidol (Haldol) 15 mg BID PO Last administered on 12/20/17at 21:13; Start 12/17/17 at 21:00; Stop 12/21/17 at 00:33; Status DC Haloperidol Lactate (Haldol) 5 mg PRN Q4HRS PRN IM PSYCHOSIS Last administered on 12/18/17at 17:21; Start 12/17/17 at 12:00; Stop 12/21/17 at 00:33; Status DC Insulin Glargine (Lantus) 16 units QHS SQ Last administered on 12/20/17at 21:16 ; Start 12/17/17 at 21:00; Stop 12/21/17 at 00:33; Status DC Insulin Glargine (Lantus) 26 units DAILYWBKFT SQ Last administered on at 08:00; Start 12/18/17 at 08:00; Stop 12/21/17 at 00:33; Status DC Non-Formulary Medication (Levofloxacin (Levaquin)) 1 tab DAILY06 PO ; Start 06/27 at 06:00; Status UNV Magnesium Oxide (Magnesium Oxide) 400 mg DAILY PO Last administered on at 07:55; Start 12/18/17 at 09:00; Stop 12/21/17 at 00:33; Status DC Multivitamins/ Calcium (Thera-M Plus) 1 tab DAILY PO Last administered on 07:55; Start 12/18/17 at 09:00; Stop 12/21/17 at 00:33; Status DC Pioglitazone HCl (Actos) 30 mg DAILY PO Last administered on 12/20/17at 07:53; Start 12/18/17 at 09:00; Stop 12/21/17 at 00:33; Status DC Polyethylene Glycol (miraLAX) 17 gm DAILY PO Last administered on 12/20/17at 07: 56; Start 12/18/17 at 09:00; Stop 12/21/17 at 00:33; Status DC Potassium Chloride (Klor-Con) 10 meq DAILYWBKFT PO Last administered on at 07:53; Start 12/18/17 at 08:00; Stop 12/21/17 at 00:33; Status DC Sennosides (Senna) 8.6 mg BID PO Last administered on 12/20/17at 21:12; Start at 21:00; Stop 12/21/17 at 00:33; Status DC Simethicone (Gas-X) 120 mg TID PO Last administered on 12/20/17 21:13; Start 12/17/17 at 14:00; Stop 12/21/17 at 00:33; Status DC Trazodone HCl (Desyrel) 12.5 mg TID@0900,1300,1700 PO Last administered on 12/20at 17:37; Start 12/17/17 at 13:00; Stop 12/21/17 at 00:33; Status DC Sodium Chloride 1,000 ml @ 100 mls/hr Q10H IV Last administered on 12/18/17at 07:20; Start 12/17/17 at 11:20; Stop 12/18/17 at 12:47; Status DC Ondansetron HCl (Zofran) 4 mg PRN Q8HRS PRN IV NAUSEA/VOMITING; Start 12/17/17 at 11:30; Stop 12/21/17 at 00:33; Status DC Albuterol/ Ipratropium (Duoneb) 3 ml RTQID NEB Last administered on 12/20/17at 20:19; Start 12/17/17 at 12:00; Stop 12/21/17 at 00:33; Status DC Meropenem 1 gm/ Sodium Chloride 100 ml @ 200 mls/hr Q12H IV Last administered on 12/20/17at 11:46; Start 12/17/17 at 12:00; Stop 12/21/17 at 00:33; Status DC Linezolid 300 ml @ 300 mls/hr Q12H IV Last administered on 12/20/17at 12:11; Start 12/17/17 at 13:00; Stop 12/21/17 at 00:33; Status DC Fluticasone Propionate (Flonase) 2 spray PRN DAILY PRN NS ALLERGIES; Start 05/27 at 12:01; Stop 12/21/17 at 00:33; Status DC Haloperidol (Haldol) 15 mg 1X ONCE PO Last administered on 12/17/17at 12:22; Start 12/17/17 at 12:15; Stop 12/17/17 at 12:16; Status DC Aripiprazole (Abilify) 10 mg 1X ONCE PO Last administered on 12/17/17at 12:23; Start 12/17/17 at 12:15; Stop 12/17/17 at 12:16; Status DC Insulin Human Lispro (HumaLOG) 4 units DAILYWBKFT SQ ; Start 12/19/17 at 08:00; Status Cancel Insulin Human Lispro (HumaLOG) 8 units DAILYBFRLUN SQ Last administered on 12/20at 11:47; Start 12/18/17 at 11:30; Stop 12/21/17 at 00:33; Status DC Insulin Human Lispro (HumaLOG) 10 units DAILYBFRSUP SQ Last administered on 07/27at 17:41; Start 12/18/17 at 12:00; Stop 12/21/17 at 00:33; Status DC Insulin Human Lispro (HumaLOG) 4 units DAILYWBKFT SQ Last administered on at 07:59; Start 12/18/17 at 08:00; Stop 12/21/17 at 00:33; Status DC Heparin Sodium (Porcine) (Heparin Sq) 5,000 unit Q12HR SQ Last administered on 12/20/17at 21:16; Start 12/19/17 at 11:15; Stop 12/21/17 at 00:33; Status DC Olanzapine (ZyPREXA ZYDIS) 5 mg PRN Q2HR PRN PO PSYCHOSIS Last administered on 12/20/17at 07:53; Start 12/19/17 at 20:15; Stop 12/21/17 at 00:33; Status DC Active Scripts Active Reported Duoneb 0.5-3(2.5) Mg/3 Ml (Albuterol/Ipratropium) 3 Ml Ampul.neb 3 Ml NEB RTQID Trazodone Hcl 50 Mg Tablet 12.5 Mg PO TID@0900,1300,1700 Fluvoxamine Maleate 50 Mg Tablet 50 Mg PO QHS Clozaril (Clozapine) 25 Mg Tablet 75 Mg PO QHS Miralax (Polyethylene Glycol 3350) 17 Gm Powd.pack 1 Packet PO DAILY Zyprexa Zydis (Olanzapine) 5 Mg Tab.rapdis 5 Mg PO PRN Q2HR PRN Depakote Er (Divalproex Sodium) 500 Mg Tab.er.24h 1,500 Tab PO QHS Culturelle (Lactobacillus Rhamnosus Gg) 1 Each Cap.sprink 1 Each PO BID Multi Vitamin Daily (Multivitamin) 1 Each Tablet 1 Tab PO DAILY Simethicone 125 Mg Capsule 120 Mg PO TID Senna Lax (Sennosides) 8.6 Mg Tablet 8.6 Mg PO BID Potassium Chloride 10 Meq Tablet.er 10 Meq PO DAILYWBKFT Actos (Pioglitazone Hcl) 30 Mg Tablet 30 Mg PO DAILY Pepcid (Famotidine) 20 Mg Tablet 20 Mg PO BID Novolog Flexpen (Insulin Aspart) 100 Unit/1 Ml Insuln.pen 8 Units SQ DAILYBFRLUN Novolog Flexpen (Insulin Aspart) 100 Unit/1 Ml Insuln.pen 4 Units SQ DAILYWBKFT Novolog Flexpen (Insulin Aspart) 100 Unit/1 Ml Insuln.pen 10 Unit SQ DAILYBFRSUP Mapap (Acetaminophen) 500 Mg Tablet 500 Mg PO PRN Q6HRS PRN Magnesium Oxide 400 Mg Tablet 400 Mg PO DAILY Lisinopril 20 Mg Tablet 20 Mg PO DAILY Levemir Flextouch (Insulin Detemir) 100 Unit/1 Ml Insuln.pen 26 Units SQ DAILYWBKFT Levemir Flextouch (Insulin Detemir) 100 Unit/1 Ml Insuln.pen 16 Units SQ HS Lasix (Furosemide) 40 Mg Tablet 40 Mg PO DAILY Haloperidol 10 Mg Tablet 15 Mg PO BID Haloperidol Lactate 5 Mg/1 Ml Vial 5 Mg IM PRN Q4HRS PRN Gemfibrozil 600 Mg Tablet 600 Mg PO BID Gabapentin 300 Mg Capsule 300 Mg PO TID Flonase Allergy Relief (Fluticasone Propionate) 9.9 Ml [place].susp 2 Sprays NS PRN PRN Docusate Sodium 100 Mg Capsule 100 Mg PO DAILY Docusate Sodium 100 Mg Capsule 100 Mg PO PRN DAILY PRN Clonidine Hcl 0.1 Mg Tablet 0.1 Mg PO HS Cetirizine Hcl 10 Mg Tablet 10 Mg PO DAILY Aspirin Ec (Aspirin) 81 Mg Tablet.dr 81 Mg PO DAILYWBKFT Amlodipine Besylate 10 Mg Tablet 10 Mg PO DAILY Abilify (Aripiprazole) 15 Mg Tablet 10 Mg PO BID Activity: as tolerated Diet: Consistent Carbohydrate Follow-up Plan F/u with PCP after d/c from [facility] unit TRA HERRMANN MD December 21, 2017 01:00
== END 2017-12-20 22:30 | DRG 193 ==
LOC: ICU 10:45
PROVIDERS: ADMIT Internal Medicine; ATTEND Internal Medicine
DX: J18.9 Pneumonia, unspecified organism (principal); J96.01 Acute respiratory failure with hypoxia; K31.84 Gastroparesis; E66.01 Morbid (severe) obesity due to excess calories; E11.22 Type 2 diabetes mellitus with diabetic chronic kidney disease; E11.43 Type 2 diabetes mellitus with diabetic autonomic (poly)neuropathy; F25.0 Schizoaffective disorder, bipolar type; R45.851 Suicidal ideations; Z68.41 Body mass index [BMI] 40.0-44.9, adult; N18.3 Chronic kidney disease, stage 3 (moderate); E78.5 Hyperlipidemia, unspecified; I12.9 Hypertensive chronic kidney disease with stage 1 through stage 4 chronic kidney disease, or unspecified chronic kidney disease; F60.3 Borderline personality disorder; E04.9 Nontoxic goiter, unspecified; F41.9 Anxiety disorder, unspecified; G25.2 Other specified forms of tremor; G47.00 Insomnia, unspecified; K59.09 Other constipation; L64.9 Androgenic alopecia, unspecified; Y95 Nosocomial condition; Z79.4 Long term (current) use of insulin; Z79.82 Long term (current) use of aspirin; Z79.899 Other long term (current) drug therapy; Z91.19 Patient's noncompliance with other medical treatment and regimen; Z88.0 Allergy status to penicillin; Z88.8 Allergy status to other drugs, medicaments and biological substances
CPT/HCPCS: 36415; 36600; 71045; 71046; 78579; 80048; 80053; 81001; 82140; 82803; 82947; 83605; 83735; 85007; 85025; 85610; 87040; 87086; 87641; 94640; A9540; A9558; J1630; J2020; J2185; J7620; J7030

== ENCOUNTER 2017-12-20 23:09 | Inpatient (IN) | payer MEDICARE, MEDICAID ==
[~2017-12-20] VITALS: Ht 149.9 cm; Wt 99.5 kg
[2017-12-20 23:29] VITALS: BP 120/55
[2017-12-20] MEDS ORDERED: MAGNESIUM HYDROXIDE 2,400 MG/30 ML ORAL.SUSP. PO PRN (23:30)
[2017-12-20] MEDS ORDERED: ACETAMINOPHEN 325 MG TABLET PO PRN (23:30)
[2017-12-20] MEDS ORDERED: METHYL SALICYLATE/MENTHOL TOPICAL OINTMENT 29GM TUBE. TP PRN (23:30)
[2017-12-20] MEDS ORDERED: MAG HYDROX/AL HYDROX/SIMETH 30 ML ORAL.SUSP PO PRN (23:30)
[2017-12-21] MEDS ORDERED: IPRA3AMP NEB (00:41)
[2017-12-21] MEDS ORDERED: HALOPERIDOL LACT 5 MG/ML VIAL. IM PRN (01:00)
[2017-12-21 05:50] VITALS: BP 120/53
[2017-12-21 08:37] LABS: BASO % 1 % (0-3); EOS # 0.5 x10^3/uL (0.0-0.7); EOS % 8 % (0-3); HEMATOCRIT 35.2 % (36.0-47.0); HEMOGLOBIN 11.3 g/dL (12.0-15.5); LYMPH # 2.3 x10^3/uL (1.0-4.8); LYMPH % 38 % (24-48); MEAN CORPUSCULAR HEMOGLOBIN 27 pg (25-35); MEAN CORPUSCULAR HGB CONC 32 g/dL (31-37); MEAN CORPUSCULAR VOLUME 85 fL (79-100); MONO # 0.6 x10^3/uL (0.0-1.1); MONO % 10 % (0-9); NEUT # 2.6 x10^3uL (1.8-7.7); NEUT % 44 % (31-73); PLATELET COUNT 270 x10^3/uL (140-400); RED BLOOD COUNT 4.16 x10^6/uL (3.50-5.40); RED CELL DISTRIBUTION WIDTH 16.5 % (11.5-14.5); WHITE BLOOD COUNT 6.1 x10^3/uL (4.0-11.0)
[2017-12-21 09:08] LABS: ALBUMIN/GLOBULIN RATIO 0.7 (1.0-1.7); CREATININE 2.5 mg/dL (0.6-1.0); GFR 24.7; MAGNESIUM 2.2 mg/dL (1.8-2.4); POTASSIUM 4.3 mmol/L (3.5-5.1); TOTAL BILIRUBIN 0.2 mg/dL (0.2-1.0); TOTAL PROTEIN 7.2 g/dL (6.4-8.2)
[2017-12-21 09:09] LABS: VAL ACID 25 mcg/mL (50-100)
[2017-12-21] MEDS ORDERED: FLUTICASONE 50MCG/NASAL SPRAY 16GM BOTTLE. NS PRN (09:30)
[2017-12-21] MEDS ORDERED: ACETAMINOPHEN 500 MG TABLET PO PRN (09:30)
[2017-12-21] MEDS: ARIPiprazole 10 MG TABLET PO SCH ×2 (09:49→20:35)
[2017-12-21] MEDS: HALOPERIDOL 5 MG TABLET PO SCH ×2 (09:49→20:35)
[2017-12-21] MEDS ORDERED: POLYETHYLENE GLYCOL 3350 17 GM PACKET. PO SCH (10:00)
[2017-12-21] MEDS ORDERED: DOCUSATE SODIUM 100 MG CAPSULE PO PRN (10:00)
[2017-12-21] MEDS: MULTIVITAMIN with MINERAL TABLET. PO SCH (10:08)
[2017-12-21] MEDS: PIOGLITAZONE 15 MG TABLET. PO SCH (10:09)
[2017-12-21] MEDS: MAGNESIUM OXIDE 400 MG TABLET PO SCH (10:09)
[2017-12-21] MEDS: SENNOSIDES 8.6 MG TABLET PO SCH ×2 (10:09→20:35)
[2017-12-21] MEDS: GABAPENTIN 300 MG CAPSULE. PO SCH ×3 (10:09→20:35)
[2017-12-21] MEDS: FUROSEMIDE 40 MG TABLET PO SCH (10:10)
[2017-12-21] MEDS: amLODIPine BESYLATE 10 MG TABLET PO SCH (10:10)
[2017-12-21] MEDS: LACTOBACILLUS RHAMNOSUS GG 1 CAPSULE. PO SCH ×2 (10:10→20:35)
[2017-12-21] MEDS: GEMFIBROZIL 600 MG TABLET. PO SCH ×2 (10:10→20:35)
[2017-12-21] MEDS: CETIRIZINE HCL 10 MG TABLET PO SCH (10:11)
[2017-12-21] MEDS: DOCUSATE SODIUM 100 MG CAPSULE PO SCH (10:11)
[2017-12-21] MEDS: SIMETHICONE 80 MG TAB.CHEW PO SCH ×3 (10:11→20:35)
[2017-12-21] MEDS: LISINOPRIL 20 MG TABLET PO SCH (10:12)
[2017-12-21] MEDS: FAMOTIDINE 20 MG TABLET PO SCH ×2 (10:12→20:35)
[2017-12-21] MEDS: traZODone 50 MG TABLET. PO SCH ×3 (10:15→17:08)
[2017-12-21] MEDS: INSULIN LISPRO 300 UNITS/3 ML INSULN.PEN. SQ SCH ×2 (13:26→17:11)
[2017-12-21] MEDS: IPRATRPIUM/ALBUTEROL 0.5/2.5MG 3 ML NEBU. NEB SCH ×4 (13:49→20:50)
[2017-12-21 14:44] LABS: THYROID STIM HORMONE (TSH) 2.369 uIU/mL (0.358-3.740)
[2017-12-21 15:54] VITALS: BP 154/98
[2017-12-21] MEDS: POLYVINYL ALCOHOL 1.4% OPHTH SOLUTION 15ML BOTTLE. OU PRN (17:36)
[2017-12-21 17:44] LABS: CLARITY,URINE CLEAR; COLOR,URINE STRAW
[2017-12-21 17:45] LABS: BACTERIA,URINE 0 /HPF (0-FEW); BILIRUBIN,URINE NEG (NEG); GLUCOSE,URINE 100 mg/dL (NEG); NITRITE,URINE NEG (NEG); SQUAMOUS EPITHELIAL CELL,UR MOD /LPF; UROBILINOGEN,URINE 0.2 mg/dL (0.2 mg/dL)
[2017-12-21] MEDS: DIVALPROEX ER 500 MG TAB.ER.24H PO SCH (20:39)
[2017-12-21] MEDS: cloNIDine HCL 0.1 MG TABLET PO SCH (20:39)
[2017-12-21] MEDS: INSULIN GLARGINE 300 UNITS/3 ML INSULN.PEN. SQ SCH (20:42)
--- NOTE | 2017-12-21 20:54 | PDOC ---
Exam Note: Tay Note: Please also refer to the separate dictated note~for this date of service dictated separately.~Patient seen individually. Discussed the patient with Nursing staff reviewed the chart.~Reviewed interim history and current functioning. Reviewed vital signs,~Labs/ Radiology~and current medications noted below. Continue current treatment with the changes noted in the dictated addendum note Assessment: Vital Signs: Vital Signs Date Time Temp Pulse Resp B/P (MAP) Pulse Ox O2 Delivery O2 Flow Rate FiO2 12/21/17 20:39 93 154/98 12/21/17 16:19 98 Room Air 12/21/17 15:54 97.1 16 Labs: Laboratory Tests Test 12/21/17 07:45 12/21/17 11:16 12/21/17 15:50 12/21/17 16:35 White Blood Count 6.1 x10^3/uL (4.0-11.0) Red Blood Count 4.16 x10^6/uL (3.50-5.40) Hemoglobin 11.3 g/dL (12.0-15.5) L Hematocrit 35.2 % (36.0-47.0) L Mean Corpuscular Volume 85 fL (79-100) Mean Corpuscular Hemoglobin 27 pg (25-35) Mean Corpuscular Hemoglobin Concent 32 g/dL (31-37) Red Cell Distribution Width 16.5 % (11.5-14.5) H Platelet Count 270 x10^3/uL (140-400) Neutrophils (%) (Auto) 44 % (31-73) Lymphocytes (%) (Auto) 38 % (24-48) Monocytes (%) (Auto) 10 % (0-9) H Eosinophils (%) (Auto) 8 % (0-3) H Basophils (%) (Auto) 1 % (0-3) Neutrophils # (Auto) 2.6 x10^3uL (1.8-7.7) Lymphocytes # (Auto) 2.3 x10^3/uL (1.0-4.8) Monocytes # (Auto) 0.6 x10^3/uL (0.0-1.1) Eosinophils # (Auto) 0.5 x10^3/uL (0.0-0.7) Basophils # (Auto) 0.0 x10^3/uL (0.0-0.2) Sodium Level 146 mmol/L (136-145) H Potassium Level 4.3 mmol/L (3.5-5.1) Chloride Level 104 mmol/L (98-107) Carbon Dioxide Level 34 mmol/L (21-32) H Anion Gap 8 (6-14) Blood Urea Nitrogen 31 mg/dL (7-20) H Creatinine 2.5 mg/dL (0.6-1.0) H Estimated GFR (Cockcroft-Gault) 24.7 BUN/Creatinine Ratio 12 (6-20) Glucose Level 143 mg/dL (70-99) H Calcium Level 9.0 mg/dL (8.5-10.1) Magnesium Level 2.2 mg/dL (1.8-2.4) Iron Level 124 ug/dL (50-170) Total Iron Binding Capacity 448 ug/dL (250-450) Iron Saturation 28 % (15-34) Total Bilirubin 0.2 mg/dL (0.2-1.0) Aspartate Amino Transferase (AST) 23 U/L (15-37) Alanine Aminotransferase (ALT) 21 U/L (14-59) Alkaline Phosphatase 169 U/L (46-116) H Total Protein 7.2 g/dL (6.4-8.2) Albumin 3.0 g/dL (3.4-5.0) L Albumin/Globulin Ratio 0.7 (1.0-1.7) L Triglycerides Level 112 mg/dL (0-150) Cholesterol Level 199 mg/dL (0-200) LDL Cholesterol, Calculated 117 mg/dL (0-100) H VLDL Cholesterol, Calculated 22 mg/dL (0-40) Non-HDL Cholesterol Calculated 139 mg/dL (0-129) H HDL Cholesterol 60 mg/dL (40-60) Cholesterol/HDL Ratio 3.0 Vitamin B12 Level 1193 pg/mL (247-911) H 25-Hydroxy Vitamin D Total 31.0 ng/mL (30-100) Thyroid Stimulating Hormone (TSH) 2.369 uIU/mL (0.358-3.740) Valproic Acid Level 25 mcg/mL (50-100) L Valproic Acid Last Dose Date 12/20/17 Valproic Acid Last Dose Time 2100 Glucose (Fingerstick) 224 mg/dL (70-99) H 191 mg/dL (70-99) H Urine Collection Type Unknown Urine Color Straw Urine Clarity Clear Urine pH 7.5 Urine Specific [place] 1.015 Urine Protein 30 mg/dl (NEG-TRACE) Urine Glucose (UA) 100 mg/dL (NEG) Urine Ketones (Stick) Neg mg/dL (NEG) Urine Blood Small (NEG) Urine Nitrite Neg (NEG) Urine Bilirubin Neg (NEG) Urine Urobilinogen Dipstick 0.2 mg/dL (0.2 mg/dL) Urine Leukocyte Esterase Trace (NEG) Urine RBC 3-5 /HPF (0-2) Urine WBC 1-4 /HPF (0-4) Urine Squamous Epithelial Cells Mod /LPF Urine Transitional Epithelial Cells Few /LPF Urine Bacteria 0 /HPF (0-FEW) Test 12/21/17 19:07 Glucose (Fingerstick) 225 mg/dL (70-99) H Current Medications: Meds: Current Medications Acetaminophen (Tylenol) 650 mg PRN Q6HRS PRN PO PAIN / TEMP; Start 12/20/17 at 23:30; Status Cancel Multi-Ingredient Ointment (Analgesic [place]) 1 caridad PRN QID PRN TP MUSCLE PAIN; Start 12/20/17 at 23:30 Al Hydroxide/Mg Hydroxide (Mylanta Plus Xs) 15 ml PRN AFTMEALHC PRN PO DYSPEPSIA; Start 12/20/17 at 23:30 Magnesium Hydroxide (Milk Of Magnesia) 2,400 mg PRN QHS PRN PO CONSTIPATION; Start 12/20/17 at 23:30 Olanzapine (ZyPREXA ZYDIS) 5 mg PRN Q2HR PRN PO PSYCHOSIS; Start 12/21/17 at 01 :00 Aripiprazole (Abilify) 10 mg BID PO Last administered on 12/21/17at 20:35; Start 12/21/17 at 09:00 Clozapine (Clozaril) 75 mg QHS PO Last administered on 12/21/17at 20:40; Start 12/21/17 at 21:00 Divalproex Sodium (Depakote Er) 1,500 mg QHS PO Last administered on 12/21/17at 20:39; Start 12/21/17 at 21:00 Fluvoxamine Maleate (Luvox) 50 mg QHS PO Last administered on 12/21/17at 20:41; Start 12/21/17 at 21:00 Haloperidol (Haldol) 15 mg BID PO Last administered on 12/21/17at 20:35; Start 12/21/17 at 09:00 Haloperidol Lactate (Haldol) 5 mg PRN Q4HRS PRN IM AGITATION; Start 12/21/17 at 01:00; Stop 12/21/17 at 01:43; Status DC Clonidine HCl (Catapres) 0.1 mg HS PO Last administered on 12/21/17at 20:39; Start 12/21/17 at 21:00 Gabapentin (Neurontin) 300 mg TID PO Last administered on 12/21/17at 20:35; Start 12/21/17 at 10:00 Insulin Human Lispro (HumaLOG) 4 units DAILYWBKFT SQ ; Start 12/22/17 at 08:00 Insulin Human Lispro (HumaLOG) 8 units DAILYBFRLUN SQ Last administered on 12/21at 13:26; Start 12/21/17 at 11:30 Insulin Human Lispro (HumaLOG) 10 units DAILYBFRSUP SQ Last administered on at 17:11; Start 12/21/17 at 17:00 Albuterol/ Ipratropium (Duoneb) 3 ml RTQID NEB Last administered on 12/21/17at 16:19; Start 12/21/17 at 12:00 Lactobacillus Rhamnosus (Culturelle) 1 cap BID PO Last administered on at 20:35; Start 12/21/17 at 10:00 Lisinopril (Prinivil) 20 mg DAILY PO Last administered on 12/21/17at 10:12; Start 12/21/17 at 10:00 Acetaminophen (Tylenol) 500 mg PRN Q6HRS PRN PO PAIN; Start 12/21/17 at 09:30 Amlodipine Besylate (Norvasc) 10 mg DAILY PO Last administered on 12/21/17at 10: 10; Start 12/21/17 at 10:00 Cetirizine HCl (ZyrTEC) 10 mg DAILY PO Last administered on 12/21/17 10:11; Start 12/21/17 at 10:00 Docusate Sodium (Colace) 100 mg DAILY PO Last administered on 12/21/17at 10:11; Start 12/21/17 at 10:00 Docusate Sodium (Colace) 100 mg PRN DAILY PRN PO CONSTIPATION; Start 12/21/17 at 10:00 Famotidine (Pepcid) 20 mg BID PO Last administered on 12/21/17at 20:35; Start at 10:00 Fluticasone Propionate (Flonase) 2 spray PRN DAILY PRN NS ALLERGIES; Start at 09:30 Furosemide (Lasix) 40 mg DAILY PO Last administered on 12/21/17at 10:10; Start 12/21/17 at 10:00 Gemfibrozil (Lopid) 600 mg BID PO Last administered on 12/21/17 20:35; Start 12/21/17 at 10:00 Insulin Glargine (Lantus) 16 units HS SQ Last administered on 12/21/17at 20:42; Start 12/21/17 at 21:00 Insulin Glargine (Lantus) 26 units DAILYWBKFT SQ ; Start 12/22/17 at 08:00 Magnesium Oxide (Magnesium Oxide) 400 mg DAILY PO Last administered on at 10:09; Start 12/21/17 at 10:00 Multivitamins/ Calcium (Thera-M Plus) 1 tab DAILY PO Last administered on at 10:08; Start 12/21/17 at 10:00 Pioglitazone HCl (Actos) 30 mg DAILY PO Last administered on 12/21/17at 10:09; Start 12/21/17 at 10:00 Polyethylene Glycol (miraLAX) 1 gm DAILY PO Last administered on 12/21/17at 10: 12; Start 12/21/17 at 10:00 Potassium Chloride (Klor-Con) 10 meq DAILYWBKFT PO ; Start 12/22/17 at 10:00 Sennosides (Senna) 8.6 mg BID PO Last administered on 12/21/17 20:35; Start at 10:00 Simethicone (Gas-X) 120 mg TID PO Last administered on 12/21/17at 20:35; Start 12/21/17 at 10:00 Trazodone HCl (Desyrel) 12.5 mg TID@0900,1300,1700 PO Last administered on 12/21at 17:08; Start 12/21/17 at 10:00 Artificial Tears (Artificial Tears) 1 drop PRN Q15MIN PRN OU DRY EYE Last administered on 12/21/17at 17:36; Start 12/21/17 at 16:00 Active Scripts Active Reported Duoneb 0.5-3(2.5) Mg/3 Ml (Albuterol/Ipratropium) 3 Ml Ampul.neb 3 Ml NEB RTQID Trazodone Hcl 50 Mg Tablet 12.5 Mg PO TID@0900,1300,1700 Fluvoxamine Maleate 50 Mg Tablet 50 Mg PO QHS Clozaril (Clozapine) 25 Mg Tablet 75 Mg PO QHS Miralax (Polyethylene Glycol 3350) 17 Gm Powd.pack 1 Packet PO DAILY Zyprexa Zydis (Olanzapine) 5 Mg Tab.rapdis 5 Mg PO PRN Q2HR PRN Depakote Er (Divalproex Sodium) 500 Mg Tab.er.24h 1,500 Tab PO QHS Culturelle (Lactobacillus Rhamnosus Gg) 1 Each Cap.sprink 1 Each PO BID Multi Vitamin Daily (Multivitamin) 1 Each Tablet 1 Tab PO DAILY Simethicone 125 Mg Capsule 120 Mg PO TID Senna Lax (Sennosides) 8.6 Mg Tablet 8.6 Mg PO BID Potassium Chloride 10 Meq Tablet.er 10 Meq PO DAILYWBKFT Actos (Pioglitazone Hcl) 30 Mg Tablet 30 Mg PO DAILY Pepcid (Famotidine) 20 Mg Tablet 20 Mg PO BID Novolog Flexpen (Insulin Aspart) 100 Unit/1 Ml Insuln.pen 8 Units SQ DAILYBFRLUN Novolog Flexpen (Insulin Aspart) 100 Unit/1 Ml Insuln.pen 4 Units SQ DAILYWBKFT Novolog Flexpen (Insulin Aspart) 100 Unit/1 Ml Insuln.pen 10 Unit SQ DAILYBFRSUP Mapap (Acetaminophen) 500 Mg Tablet 500 Mg PO PRN Q6HRS PRN Magnesium Oxide 400 Mg Tablet 400 Mg PO DAILY Lisinopril 20 Mg Tablet 20 Mg PO DAILY Levemir Flextouch (Insulin Detemir) 100 Unit/1 Ml Insuln.pen 26 Units SQ DAILYWBKFT Levemir Flextouch (Insulin Detemir) 100 Unit/1 Ml Insuln.pen 16 Units SQ HS Lasix (Furosemide) 40 Mg Tablet 40 Mg PO DAILY Haloperidol 10 Mg Tablet 15 Mg PO BID Haloperidol Lactate 5 Mg/1 Ml Vial 5 Mg IM PRN Q4HRS PRN Gemfibrozil 600 Mg Tablet 600 Mg PO BID Gabapentin 300 Mg Capsule 300 Mg PO TID Flonase Allergy Relief (Fluticasone Propionate) 9.9 Ml [place].susp 2 Sprays NS PRN PRN Docusate Sodium 100 Mg Capsule 100 Mg PO DAILY Docusate Sodium 100 Mg Capsule 100 Mg PO PRN DAILY PRN Clonidine Hcl 0.1 Mg Tablet 0.1 Mg PO HS Cetirizine Hcl 10 Mg Tablet 10 Mg PO DAILY Aspirin Ec (Aspirin) 81 Mg Tablet.dr 81 Mg PO DAILYWBKFT Amlodipine Besylate 10 Mg Tablet 10 Mg PO DAILY Abilify (Aripiprazole) 15 Mg Tablet 10 Mg PO BID I have reviewed the current psychotropics carefully including drug interactions. Risk benefit ratio favors no change other than as noted in my dictated progress note. Diagnosis: Problems: (1) Anxiety disorder (2) Bipolar affective, mixed, sev w/ psych (3) Schizoaffective disorder, chronic condition with acute exacerbation (4) Schizophrenia, disorganized, subchronic with acute exacerbation JASS HUNG MD December 21, 2017 20:54
[2017-12-21] MEDS ORDERED: cloZAPine 25 MG TABLET PO SCH (21:00)
[2017-12-21 21:12] LABS: T3 TOTAL 87 ng/dL (71-180); THYROXINE 5.8 ug/dL (4.5-12.0)
--- NOTE | 2017-12-21 22:34 | HP ---
ADMIT DATE: 12/20/2017 PSYCHIATRIC ADMISSION HISTORY/EVALUATION This note covers the elements not covered in my initial note of ____. IDENTIFYING DATA: The patient is a 52-year-old Afro-[place] female returns back to us from the ICU per Dr. Bolton after she was medically stabilized for her hospital-acquired pneumonia. She was on our unit at that time being stabilized for an acute exacerbation of her schizophrenia, chronic, undifferentiated versus schizoaffective disorder, bipolar type, mixed with psychotic features. I had seen her in the ICU. She was actively psychotic, hallucinating, believes she was having a baby, holding the baby up in front of her. All of that seemed to stabilized as the pneumonia resolved and psychotropics were adjusted. She is still psychotic and needed further inpatient psychiatric stabilization resulting in the referral back to us. CHIEF COMPLAINT: "I am okay. I need to leave because I need to make my appointments." HISTORY OF PRESENT ILLNESS: The patient has a history of schizoaffective disorder, bipolar type. She has been residing at the residential, became extremely psychotic with an acute exacerbation, referred to us, was medically stabilized in the ER and then admitted on our unit. She had been on multiple antipsychotics in the past and this was changed to Clozaril increasing to 75 mg a day. She was showing some response from a psychiatric standpoint, then developed a hospital-acquired pneumonia resulting in the transfer down to the ICU. Rest is as noted above. PAST PSYCHIATRIC HISTORY: As above. PAST MEDICAL HISTORY: Positive for hospital-acquired pneumonia, type 2 diabetes mellitus, cellulitis, chronic kidney disease stage 3, hyperlipidemia, neuropathy, Accu-Cheks a.c. and at bedtime. ALLERGIES: PENICILLIN, KLOR-CON, but she has been getting potassium supplements with no adverse effect. DIET: Regular. Takes her medications whole; up with walker. CURRENT PSYCHOTROPICS: EMRAD was reviewed including Clozaril 75 mg at bedtime and we will check CBC, absolute neutrophil counts every week on Thursday. FAMILY HISTORY: Noncontributory. SOCIAL HISTORY: No alcohol, drug abuse, physical, sexual or elder abuse history is noted. Not known to be a perpetrator. MENTAL STATUS EXAMINATION: The patient was seen individually evening of 12/21/2017. She is oriented to herself and situation, somewhat obsessive, anxious, but not frequently back at the nursing station like she was during her last hospitalization. Insight limited, judgment marginal, language function intact, still somewhat paranoid, but no active hallucinations noted. No suicidal or homicidal ideation. IMPRESSION: Schizoaffective disorder, bipolar type, mixed with psychotic features with acute exacerbation; anxiety disorder, unspecified; obsessive-compulsive disorder, impulse control disorder, unspecified. Rest as above. PLAN: Admit to Geropsychiatry Unit at [facility]. I will see the patient daily individually from a psychiatric standpoint, medical followup per Dr. Bishop/Dr. Bolton, continue current psychotropics, follow labs. May need to increase Clozaril. ESTIMATED LENGTH OF STAY: 7-10 days. DISPOSITION: The discharge will be back to the residential. MAN Prosper HUNG MD DR: KATIANA/nts JOB#: [id number] / [id number]
[2017-12-22 03:12] LABS: HEMOGLOBIN A1C 8.5 % (4.8-5.6)
[2017-12-22] MEDS: IPRATRPIUM/ALBUTEROL 0.5/2.5MG 3 ML NEBU. NEB SCH ×3 (04:30→15:15)
[2017-12-22 06:22] VITALS: BP 133/76
[2017-12-22 08:11] LABS: BASO % 1 % (0-3); EOS # 0.4 x10^3/uL (0.0-0.7); EOS % 7 % (0-3); HEMATOCRIT 34.2 % (36.0-47.0); HEMOGLOBIN 10.9 g/dL (12.0-15.5); LYMPH # 2.1 x10^3/uL (1.0-4.8); LYMPH % 38 % (24-48); MEAN CORPUSCULAR HEMOGLOBIN 27 pg (25-35); MEAN CORPUSCULAR HGB CONC 32 g/dL (31-37); MEAN CORPUSCULAR VOLUME 85 fL (79-100); MONO # 0.6 x10^3/uL (0.0-1.1); MONO % 11 % (0-9); NEUT # 2.4 x10^3uL (1.8-7.7); NEUT % 44 % (31-73); PLATELET COUNT 245 x10^3/uL (140-400); RED BLOOD COUNT 4.02 x10^6/uL (3.50-5.40); RED CELL DISTRIBUTION WIDTH 16.2 % (11.5-14.5); WHITE BLOOD COUNT 5.5 x10^3/uL (4.0-11.0)
[2017-12-22] MEDS: HALOPERIDOL 5 MG TABLET PO SCH ×2 (08:53→20:50)
[2017-12-22] MEDS: PIOGLITAZONE 15 MG TABLET. PO SCH (08:54)
[2017-12-22] MEDS: FAMOTIDINE 20 MG TABLET PO SCH ×2 (08:54→20:50)
[2017-12-22] MEDS: DOCUSATE SODIUM 100 MG CAPSULE PO SCH (08:54)
[2017-12-22] MEDS: amLODIPine BESYLATE 10 MG TABLET PO SCH (08:54)
[2017-12-22] MEDS: MAGNESIUM OXIDE 400 MG TABLET PO SCH (08:54)
[2017-12-22] MEDS: GEMFIBROZIL 600 MG TABLET. PO SCH ×2 (08:54→20:50)
[2017-12-22] MEDS: LACTOBACILLUS RHAMNOSUS GG 1 CAPSULE. PO SCH ×2 (08:54→20:50)
[2017-12-22] MEDS: ARIPiprazole 10 MG TABLET PO SCH ×2 (08:54→20:48)
[2017-12-22] MEDS: GABAPENTIN 300 MG CAPSULE. PO SCH ×3 (08:55→20:50)
[2017-12-22] MEDS: traZODone 50 MG TABLET. PO SCH ×3 (08:55→17:02)
[2017-12-22] MEDS: SENNOSIDES 8.6 MG TABLET PO SCH ×2 (08:55→20:50)
[2017-12-22] MEDS: SIMETHICONE 80 MG TAB.CHEW PO SCH ×3 (08:55→20:50)
[2017-12-22] MEDS: FUROSEMIDE 40 MG TABLET PO SCH (08:56)
[2017-12-22] MEDS: CETIRIZINE HCL 10 MG TABLET PO SCH (08:56)
[2017-12-22] MEDS: MULTIVITAMIN with MINERAL TABLET. PO SCH (08:56)
[2017-12-22] MEDS: LISINOPRIL 20 MG TABLET PO SCH (08:56)
[2017-12-22] MEDS: INSULIN LISPRO 300 UNITS/3 ML INSULN.PEN. SQ SCH ×3 (08:59→17:04)
[2017-12-22] MEDS: INSULIN GLARGINE 300 UNITS/3 ML INSULN.PEN. SQ SCH ×2 (09:00→20:53)
--- NOTE | 2017-12-22 09:32 | CONS ---
DATE OF CONSULTATION: 12/21/2017 REASON FOR CONSULTATION: Medical management. HISTORY OF PRESENT ILLNESS: This is a 52-year-old -[place] female patient who was transferred to ICU as she was noted to be hypoxic, had recurrent bouts of cough and chest x-ray showed that she has bilateral lower lobe infiltrate and was admitted with possible healthcare-associated pneumonia. She was treated with IV vancomycin as well as Zosyn and levofloxacin. Apparently did well and was transferred back to [facility] for inpatient psychiatric stabilization as she continued to be paranoid on a background of schizophrenia which is chronic undifferentiated with acute exacerbation. PAST MEDICAL HISTORY: Significant for type 2 diabetes, chronic kidney disease stage 3 due to diabetic nephropathy. She has visual field defects, androgenic alopecia, goiter, hyperlipidemia, chronic constipation, hypomagnesemia, gastroparesis, allergic rhinitis and herpes viral infection. PAST PSYCHIATRIC HISTORY: Significant for schizophrenia, chronic, undifferentiated, she has also borderline personality. PAST SURGICAL HISTORY: Significant for tubal ligation as well as what she claims to be treatment for some kind of congenital heart disease. ALLERGIES: She is allergic to PENICILLIN AND POTASSIUM. MEDICATIONS: She is currently on the following medications: She is on cetirizine 10 mg once a day, ipratropium bromide and albuterol sulfate 3 mL 4 times a day, gemfibrozil 600 mg twice a day, clonidine 0.1 mg at bedtime, amlodipine besylate 10 mg once a day, lisinopril 20 mg once a day, aspirin 81 mg once a day, Tylenol 650 mg. She is divalproex 1500 mg at bedtime, gabapentin 300 mg 3 times a day, fluvoxamine 50 mg at bedtime, trazodone 12.5 mg 3 times a day, aripiprazole 10 mg b.i.d., clozapine 75 mg at bedtime, haloperidol 50 mg twice a day, haloperidol lactate 5 mg in 1 mL intramuscular every 4 hours, olanzapine 5 mg every 2 hours, potassium chloride 10 mEq daily, furosemide 40 mg daily, Flonase 2 sprays to each nostril daily, magnesium oxide 400 mg daily, and simethicone 120 mg 3 times a day, docusate sodium 100 mg daily ____ scheduled, polyethylene glycol 17 grams daily, Senna-S 1 twice a day, Lactobacillus rhamnosus 1 twice a day, NovoLog insulin 10 units before meals and NovoLog insulin 4 units before breakfast and NovoLog insulin 8 units before lunch. She is on Levemir 26 units at bedtime, Actos 30 mg daily, multivitamin 1 tablet once a day. PHYSICAL EXAMINATION: GENERAL: On examining her, she looked well and was clearly in no apparent respiratory distress, slightly pale, but no jaundice, cyanosis or thyromegaly. No jugular venous distension. No limb edema. VITAL SIGNS: Her heart rate was 79, blood pressure was 120/55, temperature was 98.2, respiratory rate 22, and oxygen saturation was 93% on room air. HEAD, EYES, EARS, NOSE AND THROAT: Showed normocephalic, atraumatic. NECK: Supple. HEART: Showed normal first and second heart sounds with no gallop, rub or murmur. CHEST: Clear to auscultation. No crepitation or rhonchi. ABDOMEN: Distended, soft, nontender. No guarding or rigidity. No organomegaly. All hernial orifices are intact. Bowel sounds normal. NEUROLOGIC: She is awake, alert, responding appropriately. All cranial nerves are intact. EXTREMITIES: She moves extremities without difficulty. She ambulates without assistance or assistive devices. LABORATORY DATA: Showed a white cell count of 6100, hemoglobin 11, hematocrit 35, MCV 85 and platelet count 270,000. Serum sodium was 146, potassium 4.3, chloride 104, bicarbonate 34, anion gap of 8, BUN 31, creatinine was 2.5, estimated GFR was 25 mL per minute. Her glucose 143, calcium was 9, magnesium 2.2. Total bilirubin, AST, ALT, alkaline phosphatase were normal. Total protein was 7.2, albumin was 3. ASSESSMENT: So this is basically a 52-year-old -[place] female patient who was admitted with an altered mental status and possible acute healthcare-associated pneumonia. She was treated with IV antibiotic and was transferred back to [facility] for inpatient psychiatric stabilization. Her vital signs and medical lab work have been reviewed and seemed to be all appropriate. Thank you, Dr. Caraballo for allowing me to participate in the care of this patient. RISA WICK MD DR: ISABELLA/alicia JOB#: [id number] / [id number]
[2017-12-22] MEDS: POTASSIUM CHLORIDE 10 MEQ TABLET.ER. PO SCH (10:10)
[2017-12-22] MEDS: POLYVINYL ALCOHOL 1.4% OPHTH SOLUTION 15ML BOTTLE. OU PRN (15:57)
[2017-12-22 16:35] VITALS: BP 163/73
--- NOTE | 2017-12-22 20:21 | PDOC ---
Exam Note: Tay Note: Please also refer to the separate dictated note~for this date of service dictated separately.~Patient seen individually. Discussed the patient with Nursing staff reviewed the chart.~Reviewed interim history and current functioning. Reviewed vital signs,~Labs/ Radiology~and current medications noted below. Continue current treatment with the changes noted in the dictated addendum note Assessment: Vital Signs: Vital Signs Date Time Temp Pulse Resp B/P (MAP) Pulse Ox O2 Delivery O2 Flow Rate FiO2 12/22/17 16:35 97.9 93 16 163/73 (103) 95 12/22/17 15:15 Room Air I&O Intake and Output 12/22/17 07:00 Intake Total 1440 ml Balance 1440 ml Intake Oral 1440 ml Labs: Laboratory Tests Test 12/22/17 07:29 12/22/17 07:46 12/22/17 11:28 12/22/17 16:25 White Blood Count 5.5 x10^3/uL (4.0-11.0) Red Blood Count 4.02 x10^6/uL (3.50-5.40) Hemoglobin 10.9 g/dL (12.0-15.5) L Hematocrit 34.2 % (36.0-47.0) L Mean Corpuscular Volume 85 fL (79-100) Mean Corpuscular Hemoglobin 27 pg (25-35) Mean Corpuscular Hemoglobin Concent 32 g/dL (31-37) Red Cell Distribution Width 16.2 % (11.5-14.5) H Platelet Count 245 x10^3/uL (140-400) Neutrophils (%) (Auto) 44 % (31-73) Lymphocytes (%) (Auto) 38 % (24-48) Monocytes (%) (Auto) 11 % (0-9) H Eosinophils (%) (Auto) 7 % (0-3) H Basophils (%) (Auto) 1 % (0-3) Neutrophils # (Auto) 2.4 x10^3uL (1.8-7.7) Lymphocytes # (Auto) 2.1 x10^3/uL (1.0-4.8) Monocytes # (Auto) 0.6 x10^3/uL (0.0-1.1) Eosinophils # (Auto) 0.4 x10^3/uL (0.0-0.7) Basophils # (Auto) 0.0 x10^3/uL (0.0-0.2) Glucose (Fingerstick) 144 mg/dL (70-99) H 350 mg/dL (70-99) H 262 mg/dL (70-99) H Test 12/22/17 19:09 Glucose (Fingerstick) 340 mg/dL (70-99) H Current Medications: Meds: Current Medications Acetaminophen (Tylenol) 650 mg PRN Q6HRS PRN PO PAIN / TEMP; Start 12/20/17 at 23:30; Status Cancel Multi-Ingredient Ointment (Analgesic [place]) 1 caridad PRN QID PRN TP MUSCLE PAIN; Start 12/20/17 at 23:30 Al Hydroxide/Mg Hydroxide (Mylanta Plus Xs) 15 ml PRN AFTMEALHC PRN PO DYSPEPSIA; Start 12/20/17 at 23:30 Magnesium Hydroxide (Milk Of Magnesia) 2,400 mg PRN QHS PRN PO CONSTIPATION; Start 12/20/17 at 23:30 Olanzapine (ZyPREXA ZYDIS) 5 mg PRN Q2HR PRN PO PSYCHOSIS; Start 12/21/17 at 01 :00 Aripiprazole (Abilify) 10 mg BID PO Last administered on 12/22/17at 08:54; Start 12/21/17 at 09:00 Clozapine (Clozaril) 75 mg QHS PO Last administered on 12/21/17at 20:40; Start 12/21/17 at 21:00; Stop 12/22/17 at 19:20; Status DC Divalproex Sodium (Depakote Er) 1,500 mg QHS PO Last administered on 12/21/17at 20:39; Start 12/21/17 at 21:00 Fluvoxamine Maleate (Luvox) 50 mg QHS PO Last administered on 12/21/17at 20:41; Start 12/21/17 at 21:00 Haloperidol (Haldol) 15 mg BID PO Last administered on 12/22/17at 08:53; Start 12/21/17 at 09:00 Haloperidol Lactate (Haldol) 5 mg PRN Q4HRS PRN IM AGITATION; Start 12/21/17 at 01:00; Stop 12/21/17 at 01:43; Status DC Clonidine HCl (Catapres) 0.1 mg HS PO Last administered on 12/21/17at 20:39; Start 12/21/17 at 21:00 Gabapentin (Neurontin) 300 mg TID PO Last administered on 12/22/17at 13:18; Start 12/21/17 at 10:00 Insulin Human Lispro (HumaLOG) 4 units DAILYWBKFT SQ Last administered on at 08:59; Start 12/22/17 at 08:00 Insulin Human Lispro (HumaLOG) 8 units DAILYBFRLUN SQ Last administered on 12/22 11:56; Start 12/21/17 at 11:30 Insulin Human Lispro (HumaLOG) 10 units DAILYBFRSUP SQ Last administered on 17:04; Start 12/21/17 at 17:00 Albuterol/ Ipratropium (Duoneb) 3 ml RTQID NEB Last administered on 12/22/17at 15:15; Start 12/21/17 at 12:00 Lactobacillus Rhamnosus (Culturelle) 1 cap BID PO Last administered on 08:54; Start 12/21/17 at 10:00 Lisinopril (Prinivil) 20 mg DAILY PO Last administered on 12/22/17 08:56; Start 12/21/17 at 10:00 Acetaminophen (Tylenol) 500 mg PRN Q6HRS PRN PO PAIN; Start 12/21/17 at 09:30 Amlodipine Besylate (Norvasc) 10 mg DAILY PO Last administered on 12/22/17at 08: 54; Start 12/21/17 at 10:00 Cetirizine HCl (ZyrTEC) 10 mg DAILY PO Last administered on 12/22/17 08:56; Start 12/21/17 at 10:00 Docusate Sodium (Colace) 100 mg DAILY PO Last administered on 12/22/17at 08:54; Start 12/21/17 at 10:00 Docusate Sodium (Colace) 100 mg PRN DAILY PRN PO CONSTIPATION; Start 12/21/17 at 10:00 Famotidine (Pepcid) 20 mg BID PO Last administered on 12/22/17at 08:54; Start at 10:00 Fluticasone Propionate (Flonase) 2 spray PRN DAILY PRN NS ALLERGIES; Start at 09:30 Furosemide (Lasix) 40 mg DAILY PO Last administered on 12/22/17 08:56; Start 12/21/17 at 10:00 Gemfibrozil (Lopid) 600 mg BID PO Last administered on 12/22/17 08:54; Start 12/21/17 at 10:00 Insulin Glargine (Lantus) 16 units HS SQ Last administered on 12/21/17at 20:42; Start 12/21/17 at 21:00 Insulin Glargine (Lantus) 26 units DAILYWBKFT SQ Last administered on 09:00; Start 12/22/17 at 08:00 Magnesium Oxide (Magnesium Oxide) 400 mg DAILY PO Last administered on 08:54; Start 12/21/17 at 10:00 Multivitamins/ Calcium (Thera-M Plus) 1 tab DAILY PO Last administered on 08:56; Start 12/21/17 at 10:00 Pioglitazone HCl (Actos) 30 mg DAILY PO Last administered on 12/22/17 08:54; Start 12/21/17 at 10:00 Polyethylene Glycol (miraLAX) 1 gm DAILY PO Last administered on 12/21/17at 10: 12; Start 12/21/17 at 10:00; Stop 12/22/17 at 09:12; Status DC Potassium Chloride (Klor-Con) 10 meq DAILYWBKFT PO Last administered on at 10:10; Start 12/22/17 at 10:00 Sennosides (Senna) 8.6 mg BID PO Last administered on 12/22/17 08:55; Start at 10:00 Simethicone (Gas-X) 120 mg TID PO Last administered on 12/22/17 13:18; Start 12/21/17 at 10:00 Trazodone HCl (Desyrel) 12.5 mg TID@0900,1300,1700 PO Last administered on 12/22at 17:02; Start 12/21/17 at 10:00 Artificial Tears (Artificial Tears) 1 drop PRN Q15MIN PRN OU DRY EYE Last administered on 12/22/17at 15:57; Start 12/21/17 at 16:00 Polyethylene Glycol (miraLAX) 17 gm DAILY PO ; Start 12/23/17 at 09:00 Clozapine (Clozaril) 100 mg QHS PO ; Start 12/22/17 at 21:00 Active Scripts Active Reported Duoneb 0.5-3(2.5) Mg/3 Ml (Albuterol/Ipratropium) 3 Ml Ampul.neb 3 Ml NEB RTQID Trazodone Hcl 50 Mg Tablet 12.5 Mg PO TID@0900,1300,1700 Fluvoxamine Maleate 50 Mg Tablet 50 Mg PO QHS Clozaril (Clozapine) 25 Mg Tablet 75 Mg PO QHS Miralax (Polyethylene Glycol 3350) 17 Gm Powd.pack 1 Packet PO DAILY Zyprexa Zydis (Olanzapine) 5 Mg Tab.rapdis 5 Mg PO PRN Q2HR PRN Depakote Er (Divalproex Sodium) 500 Mg Tab.er.24h 1,500 Tab PO QHS Culturelle (Lactobacillus Rhamnosus Gg) 1 Each Cap.sprink 1 Each PO BID Multi Vitamin Daily (Multivitamin) 1 Each Tablet 1 Tab PO DAILY Simethicone 125 Mg Capsule 120 Mg PO TID Senna Lax (Sennosides) 8.6 Mg Tablet 8.6 Mg PO BID Potassium Chloride 10 Meq Tablet.er 10 Meq PO DAILYWBKFT Actos (Pioglitazone Hcl) 30 Mg Tablet 30 Mg PO DAILY Pepcid (Famotidine) 20 Mg Tablet 20 Mg PO BID Novolog Flexpen (Insulin Aspart) 100 Unit/1 Ml Insuln.pen 8 Units SQ DAILYBFRLUN Novolog Flexpen (Insulin Aspart) 100 Unit/1 Ml Insuln.pen 4 Units SQ DAILYWBKFT Novolog Flexpen (Insulin Aspart) 100 Unit/1 Ml Insuln.pen 10 Unit SQ DAILYBFRSUP Mapap (Acetaminophen) 500 Mg Tablet 500 Mg PO PRN Q6HRS PRN Magnesium Oxide 400 Mg Tablet 400 Mg PO DAILY Lisinopril 20 Mg Tablet 20 Mg PO DAILY Levemir Flextouch (Insulin Detemir) 100 Unit/1 Ml Insuln.pen 26 Units SQ DAILYWBKFT Levemir Flextouch (Insulin Detemir) 100 Unit/1 Ml Insuln.pen 16 Units SQ HS Lasix (Furosemide) 40 Mg Tablet 40 Mg PO DAILY Haloperidol 10 Mg Tablet 15 Mg PO BID Haloperidol Lactate 5 Mg/1 Ml Vial 5 Mg IM PRN Q4HRS PRN Gemfibrozil 600 Mg Tablet 600 Mg PO BID Gabapentin 300 Mg Capsule 300 Mg PO TID Flonase Allergy Relief (Fluticasone Propionate) 9.9 Ml [place].susp 2 Sprays NS PRN PRN Docusate Sodium 100 Mg Capsule 100 Mg PO DAILY Docusate Sodium 100 Mg Capsule 100 Mg PO PRN DAILY PRN Clonidine Hcl 0.1 Mg Tablet 0.1 Mg PO HS Cetirizine Hcl 10 Mg Tablet 10 Mg PO DAILY Aspirin Ec (Aspirin) 81 Mg Tablet.dr 81 Mg PO DAILYWBKFT Amlodipine Besylate 10 Mg Tablet 10 Mg PO DAILY Abilify (Aripiprazole) 15 Mg Tablet 10 Mg PO BID I have reviewed the current psychotropics carefully including drug interactions. Risk benefit ratio favors no change other than as noted in my dictated progress note. Diagnosis: Problems: (1) Anxiety disorder (2) Bipolar affective, mixed, sev w/ psych (3) Schizoaffective disorder, chronic condition with acute exacerbation (4) Schizophrenia, disorganized, subchronic with acute exacerbation JASS HUNG MD December 22, 2017 20:21
[2017-12-22] MEDS: cloNIDine HCL 0.1 MG TABLET PO SCH (20:49)
[2017-12-22] MEDS: DIVALPROEX ER 500 MG TAB.ER.24H PO SCH (20:51)
[2017-12-22] MEDS: cloZAPine 100 MG TABLET PO SCH (20:52)
[2017-12-23] MEDS: IPRATRPIUM/ALBUTEROL 0.5/2.5MG 3 ML NEBU. NEB SCH ×4 (05:58→20:30)
[2017-12-23 06:05] VITALS: BP 116/54
[2017-12-23 08:20] LABS: VAL ACID 39 mcg/mL (50-100)
[2017-12-23] MEDS: GEMFIBROZIL 600 MG TABLET. PO SCH ×2 (08:29→20:58)
[2017-12-23] MEDS: HALOPERIDOL 5 MG TABLET PO SCH ×2 (08:29→20:58)
[2017-12-23] MEDS: PIOGLITAZONE 15 MG TABLET. PO SCH (08:29)
[2017-12-23] MEDS: MULTIVITAMIN with MINERAL TABLET. PO SCH (08:29)
[2017-12-23] MEDS: CETIRIZINE HCL 10 MG TABLET PO SCH (08:30)
[2017-12-23] MEDS: FAMOTIDINE 20 MG TABLET PO SCH ×2 (08:30→20:58)
[2017-12-23] MEDS: SIMETHICONE 80 MG TAB.CHEW PO SCH ×3 (08:30→20:58)
[2017-12-23] MEDS: GABAPENTIN 300 MG CAPSULE. PO SCH ×3 (08:30→20:58)
[2017-12-23] MEDS: DOCUSATE SODIUM 100 MG CAPSULE PO SCH (08:30)
[2017-12-23] MEDS: FUROSEMIDE 40 MG TABLET PO SCH (08:30)
[2017-12-23] MEDS: SENNOSIDES 8.6 MG TABLET PO SCH ×2 (08:30→20:59)
[2017-12-23] MEDS: MAGNESIUM OXIDE 400 MG TABLET PO SCH (08:30)
[2017-12-23] MEDS: LACTOBACILLUS RHAMNOSUS GG 1 CAPSULE. PO SCH ×2 (08:31→20:57)
[2017-12-23] MEDS: POTASSIUM CHLORIDE 10 MEQ TABLET.ER. PO SCH (08:31)
[2017-12-23] MEDS: traZODone 50 MG TABLET. PO SCH ×3 (08:31→17:44)
[2017-12-23] MEDS: ARIPiprazole 10 MG TABLET PO SCH ×2 (08:31→20:56)
[2017-12-23] MEDS: LISINOPRIL 20 MG TABLET PO SCH (08:32)
[2017-12-23] MEDS: amLODIPine BESYLATE 10 MG TABLET PO SCH (08:32)
[2017-12-23] MEDS: POLYETHYLENE GLYCOL 3350 17 GM PACKET. PO SCH (08:33)
[2017-12-23] MEDS: INSULIN LISPRO 300 UNITS/3 ML INSULN.PEN. SQ SCH ×3 (08:34→17:47)
[2017-12-23] MEDS: INSULIN GLARGINE 300 UNITS/3 ML INSULN.PEN. SQ SCH ×2 (08:35→21:01)
[2017-12-23 18:23] VITALS: BP 153/75
[2017-12-23] MEDS: cloZAPine 100 MG TABLET PO SCH (20:57)
[2017-12-23] MEDS: cloNIDine HCL 0.1 MG TABLET PO SCH (20:57)
[2017-12-23] MEDS: DIVALPROEX ER 500 MG TAB.ER.24H PO SCH (20:58)
--- NOTE | 2017-12-23 22:17 | PDOC ---
Exam Note: Tay Note: Please also refer to the separate dictated note~for this date of service dictated separately.~Patient seen individually. Discussed the patient with Nursing staff reviewed the chart.~Reviewed interim history and current functioning. Reviewed vital signs,~Labs/ Radiology~and current medications noted below. Continue current treatment with the changes noted in the dictated addendum note Assessment: Vital Signs: Vital Signs Date Time Temp Pulse Resp B/P (MAP) Pulse Ox O2 Delivery O2 Flow Rate FiO2 12/23/17 20:57 78 153/75 12/23/17 20:30 98 Room Air 12/23/17 18:23 97.6 18 I&O Intake and Output 12/23/17 07:00 Intake Total 1560 ml Balance 1560 ml Intake Oral 1560 ml Labs: Laboratory Tests Test 12/23/17 07:26 12/23/17 07:34 12/23/17 11:40 12/23/17 17:10 Valproic Acid Level 39 mcg/mL (50-100) L Valproic Acid Last Dose Date 12/22/2017 Valproic Acid Last Dose Time 2100 Glucose (Fingerstick) 173 mg/dL (70-99) H 156 mg/dL (70-99) H 133 mg/dL (70-99) H Test 12/23/17 19:10 Glucose (Fingerstick) 217 mg/dL (70-99) H Current Medications: Meds: Current Medications Acetaminophen (Tylenol) 650 mg PRN Q6HRS PRN PO PAIN / TEMP; Start 12/20/17 at 23:30; Status Cancel Multi-Ingredient Ointment (Analgesic [place]) 1 caridad PRN QID PRN TP MUSCLE PAIN; Start 12/20/17 at 23:30 Al Hydroxide/Mg Hydroxide (Mylanta Plus Xs) 15 ml PRN AFTMEALHC PRN PO DYSPEPSIA; Start 12/20/17 at 23:30 Magnesium Hydroxide (Milk Of Magnesia) 2,400 mg PRN QHS PRN PO CONSTIPATION; Start 12/20/17 at 23:30 Olanzapine (ZyPREXA ZYDIS) 5 mg PRN Q2HR PRN PO PSYCHOSIS; Start 12/21/17 at 01 :00 Aripiprazole (Abilify) 10 mg BID PO Last administered on 12/23/17at 20:56; Start 12/21/17 at 09:00 Clozapine (Clozaril) 75 mg QHS PO Last administered on 12/21/17at 20:40; Start 12/21/17 at 21:00; Stop 12/22/17 at 19:20; Status DC Divalproex Sodium (Depakote Er) 1,500 mg QHS PO Last administered on 12/23/17 20:58; Start 12/21/17 at 21:00 Fluvoxamine Maleate (Luvox) 50 mg QHS PO Last administered on 12/23/17at 20:58; Start 12/21/17 at 21:00 Haloperidol (Haldol) 15 mg BID PO Last administered on 12/23/17 20:58; Start 12/21/17 at 09:00 Haloperidol Lactate (Haldol) 5 mg PRN Q4HRS PRN IM AGITATION; Start 12/21/17 at 01:00; Stop 12/21/17 at 01:43; Status DC Clonidine HCl (Catapres) 0.1 mg HS PO Last administered on 12/23/17 20:57; Start 12/21/17 at 21:00 Gabapentin (Neurontin) 300 mg TID PO Last administered on 12/23/17 20:58; Start 12/21/17 at 10:00 Insulin Human Lispro (HumaLOG) 4 units DAILYWBKFT SQ Last administered on at 08:34; Start 12/22/17 at 08:00 Insulin Human Lispro (HumaLOG) 8 units DAILYBFRLUN SQ Last administered on 12/23at 13:17; Start 12/21/17 at 11:30 Insulin Human Lispro (HumaLOG) 10 units DAILYBFRSUP SQ Last administered on at 17:47; Start 12/21/17 at 17:00 Albuterol/ Ipratropium (Duoneb) 3 ml RTQID NEB Last administered on 12/23/17 20:30; Start 12/21/17 at 12:00 Lactobacillus Rhamnosus (Culturelle) 1 cap BID PO Last administered on 20:57; Start 12/21/17 at 10:00 Lisinopril (Prinivil) 20 mg DAILY PO Last administered on 12/23/17at 08:32; Start 12/21/17 at 10:00 Acetaminophen (Tylenol) 500 mg PRN Q6HRS PRN PO PAIN; Start 12/21/17 at 09:30 Amlodipine Besylate (Norvasc) 10 mg DAILY PO Last administered on 12/23/17 08: 32; Start 12/21/17 at 10:00 Cetirizine HCl (ZyrTEC) 10 mg DAILY PO Last administered on 12/23/17 08:30; Start 12/21/17 at 10:00 Docusate Sodium (Colace) 100 mg DAILY PO Last administered on 12/23/17 08:30; Start 12/21/17 at 10:00 Docusate Sodium (Colace) 100 mg PRN DAILY PRN PO CONSTIPATION; Start 12/21/17 at 10:00 Famotidine (Pepcid) 20 mg BID PO Last administered on 12/23/17at 20:58; Start at 10:00 Fluticasone Propionate (Flonase) 2 spray PRN DAILY PRN NS ALLERGIES; Start at 09:30 Furosemide (Lasix) 40 mg DAILY PO Last administered on 12/23/17 08:30; Start 12/21/17 at 10:00 Gemfibrozil (Lopid) 600 mg BID PO Last administered on 12/23/17 20:58; Start 12/21/17 at 10:00 Insulin Glargine (Lantus) 16 units HS SQ Last administered on 12/23/17at 21:01; Start 12/21/17 at 21:00 Insulin Glargine (Lantus) 26 units DAILYWBKFT SQ Last administered on 08:35; Start 12/22/17 at 08:00 Magnesium Oxide (Magnesium Oxide) 400 mg DAILY PO Last administered on 08:30; Start 12/21/17 at 10:00 Multivitamins/ Calcium (Thera-M Plus) 1 tab DAILY PO Last administered on 08:29; Start 12/21/17 at 10:00 Pioglitazone HCl (Actos) 30 mg DAILY PO Last administered on 12/23/17 08:29; Start 12/21/17 at 10:00 Polyethylene Glycol (miraLAX) 1 gm DAILY PO Last administered on 12/21/17at 10: 12; Start 12/21/17 at 10:00; Stop 12/22/17 at 09:12; Status DC Potassium Chloride (Klor-Con) 10 meq DAILYWBKFT PO Last administered on at 08:31; Start 12/22/17 at 10:00 Sennosides (Senna) 8.6 mg BID PO Last administered on 12/23/17 20:59; Start at 10:00 Simethicone (Gas-X) 120 mg TID PO Last administered on 12/23/17 20:58; Start 12/21/17 at 10:00 Trazodone HCl (Desyrel) 12.5 mg TID@0900,1300,1700 PO Last administered on 12/23 17:44; Start 12/21/17 at 10:00 Artificial Tears (Artificial Tears) 1 drop PRN Q15MIN PRN OU DRY EYE Last administered on 12/22/17 15:57; Start 12/21/17 at 16:00 Polyethylene Glycol (miraLAX) 17 gm DAILY PO Last administered on 12/23/17 08: 33; Start 12/23/17 at 09:00 Clozapine (Clozaril) 100 mg QHS PO Last administered on 12/23/17 20:57; Start 12/22/17 at 21:00 Active Scripts Active Reported Duoneb 0.5-3(2.5) Mg/3 Ml (Albuterol/Ipratropium) 3 Ml Ampul.neb 3 Ml NEB RTQID Trazodone Hcl 50 Mg Tablet 12.5 Mg PO TID@0900,1300,1700 Fluvoxamine Maleate 50 Mg Tablet 50 Mg PO QHS Clozaril (Clozapine) 25 Mg Tablet 75 Mg PO QHS Miralax (Polyethylene Glycol 3350) 17 Gm Powd.pack 1 Packet PO DAILY Zyprexa Zydis (Olanzapine) 5 Mg Tab.rapdis 5 Mg PO PRN Q2HR PRN Depakote Er (Divalproex Sodium) 500 Mg Tab.er.24h 1,500 Tab PO QHS Culturelle (Lactobacillus Rhamnosus Gg) 1 Each Cap.sprink 1 Each PO BID Multi Vitamin Daily (Multivitamin) 1 Each Tablet 1 Tab PO DAILY Simethicone 125 Mg Capsule 120 Mg PO TID Senna Lax (Sennosides) 8.6 Mg Tablet 8.6 Mg PO BID Potassium Chloride 10 Meq Tablet.er 10 Meq PO DAILYWBKFT Actos (Pioglitazone Hcl) 30 Mg Tablet 30 Mg PO DAILY Pepcid (Famotidine) 20 Mg Tablet 20 Mg PO BID Novolog Flexpen (Insulin Aspart) 100 Unit/1 Ml Insuln.pen 8 Units SQ DAILYBFRLUN Novolog Flexpen (Insulin Aspart) 100 Unit/1 Ml Insuln.pen 4 Units SQ DAILYWBKFT Novolog Flexpen (Insulin Aspart) 100 Unit/1 Ml Insuln.pen 10 Unit SQ DAILYBFRSUP Mapap (Acetaminophen) 500 Mg Tablet 500 Mg PO PRN Q6HRS PRN Magnesium Oxide 400 Mg Tablet 400 Mg PO DAILY Lisinopril 20 Mg Tablet 20 Mg PO DAILY Levemir Flextouch (Insulin Detemir) 100 Unit/1 Ml Insuln.pen 26 Units SQ DAILYWBKFT Levemir Flextouch (Insulin Detemir) 100 Unit/1 Ml Insuln.pen 16 Units SQ HS Lasix (Furosemide) 40 Mg Tablet 40 Mg PO DAILY Haloperidol 10 Mg Tablet 15 Mg PO BID Haloperidol Lactate 5 Mg/1 Ml Vial 5 Mg IM PRN Q4HRS PRN Gemfibrozil 600 Mg Tablet 600 Mg PO BID Gabapentin 300 Mg Capsule 300 Mg PO TID Flonase Allergy Relief (Fluticasone Propionate) 9.9 Ml [place].susp 2 Sprays NS PRN PRN Docusate Sodium 100 Mg Capsule 100 Mg PO DAILY Docusate Sodium 100 Mg Capsule 100 Mg PO PRN DAILY PRN Clonidine Hcl 0.1 Mg Tablet 0.1 Mg PO HS Cetirizine Hcl 10 Mg Tablet 10 Mg PO DAILY Aspirin Ec (Aspirin) 81 Mg Tablet.dr 81 Mg PO DAILYWBKFT Amlodipine Besylate 10 Mg Tablet 10 Mg PO DAILY Abilify (Aripiprazole) 15 Mg Tablet 10 Mg PO BID I have reviewed the current psychotropics carefully including drug interactions. Risk benefit ratio favors no change other than as noted in my dictated progress note. Diagnosis: Problems: (1) Anxiety disorder (2) Bipolar affective, mixed, sev w/ psych (3) Schizoaffective disorder, chronic condition with acute exacerbation (4) Schizophrenia, disorganized, subchronic with acute exacerbation ANABELL,MAN M MD December 23, 2017 22:17
--- NOTE | 2017-12-24 01:23 | PN ---
DATE: 12/22/2017 This is a late entry of 12/22/2017 covers elements not covered in my initial note of 12/22/2017. SUBJECTIVE: I met with the patient in the evening. The patient slept 7-3/4 hours, has been demanding, attention seeking, obsessive repeatedly at the nursing station, repeatedly following me around the unit on rounds even though I met with her extensively initially. She was having vague somatic symptoms "I am blind." REVIEW OF SYSTEMS: Vague somatic symptoms. No CV, , pulmonary, eye system symptoms on review other than above. MENTAL STATUS EXAM: Oriented to herself and situation. Speech is coherent, rapid at times. Abstraction fair, computation impaired, language function intact. Mood and affect remains anxious, labile. LABORATORY DATA: Reviewed. IMPRESSION: Schizoaffective disorder, bipolar type, mixed with psychotic features. Rest unchanged. PLAN: WBC is 5.5, neutrophils 44%. We will go ahead and increase the Clozaril to 100 mg p.o. at bedtime. Check CBC, absolute neutrophil counts every week. Repeat valproic acid level. The last level we done was 67, therapeutic and we have not changed the doses so far. Continue rest unchanged. For now, may need to increase Luvox as well. MAN Prosper HUNG MD DR: KATIANA/alicia JOB#: [id number] / [id number]
[2017-12-24] MEDS: IPRATRPIUM/ALBUTEROL 0.5/2.5MG 3 ML NEBU. NEB SCH ×4 (05:36→21:10)
[2017-12-24 06:07] VITALS: BP 105/55
[2017-12-24] MEDS: POLYETHYLENE GLYCOL 3350 17 GM PACKET. PO SCH (08:39)
[2017-12-24] MEDS: FAMOTIDINE 20 MG TABLET PO SCH ×2 (08:40→20:23)
[2017-12-24] MEDS: MULTIVITAMIN with MINERAL TABLET. PO SCH (08:40)
[2017-12-24] MEDS: DOCUSATE SODIUM 100 MG CAPSULE PO SCH (08:40)
[2017-12-24] MEDS: SIMETHICONE 80 MG TAB.CHEW PO SCH ×3 (08:41→20:22)
[2017-12-24] MEDS: PIOGLITAZONE 15 MG TABLET. PO SCH (08:42)
[2017-12-24] MEDS: MAGNESIUM OXIDE 400 MG TABLET PO SCH (08:42)
[2017-12-24] MEDS: SENNOSIDES 8.6 MG TABLET PO SCH ×2 (08:42→20:22)
[2017-12-24] MEDS: ARIPiprazole 10 MG TABLET PO SCH ×2 (08:42→20:23)
[2017-12-24] MEDS: HALOPERIDOL 5 MG TABLET PO SCH ×2 (08:42→20:22)
[2017-12-24] MEDS: traZODone 50 MG TABLET. PO SCH ×3 (08:42→17:14)
[2017-12-24] MEDS: POTASSIUM CHLORIDE 10 MEQ TABLET.ER. PO SCH (08:43)
[2017-12-24] MEDS: LACTOBACILLUS RHAMNOSUS GG 1 CAPSULE. PO SCH ×2 (08:43→20:22)
[2017-12-24] MEDS: GEMFIBROZIL 600 MG TABLET. PO SCH ×2 (08:43→20:22)
[2017-12-24] MEDS: GABAPENTIN 300 MG CAPSULE. PO SCH ×3 (08:43→20:23)
[2017-12-24] MEDS: CETIRIZINE HCL 10 MG TABLET PO SCH (08:43)
[2017-12-24] MEDS: FUROSEMIDE 40 MG TABLET PO SCH (08:43)
[2017-12-24] MEDS: LISINOPRIL 20 MG TABLET PO SCH (08:44)
[2017-12-24] MEDS: amLODIPine BESYLATE 10 MG TABLET PO SCH (08:45)
[2017-12-24] MEDS: INSULIN GLARGINE 300 UNITS/3 ML INSULN.PEN. SQ SCH ×2 (08:48→20:24)
[2017-12-24] MEDS: INSULIN LISPRO 300 UNITS/3 ML INSULN.PEN. SQ SCH ×3 (08:49→17:22)
[2017-12-24 16:49] VITALS: BP 151/69
--- NOTE | 2017-12-24 20:19 | PDOC ---
Exam Note: Tay Note: Please also refer to the separate dictated note~for this date of service dictated separately.~Patient seen individually. Discussed the patient with Nursing staff reviewed the chart.~Reviewed interim history and current functioning. Reviewed vital signs,~Labs/ Radiology~and current medications noted below. Continue current treatment with the changes noted in the dictated addendum note Assessment: Vital Signs: Vital Signs Date Time Temp Pulse Resp B/P (MAP) Pulse Ox O2 Delivery O2 Flow Rate FiO2 12/24/17 16:49 96.7 94 16 151/69 (96) 100 Room Air I&O Intake and Output 12/24/17 07:00 Intake Total 1260 ml Balance 1260 ml Intake Oral 1260 ml Labs: Laboratory Tests Test 12/24/17 08:03 12/24/17 11:56 12/24/17 16:57 12/24/17 19:40 Glucose (Fingerstick) 163 mg/dL (70-99) H 226 mg/dL (70-99) H 165 mg/dL (70-99) H 148 mg/dL (70-99) H Current Medications: Meds: Current Medications Acetaminophen (Tylenol) 650 mg PRN Q6HRS PRN PO PAIN / TEMP; Start 12/20/17 at 23:30; Status Cancel Multi-Ingredient Ointment (Analgesic [place]) 1 caridad PRN QID PRN TP MUSCLE PAIN; Start 12/20/17 at 23:30 Al Hydroxide/Mg Hydroxide (Mylanta Plus Xs) 15 ml PRN AFTMEALHC PRN PO DYSPEPSIA; Start 12/20/17 at 23:30 Magnesium Hydroxide (Milk Of Magnesia) 2,400 mg PRN QHS PRN PO CONSTIPATION; Start 12/20/17 at 23:30 Olanzapine (ZyPREXA ZYDIS) 5 mg PRN Q2HR PRN PO PSYCHOSIS; Start 12/21/17 at 01 :00 Aripiprazole (Abilify) 10 mg BID PO Last administered on 12/24/17at 08:42; Start 12/21/17 at 09:00 Clozapine (Clozaril) 75 mg QHS PO Last administered on 12/21/17at 20:40; Start 12/21/17 at 21:00; Stop 12/22/17 at 19:20; Status DC Divalproex Sodium (Depakote Er) 1,500 mg QHS PO Last administered on 12/23/17 20:58; Start 12/21/17 at 21:00 Fluvoxamine Maleate (Luvox) 50 mg QHS PO Last administered on 12/23/17at 20:58; Start 12/21/17 at 21:00 Haloperidol (Haldol) 15 mg BID PO Last administered on 12/24/17at 08:42; Start 12/21/17 at 09:00 Haloperidol Lactate (Haldol) 5 mg PRN Q4HRS PRN IM AGITATION; Start 12/21/17 at 01:00; Stop 12/21/17 at 01:43; Status DC Clonidine HCl (Catapres) 0.1 mg HS PO Last administered on 12/23/17at 20:57; Start 12/21/17 at 21:00 Gabapentin (Neurontin) 300 mg TID PO Last administered on 12/24/17at 13:40; Start 12/21/17 at 10:00 Insulin Human Lispro (HumaLOG) 4 units DAILYWBKFT SQ Last administered on at 08:49; Start 12/22/17 at 08:00 Insulin Human Lispro (HumaLOG) 8 units DAILYBFRLUN SQ Last administered on 12/24at 12:11; Start 12/21/17 at 11:30 Insulin Human Lispro (HumaLOG) 10 units DAILYBFRSUP SQ Last administered on at 17:22; Start 12/21/17 at 17:00 Albuterol/ Ipratropium (Duoneb) 3 ml RTQID NEB Last administered on 12/24/17at 16:33; Start 12/21/17 at 12:00 Lactobacillus Rhamnosus (Culturelle) 1 cap BID PO Last administered on at 08:43; Start 12/21/17 at 10:00 Lisinopril (Prinivil) 20 mg DAILY PO Last administered on 12/24/17at 08:44; Start 12/21/17 at 10:00 Acetaminophen (Tylenol) 500 mg PRN Q6HRS PRN PO PAIN; Start 12/21/17 at 09:30 Amlodipine Besylate (Norvasc) 10 mg DAILY PO Last administered on 12/24/17at 08: 45; Start 12/21/17 at 10:00 Cetirizine HCl (ZyrTEC) 10 mg DAILY PO Last administered on 12/24/17 08:43; Start 12/21/17 at 10:00 Docusate Sodium (Colace) 100 mg DAILY PO Last administered on 12/24/17at 08:40; Start 12/21/17 at 10:00 Docusate Sodium (Colace) 100 mg PRN DAILY PRN PO CONSTIPATION; Start 12/21/17 at 10:00 Famotidine (Pepcid) 20 mg BID PO Last administered on 12/24/17at 08:40; Start at 10:00 Fluticasone Propionate (Flonase) 2 spray PRN DAILY PRN NS ALLERGIES; Start at 09:30 Furosemide (Lasix) 40 mg DAILY PO Last administered on 12/24/17 08:43; Start 12/21/17 at 10:00 Gemfibrozil (Lopid) 600 mg BID PO Last administered on 12/24/17 08:43; Start 12/21/17 at 10:00 Insulin Glargine (Lantus) 16 units HS SQ Last administered on 12/23/17at 21:01; Start 12/21/17 at 21:00 Insulin Glargine (Lantus) 26 units DAILYWBKFT SQ Last administered on at 08:48; Start 12/22/17 at 08:00 Magnesium Oxide (Magnesium Oxide) 400 mg DAILY PO Last administered on at 08:42; Start 12/21/17 at 10:00 Multivitamins/ Calcium (Thera-M Plus) 1 tab DAILY PO Last administered on at 08:40; Start 12/21/17 at 10:00 Pioglitazone HCl (Actos) 30 mg DAILY PO Last administered on 12/24/17 08:42; Start 12/21/17 at 10:00 Polyethylene Glycol (miraLAX) 1 gm DAILY PO Last administered on 12/21/17at 10: 12; Start 12/21/17 at 10:00; Stop 12/22/17 at 09:12; Status DC Potassium Chloride (Klor-Con) 10 meq DAILYWBKFT PO Last administered on 5/17/ 18at 08:43; Start 12/22/17 at 10:00 Sennosides (Senna) 8.6 mg BID PO Last administered on 12/24/17 08:42; Start at 10:00 Simethicone (Gas-X) 120 mg TID PO Last administered on 12/24/17 13:41; Start 12/21/17 at 10:00 Trazodone HCl (Desyrel) 12.5 mg TID@0900,1300,1700 PO Last administered on 12/24 17:14; Start 12/21/17 at 10:00 Artificial Tears (Artificial Tears) 1 drop PRN Q15MIN PRN OU DRY EYE Last administered on 12/22/17 15:57; Start 12/21/17 at 16:00 Polyethylene Glycol (miraLAX) 17 gm DAILY PO Last administered on 12/24/17 08: 39; Start 12/23/17 at 09:00 Clozapine (Clozaril) 100 mg QHS PO Last administered on 12/23/17 20:57; Start 12/22/17 at 21:00 Active Scripts Active Reported Duoneb 0.5-3(2.5) Mg/3 Ml (Albuterol/Ipratropium) 3 Ml Ampul.neb 3 Ml NEB RTQID Trazodone Hcl 50 Mg Tablet 12.5 Mg PO TID@0900,1300,1700 Fluvoxamine Maleate 50 Mg Tablet 50 Mg PO QHS Clozaril (Clozapine) 25 Mg Tablet 75 Mg PO QHS Miralax (Polyethylene Glycol 3350) 17 Gm Powd.pack 1 Packet PO DAILY Zyprexa Zydis (Olanzapine) 5 Mg Tab.rapdis 5 Mg PO PRN Q2HR PRN Depakote Er (Divalproex Sodium) 500 Mg Tab.er.24h 1,500 Tab PO QHS Culturelle (Lactobacillus Rhamnosus Gg) 1 Each Cap.sprink 1 Each PO BID Multi Vitamin Daily (Multivitamin) 1 Each Tablet 1 Tab PO DAILY Simethicone 125 Mg Capsule 120 Mg PO TID Senna Lax (Sennosides) 8.6 Mg Tablet 8.6 Mg PO BID Potassium Chloride 10 Meq Tablet.er 10 Meq PO DAILYWBKFT Actos (Pioglitazone Hcl) 30 Mg Tablet 30 Mg PO DAILY Pepcid (Famotidine) 20 Mg Tablet 20 Mg PO BID Novolog Flexpen (Insulin Aspart) 100 Unit/1 Ml Insuln.pen 8 Units SQ DAILYBFRLUN Novolog Flexpen (Insulin Aspart) 100 Unit/1 Ml Insuln.pen 4 Units SQ DAILYWBKFT Novolog Flexpen (Insulin Aspart) 100 Unit/1 Ml Insuln.pen 10 Unit SQ DAILYBFRSUP Mapap (Acetaminophen) 500 Mg Tablet 500 Mg PO PRN Q6HRS PRN Magnesium Oxide 400 Mg Tablet 400 Mg PO DAILY Lisinopril 20 Mg Tablet 20 Mg PO DAILY Levemir Flextouch (Insulin Detemir) 100 Unit/1 Ml Insuln.pen 26 Units SQ DAILYWBKFT Levemir Flextouch (Insulin Detemir) 100 Unit/1 Ml Insuln.pen 16 Units SQ HS Lasix (Furosemide) 40 Mg Tablet 40 Mg PO DAILY Haloperidol 10 Mg Tablet 15 Mg PO BID Haloperidol Lactate 5 Mg/1 Ml Vial 5 Mg IM PRN Q4HRS PRN Gemfibrozil 600 Mg Tablet 600 Mg PO BID Gabapentin 300 Mg Capsule 300 Mg PO TID Flonase Allergy Relief (Fluticasone Propionate) 9.9 Ml [place].susp 2 Sprays NS PRN PRN Docusate Sodium 100 Mg Capsule 100 Mg PO DAILY Docusate Sodium 100 Mg Capsule 100 Mg PO PRN DAILY PRN Clonidine Hcl 0.1 Mg Tablet 0.1 Mg PO HS Cetirizine Hcl 10 Mg Tablet 10 Mg PO DAILY Aspirin Ec (Aspirin) 81 Mg Tablet.dr 81 Mg PO DAILYWBKFT Amlodipine Besylate 10 Mg Tablet 10 Mg PO DAILY Abilify (Aripiprazole) 15 Mg Tablet 10 Mg PO BID I have reviewed the current psychotropics carefully including drug interactions. Risk benefit ratio favors no change other than as noted in my dictated progress note. Diagnosis: Problems: (1) Anxiety disorder (2) Bipolar affective, mixed, sev w/ psych (3) Schizoaffective disorder, chronic condition with acute exacerbation (4) Schizophrenia, disorganized, subchronic with acute exacerbation JASS HUNG MD December 24, 2017 20:19
[2017-12-24] MEDS: cloNIDine HCL 0.1 MG TABLET PO SCH (20:23)
[2017-12-24] MEDS: DIVALPROEX ER 500 MG TAB.ER.24H PO SCH (20:23)
[2017-12-24] MEDS: cloZAPine 100 MG TABLET PO SCH (20:23)
[2017-12-25 05:41] VITALS: BP 123/64
[2017-12-25] MEDS: IPRATRPIUM/ALBUTEROL 0.5/2.5MG 3 ML NEBU. NEB SCH ×4 (05:53→19:54)
[2017-12-25] MEDS: POLYETHYLENE GLYCOL 3350 17 GM PACKET. PO SCH (08:31)
[2017-12-25] MEDS: MULTIVITAMIN with MINERAL TABLET. PO SCH (08:31)
[2017-12-25] MEDS: LACTOBACILLUS RHAMNOSUS GG 1 CAPSULE. PO SCH ×2 (08:31→19:49)
[2017-12-25] MEDS: ARIPiprazole 10 MG TABLET PO SCH ×2 (08:31→19:50)
[2017-12-25] MEDS: CETIRIZINE HCL 10 MG TABLET PO SCH (08:31)
[2017-12-25] MEDS: HALOPERIDOL 5 MG TABLET PO SCH ×2 (08:31→19:50)
[2017-12-25] MEDS: SENNOSIDES 8.6 MG TABLET PO SCH ×2 (08:31→19:51)
[2017-12-25] MEDS: GABAPENTIN 300 MG CAPSULE. PO SCH ×3 (08:31→19:51)
[2017-12-25] MEDS: MAGNESIUM OXIDE 400 MG TABLET PO SCH (08:31)
[2017-12-25] MEDS: FUROSEMIDE 40 MG TABLET PO SCH (08:32)
[2017-12-25] MEDS: PIOGLITAZONE 15 MG TABLET. PO SCH (08:32)
[2017-12-25] MEDS: FAMOTIDINE 20 MG TABLET PO SCH ×2 (08:32→19:51)
[2017-12-25] MEDS: POTASSIUM CHLORIDE 10 MEQ TABLET.ER. PO SCH (08:32)
[2017-12-25] MEDS: GEMFIBROZIL 600 MG TABLET. PO SCH ×2 (08:32→19:49)
[2017-12-25] MEDS: SIMETHICONE 80 MG TAB.CHEW PO SCH ×3 (08:33→19:50)
[2017-12-25] MEDS: LISINOPRIL 20 MG TABLET PO SCH (08:34)
[2017-12-25] MEDS: amLODIPine BESYLATE 10 MG TABLET PO SCH (08:34)
[2017-12-25] MEDS: traZODone 50 MG TABLET. PO SCH ×3 (08:34→16:49)
[2017-12-25] MEDS: DOCUSATE SODIUM 100 MG CAPSULE PO SCH (08:37)
[2017-12-25] MEDS: INSULIN GLARGINE 300 UNITS/3 ML INSULN.PEN. SQ SCH ×2 (08:38→20:38)
[2017-12-25] MEDS: INSULIN LISPRO 300 UNITS/3 ML INSULN.PEN. SQ SCH ×3 (08:41→17:16)
[2017-12-25 09:55] LABS: BASO % 1 % (0-3); EOS # 0.5 x10^3/uL (0.0-0.7); EOS % 7 % (0-3); HEMATOCRIT 31.9 % (36.0-47.0); HEMOGLOBIN 10.4 g/dL (12.0-15.5); LYMPH # 2.2 x10^3/uL (1.0-4.8); LYMPH % 32 % (24-48); MEAN CORPUSCULAR HEMOGLOBIN 28 pg (25-35); MEAN CORPUSCULAR HGB CONC 33 g/dL (31-37); MEAN CORPUSCULAR VOLUME 85 fL (79-100); MONO # 0.7 x10^3/uL (0.0-1.1); MONO % 10 % (0-9); NEUT # 3.3 x10^3uL (1.8-7.7); NEUT % 50 % (31-73); PLATELET COUNT 226 x10^3/uL (140-400); RED BLOOD COUNT 3.76 x10^6/uL (3.50-5.40); RED CELL DISTRIBUTION WIDTH 16.9 % (11.5-14.5); WHITE BLOOD COUNT 6.7 x10^3/uL (4.0-11.0)
[2017-12-25 10:06] LABS: ALBUMIN 2.9 g/dL (3.4-5.0); ALBUMIN/GLOBULIN RATIO 0.8 (1.0-1.7); ALK PHOS 159 U/L (46-116); ALT (SGPT) 24 U/L (14-59); ANION GAP 4 (6-14); AST (SGOT) 18 U/L (15-37); BLOOD UREA NITROGEN 27 mg/dL (7-20); BUN/CREATININE RATIO 13 (6-20); CALCIUM 8.8 mg/dL (8.5-10.1); CARBON DIOXIDE 34 mmol/L (21-32); CHLORIDE 104 mmol/L (98-107); CREATININE 2.1 mg/dL (0.6-1.0); GFR 30.2; GLUCOSE 257 mg/dL (70-99); POTASSIUM 4.6 mmol/L (3.5-5.1); SODIUM 142 mmol/L (136-145); TOTAL BILIRUBIN 0.2 mg/dL (0.2-1.0); TOTAL PROTEIN 6.6 g/dL (6.4-8.2); VAL ACID 51 mcg/mL (50-100)
[2017-12-25 12:37] LABS: C ANCA <1:20 titer (Neg:<1:20); P ANCA <1:20 titer (Neg:<1:20)
[2017-12-25 16:22] VITALS: BP 137/62
[2017-12-25] MEDS: cloZAPine 100 MG TABLET PO SCH (19:50)
[2017-12-25] MEDS: cloNIDine HCL 0.1 MG TABLET PO SCH (19:51)
[2017-12-25] MEDS: DIVALPROEX ER 500 MG TAB.ER.24H PO SCH (20:34)
[2017-12-25] MEDS: DIVALPROEX ER 250 MG TAB.ER.24H. PO SCH (20:35)
[2017-12-25] MEDS ORDERED: DIVALPROEX ER 250 MG TAB.ER.24H. PO SCH (21:00)
--- NOTE | 2017-12-26 03:12 | PN ---
DATE: 12/23/2017 This late entry of 12/23/2017 covers elements not covered in my initial note 12/23/2017. SUBJECTIVE: I met with the patient in the evening and staffed at treatment team meeting in the afternoon. Valproic acid level is 39. We will be repeating it on Thursday. She continues to be attention seeking, anxious, obsessive, demanding at times, compliant with medications. No CV, , pulmonary, eye, ENT system symptoms on review. MENTAL STATUS EXAM: Oriented to herself. Insight, judgment, recent memory is impaired. Language function intact. Mood and affect still somewhat labile, but improved. Intermittently psychotic. LABORATORY DATA: Reviewed. IMPRESSION: Unchanged from initial note. PLAN: Continue current psychotropics including Clozaril 100 mg a day. Valproic acid level will be repeated 12/25/2017. MAN Prosper HUNG MD DR: KATIANA/alicia JOB#: [id number] / [id number]
--- NOTE | 2017-12-26 03:15 | PN ---
DATE: 12/24/2017 This late entry 12/24/2017 covers elements not covered in my initial note 12/24/2017. SUBJECTIVE: I met with the patient in the evening. The patient slept 7-3/4 hours previous evening, she was hallucinating. During the day, 12/24/2017, she is a little better. Labs to be checked in the morning 12/25/2017. REVIEW OF SYSTEMS: No CV, , pulmonary, eye, ENT system symptoms on review. Reliability poor. MENTAL STATUS EXAM: Oriented to herself. Insight, judgment, recent memory is impaired. Language function intact. Attention span short. Mood and affect remain somewhat labile. LABORATORY DATA: Reviewed. IMPRESSION: Unchanged from initial note. PLAN: Continue current psychotropics, follow labs on 12/25/2017 and adjust Depakote, may need to increase Clozaril. MAN Prosper HUNG MD DR: KATIANA/alicia JOB#: [id number] / [id number]
[2017-12-26] MEDS: IPRATRPIUM/ALBUTEROL 0.5/2.5MG 3 ML NEBU. NEB SCH ×4 (05:50→21:28)
[2017-12-26 06:12] VITALS: BP 132/59
[2017-12-26] MEDS: INSULIN LISPRO 300 UNITS/3 ML INSULN.PEN. SQ SCH ×3 (08:00→17:00)
[2017-12-26] MEDS: INSULIN GLARGINE 300 UNITS/3 ML INSULN.PEN. SQ SCH ×2 (08:00→20:45)
[2017-12-26] MEDS: POLYETHYLENE GLYCOL 3350 17 GM PACKET. PO SCH (08:43)
[2017-12-26] MEDS: HALOPERIDOL 5 MG TABLET PO SCH ×2 (08:43→19:34)
[2017-12-26] MEDS: MULTIVITAMIN with MINERAL TABLET. PO SCH (08:44)
[2017-12-26] MEDS: POTASSIUM CHLORIDE 10 MEQ TABLET.ER. PO SCH (08:44)
[2017-12-26] MEDS: FAMOTIDINE 20 MG TABLET PO SCH ×2 (08:44→19:35)
[2017-12-26] MEDS: LACTOBACILLUS RHAMNOSUS GG 1 CAPSULE. PO SCH ×2 (08:44→19:34)
[2017-12-26] MEDS: ARIPiprazole 10 MG TABLET PO SCH (08:44)
[2017-12-26] MEDS: FUROSEMIDE 40 MG TABLET PO SCH (08:44)
[2017-12-26] MEDS: DOCUSATE SODIUM 100 MG CAPSULE PO SCH (08:44)
[2017-12-26] MEDS: SENNOSIDES 8.6 MG TABLET PO SCH ×2 (08:45→19:35)
[2017-12-26] MEDS: amLODIPine BESYLATE 10 MG TABLET PO SCH (08:45)
[2017-12-26] MEDS: LISINOPRIL 20 MG TABLET PO SCH (08:46)
[2017-12-26] MEDS: PIOGLITAZONE 15 MG TABLET. PO SCH (08:46)
[2017-12-26] MEDS: GABAPENTIN 300 MG CAPSULE. PO SCH ×3 (08:46→19:35)
[2017-12-26] MEDS: MAGNESIUM OXIDE 400 MG TABLET PO SCH (08:47)
[2017-12-26] MEDS: SIMETHICONE 80 MG TAB.CHEW PO SCH ×3 (08:47→19:34)
[2017-12-26] MEDS: CETIRIZINE HCL 10 MG TABLET PO SCH (08:47)
[2017-12-26] MEDS: GEMFIBROZIL 600 MG TABLET. PO SCH ×2 (09:00→19:34)
[2017-12-26] MEDS: traZODone 50 MG TABLET. PO SCH ×3 (09:00→17:00)
[2017-12-26 16:37] VITALS: BP 133/64
[2017-12-26] MEDS: DIVALPROEX ER 500 MG TAB.ER.24H PO SCH (19:32)
[2017-12-26] MEDS: DIVALPROEX ER 250 MG TAB.ER.24H. PO SCH (19:33)
[2017-12-26] MEDS: cloNIDine HCL 0.1 MG TABLET PO SCH (19:35)
[2017-12-26] MEDS: cloZAPine 100 MG TABLET PO SCH (19:35)
--- NOTE | 2017-12-26 22:47 | PDOC ---
Exam Note: Tay Note: Late entry for date of service December 25, 2017. Please also refer to the separate dictated note~for this date of service dictated separately.~Patient seen individually. Discussed the patient with Nursing staff reviewed the chart.~ Reviewed interim history and current functioning. Reviewed vital signs,~Labs/ Radiology~and current medications noted below. Continue current treatment with the changes noted in the dictated addendum note Assessment: Vital Signs: VS - Last 72 Hours, by Label Date Time Temp Pulse Resp B/P (MAP) Pulse Ox O2 Delivery O2 Flow Rate FiO2 12/26/17 21:30 96 Room Air 12/26/17 19:35 101 133/64 12/26/17 16:37 97.8 101 18 133/64 (87) 94 12/26/17 16:25 98 Room Air 12/26/17 10:56 98 Room Air 12/26/17 08:46 92 132/59 12/26/17 08:45 92 132/59 12/26/17 06:12 98.0 92 20 132/59 (83) 96 12/25/17 19:55 98 Room Air 12/25/17 19:51 85 137/62 12/25/17 16:22 97.3 85 22 137/62 (87) 96 12/25/17 08:34 89 123/64 12/25/17 08:34 89 123/64 12/25/17 05:41 98.1 89 20 123/64 (83) 95 12/25/17 05:00 98 Room Air 12/24/17 20:45 99 Room Air 12/24/17 20:23 94 151/69 12/24/17 16:49 96.7 94 16 151/69 (96) 100 Room Air 12/24/17 16:33 98 Room Air 12/24/17 11:13 100 Room Air 12/24/17 08:45 69 105/55 12/24/17 08:44 69 105/55 12/24/17 06:07 98.1 69 20 105/55 (72) 97 Vital Signs Date Time Temp Pulse Resp B/P (MAP) Pulse Ox O2 Delivery O2 Flow Rate FiO2 12/26/17 21:30 96 Room Air 12/26/17 19:35 101 133/64 12/26/17 16:37 97.8 18 I&O Intake and Output 12/26/17 07:00 Intake Total 1220 ml Balance 1220 ml Intake Oral 1220 ml # Bowel Movements 1 Labs: Laboratory Tests Test 12/26/17 04:48 12/26/17 08:06 12/26/17 12:13 12/26/17 17:17 Glucose (Fingerstick) 167 mg/dL (70-99) H 134 mg/dL (70-99) H 240 mg/dL (70-99) H 195 mg/dL (70-99) H Test 12/26/17 19:42 Glucose (Fingerstick) 241 mg/dL (70-99) H Current Medications: Meds: Current Medications Acetaminophen (Tylenol) 650 mg PRN Q6HRS PRN PO PAIN / TEMP; Start 12/20/17 at 23:30; Status Cancel Multi-Ingredient Ointment (Analgesic [place]) 1 caridad PRN QID PRN TP MUSCLE PAIN; Start 12/20/17 at 23:30 Al Hydroxide/Mg Hydroxide (Mylanta Plus Xs) 15 ml PRN AFTMEALHC PRN PO DYSPEPSIA; Start 12/20/17 at 23:30 Magnesium Hydroxide (Milk Of Magnesia) 2,400 mg PRN QHS PRN PO CONSTIPATION; Start 12/20/17 at 23:30 Olanzapine (ZyPREXA ZYDIS) 5 mg PRN Q2HR PRN PO PSYCHOSIS; Start 12/21/17 at 01 :00 Aripiprazole (Abilify) 10 mg BID PO Last administered on 12/26/17at 08:44; Start 12/21/17 at 09:00; Stop 12/26/17 at 19:47; Status DC Clozapine (Clozaril) 75 mg QHS PO Last administered on 12/21/17at 20:40; Start 12/21/17 at 21:00; Stop 12/22/17 at 19:20; Status DC Divalproex Sodium (Depakote Er) 1,500 mg QHS PO Last administered on 12/24/17at 20:23; Start 12/21/17 at 21:00; Stop 12/25/17 at 19:22; Status DC Fluvoxamine Maleate (Luvox) 50 mg QHS PO Last administered on 12/26/17at 19:34; Start 12/21/17 at 21:00 Haloperidol (Haldol) 15 mg BID PO Last administered on 12/26/17 19:34; Start 12/21/17 at 09:00 Haloperidol Lactate (Haldol) 5 mg PRN Q4HRS PRN IM AGITATION; Start 12/21/17 at 01:00; Stop 12/21/17 at 01:43; Status DC Clonidine HCl (Catapres) 0.1 mg HS PO Last administered on 12/26/17 19:35; Start 12/21/17 at 21:00 Gabapentin (Neurontin) 300 mg TID PO Last administered on 12/26/17 19:35; Start 12/21/17 at 10:00 Insulin Human Lispro (HumaLOG) 4 units DAILYWBKFT SQ Last administered on at 08:00; Start 12/22/17 at 08:00 Insulin Human Lispro (HumaLOG) 8 units DAILYBFRLUN SQ Last administered on 12/26at 15:18; Start 12/21/17 at 11:30 Insulin Human Lispro (HumaLOG) 10 units DAILYBFRSUP SQ Last administered on at 17:00; Start 12/21/17 at 17:00 Albuterol/ Ipratropium (Duoneb) 3 ml RTQID NEB Last administered on 12/26/17 21:28; Start 12/21/17 at 12:00 Lactobacillus Rhamnosus (Culturelle) 1 cap BID PO Last administered on 19:34; Start 12/21/17 at 10:00 Lisinopril (Prinivil) 20 mg DAILY PO Last administered on 12/26/17at 08:46; Start 12/21/17 at 10:00 Acetaminophen (Tylenol) 500 mg PRN Q6HRS PRN PO PAIN; Start 12/21/17 at 09:30 Amlodipine Besylate (Norvasc) 10 mg DAILY PO Last administered on 12/26/17at 08: 45; Start 12/21/17 at 10:00 Cetirizine HCl (ZyrTEC) 10 mg DAILY PO Last administered on 12/26/17at 08:47; Start 12/21/17 at 10:00 Docusate Sodium (Colace) 100 mg DAILY PO Last administered on 12/26/17at 08:44; Start 12/21/17 at 10:00 Docusate Sodium (Colace) 100 mg PRN DAILY PRN PO CONSTIPATION; Start 12/21/17 at 10:00 Famotidine (Pepcid) 20 mg BID PO Last administered on 12/26/17 19:35; Start at 10:00 Fluticasone Propionate (Flonase) 2 spray PRN DAILY PRN NS ALLERGIES; Start at 09:30 Furosemide (Lasix) 40 mg DAILY PO Last administered on 12/26/17 08:44; Start 12/21/17 at 10:00 Gemfibrozil (Lopid) 600 mg BID PO Last administered on 12/26/17 19:34; Start 12/21/17 at 10:00 Insulin Glargine (Lantus) 16 units HS SQ Last administered on 12/26/17 20:45; Start 12/21/17 at 21:00 Insulin Glargine (Lantus) 26 units DAILYWBKFT SQ Last administered on 08:00; Start 12/22/17 at 08:00 Magnesium Oxide (Magnesium Oxide) 400 mg DAILY PO Last administered on 08:47; Start 12/21/17 at 10:00 Multivitamins/ Calcium (Thera-M Plus) 1 tab DAILY PO Last administered on 08:44; Start 12/21/17 at 10:00 Pioglitazone HCl (Actos) 30 mg DAILY PO Last administered on 12/26/17 08:46; Start 12/21/17 at 10:00 Polyethylene Glycol (miraLAX) 1 gm DAILY PO Last administered on 12/21/17at 10: 12; Start 12/21/17 at 10:00; Stop 12/22/17 at 09:12; Status DC Potassium Chloride (Klor-Con) 10 meq DAILYWBKFT PO Last administered on 08:44; Start 12/22/17 at 10:00 Sennosides (Senna) 8.6 mg BID PO Last administered on 12/26/17 19:35; Start at 10:00 Simethicone (Gas-X) 120 mg TID PO Last administered on 12/26/17 19:34; Start 12/21/17 at 10:00 Trazodone HCl (Desyrel) 12.5 mg TID@0900,1300,1700 PO Last administered on 12/26at 17:00; Start 12/21/17 at 10:00 Artificial Tears (Artificial Tears) 1 drop PRN Q15MIN PRN OU DRY EYE Last administered on 12/22/17 15:57; Start 12/21/17 at 16:00 Polyethylene Glycol (miraLAX) 17 gm DAILY PO Last administered on 12/26/17 08: 43; Start 12/23/17 at 09:00 Clozapine (Clozaril) 100 mg QHS PO Last administered on 12/26/17 19:35; Start 12/22/17 at 21:00 Divalproex Sodium (Depakote Er) 1,750 mg QHS PO ; Start 12/25/17 at 21:00; Stop 12/25/17 at 21:00; Status DC Divalproex Sodium (Depakote Er) 1,500 mg QHS PO Last administered on 12/26/17at 19:32; Start 12/25/17 at 21:00 Divalproex Sodium (Depakote Er) 250 mg QHS PO Last administered on 12/26/17 19 :33; Start 12/25/17 at 21:00 Active Scripts Active Reported Duoneb 0.5-3(2.5) Mg/3 Ml (Albuterol/Ipratropium) 3 Ml Ampul.neb 3 Ml NEB RTQID Trazodone Hcl 50 Mg Tablet 12.5 Mg PO TID@0900,1300,1700 Fluvoxamine Maleate 50 Mg Tablet 50 Mg PO QHS Clozaril (Clozapine) 25 Mg Tablet 75 Mg PO QHS Miralax (Polyethylene Glycol 3350) 17 Gm Powd.pack 1 Packet PO DAILY Zyprexa Zydis (Olanzapine) 5 Mg Tab.rapdis 5 Mg PO PRN Q2HR PRN Depakote Er (Divalproex Sodium) 500 Mg Tab.er.24h 1,500 Tab PO QHS Culturelle (Lactobacillus Rhamnosus Gg) 1 Each Cap.sprink 1 Each PO BID Multi Vitamin Daily (Multivitamin) 1 Each Tablet 1 Tab PO DAILY Simethicone 125 Mg Capsule 120 Mg PO TID Senna Lax (Sennosides) 8.6 Mg Tablet 8.6 Mg PO BID Potassium Chloride 10 Meq Tablet.er 10 Meq PO DAILYWBKFT Actos (Pioglitazone Hcl) 30 Mg Tablet 30 Mg PO DAILY Pepcid (Famotidine) 20 Mg Tablet 20 Mg PO BID Novolog Flexpen (Insulin Aspart) 100 Unit/1 Ml Insuln.pen 8 Units SQ DAILYBFRLUN Novolog Flexpen (Insulin Aspart) 100 Unit/1 Ml Insuln.pen 4 Units SQ DAILYWBKFT Novolog Flexpen (Insulin Aspart) 100 Unit/1 Ml Insuln.pen 10 Unit SQ DAILYBFRSUP Mapap (Acetaminophen) 500 Mg Tablet 500 Mg PO PRN Q6HRS PRN Magnesium Oxide 400 Mg Tablet 400 Mg PO DAILY Lisinopril 20 Mg Tablet 20 Mg PO DAILY Levemir Flextouch (Insulin Detemir) 100 Unit/1 Ml Insuln.pen 26 Units SQ DAILYWBKFT Levemir Flextouch (Insulin Detemir) 100 Unit/1 Ml Insuln.pen 16 Units SQ HS Lasix (Furosemide) 40 Mg Tablet 40 Mg PO DAILY Haloperidol 10 Mg Tablet 15 Mg PO BID Haloperidol Lactate 5 Mg/1 Ml Vial 5 Mg IM PRN Q4HRS PRN Gemfibrozil 600 Mg Tablet 600 Mg PO BID Gabapentin 300 Mg Capsule 300 Mg PO TID Flonase Allergy Relief (Fluticasone Propionate) 9.9 Ml [place].susp 2 Sprays NS PRN PRN Docusate Sodium 100 Mg Capsule 100 Mg PO DAILY Docusate Sodium 100 Mg Capsule 100 Mg PO PRN DAILY PRN Clonidine Hcl 0.1 Mg Tablet 0.1 Mg PO HS Cetirizine Hcl 10 Mg Tablet 10 Mg PO DAILY Aspirin Ec (Aspirin) 81 Mg Tablet.dr 81 Mg PO DAILYWBKFT Amlodipine Besylate 10 Mg Tablet 10 Mg PO DAILY Abilify (Aripiprazole) 15 Mg Tablet 10 Mg PO BID I have reviewed the current psychotropics carefully including drug interactions. Risk benefit ratio favors no change other than as noted in my dictated progress note. Diagnosis: Problems: (1) Anxiety disorder (2) Bipolar affective, mixed, sev w/ psych (3) Schizoaffective disorder, chronic condition with acute exacerbation (4) Schizophrenia, disorganized, subchronic with acute exacerbation JASS HUNG MD December 26, 2017 22:47
--- NOTE | 2017-12-26 23:18 | PDOC ---
Exam Note: Tay Note: Please also refer to the separate dictated note~for this date of service dictated separately.~Patient seen individually. Discussed the patient with Nursing staff reviewed the chart.~Reviewed interim history and current functioning. Reviewed vital signs,~Labs/ Radiology~and current medications noted below. Continue current treatment with the changes noted in the dictated addendum note Assessment: Vital Signs: Vital Signs Date Time Temp Pulse Resp B/P (MAP) Pulse Ox O2 Delivery O2 Flow Rate FiO2 12/26/17 21:30 96 Room Air 12/26/17 19:35 101 133/64 12/26/17 16:37 97.8 18 I&O Intake and Output 12/26/17 07:00 Intake Total 1220 ml Balance 1220 ml Intake Oral 1220 ml # Bowel Movements 1 Labs: Laboratory Tests Test 12/26/17 04:48 12/26/17 08:06 12/26/17 12:13 12/26/17 17:17 Glucose (Fingerstick) 167 mg/dL (70-99) H 134 mg/dL (70-99) H 240 mg/dL (70-99) H 195 mg/dL (70-99) H Test 12/26/17 19:42 Glucose (Fingerstick) 241 mg/dL (70-99) H Current Medications: Meds: Current Medications Acetaminophen (Tylenol) 650 mg PRN Q6HRS PRN PO PAIN / TEMP; Start 12/20/17 at 23:30; Status Cancel Multi-Ingredient Ointment (Analgesic [place]) 1 caridad PRN QID PRN TP MUSCLE PAIN; Start 12/20/17 at 23:30 Al Hydroxide/Mg Hydroxide (Mylanta Plus Xs) 15 ml PRN AFTMEALHC PRN PO DYSPEPSIA; Start 12/20/17 at 23:30 Magnesium Hydroxide (Milk Of Magnesia) 2,400 mg PRN QHS PRN PO CONSTIPATION; Start 12/20/17 at 23:30 Olanzapine (ZyPREXA ZYDIS) 5 mg PRN Q2HR PRN PO PSYCHOSIS; Start 12/21/17 at 01 :00 Aripiprazole (Abilify) 10 mg BID PO Last administered on 12/26/17at 08:44; Start 12/21/17 at 09:00; Stop 12/26/17 at 19:47; Status DC Clozapine (Clozaril) 75 mg QHS PO Last administered on 12/21/17at 20:40; Start 12/21/17 at 21:00; Stop 12/22/17 at 19:20; Status DC Divalproex Sodium (Depakote Er) 1,500 mg QHS PO Last administered on 12/24/17at 20:23; Start 12/21/17 at 21:00; Stop 12/25/17 at 19:22; Status DC Fluvoxamine Maleate (Luvox) 50 mg QHS PO Last administered on 12/26/17 19:34; Start 12/21/17 at 21:00 Haloperidol (Haldol) 15 mg BID PO Last administered on 12/26/17 19:34; Start 12/21/17 at 09:00 Haloperidol Lactate (Haldol) 5 mg PRN Q4HRS PRN IM AGITATION; Start 12/21/17 at 01:00; Stop 12/21/17 at 01:43; Status DC Clonidine HCl (Catapres) 0.1 mg HS PO Last administered on 12/26/17at 19:35; Start 12/21/17 at 21:00 Gabapentin (Neurontin) 300 mg TID PO Last administered on 12/26/17 19:35; Start 12/21/17 at 10:00 Insulin Human Lispro (HumaLOG) 4 units DAILYWBKFT SQ Last administered on at 08:00; Start 12/22/17 at 08:00 Insulin Human Lispro (HumaLOG) 8 units DAILYBFRLUN SQ Last administered on 12/26at 15:18; Start 12/21/17 at 11:30 Insulin Human Lispro (HumaLOG) 10 units DAILYBFRSUP SQ Last administered on at 17:00; Start 12/21/17 at 17:00 Albuterol/ Ipratropium (Duoneb) 3 ml RTQID NEB Last administered on 12/26/17 21:28; Start 12/21/17 at 12:00 Lactobacillus Rhamnosus (Culturelle) 1 cap BID PO Last administered on 19:34; Start 12/21/17 at 10:00 Lisinopril (Prinivil) 20 mg DAILY PO Last administered on 12/26/17 08:46; Start 12/21/17 at 10:00 Acetaminophen (Tylenol) 500 mg PRN Q6HRS PRN PO PAIN; Start 12/21/17 at 09:30 Amlodipine Besylate (Norvasc) 10 mg DAILY PO Last administered on 12/26/17 08: 45; Start 12/21/17 at 10:00 Cetirizine HCl (ZyrTEC) 10 mg DAILY PO Last administered on 12/26/17 08:47; Start 12/21/17 at 10:00 Docusate Sodium (Colace) 100 mg DAILY PO Last administered on 12/26/17 08:44; Start 12/21/17 at 10:00 Docusate Sodium (Colace) 100 mg PRN DAILY PRN PO CONSTIPATION; Start 12/21/17 at 10:00 Famotidine (Pepcid) 20 mg BID PO Last administered on 12/26/17at 19:35; Start at 10:00 Fluticasone Propionate (Flonase) 2 spray PRN DAILY PRN NS ALLERGIES; Start at 09:30 Furosemide (Lasix) 40 mg DAILY PO Last administered on 12/26/17 08:44; Start 12/21/17 at 10:00 Gemfibrozil (Lopid) 600 mg BID PO Last administered on 12/26/17 19:34; Start 12/21/17 at 10:00 Insulin Glargine (Lantus) 16 units HS SQ Last administered on 12/26/17 20:45; Start 12/21/17 at 21:00 Insulin Glargine (Lantus) 26 units DAILYWBKFT SQ Last administered on at 08:00; Start 12/22/17 at 08:00 Magnesium Oxide (Magnesium Oxide) 400 mg DAILY PO Last administered on 08:47; Start 12/21/17 at 10:00 Multivitamins/ Calcium (Thera-M Plus) 1 tab DAILY PO Last administered on 08:44; Start 12/21/17 at 10:00 Pioglitazone HCl (Actos) 30 mg DAILY PO Last administered on 12/26/17 08:46; Start 12/21/17 at 10:00 Polyethylene Glycol (miraLAX) 1 gm DAILY PO Last administered on 12/21/17 10: 12; Start 12/21/17 at 10:00; Stop 12/22/17 at 09:12; Status DC Potassium Chloride (Klor-Con) 10 meq DAILYWBKFT PO Last administered on 08:44; Start 12/22/17 at 10:00 Sennosides (Senna) 8.6 mg BID PO Last administered on 12/26/17 19:35; Start at 10:00 Simethicone (Gas-X) 120 mg TID PO Last administered on 12/26/17 19:34; Start 12/21/17 at 10:00 Trazodone HCl (Desyrel) 12.5 mg TID@0900,1300,1700 PO Last administered on 12/26 17:00; Start 12/21/17 at 10:00 Artificial Tears (Artificial Tears) 1 drop PRN Q15MIN PRN OU DRY EYE Last administered on 12/22/17 15:57; Start 12/21/17 at 16:00 Polyethylene Glycol (miraLAX) 17 gm DAILY PO Last administered on 12/26/17 08: 43; Start 12/23/17 at 09:00 Clozapine (Clozaril) 100 mg QHS PO Last administered on 12/26/17 19:35; Start 12/22/17 at 21:00 Divalproex Sodium (Depakote Er) 1,750 mg QHS PO ; Start 12/25/17 at 21:00; Stop 12/25/17 at 21:00; Status DC Divalproex Sodium (Depakote Er) 1,500 mg QHS PO Last administered on 12/26/17 19:32; Start 12/25/17 at 21:00 Divalproex Sodium (Depakote Er) 250 mg QHS PO Last administered on 12/26/17 19 :33; Start 12/25/17 at 21:00 Active Scripts Active Reported Duoneb 0.5-3(2.5) Mg/3 Ml (Albuterol/Ipratropium) 3 Ml Ampul.neb 3 Ml NEB RTQID Trazodone Hcl 50 Mg Tablet 12.5 Mg PO TID@0900,1300,1700 Fluvoxamine Maleate 50 Mg Tablet 50 Mg PO QHS Clozaril (Clozapine) 25 Mg Tablet 75 Mg PO QHS Miralax (Polyethylene Glycol 3350) 17 Gm Powd.pack 1 Packet PO DAILY Zyprexa Zydis (Olanzapine) 5 Mg Tab.rapdis 5 Mg PO PRN Q2HR PRN Depakote Er (Divalproex Sodium) 500 Mg Tab.er.24h 1,500 Tab PO QHS Culturelle (Lactobacillus Rhamnosus Gg) 1 Each Cap.sprink 1 Each PO BID Multi Vitamin Daily (Multivitamin) 1 Each Tablet 1 Tab PO DAILY Simethicone 125 Mg Capsule 120 Mg PO TID Senna Lax (Sennosides) 8.6 Mg Tablet 8.6 Mg PO BID Potassium Chloride 10 Meq Tablet.er 10 Meq PO DAILYWBKFT Actos (Pioglitazone Hcl) 30 Mg Tablet 30 Mg PO DAILY Pepcid (Famotidine) 20 Mg Tablet 20 Mg PO BID Novolog Flexpen (Insulin Aspart) 100 Unit/1 Ml Insuln.pen 8 Units SQ DAILYBFRLUN Novolog Flexpen (Insulin Aspart) 100 Unit/1 Ml Insuln.pen 4 Units SQ DAILYWBKFT Novolog Flexpen (Insulin Aspart) 100 Unit/1 Ml Insuln.pen 10 Unit SQ DAILYBFRSUP Mapap (Acetaminophen) 500 Mg Tablet 500 Mg PO PRN Q6HRS PRN Magnesium Oxide 400 Mg Tablet 400 Mg PO DAILY Lisinopril 20 Mg Tablet 20 Mg PO DAILY Levemir Flextouch (Insulin Detemir) 100 Unit/1 Ml Insuln.pen 26 Units SQ DAILYWBKFT Levemir Flextouch (Insulin Detemir) 100 Unit/1 Ml Insuln.pen 16 Units SQ HS Lasix (Furosemide) 40 Mg Tablet 40 Mg PO DAILY Haloperidol 10 Mg Tablet 15 Mg PO BID Haloperidol Lactate 5 Mg/1 Ml Vial 5 Mg IM PRN Q4HRS PRN Gemfibrozil 600 Mg Tablet 600 Mg PO BID Gabapentin 300 Mg Capsule 300 Mg PO TID Flonase Allergy Relief (Fluticasone Propionate) 9.9 Ml [place].susp 2 Sprays NS PRN PRN Docusate Sodium 100 Mg Capsule 100 Mg PO DAILY Docusate Sodium 100 Mg Capsule 100 Mg PO PRN DAILY PRN Clonidine Hcl 0.1 Mg Tablet 0.1 Mg PO HS Cetirizine Hcl 10 Mg Tablet 10 Mg PO DAILY Aspirin Ec (Aspirin) 81 Mg Tablet. 81 Mg PO DAILYWBKFT Amlodipine Besylate 10 Mg Tablet 10 Mg PO DAILY Abilify (Aripiprazole) 15 Mg Tablet 10 Mg PO BID I have reviewed the current psychotropics carefully including drug interactions. Risk benefit ratio favors no change other than as noted in my dictated progress note. Diagnosis: Problems: (1) Anxiety disorder (2) Bipolar affective, mixed, sev w/ psych (3) Schizoaffective disorder, chronic condition with acute exacerbation (4) Schizophrenia, disorganized, subchronic with acute exacerbation JASS HUNG MD December 26, 2017 23:18
[2017-12-27 06:03] VITALS: BP 144/76
[2017-12-27] MEDS: IPRATRPIUM/ALBUTEROL 0.5/2.5MG 3 ML NEBU. NEB SCH ×4 (06:04→19:57)
[2017-12-27] MEDS: GEMFIBROZIL 600 MG TABLET. PO SCH ×2 (09:10→20:21)
[2017-12-27] MEDS: SENNOSIDES 8.6 MG TABLET PO SCH ×2 (09:10→20:21)
[2017-12-27] MEDS: CETIRIZINE HCL 10 MG TABLET PO SCH (09:10)
[2017-12-27] MEDS: amLODIPine BESYLATE 10 MG TABLET PO SCH (09:11)
[2017-12-27] MEDS: traZODone 50 MG TABLET. PO SCH ×3 (09:11→17:20)
[2017-12-27] MEDS: GABAPENTIN 300 MG CAPSULE. PO SCH ×3 (09:11→20:25)
[2017-12-27] MEDS: MULTIVITAMIN with MINERAL TABLET. PO SCH (09:11)
[2017-12-27] MEDS: LACTOBACILLUS RHAMNOSUS GG 1 CAPSULE. PO SCH ×2 (09:11→20:22)
[2017-12-27] MEDS: FAMOTIDINE 20 MG TABLET PO SCH ×2 (09:11→20:21)
[2017-12-27] MEDS: POTASSIUM CHLORIDE 10 MEQ TABLET.ER. PO SCH (09:11)
[2017-12-27] MEDS: DOCUSATE SODIUM 100 MG CAPSULE PO SCH (09:11)
[2017-12-27] MEDS: LISINOPRIL 20 MG TABLET PO SCH (09:12)
[2017-12-27] MEDS: SIMETHICONE 80 MG TAB.CHEW PO SCH ×3 (09:12→20:22)
[2017-12-27] MEDS: MAGNESIUM OXIDE 400 MG TABLET PO SCH (09:12)
[2017-12-27] MEDS: FUROSEMIDE 40 MG TABLET PO SCH (09:12)
[2017-12-27] MEDS: PIOGLITAZONE 15 MG TABLET. PO SCH (09:12)
[2017-12-27] MEDS: HALOPERIDOL 5 MG TABLET PO SCH ×2 (09:12→20:21)
[2017-12-27] MEDS: POLYETHYLENE GLYCOL 3350 17 GM PACKET. PO SCH (09:13)
[2017-12-27] MEDS: INSULIN GLARGINE 300 UNITS/3 ML INSULN.PEN. SQ SCH ×2 (09:15→20:27)
[2017-12-27] MEDS: INSULIN LISPRO 300 UNITS/3 ML INSULN.PEN. SQ SCH ×3 (09:15→17:21)
[2017-12-27 15:41] VITALS: BP 136/63
[2017-12-27] MEDS: cloZAPine 100 MG TABLET PO SCH (20:22)
[2017-12-27] MEDS: DIVALPROEX ER 500 MG TAB.ER.24H PO SCH (20:24)
[2017-12-27] MEDS: DIVALPROEX ER 250 MG TAB.ER.24H. PO SCH (20:25)
[2017-12-27] MEDS: cloNIDine HCL 0.1 MG TABLET PO SCH (20:25)
--- NOTE | 2017-12-27 20:49 | PDOC ---
Exam Note: Tay Note: Please also refer to the separate dictated note~for this date of service dictated separately.~Patient seen individually. Discussed the patient with Nursing staff reviewed the chart.~Reviewed interim history and current functioning. Reviewed vital signs,~Labs/ Radiology~and current medications noted below. Continue current treatment with the changes noted in the dictated addendum note Assessment: Vital Signs: Vital Signs Date Time Temp Pulse Resp B/P (MAP) Pulse Ox O2 Delivery O2 Flow Rate FiO2 12/27/17 20:25 90 136/63 12/27/17 19:55 93 Room Air 12/27/17 15:41 97.1 18 I&O Intake and Output 12/27/17 07:00 Intake Total 1720 ml Balance 1720 ml Intake Oral 1720 ml Labs: Laboratory Tests Test 12/27/17 04:57 12/27/17 07:13 12/27/17 11:30 12/27/17 16:30 Glucose (Fingerstick) 176 mg/dL (70-99) H 189 mg/dL (70-99) H 350 mg/dL (70-99) H 308 mg/dL (70-99) H Test 12/27/17 19:18 Glucose (Fingerstick) 270 mg/dL (70-99) H Current Medications: Meds: Current Medications Acetaminophen (Tylenol) 650 mg PRN Q6HRS PRN PO PAIN / TEMP; Start 12/20/17 at 23:30; Status Cancel Multi-Ingredient Ointment (Analgesic [place]) 1 caridad PRN QID PRN TP MUSCLE PAIN; Start 12/20/17 at 23:30 Al Hydroxide/Mg Hydroxide (Mylanta Plus Xs) 15 ml PRN AFTMEALHC PRN PO DYSPEPSIA; Start 12/20/17 at 23:30 Magnesium Hydroxide (Milk Of Magnesia) 2,400 mg PRN QHS PRN PO CONSTIPATION; Start 12/20/17 at 23:30 Olanzapine (ZyPREXA ZYDIS) 5 mg PRN Q2HR PRN PO PSYCHOSIS; Start 12/21/17 at 01 :00 Aripiprazole (Abilify) 10 mg BID PO Last administered on 12/26/17at 08:44; Start 12/21/17 at 09:00; Stop 12/26/17 at 19:47; Status DC Clozapine (Clozaril) 75 mg QHS PO Last administered on 12/21/17 20:40; Start 12/21/17 at 21:00; Stop 12/22/17 at 19:20; Status DC Divalproex Sodium (Depakote Er) 1,500 mg QHS PO Last administered on 12/24/17 20:23; Start 12/21/17 at 21:00; Stop 12/25/17 at 19:22; Status DC Fluvoxamine Maleate (Luvox) 50 mg QHS PO Last administered on 12/27/17 20:21; Start 12/21/17 at 21:00 Haloperidol (Haldol) 15 mg BID PO Last administered on 12/27/17 20:21; Start 12/21/17 at 09:00 Haloperidol Lactate (Haldol) 5 mg PRN Q4HRS PRN IM AGITATION; Start 12/21/17 at 01:00; Stop 12/21/17 at 01:43; Status DC Clonidine HCl (Catapres) 0.1 mg HS PO Last administered on 12/27/17 20:25; Start 12/21/17 at 21:00 Gabapentin (Neurontin) 300 mg TID PO Last administered on 12/27/17 20:25; Start 12/21/17 at 10:00 Insulin Human Lispro (HumaLOG) 4 units DAILYWBKFT SQ Last administered on 09:15; Start 12/22/17 at 08:00 Insulin Human Lispro (HumaLOG) 8 units DAILYBFRLUN SQ Last administered on 12/27at 12:47; Start 12/21/17 at 11:30 Insulin Human Lispro (HumaLOG) 10 units DAILYBFRSUP SQ Last administered on 17:21; Start 12/21/17 at 17:00 Albuterol/ Ipratropium (Duoneb) 3 ml RTQID NEB Last administered on 12/27/17 19:57; Start 12/21/17 at 12:00 Lactobacillus Rhamnosus (Culturelle) 1 cap BID PO Last administered on 20:22; Start 12/21/17 at 10:00 Lisinopril (Prinivil) 20 mg DAILY PO Last administered on 12/27/17 09:12; Start 12/21/17 at 10:00 Acetaminophen (Tylenol) 500 mg PRN Q6HRS PRN PO PAIN; Start 12/21/17 at 09:30 Amlodipine Besylate (Norvasc) 10 mg DAILY PO Last administered on 12/27/17 09: 11; Start 12/21/17 at 10:00 Cetirizine HCl (ZyrTEC) 10 mg DAILY PO Last administered on 12/27/17 09:10; Start 12/21/17 at 10:00 Docusate Sodium (Colace) 100 mg DAILY PO Last administered on 12/27/17 09:11; Start 12/21/17 at 10:00 Docusate Sodium (Colace) 100 mg PRN DAILY PRN PO CONSTIPATION; Start 12/21/17 at 10:00 Famotidine (Pepcid) 20 mg BID PO Last administered on 12/27/17 20:21; Start at 10:00 Fluticasone Propionate (Flonase) 2 spray PRN DAILY PRN NS ALLERGIES; Start at 09:30 Furosemide (Lasix) 40 mg DAILY PO Last administered on 12/27/17 09:12; Start 12/21/17 at 10:00 Gemfibrozil (Lopid) 600 mg BID PO Last administered on 12/27/17 20:21; Start 12/21/17 at 10:00 Insulin Glargine (Lantus) 16 units HS SQ Last administered on 12/27/17 20:27; Start 12/21/17 at 21:00 Insulin Glargine (Lantus) 26 units DAILYWBKFT SQ Last administered on 09:15; Start 12/22/17 at 08:00 Magnesium Oxide (Magnesium Oxide) 400 mg DAILY PO Last administered on 09:12; Start 12/21/17 at 10:00 Multivitamins/ Calcium (Thera-M Plus) 1 tab DAILY PO Last administered on 09:11; Start 12/21/17 at 10:00 Pioglitazone HCl (Actos) 30 mg DAILY PO Last administered on 12/27/17 09:12; Start 12/21/17 at 10:00 Polyethylene Glycol (miraLAX) 1 gm DAILY PO Last administered on 12/21/17 10: 12; Start 12/21/17 at 10:00; Stop 12/22/17 at 09:12; Status DC Potassium Chloride (Klor-Con) 10 meq DAILYWBKFT PO Last administered on 09:11; Start 12/22/17 at 10:00 Sennosides (Senna) 8.6 mg BID PO Last administered on 12/27/17 20:21; Start at 10:00 Simethicone (Gas-X) 120 mg TID PO Last administered on 12/27/17 20:22; Start 12/21/17 at 10:00 Trazodone HCl (Desyrel) 12.5 mg TID@0900,1300,1700 PO Last administered on 12/27 17:20; Start 12/21/17 at 10:00 Artificial Tears (Artificial Tears) 1 drop PRN Q15MIN PRN OU DRY EYE Last administered on 12/22/17 15:57; Start 12/21/17 at 16:00 Polyethylene Glycol (miraLAX) 17 gm DAILY PO Last administered on 12/27/17 09: 13; Start 12/23/17 at 09:00 Clozapine (Clozaril) 100 mg QHS PO Last administered on 12/27/17 20:22; Start 12/22/17 at 21:00 Divalproex Sodium (Depakote Er) 1,750 mg QHS PO ; Start 12/25/17 at 21:00; Stop 12/25/17 at 21:00; Status DC Divalproex Sodium (Depakote Er) 1,500 mg QHS PO Last administered on 12/27/17 20:24; Start 12/25/17 at 21:00 Divalproex Sodium (Depakote Er) 250 mg QHS PO Last administered on 12/27/17 20 :25; Start 12/25/17 at 21:00 Active Scripts Active Reported Duoneb 0.5-3(2.5) Mg/3 Ml (Albuterol/Ipratropium) 3 Ml Ampul.neb 3 Ml NEB RTQID Trazodone Hcl 50 Mg Tablet 12.5 Mg PO TID@0900,1300,1700 Fluvoxamine Maleate 50 Mg Tablet 50 Mg PO QHS Clozaril (Clozapine) 25 Mg Tablet 75 Mg PO QHS Miralax (Polyethylene Glycol 3350) 17 Gm Powd.pack 1 Packet PO DAILY Zyprexa Zydis (Olanzapine) 5 Mg Tab.rapdis 5 Mg PO PRN Q2HR PRN Depakote Er (Divalproex Sodium) 500 Mg Tab.er.24h 1,500 Tab PO QHS Culturelle (Lactobacillus Rhamnosus Gg) 1 Each Cap.sprink 1 Each PO BID Multi Vitamin Daily (Multivitamin) 1 Each Tablet 1 Tab PO DAILY Simethicone 125 Mg Capsule 120 Mg PO TID Senna Lax (Sennosides) 8.6 Mg Tablet 8.6 Mg PO BID Potassium Chloride 10 Meq Tablet.er 10 Meq PO DAILYWBKFT Actos (Pioglitazone Hcl) 30 Mg Tablet 30 Mg PO DAILY Pepcid (Famotidine) 20 Mg Tablet 20 Mg PO BID Novolog Flexpen (Insulin Aspart) 100 Unit/1 Ml Insuln.pen 8 Units SQ DAILYBFRLUN Novolog Flexpen (Insulin Aspart) 100 Unit/1 Ml Insuln.pen 4 Units SQ DAILYWBKFT Novolog Flexpen (Insulin Aspart) 100 Unit/1 Ml Insuln.pen 10 Unit SQ DAILYBFRSUP Mapap (Acetaminophen) 500 Mg Tablet 500 Mg PO PRN Q6HRS PRN Magnesium Oxide 400 Mg Tablet 400 Mg PO DAILY Lisinopril 20 Mg Tablet 20 Mg PO DAILY Levemir Flextouch (Insulin Detemir) 100 Unit/1 Ml Insuln.pen 26 Units SQ DAILYWBKFT Levemir Flextouch (Insulin Detemir) 100 Unit/1 Ml Insuln.pen 16 Units SQ HS Lasix (Furosemide) 40 Mg Tablet 40 Mg PO DAILY Haloperidol 10 Mg Tablet 15 Mg PO BID Haloperidol Lactate 5 Mg/1 Ml Vial 5 Mg IM PRN Q4HRS PRN Gemfibrozil 600 Mg Tablet 600 Mg PO BID Gabapentin 300 Mg Capsule 300 Mg PO TID Flonase Allergy Relief (Fluticasone Propionate) 9.9 Ml [place].susp 2 Sprays NS PRN PRN Docusate Sodium 100 Mg Capsule 100 Mg PO DAILY Docusate Sodium 100 Mg Capsule 100 Mg PO PRN DAILY PRN Clonidine Hcl 0.1 Mg Tablet 0.1 Mg PO HS Cetirizine Hcl 10 Mg Tablet 10 Mg PO DAILY Aspirin Ec (Aspirin) 81 Mg Tablet. 81 Mg PO DAILYWBKFT Amlodipine Besylate 10 Mg Tablet 10 Mg PO DAILY Abilify (Aripiprazole) 15 Mg Tablet 10 Mg PO BID I have reviewed the current psychotropics carefully including drug interactions. Risk benefit ratio favors no change other than as noted in my dictated progress note. Diagnosis: Problems: (1) Anxiety disorder (2) Bipolar affective, mixed, sev w/ psych (3) Schizoaffective disorder, chronic condition with acute exacerbation (4) Schizophrenia, disorganized, subchronic with acute exacerbation JASS HUNG MD December 27, 2017 20:49
[2017-12-28] MEDS: IPRATRPIUM/ALBUTEROL 0.5/2.5MG 3 ML NEBU. NEB SCH ×4 (05:54→20:00)
[2017-12-28 06:12] VITALS: BP 108/58
--- NOTE | 2017-12-28 06:48 | PN ---
DATE: 12/25/2017 PSYCHIATRIC PROGRESS NOTE This is a late entry of 12/25/2017 covers elements not covered in my initial note 12/25/2017. SUBJECTIVE: I met with the patient in the evening. The patient slept 7-1/2 hours, doing better, less attention seeking, compliant with medications. Valproic acid level 51. REVIEW OF SYSTEMS: No CV, , pulmonary, eye, ENT system symptoms on review. She has vague somatic symptoms. MENTAL STATUS EXAM: Oriented to herself and situation. Speech coherent, abstraction fair, computation impaired, language function intact, attention span short. Mood and affect somewhat anxious, labile, but improved. LABORATORY DATA: Reviewed. IMPRESSION: Unchanged from initial note. PLAN: Increase Depakote ER from 1500 mg at bedtime to 1750 at bedtime. Check CBC, CMP, valproic acid level in 3 days. Rest unchanged. MAN Prosper HUNG MD DR: KATIANA/alicia JOB#: [id number] / [id number]
[2017-12-28 07:53] LABS: BASO % 0 % (0-3); EOS # 0.4 x10^3/uL (0.0-0.7); EOS % 7 % (0-3); HEMATOCRIT 32.3 % (36.0-47.0); HEMOGLOBIN 10.3 g/dL (12.0-15.5); LYMPH # 1.9 x10^3/uL (1.0-4.8); LYMPH % 35 % (24-48); MEAN CORPUSCULAR HEMOGLOBIN 28 pg (25-35); MEAN CORPUSCULAR HGB CONC 32 g/dL (31-37); MEAN CORPUSCULAR VOLUME 86 fL (79-100); MONO # 0.5 x10^3/uL (0.0-1.1); MONO % 9 % (0-9); NEUT # 2.7 x10^3uL (1.8-7.7); NEUT % 49 % (31-73); PLATELET COUNT 213 x10^3/uL (140-400); RED BLOOD COUNT 3.76 x10^6/uL (3.50-5.40); RED CELL DISTRIBUTION WIDTH 16.2 % (11.5-14.5); WHITE BLOOD COUNT 5.5 x10^3/uL (4.0-11.0)
[2017-12-28] MEDS: INSULIN LISPRO 300 UNITS/3 ML INSULN.PEN. SQ SCH ×3 (08:00→17:19)
[2017-12-28] MEDS: GABAPENTIN 300 MG CAPSULE. PO SCH ×3 (08:20→21:07)
[2017-12-28] MEDS: POTASSIUM CHLORIDE 10 MEQ TABLET.ER. PO SCH (08:20)
[2017-12-28] MEDS: MAGNESIUM OXIDE 400 MG TABLET PO SCH (08:20)
[2017-12-28] MEDS: FAMOTIDINE 20 MG TABLET PO SCH ×2 (08:21→21:10)
[2017-12-28] MEDS: SIMETHICONE 80 MG TAB.CHEW PO SCH ×3 (08:21→21:07)
[2017-12-28] MEDS: GEMFIBROZIL 600 MG TABLET. PO SCH ×2 (08:23→21:07)
[2017-12-28] MEDS: HALOPERIDOL 5 MG TABLET PO SCH ×2 (08:23→21:07)
[2017-12-28] MEDS: LACTOBACILLUS RHAMNOSUS GG 1 CAPSULE. PO SCH ×2 (08:23→21:04)
[2017-12-28] MEDS: traZODone 50 MG TABLET. PO SCH ×3 (08:24→16:56)
[2017-12-28] MEDS: DOCUSATE SODIUM 100 MG CAPSULE PO SCH (08:25)
[2017-12-28] MEDS: SENNOSIDES 8.6 MG TABLET PO SCH ×2 (08:25→21:08)
[2017-12-28] MEDS: FUROSEMIDE 40 MG TABLET PO SCH (08:25)
[2017-12-28] MEDS: MULTIVITAMIN with MINERAL TABLET. PO SCH (08:25)
[2017-12-28] MEDS: PIOGLITAZONE 15 MG TABLET. PO SCH (08:25)
[2017-12-28] MEDS: CETIRIZINE HCL 10 MG TABLET PO SCH (08:27)
[2017-12-28] MEDS: amLODIPine BESYLATE 10 MG TABLET PO SCH (08:27)
[2017-12-28] MEDS: LISINOPRIL 20 MG TABLET PO SCH (08:28)
[2017-12-28] MEDS: POLYETHYLENE GLYCOL 3350 17 GM PACKET. PO SCH (08:28)
[2017-12-28] MEDS: INSULIN GLARGINE 300 UNITS/3 ML INSULN.PEN. SQ SCH ×2 (08:36→21:12)
[2017-12-28 08:39] LABS: ALBUMIN/GLOBULIN RATIO 0.8 (1.0-1.7); ALK PHOS 234 U/L (46-116); ALT (SGPT) 21 U/L (14-59); ANION GAP 7 (6-14); AST (SGOT) 12 U/L (15-37); BLOOD UREA NITROGEN 37 mg/dL (7-20); BUN/CREATININE RATIO 17 (6-20); CALCIUM 8.9 mg/dL (8.5-10.1); CARBON DIOXIDE 32 mmol/L (21-32); CHLORIDE 105 mmol/L (98-107); CREATININE 2.2 mg/dL (0.6-1.0); GFR 28.6; GLUCOSE 238 mg/dL (70-99); POTASSIUM 4.9 mmol/L (3.5-5.1); SODIUM 144 mmol/L (136-145); TOTAL BILIRUBIN 0.2 mg/dL (0.2-1.0); TOTAL PROTEIN 6.8 g/dL (6.4-8.2)
[2017-12-28 08:58] LABS: VAL ACID 63 mcg/mL (50-100)
[2017-12-28 09:13] VITALS: BP 116/62
--- NOTE | 2017-12-28 13:09 | PN ---
DATE: 12/26/2017 PSYCHIATRIC PROGRESS NOTE This late entry 12/26/2017 covers elements not covered in my initial note 12/26/2017. SUBJECTIVE: I met with the patient in the evening. The patient has been somewhat obsessed regarding discharge, remains withdrawn, irritable at times, but less so than before. REVIEW OF SYSTEMS: No CV, , pulmonary, eye, ENT system symptoms on review. Reliability varies. MENTAL STATUS EXAM: Reasonably oriented to herself and situation. Speech moderate latency, at times pressured. Abstraction fair, computation impaired, language function intact, attention span short. Mood and affect somewhat anxious, labile at times, but showing improvement. LABORATORIES: Reviewed. IMPRESSION: Schizoaffective disorder, bipolar type, mixed with psychotic features, in partial remission. PLAN: The patient is on Clozaril 100 mg p.o. at bedtime. Depakote has been adjusted and repeat level will be due on 12/29/2017, last level was 51. We will go ahead and stop the Abilify. Continue Clozaril, Depakote, Luvox, trazodone scheduled, Haldol is 15 mg b.i.d. We will try and reduce this next once we get the Clozaril to a more respective dosage. MAN Prosper HUNG MD DR: KATIANA/alicia JOB#: [id number] / [id number]
--- NOTE | 2017-12-28 15:01 | PN ---
DATE: 12/27/2017 PSYCHIATRIC PROGRESS NOTE This note covers elements not covered in my initial note 12/27/2017. SUBJECTIVE: The patient slept 3-3/4 hour, somewhat anxious, attention seeking not up to the nursing station as much as she used to. REVIEW OF SYSTEMS: No CV, , pulmonary, eye, ENT system symptoms on review. MENTAL STATUS EXAM: Oriented to herself and situation. Speech coherent, less pressured. Abstraction fair, computation impaired, language function intact. Mood and affect is less grandiose. LABORATORIES: Reviewed. IMPRESSION: Schizoaffective disorder, bipolar type, mixed with psychotic features, in partial remission. PLAN: Start trazodone 50 mg at bedtime, may repeat x 1 p.r.n. for insomnia. We will check a WBC, absolute neutrophil count on 12/28/2017, if these are unremarkable, we will increase the Clozaril to 125 mg p.o. at bedtime. Continue rest unchanged per initial note. MAN Prosper HUNG MD DR: KATIANA/alicia JOB#: [id number] / [id number]
[2017-12-28 16:19] VITALS: BP 147/66
--- NOTE | 2017-12-28 20:46 | PDOC ---
Exam Note: Tay Note: Please also refer to the separate dictated note~for this date of service dictated separately.~Patient seen individually. Discussed the patient with Nursing staff reviewed the chart.~Reviewed interim history and current functioning. Reviewed vital signs,~Labs/ Radiology~and current medications noted below. Continue current treatment with the changes noted in the dictated addendum note Assessment: Vital Signs: Vital Signs Date Time Temp Pulse Resp B/P (MAP) Pulse Ox O2 Delivery O2 Flow Rate FiO2 12/28/17 16:19 98.2 100 20 147/66 (93) 95 12/27/17 19:55 Room Air I&O Intake and Output 12/28/17 07:00 Intake Total 1320 ml Balance 1320 ml Intake Oral 1320 ml # Bowel Movements 1 Labs: Laboratory Tests Test 12/28/17 07:35 12/28/17 08:07 12/28/17 11:16 12/28/17 16:28 White Blood Count 5.5 x10^3/uL (4.0-11.0) Red Blood Count 3.76 x10^6/uL (3.50-5.40) Hemoglobin 10.3 g/dL (12.0-15.5) L Hematocrit 32.3 % (36.0-47.0) L Mean Corpuscular Volume 86 fL (79-100) Mean Corpuscular Hemoglobin 28 pg (25-35) Mean Corpuscular Hemoglobin Concent 32 g/dL (31-37) Red Cell Distribution Width 16.2 % (11.5-14.5) H Platelet Count 213 x10^3/uL (140-400) Neutrophils (%) (Auto) 49 % (31-73) Lymphocytes (%) (Auto) 35 % (24-48) Monocytes (%) (Auto) 9 % (0-9) Eosinophils (%) (Auto) 7 % (0-3) H Basophils (%) (Auto) 0 % (0-3) Neutrophils # (Auto) 2.7 x10^3uL (1.8-7.7) Lymphocytes # (Auto) 1.9 x10^3/uL (1.0-4.8) Monocytes # (Auto) 0.5 x10^3/uL (0.0-1.1) Eosinophils # (Auto) 0.4 x10^3/uL (0.0-0.7) Basophils # (Auto) 0.0 x10^3/uL (0.0-0.2) Sodium Level 144 mmol/L (136-145) Potassium Level 4.9 mmol/L (3.5-5.1) Chloride Level 105 mmol/L (98-107) Carbon Dioxide Level 32 mmol/L (21-32) Anion Gap 7 (6-14) Blood Urea Nitrogen 37 mg/dL (7-20) H Creatinine 2.2 mg/dL (0.6-1.0) H Estimated GFR (Cockcroft-Gault) 28.6 BUN/Creatinine Ratio 17 (6-20) Glucose Level 238 mg/dL (70-99) H Calcium Level 8.9 mg/dL (8.5-10.1) Total Bilirubin 0.2 mg/dL (0.2-1.0) Aspartate Amino Transferase (AST) 12 U/L (15-37) L Alanine Aminotransferase (ALT) 21 U/L (14-59) Alkaline Phosphatase 234 U/L (46-116) H Total Protein 6.8 g/dL (6.4-8.2) Albumin 3.0 g/dL (3.4-5.0) L Albumin/Globulin Ratio 0.8 (1.0-1.7) L Valproic Acid Level 63 mcg/mL (50-100) Valproic Acid Last Dose Date 12/27/2017 Valproic Acid Last Dose Time 2100 Glucose (Fingerstick) 223 mg/dL (70-99) H 184 mg/dL (70-99) H 289 mg/dL (70-99) H Test 12/28/17 19:20 Glucose (Fingerstick) 355 mg/dL (70-99) H Current Medications: Meds: Current Medications Acetaminophen (Tylenol) 650 mg PRN Q6HRS PRN PO PAIN / TEMP; Start 12/20/17 at 23:30; Status Cancel Multi-Ingredient Ointment (Analgesic [place]) 1 caridad PRN QID PRN TP MUSCLE PAIN; Start 12/20/17 at 23:30 Al Hydroxide/Mg Hydroxide (Mylanta Plus Xs) 15 ml PRN AFTMEALHC PRN PO DYSPEPSIA; Start 12/20/17 at 23:30 Magnesium Hydroxide (Milk Of Magnesia) 2,400 mg PRN QHS PRN PO CONSTIPATION; Start 12/20/17 at 23:30 Olanzapine (ZyPREXA ZYDIS) 5 mg PRN Q2HR PRN PO PSYCHOSIS; Start 12/21/17 at 01 :00 Aripiprazole (Abilify) 10 mg BID PO Last administered on 12/26/17at 08:44; Start 12/21/17 at 09:00; Stop 12/26/17 at 19:47; Status DC Clozapine (Clozaril) 75 mg QHS PO Last administered on 12/21/17at 20:40; Start 12/21/17 at 21:00; Stop 12/22/17 at 19:20; Status DC Divalproex Sodium (Depakote Er) 1,500 mg QHS PO Last administered on 12/24/17at 20:23; Start 12/21/17 at 21:00; Stop 12/25/17 at 19:22; Status DC Fluvoxamine Maleate (Luvox) 50 mg QHS PO Last administered on 12/27/17at 20:21; Start 12/21/17 at 21:00 Haloperidol (Haldol) 15 mg BID PO Last administered on 12/28/17at 08:23; Start 12/21/17 at 09:00 Haloperidol Lactate (Haldol) 5 mg PRN Q4HRS PRN IM AGITATION; Start 12/21/17 at 01:00; Stop 12/21/17 at 01:43; Status DC Clonidine HCl (Catapres) 0.1 mg HS PO Last administered on 12/27/17at 20:25; Start 12/21/17 at 21:00 Gabapentin (Neurontin) 300 mg TID PO Last administered on 12/28/17at 12:45; Start 12/21/17 at 10:00 Insulin Human Lispro (HumaLOG) 4 units DAILYWBKFT SQ Last administered on at 08:00; Start 12/22/17 at 08:00 Insulin Human Lispro (HumaLOG) 8 units DAILYBFRLUN SQ Last administered on 12/28at 12:44; Start 12/21/17 at 11:30 Insulin Human Lispro (HumaLOG) 10 units DAILYBFRSUP SQ Last administered on at 17:19; Start 12/21/17 at 17:00 Albuterol/ Ipratropium (Duoneb) 3 ml RTQID NEB Last administered on 12/27/17 19:57; Start 12/21/17 at 12:00 Lactobacillus Rhamnosus (Culturelle) 1 cap BID PO Last administered on 08:23; Start 12/21/17 at 10:00 Lisinopril (Prinivil) 20 mg DAILY PO Last administered on 12/28/17 08:28; Start 12/21/17 at 10:00 Acetaminophen (Tylenol) 500 mg PRN Q6HRS PRN PO PAIN; Start 12/21/17 at 09:30 Amlodipine Besylate (Norvasc) 10 mg DAILY PO Last administered on 12/28/17 08: 27; Start 12/21/17 at 10:00 Cetirizine HCl (ZyrTEC) 10 mg DAILY PO Last administered on 12/28/17 08:27; Start 12/21/17 at 10:00 Docusate Sodium (Colace) 100 mg DAILY PO Last administered on 12/28/17 08:25; Start 12/21/17 at 10:00 Docusate Sodium (Colace) 100 mg PRN DAILY PRN PO CONSTIPATION; Start 12/21/17 at 10:00 Famotidine (Pepcid) 20 mg BID PO Last administered on 12/28/17 08:21; Start at 10:00 Fluticasone Propionate (Flonase) 2 spray PRN DAILY PRN NS ALLERGIES; Start at 09:30 Furosemide (Lasix) 40 mg DAILY PO Last administered on 12/28/17 08:25; Start 12/21/17 at 10:00 Gemfibrozil (Lopid) 600 mg BID PO Last administered on 12/28/17 08:23; Start 12/21/17 at 10:00 Insulin Glargine (Lantus) 16 units HS SQ Last administered on 12/27/17 20:27; Start 12/21/17 at 21:00 Insulin Glargine (Lantus) 26 units DAILYWBKFT SQ Last administered on at 08:36; Start 12/22/17 at 08:00 Magnesium Oxide (Magnesium Oxide) 400 mg DAILY PO Last administered on 08:20; Start 12/21/17 at 10:00 Multivitamins/ Calcium (Thera-M Plus) 1 tab DAILY PO Last administered on 08:25; Start 12/21/17 at 10:00 Pioglitazone HCl (Actos) 30 mg DAILY PO Last administered on 12/28/17 08:25; Start 12/21/17 at 10:00 Polyethylene Glycol (miraLAX) 1 gm DAILY PO Last administered on 12/21/17at 10: 12; Start 12/21/17 at 10:00; Stop 12/22/17 at 09:12; Status DC Potassium Chloride (Klor-Con) 10 meq DAILYWBKFT PO Last administered on 08:20; Start 12/22/17 at 10:00 Sennosides (Senna) 8.6 mg BID PO Last administered on 12/28/17 08:25; Start at 10:00 Simethicone (Gas-X) 120 mg TID PO Last administered on 12/28/17 12:46; Start 12/21/17 at 10:00 Trazodone HCl (Desyrel) 12.5 mg TID@0900,1300,1700 PO Last administered on 12/28 16:56; Start 12/21/17 at 10:00 Artificial Tears (Artificial Tears) 1 drop PRN Q15MIN PRN OU DRY EYE Last administered on 12/22/17 15:57; Start 12/21/17 at 16:00 Polyethylene Glycol (miraLAX) 17 gm DAILY PO Last administered on 12/28/17 08: 28; Start 12/23/17 at 09:00 Clozapine (Clozaril) 100 mg QHS PO Last administered on 12/27/17 20:22; Start 12/22/17 at 21:00; Stop 12/28/17 at 16:39; Status DC Divalproex Sodium (Depakote Er) 1,750 mg QHS PO ; Start 12/25/17 at 21:00; Stop 12/25/17 at 21:00; Status DC Divalproex Sodium (Depakote Er) 1,500 mg QHS PO Last administered on 12/27/17at 20:24; Start 12/25/17 at 21:00 Divalproex Sodium (Depakote Er) 250 mg QHS PO Last administered on 12/27/17at 20 :25; Start 12/25/17 at 21:00 Clozapine (Clozaril) 125 mg QHS PO ; Start 12/28/17 at 21:00; Status UNV Clozapine (Clozaril) 25 mg QHS PO ; Start 12/28/17 at 21:00 Clozapine (Clozaril) 100 mg QHS PO ; Start 12/28/17 at 21:00 Active Scripts Active Reported Duoneb 0.5-3(2.5) Mg/3 Ml (Albuterol/Ipratropium) 3 Ml Ampul.neb 3 Ml NEB RTQID Trazodone Hcl 50 Mg Tablet 12.5 Mg PO TID@0900,1300,1700 Fluvoxamine Maleate 50 Mg Tablet 50 Mg PO QHS Clozaril (Clozapine) 25 Mg Tablet 75 Mg PO QHS Miralax (Polyethylene Glycol 3350) 17 Gm Powd.pack 1 Packet PO DAILY Zyprexa Zydis (Olanzapine) 5 Mg Tab.rapdis 5 Mg PO PRN Q2HR PRN Depakote Er (Divalproex Sodium) 500 Mg Tab.er.24h 1,500 Tab PO QHS Culturelle (Lactobacillus Rhamnosus Gg) 1 Each Cap.sprink 1 Each PO BID Multi Vitamin Daily (Multivitamin) 1 Each Tablet 1 Tab PO DAILY Simethicone 125 Mg Capsule 120 Mg PO TID Senna Lax (Sennosides) 8.6 Mg Tablet 8.6 Mg PO BID Potassium Chloride 10 Meq Tablet.er 10 Meq PO DAILYWBKFT Actos (Pioglitazone Hcl) 30 Mg Tablet 30 Mg PO DAILY Pepcid (Famotidine) 20 Mg Tablet 20 Mg PO BID Novolog Flexpen (Insulin Aspart) 100 Unit/1 Ml Insuln.pen 8 Units SQ DAILYBFRLUN Novolog Flexpen (Insulin Aspart) 100 Unit/1 Ml Insuln.pen 4 Units SQ DAILYWBKFT Novolog Flexpen (Insulin Aspart) 100 Unit/1 Ml Insuln.pen 10 Unit SQ DAILYBFRSUP Mapap (Acetaminophen) 500 Mg Tablet 500 Mg PO PRN Q6HRS PRN Magnesium Oxide 400 Mg Tablet 400 Mg PO DAILY Lisinopril 20 Mg Tablet 20 Mg PO DAILY Levemir Flextouch (Insulin Detemir) 100 Unit/1 Ml Insuln.pen 26 Units SQ DAILYWBKFT Levemir Flextouch (Insulin Detemir) 100 Unit/1 Ml Insuln.pen 16 Units SQ HS Lasix (Furosemide) 40 Mg Tablet 40 Mg PO DAILY Haloperidol 10 Mg Tablet 15 Mg PO BID Haloperidol Lactate 5 Mg/1 Ml Vial 5 Mg IM PRN Q4HRS PRN Gemfibrozil 600 Mg Tablet 600 Mg PO BID Gabapentin 300 Mg Capsule 300 Mg PO TID Flonase Allergy Relief (Fluticasone Propionate) 9.9 Ml [place].susp 2 Sprays NS PRN PRN Docusate Sodium 100 Mg Capsule 100 Mg PO DAILY Docusate Sodium 100 Mg Capsule 100 Mg PO PRN DAILY PRN Clonidine Hcl 0.1 Mg Tablet 0.1 Mg PO HS Cetirizine Hcl 10 Mg Tablet 10 Mg PO DAILY Aspirin Ec (Aspirin) 81 Mg Tablet.dr 81 Mg PO DAILYWBKFT Amlodipine Besylate 10 Mg Tablet 10 Mg PO DAILY Abilify (Aripiprazole) 15 Mg Tablet 10 Mg PO BID I have reviewed the current psychotropics carefully including drug interactions. Risk benefit ratio favors no change other than as noted in my dictated progress note. Diagnosis: Problems: (1) Anxiety disorder (2) Bipolar affective, mixed, sev w/ psych (3) Schizoaffective disorder, chronic condition with acute exacerbation (4) Schizophrenia, disorganized, subchronic with acute exacerbation JASS HUNG MD December 28, 2017 20:46
[2017-12-28] MEDS ORDERED: cloZAPine 100 MG TABLET PO SCH (21:00)
[2017-12-28] MEDS: cloZAPine 100 MG TABLET PO SCH (21:04)
[2017-12-28] MEDS: cloNIDine HCL 0.1 MG TABLET PO SCH (21:04)
[2017-12-28] MEDS: DIVALPROEX ER 500 MG TAB.ER.24H PO SCH (21:05)
[2017-12-28] MEDS: cloZAPine 25 MG TABLET PO SCH (21:06)
[2017-12-28] MEDS: DIVALPROEX ER 250 MG TAB.ER.24H. PO SCH (21:06)
--- NOTE | 2017-12-29 04:18 | PN ---
DATE: 12/28/2017 SUBJECTIVE: The patient was seen today, met with the staff, chart reviewed and also covering for Dr. Caraballo. Staff reports some improvement. The patient is asking to go home. The patient is not presented with any major behavior problems. Still somewhat hypertalkative, not exhibiting any overt psychotic symptoms, also exhibiting poor impulse control, low frustration tolerance. The patient also has been noncompliant with the treatment at times. OBJECTIVE: VITAL SIGNS: Temperature 97, blood pressure 108/58, pulse 83, respirations 20, O2 sat 94%. GENERAL: Slept about 9 hours last night. Her appetite has improved. The patient is currently not exhibiting any side effects to the medications. CURRENT MEDICATIONS: Include, Depakote 250 mg at night and 1500 mg at night, Clozaril 100 mg at night, Luvox 50 mg at night, trazodone 12.5 mg t.i.d., gabapentin 300 mg t.i.d., Haldol 15 mg b.i.d., olanzapine 5 mg every 2 hours p.r.n. LABORATORY DATA: The patient's lab reviewed. Hemoglobin level was 10.3. The patient's glucose level was 238, alkaline phosphatase 234. ASSESSMENT: Schizoaffective disorder, bipolar type with psychotic features. PLAN: To continue with the treatment. DARIN COOPER MD DR: FRANCISCO/alicia JOB#: [id number] / [id number]
[2017-12-29] MEDS: IPRATRPIUM/ALBUTEROL 0.5/2.5MG 3 ML NEBU. NEB SCH ×4 (06:18→22:07)
[2017-12-29 06:35] VITALS: BP 104/61
[2017-12-29] MEDS: FUROSEMIDE 40 MG TABLET PO SCH (09:32)
[2017-12-29] MEDS: GEMFIBROZIL 600 MG TABLET. PO SCH ×2 (09:32→20:29)
[2017-12-29] MEDS: LACTOBACILLUS RHAMNOSUS GG 1 CAPSULE. PO SCH ×2 (09:32→20:29)
[2017-12-29] MEDS: PIOGLITAZONE 15 MG TABLET. PO SCH (09:32)
[2017-12-29] MEDS: POTASSIUM CHLORIDE 10 MEQ TABLET.ER. PO SCH (09:32)
[2017-12-29] MEDS: CETIRIZINE HCL 10 MG TABLET PO SCH (09:33)
[2017-12-29] MEDS: SENNOSIDES 8.6 MG TABLET PO SCH ×2 (09:33→20:29)
[2017-12-29] MEDS: MAGNESIUM OXIDE 400 MG TABLET PO SCH (09:33)
[2017-12-29] MEDS: FAMOTIDINE 20 MG TABLET PO SCH ×2 (09:33→20:29)
[2017-12-29] MEDS: DOCUSATE SODIUM 100 MG CAPSULE PO SCH (09:33)
[2017-12-29] MEDS: GABAPENTIN 300 MG CAPSULE. PO SCH ×3 (09:33→20:29)
[2017-12-29] MEDS: MULTIVITAMIN with MINERAL TABLET. PO SCH (09:33)
[2017-12-29] MEDS: SIMETHICONE 80 MG TAB.CHEW PO SCH ×3 (09:33→20:28)
[2017-12-29] MEDS: traZODone 50 MG TABLET. PO SCH ×3 (09:34→17:32)
[2017-12-29] MEDS: POLYETHYLENE GLYCOL 3350 17 GM PACKET. PO SCH (09:34)
[2017-12-29] MEDS: LISINOPRIL 20 MG TABLET PO SCH (09:38)
[2017-12-29] MEDS: amLODIPine BESYLATE 10 MG TABLET PO SCH (09:38)
[2017-12-29] MEDS: INSULIN GLARGINE 300 UNITS/3 ML INSULN.PEN. SQ SCH ×2 (09:40→20:31)
[2017-12-29] MEDS: INSULIN LISPRO 300 UNITS/3 ML INSULN.PEN. SQ SCH ×3 (09:41→17:34)
[2017-12-29] MEDS: HALOPERIDOL 5 MG TABLET PO SCH ×2 (09:45→20:28)
[2017-12-29 16:44] VITALS: BP 168/66
[2017-12-29] MEDS: cloZAPine 100 MG TABLET PO SCH (20:26)
[2017-12-29] MEDS: cloZAPine 25 MG TABLET PO SCH (20:26)
[2017-12-29] MEDS: cloNIDine HCL 0.1 MG TABLET PO SCH (20:27)
[2017-12-29] MEDS: DIVALPROEX ER 250 MG TAB.ER.24H. PO SCH (20:27)
[2017-12-29] MEDS: DIVALPROEX ER 500 MG TAB.ER.24H PO SCH (20:28)
[2017-12-30] MEDS: IPRATRPIUM/ALBUTEROL 0.5/2.5MG 3 ML NEBU. NEB SCH ×4 (05:52→23:30)
[2017-12-30 06:37] VITALS: BP 120/58
[2017-12-30] MEDS: POLYETHYLENE GLYCOL 3350 17 GM PACKET. PO SCH (08:22)
[2017-12-30] MEDS: FAMOTIDINE 20 MG TABLET PO SCH ×2 (08:23→20:09)
[2017-12-30] MEDS: PIOGLITAZONE 15 MG TABLET. PO SCH (08:23)
[2017-12-30] MEDS: SIMETHICONE 80 MG TAB.CHEW PO SCH ×3 (08:23→20:08)
[2017-12-30] MEDS: HALOPERIDOL 5 MG TABLET PO SCH ×2 (08:24→20:09)
[2017-12-30] MEDS: GABAPENTIN 300 MG CAPSULE. PO SCH ×3 (08:24→20:09)
[2017-12-30] MEDS: GEMFIBROZIL 600 MG TABLET. PO SCH ×2 (08:24→20:09)
[2017-12-30] MEDS: DOCUSATE SODIUM 100 MG CAPSULE PO SCH (08:24)
[2017-12-30] MEDS: POTASSIUM CHLORIDE 10 MEQ TABLET.ER. PO SCH (08:24)
[2017-12-30] MEDS: MAGNESIUM OXIDE 400 MG TABLET PO SCH (08:25)
[2017-12-30] MEDS: MULTIVITAMIN with MINERAL TABLET. PO SCH (08:25)
[2017-12-30] MEDS: SENNOSIDES 8.6 MG TABLET PO SCH ×2 (08:25→20:09)
[2017-12-30] MEDS: LACTOBACILLUS RHAMNOSUS GG 1 CAPSULE. PO SCH ×2 (08:26→20:07)
[2017-12-30] MEDS: traZODone 50 MG TABLET. PO SCH ×3 (08:26→17:56)
[2017-12-30] MEDS: FUROSEMIDE 40 MG TABLET PO SCH (08:27)
[2017-12-30] MEDS: amLODIPine BESYLATE 10 MG TABLET PO SCH (08:27)
[2017-12-30] MEDS: LISINOPRIL 20 MG TABLET PO SCH (08:28)
[2017-12-30] MEDS: CETIRIZINE HCL 10 MG TABLET PO SCH (08:28)
[2017-12-30 08:29] LABS: ALBUMIN 2.9 g/dL (3.4-5.0); ALBUMIN/GLOBULIN RATIO 0.7 (1.0-1.7); ALK PHOS 155 U/L (46-116); ALT (SGPT) 18 U/L (14-59); ANION GAP 4 (6-14); AST (SGOT) 12 U/L (15-37); BLOOD UREA NITROGEN 33 mg/dL (7-20); BUN/CREATININE RATIO 17 (6-20); CALCIUM 8.9 mg/dL (8.5-10.1); CARBON DIOXIDE 36 mmol/L (21-32); CHLORIDE 105 mmol/L (98-107); GFR 31.9; GLUCOSE 157 mg/dL (70-99); POTASSIUM 4.8 mmol/L (3.5-5.1); SODIUM 145 mmol/L (136-145); TOTAL BILIRUBIN 0.2 mg/dL (0.2-1.0); TOTAL PROTEIN 6.8 g/dL (6.4-8.2)
[2017-12-30 08:30] LABS: VAL ACID 65 mcg/mL (50-100)
[2017-12-30] MEDS: INSULIN LISPRO 300 UNITS/3 ML INSULN.PEN. SQ SCH ×3 (08:30→17:58)
[2017-12-30] MEDS: INSULIN GLARGINE 300 UNITS/3 ML INSULN.PEN. SQ SCH ×2 (08:32→20:10)
[2017-12-30 10:06] LABS: BASO % 1 % (0-3); EOS # 0.5 x10^3/uL (0.0-0.7); EOS % 10 % (0-3); HEMATOCRIT 32.5 % (36.0-47.0); HEMOGLOBIN 10.3 g/dL (12.0-15.5); LYMPH # 1.8 x10^3/uL (1.0-4.8); LYMPH % 36 % (24-48); MEAN CORPUSCULAR HEMOGLOBIN 27 pg (25-35); MEAN CORPUSCULAR HGB CONC 32 g/dL (31-37); MEAN CORPUSCULAR VOLUME 86 fL (79-100); MONO # 0.4 x10^3/uL (0.0-1.1); MONO % 8 % (0-9); NEUT # 2.3 x10^3uL (1.8-7.7); NEUT % 46 % (31-73); PLATELET COUNT 220 x10^3/uL (140-400); RED CELL DISTRIBUTION WIDTH 16.7 % (11.5-14.5)
--- NOTE | 2017-12-30 13:15 | RAD ---
EXAM: Chest, single view. HISTORY: Cough. COMPARISON: 12/20/2017 FINDINGS: A frontal view of the chest is obtained. There is no infiltrate, effusion or pneumothorax. There is a prominent cardiac mediastinal silhouette. IMPRESSION: 1. No acute pulmonary finding. 2. Prominent cardiomediastinal silhouette. Electronically signed by: Tracey Castellano MD (12/30/2017 1:12 PM) [id number]
[2017-12-30 16:44] VITALS: BP 162/74
[2017-12-30 17:10] LABS: C ANCA <1:20 titer (Neg:<1:20); P ANCA <1:20 titer (Neg:<1:20)
--- NOTE | 2017-12-30 20:00 | PDOC ---
Exam Note: Tay Note: Late entry for date of service December 29, 2017. Please also refer to the separate dictated note~for this date of service dictated separately.~Patient seen individually. Discussed the patient with Nursing staff reviewed the chart.~ Reviewed interim history and current functioning. Reviewed vital signs,~Labs/ Radiology~and current medications noted below. Continue current treatment with the changes noted in the dictated addendum note Assessment: Vital Signs: VS - Last 72 Hours, by Label Date Time Temp Pulse Resp B/P (MAP) Pulse Ox O2 Delivery O2 Flow Rate FiO2 12/30/17 16:44 98.0 91 20 162/74 (103) 95 12/30/17 10:49 97 Room Air 12/30/17 08:28 93 120/58 12/30/17 08:27 93 120/58 12/30/17 06:37 97.0 93 22 120/58 (78) 95 12/29/17 22:14 97 Room Air 12/29/17 20:27 92 168/66 12/29/17 16:44 96.7 92 18 168/66 (100) 95 Room Air 12/29/17 16:11 96 Room Air 12/29/17 09:38 92 135/60 12/29/17 09:38 92 135/60 12/29/17 06:35 97.7 85 20 104/61 (75) 93 12/29/17 06:20 96 Room Air 12/28/17 21:04 100 147/66 12/28/17 16:19 98.2 100 20 147/66 (93) 95 12/28/17 09:13 98 116/62 (80) 12/28/17 08:28 98 116/62 12/28/17 08:27 98 116/62 12/28/17 06:12 97.0 83 20 108/58 (75) 94 12/27/17 20:25 90 136/63 Vital Signs Date Time Temp Pulse Resp B/P (MAP) Pulse Ox O2 Delivery O2 Flow Rate FiO2 12/30/17 16:44 98.0 91 20 162/74 (103) 95 12/30/17 10:49 Room Air I&O Intake and Output 12/30/17 07:00 Intake Total 1080 ml Balance 1080 ml Intake Oral 1080 ml # Bowel Movements 1 Labs: Laboratory Tests Test 12/30/17 07:41 12/30/17 07:56 12/30/17 11:06 12/30/17 16:12 Glucose (Fingerstick) 165 mg/dL (70-99) H 247 mg/dL (70-99) H 168 mg/dL (70-99) H White Blood Count 5.0 x10^3/uL (4.0-11.0) Red Blood Count 3.80 x10^6/uL (3.50-5.40) Hemoglobin 10.3 g/dL (12.0-15.5) L Hematocrit 32.5 % (36.0-47.0) L Mean Corpuscular Volume 86 fL (79-100) Mean Corpuscular Hemoglobin 27 pg (25-35) Mean Corpuscular Hemoglobin Concent 32 g/dL (31-37) Red Cell Distribution Width 16.7 % (11.5-14.5) H Platelet Count 220 x10^3/uL (140-400) Neutrophils (%) (Auto) 46 % (31-73) Lymphocytes (%) (Auto) 36 % (24-48) Monocytes (%) (Auto) 8 % (0-9) Eosinophils (%) (Auto) 10 % (0-3) H Basophils (%) (Auto) 1 % (0-3) Neutrophils # (Auto) 2.3 x10^3uL (1.8-7.7) Lymphocytes # (Auto) 1.8 x10^3/uL (1.0-4.8) Monocytes # (Auto) 0.4 x10^3/uL (0.0-1.1) Eosinophils # (Auto) 0.5 x10^3/uL (0.0-0.7) Basophils # (Auto) 0.0 x10^3/uL (0.0-0.2) Sodium Level 145 mmol/L (136-145) Potassium Level 4.8 mmol/L (3.5-5.1) Chloride Level 105 mmol/L (98-107) Carbon Dioxide Level 36 mmol/L (21-32) H Anion Gap 4 (6-14) L Blood Urea Nitrogen 33 mg/dL (7-20) H Creatinine 2.0 mg/dL (0.6-1.0) H Estimated GFR (Cockcroft-Gault) 31.9 BUN/Creatinine Ratio 17 (6-20) Glucose Level 157 mg/dL (70-99) H Calcium Level 8.9 mg/dL (8.5-10.1) Total Bilirubin 0.2 mg/dL (0.2-1.0) Aspartate Amino Transferase (AST) 12 U/L (15-37) L Alanine Aminotransferase (ALT) 18 U/L (14-59) Alkaline Phosphatase 155 U/L (46-116) H Total Protein 6.8 g/dL (6.4-8.2) Albumin 2.9 g/dL (3.4-5.0) L Albumin/Globulin Ratio 0.7 (1.0-1.7) L Valproic Acid Level 65 mcg/mL (50-100) Valproic Acid Last Dose Date 12/29/17 Valproic Acid Last Dose Time 2100 Test 12/30/17 19:24 Glucose (Fingerstick) 225 mg/dL (70-99) H Current Medications: Meds: Current Medications Acetaminophen (Tylenol) 650 mg PRN Q6HRS PRN PO PAIN / TEMP; Start 12/20/17 at 23:30; Status Cancel Multi-Ingredient Ointment (Analgesic [place]) 1 caridad PRN QID PRN TP MUSCLE PAIN; Start 12/20/17 at 23:30 Al Hydroxide/Mg Hydroxide (Mylanta Plus Xs) 15 ml PRN AFTMEALHC PRN PO DYSPEPSIA; Start 12/20/17 at 23:30 Magnesium Hydroxide (Milk Of Magnesia) 2,400 mg PRN QHS PRN PO CONSTIPATION; Start 12/20/17 at 23:30 Olanzapine (ZyPREXA ZYDIS) 5 mg PRN Q2HR PRN PO PSYCHOSIS; Start 12/21/17 at 01 :00 Aripiprazole (Abilify) 10 mg BID PO Last administered on 12/26/17at 08:44; Start 12/21/17 at 09:00; Stop 12/26/17 at 19:47; Status DC Clozapine (Clozaril) 75 mg QHS PO Last administered on 12/21/17at 20:40; Start 12/21/17 at 21:00; Stop 12/22/17 at 19:20; Status DC Divalproex Sodium (Depakote Er) 1,500 mg QHS PO Last administered on 12/24/17 20:23; Start 12/21/17 at 21:00; Stop 12/25/17 at 19:22; Status DC Fluvoxamine Maleate (Luvox) 50 mg QHS PO Last administered on 12/29/17 20:29; Start 12/21/17 at 21:00 Haloperidol (Haldol) 15 mg BID PO Last administered on 12/30/17 08:24; Start 12/21/17 at 09:00 Haloperidol Lactate (Haldol) 5 mg PRN Q4HRS PRN IM AGITATION; Start 12/21/17 at 01:00; Stop 12/21/17 at 01:43; Status DC Clonidine HCl (Catapres) 0.1 mg HS PO Last administered on 12/29/17 20:27; Start 12/21/17 at 21:00 Gabapentin (Neurontin) 300 mg TID PO Last administered on 12/30/17 13:55; Start 12/21/17 at 10:00 Insulin Human Lispro (HumaLOG) 4 units DAILYWBKFT SQ Last administered on 08:30; Start 12/22/17 at 08:00 Insulin Human Lispro (HumaLOG) 8 units DAILYBFRLUN SQ Last administered on 12/30 12:19; Start 12/21/17 at 11:30 Insulin Human Lispro (HumaLOG) 10 units DAILYBFRSUP SQ Last administered on 17:58; Start 12/21/17 at 17:00 Albuterol/ Ipratropium (Duoneb) 3 ml RTQID NEB Last administered on 12/30/17 10:48; Start 12/21/17 at 12:00 Lactobacillus Rhamnosus (Culturelle) 1 cap BID PO Last administered on 08:26; Start 12/21/17 at 10:00 Lisinopril (Prinivil) 20 mg DAILY PO Last administered on 12/30/17 08:28; Start 12/21/17 at 10:00 Acetaminophen (Tylenol) 500 mg PRN Q6HRS PRN PO PAIN; Start 12/21/17 at 09:30 Amlodipine Besylate (Norvasc) 10 mg DAILY PO Last administered on 12/30/17 08: 27; Start 12/21/17 at 10:00 Cetirizine HCl (ZyrTEC) 10 mg DAILY PO Last administered on 12/30/17 08:28; Start 12/21/17 at 10:00 Docusate Sodium (Colace) 100 mg DAILY PO Last administered on 12/30/17 08:24; Start 12/21/17 at 10:00 Docusate Sodium (Colace) 100 mg PRN DAILY PRN PO CONSTIPATION; Start 12/21/17 at 10:00 Famotidine (Pepcid) 20 mg BID PO Last administered on 12/30/17 08:23; Start at 10:00 Fluticasone Propionate (Flonase) 2 spray PRN DAILY PRN NS ALLERGIES; Start at 09:30 Furosemide (Lasix) 40 mg DAILY PO Last administered on 12/30/17 08:27; Start 12/21/17 at 10:00 Gemfibrozil (Lopid) 600 mg BID PO Last administered on 12/30/17 08:24; Start 12/21/17 at 10:00 Insulin Glargine (Lantus) 16 units HS SQ Last administered on 12/29/17 20:31; Start 12/21/17 at 21:00 Insulin Glargine (Lantus) 26 units DAILYWBKFT SQ Last administered on 08:32; Start 12/22/17 at 08:00 Magnesium Oxide (Magnesium Oxide) 400 mg DAILY PO Last administered on 08:25; Start 12/21/17 at 10:00 Multivitamins/ Calcium (Thera-M Plus) 1 tab DAILY PO Last administered on 08:25; Start 12/21/17 at 10:00 Pioglitazone HCl (Actos) 30 mg DAILY PO Last administered on 12/30/17 08:23; Start 12/21/17 at 10:00 Polyethylene Glycol (miraLAX) 1 gm DAILY PO Last administered on 12/21/17at 10: 12; Start 12/21/17 at 10:00; Stop 12/22/17 at 09:12; Status DC Potassium Chloride (Klor-Con) 10 meq DAILYWBKFT PO Last administered on 08:24; Start 12/22/17 at 10:00 Sennosides (Senna) 8.6 mg BID PO Last administered on 12/30/17 08:25; Start at 10:00 Simethicone (Gas-X) 120 mg TID PO Last administered on 12/30/17 13:55; Start 12/21/17 at 10:00 Trazodone HCl (Desyrel) 12.5 mg TID@0900,1300,1700 PO Last administered on 12/30 17:56; Start 12/21/17 at 10:00 Artificial Tears (Artificial Tears) 1 drop PRN Q15MIN PRN OU DRY EYE Last administered on 12/22/17 15:57; Start 12/21/17 at 16:00 Polyethylene Glycol (miraLAX) 17 gm DAILY PO Last administered on 12/30/17 08: 22; Start 12/23/17 at 09:00 Clozapine (Clozaril) 100 mg QHS PO Last administered on 12/27/17 20:22; Start 12/22/17 at 21:00; Stop 12/28/17 at 16:39; Status DC Divalproex Sodium (Depakote Er) 1,750 mg QHS PO ; Start 12/25/17 at 21:00; Stop 12/25/17 at 21:00; Status DC Divalproex Sodium (Depakote Er) 1,500 mg QHS PO Last administered on 12/29/17 20:28; Start 12/25/17 at 21:00 Divalproex Sodium (Depakote Er) 250 mg QHS PO Last administered on 12/29/17 20 :27; Start 12/25/17 at 21:00 Clozapine (Clozaril) 125 mg QHS PO ; Start 12/28/17 at 21:00; Status UNV Clozapine (Clozaril) 25 mg QHS PO Last administered on 12/29/17 20:26; Start 12/28/17 at 21:00 Clozapine (Clozaril) 100 mg QHS PO Last administered on 12/29/17 20:26; Start 12/28/17 at 21:00 Active Scripts Active Reported Duoneb 0.5-3(2.5) Mg/3 Ml (Albuterol/Ipratropium) 3 Ml Ampul.neb 3 Ml NEB RTQID Trazodone Hcl 50 Mg Tablet 12.5 Mg PO TID@0900,1300,1700 Fluvoxamine Maleate 50 Mg Tablet 50 Mg PO QHS Clozaril (Clozapine) 25 Mg Tablet 75 Mg PO QHS Miralax (Polyethylene Glycol 3350) 17 Gm Powd.pack 1 Packet PO DAILY Zyprexa Zydis (Olanzapine) 5 Mg Tab.rapdis 5 Mg PO PRN Q2HR PRN Depakote Er (Divalproex Sodium) 500 Mg Tab.er.24h 1,500 Tab PO QHS Culturelle (Lactobacillus Rhamnosus Gg) 1 Each Cap.sprink 1 Each PO BID Multi Vitamin Daily (Multivitamin) 1 Each Tablet 1 Tab PO DAILY Simethicone 125 Mg Capsule 120 Mg PO TID Senna Lax (Sennosides) 8.6 Mg Tablet 8.6 Mg PO BID Potassium Chloride 10 Meq Tablet.er 10 Meq PO DAILYWBKFT Actos (Pioglitazone Hcl) 30 Mg Tablet 30 Mg PO DAILY Pepcid (Famotidine) 20 Mg Tablet 20 Mg PO BID Novolog Flexpen (Insulin Aspart) 100 Unit/1 Ml Insuln.pen 8 Units SQ DAILYBFRLUN Novolog Flexpen (Insulin Aspart) 100 Unit/1 Ml Insuln.pen 4 Units SQ DAILYWBKFT Novolog Flexpen (Insulin Aspart) 100 Unit/1 Ml Insuln.pen 10 Unit SQ DAILYBFRSUP Mapap (Acetaminophen) 500 Mg Tablet 500 Mg PO PRN Q6HRS PRN Magnesium Oxide 400 Mg Tablet 400 Mg PO DAILY Lisinopril 20 Mg Tablet 20 Mg PO DAILY Levemir Flextouch (Insulin Detemir) 100 Unit/1 Ml Insuln.pen 26 Units SQ DAILYWBKFT Levemir Flextouch (Insulin Detemir) 100 Unit/1 Ml Insuln.pen 16 Units SQ HS Lasix (Furosemide) 40 Mg Tablet 40 Mg PO DAILY Haloperidol 10 Mg Tablet 15 Mg PO BID Haloperidol Lactate 5 Mg/1 Ml Vial 5 Mg IM PRN Q4HRS PRN Gemfibrozil 600 Mg Tablet 600 Mg PO BID Gabapentin 300 Mg Capsule 300 Mg PO TID Flonase Allergy Relief (Fluticasone Propionate) 9.9 Ml [place].susp 2 Sprays NS PRN PRN Docusate Sodium 100 Mg Capsule 100 Mg PO DAILY Docusate Sodium 100 Mg Capsule 100 Mg PO PRN DAILY PRN Clonidine Hcl 0.1 Mg Tablet 0.1 Mg PO HS Cetirizine Hcl 10 Mg Tablet 10 Mg PO DAILY Aspirin Ec (Aspirin) 81 Mg Tablet.dr 81 Mg PO DAILYWBKFT Amlodipine Besylate 10 Mg Tablet 10 Mg PO DAILY Abilify (Aripiprazole) 15 Mg Tablet 10 Mg PO BID I have reviewed the current psychotropics carefully including drug interactions. Risk benefit ratio favors no change other than as noted in my dictated progress note. Diagnosis: Problems: (1) Anxiety disorder (2) Bipolar affective, mixed, sev w/ psych (3) Schizoaffective disorder, chronic condition with acute exacerbation (4) Schizophrenia, disorganized, subchronic with acute exacerbation JASS HUNG MD December 30, 2017 20:00
[2017-12-30] MEDS: cloZAPine 100 MG TABLET PO SCH (20:07)
[2017-12-30] MEDS: cloNIDine HCL 0.1 MG TABLET PO SCH (20:07)
[2017-12-30] MEDS: cloZAPine 25 MG TABLET PO SCH (20:07)
[2017-12-30] MEDS: DIVALPROEX ER 250 MG TAB.ER.24H. PO SCH (20:08)
[2017-12-30] MEDS: DIVALPROEX ER 500 MG TAB.ER.24H PO SCH (20:08)
--- NOTE | 2017-12-30 20:34 | PDOC ---
Exam Note: Tay Note: Please also refer to the separate dictated note~for this date of service dictated separately.~Patient seen individually. Discussed the patient with Nursing staff reviewed the chart.~Reviewed interim history and current functioning. Reviewed vital signs,~Labs/ Radiology~and current medications noted below. Continue current treatment with the changes noted in the dictated addendum note Assessment: Vital Signs: Vital Signs Date Time Temp Pulse Resp B/P (MAP) Pulse Ox O2 Delivery O2 Flow Rate FiO2 12/30/17 20:07 91 162/74 12/30/17 16:44 98.0 20 95 12/30/17 10:49 Room Air I&O Intake and Output 12/30/17 07:00 Intake Total 1080 ml Balance 1080 ml Intake Oral 1080 ml # Bowel Movements 1 Labs: Laboratory Tests Test 12/30/17 07:41 12/30/17 07:56 12/30/17 11:06 12/30/17 16:12 Glucose (Fingerstick) 165 mg/dL (70-99) H 247 mg/dL (70-99) H 168 mg/dL (70-99) H White Blood Count 5.0 x10^3/uL (4.0-11.0) Red Blood Count 3.80 x10^6/uL (3.50-5.40) Hemoglobin 10.3 g/dL (12.0-15.5) L Hematocrit 32.5 % (36.0-47.0) L Mean Corpuscular Volume 86 fL (79-100) Mean Corpuscular Hemoglobin 27 pg (25-35) Mean Corpuscular Hemoglobin Concent 32 g/dL (31-37) Red Cell Distribution Width 16.7 % (11.5-14.5) H Platelet Count 220 x10^3/uL (140-400) Neutrophils (%) (Auto) 46 % (31-73) Lymphocytes (%) (Auto) 36 % (24-48) Monocytes (%) (Auto) 8 % (0-9) Eosinophils (%) (Auto) 10 % (0-3) H Basophils (%) (Auto) 1 % (0-3) Neutrophils # (Auto) 2.3 x10^3uL (1.8-7.7) Lymphocytes # (Auto) 1.8 x10^3/uL (1.0-4.8) Monocytes # (Auto) 0.4 x10^3/uL (0.0-1.1) Eosinophils # (Auto) 0.5 x10^3/uL (0.0-0.7) Basophils # (Auto) 0.0 x10^3/uL (0.0-0.2) Sodium Level 145 mmol/L (136-145) Potassium Level 4.8 mmol/L (3.5-5.1) Chloride Level 105 mmol/L (98-107) Carbon Dioxide Level 36 mmol/L (21-32) H Anion Gap 4 (6-14) L Blood Urea Nitrogen 33 mg/dL (7-20) H Creatinine 2.0 mg/dL (0.6-1.0) H Estimated GFR (Cockcroft-Gault) 31.9 BUN/Creatinine Ratio 17 (6-20) Glucose Level 157 mg/dL (70-99) H Calcium Level 8.9 mg/dL (8.5-10.1) Total Bilirubin 0.2 mg/dL (0.2-1.0) Aspartate Amino Transferase (AST) 12 U/L (15-37) L Alanine Aminotransferase (ALT) 18 U/L (14-59) Alkaline Phosphatase 155 U/L (46-116) H Total Protein 6.8 g/dL (6.4-8.2) Albumin 2.9 g/dL (3.4-5.0) L Albumin/Globulin Ratio 0.7 (1.0-1.7) L Valproic Acid Level 65 mcg/mL (50-100) Valproic Acid Last Dose Date 12/29/17 Valproic Acid Last Dose Time 2100 Test 12/30/17 19:24 Glucose (Fingerstick) 225 mg/dL (70-99) H Current Medications: Meds: Current Medications Acetaminophen (Tylenol) 650 mg PRN Q6HRS PRN PO PAIN / TEMP; Start 12/20/17 at 23:30; Status Cancel Multi-Ingredient Ointment (Analgesic [place]) 1 caridad PRN QID PRN TP MUSCLE PAIN; Start 12/20/17 at 23:30 Al Hydroxide/Mg Hydroxide (Mylanta Plus Xs) 15 ml PRN AFTMEALHC PRN PO DYSPEPSIA; Start 12/20/17 at 23:30 Magnesium Hydroxide (Milk Of Magnesia) 2,400 mg PRN QHS PRN PO CONSTIPATION; Start 12/20/17 at 23:30 Olanzapine (ZyPREXA ZYDIS) 5 mg PRN Q2HR PRN PO PSYCHOSIS; Start 12/21/17 at 01 :00 Aripiprazole (Abilify) 10 mg BID PO Last administered on 12/26/17 08:44; Start 12/21/17 at 09:00; Stop 12/26/17 at 19:47; Status DC Clozapine (Clozaril) 75 mg QHS PO Last administered on 12/21/17at 20:40; Start 12/21/17 at 21:00; Stop 12/22/17 at 19:20; Status DC Divalproex Sodium (Depakote Er) 1,500 mg QHS PO Last administered on 12/24/17 20:23; Start 12/21/17 at 21:00; Stop 12/25/17 at 19:22; Status DC Fluvoxamine Maleate (Luvox) 50 mg QHS PO Last administered on 12/30/17 20:09; Start 12/21/17 at 21:00 Haloperidol (Haldol) 15 mg BID PO Last administered on 12/30/17 20:09; Start 12/21/17 at 09:00 Haloperidol Lactate (Haldol) 5 mg PRN Q4HRS PRN IM AGITATION; Start 12/21/17 at 01:00; Stop 12/21/17 at 01:43; Status DC Clonidine HCl (Catapres) 0.1 mg HS PO Last administered on 12/30/17 20:07; Start 12/21/17 at 21:00 Gabapentin (Neurontin) 300 mg TID PO Last administered on 12/30/17 20:09; Start 12/21/17 at 10:00 Insulin Human Lispro (HumaLOG) 4 units DAILYWBKFT SQ Last administered on 08:30; Start 12/22/17 at 08:00 Insulin Human Lispro (HumaLOG) 8 units DAILYBFRLUN SQ Last administered on 12/30 12:19; Start 12/21/17 at 11:30 Insulin Human Lispro (HumaLOG) 10 units DAILYBFRSUP SQ Last administered on 17:58; Start 12/21/17 at 17:00 Albuterol/ Ipratropium (Duoneb) 3 ml RTQID NEB Last administered on 12/30/17 10:48; Start 12/21/17 at 12:00 Lactobacillus Rhamnosus (Culturelle) 1 cap BID PO Last administered on 20:07; Start 12/21/17 at 10:00 Lisinopril (Prinivil) 20 mg DAILY PO Last administered on 12/30/17 08:28; Start 12/21/17 at 10:00 Acetaminophen (Tylenol) 500 mg PRN Q6HRS PRN PO PAIN; Start 12/21/17 at 09:30 Amlodipine Besylate (Norvasc) 10 mg DAILY PO Last administered on 12/30/17 08: 27; Start 12/21/17 at 10:00 Cetirizine HCl (ZyrTEC) 10 mg DAILY PO Last administered on 12/30/17 08:28; Start 12/21/17 at 10:00 Docusate Sodium (Colace) 100 mg DAILY PO Last administered on 12/30/17 08:24; Start 12/21/17 at 10:00 Docusate Sodium (Colace) 100 mg PRN DAILY PRN PO CONSTIPATION; Start 12/21/17 at 10:00 Famotidine (Pepcid) 20 mg BID PO Last administered on 12/30/17 20:09; Start at 10:00 Fluticasone Propionate (Flonase) 2 spray PRN DAILY PRN NS ALLERGIES; Start at 09:30 Furosemide (Lasix) 40 mg DAILY PO Last administered on 12/30/17 08:27; Start 12/21/17 at 10:00 Gemfibrozil (Lopid) 600 mg BID PO Last administered on 12/30/17 20:09; Start 12/21/17 at 10:00 Insulin Glargine (Lantus) 16 units HS SQ Last administered on 12/30/17 20:10; Start 12/21/17 at 21:00 Insulin Glargine (Lantus) 26 units DAILYWBKFT SQ Last administered on 08:32; Start 12/22/17 at 08:00 Magnesium Oxide (Magnesium Oxide) 400 mg DAILY PO Last administered on 08:25; Start 12/21/17 at 10:00 Multivitamins/ Calcium (Thera-M Plus) 1 tab DAILY PO Last administered on 08:25; Start 12/21/17 at 10:00 Pioglitazone HCl (Actos) 30 mg DAILY PO Last administered on 12/30/17 08:23; Start 12/21/17 at 10:00 Polyethylene Glycol (miraLAX) 1 gm DAILY PO Last administered on 12/21/17at 10: 12; Start 12/21/17 at 10:00; Stop 12/22/17 at 09:12; Status DC Potassium Chloride (Klor-Con) 10 meq DAILYWBKFT PO Last administered on 08:24; Start 12/22/17 at 10:00 Sennosides (Senna) 8.6 mg BID PO Last administered on 12/30/17 20:09; Start at 10:00 Simethicone (Gas-X) 120 mg TID PO Last administered on 12/30/17 20:08; Start 12/21/17 at 10:00 Trazodone HCl (Desyrel) 12.5 mg TID@0900,1300,1700 PO Last administered on 12/30 17:56; Start 12/21/17 at 10:00 Artificial Tears (Artificial Tears) 1 drop PRN Q15MIN PRN OU DRY EYE Last administered on 12/22/17 15:57; Start 12/21/17 at 16:00 Polyethylene Glycol (miraLAX) 17 gm DAILY PO Last administered on 12/30/17 08: 22; Start 12/23/17 at 09:00 Clozapine (Clozaril) 100 mg QHS PO Last administered on 12/27/17 20:22; Start 12/22/17 at 21:00; Stop 12/28/17 at 16:39; Status DC Divalproex Sodium (Depakote Er) 1,750 mg QHS PO ; Start 12/25/17 at 21:00; Stop 12/25/17 at 21:00; Status DC Divalproex Sodium (Depakote Er) 1,500 mg QHS PO Last administered on 5/23/18at 20:08; Start 12/25/17 at 21:00 Divalproex Sodium (Depakote Er) 250 mg QHS PO Last administered on 12/30/17at 20 :08; Start 12/25/17 at 21:00 Clozapine (Clozaril) 125 mg QHS PO ; Start 12/28/17 at 21:00; Status UNV Clozapine (Clozaril) 25 mg QHS PO Last administered on 12/30/17at 20:07; Start 12/28/17 at 21:00 Clozapine (Clozaril) 100 mg QHS PO Last administered on 12/30/17at 20:07; Start 12/28/17 at 21:00 Active Scripts Active Reported Duoneb 0.5-3(2.5) Mg/3 Ml (Albuterol/Ipratropium) 3 Ml Ampul.neb 3 Ml NEB RTQID Trazodone Hcl 50 Mg Tablet 12.5 Mg PO TID@0900,1300,1700 Fluvoxamine Maleate 50 Mg Tablet 50 Mg PO QHS Clozaril (Clozapine) 25 Mg Tablet 75 Mg PO QHS Miralax (Polyethylene Glycol 3350) 17 Gm Powd.pack 1 Packet PO DAILY Zyprexa Zydis (Olanzapine) 5 Mg Tab.rapdis 5 Mg PO PRN Q2HR PRN Depakote Er (Divalproex Sodium) 500 Mg Tab.er.24h 1,500 Tab PO QHS Culturelle (Lactobacillus Rhamnosus Gg) 1 Each Cap.sprink 1 Each PO BID Multi Vitamin Daily (Multivitamin) 1 Each Tablet 1 Tab PO DAILY Simethicone 125 Mg Capsule 120 Mg PO TID Senna Lax (Sennosides) 8.6 Mg Tablet 8.6 Mg PO BID Potassium Chloride 10 Meq Tablet.er 10 Meq PO DAILYWBKFT Actos (Pioglitazone Hcl) 30 Mg Tablet 30 Mg PO DAILY Pepcid (Famotidine) 20 Mg Tablet 20 Mg PO BID Novolog Flexpen (Insulin Aspart) 100 Unit/1 Ml Insuln.pen 8 Units SQ DAILYBFRLUN Novolog Flexpen (Insulin Aspart) 100 Unit/1 Ml Insuln.pen 4 Units SQ DAILYWBKFT Novolog Flexpen (Insulin Aspart) 100 Unit/1 Ml Insuln.pen 10 Unit SQ DAILYBFRSUP Mapap (Acetaminophen) 500 Mg Tablet 500 Mg PO PRN Q6HRS PRN Magnesium Oxide 400 Mg Tablet 400 Mg PO DAILY Lisinopril 20 Mg Tablet 20 Mg PO DAILY Levemir Flextouch (Insulin Detemir) 100 Unit/1 Ml Insuln.pen 26 Units SQ DAILYWBKFT Levemir Flextouch (Insulin Detemir) 100 Unit/1 Ml Insuln.pen 16 Units SQ HS Lasix (Furosemide) 40 Mg Tablet 40 Mg PO DAILY Haloperidol 10 Mg Tablet 15 Mg PO BID Haloperidol Lactate 5 Mg/1 Ml Vial 5 Mg IM PRN Q4HRS PRN Gemfibrozil 600 Mg Tablet 600 Mg PO BID Gabapentin 300 Mg Capsule 300 Mg PO TID Flonase Allergy Relief (Fluticasone Propionate) 9.9 Ml [place].susp 2 Sprays NS PRN PRN Docusate Sodium 100 Mg Capsule 100 Mg PO DAILY Docusate Sodium 100 Mg Capsule 100 Mg PO PRN DAILY PRN Clonidine Hcl 0.1 Mg Tablet 0.1 Mg PO HS Cetirizine Hcl 10 Mg Tablet 10 Mg PO DAILY Aspirin Ec (Aspirin) 81 Mg Tablet.dr 81 Mg PO DAILYWBKFT Amlodipine Besylate 10 Mg Tablet 10 Mg PO DAILY Abilify (Aripiprazole) 15 Mg Tablet 10 Mg PO BID I have reviewed the current psychotropics carefully including drug interactions. Risk benefit ratio favors no change other than as noted in my dictated progress note. Diagnosis: Problems: (1) Anxiety disorder (2) Bipolar affective, mixed, sev w/ psych (3) Schizoaffective disorder, chronic condition with acute exacerbation (4) Schizophrenia, disorganized, subchronic with acute exacerbation JASS HUNG MD December 30, 2017 20:33
--- NOTE | 2017-12-31 00:32 | PN ---
DATE: 12/29/2017 PSYCHIATRIC PROGRESS NOTE This late entry 12/29/2017 covers elements not covered in my initial note of 12/29/2017. SUBJECTIVE: Met with the patient in evening of 12/29/2017. The patient slept 6 hours previous evening, remains somewhat anxious, frequently up to the nursing station, ruminating about different things including telephone calls and discharge plans. CBC, ANC were unremarkable and Clozaril has been increased to 125 mg a day. REVIEW OF SYSTEMS: No CV, , pulmonary, eye, ENT system symptoms on review. Reliability is poor. MENTAL STATUS EXAM: Oriented to herself, situation. Speech is coherent, but at times pressured. Abstraction fair, computation is impaired, language function intact. Mood and affect remain somewhat anxious, obsessive, labile, but much improved, much less psychotic. LABORATORY DATA: Reviewed. IMPRESSION: Schizoaffective disorder, bipolar type, mixed with psychotic features. PLAN: Check CMP, valproic acid level in morning of 12/30/2017. Last Depakote ER increased was on 12/25/2017 to current doses 1750 mg at bedtime. We will check the level, adjust thereafter. Maintain Luvox, Clozaril, trazodone along with Haldol for now. Once Clozaril is slightly more therapeutic, we will taper and stop the Haldol if possible. MAN Prosper HUNG MD DR: KATIANA/alicia JOB#: [id number] / [id number]
[2017-12-31 05:56] VITALS: BP 105/48
[2017-12-31] MEDS: IPRATRPIUM/ALBUTEROL 0.5/2.5MG 3 ML NEBU. NEB SCH ×4 (05:57→20:00)
[2017-12-31] MEDS: INSULIN LISPRO 300 UNITS/3 ML INSULN.PEN. SQ SCH ×3 (08:00→17:33)
[2017-12-31] MEDS: INSULIN GLARGINE 300 UNITS/3 ML INSULN.PEN. SQ SCH ×2 (08:00→20:20)
[2017-12-31] MEDS: POLYETHYLENE GLYCOL 3350 17 GM PACKET. PO SCH (08:58)
[2017-12-31] MEDS: GABAPENTIN 300 MG CAPSULE. PO SCH ×3 (08:59→20:18)
[2017-12-31] MEDS: SENNOSIDES 8.6 MG TABLET PO SCH ×2 (08:59→20:18)
[2017-12-31] MEDS: MULTIVITAMIN with MINERAL TABLET. PO SCH (08:59)
[2017-12-31] MEDS: LISINOPRIL 20 MG TABLET PO SCH (08:59)
[2017-12-31] MEDS: SIMETHICONE 80 MG TAB.CHEW PO SCH ×3 (09:00→20:17)
[2017-12-31] MEDS: PIOGLITAZONE 15 MG TABLET. PO SCH (09:00)
[2017-12-31] MEDS: CETIRIZINE HCL 10 MG TABLET PO SCH (09:00)
[2017-12-31] MEDS: MAGNESIUM OXIDE 400 MG TABLET PO SCH (09:00)
[2017-12-31] MEDS: FAMOTIDINE 20 MG TABLET PO SCH ×2 (09:00→20:18)
[2017-12-31] MEDS: LACTOBACILLUS RHAMNOSUS GG 1 CAPSULE. PO SCH ×2 (09:01→20:15)
[2017-12-31] MEDS: HALOPERIDOL 5 MG TABLET PO SCH ×2 (09:01→20:17)
[2017-12-31] MEDS: GEMFIBROZIL 600 MG TABLET. PO SCH ×2 (09:01→20:17)
[2017-12-31] MEDS: POTASSIUM CHLORIDE 10 MEQ TABLET.ER. PO SCH (09:01)
[2017-12-31] MEDS: traZODone 50 MG TABLET. PO SCH ×3 (09:02→17:33)
[2017-12-31] MEDS: DOCUSATE SODIUM 100 MG CAPSULE PO SCH (09:02)
[2017-12-31] MEDS: FUROSEMIDE 40 MG TABLET PO SCH (09:10)
[2017-12-31] MEDS: amLODIPine BESYLATE 10 MG TABLET PO SCH (09:15)
[2017-12-31 16:08] VITALS: BP 119/58
[2017-12-31] MEDS: cloNIDine HCL 0.1 MG TABLET PO SCH (20:12)
[2017-12-31] MEDS: cloZAPine 100 MG TABLET PO SCH (20:13)
[2017-12-31] MEDS: cloZAPine 25 MG TABLET PO SCH (20:15)
[2017-12-31] MEDS: DIVALPROEX ER 500 MG TAB.ER.24H PO SCH (20:16)
[2017-12-31] MEDS: DIVALPROEX ER 250 MG TAB.ER.24H. PO SCH (20:16)
--- NOTE | 2017-12-31 20:50 | PDOC ---
Exam Note: Tay Note: Please also refer to the separate dictated note~for this date of service dictated separately.~Patient seen individually. Discussed the patient with Nursing staff reviewed the chart.~Reviewed interim history and current functioning. Reviewed vital signs,~Labs/ Radiology~and current medications noted below. Continue current treatment with the changes noted in the dictated addendum note Assessment: Vital Signs: Vital Signs Date Time Temp Pulse Resp B/P (MAP) Pulse Ox O2 Delivery O2 Flow Rate FiO2 12/31/17 20:12 94 119/58 12/31/17 16:08 97.6 16 98 12/31/17 04:40 Room Air I&O Intake and Output 12/31/17 07:00 Intake Total 1030 ml Balance 1030 ml Intake Oral 1030 ml # Bowel Movements 1 Labs: Laboratory Tests Test 12/31/17 07:34 12/31/17 11:50 12/31/17 17:12 12/31/17 19:29 Glucose (Fingerstick) 70 mg/dL (70-99) 226 mg/dL (70-99) H 258 mg/dL (70-99) H 235 mg/dL (70-99) H Current Medications: Meds: Current Medications Acetaminophen (Tylenol) 650 mg PRN Q6HRS PRN PO PAIN / TEMP; Start 12/20/17 at 23:30; Status Cancel Multi-Ingredient Ointment (Analgesic [place]) 1 caridad PRN QID PRN TP MUSCLE PAIN; Start 12/20/17 at 23:30 Al Hydroxide/Mg Hydroxide (Mylanta Plus Xs) 15 ml PRN AFTMEALHC PRN PO DYSPEPSIA; Start 12/20/17 at 23:30 Magnesium Hydroxide (Milk Of Magnesia) 2,400 mg PRN QHS PRN PO CONSTIPATION; Start 12/20/17 at 23:30 Olanzapine (ZyPREXA ZYDIS) 5 mg PRN Q2HR PRN PO PSYCHOSIS; Start 12/21/17 at 01 :00 Aripiprazole (Abilify) 10 mg BID PO Last administered on 12/26/17at 08:44; Start 12/21/17 at 09:00; Stop 12/26/17 at 19:47; Status DC Clozapine (Clozaril) 75 mg QHS PO Last administered on 12/21/17at 20:40; Start 12/21/17 at 21:00; Stop 12/22/17 at 19:20; Status DC Divalproex Sodium (Depakote Er) 1,500 mg QHS PO Last administered on 12/24/17 20:23; Start 12/21/17 at 21:00; Stop 12/25/17 at 19:22; Status DC Fluvoxamine Maleate (Luvox) 50 mg QHS PO Last administered on 12/31/17 20:18; Start 12/21/17 at 21:00 Haloperidol (Haldol) 15 mg BID PO Last administered on 12/31/17 20:17; Start 12/21/17 at 09:00 Haloperidol Lactate (Haldol) 5 mg PRN Q4HRS PRN IM AGITATION; Start 12/21/17 at 01:00; Stop 12/21/17 at 01:43; Status DC Clonidine HCl (Catapres) 0.1 mg HS PO Last administered on 12/31/17 20:12; Start 12/21/17 at 21:00 Gabapentin (Neurontin) 300 mg TID PO Last administered on 12/31/17 20:18; Start 12/21/17 at 10:00 Insulin Human Lispro (HumaLOG) 4 units DAILYWBKFT SQ Last administered on 08:30; Start 12/22/17 at 08:00 Insulin Human Lispro (HumaLOG) 8 units DAILYBFRLUN SQ Last administered on 12/31at 13:00; Start 12/21/17 at 11:30 Insulin Human Lispro (HumaLOG) 10 units DAILYBFRSUP SQ Last administered on 17:33; Start 12/21/17 at 17:00 Albuterol/ Ipratropium (Duoneb) 3 ml RTQID NEB Last administered on 12/31/17 05:57; Start 12/21/17 at 12:00 Lactobacillus Rhamnosus (Culturelle) 1 cap BID PO Last administered on at 20:15; Start 12/21/17 at 10:00 Lisinopril (Prinivil) 20 mg DAILY PO Last administered on 12/31/17at 08:59; Start 12/21/17 at 10:00 Acetaminophen (Tylenol) 500 mg PRN Q6HRS PRN PO PAIN; Start 12/21/17 at 09:30 Amlodipine Besylate (Norvasc) 10 mg DAILY PO Last administered on 12/31/17 09: 15; Start 12/21/17 at 10:00 Cetirizine HCl (ZyrTEC) 10 mg DAILY PO Last administered on 12/31/17 09:00; Start 12/21/17 at 10:00 Docusate Sodium (Colace) 100 mg DAILY PO Last administered on 12/31/17 09:02; Start 12/21/17 at 10:00 Docusate Sodium (Colace) 100 mg PRN DAILY PRN PO CONSTIPATION; Start 12/21/17 at 10:00 Famotidine (Pepcid) 20 mg BID PO Last administered on 12/31/17 20:18; Start at 10:00 Fluticasone Propionate (Flonase) 2 spray PRN DAILY PRN NS ALLERGIES; Start at 09:30 Furosemide (Lasix) 40 mg DAILY PO Last administered on 12/31/17 09:10; Start 12/21/17 at 10:00 Gemfibrozil (Lopid) 600 mg BID PO Last administered on 12/31/17 20:17; Start 12/21/17 at 10:00 Insulin Glargine (Lantus) 16 units HS SQ Last administered on 12/31/17 20:20; Start 12/21/17 at 21:00 Insulin Glargine (Lantus) 26 units DAILYWBKFT SQ Last administered on 08:32; Start 12/22/17 at 08:00 Magnesium Oxide (Magnesium Oxide) 400 mg DAILY PO Last administered on 09:00; Start 12/21/17 at 10:00 Multivitamins/ Calcium (Thera-M Plus) 1 tab DAILY PO Last administered on 08:59; Start 12/21/17 at 10:00 Pioglitazone HCl (Actos) 30 mg DAILY PO Last administered on 12/31/17 09:00; Start 12/21/17 at 10:00 Polyethylene Glycol (miraLAX) 1 gm DAILY PO Last administered on 12/21/17at 10: 12; Start 12/21/17 at 10:00; Stop 12/22/17 at 09:12; Status DC Potassium Chloride (Klor-Con) 10 meq DAILYWBKFT PO Last administered on at 09:01; Start 12/22/17 at 10:00 Sennosides (Senna) 8.6 mg BID PO Last administered on 12/31/17 20:18; Start at 10:00 Simethicone (Gas-X) 120 mg TID PO Last administered on 12/31/17 20:17; Start 12/21/17 at 10:00 Trazodone HCl (Desyrel) 12.5 mg TID@0900,1300,1700 PO Last administered on 12/31 17:33; Start 12/21/17 at 10:00 Artificial Tears (Artificial Tears) 1 drop PRN Q15MIN PRN OU DRY EYE Last administered on 12/22/17at 15:57; Start 12/21/17 at 16:00 Polyethylene Glycol (miraLAX) 17 gm DAILY PO Last administered on 12/31/17 08: 58; Start 12/23/17 at 09:00 Clozapine (Clozaril) 100 mg QHS PO Last administered on 12/27/17at 20:22; Start 12/22/17 at 21:00; Stop 12/28/17 at 16:39; Status DC Divalproex Sodium (Depakote Er) 1,750 mg QHS PO ; Start 12/25/17 at 21:00; Stop 12/25/17 at 21:00; Status DC Divalproex Sodium (Depakote Er) 1,500 mg QHS PO Last administered on 12/31/17 20:16; Start 12/25/17 at 21:00 Divalproex Sodium (Depakote Er) 250 mg QHS PO Last administered on 12/31/17at 20 :16; Start 12/25/17 at 21:00 Clozapine (Clozaril) 125 mg QHS PO ; Start 12/28/17 at 21:00; Status UNV Clozapine (Clozaril) 25 mg QHS PO Last administered on 12/31/17at 20:15; Start 12/28/17 at 21:00 Clozapine (Clozaril) 100 mg QHS PO Last administered on 12/31/17at 20:13; Start 12/28/17 at 21:00 Active Scripts Active Reported Duoneb 0.5-3(2.5) Mg/3 Ml (Albuterol/Ipratropium) 3 Ml Ampul.neb 3 Ml NEB RTQID Trazodone Hcl 50 Mg Tablet 12.5 Mg PO TID@0900,1300,1700 Fluvoxamine Maleate 50 Mg Tablet 50 Mg PO QHS Clozaril (Clozapine) 25 Mg Tablet 75 Mg PO QHS Miralax (Polyethylene Glycol 3350) 17 Gm Powd.pack 1 Packet PO DAILY Zyprexa Zydis (Olanzapine) 5 Mg Tab.rapdis 5 Mg PO PRN Q2HR PRN Depakote Er (Divalproex Sodium) 500 Mg Tab.er.24h 1,500 Tab PO QHS Culturelle (Lactobacillus Rhamnosus Gg) 1 Each Cap.sprink 1 Each PO BID Multi Vitamin Daily (Multivitamin) 1 Each Tablet 1 Tab PO DAILY Simethicone 125 Mg Capsule 120 Mg PO TID Senna Lax (Sennosides) 8.6 Mg Tablet 8.6 Mg PO BID Potassium Chloride 10 Meq Tablet.er 10 Meq PO DAILYWBKFT Actos (Pioglitazone Hcl) 30 Mg Tablet 30 Mg PO DAILY Pepcid (Famotidine) 20 Mg Tablet 20 Mg PO BID Novolog Flexpen (Insulin Aspart) 100 Unit/1 Ml Insuln.pen 8 Units SQ DAILYBFRLUN Novolog Flexpen (Insulin Aspart) 100 Unit/1 Ml Insuln.pen 4 Units SQ DAILYWBKFT Novolog Flexpen (Insulin Aspart) 100 Unit/1 Ml Insuln.pen 10 Unit SQ DAILYBFRSUP Mapap (Acetaminophen) 500 Mg Tablet 500 Mg PO PRN Q6HRS PRN Magnesium Oxide 400 Mg Tablet 400 Mg PO DAILY Lisinopril 20 Mg Tablet 20 Mg PO DAILY Levemir Flextouch (Insulin Detemir) 100 Unit/1 Ml Insuln.pen 26 Units SQ DAILYWBKFT Levemir Flextouch (Insulin Detemir) 100 Unit/1 Ml Insuln.pen 16 Units SQ HS Lasix (Furosemide) 40 Mg Tablet 40 Mg PO DAILY Haloperidol 10 Mg Tablet 15 Mg PO BID Haloperidol Lactate 5 Mg/1 Ml Vial 5 Mg IM PRN Q4HRS PRN Gemfibrozil 600 Mg Tablet 600 Mg PO BID Gabapentin 300 Mg Capsule 300 Mg PO TID Flonase Allergy Relief (Fluticasone Propionate) 9.9 Ml [place].susp 2 Sprays NS PRN PRN Docusate Sodium 100 Mg Capsule 100 Mg PO DAILY Docusate Sodium 100 Mg Capsule 100 Mg PO PRN DAILY PRN Clonidine Hcl 0.1 Mg Tablet 0.1 Mg PO HS Cetirizine Hcl 10 Mg Tablet 10 Mg PO DAILY Aspirin Ec (Aspirin) 81 Mg Tablet.dr 81 Mg PO DAILYWBKFT Amlodipine Besylate 10 Mg Tablet 10 Mg PO DAILY Abilify (Aripiprazole) 15 Mg Tablet 10 Mg PO BID I have reviewed the current psychotropics carefully including drug interactions. Risk benefit ratio favors no change other than as noted in my dictated progress note. Diagnosis: Problems: (1) Anxiety disorder (2) Bipolar affective, mixed, sev w/ psych (3) Schizoaffective disorder, chronic condition with acute exacerbation (4) Schizophrenia, disorganized, subchronic with acute exacerbation JASS HUNG MD December 31, 2017 20:50
[2018-01-01] MEDS: IPRATRPIUM/ALBUTEROL 0.5/2.5MG 3 ML NEBU. NEB SCH (04:10)
[2018-01-01] MEDS ORDERED: ALBUTEROL SULFATE 2.5 MG/3 ML NEBU. NEB PRN (04:45)
[2018-01-01 06:00] VITALS: BP 112/66
[2018-01-01 06:08] VITALS: BP 107/84
[2018-01-01 06:58] LABS: BASO % 1 % (0-3); EOS # 0.5 x10^3/uL (0.0-0.7); EOS % 11 % (0-3); HEMATOCRIT 29.9 % (36.0-47.0); HEMOGLOBIN 9.7 g/dL (12.0-15.5); LYMPH # 1.7 x10^3/uL (1.0-4.8); LYMPH % 38 % (24-48); MEAN CORPUSCULAR HEMOGLOBIN 27 pg (25-35); MEAN CORPUSCULAR HGB CONC 32 g/dL (31-37); MEAN CORPUSCULAR VOLUME 85 fL (79-100); MONO # 0.3 x10^3/uL (0.0-1.1); MONO % 7 % (0-9); NEUT % 44 % (31-73); PLATELET COUNT 216 x10^3/uL (140-400); RED BLOOD COUNT 3.53 x10^6/uL (3.50-5.40); RED CELL DISTRIBUTION WIDTH 16.4 % (11.5-14.5); WHITE BLOOD COUNT 4.6 x10^3/uL (4.0-11.0)
[2018-01-01 07:14] LABS: ALBUMIN 2.8 g/dL (3.4-5.0); ALBUMIN/GLOBULIN RATIO 0.8 (1.0-1.7); ALK PHOS 150 U/L (46-116); ALT (SGPT) 17 U/L (14-59); ANION GAP 6 (6-14); AST (SGOT) 13 U/L (15-37); BLOOD UREA NITROGEN 35 mg/dL (7-20); BUN/CREATININE RATIO 16 (6-20); CALCIUM 8.5 mg/dL (8.5-10.1); CARBON DIOXIDE 35 mmol/L (21-32); CHLORIDE 106 mmol/L (98-107); CREATININE 2.2 mg/dL (0.6-1.0); GFR 28.6; GLUCOSE 170 mg/dL (70-99); MAGNESIUM 2.4 mg/dL (1.8-2.4); POTASSIUM 4.4 mmol/L (3.5-5.1); SODIUM 147 mmol/L (136-145); TOTAL BILIRUBIN 0.2 mg/dL (0.2-1.0); TOTAL PROTEIN 6.3 g/dL (6.4-8.2)
[2018-01-01 07:15] LABS: VAL ACID 61 mcg/mL (50-100)
[2018-01-01] MEDS: POLYETHYLENE GLYCOL 3350 17 GM PACKET. PO SCH (07:52)
[2018-01-01] MEDS: POTASSIUM CHLORIDE 10 MEQ TABLET.ER. PO SCH (07:52)
[2018-01-01] MEDS: GEMFIBROZIL 600 MG TABLET. PO SCH ×2 (07:52→20:30)
[2018-01-01] MEDS: PIOGLITAZONE 15 MG TABLET. PO SCH (07:52)
[2018-01-01] MEDS: SENNOSIDES 8.6 MG TABLET PO SCH ×2 (07:53→20:30)
[2018-01-01] MEDS: SIMETHICONE 80 MG TAB.CHEW PO SCH ×3 (07:53→20:29)
[2018-01-01] MEDS: LACTOBACILLUS RHAMNOSUS GG 1 CAPSULE. PO SCH ×2 (07:53→20:30)
[2018-01-01] MEDS: CETIRIZINE HCL 10 MG TABLET PO SCH (07:53)
[2018-01-01] MEDS: MAGNESIUM OXIDE 400 MG TABLET PO SCH (07:53)
[2018-01-01] MEDS: amLODIPine BESYLATE 10 MG TABLET PO SCH (07:53)
[2018-01-01] MEDS: FUROSEMIDE 40 MG TABLET PO SCH (07:53)
[2018-01-01] MEDS: DOCUSATE SODIUM 100 MG CAPSULE PO SCH (07:53)
[2018-01-01] MEDS: GABAPENTIN 300 MG CAPSULE. PO SCH ×3 (07:53→20:29)
[2018-01-01] MEDS: traZODone 50 MG TABLET. PO SCH ×3 (07:54→17:00)
[2018-01-01] MEDS: HALOPERIDOL 5 MG TABLET PO SCH ×2 (07:54→20:30)
[2018-01-01] MEDS: LISINOPRIL 20 MG TABLET PO SCH (07:54)
[2018-01-01] MEDS: MULTIVITAMIN with MINERAL TABLET. PO SCH (07:54)
[2018-01-01] MEDS: FAMOTIDINE 20 MG TABLET PO SCH ×2 (07:56→20:30)
[2018-01-01] MEDS: INSULIN LISPRO 300 UNITS/3 ML INSULN.PEN. SQ SCH ×3 (08:00→17:00)
[2018-01-01] MEDS: INSULIN GLARGINE 300 UNITS/3 ML INSULN.PEN. SQ SCH ×2 (08:00→20:33)
--- NOTE | 2018-01-01 08:14 | RAD ---
PQRS Compliance Statement: One or more of the following individualized dose reduction techniques were utilized for this examination: 1. Automated exposure control 2. Adjustment of the mA and/or kV according to patient size 3. Use of iterative reconstruction technique CT HEAD WITHOUT CONTRAST History: FELL IN BATHROOM THIS MORNING ON LEFT SIDE, DID NOT HIT HEAD Comparison: None. Procedure: Axial images are obtained of the head from the skull base through the vertex without IV contrast. Findings: Exam quality is degraded due to streak artifact from the calvarium. The ventricles and sulci are normal for the patient's age. No mass-effect, midline shift, hemorrhage, extra-axial fluid collection, or obvious acute infarction is identified. Basilar cisterns are patent. Bone windows demonstrate no acute calvarial abnormality. Hyperostosis is noted. Question proptosis, correlate to physical exam. The visualized paranasal sinuses are clear. Mastoid air cells are well aerated. IMPRESSION: No acute intracranial abnormality. Electronically signed by: Dallas Wolff MD (01/01/2018 8:11 AM) [id number]
[2018-01-01 11:47] LABS: BACTERIA,URINE FEW /HPF (0-FEW); BILIRUBIN,URINE NEG (NEG); CLARITY,URINE HAZY; COLOR,URINE YELLOW; GLUCOSE,URINE 100 mg/dL (NEG); NITRITE,URINE NEG (NEG); RBC,URINE 0 /HPF (0-2); UROBILINOGEN,URINE 0.2 mg/dL (0.2 mg/dL)
[2018-01-01 11:48] LABS: SQUAMOUS EPITHELIAL CELL,UR FEW /LPF
[2018-01-01 16:23] VITALS: BP 139/73
--- NOTE | 2018-01-01 19:54 | PDOC ---
Exam Note: Tay Note: Please also refer to the separate dictated note~for this date of service dictated separately.~Patient seen individually. Discussed the patient with Nursing staff reviewed the chart.~Reviewed interim history and current functioning. Reviewed vital signs,~Labs/ Radiology~and current medications noted below. Continue current treatment with the changes noted in the dictated addendum note Assessment: Vital Signs: Vital Signs Date Time Temp Pulse Resp B/P (MAP) Pulse Ox O2 Delivery O2 Flow Rate FiO2 01/01/18 16:23 97.8 94 18 139/73 (95) 96 Room Air I&O Intake and Output 01/01/18 07:00 Intake Total 1080 ml Balance 1080 ml Intake Oral 1080 ml Labs: Laboratory Tests Test 01/01/18 06:07 01/01/18 06:46 01/01/18 11:16 01/01/18 11:37 Glucose (Fingerstick) 190 mg/dL (70-99) H 198 mg/dL (70-99) H White Blood Count 4.6 x10^3/uL (4.0-11.0) Red Blood Count 3.53 x10^6/uL (3.50-5.40) Hemoglobin 9.7 g/dL (12.0-15.5) L Hematocrit 29.9 % (36.0-47.0) L Mean Corpuscular Volume 85 fL (79-100) Mean Corpuscular Hemoglobin 27 pg (25-35) Mean Corpuscular Hemoglobin Concent 32 g/dL (31-37) Red Cell Distribution Width 16.4 % (11.5-14.5) H Platelet Count 216 x10^3/uL (140-400) Neutrophils (%) (Auto) 44 % (31-73) Lymphocytes (%) (Auto) 38 % (24-48) Monocytes (%) (Auto) 7 % (0-9) Eosinophils (%) (Auto) 11 % (0-3) H Basophils (%) (Auto) 1 % (0-3) Neutrophils # (Auto) 2.0 x10^3uL (1.8-7.7) Lymphocytes # (Auto) 1.7 x10^3/uL (1.0-4.8) Monocytes # (Auto) 0.3 x10^3/uL (0.0-1.1) Eosinophils # (Auto) 0.5 x10^3/uL (0.0-0.7) Basophils # (Auto) 0.0 x10^3/uL (0.0-0.2) Prothrombin Time 10.7 SEC (9.4-11.4) Prothrombin Time INR 1.0 (0.9-1.1) Sodium Level 147 mmol/L (136-145) H Potassium Level 4.4 mmol/L (3.5-5.1) Chloride Level 106 mmol/L (98-107) Carbon Dioxide Level 35 mmol/L (21-32) H Anion Gap 6 (6-14) Blood Urea Nitrogen 35 mg/dL (7-20) H Creatinine 2.2 mg/dL (0.6-1.0) H Estimated GFR (Cockcroft-Gault) 28.6 BUN/Creatinine Ratio 16 (6-20) Glucose Level 170 mg/dL (70-99) H Lactic Acid Level 1.2 mmol/L (0.4-2.0) Calcium Level 8.5 mg/dL (8.5-10.1) Magnesium Level 2.4 mg/dL (1.8-2.4) Total Bilirubin 0.2 mg/dL (0.2-1.0) Aspartate Amino Transferase (AST) 13 U/L (15-37) L Alanine Aminotransferase (ALT) 17 U/L (14-59) Alkaline Phosphatase 150 U/L (46-116) H Ammonia < 10 mcmol/L (11-34) L Total Protein 6.3 g/dL (6.4-8.2) L Albumin 2.8 g/dL (3.4-5.0) L Albumin/Globulin Ratio 0.8 (1.0-1.7) L Valproic Acid Level 61 mcg/mL (50-100) Valproic Acid Last Dose Date 12/31/2017 Valproic Acid Last Dose Time 2100 Urine Collection Type Unknown Urine Color Yellow Urine Clarity Hazy Urine pH 7.0 Urine Specific [place] 1.015 Urine Protein 100 mg/dl (NEG-TRACE) Urine Glucose (UA) 100 mg/dL (NEG) Urine Ketones (Stick) Neg mg/dL (NEG) Urine Blood Neg (NEG) Urine Nitrite Neg (NEG) Urine Bilirubin Neg (NEG) Urine Urobilinogen Dipstick 0.2 mg/dL (0.2 mg/dL) Urine Leukocyte Esterase Small (NEG) Urine RBC 0 /HPF (0-2) Urine WBC 1-4 /HPF (0-4) Urine Squamous Epithelial Cells Few /LPF Urine Bacteria Few /HPF (0-FEW) Urine Mucus Slight /LPF Test 01/01/18 16:51 01/01/18 19:15 Glucose (Fingerstick) 306 mg/dL (70-99) H 324 mg/dL (70-99) H Current Medications: Meds: Current Medications Acetaminophen (Tylenol) 650 mg PRN Q6HRS PRN PO PAIN / TEMP; Start 12/20/17 at 23:30; Status Cancel Multi-Ingredient Ointment (Analgesic [place]) 1 caridad PRN QID PRN TP MUSCLE PAIN; Start 12/20/17 at 23:30 Al Hydroxide/Mg Hydroxide (Mylanta Plus Xs) 15 ml PRN AFTMEALHC PRN PO DYSPEPSIA; Start 12/20/17 at 23:30 Magnesium Hydroxide (Milk Of Magnesia) 2,400 mg PRN QHS PRN PO CONSTIPATION; Start 12/20/17 at 23:30 Olanzapine (ZyPREXA ZYDIS) 5 mg PRN Q2HR PRN PO PSYCHOSIS; Start 12/21/17 at 01 :00 Aripiprazole (Abilify) 10 mg BID PO Last administered on 12/26/17at 08:44; Start 12/21/17 at 09:00; Stop 12/26/17 at 19:47; Status DC Clozapine (Clozaril) 75 mg QHS PO Last administered on 12/21/17at 20:40; Start 12/21/17 at 21:00; Stop 12/22/17 at 19:20; Status DC Divalproex Sodium (Depakote Er) 1,500 mg QHS PO Last administered on 12/24/17at 20:23; Start 12/21/17 at 21:00; Stop 12/25/17 at 19:22; Status DC Fluvoxamine Maleate (Luvox) 50 mg QHS PO Last administered on 12/31/17at 20:18; Start 12/21/17 at 21:00 Haloperidol (Haldol) 15 mg BID PO Last administered on 01/01/18at 07:54; Start 12/21/17 at 09:00 Haloperidol Lactate (Haldol) 5 mg PRN Q4HRS PRN IM AGITATION; Start 12/21/17 at 01:00; Stop 12/21/17 at 01:43; Status DC Clonidine HCl (Catapres) 0.1 mg HS PO Last administered on 12/31/17at 20:12; Start 12/21/17 at 21:00 Gabapentin (Neurontin) 300 mg TID PO Last administered on 01/01/18at 13:24; Start 12/21/17 at 10:00 Insulin Human Lispro (HumaLOG) 4 units DAILYWBKFT SQ Last administered on at 08:00; Start 12/22/17 at 08:00 Insulin Human Lispro (HumaLOG) 8 units DAILYBFRLUN SQ Last administered on 01/01at 13:28; Start 12/21/17 at 11:30 Insulin Human Lispro (HumaLOG) 10 units DAILYBFRSUP SQ Last administered on at 17:00; Start 12/21/17 at 17:00 Albuterol/ Ipratropium (Duoneb) 3 ml RTQID NEB Last administered on 01/01/18at 04:10; Start 12/21/17 at 12:00; Stop 01/01/18 at 04:40; Status DC Lactobacillus Rhamnosus (Culturelle) 1 cap BID PO Last administered on at 07:53; Start 12/21/17 at 10:00 Lisinopril (Prinivil) 20 mg DAILY PO Last administered on 01/01/18at 07:54; Start 12/21/17 at 10:00 Acetaminophen (Tylenol) 500 mg PRN Q6HRS PRN PO PAIN; Start 12/21/17 at 09:30 Amlodipine Besylate (Norvasc) 10 mg DAILY PO Last administered on 01/01/18 07: 53; Start 12/21/17 at 10:00 Cetirizine HCl (ZyrTEC) 10 mg DAILY PO Last administered on 01/01/18at 07:53; Start 12/21/17 at 10:00 Docusate Sodium (Colace) 100 mg DAILY PO Last administered on 01/01/18at 07:53; Start 12/21/17 at 10:00 Docusate Sodium (Colace) 100 mg PRN DAILY PRN PO CONSTIPATION; Start 12/21/17 at 10:00 Famotidine (Pepcid) 20 mg BID PO Last administered on 01/01/18 07:56; Start at 10:00 Fluticasone Propionate (Flonase) 2 spray PRN DAILY PRN NS ALLERGIES; Start at 09:30 Furosemide (Lasix) 40 mg DAILY PO Last administered on 01/01/18 07:53; Start 12/21/17 at 10:00 Gemfibrozil (Lopid) 600 mg BID PO Last administered on 01/01/18 07:52; Start 12/21/17 at 10:00 Insulin Glargine (Lantus) 16 units HS SQ Last administered on 12/31/17 20:20; Start 12/21/17 at 21:00 Insulin Glargine (Lantus) 26 units DAILYWBKFT SQ Last administered on 08:00; Start 12/22/17 at 08:00 Magnesium Oxide (Magnesium Oxide) 400 mg DAILY PO Last administered on 07:53; Start 12/21/17 at 10:00 Multivitamins/ Calcium (Thera-M Plus) 1 tab DAILY PO Last administered on 07:54; Start 12/21/17 at 10:00 Pioglitazone HCl (Actos) 30 mg DAILY PO Last administered on 01/01/18 07:52; Start 12/21/17 at 10:00 Polyethylene Glycol (miraLAX) 1 gm DAILY PO Last administered on 12/21/17at 10: 12; Start 12/21/17 at 10:00; Stop 12/22/17 at 09:12; Status DC Potassium Chloride (Klor-Con) 10 meq DAILYWBKFT PO Last administered on 07:52; Start 12/22/17 at 10:00 Sennosides (Senna) 8.6 mg BID PO Last administered on 01/01/18 07:53; Start at 10:00 Simethicone (Gas-X) 120 mg TID PO Last administered on 01/01/18 13:23; Start 12/21/17 at 10:00 Trazodone HCl (Desyrel) 12.5 mg TID@0900,1300,1700 PO Last administered on 01/01 17:00; Start 12/21/17 at 10:00 Artificial Tears (Artificial Tears) 1 drop PRN Q15MIN PRN OU DRY EYE Last administered on 12/22/17 15:57; Start 12/21/17 at 16:00 Polyethylene Glycol (miraLAX) 17 gm DAILY PO Last administered on 01/01/18at 07: 52; Start 12/23/17 at 09:00 Clozapine (Clozaril) 100 mg QHS PO Last administered on 12/27/17at 20:22; Start 12/22/17 at 21:00; Stop 12/28/17 at 16:39; Status DC Divalproex Sodium (Depakote Er) 1,750 mg QHS PO ; Start 12/25/17 at 21:00; Stop 12/25/17 at 21:00; Status DC Divalproex Sodium (Depakote Er) 1,500 mg QHS PO Last administered on 12/31/17at 20:16; Start 12/25/17 at 21:00 Divalproex Sodium (Depakote Er) 250 mg QHS PO Last administered on 12/31/17 20 :16; Start 12/25/17 at 21:00 Clozapine (Clozaril) 125 mg QHS PO ; Start 12/28/17 at 21:00; Status UNV Clozapine (Clozaril) 25 mg QHS PO Last administered on 12/31/17 20:15; Start 12/28/17 at 21:00 Clozapine (Clozaril) 100 mg QHS PO Last administered on 12/31/17at 20:13; Start 12/28/17 at 21:00 Albuterol Sulfate (Ventolin) 2.5 mg PRN QID PRN NEB SHORTNESS OF BREATH; Start 01/01/18 at 04:45 Active Scripts Active Reported Duoneb 0.5-3(2.5) Mg/3 Ml (Albuterol/Ipratropium) 3 Ml Ampul.neb 3 Ml NEB RTQID Trazodone Hcl 50 Mg Tablet 12.5 Mg PO TID@0900,1300,1700 Fluvoxamine Maleate 50 Mg Tablet 50 Mg PO QHS Clozaril (Clozapine) 25 Mg Tablet 75 Mg PO QHS Miralax (Polyethylene Glycol 3350) 17 Gm Powd.pack 1 Packet PO DAILY Zyprexa Zydis (Olanzapine) 5 Mg Tab.rapdis 5 Mg PO PRN Q2HR PRN Depakote Er (Divalproex Sodium) 500 Mg Tab.er.24h 1,500 Tab PO QHS Culturelle (Lactobacillus Rhamnosus Gg) 1 Each Cap.sprink 1 Each PO BID Multi Vitamin Daily (Multivitamin) 1 Each Tablet 1 Tab PO DAILY Simethicone 125 Mg Capsule 120 Mg PO TID Senna Lax (Sennosides) 8.6 Mg Tablet 8.6 Mg PO BID Potassium Chloride 10 Meq Tablet.er 10 Meq PO DAILYWBKFT Actos (Pioglitazone Hcl) 30 Mg Tablet 30 Mg PO DAILY Pepcid (Famotidine) 20 Mg Tablet 20 Mg PO BID Novolog Flexpen (Insulin Aspart) 100 Unit/1 Ml Insuln.pen 8 Units SQ DAILYBFRLUN Novolog Flexpen (Insulin Aspart) 100 Unit/1 Ml Insuln.pen 4 Units SQ DAILYWBKFT Novolog Flexpen (Insulin Aspart) 100 Unit/1 Ml Insuln.pen 10 Unit SQ DAILYBFRSUP Mapap (Acetaminophen) 500 Mg Tablet 500 Mg PO PRN Q6HRS PRN Magnesium Oxide 400 Mg Tablet 400 Mg PO DAILY Lisinopril 20 Mg Tablet 20 Mg PO DAILY Levemir Flextouch (Insulin Detemir) 100 Unit/1 Ml Insuln.pen 26 Units SQ DAILYWBKFT Levemir Flextouch (Insulin Detemir) 100 Unit/1 Ml Insuln.pen 16 Units SQ HS Lasix (Furosemide) 40 Mg Tablet 40 Mg PO DAILY Haloperidol 10 Mg Tablet 15 Mg PO BID Haloperidol Lactate 5 Mg/1 Ml Vial 5 Mg IM PRN Q4HRS PRN Gemfibrozil 600 Mg Tablet 600 Mg PO BID Gabapentin 300 Mg Capsule 300 Mg PO TID Flonase Allergy Relief (Fluticasone Propionate) 9.9 Ml [place].susp 2 Sprays NS PRN PRN Docusate Sodium 100 Mg Capsule 100 Mg PO DAILY Docusate Sodium 100 Mg Capsule 100 Mg PO PRN DAILY PRN Clonidine Hcl 0.1 Mg Tablet 0.1 Mg PO HS Cetirizine Hcl 10 Mg Tablet 10 Mg PO DAILY Aspirin Ec (Aspirin) 81 Mg Tablet. 81 Mg PO DAILYWBKFT Amlodipine Besylate 10 Mg Tablet 10 Mg PO DAILY Abilify (Aripiprazole) 15 Mg Tablet 10 Mg PO BID I have reviewed the current psychotropics carefully including drug interactions. Risk benefit ratio favors no change other than as noted in my dictated progress note. Diagnosis: Problems: (1) Anxiety disorder (2) Bipolar affective, mixed, sev w/ psych (3) Schizoaffective disorder, chronic condition with acute exacerbation (4) Schizophrenia, disorganized, subchronic with acute exacerbation JASS HUNG MD January 01, 2018 19:54
[2018-01-01] MEDS: cloZAPine 25 MG TABLET PO SCH (20:29)
[2018-01-01] MEDS: cloZAPine 100 MG TABLET PO SCH (20:29)
[2018-01-01] MEDS: DIVALPROEX ER 500 MG TAB.ER.24H PO SCH (20:30)
[2018-01-01] MEDS: DIVALPROEX ER 250 MG TAB.ER.24H. PO SCH (20:30)
[2018-01-01] MEDS: cloNIDine HCL 0.1 MG TABLET PO SCH (20:31)
--- NOTE | 2018-01-01 21:54 | PN ---
DATE: 12/31/2017 This is a late entry, 12/31/2017, covers the elements not covered in my initial note. SUBJECTIVE: I met with the patient in the evening and staffed at a treatment team meeting with the entire team in the morning. I reviewed her history, progress, discharge plans at length. Blood sugar gets low at times. REVIEW OF SYSTEMS: No CV, , pulmonary, eye, ENT system symptoms on review. MENTAL STATUS EXAM: Oriented to herself and situation. Speech has some latency, coherent. Abstraction fair, computation impaired, language function intact, less psychotic. Mood and affect less withdrawn. LABORATORY DATA: Reviewed. IMPRESSION: Unchanged from initial note. PLAN: Continue current psychotropics. Valproic acid level therapeutic at 65. MAN Prosper HUNG MD DR: KATIANA/ailcia JOB#: [id number] / [id number]
--- NOTE | 2018-01-01 21:55 | PN ---
DATE: 12/30/2017 This is a late entry 12/30/2017 covers elements not covered in my initial note 12/30/2017. I met with the patient in the evening. The patient slept 7-1/4 hours at morning, she was wandering, somewhat sedated at times, then standing at the window looking out oblivious of what she was doing. Has a wet cough, but chest x-ray unremarkable. Labs unremarkable. She has vague somatic symptoms, fixated obsessing about discharge plans addressed at great length with her individually. No CV, , pulmonary, eye system symptoms on review. MENTAL STATUS EXAM: Oriented to herself and situation. Speech coherent, abstraction fair, computation impaired, language function intact, attention span short. Mood and affect remain somewhat anxious, labile, less psychotic. LABORATORY DATA: Reviewed. IMPRESSION: Unchanged from initial note. PLAN: Continue current psychotropics, gradually increase Clozaril, reduce Haldol. JASS HUNG MD DR: KATIANA/alicia JOB#: [id number] / [id number]
[2018-01-02 06:28] VITALS: BP 106/52
[2018-01-02] MEDS: CETIRIZINE HCL 10 MG TABLET PO SCH (07:19)
[2018-01-02] MEDS: GABAPENTIN 300 MG CAPSULE. PO SCH ×3 (07:19→19:39)
[2018-01-02] MEDS: MAGNESIUM OXIDE 400 MG TABLET PO SCH (07:19)
[2018-01-02] MEDS: SENNOSIDES 8.6 MG TABLET PO SCH ×2 (07:19→19:43)
[2018-01-02] MEDS: MULTIVITAMIN with MINERAL TABLET. PO SCH (07:20)
[2018-01-02] MEDS: GEMFIBROZIL 600 MG TABLET. PO SCH ×2 (07:20→19:44)
[2018-01-02] MEDS: LACTOBACILLUS RHAMNOSUS GG 1 CAPSULE. PO SCH ×2 (07:20→19:39)
[2018-01-02] MEDS: traZODone 50 MG TABLET. PO SCH ×3 (07:20→17:00)
[2018-01-02] MEDS: FUROSEMIDE 40 MG TABLET PO SCH (07:21)
[2018-01-02] MEDS: HALOPERIDOL 5 MG TABLET PO SCH ×2 (07:21→19:44)
[2018-01-02] MEDS: DOCUSATE SODIUM 100 MG CAPSULE PO SCH (07:21)
[2018-01-02] MEDS: POTASSIUM CHLORIDE 10 MEQ TABLET.ER. PO SCH (07:21)
[2018-01-02] MEDS: POLYETHYLENE GLYCOL 3350 17 GM PACKET. PO SCH (07:22)
[2018-01-02] MEDS: FAMOTIDINE 20 MG TABLET PO SCH ×2 (07:22→19:44)
[2018-01-02] MEDS: PIOGLITAZONE 15 MG TABLET. PO SCH (07:22)
[2018-01-02] MEDS: SIMETHICONE 80 MG TAB.CHEW PO SCH ×3 (07:22→19:45)
[2018-01-02] MEDS: LISINOPRIL 20 MG TABLET PO SCH (07:23)
[2018-01-02] MEDS: amLODIPine BESYLATE 10 MG TABLET PO SCH (07:23)
[2018-01-02] MEDS: INSULIN GLARGINE 300 UNITS/3 ML INSULN.PEN. SQ SCH ×2 (08:00→22:30)
[2018-01-02] MEDS: INSULIN LISPRO 300 UNITS/3 ML INSULN.PEN. SQ SCH ×3 (08:00→17:00)
[2018-01-02 16:22] VITALS: BP 156/78
[2018-01-02] MEDS: cloZAPine 100 MG TABLET PO SCH (19:39)
[2018-01-02] MEDS: DIVALPROEX ER 250 MG TAB.ER.24H. PO SCH (19:39)
[2018-01-02] MEDS: cloZAPine 25 MG TABLET PO SCH (19:39)
[2018-01-02] MEDS: DIVALPROEX ER 500 MG TAB.ER.24H PO SCH (19:43)
[2018-01-02] MEDS: cloNIDine HCL 0.1 MG TABLET PO SCH (19:45)
--- NOTE | 2018-01-02 23:25 | PDOC ---
Exam Note: Tay Note: Please also refer to the separate dictated note~for this date of service dictated separately.~Patient seen individually. Discussed the patient with Nursing staff reviewed the chart.~Reviewed interim history and current functioning. Reviewed vital signs,~Labs/ Radiology~and current medications noted below. Continue current treatment with the changes noted in the dictated addendum note Assessment: Vital Signs: Vital Signs Date Time Temp Pulse Resp B/P (MAP) Pulse Ox O2 Delivery O2 Flow Rate FiO2 01/02/18 19:45 88 156/78 01/02/18 16:22 97.1 18 92 01/01/18 16:23 Room Air I&O Intake and Output 01/02/18 07:00 Intake Total 2640 ml Balance 2640 ml Intake Oral 2640 ml Labs: Laboratory Tests Test 01/02/18 07:48 01/02/18 11:41 01/02/18 16:48 01/02/18 19:22 Glucose (Fingerstick) 190 mg/dL (70-99) H 313 mg/dL (70-99) H 222 mg/dL (70-99) H 180 mg/dL (70-99) H Current Medications: Meds: Current Medications Acetaminophen (Tylenol) 650 mg PRN Q6HRS PRN PO PAIN / TEMP; Start 12/20/17 at 23:30; Status Cancel Multi-Ingredient Ointment (Analgesic [place]) 1 caridad PRN QID PRN TP MUSCLE PAIN; Start 12/20/17 at 23:30 Al Hydroxide/Mg Hydroxide (Mylanta Plus Xs) 15 ml PRN AFTMEALHC PRN PO DYSPEPSIA; Start 12/20/17 at 23:30 Magnesium Hydroxide (Milk Of Magnesia) 2,400 mg PRN QHS PRN PO CONSTIPATION; Start 12/20/17 at 23:30 Olanzapine (ZyPREXA ZYDIS) 5 mg PRN Q2HR PRN PO PSYCHOSIS; Start 12/21/17 at 01 :00 Aripiprazole (Abilify) 10 mg BID PO Last administered on 12/26/17at 08:44; Start 12/21/17 at 09:00; Stop 12/26/17 at 19:47; Status DC Clozapine (Clozaril) 75 mg QHS PO Last administered on 12/21/17at 20:40; Start 12/21/17 at 21:00; Stop 12/22/17 at 19:20; Status DC Divalproex Sodium (Depakote Er) 1,500 mg QHS PO Last administered on 12/24/17at 20:23; Start 12/21/17 at 21:00; Stop 12/25/17 at 19:22; Status DC Fluvoxamine Maleate (Luvox) 50 mg QHS PO Last administered on 01/02/18 19:44; Start 12/21/17 at 21:00 Haloperidol (Haldol) 15 mg BID PO Last administered on 01/02/18 19:44; Start 12/21/17 at 09:00 Haloperidol Lactate (Haldol) 5 mg PRN Q4HRS PRN IM AGITATION; Start 12/21/17 at 01:00; Stop 12/21/17 at 01:43; Status DC Clonidine HCl (Catapres) 0.1 mg HS PO Last administered on 01/02/18 19:45; Start 12/21/17 at 21:00 Gabapentin (Neurontin) 300 mg TID PO Last administered on 01/02/18 19:39; Start 12/21/17 at 10:00 Insulin Human Lispro (HumaLOG) 4 units DAILYWBKFT SQ Last administered on 08:00; Start 12/22/17 at 08:00 Insulin Human Lispro (HumaLOG) 8 units DAILYBFRLUN SQ Last administered on 01/02 11:30; Start 12/21/17 at 11:30 Insulin Human Lispro (HumaLOG) 10 units DAILYBFRSUP SQ Last administered on at 17:00; Start 12/21/17 at 17:00 Albuterol/ Ipratropium (Duoneb) 3 ml RTQID NEB Last administered on 01/01/18 04:10; Start 12/21/17 at 12:00; Stop 01/01/18 at 04:40; Status DC Lactobacillus Rhamnosus (Culturelle) 1 cap BID PO Last administered on 19:39; Start 12/21/17 at 10:00 Lisinopril (Prinivil) 20 mg DAILY PO Last administered on 01/01/18at 07:54; Start 12/21/17 at 10:00 Acetaminophen (Tylenol) 500 mg PRN Q6HRS PRN PO PAIN; Start 12/21/17 at 09:30 Amlodipine Besylate (Norvasc) 10 mg DAILY PO Last administered on 01/01/18 07: 53; Start 12/21/17 at 10:00 Cetirizine HCl (ZyrTEC) 10 mg DAILY PO Last administered on 01/02/18 07:19; Start 12/21/17 at 10:00 Docusate Sodium (Colace) 100 mg DAILY PO Last administered on 01/02/18 07:21; Start 12/21/17 at 10:00 Docusate Sodium (Colace) 100 mg PRN DAILY PRN PO CONSTIPATION; Start 12/21/17 at 10:00 Famotidine (Pepcid) 20 mg BID PO Last administered on 01/02/18 19:44; Start at 10:00 Fluticasone Propionate (Flonase) 2 spray PRN DAILY PRN NS ALLERGIES; Start at 09:30 Furosemide (Lasix) 40 mg DAILY PO Last administered on 01/02/18 07:21; Start 12/21/17 at 10:00 Gemfibrozil (Lopid) 600 mg BID PO Last administered on 01/02/18 19:44; Start 12/21/17 at 10:00 Insulin Glargine (Lantus) 16 units HS SQ Last administered on 01/02/18 22:30; Start 12/21/17 at 21:00 Insulin Glargine (Lantus) 26 units DAILYWBKFT SQ Last administered on 08:00; Start 12/22/17 at 08:00 Magnesium Oxide (Magnesium Oxide) 400 mg DAILY PO Last administered on 07:19; Start 12/21/17 at 10:00 Multivitamins/ Calcium (Thera-M Plus) 1 tab DAILY PO Last administered on 07:20; Start 12/21/17 at 10:00 Pioglitazone HCl (Actos) 30 mg DAILY PO Last administered on 01/02/18 07:22; Start 12/21/17 at 10:00 Polyethylene Glycol (miraLAX) 1 gm DAILY PO Last administered on 5/14/18at 10: 12; Start 12/21/17 at 10:00; Stop 12/22/17 at 09:12; Status DC Potassium Chloride (Klor-Con) 10 meq DAILYWBKFT PO Last administered on 07:21; Start 12/22/17 at 10:00 Sennosides (Senna) 8.6 mg BID PO Last administered on 01/02/18 19:43; Start at 10:00 Simethicone (Gas-X) 120 mg TID PO Last administered on 01/02/18 19:45; Start 12/21/17 at 10:00 Trazodone HCl (Desyrel) 12.5 mg TID@0900,1300,1700 PO Last administered on 01/02 17:00; Start 12/21/17 at 10:00 Artificial Tears (Artificial Tears) 1 drop PRN Q15MIN PRN OU DRY EYE Last administered on 12/22/17 15:57; Start 12/21/17 at 16:00 Polyethylene Glycol (miraLAX) 17 gm DAILY PO Last administered on 01/02/18 07: 22; Start 12/23/17 at 09:00 Clozapine (Clozaril) 100 mg QHS PO Last administered on 12/27/17 20:22; Start 12/22/17 at 21:00; Stop 12/28/17 at 16:39; Status DC Divalproex Sodium (Depakote Er) 1,750 mg QHS PO ; Start 12/25/17 at 21:00; Stop 12/25/17 at 21:00; Status DC Divalproex Sodium (Depakote Er) 1,500 mg QHS PO Last administered on 01/02/18 19:43; Start 12/25/17 at 21:00 Divalproex Sodium (Depakote Er) 250 mg QHS PO Last administered on 01/02/18 19 :39; Start 12/25/17 at 21:00 Clozapine (Clozaril) 125 mg QHS PO ; Start 12/28/17 at 21:00; Status UNV Clozapine (Clozaril) 25 mg QHS PO Last administered on 01/02/18 19:39; Start 12/28/17 at 21:00 Clozapine (Clozaril) 100 mg QHS PO Last administered on 01/02/18at 19:39; Start 12/28/17 at 21:00 Albuterol Sulfate (Ventolin) 2.5 mg PRN QID PRN NEB SHORTNESS OF BREATH; Start 01/01/18 at 04:45 Active Scripts Active Reported Duoneb 0.5-3(2.5) Mg/3 Ml (Albuterol/Ipratropium) 3 Ml Ampul.neb 3 Ml NEB RTQID Trazodone Hcl 50 Mg Tablet 12.5 Mg PO TID@0900,1300,1700 Fluvoxamine Maleate 50 Mg Tablet 50 Mg PO QHS Clozaril (Clozapine) 25 Mg Tablet 75 Mg PO QHS Miralax (Polyethylene Glycol 3350) 17 Gm Powd.pack 1 Packet PO DAILY Zyprexa Zydis (Olanzapine) 5 Mg Tab.rapdis 5 Mg PO PRN Q2HR PRN Depakote Er (Divalproex Sodium) 500 Mg Tab.er.24h 1,500 Tab PO QHS Culturelle (Lactobacillus Rhamnosus Gg) 1 Each Cap.sprink 1 Each PO BID Multi Vitamin Daily (Multivitamin) 1 Each Tablet 1 Tab PO DAILY Simethicone 125 Mg Capsule 120 Mg PO TID Senna Lax (Sennosides) 8.6 Mg Tablet 8.6 Mg PO BID Potassium Chloride 10 Meq Tablet.er 10 Meq PO DAILYWBKFT Actos (Pioglitazone Hcl) 30 Mg Tablet 30 Mg PO DAILY Pepcid (Famotidine) 20 Mg Tablet 20 Mg PO BID Novolog Flexpen (Insulin Aspart) 100 Unit/1 Ml Insuln.pen 8 Units SQ DAILYBFRLUN Novolog Flexpen (Insulin Aspart) 100 Unit/1 Ml Insuln.pen 4 Units SQ DAILYWBKFT Novolog Flexpen (Insulin Aspart) 100 Unit/1 Ml Insuln.pen 10 Unit SQ DAILYBFRSUP Mapap (Acetaminophen) 500 Mg Tablet 500 Mg PO PRN Q6HRS PRN Magnesium Oxide 400 Mg Tablet 400 Mg PO DAILY Lisinopril 20 Mg Tablet 20 Mg PO DAILY Levemir Flextouch (Insulin Detemir) 100 Unit/1 Ml Insuln.pen 26 Units SQ DAILYWBKFT Levemir Flextouch (Insulin Detemir) 100 Unit/1 Ml Insuln.pen 16 Units SQ HS Lasix (Furosemide) 40 Mg Tablet 40 Mg PO DAILY Haloperidol 10 Mg Tablet 15 Mg PO BID Haloperidol Lactate 5 Mg/1 Ml Vial 5 Mg IM PRN Q4HRS PRN Gemfibrozil 600 Mg Tablet 600 Mg PO BID Gabapentin 300 Mg Capsule 300 Mg PO TID Flonase Allergy Relief (Fluticasone Propionate) 9.9 Ml [place].susp 2 Sprays NS PRN PRN Docusate Sodium 100 Mg Capsule 100 Mg PO DAILY Docusate Sodium 100 Mg Capsule 100 Mg PO PRN DAILY PRN Clonidine Hcl 0.1 Mg Tablet 0.1 Mg PO HS Cetirizine Hcl 10 Mg Tablet 10 Mg PO DAILY Aspirin Ec (Aspirin) 81 Mg Tablet.dr 81 Mg PO DAILYWBKFT Amlodipine Besylate 10 Mg Tablet 10 Mg PO DAILY Abilify (Aripiprazole) 15 Mg Tablet 10 Mg PO BID I have reviewed the current psychotropics carefully including drug interactions. Risk benefit ratio favors no change other than as noted in my dictated progress note. Diagnosis: Problems: (1) Anxiety disorder (2) Bipolar affective, mixed, sev w/ psych (3) Schizoaffective disorder, chronic condition with acute exacerbation (4) Schizophrenia, disorganized, subchronic with acute exacerbation JASS HUNG MD January 02, 2018 23:25
[2018-01-03 06:22] VITALS: BP 145/64
[2018-01-03] MEDS: CETIRIZINE HCL 10 MG TABLET PO SCH (07:27)
[2018-01-03] MEDS: POLYETHYLENE GLYCOL 3350 17 GM PACKET. PO SCH (07:27)
[2018-01-03] MEDS: GEMFIBROZIL 600 MG TABLET. PO SCH ×2 (07:27→20:56)
[2018-01-03] MEDS: DOCUSATE SODIUM 100 MG CAPSULE PO SCH (07:27)
[2018-01-03] MEDS: amLODIPine BESYLATE 10 MG TABLET PO SCH (07:28)
[2018-01-03] MEDS: traZODone 50 MG TABLET. PO SCH ×3 (07:28→17:00)
[2018-01-03] MEDS: GABAPENTIN 300 MG CAPSULE. PO SCH ×3 (07:28→20:57)
[2018-01-03] MEDS: LACTOBACILLUS RHAMNOSUS GG 1 CAPSULE. PO SCH ×2 (07:28→20:57)
[2018-01-03] MEDS: POTASSIUM CHLORIDE 10 MEQ TABLET.ER. PO SCH (07:28)
[2018-01-03] MEDS: SENNOSIDES 8.6 MG TABLET PO SCH ×2 (07:28→20:56)
[2018-01-03] MEDS: HALOPERIDOL 5 MG TABLET PO SCH ×2 (07:29→20:55)
[2018-01-03] MEDS: MULTIVITAMIN with MINERAL TABLET. PO SCH (07:29)
[2018-01-03] MEDS: SIMETHICONE 80 MG TAB.CHEW PO SCH ×3 (07:29→20:55)
[2018-01-03] MEDS: FUROSEMIDE 40 MG TABLET PO SCH (07:29)
[2018-01-03] MEDS: FAMOTIDINE 20 MG TABLET PO SCH ×2 (07:29→20:56)
[2018-01-03] MEDS: MAGNESIUM OXIDE 400 MG TABLET PO SCH (07:30)
[2018-01-03] MEDS: PIOGLITAZONE 15 MG TABLET. PO SCH (07:30)
[2018-01-03] MEDS: LISINOPRIL 20 MG TABLET PO SCH (07:30)
[2018-01-03] MEDS: INSULIN GLARGINE 300 UNITS/3 ML INSULN.PEN. SQ SCH ×2 (08:00→20:59)
[2018-01-03] MEDS: INSULIN LISPRO 300 UNITS/3 ML INSULN.PEN. SQ SCH ×3 (08:00→17:00)
[2018-01-03 16:50] VITALS: BP 141/65
[2018-01-03] MEDS: DIVALPROEX ER 250 MG TAB.ER.24H. PO SCH (20:56)
[2018-01-03] MEDS: cloZAPine 25 MG TABLET PO SCH (20:56)
[2018-01-03] MEDS: DIVALPROEX ER 500 MG TAB.ER.24H PO SCH (20:56)
[2018-01-03] MEDS: cloZAPine 100 MG TABLET PO SCH (20:56)
[2018-01-03] MEDS: cloNIDine HCL 0.1 MG TABLET PO SCH (20:57)
--- NOTE | 2018-01-03 21:00 | PDOC ---
Exam Note: Tay Note: Please also refer to the separate dictated note~for this date of service dictated separately.~Patient seen individually. Discussed the patient with Nursing staff reviewed the chart.~Reviewed interim history and current functioning. Reviewed vital signs,~Labs/ Radiology~and current medications noted below. Continue current treatment with the changes noted in the dictated addendum note Assessment: Vital Signs: Vital Signs Date Time Temp Pulse Resp B/P (MAP) Pulse Ox O2 Delivery O2 Flow Rate FiO2 01/03/18 20:57 91 141/65 01/03/18 16:50 97.1 21 99 01/01/18 16:23 Room Air I&O Intake and Output 01/03/18 07:00 Intake Total 720 ml Balance 720 ml Intake Oral 720 ml Labs: Laboratory Tests Test 01/03/18 07:50 01/03/18 11:17 01/03/18 16:18 01/03/18 19:27 Glucose (Fingerstick) 141 mg/dL (70-99) H 369 mg/dL (70-99) H 220 mg/dL (70-99) H 330 mg/dL (70-99) H Current Medications: Meds: Current Medications Acetaminophen (Tylenol) 650 mg PRN Q6HRS PRN PO PAIN / TEMP; Start 12/20/17 at 23:30; Status Cancel Multi-Ingredient Ointment (Analgesic [place]) 1 caridad PRN QID PRN TP MUSCLE PAIN; Start 12/20/17 at 23:30 Al Hydroxide/Mg Hydroxide (Mylanta Plus Xs) 15 ml PRN AFTMEALHC PRN PO DYSPEPSIA; Start 12/20/17 at 23:30 Magnesium Hydroxide (Milk Of Magnesia) 2,400 mg PRN QHS PRN PO CONSTIPATION; Start 12/20/17 at 23:30 Olanzapine (ZyPREXA ZYDIS) 5 mg PRN Q2HR PRN PO PSYCHOSIS; Start 12/21/17 at 01 :00 Aripiprazole (Abilify) 10 mg BID PO Last administered on 12/26/17at 08:44; Start 12/21/17 at 09:00; Stop 12/26/17 at 19:47; Status DC Clozapine (Clozaril) 75 mg QHS PO Last administered on 12/21/17at 20:40; Start 12/21/17 at 21:00; Stop 12/22/17 at 19:20; Status DC Divalproex Sodium (Depakote Er) 1,500 mg QHS PO Last administered on 12/24/17 20:23; Start 12/21/17 at 21:00; Stop 12/25/17 at 19:22; Status DC Fluvoxamine Maleate (Luvox) 50 mg QHS PO Last administered on 01/03/18 20:55; Start 12/21/17 at 21:00 Haloperidol (Haldol) 15 mg BID PO Last administered on 01/03/18 20:55; Start 12/21/17 at 09:00 Haloperidol Lactate (Haldol) 5 mg PRN Q4HRS PRN IM AGITATION; Start 12/21/17 at 01:00; Stop 12/21/17 at 01:43; Status DC Clonidine HCl (Catapres) 0.1 mg HS PO Last administered on 01/03/18 20:57; Start 12/21/17 at 21:00 Gabapentin (Neurontin) 300 mg TID PO Last administered on 01/03/18 20:57; Start 12/21/17 at 10:00 Insulin Human Lispro (HumaLOG) 4 units DAILYWBKFT SQ Last administered on 08:00; Start 12/22/17 at 08:00 Insulin Human Lispro (HumaLOG) 8 units DAILYBFRLUN SQ Last administered on 01/03at 11:30; Start 12/21/17 at 11:30 Insulin Human Lispro (HumaLOG) 10 units DAILYBFRSUP SQ Last administered on at 17:00; Start 12/21/17 at 17:00 Albuterol/ Ipratropium (Duoneb) 3 ml RTQID NEB Last administered on 01/01/18 04:10; Start 12/21/17 at 12:00; Stop 01/01/18 at 04:40; Status DC Lactobacillus Rhamnosus (Culturelle) 1 cap BID PO Last administered on 20:57; Start 12/21/17 at 10:00 Lisinopril (Prinivil) 20 mg DAILY PO Last administered on 01/03/18at 07:30; Start 12/21/17 at 10:00 Acetaminophen (Tylenol) 500 mg PRN Q6HRS PRN PO PAIN; Start 12/21/17 at 09:30 Amlodipine Besylate (Norvasc) 10 mg DAILY PO Last administered on 01/03/18 07: 28; Start 12/21/17 at 10:00 Cetirizine HCl (ZyrTEC) 10 mg DAILY PO Last administered on 01/03/18 07:27; Start 12/21/17 at 10:00 Docusate Sodium (Colace) 100 mg DAILY PO Last administered on 01/03/18 07:27; Start 12/21/17 at 10:00 Docusate Sodium (Colace) 100 mg PRN DAILY PRN PO CONSTIPATION; Start 12/21/17 at 10:00 Famotidine (Pepcid) 20 mg BID PO Last administered on 01/03/18 20:56; Start at 10:00 Fluticasone Propionate (Flonase) 2 spray PRN DAILY PRN NS ALLERGIES; Start at 09:30 Furosemide (Lasix) 40 mg DAILY PO Last administered on 01/03/18 07:29; Start 12/21/17 at 10:00 Gemfibrozil (Lopid) 600 mg BID PO Last administered on 01/03/18 20:56; Start 12/21/17 at 10:00 Insulin Glargine (Lantus) 16 units HS SQ Last administered on 01/03/18 20:59; Start 12/21/17 at 21:00 Insulin Glargine (Lantus) 26 units DAILYWBKFT SQ Last administered on 08:00; Start 12/22/17 at 08:00 Magnesium Oxide (Magnesium Oxide) 400 mg DAILY PO Last administered on 07:30; Start 12/21/17 at 10:00 Multivitamins/ Calcium (Thera-M Plus) 1 tab DAILY PO Last administered on 07:29; Start 12/21/17 at 10:00 Pioglitazone HCl (Actos) 30 mg DAILY PO Last administered on 01/03/18 07:30; Start 12/21/17 at 10:00 Polyethylene Glycol (miraLAX) 1 gm DAILY PO Last administered on 5/14/18at 10: 12; Start 12/21/17 at 10:00; Stop 12/22/17 at 09:12; Status DC Potassium Chloride (Klor-Con) 10 meq DAILYWBKFT PO Last administered on 07:28; Start 12/22/17 at 10:00 Sennosides (Senna) 8.6 mg BID PO Last administered on 01/03/18 20:56; Start at 10:00 Simethicone (Gas-X) 120 mg TID PO Last administered on 01/03/18 20:55; Start 12/21/17 at 10:00 Trazodone HCl (Desyrel) 12.5 mg TID@0900,1300,1700 PO Last administered on 01/03 17:00; Start 12/21/17 at 10:00 Artificial Tears (Artificial Tears) 1 drop PRN Q15MIN PRN OU DRY EYE Last administered on 12/22/17 15:57; Start 12/21/17 at 16:00 Polyethylene Glycol (miraLAX) 17 gm DAILY PO Last administered on 01/03/18 07: 27; Start 12/23/17 at 09:00 Clozapine (Clozaril) 100 mg QHS PO Last administered on 12/27/17 20:22; Start 12/22/17 at 21:00; Stop 12/28/17 at 16:39; Status DC Divalproex Sodium (Depakote Er) 1,750 mg QHS PO ; Start 12/25/17 at 21:00; Stop 12/25/17 at 21:00; Status DC Divalproex Sodium (Depakote Er) 1,500 mg QHS PO Last administered on 01/03/18 20:56; Start 12/25/17 at 21:00 Divalproex Sodium (Depakote Er) 250 mg QHS PO Last administered on 01/03/18 20 :56; Start 12/25/17 at 21:00 Clozapine (Clozaril) 125 mg QHS PO ; Start 12/28/17 at 21:00; Status UNV Clozapine (Clozaril) 25 mg QHS PO Last administered on 01/03/18 20:56; Start 12/28/17 at 21:00 Clozapine (Clozaril) 100 mg QHS PO Last administered on 01/03/18at 20:56; Start 12/28/17 at 21:00 Albuterol Sulfate (Ventolin) 2.5 mg PRN QID PRN NEB SHORTNESS OF BREATH; Start 01/01/18 at 04:45 Active Scripts Active Reported Duoneb 0.5-3(2.5) Mg/3 Ml (Albuterol/Ipratropium) 3 Ml Ampul.neb 3 Ml NEB RTQID Trazodone Hcl 50 Mg Tablet 12.5 Mg PO TID@0900,1300,1700 Fluvoxamine Maleate 50 Mg Tablet 50 Mg PO QHS Clozaril (Clozapine) 25 Mg Tablet 75 Mg PO QHS Miralax (Polyethylene Glycol 3350) 17 Gm Powd.pack 1 Packet PO DAILY Zyprexa Zydis (Olanzapine) 5 Mg Tab.rapdis 5 Mg PO PRN Q2HR PRN Depakote Er (Divalproex Sodium) 500 Mg Tab.er.24h 1,500 Tab PO QHS Culturelle (Lactobacillus Rhamnosus Gg) 1 Each Cap.sprink 1 Each PO BID Multi Vitamin Daily (Multivitamin) 1 Each Tablet 1 Tab PO DAILY Simethicone 125 Mg Capsule 120 Mg PO TID Senna Lax (Sennosides) 8.6 Mg Tablet 8.6 Mg PO BID Potassium Chloride 10 Meq Tablet.er 10 Meq PO DAILYWBKFT Actos (Pioglitazone Hcl) 30 Mg Tablet 30 Mg PO DAILY Pepcid (Famotidine) 20 Mg Tablet 20 Mg PO BID Novolog Flexpen (Insulin Aspart) 100 Unit/1 Ml Insuln.pen 8 Units SQ DAILYBFRLUN Novolog Flexpen (Insulin Aspart) 100 Unit/1 Ml Insuln.pen 4 Units SQ DAILYWBKFT Novolog Flexpen (Insulin Aspart) 100 Unit/1 Ml Insuln.pen 10 Unit SQ DAILYBFRSUP Mapap (Acetaminophen) 500 Mg Tablet 500 Mg PO PRN Q6HRS PRN Magnesium Oxide 400 Mg Tablet 400 Mg PO DAILY Lisinopril 20 Mg Tablet 20 Mg PO DAILY Levemir Flextouch (Insulin Detemir) 100 Unit/1 Ml Insuln.pen 26 Units SQ DAILYWBKFT Levemir Flextouch (Insulin Detemir) 100 Unit/1 Ml Insuln.pen 16 Units SQ HS Lasix (Furosemide) 40 Mg Tablet 40 Mg PO DAILY Haloperidol 10 Mg Tablet 15 Mg PO BID Haloperidol Lactate 5 Mg/1 Ml Vial 5 Mg IM PRN Q4HRS PRN Gemfibrozil 600 Mg Tablet 600 Mg PO BID Gabapentin 300 Mg Capsule 300 Mg PO TID Flonase Allergy Relief (Fluticasone Propionate) 9.9 Ml [place].susp 2 Sprays NS PRN PRN Docusate Sodium 100 Mg Capsule 100 Mg PO DAILY Docusate Sodium 100 Mg Capsule 100 Mg PO PRN DAILY PRN Clonidine Hcl 0.1 Mg Tablet 0.1 Mg PO HS Cetirizine Hcl 10 Mg Tablet 10 Mg PO DAILY Aspirin Ec (Aspirin) 81 Mg Tablet.dr 81 Mg PO DAILYWBKFT Amlodipine Besylate 10 Mg Tablet 10 Mg PO DAILY Abilify (Aripiprazole) 15 Mg Tablet 10 Mg PO BID I have reviewed the current psychotropics carefully including drug interactions. Risk benefit ratio favors no change other than as noted in my dictated progress note. Diagnosis: Problems: (1) Anxiety disorder (2) Bipolar affective, mixed, sev w/ psych (3) Schizoaffective disorder, chronic condition with acute exacerbation (4) Schizophrenia, disorganized, subchronic with acute exacerbation JASS HUNG MD January 03, 2018 21:00
[2018-01-04 06:31] VITALS: BP 112/68
[2018-01-04] MEDS: INSULIN GLARGINE 300 UNITS/3 ML INSULN.PEN. SQ SCH ×2 (08:00→19:59)
[2018-01-04] MEDS: INSULIN LISPRO 300 UNITS/3 ML INSULN.PEN. SQ SCH ×3 (08:00→17:00)
[2018-01-04] MEDS: FUROSEMIDE 40 MG TABLET PO SCH (08:01)
[2018-01-04] MEDS: POLYETHYLENE GLYCOL 3350 17 GM PACKET. PO SCH (08:01)
[2018-01-04] MEDS: DOCUSATE SODIUM 100 MG CAPSULE PO SCH (08:02)
[2018-01-04] MEDS: LISINOPRIL 20 MG TABLET PO SCH (08:02)
[2018-01-04] MEDS: MULTIVITAMIN with MINERAL TABLET. PO SCH (08:02)
[2018-01-04] MEDS: FAMOTIDINE 20 MG TABLET PO SCH ×2 (08:02→19:43)
[2018-01-04] MEDS: LACTOBACILLUS RHAMNOSUS GG 1 CAPSULE. PO SCH ×2 (08:02→19:43)
[2018-01-04] MEDS: HALOPERIDOL 5 MG TABLET PO SCH ×3 (08:02→21:00)
[2018-01-04] MEDS: MAGNESIUM OXIDE 400 MG TABLET PO SCH (08:03)
[2018-01-04] MEDS: GEMFIBROZIL 600 MG TABLET. PO SCH ×2 (08:03→19:43)
[2018-01-04] MEDS: PIOGLITAZONE 15 MG TABLET. PO SCH (08:03)
[2018-01-04] MEDS: POTASSIUM CHLORIDE 10 MEQ TABLET.ER. PO SCH (08:03)
[2018-01-04] MEDS: GABAPENTIN 300 MG CAPSULE. PO SCH ×3 (08:03→19:43)
[2018-01-04] MEDS: SIMETHICONE 80 MG TAB.CHEW PO SCH ×3 (08:04→19:43)
[2018-01-04] MEDS: CETIRIZINE HCL 10 MG TABLET PO SCH (08:05)
[2018-01-04] MEDS: SENNOSIDES 8.6 MG TABLET PO SCH ×2 (08:05→19:43)
[2018-01-04] MEDS: amLODIPine BESYLATE 10 MG TABLET PO SCH (08:05)
[2018-01-04] MEDS: traZODone 50 MG TABLET. PO SCH ×3 (08:07→17:00)
[2018-01-04 10:05] LABS: BASO % 1 % (0-3); EOS # 0.3 x10^3/uL (0.0-0.7); EOS % 8 % (0-3); HEMATOCRIT 35.4 % (36.0-47.0); HEMOGLOBIN 11.1 g/dL (12.0-15.5); LYMPH # 1.6 x10^3/uL (1.0-4.8); LYMPH % 36 % (24-48); MEAN CORPUSCULAR HEMOGLOBIN 27 pg (25-35); MEAN CORPUSCULAR HGB CONC 31 g/dL (31-37); MEAN CORPUSCULAR VOLUME 86 fL (79-100); MONO # 0.3 x10^3/uL (0.0-1.1); MONO % 7 % (0-9); NEUT # 2.2 x10^3uL (1.8-7.7); NEUT % 49 % (31-73); PLATELET COUNT 264 x10^3/uL (140-400); RED BLOOD COUNT 4.12 x10^6/uL (3.50-5.40); RED CELL DISTRIBUTION WIDTH 16.9 % (11.5-14.5); WHITE BLOOD COUNT 4.5 x10^3/uL (4.0-11.0)
[2018-01-04 10:11] LABS: ALBUMIN/GLOBULIN RATIO 0.8 (1.0-1.7); CALCIUM 8.7 mg/dL (8.5-10.1); CREATININE 2.1 mg/dL (0.6-1.0); GFR 30.2; POTASSIUM 4.4 mmol/L (3.5-5.1); TOTAL BILIRUBIN 0.2 mg/dL (0.2-1.0); TOTAL PROTEIN 6.9 g/dL (6.4-8.2)
[2018-01-04 16:03] VITALS: BP 132/66
[2018-01-04] MEDS: cloZAPine 100 MG TABLET PO SCH (19:44)
[2018-01-04] MEDS: cloZAPine 25 MG TABLET PO SCH ×2 (19:44→21:00)
[2018-01-04] MEDS: DIVALPROEX ER 250 MG TAB.ER.24H. PO SCH (19:44)
[2018-01-04] MEDS: cloNIDine HCL 0.1 MG TABLET PO SCH (19:44)
[2018-01-04] MEDS: DIVALPROEX ER 500 MG TAB.ER.24H PO SCH (19:45)
--- NOTE | 2018-01-04 20:42 | PDOC ---
Exam Note: Tay Note: Please also refer to the separate dictated note~for this date of service dictated separately.~Patient seen individually. Discussed the patient with Nursing staff reviewed the chart.~Reviewed interim history and current functioning. Reviewed vital signs,~Labs/ Radiology~and current medications noted below. Continue current treatment with the changes noted in the dictated addendum note Assessment: Vital Signs: Vital Signs Date Time Temp Pulse Resp B/P (MAP) Pulse Ox O2 Delivery O2 Flow Rate FiO2 01/04/18 19:44 95 132/66 01/04/18 16:03 97.1 18 92 01/01/18 16:23 Room Air I&O Intake and Output 01/04/18 07:00 Intake Total 960 ml Balance 960 ml Intake Oral 960 ml # Voids 1 Labs: Laboratory Tests Test 01/04/18 07:28 01/04/18 09:34 01/04/18 11:31 01/04/18 16:59 Glucose (Fingerstick) 185 mg/dL (70-99) H 169 mg/dL (70-99) H 157 mg/dL (70-99) H White Blood Count 4.5 x10^3/uL (4.0-11.0) Red Blood Count 4.12 x10^6/uL (3.50-5.40) Hemoglobin 11.1 g/dL (12.0-15.5) L Hematocrit 35.4 % (36.0-47.0) L Mean Corpuscular Volume 86 fL (79-100) Mean Corpuscular Hemoglobin 27 pg (25-35) Mean Corpuscular Hemoglobin Concent 31 g/dL (31-37) Red Cell Distribution Width 16.9 % (11.5-14.5) H Platelet Count 264 x10^3/uL (140-400) Neutrophils (%) (Auto) 49 % (31-73) Lymphocytes (%) (Auto) 36 % (24-48) Monocytes (%) (Auto) 7 % (0-9) Eosinophils (%) (Auto) 8 % (0-3) H Basophils (%) (Auto) 1 % (0-3) Neutrophils # (Auto) 2.2 x10^3uL (1.8-7.7) Lymphocytes # (Auto) 1.6 x10^3/uL (1.0-4.8) Monocytes # (Auto) 0.3 x10^3/uL (0.0-1.1) Eosinophils # (Auto) 0.3 x10^3/uL (0.0-0.7) Basophils # (Auto) 0.0 x10^3/uL (0.0-0.2) Sodium Level 145 mmol/L (136-145) Potassium Level 4.4 mmol/L (3.5-5.1) Chloride Level 105 mmol/L (98-107) Carbon Dioxide Level 35 mmol/L (21-32) H Anion Gap 5 (6-14) L Blood Urea Nitrogen 28 mg/dL (7-20) H Creatinine 2.1 mg/dL (0.6-1.0) H Estimated GFR (Cockcroft-Gault) 30.2 BUN/Creatinine Ratio 13 (6-20) Glucose Level 200 mg/dL (70-99) H Calcium Level 8.7 mg/dL (8.5-10.1) Total Bilirubin 0.2 mg/dL (0.2-1.0) Aspartate Amino Transferase (AST) 13 U/L (15-37) L Alanine Aminotransferase (ALT) 20 U/L (14-59) Alkaline Phosphatase 172 U/L (46-116) H Total Protein 6.9 g/dL (6.4-8.2) Albumin 3.0 g/dL (3.4-5.0) L Albumin/Globulin Ratio 0.8 (1.0-1.7) L Test 01/04/18 19:27 Glucose (Fingerstick) 183 mg/dL (70-99) H Current Medications: Meds: Current Medications Acetaminophen (Tylenol) 650 mg PRN Q6HRS PRN PO PAIN / TEMP; Start 12/20/17 at 23:30; Status Cancel Multi-Ingredient Ointment (Analgesic [place]) 1 caridad PRN QID PRN TP MUSCLE PAIN; Start 12/20/17 at 23:30 Al Hydroxide/Mg Hydroxide (Mylanta Plus Xs) 15 ml PRN AFTMEALHC PRN PO DYSPEPSIA; Start 12/20/17 at 23:30 Magnesium Hydroxide (Milk Of Magnesia) 2,400 mg PRN QHS PRN PO CONSTIPATION; Start 12/20/17 at 23:30 Olanzapine (ZyPREXA ZYDIS) 5 mg PRN Q2HR PRN PO PSYCHOSIS; Start 12/21/17 at 01 :00 Aripiprazole (Abilify) 10 mg BID PO Last administered on 12/26/17at 08:44; Start 12/21/17 at 09:00; Stop 12/26/17 at 19:47; Status DC Clozapine (Clozaril) 75 mg QHS PO Last administered on 12/21/17at 20:40; Start 12/21/17 at 21:00; Stop 12/22/17 at 19:20; Status DC Divalproex Sodium (Depakote Er) 1,500 mg QHS PO Last administered on 12/24/17at 20:23; Start 12/21/17 at 21:00; Stop 12/25/17 at 19:22; Status DC Fluvoxamine Maleate (Luvox) 50 mg QHS PO Last administered on 01/04/18 19:43; Start 12/21/17 at 21:00 Haloperidol (Haldol) 15 mg BID PO Last administered on 01/04/18 19:47; Start 12/21/17 at 09:00; Stop 01/04/18 at 19:51; Status DC Haloperidol Lactate (Haldol) 5 mg PRN Q4HRS PRN IM AGITATION; Start 12/21/17 at 01:00; Stop 12/21/17 at 01:43; Status DC Clonidine HCl (Catapres) 0.1 mg HS PO Last administered on 01/04/18at 19:44; Start 12/21/17 at 21:00 Gabapentin (Neurontin) 300 mg TID PO Last administered on 01/04/18 19:43; Start 12/21/17 at 10:00 Insulin Human Lispro (HumaLOG) 4 units DAILYWBKFT SQ Last administered on 08:00; Start 12/22/17 at 08:00 Insulin Human Lispro (HumaLOG) 8 units DAILYBFRLUN SQ Last administered on 01/04at 11:30; Start 12/21/17 at 11:30 Insulin Human Lispro (HumaLOG) 10 units DAILYBFRSUP SQ Last administered on 17:00; Start 12/21/17 at 17:00 Albuterol/ Ipratropium (Duoneb) 3 ml RTQID NEB Last administered on 01/01/18 04:10; Start 12/21/17 at 12:00; Stop 01/01/18 at 04:40; Status DC Lactobacillus Rhamnosus (Culturelle) 1 cap BID PO Last administered on 19:43; Start 12/21/17 at 10:00 Lisinopril (Prinivil) 20 mg DAILY PO Last administered on 01/04/18 08:02; Start 12/21/17 at 10:00 Acetaminophen (Tylenol) 500 mg PRN Q6HRS PRN PO PAIN; Start 12/21/17 at 09:30 Amlodipine Besylate (Norvasc) 10 mg DAILY PO Last administered on 01/04/18 08: 05; Start 12/21/17 at 10:00 Cetirizine HCl (ZyrTEC) 10 mg DAILY PO Last administered on 01/04/18 08:05; Start 12/21/17 at 10:00 Docusate Sodium (Colace) 100 mg DAILY PO Last administered on 01/04/18 08:02; Start 12/21/17 at 10:00 Docusate Sodium (Colace) 100 mg PRN DAILY PRN PO CONSTIPATION; Start 12/21/17 at 10:00 Famotidine (Pepcid) 20 mg BID PO Last administered on 01/04/18 19:43; Start at 10:00 Fluticasone Propionate (Flonase) 2 spray PRN DAILY PRN NS ALLERGIES; Start at 09:30 Furosemide (Lasix) 40 mg DAILY PO Last administered on 01/04/18at 08:01; Start 12/21/17 at 10:00 Gemfibrozil (Lopid) 600 mg BID PO Last administered on 01/04/18 19:43; Start 12/21/17 at 10:00 Insulin Glargine (Lantus) 16 units HS SQ Last administered on 01/04/18 19:59; Start 12/21/17 at 21:00 Insulin Glargine (Lantus) 26 units DAILYWBKFT SQ Last administered on at 08:00; Start 12/22/17 at 08:00 Magnesium Oxide (Magnesium Oxide) 400 mg DAILY PO Last administered on 08:03; Start 12/21/17 at 10:00 Multivitamins/ Calcium (Thera-M Plus) 1 tab DAILY PO Last administered on 08:02; Start 12/21/17 at 10:00 Pioglitazone HCl (Actos) 30 mg DAILY PO Last administered on 01/04/18 08:03; Start 12/21/17 at 10:00 Polyethylene Glycol (miraLAX) 1 gm DAILY PO Last administered on 12/21/17 10: 12; Start 12/21/17 at 10:00; Stop 12/22/17 at 09:12; Status DC Potassium Chloride (Klor-Con) 10 meq DAILYWBKFT PO Last administered on 08:03; Start 12/22/17 at 10:00 Sennosides (Senna) 8.6 mg BID PO Last administered on 01/04/18 19:43; Start at 10:00 Simethicone (Gas-X) 120 mg TID PO Last administered on 01/04/18 19:43; Start 12/21/17 at 10:00 Trazodone HCl (Desyrel) 12.5 mg TID@0900,1300,1700 PO Last administered on 01/04 17:00; Start 12/21/17 at 10:00 Artificial Tears (Artificial Tears) 1 drop PRN Q15MIN PRN OU DRY EYE Last administered on 12/22/17 15:57; Start 12/21/17 at 16:00 Polyethylene Glycol (miraLAX) 17 gm DAILY PO Last administered on 01/04/18 08: 01; Start 12/23/17 at 09:00 Clozapine (Clozaril) 100 mg QHS PO Last administered on 12/27/17 20:22; Start 12/22/17 at 21:00; Stop 12/28/17 at 16:39; Status DC Divalproex Sodium (Depakote Er) 1,750 mg QHS PO ; Start 12/25/17 at 21:00; Stop 12/25/17 at 21:00; Status DC Divalproex Sodium (Depakote Er) 1,500 mg QHS PO Last administered on 5/28/18at 19:45; Start 12/25/17 at 21:00 Divalproex Sodium (Depakote Er) 250 mg QHS PO Last administered on 01/04/18at 19 :44; Start 12/25/17 at 21:00 Clozapine (Clozaril) 125 mg QHS PO ; Start 12/28/17 at 21:00; Status UNV Clozapine (Clozaril) 25 mg QHS PO Last administered on 01/04/18at 19:44; Start 12/28/17 at 21:00; Stop 01/04/18 at 19:51; Status DC Clozapine (Clozaril) 100 mg QHS PO Last administered on 01/04/18at 19:44; Start 12/28/17 at 21:00 Albuterol Sulfate (Ventolin) 2.5 mg PRN QID PRN NEB SHORTNESS OF BREATH; Start 01/01/18 at 04:45 Clozapine (Clozaril) 50 mg QHS PO ; Start 01/04/18 at 21:00 Haloperidol (Haldol) 15 mg HS PO ; Start 01/04/18 at 21:00 Haloperidol (Haldol) 10 mg DAILY PO ; Start 01/05/18 at 09:00 Active Scripts Active Reported Duoneb 0.5-3(2.5) Mg/3 Ml (Albuterol/Ipratropium) 3 Ml Ampul.neb 3 Ml NEB RTQID Trazodone Hcl 50 Mg Tablet 12.5 Mg PO TID@0900,1300,1700 Fluvoxamine Maleate 50 Mg Tablet 50 Mg PO QHS Clozaril (Clozapine) 25 Mg Tablet 75 Mg PO QHS Miralax (Polyethylene Glycol 3350) 17 Gm Powd.pack 1 Packet PO DAILY Zyprexa Zydis (Olanzapine) 5 Mg Tab.rapdis 5 Mg PO PRN Q2HR PRN Depakote Er (Divalproex Sodium) 500 Mg Tab.er.24h 1,500 Tab PO QHS Culturelle (Lactobacillus Rhamnosus Gg) 1 Each Cap.sprink 1 Each PO BID Multi Vitamin Daily (Multivitamin) 1 Each Tablet 1 Tab PO DAILY Simethicone 125 Mg Capsule 120 Mg PO TID Senna Lax (Sennosides) 8.6 Mg Tablet 8.6 Mg PO BID Potassium Chloride 10 Meq Tablet.er 10 Meq PO DAILYWBKFT Actos (Pioglitazone Hcl) 30 Mg Tablet 30 Mg PO DAILY Pepcid (Famotidine) 20 Mg Tablet 20 Mg PO BID Novolog Flexpen (Insulin Aspart) 100 Unit/1 Ml Insuln.pen 8 Units SQ DAILYBFRLUN Novolog Flexpen (Insulin Aspart) 100 Unit/1 Ml Insuln.pen 4 Units SQ DAILYWBKFT Novolog Flexpen (Insulin Aspart) 100 Unit/1 Ml Insuln.pen 10 Unit SQ DAILYBFRSUP Mapap (Acetaminophen) 500 Mg Tablet 500 Mg PO PRN Q6HRS PRN Magnesium Oxide 400 Mg Tablet 400 Mg PO DAILY Lisinopril 20 Mg Tablet 20 Mg PO DAILY Levemir Flextouch (Insulin Detemir) 100 Unit/1 Ml Insuln.pen 26 Units SQ DAILYWBKFT Levemir Flextouch (Insulin Detemir) 100 Unit/1 Ml Insuln.pen 16 Units SQ HS Lasix (Furosemide) 40 Mg Tablet 40 Mg PO DAILY Haloperidol 10 Mg Tablet 15 Mg PO BID Haloperidol Lactate 5 Mg/1 Ml Vial 5 Mg IM PRN Q4HRS PRN Gemfibrozil 600 Mg Tablet 600 Mg PO BID Gabapentin 300 Mg Capsule 300 Mg PO TID Flonase Allergy Relief (Fluticasone Propionate) 9.9 Ml [place].susp 2 Sprays NS PRN PRN Docusate Sodium 100 Mg Capsule 100 Mg PO DAILY Docusate Sodium 100 Mg Capsule 100 Mg PO PRN DAILY PRN Clonidine Hcl 0.1 Mg Tablet 0.1 Mg PO HS Cetirizine Hcl 10 Mg Tablet 10 Mg PO DAILY Aspirin Ec (Aspirin) 81 Mg Tablet.dr 81 Mg PO DAILYWBKFT Amlodipine Besylate 10 Mg Tablet 10 Mg PO DAILY Abilify (Aripiprazole) 15 Mg Tablet 10 Mg PO BID I have reviewed the current psychotropics carefully including drug interactions. Risk benefit ratio favors no change other than as noted in my dictated progress note. Diagnosis: Problems: (1) Anxiety disorder (2) Bipolar affective, mixed, sev w/ psych (3) Schizoaffective disorder, chronic condition with acute exacerbation (4) Schizophrenia, disorganized, subchronic with acute exacerbation JASS HUNG MD January 04, 2018 20:42
--- NOTE | 2018-01-04 22:23 | PN ---
DATE: 01/02/2018 PSYCHIATRIC PROGRESS NOTE This is a late entry for 01/02/2018, covers the elements not covered in my initial note. SUBJECTIVE: The patient slept 5-3/4 hours, has had a better day. She has been on telephone to various people and handled this reasonably well. REVIEW OF SYSTEMS: No CV, , pulmonary, eye system symptoms on review. Reliability varies. MENTAL STATUS EXAM: Oriented to herself and situation. Speech coherent, abstraction fair, computation impaired, language function intact. Mood and affect somewhat withdrawn. IMPRESSION: Unchanged from initial note. PLAN: Per initial note. MAN Prosper HUNG MD DR: KATIANA/alicia JOB#: [id number] / [id number]
--- NOTE | 2018-01-04 22:26 | PN ---
DATE: 01/01/2018 PSYCHIATRIC PROGRESS NOTE This is a late entry 01/01/2018, covers elements not covered in my initial note. SUBJECTIVE: The patient slept 10 hours. 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 CT head showed no acute changes, but there was hyperostosis. Labs in the morning were unremarkable. UA has reflex to culture. She does have chronic kidney disease, was incontinent in the morning. REVIEW OF SYSTEMS: No CV, , pulmonary, eye, ENT system symptoms on review. Reliability varies. MENTAL STATUS EXAM: Oriented to herself and situation. Speech coherent, abstraction fair, computation impaired. She is quiet, obsessive, ruminative. No suicidal or homicidal ideation. LABORATORY DATA: Reviewed. IMPRESSION: Unchanged from initial note. PLAN: Continue current psychotropics. Follow labs and the Clozaril may need to increase this and then reduce the Haldol. MAN Prosper HUNG MD DR: KATIANA/alicia JOB#: [id number] / [id number]
[2018-01-05] MEDS: POLYETHYLENE GLYCOL 3350 17 GM PACKET. PO SCH (08:59)
[2018-01-05] MEDS: MULTIVITAMIN with MINERAL TABLET. PO SCH (08:59)
[2018-01-05] MEDS: PIOGLITAZONE 15 MG TABLET. PO SCH (09:00)
[2018-01-05] MEDS: LISINOPRIL 20 MG TABLET PO SCH (09:00)
[2018-01-05] MEDS: MAGNESIUM OXIDE 400 MG TABLET PO SCH (09:00)
[2018-01-05] MEDS: amLODIPine BESYLATE 10 MG TABLET PO SCH (09:00)
[2018-01-05] MEDS: POTASSIUM CHLORIDE 10 MEQ TABLET.ER. PO SCH (09:01)
[2018-01-05] MEDS: FUROSEMIDE 40 MG TABLET PO SCH (09:01)
[2018-01-05] MEDS: LACTOBACILLUS RHAMNOSUS GG 1 CAPSULE. PO SCH ×2 (09:01→19:10)
[2018-01-05] MEDS: SENNOSIDES 8.6 MG TABLET PO SCH ×2 (09:01→19:10)
[2018-01-05] MEDS: CETIRIZINE HCL 10 MG TABLET PO SCH (09:01)
[2018-01-05] MEDS: GEMFIBROZIL 600 MG TABLET. PO SCH ×2 (09:01→19:09)
[2018-01-05] MEDS: GABAPENTIN 300 MG CAPSULE. PO SCH ×3 (09:01→19:09)
[2018-01-05] MEDS: traZODone 50 MG TABLET. PO SCH ×3 (09:02→16:50)
[2018-01-05] MEDS: SIMETHICONE 80 MG TAB.CHEW PO SCH ×3 (09:02→19:08)
[2018-01-05] MEDS: DOCUSATE SODIUM 100 MG CAPSULE PO SCH (09:02)
[2018-01-05] MEDS: FAMOTIDINE 20 MG TABLET PO SCH ×2 (09:02→19:08)
[2018-01-05] MEDS: INSULIN GLARGINE 300 UNITS/3 ML INSULN.PEN. SQ SCH ×2 (09:05→20:53)
[2018-01-05] MEDS: INSULIN LISPRO 300 UNITS/3 ML INSULN.PEN. SQ SCH ×3 (09:07→16:50)
[2018-01-05] MEDS: HALOPERIDOL 5 MG TABLET PO SCH ×2 (09:09→19:12)
[2018-01-05 16:17] VITALS: BP 154/63
[2018-01-05] MEDS: cloNIDine HCL 0.1 MG TABLET PO SCH (19:08)
[2018-01-05] MEDS: DIVALPROEX ER 250 MG TAB.ER.24H. PO SCH (19:08)
[2018-01-05] MEDS: DIVALPROEX ER 500 MG TAB.ER.24H PO SCH (19:09)
[2018-01-05] MEDS: cloZAPine 100 MG TABLET PO SCH (19:10)
[2018-01-05] MEDS: cloZAPine 25 MG TABLET PO SCH (19:11)
--- NOTE | 2018-01-05 20:47 | PDOC ---
Exam Note: Tay Note: Please also refer to the separate dictated note~for this date of service dictated separately.~Patient seen individually. Discussed the patient with Nursing staff reviewed the chart.~Reviewed interim history and current functioning. Reviewed vital signs,~Labs/ Radiology~and current medications noted below. Continue current treatment with the changes noted in the dictated addendum note Assessment: Vital Signs: Vital Signs Date Time Temp Pulse Resp B/P (MAP) Pulse Ox O2 Delivery O2 Flow Rate FiO2 01/05/18 19:08 94 154/63 01/05/18 16:17 97.2 16 96 01/01/18 16:23 Room Air I&O Intake and Output 01/05/18 07:00 Intake Total 1320 ml Balance 1320 ml Intake Oral 1320 ml Labs: Laboratory Tests Test 01/05/18 07:07 01/05/18 07:34 01/05/18 08:37 01/05/18 11:27 Glucose (Fingerstick) 56 mg/dL (70-99) L 59 mg/dL (70-99) L 127 mg/dL (70-99) H 245 mg/dL (70-99) H Test 01/05/18 16:29 01/05/18 19:28 Glucose (Fingerstick) 196 mg/dL (70-99) H 103 mg/dL (70-99) H Current Medications: Meds: Current Medications Acetaminophen (Tylenol) 650 mg PRN Q6HRS PRN PO PAIN / TEMP; Start 12/20/17 at 23:30; Status Cancel Multi-Ingredient Ointment (Analgesic [place]) 1 caridad PRN QID PRN TP MUSCLE PAIN; Start 12/20/17 at 23:30 Al Hydroxide/Mg Hydroxide (Mylanta Plus Xs) 15 ml PRN AFTMEALHC PRN PO DYSPEPSIA; Start 12/20/17 at 23:30 Magnesium Hydroxide (Milk Of Magnesia) 2,400 mg PRN QHS PRN PO CONSTIPATION; Start 12/20/17 at 23:30 Olanzapine (ZyPREXA ZYDIS) 5 mg PRN Q2HR PRN PO PSYCHOSIS; Start 12/21/17 at 01 :00 Aripiprazole (Abilify) 10 mg BID PO Last administered on 12/26/17at 08:44; Start 12/21/17 at 09:00; Stop 12/26/17 at 19:47; Status DC Clozapine (Clozaril) 75 mg QHS PO Last administered on 12/21/17at 20:40; Start 12/21/17 at 21:00; Stop 12/22/17 at 19:20; Status DC Divalproex Sodium (Depakote Er) 1,500 mg QHS PO Last administered on 12/24/17at 20:23; Start 12/21/17 at 21:00; Stop 12/25/17 at 19:22; Status DC Fluvoxamine Maleate (Luvox) 50 mg QHS PO Last administered on 01/05/18 19:11; Start 12/21/17 at 21:00 Haloperidol (Haldol) 15 mg BID PO Last administered on 01/04/18at 19:47; Start 12/21/17 at 09:00; Stop 01/04/18 at 19:51; Status DC Haloperidol Lactate (Haldol) 5 mg PRN Q4HRS PRN IM AGITATION; Start 12/21/17 at 01:00; Stop 12/21/17 at 01:43; Status DC Clonidine HCl (Catapres) 0.1 mg HS PO Last administered on 01/05/18at 19:08; Start 12/21/17 at 21:00 Gabapentin (Neurontin) 300 mg TID PO Last administered on 01/05/18 19:09; Start 12/21/17 at 10:00 Insulin Human Lispro (HumaLOG) 4 units DAILYWBKFT SQ Last administered on 09:07; Start 12/22/17 at 08:00 Insulin Human Lispro (HumaLOG) 8 units DAILYBFRLUN SQ Last administered on 01/05 11:53; Start 12/21/17 at 11:30 Insulin Human Lispro (HumaLOG) 10 units DAILYBFRSUP SQ Last administered on 16:50; Start 12/21/17 at 17:00 Albuterol/ Ipratropium (Duoneb) 3 ml RTQID NEB Last administered on 01/01/18 04:10; Start 12/21/17 at 12:00; Stop 01/01/18 at 04:40; Status DC Lactobacillus Rhamnosus (Culturelle) 1 cap BID PO Last administered on 19:10; Start 12/21/17 at 10:00 Lisinopril (Prinivil) 20 mg DAILY PO Last administered on 01/05/18 09:00; Start 12/21/17 at 10:00 Acetaminophen (Tylenol) 500 mg PRN Q6HRS PRN PO PAIN; Start 12/21/17 at 09:30 Amlodipine Besylate (Norvasc) 10 mg DAILY PO Last administered on 01/05/18 09: 00; Start 12/21/17 at 10:00 Cetirizine HCl (ZyrTEC) 10 mg DAILY PO Last administered on 01/05/18 09:01; Start 12/21/17 at 10:00 Docusate Sodium (Colace) 100 mg DAILY PO Last administered on 01/05/18 09:02; Start 12/21/17 at 10:00 Docusate Sodium (Colace) 100 mg PRN DAILY PRN PO CONSTIPATION; Start 12/21/17 at 10:00 Famotidine (Pepcid) 20 mg BID PO Last administered on 01/05/18 19:08; Start at 10:00 Fluticasone Propionate (Flonase) 2 spray PRN DAILY PRN NS ALLERGIES; Start at 09:30 Furosemide (Lasix) 40 mg DAILY PO Last administered on 01/05/18 09:01; Start 12/21/17 at 10:00 Gemfibrozil (Lopid) 600 mg BID PO Last administered on 01/05/18 19:09; Start 12/21/17 at 10:00 Insulin Glargine (Lantus) 16 units HS SQ Last administered on 01/04/18 19:59; Start 12/21/17 at 21:00 Insulin Glargine (Lantus) 26 units DAILYWBKFT SQ Last administered on 09:05; Start 12/22/17 at 08:00 Magnesium Oxide (Magnesium Oxide) 400 mg DAILY PO Last administered on 09:00; Start 12/21/17 at 10:00 Multivitamins/ Calcium (Thera-M Plus) 1 tab DAILY PO Last administered on 08:59; Start 12/21/17 at 10:00 Pioglitazone HCl (Actos) 30 mg DAILY PO Last administered on 01/05/18 09:00; Start 12/21/17 at 10:00 Polyethylene Glycol (miraLAX) 1 gm DAILY PO Last administered on 12/21/17 10: 12; Start 12/21/17 at 10:00; Stop 12/22/17 at 09:12; Status DC Potassium Chloride (Klor-Con) 10 meq DAILYWBKFT PO Last administered on 09:01; Start 12/22/17 at 10:00 Sennosides (Senna) 8.6 mg BID PO Last administered on 01/05/18 19:10; Start at 10:00 Simethicone (Gas-X) 120 mg TID PO Last administered on 01/05/18 19:08; Start 12/21/17 at 10:00 Trazodone HCl (Desyrel) 12.5 mg TID@0900,1300,1700 PO Last administered on 01/05 16:50; Start 12/21/17 at 10:00 Artificial Tears (Artificial Tears) 1 drop PRN Q15MIN PRN OU DRY EYE Last administered on 12/22/17 15:57; Start 12/21/17 at 16:00 Polyethylene Glycol (miraLAX) 17 gm DAILY PO Last administered on 01/05/18 08: 59; Start 12/23/17 at 09:00 Clozapine (Clozaril) 100 mg QHS PO Last administered on 12/27/17 20:22; Start 12/22/17 at 21:00; Stop 12/28/17 at 16:39; Status DC Divalproex Sodium (Depakote Er) 1,750 mg QHS PO ; Start 12/25/17 at 21:00; Stop 12/25/17 at 21:00; Status DC Divalproex Sodium (Depakote Er) 1,500 mg QHS PO Last administered on 01/05/18 19:09; Start 12/25/17 at 21:00 Divalproex Sodium (Depakote Er) 250 mg QHS PO Last administered on 01/05/18 19 :08; Start 12/25/17 at 21:00 Clozapine (Clozaril) 125 mg QHS PO ; Start 12/28/17 at 21:00; Status UNV Clozapine (Clozaril) 25 mg QHS PO Last administered on 01/04/18at 19:44; Start 12/28/17 at 21:00; Stop 01/04/18 at 19:51; Status DC Clozapine (Clozaril) 100 mg QHS PO Last administered on 01/05/18at 19:10; Start 12/28/17 at 21:00 Albuterol Sulfate (Ventolin) 2.5 mg PRN QID PRN NEB SHORTNESS OF BREATH; Start 01/01/18 at 04:45 Clozapine (Clozaril) 50 mg QHS PO Last administered on 01/05/18at 19:11; Start 01/04/18 at 21:00 Haloperidol (Haldol) 15 mg HS PO Last administered on 01/05/18at 19:12; Start at 21:00 Haloperidol (Haldol) 10 mg DAILY PO Last administered on 01/05/18at 09:09; Start 01/05/18 at 09:00 Active Scripts Active Reported Duoneb 0.5-3(2.5) Mg/3 Ml (Albuterol/Ipratropium) 3 Ml Ampul.neb 3 Ml NEB RTQID Trazodone Hcl 50 Mg Tablet 12.5 Mg PO TID@0900,1300,1700 Fluvoxamine Maleate 50 Mg Tablet 50 Mg PO QHS Clozaril (Clozapine) 25 Mg Tablet 75 Mg PO QHS Miralax (Polyethylene Glycol 3350) 17 Gm Powd.pack 1 Packet PO DAILY Zyprexa Zydis (Olanzapine) 5 Mg Tab.rapdis 5 Mg PO PRN Q2HR PRN Depakote Er (Divalproex Sodium) 500 Mg Tab.er.24h 1,500 Tab PO QHS Culturelle (Lactobacillus Rhamnosus Gg) 1 Each Cap.sprink 1 Each PO BID Multi Vitamin Daily (Multivitamin) 1 Each Tablet 1 Tab PO DAILY Simethicone 125 Mg Capsule 120 Mg PO TID Senna Lax (Sennosides) 8.6 Mg Tablet 8.6 Mg PO BID Potassium Chloride 10 Meq Tablet.er 10 Meq PO DAILYWBKFT Actos (Pioglitazone Hcl) 30 Mg Tablet 30 Mg PO DAILY Pepcid (Famotidine) 20 Mg Tablet 20 Mg PO BID Novolog Flexpen (Insulin Aspart) 100 Unit/1 Ml Insuln.pen 8 Units SQ DAILYBFRLUN Novolog Flexpen (Insulin Aspart) 100 Unit/1 Ml Insuln.pen 4 Units SQ DAILYWBKFT Novolog Flexpen (Insulin Aspart) 100 Unit/1 Ml Insuln.pen 10 Unit SQ DAILYBFRSUP Mapap (Acetaminophen) 500 Mg Tablet 500 Mg PO PRN Q6HRS PRN Magnesium Oxide 400 Mg Tablet 400 Mg PO DAILY Lisinopril 20 Mg Tablet 20 Mg PO DAILY Levemir Flextouch (Insulin Detemir) 100 Unit/1 Ml Insuln.pen 26 Units SQ DAILYWBKFT Levemir Flextouch (Insulin Detemir) 100 Unit/1 Ml Insuln.pen 16 Units SQ HS Lasix (Furosemide) 40 Mg Tablet 40 Mg PO DAILY Haloperidol 10 Mg Tablet 15 Mg PO BID Haloperidol Lactate 5 Mg/1 Ml Vial 5 Mg IM PRN Q4HRS PRN Gemfibrozil 600 Mg Tablet 600 Mg PO BID Gabapentin 300 Mg Capsule 300 Mg PO TID Flonase Allergy Relief (Fluticasone Propionate) 9.9 Ml [place].susp 2 Sprays NS PRN PRN Docusate Sodium 100 Mg Capsule 100 Mg PO DAILY Docusate Sodium 100 Mg Capsule 100 Mg PO PRN DAILY PRN Clonidine Hcl 0.1 Mg Tablet 0.1 Mg PO HS Cetirizine Hcl 10 Mg Tablet 10 Mg PO DAILY Aspirin Ec (Aspirin) 81 Mg Tablet.dr 81 Mg PO DAILYWBKFT Amlodipine Besylate 10 Mg Tablet 10 Mg PO DAILY Abilify (Aripiprazole) 15 Mg Tablet 10 Mg PO BID I have reviewed the current psychotropics carefully including drug interactions. Risk benefit ratio favors no change other than as noted in my dictated progress note. Diagnosis: Problems: (1) Anxiety disorder (2) Bipolar affective, mixed, sev w/ psych (3) Schizoaffective disorder, chronic condition with acute exacerbation (4) Schizophrenia, disorganized, subchronic with acute exacerbation JASS HUNG MD January 05, 2018 20:47
[2018-01-06 06:04] VITALS: BP 113/50
[2018-01-06] MEDS: POLYETHYLENE GLYCOL 3350 17 GM PACKET. PO SCH (07:46)
[2018-01-06] MEDS: LACTOBACILLUS RHAMNOSUS GG 1 CAPSULE. PO SCH ×2 (07:46→20:03)
[2018-01-06] MEDS: POTASSIUM CHLORIDE 10 MEQ TABLET.ER. PO SCH (07:47)
[2018-01-06] MEDS: traZODone 50 MG TABLET. PO SCH ×3 (07:47→16:47)
[2018-01-06] MEDS: MULTIVITAMIN with MINERAL TABLET. PO SCH (07:47)
[2018-01-06] MEDS: HALOPERIDOL 5 MG TABLET PO SCH ×2 (07:48→20:05)
[2018-01-06] MEDS: SIMETHICONE 80 MG TAB.CHEW PO SCH ×3 (07:48→20:05)
[2018-01-06] MEDS: MAGNESIUM OXIDE 400 MG TABLET PO SCH (07:49)
[2018-01-06] MEDS: CETIRIZINE HCL 10 MG TABLET PO SCH (07:49)
[2018-01-06] MEDS: GABAPENTIN 300 MG CAPSULE. PO SCH ×3 (07:49→20:04)
[2018-01-06] MEDS: SENNOSIDES 8.6 MG TABLET PO SCH ×2 (07:49→20:04)
[2018-01-06] MEDS: FUROSEMIDE 40 MG TABLET PO SCH (07:49)
[2018-01-06] MEDS: FAMOTIDINE 20 MG TABLET PO SCH ×2 (07:49→20:04)
[2018-01-06] MEDS: PIOGLITAZONE 15 MG TABLET. PO SCH (07:49)
[2018-01-06] MEDS: GEMFIBROZIL 600 MG TABLET. PO SCH ×2 (07:49→20:05)
[2018-01-06] MEDS: DOCUSATE SODIUM 100 MG CAPSULE PO SCH (07:49)
[2018-01-06] MEDS: INSULIN LISPRO 300 UNITS/3 ML INSULN.PEN. SQ SCH ×3 (07:55→18:15)
[2018-01-06] MEDS: INSULIN GLARGINE 300 UNITS/3 ML INSULN.PEN. SQ SCH ×2 (09:37→20:09)
[2018-01-06] MEDS: LISINOPRIL 20 MG TABLET PO SCH (11:19)
[2018-01-06] MEDS: amLODIPine BESYLATE 10 MG TABLET PO SCH (11:19)
--- NOTE | 2018-01-06 12:11 | PN ---
DATE: 01/04/2018 PSYCHIATRIC PROGRESS NOTE This is a late entry 01/04/2018 covers elements not covered in my initial note 01/04/2018. SUBJECTIVE: The patient slept 7-3/4 hours previous evening. I met with her evening of 01/04/2018. Overall, the patient's absolute neutrophil count unremarkable at 2205. She has had some jerking arm movements in the morning, this is typical for her, somewhat delusional, more so in the evening. She has vague somatic symptoms. REVIEW OF SYSTEMS: No CV, , pulmonary, eye system symptoms on review. MENTAL STATUS EXAM: Oriented to herself and situation. Speech coherent, somewhat pressured, less so than before. Abstraction fair, computation impaired, language function intact. Overall, less psychotic. No suicidal or homicidal ideation. LABORATORY DATA: Reviewed. IMPRESSION: Schizoaffective disorder, bipolar type, mixed with psychotic features, in partial remission. PLAN: Increase Clozaril 250 mg at bedtime, reduce Haldol from 15 mg b.i.d. to 10 mg in the morning, 15 in the evening. Continue rest unchanged. Depakote ER at 1750 at bedtime, Luvox 50 mg at bedtime, valproic acid level therapeutic at 61. MAN Prosper HUNG MD DR: KATIANA/alicia JOB#: [id number] / [id number]
--- NOTE | 2018-01-06 12:36 | PN ---
DATE: 01/03/2018 This late entry, 01/03/2018, covers elements not covered in my initial note. SUBJECTIVE: I met with the patient in the evening. Overall, the patient has had a good and a better day, less labile, less intrusive. REVIEW OF SYSTEMS: No CV, , pulmonary, eye system symptoms on review. Reliability poor. MENTAL STATUS EXAM: Oriented to herself and situation. Speech coherent, at times pressured. Abstraction fair, computation impaired, language function intact, attention span short. Mood and affect remain somewhat anxious, labile, but improved. LABORATORY DATA: Reviewed. IMPRESSION: Schizoaffective disorder, bipolar type, mixed with psychotic features. Rest unchanged. PLAN: Continue current psychotropics. Check CBC, absolute neutrophil count on 01/04 and if these are normal, we will increase the Clozaril and then reduce the Haldol. MAN rPosper HUNG MD DR: KATIANA/alicia JOB#: [id number] / [id number]
[2018-01-06 16:13] VITALS: BP 134/89
[2018-01-06] MEDS: cloNIDine HCL 0.1 MG TABLET PO SCH (20:02)
[2018-01-06] MEDS: cloZAPine 25 MG TABLET PO SCH (20:03)
[2018-01-06] MEDS: cloZAPine 100 MG TABLET PO SCH (20:03)
[2018-01-06] MEDS: DIVALPROEX ER 250 MG TAB.ER.24H. PO SCH (20:06)
[2018-01-06] MEDS: DIVALPROEX ER 500 MG TAB.ER.24H PO SCH (20:06)
--- NOTE | 2018-01-06 21:01 | PDOC ---
Exam Note: Tay Note: Please also refer to the separate dictated note~for this date of service dictated separately.~Patient seen individually. Discussed the patient with Nursing staff reviewed the chart.~Reviewed interim history and current functioning. Reviewed vital signs,~Labs/ Radiology~and current medications noted below. Continue current treatment with the changes noted in the dictated addendum note Assessment: Vital Signs: Vital Signs Date Time Temp Pulse Resp B/P (MAP) Pulse Ox O2 Delivery O2 Flow Rate FiO2 01/06/18 20:02 92 134/89 01/06/18 16:13 97.5 22 96 Room Air I&O Intake and Output 01/06/18 07:00 Intake Total 960 ml Balance 960 ml Intake Oral 960 ml Labs: Laboratory Tests Test 01/06/18 07:28 01/06/18 11:15 01/06/18 16:25 01/06/18 19:10 Glucose (Fingerstick) 60 mg/dL (70-99) L 153 mg/dL (70-99) H 228 mg/dL (70-99) H 272 mg/dL (70-99) H Current Medications: Meds: Current Medications Acetaminophen (Tylenol) 650 mg PRN Q6HRS PRN PO PAIN / TEMP; Start 12/20/17 at 23:30; Status Cancel Multi-Ingredient Ointment (Analgesic [place]) 1 caridad PRN QID PRN TP MUSCLE PAIN; Start 12/20/17 at 23:30 Al Hydroxide/Mg Hydroxide (Mylanta Plus Xs) 15 ml PRN AFTMEALHC PRN PO DYSPEPSIA; Start 12/20/17 at 23:30 Magnesium Hydroxide (Milk Of Magnesia) 2,400 mg PRN QHS PRN PO CONSTIPATION; Start 12/20/17 at 23:30 Olanzapine (ZyPREXA ZYDIS) 5 mg PRN Q2HR PRN PO PSYCHOSIS; Start 12/21/17 at 01 :00 Aripiprazole (Abilify) 10 mg BID PO Last administered on 12/26/17at 08:44; Start 12/21/17 at 09:00; Stop 12/26/17 at 19:47; Status DC Clozapine (Clozaril) 75 mg QHS PO Last administered on 12/21/17at 20:40; Start 12/21/17 at 21:00; Stop 12/22/17 at 19:20; Status DC Divalproex Sodium (Depakote Er) 1,500 mg QHS PO Last administered on 12/24/17 20:23; Start 12/21/17 at 21:00; Stop 12/25/17 at 19:22; Status DC Fluvoxamine Maleate (Luvox) 50 mg QHS PO Last administered on 01/06/18 20:04; Start 12/21/17 at 21:00 Haloperidol (Haldol) 15 mg BID PO Last administered on 01/04/18at 19:47; Start 12/21/17 at 09:00; Stop 01/04/18 at 19:51; Status DC Haloperidol Lactate (Haldol) 5 mg PRN Q4HRS PRN IM AGITATION; Start 12/21/17 at 01:00; Stop 12/21/17 at 01:43; Status DC Clonidine HCl (Catapres) 0.1 mg HS PO Last administered on 01/06/18 20:02; Start 12/21/17 at 21:00 Gabapentin (Neurontin) 300 mg TID PO Last administered on 01/06/18 20:04; Start 12/21/17 at 10:00 Insulin Human Lispro (HumaLOG) 4 units DAILYWBKFT SQ Last administered on 09:07; Start 12/22/17 at 08:00 Insulin Human Lispro (HumaLOG) 8 units DAILYBFRLUN SQ Last administered on 01/05at 11:53; Start 12/21/17 at 11:30 Insulin Human Lispro (HumaLOG) 10 units DAILYBFRSUP SQ Last administered on 18:15; Start 12/21/17 at 17:00 Albuterol/ Ipratropium (Duoneb) 3 ml RTQID NEB Last administered on 01/01/18 04:10; Start 12/21/17 at 12:00; Stop 01/01/18 at 04:40; Status DC Lactobacillus Rhamnosus (Culturelle) 1 cap BID PO Last administered on 20:03; Start 12/21/17 at 10:00 Lisinopril (Prinivil) 20 mg DAILY PO Last administered on 01/05/18at 09:00; Start 12/21/17 at 10:00 Acetaminophen (Tylenol) 500 mg PRN Q6HRS PRN PO PAIN; Start 12/21/17 at 09:30 Amlodipine Besylate (Norvasc) 10 mg DAILY PO Last administered on 01/05/18 09: 00; Start 12/21/17 at 10:00 Cetirizine HCl (ZyrTEC) 10 mg DAILY PO Last administered on 01/06/18 07:49; Start 12/21/17 at 10:00 Docusate Sodium (Colace) 100 mg DAILY PO Last administered on 01/06/18 07:49; Start 12/21/17 at 10:00 Docusate Sodium (Colace) 100 mg PRN DAILY PRN PO CONSTIPATION; Start 12/21/17 at 10:00 Famotidine (Pepcid) 20 mg BID PO Last administered on 01/06/18 20:04; Start at 10:00 Fluticasone Propionate (Flonase) 2 spray PRN DAILY PRN NS ALLERGIES; Start at 09:30 Furosemide (Lasix) 40 mg DAILY PO Last administered on 01/06/18 07:49; Start 12/21/17 at 10:00 Gemfibrozil (Lopid) 600 mg BID PO Last administered on 01/06/18 20:05; Start 12/21/17 at 10:00 Insulin Glargine (Lantus) 16 units HS SQ Last administered on 01/06/18 20:09; Start 12/21/17 at 21:00 Insulin Glargine (Lantus) 26 units DAILYWBKFT SQ Last administered on 09:05; Start 12/22/17 at 08:00; Stop 01/06/18 at 18:58; Status DC Magnesium Oxide (Magnesium Oxide) 400 mg DAILY PO Last administered on 07:49; Start 12/21/17 at 10:00 Multivitamins/ Calcium (Thera-M Plus) 1 tab DAILY PO Last administered on 07:47; Start 12/21/17 at 10:00 Pioglitazone HCl (Actos) 30 mg DAILY PO Last administered on 01/06/18 07:49; Start 12/21/17 at 10:00 Polyethylene Glycol (miraLAX) 1 gm DAILY PO Last administered on 12/21/17at 10: 12; Start 12/21/17 at 10:00; Stop 12/22/17 at 09:12; Status DC Potassium Chloride (Klor-Con) 10 meq DAILYWBKFT PO Last administered on 07:47; Start 12/22/17 at 10:00 Sennosides (Senna) 8.6 mg BID PO Last administered on 01/06/18 20:04; Start at 10:00 Simethicone (Gas-X) 120 mg TID PO Last administered on 01/06/18 20:05; Start 12/21/17 at 10:00 Trazodone HCl (Desyrel) 12.5 mg TID@0900,1300,1700 PO Last administered on 01/06 16:47; Start 12/21/17 at 10:00 Artificial Tears (Artificial Tears) 1 drop PRN Q15MIN PRN OU DRY EYE Last administered on 12/22/17 15:57; Start 12/21/17 at 16:00 Polyethylene Glycol (miraLAX) 17 gm DAILY PO Last administered on 01/06/18 07: 46; Start 12/23/17 at 09:00 Clozapine (Clozaril) 100 mg QHS PO Last administered on 12/27/17 20:22; Start 12/22/17 at 21:00; Stop 12/28/17 at 16:39; Status DC Divalproex Sodium (Depakote Er) 1,750 mg QHS PO ; Start 12/25/17 at 21:00; Stop 12/25/17 at 21:00; Status DC Divalproex Sodium (Depakote Er) 1,500 mg QHS PO Last administered on 01/06/18 20:06; Start 12/25/17 at 21:00 Divalproex Sodium (Depakote Er) 250 mg QHS PO Last administered on 01/06/18 20 :06; Start 12/25/17 at 21:00 Clozapine (Clozaril) 125 mg QHS PO ; Start 12/28/17 at 21:00; Status UNV Clozapine (Clozaril) 25 mg QHS PO Last administered on 5/28/18at 19:44; Start 12/28/17 at 21:00; Stop 01/04/18 at 19:51; Status DC Clozapine (Clozaril) 100 mg QHS PO Last administered on 01/06/18at 20:03; Start 12/28/17 at 21:00 Albuterol Sulfate (Ventolin) 2.5 mg PRN QID PRN NEB SHORTNESS OF BREATH; Start 01/01/18 at 04:45 Clozapine (Clozaril) 50 mg QHS PO Last administered on 01/06/18at 20:03; Start 01/04/18 at 21:00 Haloperidol (Haldol) 15 mg HS PO Last administered on 01/06/18at 20:05; Start at 21:00; Stop 01/06/18 at 21:00 Haloperidol (Haldol) 10 mg DAILY PO Last administered on 01/06/18at 07:48; Start 01/05/18 at 09:00 Haloperidol (Haldol) 10 mg HS PO ; Start 01/07/18 at 21:00 Insulin Glargine (Lantus) 20 units DAILYWBKFT SQ ; Start 01/07/18 at 08:00 Active Scripts Active Reported Duoneb 0.5-3(2.5) Mg/3 Ml (Albuterol/Ipratropium) 3 Ml Ampul.neb 3 Ml NEB RTQID Trazodone Hcl 50 Mg Tablet 12.5 Mg PO TID@0900,1300,1700 Fluvoxamine Maleate 50 Mg Tablet 50 Mg PO QHS Clozaril (Clozapine) 25 Mg Tablet 75 Mg PO QHS Miralax (Polyethylene Glycol 3350) 17 Gm Powd.pack 1 Packet PO DAILY Zyprexa Zydis (Olanzapine) 5 Mg Tab.rapdis 5 Mg PO PRN Q2HR PRN Depakote Er (Divalproex Sodium) 500 Mg Tab.er.24h 1,500 Tab PO QHS Culturelle (Lactobacillus Rhamnosus Gg) 1 Each Cap.sprink 1 Each PO BID Multi Vitamin Daily (Multivitamin) 1 Each Tablet 1 Tab PO DAILY Simethicone 125 Mg Capsule 120 Mg PO TID Senna Lax (Sennosides) 8.6 Mg Tablet 8.6 Mg PO BID Potassium Chloride 10 Meq Tablet.er 10 Meq PO DAILYWBKFT Actos (Pioglitazone Hcl) 30 Mg Tablet 30 Mg PO DAILY Pepcid (Famotidine) 20 Mg Tablet 20 Mg PO BID Novolog Flexpen (Insulin Aspart) 100 Unit/1 Ml Insuln.pen 8 Units SQ DAILYBFRLUN Novolog Flexpen (Insulin Aspart) 100 Unit/1 Ml Insuln.pen 4 Units SQ DAILYWBKFT Novolog Flexpen (Insulin Aspart) 100 Unit/1 Ml Insuln.pen 10 Unit SQ DAILYBFRSUP Mapap (Acetaminophen) 500 Mg Tablet 500 Mg PO PRN Q6HRS PRN Magnesium Oxide 400 Mg Tablet 400 Mg PO DAILY Lisinopril 20 Mg Tablet 20 Mg PO DAILY Levemir Flextouch (Insulin Detemir) 100 Unit/1 Ml Insuln.pen 26 Units SQ DAILYWBKFT Levemir Flextouch (Insulin Detemir) 100 Unit/1 Ml Insuln.pen 16 Units SQ HS Lasix (Furosemide) 40 Mg Tablet 40 Mg PO DAILY Haloperidol 10 Mg Tablet 15 Mg PO BID Haloperidol Lactate 5 Mg/1 Ml Vial 5 Mg IM PRN Q4HRS PRN Gemfibrozil 600 Mg Tablet 600 Mg PO BID Gabapentin 300 Mg Capsule 300 Mg PO TID Flonase Allergy Relief (Fluticasone Propionate) 9.9 Ml [place].susp 2 Sprays NS PRN PRN Docusate Sodium 100 Mg Capsule 100 Mg PO DAILY Docusate Sodium 100 Mg Capsule 100 Mg PO PRN DAILY PRN Clonidine Hcl 0.1 Mg Tablet 0.1 Mg PO HS Cetirizine Hcl 10 Mg Tablet 10 Mg PO DAILY Aspirin Ec (Aspirin) 81 Mg Tablet.dr 81 Mg PO DAILYWBKFT Amlodipine Besylate 10 Mg Tablet 10 Mg PO DAILY Abilify (Aripiprazole) 15 Mg Tablet 10 Mg PO BID I have reviewed the current psychotropics carefully including drug interactions. Risk benefit ratio favors no change other than as noted in my dictated progress note. Diagnosis: Problems: (1) Anxiety disorder (2) Bipolar affective, mixed, sev w/ psych (3) Schizoaffective disorder, chronic condition with acute exacerbation (4) Schizophrenia, disorganized, subchronic with acute exacerbation JASS HUNG MD January 06, 2018 21:01
--- NOTE | 2018-01-07 03:09 | PN ---
DATE: 01/05/2018 This is a late entry, 01/05/2018, covers the elements not covered in my initial note, 01/05/2018. SUBJECTIVE: I met with the patient in the evening. The patient has been a little better, less anxious, still somewhat paranoid at times, obsessed regarding telephone calls. REVIEW OF SYSTEMS: No CV, , pulmonary, eye, ENT system symptoms on review. She has vague somatic symptoms. MENTAL STATUS EXAM: Oriented to herself and situation. Speech moderate latency, often responses monosyllabic. Abstraction fair, computation impaired, language function intact. Mood and affect, lability is improved. LABORATORY DATA: Reviewed. IMPRESSION: Unchanged from initial note. PLAN: Continue current psychotropics, the Clozaril was increased, and Haldol reduced. MAN Prosper HUNG MD DR: KATIANA/alicia JOB#: [id number] / [id number]
[2018-01-07 06:17] VITALS: BP 162/85
[2018-01-07] MEDS: POLYETHYLENE GLYCOL 3350 17 GM PACKET. PO SCH (08:32)
[2018-01-07] MEDS: FUROSEMIDE 40 MG TABLET PO SCH (08:33)
[2018-01-07] MEDS: PIOGLITAZONE 15 MG TABLET. PO SCH (08:33)
[2018-01-07] MEDS: POTASSIUM CHLORIDE 10 MEQ TABLET.ER. PO SCH (08:33)
[2018-01-07] MEDS: MAGNESIUM OXIDE 400 MG TABLET PO SCH (08:33)
[2018-01-07] MEDS: GEMFIBROZIL 600 MG TABLET. PO SCH ×2 (08:33→20:18)
[2018-01-07] MEDS: SENNOSIDES 8.6 MG TABLET PO SCH ×2 (08:37→20:19)
[2018-01-07] MEDS: traZODone 50 MG TABLET. PO SCH ×3 (08:37→17:14)
[2018-01-07] MEDS: SIMETHICONE 80 MG TAB.CHEW PO SCH ×3 (08:38→20:17)
[2018-01-07] MEDS: MULTIVITAMIN with MINERAL TABLET. PO SCH (08:38)
[2018-01-07] MEDS: LISINOPRIL 20 MG TABLET PO SCH (08:39)
[2018-01-07] MEDS: CETIRIZINE HCL 10 MG TABLET PO SCH (08:39)
[2018-01-07] MEDS: HALOPERIDOL 5 MG TABLET PO SCH (08:39)
[2018-01-07] MEDS: LACTOBACILLUS RHAMNOSUS GG 1 CAPSULE. PO SCH ×2 (08:39→20:15)
[2018-01-07] MEDS: FAMOTIDINE 20 MG TABLET PO SCH ×2 (08:39→20:19)
[2018-01-07] MEDS: GABAPENTIN 300 MG CAPSULE. PO SCH ×3 (08:39→20:19)
[2018-01-07] MEDS: DOCUSATE SODIUM 100 MG CAPSULE PO SCH (08:39)
[2018-01-07] MEDS: amLODIPine BESYLATE 10 MG TABLET PO SCH (08:39)
[2018-01-07] MEDS: INSULIN LISPRO 300 UNITS/3 ML INSULN.PEN. SQ SCH ×3 (08:45→17:34)
[2018-01-07] MEDS: INSULIN GLARGINE 300 UNITS/3 ML INSULN.PEN. SQ SCH ×2 (08:45→20:20)
[2018-01-07 16:10] VITALS: BP 138/72
[2018-01-07] MEDS: cloNIDine HCL 0.1 MG TABLET PO SCH (20:15)
[2018-01-07] MEDS: cloZAPine 25 MG TABLET PO SCH (20:15)
[2018-01-07] MEDS: cloZAPine 100 MG TABLET PO SCH (20:15)
[2018-01-07] MEDS: DIVALPROEX ER 500 MG TAB.ER.24H PO SCH (20:16)
[2018-01-07] MEDS: DIVALPROEX ER 250 MG TAB.ER.24H. PO SCH (20:19)
--- NOTE | 2018-01-07 20:40 | PDOC ---
Exam Note: Tay Note: Please also refer to the separate dictated note~for this date of service dictated separately.~Patient seen individually. Discussed the patient with Nursing staff reviewed the chart.~Reviewed interim history and current functioning. Reviewed vital signs,~Labs/ Radiology~and current medications noted below. Continue current treatment with the changes noted in the dictated addendum note Assessment: Vital Signs: Vital Signs Date Time Temp Pulse Resp B/P (MAP) Pulse Ox O2 Delivery O2 Flow Rate FiO2 01/07/18 20:15 65 138/72 01/07/18 16:10 96.9 18 96 Room Air I&O Intake and Output 01/07/18 07:00 Intake Total 1200 ml Balance 1200 ml Intake Oral 1200 ml Labs: Laboratory Tests Test 01/07/18 07:06 01/07/18 11:23 01/07/18 16:13 01/07/18 19:01 Glucose (Fingerstick) 258 mg/dL (70-99) H 202 mg/dL (70-99) H 178 mg/dL (70-99) H 205 mg/dL (70-99) H Current Medications: Meds: Current Medications Acetaminophen (Tylenol) 650 mg PRN Q6HRS PRN PO PAIN / TEMP; Start 12/20/17 at 23:30; Status Cancel Multi-Ingredient Ointment (Analgesic [place]) 1 caridad PRN QID PRN TP MUSCLE PAIN; Start 12/20/17 at 23:30 Al Hydroxide/Mg Hydroxide (Mylanta Plus Xs) 15 ml PRN AFTMEALHC PRN PO DYSPEPSIA; Start 12/20/17 at 23:30 Magnesium Hydroxide (Milk Of Magnesia) 2,400 mg PRN QHS PRN PO CONSTIPATION; Start 12/20/17 at 23:30 Olanzapine (ZyPREXA ZYDIS) 5 mg PRN Q2HR PRN PO PSYCHOSIS; Start 12/21/17 at 01 :00 Aripiprazole (Abilify) 10 mg BID PO Last administered on 12/26/17at 08:44; Start 12/21/17 at 09:00; Stop 12/26/17 at 19:47; Status DC Clozapine (Clozaril) 75 mg QHS PO Last administered on 12/21/17at 20:40; Start 12/21/17 at 21:00; Stop 12/22/17 at 19:20; Status DC Divalproex Sodium (Depakote Er) 1,500 mg QHS PO Last administered on 12/24/17 20:23; Start 12/21/17 at 21:00; Stop 12/25/17 at 19:22; Status DC Fluvoxamine Maleate (Luvox) 50 mg QHS PO Last administered on 01/07/18 20:18; Start 12/21/17 at 21:00 Haloperidol (Haldol) 15 mg BID PO Last administered on 01/04/18at 19:47; Start 12/21/17 at 09:00; Stop 01/04/18 at 19:51; Status DC Haloperidol Lactate (Haldol) 5 mg PRN Q4HRS PRN IM AGITATION; Start 12/21/17 at 01:00; Stop 12/21/17 at 01:43; Status DC Clonidine HCl (Catapres) 0.1 mg HS PO Last administered on 01/07/18 20:15; Start 12/21/17 at 21:00 Gabapentin (Neurontin) 300 mg TID PO Last administered on 01/07/18 20:19; Start 12/21/17 at 10:00 Insulin Human Lispro (HumaLOG) 4 units DAILYWBKFT SQ Last administered on 08:45; Start 12/22/17 at 08:00 Insulin Human Lispro (HumaLOG) 8 units DAILYBFRLUN SQ Last administered on 01/07 11:55; Start 12/21/17 at 11:30 Insulin Human Lispro (HumaLOG) 10 units DAILYBFRSUP SQ Last administered on 17:34; Start 12/21/17 at 17:00 Albuterol/ Ipratropium (Duoneb) 3 ml RTQID NEB Last administered on 01/01/18 04:10; Start 12/21/17 at 12:00; Stop 01/01/18 at 04:40; Status DC Lactobacillus Rhamnosus (Culturelle) 1 cap BID PO Last administered on 20:15; Start 12/21/17 at 10:00 Lisinopril (Prinivil) 20 mg DAILY PO Last administered on 01/07/18at 08:39; Start 12/21/17 at 10:00 Acetaminophen (Tylenol) 500 mg PRN Q6HRS PRN PO PAIN; Start 12/21/17 at 09:30 Amlodipine Besylate (Norvasc) 10 mg DAILY PO Last administered on 01/07/18 08: 39; Start 12/21/17 at 10:00 Cetirizine HCl (ZyrTEC) 10 mg DAILY PO Last administered on 01/07/18 08:39; Start 12/21/17 at 10:00 Docusate Sodium (Colace) 100 mg DAILY PO Last administered on 01/07/18 08:39; Start 12/21/17 at 10:00 Docusate Sodium (Colace) 100 mg PRN DAILY PRN PO CONSTIPATION; Start 12/21/17 at 10:00 Famotidine (Pepcid) 20 mg BID PO Last administered on 01/07/18at 20:19; Start at 10:00 Fluticasone Propionate (Flonase) 2 spray PRN DAILY PRN NS ALLERGIES; Start at 09:30 Furosemide (Lasix) 40 mg DAILY PO Last administered on 01/07/18 08:33; Start 12/21/17 at 10:00 Gemfibrozil (Lopid) 600 mg BID PO Last administered on 01/07/18 20:18; Start 12/21/17 at 10:00 Insulin Glargine (Lantus) 16 units HS SQ Last administered on 01/07/18 20:20; Start 12/21/17 at 21:00 Insulin Glargine (Lantus) 26 units DAILYWBKFT SQ Last administered on 09:05; Start 12/22/17 at 08:00; Stop 01/06/18 at 18:58; Status DC Magnesium Oxide (Magnesium Oxide) 400 mg DAILY PO Last administered on 08:33; Start 12/21/17 at 10:00 Multivitamins/ Calcium (Thera-M Plus) 1 tab DAILY PO Last administered on 08:38; Start 12/21/17 at 10:00 Pioglitazone HCl (Actos) 30 mg DAILY PO Last administered on 01/07/18 08:33; Start 12/21/17 at 10:00 Polyethylene Glycol (miraLAX) 1 gm DAILY PO Last administered on 12/21/17 10: 12; Start 12/21/17 at 10:00; Stop 12/22/17 at 09:12; Status DC Potassium Chloride (Klor-Con) 10 meq DAILYWBKFT PO Last administered on 08:33; Start 12/22/17 at 10:00 Sennosides (Senna) 8.6 mg BID PO Last administered on 01/07/18 20:19; Start at 10:00 Simethicone (Gas-X) 120 mg TID PO Last administered on 01/07/18 20:17; Start 12/21/17 at 10:00 Trazodone HCl (Desyrel) 12.5 mg TID@0900,1300,1700 PO Last administered on 01/07 17:14; Start 12/21/17 at 10:00 Artificial Tears (Artificial Tears) 1 drop PRN Q15MIN PRN OU DRY EYE Last administered on 12/22/17 15:57; Start 12/21/17 at 16:00 Polyethylene Glycol (miraLAX) 17 gm DAILY PO Last administered on 01/07/18 08: 32; Start 12/23/17 at 09:00 Clozapine (Clozaril) 100 mg QHS PO Last administered on 12/27/17 20:22; Start 12/22/17 at 21:00; Stop 12/28/17 at 16:39; Status DC Divalproex Sodium (Depakote Er) 1,750 mg QHS PO ; Start 12/25/17 at 21:00; Stop 12/25/17 at 21:00; Status DC Divalproex Sodium (Depakote Er) 1,500 mg QHS PO Last administered on 01/07/18 20:16; Start 12/25/17 at 21:00 Divalproex Sodium (Depakote Er) 250 mg QHS PO Last administered on 01/07/18 20 :19; Start 12/25/17 at 21:00 Clozapine (Clozaril) 125 mg QHS PO ; Start 12/28/17 at 21:00; Status UNV Clozapine (Clozaril) 25 mg QHS PO Last administered on 5/28/18at 19:44; Start 12/28/17 at 21:00; Stop 01/04/18 at 19:51; Status DC Clozapine (Clozaril) 100 mg QHS PO Last administered on 01/07/18at 20:15; Start 12/28/17 at 21:00 Albuterol Sulfate (Ventolin) 2.5 mg PRN QID PRN NEB SHORTNESS OF BREATH; Start 01/01/18 at 04:45 Clozapine (Clozaril) 50 mg QHS PO Last administered on 01/07/18at 20:15; Start 01/04/18 at 21:00 Haloperidol (Haldol) 15 mg HS PO Last administered on 01/06/18at 20:05; Start at 21:00; Stop 01/06/18 at 21:01; Status DC Haloperidol (Haldol) 10 mg DAILY PO Last administered on 01/07/18at 08:39; Start 01/05/18 at 09:00 Haloperidol (Haldol) 10 mg HS PO Last administered on 01/07/18at 20:18; Start at 21:00 Insulin Glargine (Lantus) 20 units DAILYWBKFT SQ Last administered on at 08:45; Start 01/07/18 at 08:00 Active Scripts Active Reported Duoneb 0.5-3(2.5) Mg/3 Ml (Albuterol/Ipratropium) 3 Ml Ampul.neb 3 Ml NEB RTQID Trazodone Hcl 50 Mg Tablet 12.5 Mg PO TID@0900,1300,1700 Fluvoxamine Maleate 50 Mg Tablet 50 Mg PO QHS Clozaril (Clozapine) 25 Mg Tablet 75 Mg PO QHS Miralax (Polyethylene Glycol 3350) 17 Gm Powd.pack 1 Packet PO DAILY Zyprexa Zydis (Olanzapine) 5 Mg Tab.rapdis 5 Mg PO PRN Q2HR PRN Depakote Er (Divalproex Sodium) 500 Mg Tab.er.24h 1,500 Tab PO QHS Culturelle (Lactobacillus Rhamnosus Gg) 1 Each Cap.sprink 1 Each PO BID Multi Vitamin Daily (Multivitamin) 1 Each Tablet 1 Tab PO DAILY Simethicone 125 Mg Capsule 120 Mg PO TID Senna Lax (Sennosides) 8.6 Mg Tablet 8.6 Mg PO BID Potassium Chloride 10 Meq Tablet.er 10 Meq PO DAILYWBKFT Actos (Pioglitazone Hcl) 30 Mg Tablet 30 Mg PO DAILY Pepcid (Famotidine) 20 Mg Tablet 20 Mg PO BID Novolog Flexpen (Insulin Aspart) 100 Unit/1 Ml Insuln.pen 8 Units SQ DAILYBFRLUN Novolog Flexpen (Insulin Aspart) 100 Unit/1 Ml Insuln.pen 4 Units SQ DAILYWBKFT Novolog Flexpen (Insulin Aspart) 100 Unit/1 Ml Insuln.pen 10 Unit SQ DAILYBFRSUP Mapap (Acetaminophen) 500 Mg Tablet 500 Mg PO PRN Q6HRS PRN Magnesium Oxide 400 Mg Tablet 400 Mg PO DAILY Lisinopril 20 Mg Tablet 20 Mg PO DAILY Levemir Flextouch (Insulin Detemir) 100 Unit/1 Ml Insuln.pen 26 Units SQ DAILYWBKFT Levemir Flextouch (Insulin Detemir) 100 Unit/1 Ml Insuln.pen 16 Units SQ HS Lasix (Furosemide) 40 Mg Tablet 40 Mg PO DAILY Haloperidol 10 Mg Tablet 15 Mg PO BID Haloperidol Lactate 5 Mg/1 Ml Vial 5 Mg IM PRN Q4HRS PRN Gemfibrozil 600 Mg Tablet 600 Mg PO BID Gabapentin 300 Mg Capsule 300 Mg PO TID Flonase Allergy Relief (Fluticasone Propionate) 9.9 Ml Hoffman.susp 2 Sprays NS PRN PRN Docusate Sodium 100 Mg Capsule 100 Mg PO DAILY Docusate Sodium 100 Mg Capsule 100 Mg PO PRN DAILY PRN Clonidine Hcl 0.1 Mg Tablet 0.1 Mg PO HS Cetirizine Hcl 10 Mg Tablet 10 Mg PO DAILY Aspirin Ec (Aspirin) 81 Mg Tablet.dr 81 Mg PO DAILYWBKFT Amlodipine Besylate 10 Mg Tablet 10 Mg PO DAILY Abilify (Aripiprazole) 15 Mg Tablet 10 Mg PO BID I have reviewed the current psychotropics carefully including drug interactions. Risk benefit ratio favors no change other than as noted in my dictated progress note. Diagnosis: Problems: (1) Anxiety disorder (2) Bipolar affective, mixed, sev w/ psych (3) Schizoaffective disorder, chronic condition with acute exacerbation (4) Schizophrenia, disorganized, subchronic with acute exacerbation JASS HUNG MD January 07, 2018 20:40
[2018-01-07] MEDS ORDERED: HALOPERIDOL 5 MG TABLET PO SCH (21:00)
[2018-01-08 06:06] VITALS: BP 136/59
[2018-01-08] MEDS: POTASSIUM CHLORIDE 10 MEQ TABLET.ER. PO SCH ×2 (08:00→09:32)
[2018-01-08] MEDS: INSULIN LISPRO 300 UNITS/3 ML INSULN.PEN. SQ SCH ×3 (08:00→17:47)
[2018-01-08] MEDS: DOCUSATE SODIUM 100 MG CAPSULE PO SCH ×2 (09:00→09:32)
[2018-01-08] MEDS: FUROSEMIDE 40 MG TABLET PO SCH ×2 (09:00→09:35)
[2018-01-08] MEDS: PIOGLITAZONE 15 MG TABLET. PO SCH ×2 (09:00→09:32)
[2018-01-08] MEDS: LISINOPRIL 20 MG TABLET PO SCH ×2 (09:00→09:33)
[2018-01-08] MEDS: amLODIPine BESYLATE 10 MG TABLET PO SCH ×2 (09:00→09:33)
[2018-01-08] MEDS: SENNOSIDES 8.6 MG TABLET PO SCH ×3 (09:00→19:40)
[2018-01-08] MEDS: CETIRIZINE HCL 10 MG TABLET PO SCH ×2 (09:00→09:32)
[2018-01-08] MEDS: GEMFIBROZIL 600 MG TABLET. PO SCH ×3 (09:00→19:40)
[2018-01-08] MEDS: SIMETHICONE 80 MG TAB.CHEW PO SCH ×4 (09:00→19:41)
[2018-01-08] MEDS: LACTOBACILLUS RHAMNOSUS GG 1 CAPSULE. PO SCH ×3 (09:00→19:42)
[2018-01-08] MEDS: FAMOTIDINE 20 MG TABLET PO SCH ×3 (09:00→19:41)
[2018-01-08] MEDS: MAGNESIUM OXIDE 400 MG TABLET PO SCH ×2 (09:00→09:33)
[2018-01-08] MEDS: MULTIVITAMIN with MINERAL TABLET. PO SCH ×2 (09:00→09:32)
[2018-01-08] MEDS: GABAPENTIN 300 MG CAPSULE. PO SCH ×4 (09:00→19:40)
[2018-01-08] MEDS: POLYETHYLENE GLYCOL 3350 17 GM PACKET. PO SCH ×2 (09:00→09:35)
[2018-01-08] MEDS: HALOPERIDOL 5 MG TABLET PO SCH (09:34)
[2018-01-08] MEDS: traZODone 50 MG TABLET. PO SCH (09:34)
[2018-01-08] MEDS: INSULIN GLARGINE 300 UNITS/3 ML INSULN.PEN. SQ SCH ×2 (09:36→20:02)
[2018-01-08 10:07] LABS: BASO % 0 % (0-3); EOS # 0.3 x10^3/uL (0.0-0.7); EOS % 7 % (0-3); HEMATOCRIT 33.6 % (36.0-47.0); HEMOGLOBIN 10.8 g/dL (12.0-15.5); LYMPH # 1.6 x10^3/uL (1.0-4.8); LYMPH % 32 % (24-48); MEAN CORPUSCULAR HEMOGLOBIN 28 pg (25-35); MEAN CORPUSCULAR HGB CONC 32 g/dL (31-37); MEAN CORPUSCULAR VOLUME 86 fL (79-100); MONO # 0.4 x10^3/uL (0.0-1.1); MONO % 8 % (0-9); NEUT # 2.6 x10^3uL (1.8-7.7); NEUT % 53 % (31-73); PLATELET COUNT 278 x10^3/uL (140-400); RED BLOOD COUNT 3.93 x10^6/uL (3.50-5.40); RED CELL DISTRIBUTION WIDTH 17.7 % (11.5-14.5)
[2018-01-08 10:21] LABS: ALBUMIN/GLOBULIN RATIO 0.8 (1.0-1.7); ALK PHOS 174 U/L (46-116); ALT (SGPT) 21 U/L (14-59); ANION GAP 5 (6-14); AST (SGOT) 17 U/L (15-37); BLOOD UREA NITROGEN 34 mg/dL (7-20); BUN/CREATININE RATIO 14 (6-20); CALCIUM 8.3 mg/dL (8.5-10.1); CARBON DIOXIDE 37 mmol/L (21-32); CHLORIDE 104 mmol/L (98-107); CREATININE 2.5 mg/dL (0.6-1.0); GFR 24.7; GLUCOSE 195 mg/dL (70-99); POTASSIUM 4.7 mmol/L (3.5-5.1); SODIUM 146 mmol/L (136-145); TOTAL BILIRUBIN 0.2 mg/dL (0.2-1.0); TOTAL PROTEIN 6.9 g/dL (6.4-8.2)
[2018-01-08 10:22] LABS: VAL ACID 63 mcg/mL (50-100)
--- NOTE | 2018-01-08 10:34 | RAD ---
CT HEAD INDICATION: CHANGE IN MENTAL STATUS COMPARISON: 01/01/2018 TECHNIQUE: 5 mm contiguous axial images were obtained from the skull base to the vertex in both bone and soft tissue algorithm. Exposure: One or more of the following individualized dose reduction techniques were utilized for this examination: 1. Automated exposure control 2. Adjustment of the mA and/or kV according to patient size 3. Use of iterative reconstruction technique FINDINGS: No abnormal attenuation within the brain parenchyma. No evidence of acute intracranial hemorrhage. No extra-axial fluid collections. No mass effect or midline shift. Ventricular size is appropriate. Basal cisterns are patent. No fractures identified.[place]-white differentiation is preserved.Globes and orbits are within normal limits. Paranasal sinuses and mastoid air cells are clear. IMPRESSION: No acute intracranial findings. Electronically signed by: Tad Ayoub MD (01/08/2018 10:30 AM) [id number]
--- NOTE | 2018-01-08 11:59 | RAD ---
Exam: AP portable chest History: Wet cough. Comparison: December 30, 2017. Findings: The heart and mediastinal structures are within normal limits for size given positioning. Lungs are without focal consolidation. No pleural effusion or pneumothorax is identified. Pulmonary vascularity may be accentuated. Impression: 1. Pulmonary vascularity appears accentuated, may represent pulmonary vascular congestion. Recommend clinical correlation. Electronically signed by: Олег Nunes MD (01/08/2018 11:56 AM) [place] [id number]
[2018-01-08 12:21] VITALS: BP 158/78
[2018-01-08 16:05] VITALS: BP 148/61
[2018-01-08 16:15] LABS: BGAS PH 7.5 (7.35-7.45)
[2018-01-08] MEDS ORDERED: traZODone 50 MG TABLET. PO PRN (19:30)
[2018-01-08] MEDS: cloNIDine HCL 0.1 MG TABLET PO SCH (19:40)
[2018-01-08] MEDS: DIVALPROEX ER 250 MG TAB.ER.24H. PO SCH (19:40)
[2018-01-08] MEDS: DIVALPROEX ER 500 MG TAB.ER.24H PO SCH (19:41)
[2018-01-08] MEDS: cloZAPine 100 MG TABLET PO SCH (19:42)
[2018-01-08] MEDS: cloZAPine 25 MG TABLET PO SCH (19:42)
--- NOTE | 2018-01-08 20:41 | PDOC ---
Exam Note: Tay Note: Please also refer to the separate dictated note~for this date of service dictated separately.~Patient seen individually. Discussed the patient with Nursing staff reviewed the chart.~Reviewed interim history and current functioning. Reviewed vital signs,~Labs/ Radiology~and current medications noted below. Continue current treatment with the changes noted in the dictated addendum note Assessment: Vital Signs: Vital Signs Date Time Temp Pulse Resp B/P (MAP) Pulse Ox O2 Delivery O2 Flow Rate FiO2 01/08/18 19:40 96 148/61 01/08/18 16:05 97.3 20 95 01/08/18 06:06 Room Air I&O Intake and Output 01/08/18 07:00 Intake Total 1440 ml Balance 1440 ml Intake Oral 1440 ml Labs: Laboratory Tests Test 01/08/18 07:38 01/08/18 09:58 01/08/18 11:33 01/08/18 16:03 Glucose (Fingerstick) 193 mg/dL (70-99) H 150 mg/dL (70-99) H White Blood Count 5.0 x10^3/uL (4.0-11.0) Red Blood Count 3.93 x10^6/uL (3.50-5.40) Hemoglobin 10.8 g/dL (12.0-15.5) L Hematocrit 33.6 % (36.0-47.0) L Mean Corpuscular Volume 86 fL (79-100) Mean Corpuscular Hemoglobin 28 pg (25-35) Mean Corpuscular Hemoglobin Concent 32 g/dL (31-37) Red Cell Distribution Width 17.7 % (11.5-14.5) H Platelet Count 278 x10^3/uL (140-400) Neutrophils (%) (Auto) 53 % (31-73) Lymphocytes (%) (Auto) 32 % (24-48) Monocytes (%) (Auto) 8 % (0-9) Eosinophils (%) (Auto) 7 % (0-3) H Basophils (%) (Auto) 0 % (0-3) Neutrophils # (Auto) 2.6 x10^3uL (1.8-7.7) Lymphocytes # (Auto) 1.6 x10^3/uL (1.0-4.8) Monocytes # (Auto) 0.4 x10^3/uL (0.0-1.1) Eosinophils # (Auto) 0.3 x10^3/uL (0.0-0.7) Basophils # (Auto) 0.0 x10^3/uL (0.0-0.2) Sodium Level 146 mmol/L (136-145) H Potassium Level 4.7 mmol/L (3.5-5.1) Chloride Level 104 mmol/L (98-107) Carbon Dioxide Level 37 mmol/L (21-32) H Anion Gap 5 (6-14) L Blood Urea Nitrogen 34 mg/dL (7-20) H Creatinine 2.5 mg/dL (0.6-1.0) H Estimated GFR (Cockcroft-Gault) 24.7 BUN/Creatinine Ratio 14 (6-20) Glucose Level 195 mg/dL (70-99) H Calcium Level 8.3 mg/dL (8.5-10.1) L Total Bilirubin 0.2 mg/dL (0.2-1.0) Aspartate Amino Transferase (AST) 17 U/L (15-37) Alanine Aminotransferase (ALT) 21 U/L (14-59) Alkaline Phosphatase 174 U/L (46-116) H Ammonia < 10 mcmol/L (11-34) L Creatine Kinase 314 U/L (26-192) H Total Protein 6.9 g/dL (6.4-8.2) Albumin 3.0 g/dL (3.4-5.0) L Albumin/Globulin Ratio 0.8 (1.0-1.7) L Valproic Acid Level 63 mcg/mL (50-100) Valproic Acid Last Dose Date 01/07/2018 Valproic Acid Last Dose Time 2100 Blood pH 7.50 (7.35-7.45) H Blood Gas PCO2 48 mmHg (35-45) H Blood Gas PO2 70 mmHg (80-100) L Blood Gas HCO3 36 mmol/L (22-26) H Arterial Bld O2 Saturation (Calc) 95 % (92-99) FiO2 98 % Test 01/08/18 16:35 01/08/18 19:18 Glucose (Fingerstick) 204 mg/dL (70-99) H 262 mg/dL (70-99) H Current Medications: Meds: Current Medications Acetaminophen (Tylenol) 650 mg PRN Q6HRS PRN PO PAIN / TEMP; Start 12/20/17 at 23:30; Status Cancel Multi-Ingredient Ointment (Analgesic [place]) 1 caridad PRN QID PRN TP MUSCLE PAIN; Start 12/20/17 at 23:30 Al Hydroxide/Mg Hydroxide (Mylanta Plus Xs) 15 ml PRN AFTMEALHC PRN PO DYSPEPSIA; Start 12/20/17 at 23:30 Magnesium Hydroxide (Milk Of Magnesia) 2,400 mg PRN QHS PRN PO CONSTIPATION; Start 12/20/17 at 23:30 Olanzapine (ZyPREXA ZYDIS) 5 mg PRN Q2HR PRN PO PSYCHOSIS; Start 12/21/17 at 01 :00 Aripiprazole (Abilify) 10 mg BID PO Last administered on 12/26/17at 08:44; Start 12/21/17 at 09:00; Stop 12/26/17 at 19:47; Status DC Clozapine (Clozaril) 75 mg QHS PO Last administered on 12/21/17at 20:40; Start 12/21/17 at 21:00; Stop 12/22/17 at 19:20; Status DC Divalproex Sodium (Depakote Er) 1,500 mg QHS PO Last administered on 12/24/17at 20:23; Start 12/21/17 at 21:00; Stop 12/25/17 at 19:22; Status DC Fluvoxamine Maleate (Luvox) 50 mg QHS PO Last administered on 01/08/18at 19:41; Start 12/21/17 at 21:00 Haloperidol (Haldol) 15 mg BID PO Last administered on 01/04/18at 19:47; Start 12/21/17 at 09:00; Stop 01/04/18 at 19:51; Status DC Haloperidol Lactate (Haldol) 5 mg PRN Q4HRS PRN IM AGITATION; Start 12/21/17 at 01:00; Stop 12/21/17 at 01:43; Status DC Clonidine HCl (Catapres) 0.1 mg HS PO Last administered on 01/08/18 19:40; Start 12/21/17 at 21:00 Gabapentin (Neurontin) 300 mg TID PO Last administered on 01/08/18 19:40; Start 12/21/17 at 10:00 Insulin Human Lispro (HumaLOG) 4 units DAILYWBKFT SQ Last administered on 08:45; Start 12/22/17 at 08:00 Insulin Human Lispro (HumaLOG) 8 units DAILYBFRLUN SQ Last administered on 01/07at 11:55; Start 12/21/17 at 11:30 Insulin Human Lispro (HumaLOG) 10 units DAILYBFRSUP SQ Last administered on 01/08 17:47; Start 12/21/17 at 17:00 Albuterol/ Ipratropium (Duoneb) 3 ml RTQID NEB Last administered on 01/01/18 04:10; Start 12/21/17 at 12:00; Stop 01/01/18 at 04:40; Status DC Lactobacillus Rhamnosus (Culturelle) 1 cap BID PO Last administered on 19:42; Start 12/21/17 at 10:00 Lisinopril (Prinivil) 20 mg DAILY PO Last administered on 01/07/18 08:39; Start 12/21/17 at 10:00 Acetaminophen (Tylenol) 500 mg PRN Q6HRS PRN PO PAIN; Start 12/21/17 at 09:30 Amlodipine Besylate (Norvasc) 10 mg DAILY PO Last administered on 01/07/18 08: 39; Start 12/21/17 at 10:00 Cetirizine HCl (ZyrTEC) 10 mg DAILY PO Last administered on 01/07/18 08:39; Start 12/21/17 at 10:00 Docusate Sodium (Colace) 100 mg DAILY PO Last administered on 01/07/18 08:39; Start 12/21/17 at 10:00 Docusate Sodium (Colace) 100 mg PRN DAILY PRN PO CONSTIPATION; Start 12/21/17 at 10:00 Famotidine (Pepcid) 20 mg BID PO Last administered on 01/08/18 19:41; Start at 10:00 Fluticasone Propionate (Flonase) 2 spray PRN DAILY PRN NS ALLERGIES; Start at 09:30 Furosemide (Lasix) 40 mg DAILY PO Last administered on 01/07/18 08:33; Start 12/21/17 at 10:00 Gemfibrozil (Lopid) 600 mg BID PO Last administered on 01/08/18 19:40; Start at 10:00 Insulin Glargine (Lantus) 16 units HS SQ Last administered on 01/08/18 20:02; Start 12/21/17 at 21:00 Insulin Glargine (Lantus) 26 units DAILYWBKFT SQ Last administered on 09:05; Start 12/22/17 at 08:00; Stop 01/06/18 at 18:58; Status DC Magnesium Oxide (Magnesium Oxide) 400 mg DAILY PO Last administered on 08:33; Start 12/21/17 at 10:00 Multivitamins/ Calcium (Thera-M Plus) 1 tab DAILY PO Last administered on 08:38; Start 12/21/17 at 10:00 Pioglitazone HCl (Actos) 30 mg DAILY PO Last administered on 01/07/18 08:33; Start 12/21/17 at 10:00 Polyethylene Glycol (miraLAX) 1 gm DAILY PO Last administered on 12/21/17at 10: 12; Start 12/21/17 at 10:00; Stop 12/22/17 at 09:12; Status DC Potassium Chloride (Klor-Con) 10 meq DAILYWBKFT PO Last administered on 08:33; Start 12/22/17 at 10:00 Sennosides (Senna) 8.6 mg BID PO Last administered on 01/08/18 19:40; Start at 10:00 Simethicone (Gas-X) 120 mg TID PO Last administered on 01/08/18 19:41; Start at 10:00 Trazodone HCl (Desyrel) 12.5 mg TID@0900,1300,1700 PO Last administered on 09:34; Start 12/21/17 at 10:00; Stop 01/08/18 at 09:51; Status DC Artificial Tears (Artificial Tears) 1 drop PRN Q15MIN PRN OU DRY EYE Last administered on 5/15/18at 15:57; Start 12/21/17 at 16:00 Polyethylene Glycol (miraLAX) 17 gm DAILY PO Last administered on 01/07/18 08: 32; Start 12/23/17 at 09:00 Clozapine (Clozaril) 100 mg QHS PO Last administered on 12/27/17at 20:22; Start 12/22/17 at 21:00; Stop 12/28/17 at 16:39; Status DC Divalproex Sodium (Depakote Er) 1,750 mg QHS PO ; Start 12/25/17 at 21:00; Stop 12/25/17 at 21:00; Status DC Divalproex Sodium (Depakote Er) 1,500 mg QHS PO Last administered on 01/08/18 19:41; Start 12/25/17 at 21:00 Divalproex Sodium (Depakote Er) 250 mg QHS PO Last administered on 01/08/18at 19: 40; Start 12/25/17 at 21:00 Clozapine (Clozaril) 125 mg QHS PO ; Start 12/28/17 at 21:00; Status UNV Clozapine (Clozaril) 25 mg QHS PO Last administered on 01/04/18at 19:44; Start 12/28/17 at 21:00; Stop 01/04/18 at 19:51; Status DC Clozapine (Clozaril) 100 mg QHS PO Last administered on 01/08/18at 19:42; Start 12/28/17 at 21:00 Albuterol Sulfate (Ventolin) 2.5 mg PRN QID PRN NEB SHORTNESS OF BREATH; Start 01/01/18 at 04:45 Clozapine (Clozaril) 50 mg QHS PO Last administered on 01/08/18at 19:42; Start at 21:00 Haloperidol (Haldol) 15 mg HS PO Last administered on 01/06/18 20:05; Start at 21:00; Stop 01/06/18 at 21:01; Status DC Haloperidol (Haldol) 10 mg DAILY PO Last administered on 01/08/18at 09:34; Start 01/05/18 at 09:00; Stop 01/08/18 at 09:51; Status DC Haloperidol (Haldol) 10 mg HS PO Last administered on 5/31/18at 20:18; Start at 21:00; Stop 01/08/18 at 09:51; Status DC Insulin Glargine (Lantus) 20 units DAILYWBKFT SQ Last administered on 01/08/18at 09:36; Start 01/07/18 at 08:00 Trazodone HCl (Desyrel) 50 mg PRN QHS PRN PO INSOMNIA, MAY REPEAT X1; Start 01/08/18 at 19:30 Active Scripts Active Reported Duoneb 0.5-3(2.5) Mg/3 Ml (Albuterol/Ipratropium) 3 Ml Ampul.neb 3 Ml NEB RTQID Trazodone Hcl 50 Mg Tablet 12.5 Mg PO TID@0900,1300,1700 Fluvoxamine Maleate 50 Mg Tablet 50 Mg PO QHS Clozaril (Clozapine) 25 Mg Tablet 75 Mg PO QHS Miralax (Polyethylene Glycol 3350) 17 Gm Powd.pack 1 Packet PO DAILY Zyprexa Zydis (Olanzapine) 5 Mg Tab.rapdis 5 Mg PO PRN Q2HR PRN Depakote Er (Divalproex Sodium) 500 Mg Tab.er.24h 1,500 Tab PO QHS Culturelle (Lactobacillus Rhamnosus Gg) 1 Each Cap.sprink 1 Each PO BID Multi Vitamin Daily (Multivitamin) 1 Each Tablet 1 Tab PO DAILY Simethicone 125 Mg Capsule 120 Mg PO TID Senna Lax (Sennosides) 8.6 Mg Tablet 8.6 Mg PO BID Potassium Chloride 10 Meq Tablet.er 10 Meq PO DAILYWBKFT Actos (Pioglitazone Hcl) 30 Mg Tablet 30 Mg PO DAILY Pepcid (Famotidine) 20 Mg Tablet 20 Mg PO BID Novolog Flexpen (Insulin Aspart) 100 Unit/1 Ml Insuln.pen 8 Units SQ DAILYBFRLUN Novolog Flexpen (Insulin Aspart) 100 Unit/1 Ml Insuln.pen 4 Units SQ DAILYWBKFT Novolog Flexpen (Insulin Aspart) 100 Unit/1 Ml Insuln.pen 10 Unit SQ DAILYBFRSUP Mapap (Acetaminophen) 500 Mg Tablet 500 Mg PO PRN Q6HRS PRN Magnesium Oxide 400 Mg Tablet 400 Mg PO DAILY Lisinopril 20 Mg Tablet 20 Mg PO DAILY Levemir Flextouch (Insulin Detemir) 100 Unit/1 Ml Insuln.pen 26 Units SQ DAILYWBKFT Levemir Flextouch (Insulin Detemir) 100 Unit/1 Ml Insuln.pen 16 Units SQ HS Lasix (Furosemide) 40 Mg Tablet 40 Mg PO DAILY Haloperidol 10 Mg Tablet 15 Mg PO BID Haloperidol Lactate 5 Mg/1 Ml Vial 5 Mg IM PRN Q4HRS PRN Gemfibrozil 600 Mg Tablet 600 Mg PO BID Gabapentin 300 Mg Capsule 300 Mg PO TID Flonase Allergy Relief (Fluticasone Propionate) 9.9 Ml Aurelia.susp 2 Sprays NS PRN PRN Docusate Sodium 100 Mg Capsule 100 Mg PO DAILY Docusate Sodium 100 Mg Capsule 100 Mg PO PRN DAILY PRN Clonidine Hcl 0.1 Mg Tablet 0.1 Mg PO HS Cetirizine Hcl 10 Mg Tablet 10 Mg PO DAILY Aspirin Ec (Aspirin) 81 Mg Tablet.dr 81 Mg PO DAILYWBKFT Amlodipine Besylate 10 Mg Tablet 10 Mg PO DAILY Abilify (Aripiprazole) 15 Mg Tablet 10 Mg PO BID I have reviewed the current psychotropics carefully including drug interactions. Risk benefit ratio favors no change other than as noted in my dictated progress note. Diagnosis: Problems: (1) Anxiety disorder (2) Bipolar affective, mixed, sev w/ psych (3) Schizoaffective disorder, chronic condition with acute exacerbation (4) Schizophrenia, disorganized, subchronic with acute exacerbation JASS HUNG MD Jan 08, 2018 20:41
--- NOTE | 2018-01-09 01:46 | PN ---
DATE: 01/06/2018 PSYCHIATRIC PROGRESS NOTE This is a late entry for 01/06/2018, covers elements not covered in my initial note of 01/06/2018. SUBJECTIVE: I met with the patient in the evening. Overall, the patient was somewhat groggy, tired in the morning, not able to walk, blood sugar was low, rude to staff. Defer medical management to Dr. Bishop. REVIEW OF SYSTEMS: Positive for some tiredness. No CV, , pulmonary, eye, ENT system symptoms on review. MENTAL STATUS EXAM: Oriented to herself and situation. Speech, often responses monosyllabic. Abstraction fair, computation impaired, language function intact, attention span short. Mood and affect somewhat withdrawn. LABORATORY DATA: Reviewed. IMPRESSION: Schizoaffective disorder, bipolar type, mixed with psychotic features, in partial remission. Rest unchanged. PLAN: We will reduce bedtime Haldol 15 mg down to 10 mg on 01/07/2018. Continue rest unchanged. MAN Prosper HUNG MD DR: KATIANA/alicia JOB#: [id number] / [id number]
--- NOTE | 2018-01-09 01:53 | PN ---
DATE: 01/07/2018 PSYCHIATRIC PROGRESS NOTE This is a late entry for 01/07/2018, covers elements not covered in my initial note of 01/07/2018. SUBJECTIVE: I met with the patient in the evening, staffed at a treatment team meeting with the entire team in the morning. We reviewed the patient's history at length and progress, discharge plans at the treatment team meeting. She has been somewhat drowsy in the morning. REVIEW OF SYSTEMS: Positive for tiredness. No CV, , pulmonary, eye, ENT system symptoms on review. We have been gradually reducing her Haldol and I have discontinued the Abilify since the Clozaril was initiated. MENTAL STATUS EXAM: Oriented to herself and situation. Speech moderate latency, often responses monosyllabic. Abstraction fair, computation impaired, language function intact, attention span short. Mood and affect somewhat withdrawn. LABORATORY DATA: Reviewed. IMPRESSION: Schizoaffective disorder, bipolar type, mixed with psychotic features, in partial remission. PLAN: Continue current psychotropics. Reduce the Haldol, may reduce the daytime, trazodone scheduled as well. MAN Prosper HUNG MD DR: KATIANA/alicia JOB#: [id number] / [id number]
[2018-01-09 06:16] VITALS: BP 119/58
[2018-01-09] MEDS: GEMFIBROZIL 600 MG TABLET. PO SCH ×2 (07:29→20:11)
[2018-01-09] MEDS: POLYETHYLENE GLYCOL 3350 17 GM PACKET. PO SCH (07:29)
[2018-01-09] MEDS: MULTIVITAMIN with MINERAL TABLET. PO SCH (07:30)
[2018-01-09] MEDS: CETIRIZINE HCL 10 MG TABLET PO SCH (07:30)
[2018-01-09] MEDS: POTASSIUM CHLORIDE 10 MEQ TABLET.ER. PO SCH (07:30)
[2018-01-09] MEDS: SENNOSIDES 8.6 MG TABLET PO SCH ×2 (07:30→20:11)
[2018-01-09] MEDS: GABAPENTIN 300 MG CAPSULE. PO SCH ×3 (07:30→20:11)
[2018-01-09] MEDS: FAMOTIDINE 20 MG TABLET PO SCH ×2 (07:30→20:11)
[2018-01-09] MEDS: PIOGLITAZONE 15 MG TABLET. PO SCH (07:30)
[2018-01-09] MEDS: LACTOBACILLUS RHAMNOSUS GG 1 CAPSULE. PO SCH ×2 (07:30→20:10)
[2018-01-09] MEDS: MAGNESIUM OXIDE 400 MG TABLET PO SCH (07:32)
[2018-01-09] MEDS: FUROSEMIDE 40 MG TABLET PO SCH (07:32)
[2018-01-09] MEDS: DOCUSATE SODIUM 100 MG CAPSULE PO SCH (07:33)
[2018-01-09] MEDS: SIMETHICONE 80 MG TAB.CHEW PO SCH ×3 (07:34→20:10)
[2018-01-09] MEDS: amLODIPine BESYLATE 10 MG TABLET PO SCH (07:34)
[2018-01-09] MEDS: LISINOPRIL 20 MG TABLET PO SCH (07:35)
[2018-01-09] MEDS: INSULIN LISPRO 300 UNITS/3 ML INSULN.PEN. SQ SCH ×3 (08:03→17:23)
[2018-01-09] MEDS: INSULIN GLARGINE 300 UNITS/3 ML INSULN.PEN. SQ SCH ×2 (08:05→20:12)
[2018-01-09 16:36] VITALS: BP 168/74
[2018-01-09] MEDS: cloZAPine 25 MG TABLET PO SCH (20:09)
[2018-01-09] MEDS: cloNIDine HCL 0.1 MG TABLET PO SCH (20:09)
[2018-01-09] MEDS: cloZAPine 100 MG TABLET PO SCH (20:09)
[2018-01-09] MEDS: DIVALPROEX ER 250 MG TAB.ER.24H. PO SCH (20:10)
[2018-01-09] MEDS: DIVALPROEX ER 500 MG TAB.ER.24H PO SCH (20:10)
--- NOTE | 2018-01-09 22:06 | PDOC ---
Exam Note: Tay Note: Please also refer to the separate dictated note~for this date of service dictated separately.~Patient seen individually. Discussed the patient with Nursing staff reviewed the chart.~Reviewed interim history and current functioning. Reviewed vital signs,~Labs/ Radiology~and current medications noted below. Continue current treatment with the changes noted in the dictated addendum note Assessment: Vital Signs: Vital Signs Date Time Temp Pulse Resp B/P (MAP) Pulse Ox O2 Delivery O2 Flow Rate FiO2 01/09/18 20:09 95 168/74 01/09/18 16:36 97.2 18 96 01/08/18 06:06 Room Air I&O Intake and Output 01/09/18 07:00 Intake Total 480 ml Balance 480 ml Intake Oral 480 ml Labs: Laboratory Tests Test 01/09/18 07:59 01/09/18 11:47 01/09/18 16:57 Glucose (Fingerstick) 111 mg/dL (70-99) H 242 mg/dL (70-99) H 109 mg/dL (70-99) H Current Medications: Meds: Current Medications Acetaminophen (Tylenol) 650 mg PRN Q6HRS PRN PO PAIN / TEMP; Start 12/20/17 at 23:30; Status Cancel Multi-Ingredient Ointment (Analgesic [place]) 1 caridad PRN QID PRN TP MUSCLE PAIN; Start 12/20/17 at 23:30 Al Hydroxide/Mg Hydroxide (Mylanta Plus Xs) 15 ml PRN AFTMEALHC PRN PO DYSPEPSIA; Start 12/20/17 at 23:30 Magnesium Hydroxide (Milk Of Magnesia) 2,400 mg PRN QHS PRN PO CONSTIPATION; Start 12/20/17 at 23:30 Olanzapine (ZyPREXA ZYDIS) 5 mg PRN Q2HR PRN PO PSYCHOSIS; Start 12/21/17 at 01 :00 Aripiprazole (Abilify) 10 mg BID PO Last administered on 12/26/17at 08:44; Start 12/21/17 at 09:00; Stop 12/26/17 at 19:47; Status DC Clozapine (Clozaril) 75 mg QHS PO Last administered on 12/21/17at 20:40; Start 12/21/17 at 21:00; Stop 12/22/17 at 19:20; Status DC Divalproex Sodium (Depakote Er) 1,500 mg QHS PO Last administered on 12/24/17 20:23; Start 12/21/17 at 21:00; Stop 12/25/17 at 19:22; Status DC Fluvoxamine Maleate (Luvox) 50 mg QHS PO Last administered on 01/09/18 20:11; Start 12/21/17 at 21:00 Haloperidol (Haldol) 15 mg BID PO Last administered on 01/04/18at 19:47; Start 12/21/17 at 09:00; Stop 01/04/18 at 19:51; Status DC Haloperidol Lactate (Haldol) 5 mg PRN Q4HRS PRN IM AGITATION; Start 12/21/17 at 01:00; Stop 12/21/17 at 01:43; Status DC Clonidine HCl (Catapres) 0.1 mg HS PO Last administered on 01/09/18 20:09; Start 12/21/17 at 21:00 Gabapentin (Neurontin) 300 mg TID PO Last administered on 01/09/18 20:11; Start 12/21/17 at 10:00 Insulin Human Lispro (HumaLOG) 4 units DAILYWBKFT SQ Last administered on 08:03; Start 12/22/17 at 08:00 Insulin Human Lispro (HumaLOG) 8 units DAILYBFRLUN SQ Last administered on 12:57; Start 12/21/17 at 11:30 Insulin Human Lispro (HumaLOG) 10 units DAILYBFRSUP SQ Last administered on 01/09 17:23; Start 12/21/17 at 17:00 Albuterol/ Ipratropium (Duoneb) 3 ml RTQID NEB Last administered on 01/01/18 04:10; Start 12/21/17 at 12:00; Stop 01/01/18 at 04:40; Status DC Lactobacillus Rhamnosus (Culturelle) 1 cap BID PO Last administered on at 20:10; Start 12/21/17 at 10:00 Lisinopril (Prinivil) 20 mg DAILY PO Last administered on 01/07/18at 08:39; Start 12/21/17 at 10:00 Acetaminophen (Tylenol) 500 mg PRN Q6HRS PRN PO PAIN; Start 12/21/17 at 09:30 Amlodipine Besylate (Norvasc) 10 mg DAILY PO Last administered on 01/07/18 08: 39; Start 12/21/17 at 10:00 Cetirizine HCl (ZyrTEC) 10 mg DAILY PO Last administered on 01/09/18 07:30; Start 12/21/17 at 10:00 Docusate Sodium (Colace) 100 mg DAILY PO Last administered on 01/09/18 07:33; Start 12/21/17 at 10:00 Docusate Sodium (Colace) 100 mg PRN DAILY PRN PO CONSTIPATION; Start 12/21/17 at 10:00 Famotidine (Pepcid) 20 mg BID PO Last administered on 01/09/18 20:11; Start at 10:00 Fluticasone Propionate (Flonase) 2 spray PRN DAILY PRN NS ALLERGIES; Start at 09:30 Furosemide (Lasix) 40 mg DAILY PO Last administered on 01/09/18 07:32; Start at 10:00 Gemfibrozil (Lopid) 600 mg BID PO Last administered on 01/09/18 20:11; Start at 10:00 Insulin Glargine (Lantus) 16 units HS SQ Last administered on 01/09/18 20:12; Start 12/21/17 at 21:00 Insulin Glargine (Lantus) 26 units DAILYWBKFT SQ Last administered on at 09:05; Start 12/22/17 at 08:00; Stop 01/06/18 at 18:58; Status DC Magnesium Oxide (Magnesium Oxide) 400 mg DAILY PO Last administered on 07:32; Start 12/21/17 at 10:00 Multivitamins/ Calcium (Thera-M Plus) 1 tab DAILY PO Last administered on 07:30; Start 12/21/17 at 10:00 Pioglitazone HCl (Actos) 30 mg DAILY PO Last administered on 01/09/18 07:30; Start 12/21/17 at 10:00 Polyethylene Glycol (miraLAX) 1 gm DAILY PO Last administered on 12/21/17at 10: 12; Start 12/21/17 at 10:00; Stop 12/22/17 at 09:12; Status DC Potassium Chloride (Klor-Con) 10 meq DAILYWBKFT PO Last administered on at 07:30; Start 12/22/17 at 10:00 Sennosides (Senna) 8.6 mg BID PO Last administered on 01/09/18 20:11; Start at 10:00 Simethicone (Gas-X) 120 mg TID PO Last administered on 01/09/18 20:10; Start at 10:00 Trazodone HCl (Desyrel) 12.5 mg TID@0900,1300,1700 PO Last administered on 09:34; Start 12/21/17 at 10:00; Stop 01/08/18 at 09:51; Status DC Artificial Tears (Artificial Tears) 1 drop PRN Q15MIN PRN OU DRY EYE Last administered on 12/22/17at 15:57; Start 12/21/17 at 16:00 Polyethylene Glycol (miraLAX) 17 gm DAILY PO Last administered on 01/09/18 07: 29; Start 12/23/17 at 09:00 Clozapine (Clozaril) 100 mg QHS PO Last administered on 12/27/17 20:22; Start 12/22/17 at 21:00; Stop 12/28/17 at 16:39; Status DC Divalproex Sodium (Depakote Er) 1,750 mg QHS PO ; Start 12/25/17 at 21:00; Stop 12/25/17 at 21:00; Status DC Divalproex Sodium (Depakote Er) 1,500 mg QHS PO Last administered on 01/09/18 20:10; Start 12/25/17 at 21:00 Divalproex Sodium (Depakote Er) 250 mg QHS PO Last administered on 01/09/18 20: 10; Start 12/25/17 at 21:00 Clozapine (Clozaril) 125 mg QHS PO ; Start 12/28/17 at 21:00; Status UNV Clozapine (Clozaril) 25 mg QHS PO Last administered on 5/28/18at 19:44; Start 12/28/17 at 21:00; Stop 01/04/18 at 19:51; Status DC Clozapine (Clozaril) 100 mg QHS PO Last administered on 01/09/18at 20:09; Start 12/28/17 at 21:00 Albuterol Sulfate (Ventolin) 2.5 mg PRN QID PRN NEB SHORTNESS OF BREATH; Start 01/01/18 at 04:45 Clozapine (Clozaril) 50 mg QHS PO Last administered on 01/09/18at 20:09; Start at 21:00 Haloperidol (Haldol) 15 mg HS PO Last administered on 01/06/18at 20:05; Start at 21:00; Stop 01/06/18 at 21:01; Status DC Haloperidol (Haldol) 10 mg DAILY PO Last administered on 01/08/18at 09:34; Start 01/05/18 at 09:00; Stop 01/08/18 at 09:51; Status DC Haloperidol (Haldol) 10 mg HS PO Last administered on 01/07/18at 20:18; Start at 21:00; Stop 01/08/18 at 09:51; Status DC Insulin Glargine (Lantus) 20 units DAILYWBKFT SQ Last administered on 01/09/18at 08:05; Start 01/07/18 at 08:00 Trazodone HCl (Desyrel) 50 mg PRN QHS PRN PO INSOMNIA, MAY REPEAT X1; Start 01/08/18 at 19:30 Active Scripts Active Reported Duoneb 0.5-3(2.5) Mg/3 Ml (Albuterol/Ipratropium) 3 Ml Ampul.neb 3 Ml NEB RTQID Trazodone Hcl 50 Mg Tablet 12.5 Mg PO TID@0900,1300,1700 Fluvoxamine Maleate 50 Mg Tablet 50 Mg PO QHS Clozaril (Clozapine) 25 Mg Tablet 75 Mg PO QHS Miralax (Polyethylene Glycol 3350) 17 Gm Powd.pack 1 Packet PO DAILY Zyprexa Zydis (Olanzapine) 5 Mg Tab.rapdis 5 Mg PO PRN Q2HR PRN Depakote Er (Divalproex Sodium) 500 Mg Tab.er.24h 1,500 Tab PO QHS Culturelle (Lactobacillus Rhamnosus Gg) 1 Each Cap.sprink 1 Each PO BID Multi Vitamin Daily (Multivitamin) 1 Each Tablet 1 Tab PO DAILY Simethicone 125 Mg Capsule 120 Mg PO TID Senna Lax (Sennosides) 8.6 Mg Tablet 8.6 Mg PO BID Potassium Chloride 10 Meq Tablet.er 10 Meq PO DAILYWBKFT Actos (Pioglitazone Hcl) 30 Mg Tablet 30 Mg PO DAILY Pepcid (Famotidine) 20 Mg Tablet 20 Mg PO BID Novolog Flexpen (Insulin Aspart) 100 Unit/1 Ml Insuln.pen 8 Units SQ DAILYBFRLUN Novolog Flexpen (Insulin Aspart) 100 Unit/1 Ml Insuln.pen 4 Units SQ DAILYWBKFT Novolog Flexpen (Insulin Aspart) 100 Unit/1 Ml Insuln.pen 10 Unit SQ DAILYBFRSUP Mapap (Acetaminophen) 500 Mg Tablet 500 Mg PO PRN Q6HRS PRN Magnesium Oxide 400 Mg Tablet 400 Mg PO DAILY Lisinopril 20 Mg Tablet 20 Mg PO DAILY Levemir Flextouch (Insulin Detemir) 100 Unit/1 Ml Insuln.pen 26 Units SQ DAILYWBKFT Levemir Flextouch (Insulin Detemir) 100 Unit/1 Ml Insuln.pen 16 Units SQ HS Lasix (Furosemide) 40 Mg Tablet 40 Mg PO DAILY Haloperidol 10 Mg Tablet 15 Mg PO BID Haloperidol Lactate 5 Mg/1 Ml Vial 5 Mg IM PRN Q4HRS PRN Gemfibrozil 600 Mg Tablet 600 Mg PO BID Gabapentin 300 Mg Capsule 300 Mg PO TID Flonase Allergy Relief (Fluticasone Propionate) 9.9 Ml [place].susp 2 Sprays NS PRN PRN Docusate Sodium 100 Mg Capsule 100 Mg PO DAILY Docusate Sodium 100 Mg Capsule 100 Mg PO PRN DAILY PRN Clonidine Hcl 0.1 Mg Tablet 0.1 Mg PO HS Cetirizine Hcl 10 Mg Tablet 10 Mg PO DAILY Aspirin Ec (Aspirin) 81 Mg Tablet.dr 81 Mg PO DAILYWBKFT Amlodipine Besylate 10 Mg Tablet 10 Mg PO DAILY Abilify (Aripiprazole) 15 Mg Tablet 10 Mg PO BID I have reviewed the current psychotropics carefully including drug interactions. Risk benefit ratio favors no change other than as noted in my dictated progress note. Diagnosis: Problems: (1) Anxiety disorder (2) Bipolar affective, mixed, sev w/ psych (3) Schizoaffective disorder, chronic condition with acute exacerbation (4) Schizophrenia, disorganized, subchronic with acute exacerbation JASS HUNG MD Jan 09, 2018 22:06
[2018-01-10 05:51] VITALS: BP 123/68
[2018-01-10] MEDS: POTASSIUM CHLORIDE 10 MEQ TABLET.ER. PO SCH (07:32)
[2018-01-10] MEDS: POLYETHYLENE GLYCOL 3350 17 GM PACKET. PO SCH (07:32)
[2018-01-10] MEDS: DOCUSATE SODIUM 100 MG CAPSULE PO SCH (07:32)
[2018-01-10] MEDS: MAGNESIUM OXIDE 400 MG TABLET PO SCH (07:33)
[2018-01-10] MEDS: amLODIPine BESYLATE 10 MG TABLET PO SCH (07:33)
[2018-01-10] MEDS: FAMOTIDINE 20 MG TABLET PO SCH ×2 (07:34→20:06)
[2018-01-10] MEDS: LISINOPRIL 20 MG TABLET PO SCH (07:34)
[2018-01-10] MEDS: GEMFIBROZIL 600 MG TABLET. PO SCH ×2 (07:34→20:07)
[2018-01-10] MEDS: FUROSEMIDE 40 MG TABLET PO SCH (07:34)
[2018-01-10] MEDS: CETIRIZINE HCL 10 MG TABLET PO SCH (07:34)
[2018-01-10] MEDS: SIMETHICONE 80 MG TAB.CHEW PO SCH ×3 (07:34→20:06)
[2018-01-10] MEDS: SENNOSIDES 8.6 MG TABLET PO SCH ×2 (07:34→20:06)
[2018-01-10] MEDS: GABAPENTIN 300 MG CAPSULE. PO SCH ×3 (07:34→20:06)
[2018-01-10] MEDS: LACTOBACILLUS RHAMNOSUS GG 1 CAPSULE. PO SCH ×2 (07:34→20:06)
[2018-01-10] MEDS: MULTIVITAMIN with MINERAL TABLET. PO SCH (07:34)
[2018-01-10] MEDS: PIOGLITAZONE 15 MG TABLET. PO SCH (07:35)
[2018-01-10] MEDS: INSULIN GLARGINE 300 UNITS/3 ML INSULN.PEN. SQ SCH ×2 (07:54→20:12)
[2018-01-10] MEDS: INSULIN LISPRO 300 UNITS/3 ML INSULN.PEN. SQ SCH ×3 (07:54→18:22)
[2018-01-10 16:30] VITALS: BP 151/95
--- NOTE | 2018-01-10 19:57 | PDOC ---
Exam Note: Tay Note: Please also refer to the separate dictated note~for this date of service dictated separately.~Patient seen individually. Discussed the patient with Nursing staff reviewed the chart.~Reviewed interim history and current functioning. Reviewed vital signs,~Labs/ Radiology~and current medications noted below. Continue current treatment with the changes noted in the dictated addendum note Assessment: Vital Signs: Vital Signs Date Time Temp Pulse Resp B/P (MAP) Pulse Ox O2 Delivery O2 Flow Rate FiO2 01/10/18 16:30 97.2 91 20 151/95 (113) 100 01/08/18 06:06 Room Air I&O Intake and Output 01/10/18 07:00 Intake Total 800 ml Balance 800 ml Intake Oral 800 ml Labs: Laboratory Tests Test 01/10/18 07:27 01/10/18 11:50 01/10/18 17:02 Glucose (Fingerstick) 115 mg/dL (70-99) H 168 mg/dL (70-99) H 281 mg/dL (70-99) H Current Medications: Meds: Current Medications Acetaminophen (Tylenol) 650 mg PRN Q6HRS PRN PO PAIN / TEMP; Start 12/20/17 at 23:30; Status Cancel Multi-Ingredient Ointment (Analgesic [place]) 1 caridad PRN QID PRN TP MUSCLE PAIN; Start 12/20/17 at 23:30 Al Hydroxide/Mg Hydroxide (Mylanta Plus Xs) 15 ml PRN AFTMEALHC PRN PO DYSPEPSIA; Start 12/20/17 at 23:30 Magnesium Hydroxide (Milk Of Magnesia) 2,400 mg PRN QHS PRN PO CONSTIPATION; Start 12/20/17 at 23:30 Olanzapine (ZyPREXA ZYDIS) 5 mg PRN Q2HR PRN PO PSYCHOSIS; Start 12/21/17 at 01 :00 Aripiprazole (Abilify) 10 mg BID PO Last administered on 12/26/17at 08:44; Start 12/21/17 at 09:00; Stop 12/26/17 at 19:47; Status DC Clozapine (Clozaril) 75 mg QHS PO Last administered on 12/21/17at 20:40; Start 12/21/17 at 21:00; Stop 12/22/17 at 19:20; Status DC Divalproex Sodium (Depakote Er) 1,500 mg QHS PO Last administered on 12/24/17 20:23; Start 12/21/17 at 21:00; Stop 12/25/17 at 19:22; Status DC Fluvoxamine Maleate (Luvox) 50 mg QHS PO Last administered on 01/09/18 20:11; Start 12/21/17 at 21:00 Haloperidol (Haldol) 15 mg BID PO Last administered on 01/04/18at 19:47; Start 12/21/17 at 09:00; Stop 01/04/18 at 19:51; Status DC Haloperidol Lactate (Haldol) 5 mg PRN Q4HRS PRN IM AGITATION; Start 12/21/17 at 01:00; Stop 12/21/17 at 01:43; Status DC Clonidine HCl (Catapres) 0.1 mg HS PO Last administered on 01/09/18 20:09; Start 12/21/17 at 21:00 Gabapentin (Neurontin) 300 mg TID PO Last administered on 01/10/18 13:13; Start 12/21/17 at 10:00 Insulin Human Lispro (HumaLOG) 4 units DAILYWBKFT SQ Last administered on 07:54; Start 12/22/17 at 08:00 Insulin Human Lispro (HumaLOG) 8 units DAILYBFRLUN SQ Last administered on 11:30; Start 12/21/17 at 11:30 Insulin Human Lispro (HumaLOG) 10 units DAILYBFRSUP SQ Last administered on 01/10 18:22; Start 12/21/17 at 17:00 Albuterol/ Ipratropium (Duoneb) 3 ml RTQID NEB Last administered on 01/01/18 04:10; Start 12/21/17 at 12:00; Stop 01/01/18 at 04:40; Status DC Lactobacillus Rhamnosus (Culturelle) 1 cap BID PO Last administered on 07:34; Start 12/21/17 at 10:00 Lisinopril (Prinivil) 20 mg DAILY PO Last administered on 01/10/18 07:34; Start 12/21/17 at 10:00 Acetaminophen (Tylenol) 500 mg PRN Q6HRS PRN PO PAIN; Start 12/21/17 at 09:30 Amlodipine Besylate (Norvasc) 10 mg DAILY PO Last administered on 01/10/18 07: 33; Start 12/21/17 at 10:00 Cetirizine HCl (ZyrTEC) 10 mg DAILY PO Last administered on 01/10/18 07:34; Start 12/21/17 at 10:00 Docusate Sodium (Colace) 100 mg DAILY PO Last administered on 01/10/18 07:32; Start 12/21/17 at 10:00 Docusate Sodium (Colace) 100 mg PRN DAILY PRN PO CONSTIPATION; Start 12/21/17 at 10:00 Famotidine (Pepcid) 20 mg BID PO Last administered on 01/10/18 07:34; Start at 10:00 Fluticasone Propionate (Flonase) 2 spray PRN DAILY PRN NS ALLERGIES; Start at 09:30 Furosemide (Lasix) 40 mg DAILY PO Last administered on 01/10/18 07:34; Start at 10:00 Gemfibrozil (Lopid) 600 mg BID PO Last administered on 01/10/18 07:34; Start at 10:00 Insulin Glargine (Lantus) 16 units HS SQ Last administered on 01/09/18 20:12; Start 12/21/17 at 21:00 Insulin Glargine (Lantus) 26 units DAILYWBKFT SQ Last administered on at 09:05; Start 12/22/17 at 08:00; Stop 01/06/18 at 18:58; Status DC Magnesium Oxide (Magnesium Oxide) 400 mg DAILY PO Last administered on 07:33; Start 12/21/17 at 10:00 Multivitamins/ Calcium (Thera-M Plus) 1 tab DAILY PO Last administered on 07:34; Start 12/21/17 at 10:00 Pioglitazone HCl (Actos) 30 mg DAILY PO Last administered on 01/10/18 07:35; Start 12/21/17 at 10:00 Polyethylene Glycol (miraLAX) 1 gm DAILY PO Last administered on 5/14/18at 10: 12; Start 12/21/17 at 10:00; Stop 12/22/17 at 09:12; Status DC Potassium Chloride (Klor-Con) 10 meq DAILYWBKFT PO Last administered on 07:32; Start 12/22/17 at 10:00 Sennosides (Senna) 8.6 mg BID PO Last administered on 01/10/18 07:34; Start at 10:00 Simethicone (Gas-X) 120 mg TID PO Last administered on 01/10/18 13:12; Start at 10:00 Trazodone HCl (Desyrel) 12.5 mg TID@0900,1300,1700 PO Last administered on 09:34; Start 12/21/17 at 10:00; Stop 01/08/18 at 09:51; Status DC Artificial Tears (Artificial Tears) 1 drop PRN Q15MIN PRN OU DRY EYE Last administered on 12/22/17at 15:57; Start 12/21/17 at 16:00 Polyethylene Glycol (miraLAX) 17 gm DAILY PO Last administered on 01/10/18 07: 32; Start 12/23/17 at 09:00 Clozapine (Clozaril) 100 mg QHS PO Last administered on 12/27/17at 20:22; Start 12/22/17 at 21:00; Stop 12/28/17 at 16:39; Status DC Divalproex Sodium (Depakote Er) 1,750 mg QHS PO ; Start 12/25/17 at 21:00; Stop 12/25/17 at 21:00; Status DC Divalproex Sodium (Depakote Er) 1,500 mg QHS PO Last administered on 01/09/18 20:10; Start 12/25/17 at 21:00 Divalproex Sodium (Depakote Er) 250 mg QHS PO Last administered on 01/09/18 20: 10; Start 12/25/17 at 21:00; Stop 01/10/18 at 15:01; Status DC Clozapine (Clozaril) 125 mg QHS PO ; Start 12/28/17 at 21:00; Status UNV Clozapine (Clozaril) 25 mg QHS PO Last administered on 01/04/18at 19:44; Start 12/28/17 at 21:00; Stop 01/04/18 at 19:51; Status DC Clozapine (Clozaril) 100 mg QHS PO Last administered on 01/09/18at 20:09; Start 12/28/17 at 21:00 Albuterol Sulfate (Ventolin) 2.5 mg PRN QID PRN NEB SHORTNESS OF BREATH; Start 01/01/18 at 04:45 Clozapine (Clozaril) 50 mg QHS PO Last administered on 01/09/18at 20:09; Start at 21:00 Haloperidol (Haldol) 15 mg HS PO Last administered on 01/06/18at 20:05; Start at 21:00; Stop 01/06/18 at 21:01; Status DC Haloperidol (Haldol) 10 mg DAILY PO Last administered on 01/08/18at 09:34; Start 01/05/18 at 09:00; Stop 01/08/18 at 09:51; Status DC Haloperidol (Haldol) 10 mg HS PO Last administered on 01/07/18at 20:18; Start at 21:00; Stop 01/08/18 at 09:51; Status DC Insulin Glargine (Lantus) 20 units DAILYWBKFT SQ Last administered on 01/10/18at 07:54; Start 01/07/18 at 08:00 Trazodone HCl (Desyrel) 50 mg PRN QHS PRN PO INSOMNIA, MAY REPEAT X1; Start 01/08/18 at 19:30 Active Scripts Active Reported Duoneb 0.5-3(2.5) Mg/3 Ml (Albuterol/Ipratropium) 3 Ml Ampul.neb 3 Ml NEB RTQID Trazodone Hcl 50 Mg Tablet 12.5 Mg PO TID@0900,1300,1700 Fluvoxamine Maleate 50 Mg Tablet 50 Mg PO QHS Clozaril (Clozapine) 25 Mg Tablet 75 Mg PO QHS Miralax (Polyethylene Glycol 3350) 17 Gm Powd.pack 1 Packet PO DAILY Zyprexa Zydis (Olanzapine) 5 Mg Tab.rapdis 5 Mg PO PRN Q2HR PRN Depakote Er (Divalproex Sodium) 500 Mg Tab.er.24h 1,500 Tab PO QHS Culturelle (Lactobacillus Rhamnosus Gg) 1 Each Cap.sprink 1 Each PO BID Multi Vitamin Daily (Multivitamin) 1 Each Tablet 1 Tab PO DAILY Simethicone 125 Mg Capsule 120 Mg PO TID Senna Lax (Sennosides) 8.6 Mg Tablet 8.6 Mg PO BID Potassium Chloride 10 Meq Tablet.er 10 Meq PO DAILYWBKFT Actos (Pioglitazone Hcl) 30 Mg Tablet 30 Mg PO DAILY Pepcid (Famotidine) 20 Mg Tablet 20 Mg PO BID Novolog Flexpen (Insulin Aspart) 100 Unit/1 Ml Insuln.pen 8 Units SQ DAILYBFRLUN Novolog Flexpen (Insulin Aspart) 100 Unit/1 Ml Insuln.pen 4 Units SQ DAILYWBKFT Novolog Flexpen (Insulin Aspart) 100 Unit/1 Ml Insuln.pen 10 Unit SQ DAILYBFRSUP Mapap (Acetaminophen) 500 Mg Tablet 500 Mg PO PRN Q6HRS PRN Magnesium Oxide 400 Mg Tablet 400 Mg PO DAILY Lisinopril 20 Mg Tablet 20 Mg PO DAILY Levemir Flextouch (Insulin Detemir) 100 Unit/1 Ml Insuln.pen 26 Units SQ DAILYWBKFT Levemir Flextouch (Insulin Detemir) 100 Unit/1 Ml Insuln.pen 16 Units SQ HS Lasix (Furosemide) 40 Mg Tablet 40 Mg PO DAILY Haloperidol 10 Mg Tablet 15 Mg PO BID Haloperidol Lactate 5 Mg/1 Ml Vial 5 Mg IM PRN Q4HRS PRN Gemfibrozil 600 Mg Tablet 600 Mg PO BID Gabapentin 300 Mg Capsule 300 Mg PO TID Flonase Allergy Relief (Fluticasone Propionate) 9.9 Ml [place].susp 2 Sprays NS PRN PRN Docusate Sodium 100 Mg Capsule 100 Mg PO DAILY Docusate Sodium 100 Mg Capsule 100 Mg PO PRN DAILY PRN Clonidine Hcl 0.1 Mg Tablet 0.1 Mg PO HS Cetirizine Hcl 10 Mg Tablet 10 Mg PO DAILY Aspirin Ec (Aspirin) 81 Mg Tablet.dr 81 Mg PO DAILYWBKFT Amlodipine Besylate 10 Mg Tablet 10 Mg PO DAILY Abilify (Aripiprazole) 15 Mg Tablet 10 Mg PO BID I have reviewed the current psychotropics carefully including drug interactions. Risk benefit ratio favors no change other than as noted in my dictated progress note. Diagnosis: Problems: (1) Anxiety disorder (2) Bipolar affective, mixed, sev w/ psych (3) Schizoaffective disorder, chronic condition with acute exacerbation (4) Schizophrenia, disorganized, subchronic with acute exacerbation JASS HUNG MD Jan 10, 2018 19:57
[2018-01-10] MEDS: cloZAPine 100 MG TABLET PO SCH (20:05)
[2018-01-10] MEDS: cloZAPine 25 MG TABLET PO SCH (20:05)
[2018-01-10] MEDS: DIVALPROEX ER 500 MG TAB.ER.24H PO SCH (20:07)
[2018-01-10] MEDS: cloNIDine HCL 0.1 MG TABLET PO SCH (20:07)
[2018-01-11 05:55] VITALS: BP 121/60
[2018-01-11 07:36] LABS: BASO % 0 % (0-3); EOS # 0.4 x10^3/uL (0.0-0.7); EOS % 10 % (0-3); HEMATOCRIT 31.6 % (36.0-47.0); HEMOGLOBIN 10.2 g/dL (12.0-15.5); LYMPH # 1.8 x10^3/uL (1.0-4.8); LYMPH % 40 % (24-48); MEAN CORPUSCULAR HEMOGLOBIN 28 pg (25-35); MEAN CORPUSCULAR HGB CONC 32 g/dL (31-37); MEAN CORPUSCULAR VOLUME 86 fL (79-100); MONO # 0.6 x10^3/uL (0.0-1.1); MONO % 13 % (0-9); NEUT # 1.7 x10^3uL (1.8-7.7); NEUT % 37 % (31-73); PLATELET COUNT 248 x10^3/uL (140-400); RED BLOOD COUNT 3.68 x10^6/uL (3.50-5.40); RED CELL DISTRIBUTION WIDTH 17.2 % (11.5-14.5); WHITE BLOOD COUNT 4.6 x10^3/uL (4.0-11.0)
[2018-01-11 07:39] LABS: ALBUMIN 2.8 g/dL (3.4-5.0); ALBUMIN/GLOBULIN RATIO 0.8 (1.0-1.7); CALCIUM 8.4 mg/dL (8.5-10.1); CREATININE 1.9 mg/dL (0.6-1.0); GFR 33.9; POTASSIUM 4.6 mmol/L (3.5-5.1); TOTAL BILIRUBIN 0.2 mg/dL (0.2-1.0); TOTAL PROTEIN 6.5 g/dL (6.4-8.2)
[2018-01-11] MEDS: GEMFIBROZIL 600 MG TABLET. PO SCH ×2 (08:13→20:35)
[2018-01-11] MEDS: LACTOBACILLUS RHAMNOSUS GG 1 CAPSULE. PO SCH ×2 (08:13→20:36)
[2018-01-11] MEDS: MULTIVITAMIN with MINERAL TABLET. PO SCH (08:15)
[2018-01-11] MEDS: CETIRIZINE HCL 10 MG TABLET PO SCH (08:15)
[2018-01-11] MEDS: PIOGLITAZONE 15 MG TABLET. PO SCH (08:15)
[2018-01-11] MEDS: SIMETHICONE 80 MG TAB.CHEW PO SCH ×3 (08:15→20:36)
[2018-01-11] MEDS: SENNOSIDES 8.6 MG TABLET PO SCH ×2 (08:15→20:36)
[2018-01-11] MEDS: GABAPENTIN 300 MG CAPSULE. PO SCH ×3 (08:16→20:35)
[2018-01-11] MEDS: amLODIPine BESYLATE 10 MG TABLET PO SCH (08:16)
[2018-01-11] MEDS: POTASSIUM CHLORIDE 10 MEQ TABLET.ER. PO SCH (08:16)
[2018-01-11] MEDS: DOCUSATE SODIUM 100 MG CAPSULE PO SCH (08:16)
[2018-01-11] MEDS: LISINOPRIL 20 MG TABLET PO SCH (08:17)
[2018-01-11] MEDS: POLYETHYLENE GLYCOL 3350 17 GM PACKET. PO SCH (08:17)
[2018-01-11] MEDS: FAMOTIDINE 20 MG TABLET PO SCH ×2 (08:17→20:36)
[2018-01-11] MEDS: FUROSEMIDE 40 MG TABLET PO SCH (08:17)
[2018-01-11] MEDS: INSULIN LISPRO 300 UNITS/3 ML INSULN.PEN. SQ SCH ×3 (08:19→17:53)
[2018-01-11] MEDS: INSULIN GLARGINE 300 UNITS/3 ML INSULN.PEN. SQ SCH ×2 (08:21→20:45)
[2018-01-11] MEDS: MAGNESIUM OXIDE 400 MG TABLET PO SCH (08:26)
[2018-01-11 16:39] VITALS: BP 173/62
[2018-01-11] MEDS: cloZAPine 25 MG TABLET PO SCH (20:34)
[2018-01-11] MEDS: cloZAPine 100 MG TABLET PO SCH (20:34)
[2018-01-11] MEDS: DIVALPROEX ER 500 MG TAB.ER.24H PO SCH (20:35)
[2018-01-11] MEDS: cloNIDine HCL 0.1 MG TABLET PO SCH (20:36)
--- NOTE | 2018-01-11 20:51 | PDOC ---
Exam Note: Tay Note: Please also refer to the separate dictated note~for this date of service dictated separately.~Patient seen individually. Discussed the patient with Nursing staff reviewed the chart.~Reviewed interim history and current functioning. Reviewed vital signs,~Labs/ Radiology~and current medications noted below. Continue current treatment with the changes noted in the dictated addendum note Assessment: Vital Signs: Vital Signs Date Time Temp Pulse Resp B/P (MAP) Pulse Ox O2 Delivery O2 Flow Rate FiO2 01/11/18 20:36 86 173/62 01/11/18 16:39 96.8 16 95 Room Air 01/11/18 05:55 2.0 I&O Intake and Output 01/11/18 07:00 Intake Total 1800 ml Balance 1800 ml Intake Oral 1800 ml Labs: Laboratory Tests Test 01/11/18 07:00 01/11/18 07:52 01/11/18 11:58 01/11/18 16:56 White Blood Count 4.6 x10^3/uL (4.0-11.0) Red Blood Count 3.68 x10^6/uL (3.50-5.40) Hemoglobin 10.2 g/dL (12.0-15.5) L Hematocrit 31.6 % (36.0-47.0) L Mean Corpuscular Volume 86 fL (79-100) Mean Corpuscular Hemoglobin 28 pg (25-35) Mean Corpuscular Hemoglobin Concent 32 g/dL (31-37) Red Cell Distribution Width 17.2 % (11.5-14.5) H Platelet Count 248 x10^3/uL (140-400) Neutrophils (%) (Auto) 37 % (31-73) Lymphocytes (%) (Auto) 40 % (24-48) Monocytes (%) (Auto) 13 % (0-9) H Eosinophils (%) (Auto) 10 % (0-3) H Basophils (%) (Auto) 0 % (0-3) Neutrophils # (Auto) 1.7 x10^3uL (1.8-7.7) L Lymphocytes # (Auto) 1.8 x10^3/uL (1.0-4.8) Monocytes # (Auto) 0.6 x10^3/uL (0.0-1.1) Eosinophils # (Auto) 0.4 x10^3/uL (0.0-0.7) Basophils # (Auto) 0.0 x10^3/uL (0.0-0.2) Sodium Level 147 mmol/L (136-145) H Potassium Level 4.6 mmol/L (3.5-5.1) Chloride Level 107 mmol/L (98-107) Carbon Dioxide Level 38 mmol/L (21-32) H Anion Gap 2 (6-14) L Blood Urea Nitrogen 25 mg/dL (7-20) H Creatinine 1.9 mg/dL (0.6-1.0) H Estimated GFR (Cockcroft-Gault) 33.9 BUN/Creatinine Ratio 13 (6-20) Glucose Level 185 mg/dL (70-99) H Calcium Level 8.4 mg/dL (8.5-10.1) L Total Bilirubin 0.2 mg/dL (0.2-1.0) Aspartate Amino Transferase (AST) 12 U/L (15-37) L Alanine Aminotransferase (ALT) 18 U/L (14-59) Alkaline Phosphatase 181 U/L (46-116) H Total Protein 6.5 g/dL (6.4-8.2) Albumin 2.8 g/dL (3.4-5.0) L Albumin/Globulin Ratio 0.8 (1.0-1.7) L Glucose (Fingerstick) 151 mg/dL (70-99) H 190 mg/dL (70-99) H 197 mg/dL (70-99) H Test 01/11/18 19:16 Glucose (Fingerstick) 169 mg/dL (70-99) H Current Medications: Meds: Current Medications Acetaminophen (Tylenol) 650 mg PRN Q6HRS PRN PO PAIN / TEMP; Start 12/20/17 at 23:30; Status Cancel Multi-Ingredient Ointment (Analgesic [place]) 1 caridad PRN QID PRN TP MUSCLE PAIN; Start 12/20/17 at 23:30 Al Hydroxide/Mg Hydroxide (Mylanta Plus Xs) 15 ml PRN AFTMEALHC PRN PO DYSPEPSIA; Start 12/20/17 at 23:30 Magnesium Hydroxide (Milk Of Magnesia) 2,400 mg PRN QHS PRN PO CONSTIPATION; Start 12/20/17 at 23:30 Olanzapine (ZyPREXA ZYDIS) 5 mg PRN Q2HR PRN PO PSYCHOSIS; Start 12/21/17 at 01 :00 Aripiprazole (Abilify) 10 mg BID PO Last administered on 12/26/17at 08:44; Start 12/21/17 at 09:00; Stop 12/26/17 at 19:47; Status DC Clozapine (Clozaril) 75 mg QHS PO Last administered on 12/21/17at 20:40; Start 12/21/17 at 21:00; Stop 12/22/17 at 19:20; Status DC Divalproex Sodium (Depakote Er) 1,500 mg QHS PO Last administered on 12/24/17 20:23; Start 12/21/17 at 21:00; Stop 12/25/17 at 19:22; Status DC Fluvoxamine Maleate (Luvox) 50 mg QHS PO Last administered on 01/11/18 20:35; Start 12/21/17 at 21:00 Haloperidol (Haldol) 15 mg BID PO Last administered on 01/04/18at 19:47; Start 12/21/17 at 09:00; Stop 01/04/18 at 19:51; Status DC Haloperidol Lactate (Haldol) 5 mg PRN Q4HRS PRN IM AGITATION; Start 12/21/17 at 01:00; Stop 12/21/17 at 01:43; Status DC Clonidine HCl (Catapres) 0.1 mg HS PO Last administered on 01/11/18 20:36; Start 12/21/17 at 21:00 Gabapentin (Neurontin) 300 mg TID PO Last administered on 01/11/18 20:35; Start 12/21/17 at 10:00 Insulin Human Lispro (HumaLOG) 4 units DAILYWBKFT SQ Last administered on 08:19; Start 12/22/17 at 08:00 Insulin Human Lispro (HumaLOG) 8 units DAILYBFRLUN SQ Last administered on 13:34; Start 12/21/17 at 11:30 Insulin Human Lispro (HumaLOG) 10 units DAILYBFRSUP SQ Last administered on 01/11 17:53; Start 12/21/17 at 17:00 Albuterol/ Ipratropium (Duoneb) 3 ml RTQID NEB Last administered on 01/01/18 04:10; Start 12/21/17 at 12:00; Stop 01/01/18 at 04:40; Status DC Lactobacillus Rhamnosus (Culturelle) 1 cap BID PO Last administered on 20:36; Start 12/21/17 at 10:00 Lisinopril (Prinivil) 20 mg DAILY PO Last administered on 01/11/18 08:17; Start 12/21/17 at 10:00 Acetaminophen (Tylenol) 500 mg PRN Q6HRS PRN PO PAIN; Start 12/21/17 at 09:30 Amlodipine Besylate (Norvasc) 10 mg DAILY PO Last administered on 01/11/18 08: 16; Start 12/21/17 at 10:00 Cetirizine HCl (ZyrTEC) 10 mg DAILY PO Last administered on 01/11/18 08:15; Start 12/21/17 at 10:00 Docusate Sodium (Colace) 100 mg DAILY PO Last administered on 01/11/18 08:16; Start 12/21/17 at 10:00 Docusate Sodium (Colace) 100 mg PRN DAILY PRN PO CONSTIPATION; Start 12/21/17 at 10:00 Famotidine (Pepcid) 20 mg BID PO Last administered on 01/11/18 20:36; Start at 10:00 Fluticasone Propionate (Flonase) 2 spray PRN DAILY PRN NS ALLERGIES; Start at 09:30 Furosemide (Lasix) 40 mg DAILY PO Last administered on 01/11/18 08:17; Start at 10:00 Gemfibrozil (Lopid) 600 mg BID PO Last administered on 01/11/18 20:35; Start at 10:00 Insulin Glargine (Lantus) 16 units HS SQ Last administered on 01/11/18 20:45; Start 12/21/17 at 21:00 Insulin Glargine (Lantus) 26 units DAILYWBKFT SQ Last administered on at 09:05; Start 12/22/17 at 08:00; Stop 01/06/18 at 18:58; Status DC Magnesium Oxide (Magnesium Oxide) 400 mg DAILY PO Last administered on 08:26; Start 12/21/17 at 10:00 Multivitamins/ Calcium (Thera-M Plus) 1 tab DAILY PO Last administered on 08:15; Start 12/21/17 at 10:00 Pioglitazone HCl (Actos) 30 mg DAILY PO Last administered on 01/11/18 08:15; Start 12/21/17 at 10:00 Polyethylene Glycol (miraLAX) 1 gm DAILY PO Last administered on 12/21/17 10: 12; Start 12/21/17 at 10:00; Stop 12/22/17 at 09:12; Status DC Potassium Chloride (Klor-Con) 10 meq DAILYWBKFT PO Last administered on 08:16; Start 12/22/17 at 10:00 Sennosides (Senna) 8.6 mg BID PO Last administered on 01/11/18 20:36; Start at 10:00 Simethicone (Gas-X) 120 mg TID PO Last administered on 01/11/18 20:36; Start at 10:00 Trazodone HCl (Desyrel) 12.5 mg TID@0900,1300,1700 PO Last administered on 09:34; Start 12/21/17 at 10:00; Stop 01/08/18 at 09:51; Status DC Artificial Tears (Artificial Tears) 1 drop PRN Q15MIN PRN OU DRY EYE Last administered on 12/22/17 15:57; Start 12/21/17 at 16:00 Polyethylene Glycol (miraLAX) 17 gm DAILY PO Last administered on 01/11/18 08: 17; Start 12/23/17 at 09:00 Clozapine (Clozaril) 100 mg QHS PO Last administered on 12/27/17 20:22; Start 12/22/17 at 21:00; Stop 12/28/17 at 16:39; Status DC Divalproex Sodium (Depakote Er) 1,750 mg QHS PO ; Start 12/25/17 at 21:00; Stop 12/25/17 at 21:00; Status DC Divalproex Sodium (Depakote Er) 1,500 mg QHS PO Last administered on 01/11/18 20:35; Start 12/25/17 at 21:00 Divalproex Sodium (Depakote Er) 250 mg QHS PO Last administered on 01/09/18 20: 10; Start 12/25/17 at 21:00; Stop 01/10/18 at 15:01; Status DC Clozapine (Clozaril) 125 mg QHS PO ; Start 12/28/17 at 21:00; Status UNV Clozapine (Clozaril) 25 mg QHS PO Last administered on 01/04/18at 19:44; Start 12/28/17 at 21:00; Stop 01/04/18 at 19:51; Status DC Clozapine (Clozaril) 100 mg QHS PO Last administered on 01/11/18 20:34; Start 12/28/17 at 21:00 Albuterol Sulfate (Ventolin) 2.5 mg PRN QID PRN NEB SHORTNESS OF BREATH; Start 01/01/18 at 04:45 Clozapine (Clozaril) 50 mg QHS PO Last administered on 01/11/18 20:34; Start at 21:00 Haloperidol (Haldol) 15 mg HS PO Last administered on 01/06/18at 20:05; Start at 21:00; Stop 01/06/18 at 21:01; Status DC Haloperidol (Haldol) 10 mg DAILY PO Last administered on 01/08/18at 09:34; Start 01/05/18 at 09:00; Stop 01/08/18 at 09:51; Status DC Haloperidol (Haldol) 10 mg HS PO Last administered on 01/07/18 20:18; Start at 21:00; Stop 01/08/18 at 09:51; Status DC Insulin Glargine (Lantus) 20 units DAILYWBKFT SQ Last administered on 01/11/18at 08:21; Start 01/07/18 at 08:00 Trazodone HCl (Desyrel) 50 mg PRN QHS PRN PO INSOMNIA, MAY REPEAT X1; Start 01/08/18 at 19:30 Active Scripts Active Reported Duoneb 0.5-3(2.5) Mg/3 Ml (Albuterol/Ipratropium) 3 Ml Ampul.neb 3 Ml NEB RTQID Trazodone Hcl 50 Mg Tablet 12.5 Mg PO TID@0900,1300,1700 Fluvoxamine Maleate 50 Mg Tablet 50 Mg PO QHS Clozaril (Clozapine) 25 Mg Tablet 75 Mg PO QHS Miralax (Polyethylene Glycol 3350) 17 Gm Powd.pack 1 Packet PO DAILY Zyprexa Zydis (Olanzapine) 5 Mg Tab.rapdis 5 Mg PO PRN Q2HR PRN Depakote Er (Divalproex Sodium) 500 Mg Tab.er.24h 1,500 Tab PO QHS Culturelle (Lactobacillus Rhamnosus Gg) 1 Each Cap.sprink 1 Each PO BID Multi Vitamin Daily (Multivitamin) 1 Each Tablet 1 Tab PO DAILY Simethicone 125 Mg Capsule 120 Mg PO TID Senna Lax (Sennosides) 8.6 Mg Tablet 8.6 Mg PO BID Potassium Chloride 10 Meq Tablet.er 10 Meq PO DAILYWBKFT Actos (Pioglitazone Hcl) 30 Mg Tablet 30 Mg PO DAILY Pepcid (Famotidine) 20 Mg Tablet 20 Mg PO BID Novolog Flexpen (Insulin Aspart) 100 Unit/1 Ml Insuln.pen 8 Units SQ DAILYBFRLUN Novolog Flexpen (Insulin Aspart) 100 Unit/1 Ml Insuln.pen 4 Units SQ DAILYWBKFT Novolog Flexpen (Insulin Aspart) 100 Unit/1 Ml Insuln.pen 10 Unit SQ DAILYBFRSUP Mapap (Acetaminophen) 500 Mg Tablet 500 Mg PO PRN Q6HRS PRN Magnesium Oxide 400 Mg Tablet 400 Mg PO DAILY Lisinopril 20 Mg Tablet 20 Mg PO DAILY Levemir Flextouch (Insulin Detemir) 100 Unit/1 Ml Insuln.pen 26 Units SQ DAILYWBKFT Levemir Flextouch (Insulin Detemir) 100 Unit/1 Ml Insuln.pen 16 Units SQ HS Lasix (Furosemide) 40 Mg Tablet 40 Mg PO DAILY Haloperidol 10 Mg Tablet 15 Mg PO BID Haloperidol Lactate 5 Mg/1 Ml Vial 5 Mg IM PRN Q4HRS PRN Gemfibrozil 600 Mg Tablet 600 Mg PO BID Gabapentin 300 Mg Capsule 300 Mg PO TID Flonase Allergy Relief (Fluticasone Propionate) 9.9 Ml [place].susp 2 Sprays NS PRN PRN Docusate Sodium 100 Mg Capsule 100 Mg PO DAILY Docusate Sodium 100 Mg Capsule 100 Mg PO PRN DAILY PRN Clonidine Hcl 0.1 Mg Tablet 0.1 Mg PO HS Cetirizine Hcl 10 Mg Tablet 10 Mg PO DAILY Aspirin Ec (Aspirin) 81 Mg Tablet.dr 81 Mg PO DAILYWBKFT Amlodipine Besylate 10 Mg Tablet 10 Mg PO DAILY Abilify (Aripiprazole) 15 Mg Tablet 10 Mg PO BID I have reviewed the current psychotropics carefully including drug interactions. Risk benefit ratio favors no change other than as noted in my dictated progress note. Diagnosis: Problems: (1) Anxiety disorder (2) Bipolar affective, mixed, sev w/ psych (3) Schizoaffective disorder, chronic condition with acute exacerbation (4) Schizophrenia, disorganized, subchronic with acute exacerbation JASS HUNG MD Jan 11, 2018 20:51
--- NOTE | 2018-01-11 21:43 | PN ---
DATE: 01/08/2018 This late entry 01/08/2018 covers elements not covered in my initial note 01/08/2018. I met with the patient in the evening. I was called as an emergency early in the morning of 01/08/2018 by nursing staff due to the patient's sedation, unable to hold on to supports around her, having some arm jerking movements and looking more confused. We had ordered several labs including CBC, CMP, valproic acid level, ammonia level, all of which are unremarkable. CK was slightly elevated at 300, but clinically insignificant. Serum prolactin level is awaited. Everything appears unremarkable. She has had some wet cough and chest x-ray was negative. CT is negative and we discontinued the trazodone 12.5 mg t.i.d. and Haldol. She remains on the Depakote, Luvox, and Clozaril. Valproic acid level is therapeutic at 63. No CV, , pulmonary, eye, ENT system symptoms on review. MENTAL STATUS EXAM: Reasonably oriented. Speech coherent, rapid at times. Abstraction fair, computation impaired, language function intact, attention span short, mood and affect somewhat withdrawn. LABORATORY DATA: Reviewed. By the evening, the patient was much clearer, much less sedated. IMPRESSION: Schizoaffective disorder, bipolar type, mixed with psychotic features, in partial remission. Rest unchanged. PLAN: Continue psychotropics with the changes noted above. JASS HUNG MD DR: KATIANA/alicia JOB#: [id number] / [id number]
--- NOTE | 2018-01-11 21:46 | PN ---
DATE: 01/09/2018 This is a late entry 01/09/2018 covers elements not covered in my initial note 01/09/2018. SUBJECTIVE: I met with the patient in the evening. The patient slept 6-3/4 hours previous evening, lethargic in the morning, got up for breakfast trying to find a ride to go home. REVIEW OF SYSTEMS: No CV, , pulmonary, eye, ENT system symptoms on review. MENTAL STATUS EXAM: Oriented to herself and situation. Speech coherent, has some latency, appears tired. Abstraction fair, computation impaired, language function intact, attention span short. Mood and affect less withdrawn. LABORATORY DATA: Reviewed. IMPRESSION: Schizoaffective disorder, bipolar type, mixed with psychotic features; anxiety disorder, unspecified; impulse control disorder, unspecified. Rest unchanged. PLAN: Continue current psychotropics mentioned in my initial note. MAN Prosper HUNG MD DR: KATIANA/alicia JOB#: [id number] / [id number]
[2018-01-12 06:11] VITALS: BP 102/52
[2018-01-12] MEDS: INSULIN LISPRO 300 UNITS/3 ML INSULN.PEN. SQ SCH ×3 (08:00→17:32)
[2018-01-12] MEDS: CETIRIZINE HCL 10 MG TABLET PO SCH (08:30)
[2018-01-12] MEDS: FAMOTIDINE 20 MG TABLET PO SCH ×2 (08:30→20:47)
[2018-01-12] MEDS: POTASSIUM CHLORIDE 10 MEQ TABLET.ER. PO SCH (08:30)
[2018-01-12] MEDS: POLYETHYLENE GLYCOL 3350 17 GM PACKET. PO SCH (08:30)
[2018-01-12] MEDS: GEMFIBROZIL 600 MG TABLET. PO SCH ×2 (08:30→20:44)
[2018-01-12] MEDS: GABAPENTIN 300 MG CAPSULE. PO SCH ×3 (08:31→20:47)
[2018-01-12] MEDS: FUROSEMIDE 40 MG TABLET PO SCH (08:31)
[2018-01-12] MEDS: SIMETHICONE 80 MG TAB.CHEW PO SCH ×3 (08:31→20:44)
[2018-01-12] MEDS: PIOGLITAZONE 15 MG TABLET. PO SCH (08:31)
[2018-01-12] MEDS: DOCUSATE SODIUM 100 MG CAPSULE PO SCH (08:31)
[2018-01-12] MEDS: SENNOSIDES 8.6 MG TABLET PO SCH ×2 (08:31→20:44)
[2018-01-12] MEDS: MAGNESIUM OXIDE 400 MG TABLET PO SCH (08:32)
[2018-01-12] MEDS: LACTOBACILLUS RHAMNOSUS GG 1 CAPSULE. PO SCH ×2 (08:32→20:47)
[2018-01-12] MEDS: MULTIVITAMIN with MINERAL TABLET. PO SCH (08:32)
[2018-01-12] MEDS: amLODIPine BESYLATE 10 MG TABLET PO SCH (08:51)
[2018-01-12] MEDS: INSULIN GLARGINE 300 UNITS/3 ML INSULN.PEN. SQ SCH ×2 (08:51→20:59)
[2018-01-12] MEDS: LISINOPRIL 20 MG TABLET PO SCH (08:52)
--- NOTE | 2018-01-12 09:49 | PN ---
DATE: 01/10/2018 This is a late entry for 01/10/2018 and covers elements not covered in my initial note of 01/10/2018. I met with the patient in the afternoon. Overall, the patient is somewhat sedated, withdrawn, having jerking movements. We will reduce the Depakote ER from 1750 mg at bedtime to 1500 mg at bedtime. Check CBC, CMP, valproic acid level in 3 days. REVIEW OF SYSTEMS: Positive for some tiredness. No CV, , pulmonary, eye, ENT system symptoms on review. MENTAL STATUS EXAM: Oriented to herself and situation. Speech is coherent, abstraction fair, computation impaired, language function intact, attention span short. Mood and affect showing improvement. Valproic acid level is 63. LABORATORY DATA: Reviewed. IMPRESSION: Schizoaffective disorder, bipolar type, mixed with psychotic features; cognitive disorder, unspecified. PLAN: Reduce Depakote ER to 1500 mg at bedtime. Check CBC, CMP, valproic acid level in 3 days. Continue rest unchanged. MAN Prosper HUNG MD DR: KATIANA/alicia JOB#: [id number] / [id number]
[2018-01-12 16:56] VITALS: BP 172/90
[2018-01-12] MEDS: cloNIDine HCL 0.1 MG TABLET PO SCH (20:44)
[2018-01-12] MEDS: DIVALPROEX ER 500 MG TAB.ER.24H PO SCH (20:46)
[2018-01-12] MEDS: cloZAPine 25 MG TABLET PO SCH (20:46)
[2018-01-12] MEDS: cloZAPine 100 MG TABLET PO SCH (20:46)
--- NOTE | 2018-01-12 20:54 | PDOC ---
Exam Note: Tay Note: Please also refer to the separate dictated note~for this date of service dictated separately.~Patient seen individually. Discussed the patient with Nursing staff reviewed the chart.~Reviewed interim history and current functioning. Reviewed vital signs,~Labs/ Radiology~and current medications noted below. Continue current treatment with the changes noted in the dictated addendum note Assessment: Vital Signs: Vital Signs Date Time Temp Pulse Resp B/P (MAP) Pulse Ox O2 Delivery O2 Flow Rate FiO2 01/12/18 16:56 97.8 88 20 172/90 (117) 98 01/11/18 16:39 Room Air 01/11/18 05:55 2.0 I&O Intake and Output 01/12/18 07:00 Intake Total 1200 ml Balance 1200 ml Intake Oral 1200 ml Labs: Laboratory Tests Test 01/12/18 07:33 01/12/18 11:50 01/12/18 17:08 01/12/18 19:04 Glucose (Fingerstick) 69 mg/dL (70-99) L 155 mg/dL (70-99) H 103 mg/dL (70-99) H 111 mg/dL (70-99) H Current Medications: Meds: Current Medications Acetaminophen (Tylenol) 650 mg PRN Q6HRS PRN PO PAIN / TEMP; Start 12/20/17 at 23:30; Status Cancel Multi-Ingredient Ointment (Analgesic [place]) 1 caridad PRN QID PRN TP MUSCLE PAIN; Start 12/20/17 at 23:30 Al Hydroxide/Mg Hydroxide (Mylanta Plus Xs) 15 ml PRN AFTMEALHC PRN PO DYSPEPSIA; Start 12/20/17 at 23:30 Magnesium Hydroxide (Milk Of Magnesia) 2,400 mg PRN QHS PRN PO CONSTIPATION; Start 12/20/17 at 23:30 Olanzapine (ZyPREXA ZYDIS) 5 mg PRN Q2HR PRN PO PSYCHOSIS; Start 12/21/17 at 01 :00 Aripiprazole (Abilify) 10 mg BID PO Last administered on 12/26/17at 08:44; Start 12/21/17 at 09:00; Stop 12/26/17 at 19:47; Status DC Clozapine (Clozaril) 75 mg QHS PO Last administered on 12/21/17at 20:40; Start 12/21/17 at 21:00; Stop 12/22/17 at 19:20; Status DC Divalproex Sodium (Depakote Er) 1,500 mg QHS PO Last administered on 12/24/17at 20:23; Start 12/21/17 at 21:00; Stop 12/25/17 at 19:22; Status DC Fluvoxamine Maleate (Luvox) 50 mg QHS PO Last administered on 01/11/18 20:35; Start 12/21/17 at 21:00; Stop 01/12/18 at 18:48; Status DC Haloperidol (Haldol) 15 mg BID PO Last administered on 01/04/18 19:47; Start 12/21/17 at 09:00; Stop 01/04/18 at 19:51; Status DC Haloperidol Lactate (Haldol) 5 mg PRN Q4HRS PRN IM AGITATION; Start 12/21/17 at 01:00; Stop 12/21/17 at 01:43; Status DC Clonidine HCl (Catapres) 0.1 mg HS PO Last administered on 01/11/18 20:36; Start 12/21/17 at 21:00 Gabapentin (Neurontin) 300 mg TID PO Last administered on 01/12/18 15:56; Start 12/21/17 at 10:00 Insulin Human Lispro (HumaLOG) 4 units DAILYWBKFT SQ Last administered on 08:19; Start 12/22/17 at 08:00 Insulin Human Lispro (HumaLOG) 8 units DAILYBFRLUN SQ Last administered on 12:35; Start 12/21/17 at 11:30 Insulin Human Lispro (HumaLOG) 10 units DAILYBFRSUP SQ Last administered on 01/12 17:32; Start 12/21/17 at 17:00 Albuterol/ Ipratropium (Duoneb) 3 ml RTQID NEB Last administered on 01/01/18 04:10; Start 12/21/17 at 12:00; Stop 01/01/18 at 04:40; Status DC Lactobacillus Rhamnosus (Culturelle) 1 cap BID PO Last administered on 08:32; Start 12/21/17 at 10:00 Lisinopril (Prinivil) 20 mg DAILY PO Last administered on 01/11/18 08:17; Start 12/21/17 at 10:00 Acetaminophen (Tylenol) 500 mg PRN Q6HRS PRN PO PAIN; Start 12/21/17 at 09:30 Amlodipine Besylate (Norvasc) 10 mg DAILY PO Last administered on 01/11/18 08: 16; Start 12/21/17 at 10:00 Cetirizine HCl (ZyrTEC) 10 mg DAILY PO Last administered on 01/12/18 08:30; Start 12/21/17 at 10:00 Docusate Sodium (Colace) 100 mg DAILY PO Last administered on 01/12/18 08:31; Start 12/21/17 at 10:00 Docusate Sodium (Colace) 100 mg PRN DAILY PRN PO CONSTIPATION; Start 12/21/17 at 10:00 Famotidine (Pepcid) 20 mg BID PO Last administered on 01/12/18 08:30; Start at 10:00 Fluticasone Propionate (Flonase) 2 spray PRN DAILY PRN NS ALLERGIES; Start at 09:30 Furosemide (Lasix) 40 mg DAILY PO Last administered on 01/12/18 08:31; Start at 10:00 Gemfibrozil (Lopid) 600 mg BID PO Last administered on 01/12/18 08:30; Start at 10:00 Insulin Glargine (Lantus) 16 units HS SQ Last administered on 01/11/18at 20:45; Start 12/21/17 at 21:00 Insulin Glargine (Lantus) 26 units DAILYWBKFT SQ Last administered on 09:05; Start 12/22/17 at 08:00; Stop 01/06/18 at 18:58; Status DC Magnesium Oxide (Magnesium Oxide) 400 mg DAILY PO Last administered on 08:32; Start 12/21/17 at 10:00 Multivitamins/ Calcium (Thera-M Plus) 1 tab DAILY PO Last administered on 08:32; Start 12/21/17 at 10:00 Pioglitazone HCl (Actos) 30 mg DAILY PO Last administered on 01/12/18 08:31; Start 12/21/17 at 10:00 Polyethylene Glycol (miraLAX) 1 gm DAILY PO Last administered on 12/21/17at 10: 12; Start 12/21/17 at 10:00; Stop 12/22/17 at 09:12; Status DC Potassium Chloride (Klor-Con) 10 meq DAILYWBKFT PO Last administered on 08:30; Start 12/22/17 at 10:00 Sennosides (Senna) 8.6 mg BID PO Last administered on 01/12/18 08:31; Start at 10:00 Simethicone (Gas-X) 120 mg TID PO Last administered on 01/12/18 15:57; Start at 10:00 Trazodone HCl (Desyrel) 12.5 mg TID@0900,1300,1700 PO Last administered on 09:34; Start 12/21/17 at 10:00; Stop 01/08/18 at 09:51; Status DC Artificial Tears (Artificial Tears) 1 drop PRN Q15MIN PRN OU DRY EYE Last administered on 12/22/17 15:57; Start 12/21/17 at 16:00 Polyethylene Glycol (miraLAX) 17 gm DAILY PO Last administered on 01/12/18 08: 30; Start 12/23/17 at 09:00 Clozapine (Clozaril) 100 mg QHS PO Last administered on 12/27/17 20:22; Start 12/22/17 at 21:00; Stop 12/28/17 at 16:39; Status DC Divalproex Sodium (Depakote Er) 1,750 mg QHS PO ; Start 12/25/17 at 21:00; Stop 12/25/17 at 21:00; Status DC Divalproex Sodium (Depakote Er) 1,500 mg QHS PO Last administered on 01/11/18 20:35; Start 12/25/17 at 21:00 Divalproex Sodium (Depakote Er) 250 mg QHS PO Last administered on 01/09/18 20: 10; Start 12/25/17 at 21:00; Stop 01/10/18 at 15:01; Status DC Clozapine (Clozaril) 125 mg QHS PO ; Start 12/28/17 at 21:00; Status UNV Clozapine (Clozaril) 25 mg QHS PO Last administered on 01/04/18at 19:44; Start 12/28/17 at 21:00; Stop 01/04/18 at 19:51; Status DC Clozapine (Clozaril) 100 mg QHS PO Last administered on 01/11/18at 20:34; Start 12/28/17 at 21:00 Albuterol Sulfate (Ventolin) 2.5 mg PRN QID PRN NEB SHORTNESS OF BREATH; Start 01/01/18 at 04:45 Clozapine (Clozaril) 50 mg QHS PO Last administered on 01/11/18at 20:34; Start at 21:00 Haloperidol (Haldol) 15 mg HS PO Last administered on 01/06/18at 20:05; Start at 21:00; Stop 01/06/18 at 21:01; Status DC Haloperidol (Haldol) 10 mg DAILY PO Last administered on 01/08/18at 09:34; Start 01/05/18 at 09:00; Stop 01/08/18 at 09:51; Status DC Haloperidol (Haldol) 10 mg HS PO Last administered on 01/07/18at 20:18; Start at 21:00; Stop 01/08/18 at 09:51; Status DC Insulin Glargine (Lantus) 20 units DAILYWBKFT SQ Last administered on 01/12/18at 08:51; Start 01/07/18 at 08:00 Trazodone HCl (Desyrel) 50 mg PRN QHS PRN PO INSOMNIA, MAY REPEAT X1; Start 01/08/18 at 19:30 Active Scripts Active Reported Duoneb 0.5-3(2.5) Mg/3 Ml (Albuterol/Ipratropium) 3 Ml Ampul.neb 3 Ml NEB RTQID Trazodone Hcl 50 Mg Tablet 12.5 Mg PO TID@0900,1300,1700 Fluvoxamine Maleate 50 Mg Tablet 50 Mg PO QHS Clozaril (Clozapine) 25 Mg Tablet 75 Mg PO QHS Miralax (Polyethylene Glycol 3350) 17 Gm Powd.pack 1 Packet PO DAILY Zyprexa Zydis (Olanzapine) 5 Mg Tab.rapdis 5 Mg PO PRN Q2HR PRN Depakote Er (Divalproex Sodium) 500 Mg Tab.er.24h 1,500 Tab PO QHS Culturelle (Lactobacillus Rhamnosus Gg) 1 Each Cap.sprink 1 Each PO BID Multi Vitamin Daily (Multivitamin) 1 Each Tablet 1 Tab PO DAILY Simethicone 125 Mg Capsule 120 Mg PO TID Senna Lax (Sennosides) 8.6 Mg Tablet 8.6 Mg PO BID Potassium Chloride 10 Meq Tablet.er 10 Meq PO DAILYWBKFT Actos (Pioglitazone Hcl) 30 Mg Tablet 30 Mg PO DAILY Pepcid (Famotidine) 20 Mg Tablet 20 Mg PO BID Novolog Flexpen (Insulin Aspart) 100 Unit/1 Ml Insuln.pen 8 Units SQ DAILYBFRLUN Novolog Flexpen (Insulin Aspart) 100 Unit/1 Ml Insuln.pen 4 Units SQ DAILYWBKFT Novolog Flexpen (Insulin Aspart) 100 Unit/1 Ml Insuln.pen 10 Unit SQ DAILYBFRSUP Mapap (Acetaminophen) 500 Mg Tablet 500 Mg PO PRN Q6HRS PRN Magnesium Oxide 400 Mg Tablet 400 Mg PO DAILY Lisinopril 20 Mg Tablet 20 Mg PO DAILY Levemir Flextouch (Insulin Detemir) 100 Unit/1 Ml Insuln.pen 26 Units SQ DAILYWBKFT Levemir Flextouch (Insulin Detemir) 100 Unit/1 Ml Insuln.pen 16 Units SQ HS Lasix (Furosemide) 40 Mg Tablet 40 Mg PO DAILY Haloperidol 10 Mg Tablet 15 Mg PO BID Haloperidol Lactate 5 Mg/1 Ml Vial 5 Mg IM PRN Q4HRS PRN Gemfibrozil 600 Mg Tablet 600 Mg PO BID Gabapentin 300 Mg Capsule 300 Mg PO TID Flonase Allergy Relief (Fluticasone Propionate) 9.9 Ml [place].susp 2 Sprays NS PRN PRN Docusate Sodium 100 Mg Capsule 100 Mg PO DAILY Docusate Sodium 100 Mg Capsule 100 Mg PO PRN DAILY PRN Clonidine Hcl 0.1 Mg Tablet 0.1 Mg PO HS Cetirizine Hcl 10 Mg Tablet 10 Mg PO DAILY Aspirin Ec (Aspirin) 81 Mg Tablet.dr 81 Mg PO [id number] Amlodipine Besylate 10 Mg Tablet 10 Mg PO DAILY Abilify (Aripiprazole) 15 Mg Tablet 10 Mg PO BID I have reviewed the current psychotropics carefully including drug interactions. Risk benefit ratio favors no change other than as noted in my dictated progress note. Diagnosis: Problems: (1) Anxiety disorder (2) Bipolar affective, mixed, sev w/ psych (3) Schizoaffective disorder, chronic condition with acute exacerbation (4) Schizophrenia, disorganized, subchronic with acute exacerbation JASS HUNG MD Jan 12, 2018 20:54
--- NOTE | 2018-01-12 21:08 | PN ---
DATE: 01/11/2018 PSYCHIATRIC PROGRESS NOTE This is a late entry 01/11/2018 covers elements not covered in my initial note 01/11/2018. SUBJECTIVE: I met with the patient in the evening. The patient was somewhat drowsy in the morning, but more awake in the evening when I met with her. The patient has had a dry cough possibly from lisinopril, we will defer to Dr. Bishop. REVIEW OF SYSTEMS: No CV, , pulmonary, eye, ENT system symptoms on review. She is much more verbal, holding my hand, interactive, smiling. MENTAL STATUS EXAM: Oriented to herself and situation. Speech has some latency, coherent. Abstraction fair, computation impaired, unable to do serial sevens other than one step, remembered 2/3 objects at 3 minutes. No active suicidal or homicidal ideations: Psychotic symptoms appear improved. IMPRESSION: Unchanged from initial note. PLAN: Continue psychotropics mentioned in my initial note including Depakote, Luvox, Clozaril. The latter at 150 mg at bedtime. We will not increase it for now. MAN Prosper HUNG MD DR: KATIANA/alicia JOB#: [id number] / [id number]
[2018-01-13 06:34] VITALS: BP 119/67
[2018-01-13] MEDS: INSULIN LISPRO 300 UNITS/3 ML INSULN.PEN. SQ SCH ×2 (07:40→12:03)
[2018-01-13 07:42] LABS: BASO % 1 % (0-3); EOS # 0.4 x10^3/uL (0.0-0.7); EOS % 8 % (0-3); HEMATOCRIT 35.3 % (36.0-47.0); HEMOGLOBIN 11.3 g/dL (12.0-15.5); LYMPH # 2.2 x10^3/uL (1.0-4.8); LYMPH % 46 % (24-48); MEAN CORPUSCULAR HEMOGLOBIN 27 pg (25-35); MEAN CORPUSCULAR HGB CONC 32 g/dL (31-37); MEAN CORPUSCULAR VOLUME 86 fL (79-100); MONO # 0.6 x10^3/uL (0.0-1.1); MONO % 13 % (0-9); NEUT # 1.5 x10^3uL (1.8-7.7); NEUT % 32 % (31-73); PLATELET COUNT 271 x10^3/uL (140-400); RED BLOOD COUNT 4.13 x10^6/uL (3.50-5.40); RED CELL DISTRIBUTION WIDTH 17.7 % (11.5-14.5); WHITE BLOOD COUNT 4.7 x10^3/uL (4.0-11.0)
[2018-01-13 08:03] LABS: ALBUMIN 2.8 g/dL (3.4-5.0); ALBUMIN/GLOBULIN RATIO 0.7 (1.0-1.7); ALK PHOS 134 U/L (46-116); ALT (SGPT) 19 U/L (14-59); ANION GAP 3 (6-14); AST (SGOT) 19 U/L (15-37); BLOOD UREA NITROGEN 25 mg/dL (7-20); BUN/CREATININE RATIO 13 (6-20); CALCIUM 8.8 mg/dL (8.5-10.1); CARBON DIOXIDE 37 mmol/L (21-32); CHLORIDE 106 mmol/L (98-107); GFR 31.8; GLUCOSE 93 mg/dL (70-99); POTASSIUM 4.4 mmol/L (3.5-5.1); SODIUM 146 mmol/L (136-145); TOTAL BILIRUBIN 0.2 mg/dL (0.2-1.0); TOTAL PROTEIN 6.6 g/dL (6.4-8.2); VAL ACID 51 mcg/mL (50-100)
[2018-01-13] MEDS: INSULIN GLARGINE 300 UNITS/3 ML INSULN.PEN. SQ SCH (08:38)
[2018-01-13] MEDS: FAMOTIDINE 20 MG TABLET PO SCH (08:39)
[2018-01-13] MEDS: POLYETHYLENE GLYCOL 3350 17 GM PACKET. PO SCH (08:39)
[2018-01-13] MEDS: PIOGLITAZONE 15 MG TABLET. PO SCH (08:39)
[2018-01-13] MEDS: LACTOBACILLUS RHAMNOSUS GG 1 CAPSULE. PO SCH (08:40)
[2018-01-13] MEDS: amLODIPine BESYLATE 10 MG TABLET PO SCH (08:40)
[2018-01-13] MEDS: GEMFIBROZIL 600 MG TABLET. PO SCH (08:40)
[2018-01-13] MEDS: POTASSIUM CHLORIDE 10 MEQ TABLET.ER. PO SCH (08:40)
[2018-01-13] MEDS: SENNOSIDES 8.6 MG TABLET PO SCH (08:40)
[2018-01-13] MEDS: FUROSEMIDE 40 MG TABLET PO SCH (08:40)
[2018-01-13] MEDS: MAGNESIUM OXIDE 400 MG TABLET PO SCH (08:40)
[2018-01-13] MEDS: DOCUSATE SODIUM 100 MG CAPSULE PO SCH (08:40)
[2018-01-13] MEDS: CETIRIZINE HCL 10 MG TABLET PO SCH (08:40)
[2018-01-13 08:41] VITALS: BP 119/67
[2018-01-13] MEDS: GABAPENTIN 300 MG CAPSULE. PO SCH (08:41)
[2018-01-13] MEDS: SIMETHICONE 80 MG TAB.CHEW PO SCH (08:41)
[2018-01-13] MEDS: LISINOPRIL 20 MG TABLET PO SCH (08:41)
[2018-01-13] MEDS: MULTIVITAMIN with MINERAL TABLET. PO SCH (08:42)
[2018-01-13] MEDS ORDERED: MAG355OR22 PO (11:12)
[2018-01-13] MEDS ORDERED: MAGN2400 PO (11:13)
[2018-01-13] MEDS ORDERED: METH29OI TP (11:15)
[2018-01-13] MEDS ORDERED: POLY15DR27 OU (11:17)
[2018-01-13] MEDS ORDERED: TRAZ50TA15 PO (11:17)
--- NOTE | 2018-01-13 11:31 | PN ---
DATE: 01/12/2018 PSYCHIATRIC PROGRESS NOTE This is a late entry 01/12/2018 covers elements not covered in my initial note 01/12/2018. SUBJECTIVE: I met with the patient in the evening. Previous evening, the patient was picking and choosing which medications she would take. She refused the Depakote. [birth year] and her family had come to visit her including her 3 children and . Apparently, they have had minimal contact with her for some time, but she was pleased to have them visit her. REVIEW OF SYSTEMS: Positive for some tiredness. No CV, , pulmonary, eye, ENT system symptoms on review. MENTAL STATUS EXAM: Oriented to herself and situation. Speech has some latency, coherent. Abstraction fair, computation impaired, language function intact, attention span short. Mood and affect somewhat labile at times, still somewhat sedated. LABORATORY DATA: Reviewed. IMPRESSION: Unchanged from initial note. PLAN: Stop the Luvox. Continue Clozaril, Depakote along with trazodone p.r.n. and Zyprexa p.r.n. JASS HUNG MD DR: KATIANA/alicia JOB#: [id number] / [id number]
--- NOTE | 2018-01-13 18:25 | PDOC ---
Exam Note: Tay Note: Please also refer to the separate dictated note~for this date of service dictated separately.~Patient seen individually. Discussed the patient with Nursing staff reviewed the chart.~Reviewed interim history and current functioning. Reviewed vital signs,~Labs/ Radiology~and current medications noted below. Continue current treatment with the changes noted in the dictated addendum note Assessment: Vital Signs: Vital Signs Date Time Temp Pulse Resp B/P (MAP) Pulse Ox O2 Delivery O2 Flow Rate FiO2 01/13/18 08:41 82 119/67 01/13/18 06:34 96.2 14 96 01/11/18 16:39 Room Air 01/11/18 05:55 2.0 I&O Intake and Output 01/13/18 07:00 Intake Total 1080 ml Balance 1080 ml Intake Oral 1080 ml Labs: Laboratory Tests Test 01/12/18 19:04 01/13/18 07:10 01/13/18 07:30 Glucose (Fingerstick) 111 mg/dL (70-99) H 85 mg/dL (70-99) White Blood Count 4.7 x10^3/uL (4.0-11.0) Red Blood Count 4.13 x10^6/uL (3.50-5.40) Hemoglobin 11.3 g/dL (12.0-15.5) L Hematocrit 35.3 % (36.0-47.0) L Mean Corpuscular Volume 86 fL (79-100) Mean Corpuscular Hemoglobin 27 pg (25-35) Mean Corpuscular Hemoglobin Concent 32 g/dL (31-37) Red Cell Distribution Width 17.7 % (11.5-14.5) H Platelet Count 271 x10^3/uL (140-400) Neutrophils (%) (Auto) 32 % (31-73) Lymphocytes (%) (Auto) 46 % (24-48) Monocytes (%) (Auto) 13 % (0-9) H Eosinophils (%) (Auto) 8 % (0-3) H Basophils (%) (Auto) 1 % (0-3) Neutrophils # (Auto) 1.5 x10^3uL (1.8-7.7) L Lymphocytes # (Auto) 2.2 x10^3/uL (1.0-4.8) Monocytes # (Auto) 0.6 x10^3/uL (0.0-1.1) Eosinophils # (Auto) 0.4 x10^3/uL (0.0-0.7) Basophils # (Auto) 0.0 x10^3/uL (0.0-0.2) Sodium Level 146 mmol/L (136-145) H Potassium Level 4.4 mmol/L (3.5-5.1) Chloride Level 106 mmol/L (98-107) Carbon Dioxide Level 37 mmol/L (21-32) H Anion Gap 3 (6-14) L Blood Urea Nitrogen 25 mg/dL (7-20) H Creatinine 2.0 mg/dL (0.6-1.0) H Estimated GFR (Cockcroft-Gault) 31.8 BUN/Creatinine Ratio 13 (6-20) Glucose Level 93 mg/dL (70-99) Calcium Level 8.8 mg/dL (8.5-10.1) Total Bilirubin 0.2 mg/dL (0.2-1.0) Aspartate Amino Transferase (AST) 19 U/L (15-37) Alanine Aminotransferase (ALT) 19 U/L (14-59) Alkaline Phosphatase 134 U/L (46-116) H Total Protein 6.6 g/dL (6.4-8.2) Albumin 2.8 g/dL (3.4-5.0) L Albumin/Globulin Ratio 0.7 (1.0-1.7) L Valproic Acid Level 51 mcg/mL (50-100) Valproic Acid Last Dose Date 01/12/2018 Valproic Acid Last Dose Time 2100 Current Medications: Meds: Current Medications Acetaminophen (Tylenol) 650 mg PRN Q6HRS PRN PO PAIN / TEMP; Start 12/20/17 at 23:30; Status Cancel Multi-Ingredient Ointment (Analgesic [place]) 1 yong PRN QID PRN TP MUSCLE PAIN; Start 12/20/17 at 23:30; Stop 01/13/18 at 12:04; Status DC Al Hydroxide/Mg Hydroxide (Mylanta Plus Xs) 15 ml PRN AFTMEALHC PRN PO DYSPEPSIA; Start 12/20/17 at 23:30; Stop 01/13/18 at 12:04; Status DC Magnesium Hydroxide (Milk Of Magnesia) 2,400 mg PRN QHS PRN PO CONSTIPATION; Start 12/20/17 at 23:30; Stop 01/13/18 at 12:04; Status DC Olanzapine (ZyPREXA ZYDIS) 5 mg PRN Q2HR PRN PO PSYCHOSIS; Start 12/21/17 at 01 :00; Stop 01/13/18 at 12:04; Status DC Aripiprazole (Abilify) 10 mg BID PO Last administered on 12/26/17at 08:44; Start 12/21/17 at 09:00; Stop 12/26/17 at 19:47; Status DC Clozapine (Clozaril) 75 mg QHS PO Last administered on 12/21/17at 20:40; Start 12/21/17 at 21:00; Stop 12/22/17 at 19:20; Status DC Divalproex Sodium (Depakote Er) 1,500 mg QHS PO Last administered on 12/24/17at 20:23; Start 12/21/17 at 21:00; Stop 12/25/17 at 19:22; Status DC Fluvoxamine Maleate (Luvox) 50 mg QHS PO Last administered on 01/11/18at 20:35; Start 12/21/17 at 21:00; Stop 01/12/18 at 18:48; Status DC Haloperidol (Haldol) 15 mg BID PO Last administered on 01/04/18at 19:47; Start 12/21/17 at 09:00; Stop 01/04/18 at 19:51; Status DC Haloperidol Lactate (Haldol) 5 mg PRN Q4HRS PRN IM AGITATION; Start 12/21/17 at 01:00; Stop 12/21/17 at 01:43; Status DC Clonidine HCl (Catapres) 0.1 mg HS PO Last administered on 01/12/18 20:44; Start 12/21/17 at 21:00; Stop 01/13/18 at 12:04; Status DC Gabapentin (Neurontin) 300 mg TID PO Last administered on 01/13/18at 08:41; Start 12/21/17 at 10:00; Stop 01/13/18 at 12:04; Status DC Insulin Human Lispro (HumaLOG) 4 units DAILYWBKFT SQ Last administered on at 08:19; Start 12/22/17 at 08:00; Stop 01/13/18 at 12:04; Status DC Insulin Human Lispro (HumaLOG) 8 units DAILYBFRLUN SQ Last administered on at 12:35; Start 12/21/17 at 11:30; Stop 01/13/18 at 12:04; Status DC Insulin Human Lispro (HumaLOG) 10 units DAILYBFRSUP SQ Last administered on 01/12at 17:32; Start 12/21/17 at 17:00; Stop 01/13/18 at 12:04; Status DC Albuterol/ Ipratropium (Duoneb) 3 ml RTQID NEB Last administered on 01/01/18at 04:10; Start 12/21/17 at 12:00; Stop 01/01/18 at 04:40; Status DC Lactobacillus Rhamnosus (Culturelle) 1 cap BID PO Last administered on at 08:40; Start 12/21/17 at 10:00; Stop 01/13/18 at 12:04; Status DC Lisinopril (Prinivil) 20 mg DAILY PO Last administered on 01/13/18at 08:41; Start 12/21/17 at 10:00; Stop 01/13/18 at 12:04; Status DC Acetaminophen (Tylenol) 500 mg PRN Q6HRS PRN PO PAIN; Start 12/21/17 at 09:30; Stop 01/13/18 at 12:04; Status DC Amlodipine Besylate (Norvasc) 10 mg DAILY PO Last administered on 01/13/18at 08: 40; Start 12/21/17 at 10:00; Stop 01/13/18 at 12:04; Status DC Cetirizine HCl (ZyrTEC) 10 mg DAILY PO Last administered on 01/13/18at 08:40; Start 12/21/17 at 10:00; Stop 01/13/18 at 12:04; Status DC Docusate Sodium (Colace) 100 mg DAILY PO Last administered on 01/13/18at 08:40; Start 12/21/17 at 10:00; Stop 01/13/18 at 12:04; Status DC Docusate Sodium (Colace) 100 mg PRN DAILY PRN PO CONSTIPATION; Start 12/21/17 at 10:00; Stop 01/13/18 at 12:04; Status DC Famotidine (Pepcid) 20 mg BID PO Last administered on 01/13/18at 08:39; Start at 10:00; Stop 01/13/18 at 12:04; Status DC Fluticasone Propionate (Flonase) 2 spray PRN DAILY PRN NS ALLERGIES; Start at 09:30; Stop 01/13/18 at 12:04; Status DC Furosemide (Lasix) 40 mg DAILY PO Last administered on 01/13/18at 08:40; Start at 10:00; Stop 01/13/18 at 12:04; Status DC Gemfibrozil (Lopid) 600 mg BID PO Last administered on 01/13/18at 08:40; Start at 10:00; Stop 01/13/18 at 12:04; Status DC Insulin Glargine (Lantus) 16 units HS SQ Last administered on 01/12/18at 20:59; Start 12/21/17 at 21:00; Stop 01/13/18 at 12:04; Status DC Insulin Glargine (Lantus) 26 units DAILYWBKFT SQ Last administered on at 09:05; Start 12/22/17 at 08:00; Stop 01/06/18 at 18:58; Status DC Magnesium Oxide (Magnesium Oxide) 400 mg DAILY PO Last administered on at 08:40; Start 12/21/17 at 10:00; Stop 01/13/18 at 12:04; Status DC Multivitamins/ Calcium (Thera-M Plus) 1 tab DAILY PO Last administered on at 08:42; Start 12/21/17 at 10:00; Stop 01/13/18 at 12:04; Status DC Pioglitazone HCl (Actos) 30 mg DAILY PO Last administered on 01/13/18at 08:39; Start 12/21/17 at 10:00; Stop 01/13/18 at 12:04; Status DC Polyethylene Glycol (miraLAX) 1 gm DAILY PO Last administered on 12/21/17at 10: 12; Start 12/21/17 at 10:00; Stop 12/22/17 at 09:12; Status DC Potassium Chloride (Klor-Con) 10 meq DAILYWBKFT PO Last administered on at 08:40; Start 12/22/17 at 10:00; Stop 01/13/18 at 12:04; Status DC Sennosides (Senna) 8.6 mg BID PO Last administered on 01/13/18at 08:40; Start at 10:00; Stop 01/13/18 at 12:04; Status DC Simethicone (Gas-X) 120 mg TID PO Last administered on 01/13/18 08:41; Start at 10:00; Stop 01/13/18 at 12:04; Status DC Trazodone HCl (Desyrel) 12.5 mg TID@0900,1300,1700 PO Last administered on at 09:34; Start 12/21/17 at 10:00; Stop 01/08/18 at 09:51; Status DC Artificial Tears (Artificial Tears) 1 drop PRN Q15MIN PRN OU DRY EYE Last administered on 12/22/17at 15:57; Start 12/21/17 at 16:00; Stop 01/13/18 at 12:04 ; Status DC Polyethylene Glycol (miraLAX) 17 gm DAILY PO Last administered on 01/13/18 08: 39; Start 12/23/17 at 09:00; Stop 01/13/18 at 12:04; Status DC Clozapine (Clozaril) 100 mg QHS PO Last administered on 12/27/17 20:22; Start 12/22/17 at 21:00; Stop 12/28/17 at 16:39; Status DC Divalproex Sodium (Depakote Er) 1,750 mg QHS PO ; Start 12/25/17 at 21:00; Stop 12/25/17 at 21:00; Status DC Divalproex Sodium (Depakote Er) 1,500 mg QHS PO Last administered on 01/12/18at 20:46; Start 12/25/17 at 21:00; Stop 01/13/18 at 12:04; Status DC Divalproex Sodium (Depakote Er) 250 mg QHS PO Last administered on 01/09/18at 20: 10; Start 12/25/17 at 21:00; Stop 01/10/18 at 15:01; Status DC Clozapine (Clozaril) 125 mg QHS PO ; Start 12/28/17 at 21:00; Status UNV Clozapine (Clozaril) 25 mg QHS PO Last administered on 01/04/18at 19:44; Start 12/28/17 at 21:00; Stop 01/04/18 at 19:51; Status DC Clozapine (Clozaril) 100 mg QHS PO Last administered on 01/12/18at 20:46; Start 12/28/17 at 21:00; Stop 01/13/18 at 12:04; Status DC Albuterol Sulfate (Ventolin) 2.5 mg PRN QID PRN NEB SHORTNESS OF BREATH; Start 01/01/18 at 04:45; Stop 01/13/18 at 12:04; Status DC Clozapine (Clozaril) 50 mg QHS PO Last administered on 01/12/18at 20:46; Start at 21:00; Stop 01/13/18 at 12:04; Status DC Haloperidol (Haldol) 15 mg HS PO Last administered on 01/06/18at 20:05; Start at 21:00; Stop 01/06/18 at 21:01; Status DC Haloperidol (Haldol) 10 mg DAILY PO Last administered on 01/08/18at 09:34; Start 01/05/18 at 09:00; Stop 01/08/18 at 09:51; Status DC Haloperidol (Haldol) 10 mg HS PO Last administered on 01/07/18at 20:18; Start at 21:00; Stop 01/08/18 at 09:51; Status DC Insulin Glargine (Lantus) 20 units DAILYWBKFT SQ Last administered on 01/13/18at 08:38; Start 01/07/18 at 08:00; Stop 01/13/18 at 12:04; Status DC Trazodone HCl (Desyrel) 50 mg PRN QHS PRN PO INSOMNIA, MAY REPEAT X1; Start 01/08/18 at 19:30; Stop 01/13/18 at 12:04; Status DC Active Scripts Active Reported Trazodone Hcl 50 Mg Tablet 50 Mg PO PRN QHS PRN Artificial Tears (Polyvinyl Alcohol) 15 Ml Drops 1 Drop OU PRN Q15MIN PRN Analgesic [place] (Methyl Salicylate/Menthol) 28 Gm Oint...g. 1 Yong TP PRN QID PRN Milk Of Magnesia (Magnesium Hydroxide) 2,400 Mg/10 Ml Oral.susp 2,400 Mg PO PRN QHS PRN Antacid Liquid (Mag Hydrox/Al Hydrox/Simeth) 355 Ml Oral.susp 15 Ml PO PRN AFTMEALHC PRN Duoneb 0.5-3(2.5) Mg/3 Ml (Albuterol/Ipratropium) 3 Ml Ampul.neb 3 Ml NEB RTQID Clozaril (Clozapine) 25 Mg Tablet 150 Mg PO QHS Monitor CBC and ANC weekly on Mondays. Miralax (Polyethylene Glycol 3350) 17 Gm Powd.pack 1 Packet PO DAILY Zyprexa Zydis (Olanzapine) 5 Mg Tab.rapdis 5 Mg PO PRN Q2HR PRN Depakote Er (Divalproex Sodium) 500 Mg Tab.er.24h 1,500 Tab PO QHS Culturelle (Lactobacillus Rhamnosus Gg) 1 Each Cap.sprink 1 Each PO BID Multi Vitamin Daily (Multivitamin) 1 Each Tablet 1 Tab PO DAILY Simethicone 125 Mg Capsule 120 Mg PO TID Senna Lax (Sennosides) 8.6 Mg Tablet 8.6 Mg PO BID Potassium Chloride 10 Meq Tablet.er 10 Meq PO DAILYWBKFT Actos (Pioglitazone Hcl) 30 Mg Tablet 30 Mg PO DAILY Pepcid (Famotidine) 20 Mg Tablet 20 Mg PO BID Novolog Flexpen (Insulin Aspart) 100 Unit/1 Ml Insuln.pen 8 Units SQ DAILYBFRLUN Novolog Flexpen (Insulin Aspart) 100 Unit/1 Ml Insuln.pen 4 Units SQ DAILYWBKFT Novolog Flexpen (Insulin Aspart) 100 Unit/1 Ml Insuln.pen 10 Unit SQ DAILYBFRSUP Mapap (Acetaminophen) 500 Mg Tablet 500 Mg PO PRN Q6HRS PRN Magnesium Oxide 400 Mg Tablet 400 Mg PO DAILY Lisinopril 20 Mg Tablet 20 Mg PO DAILY Levemir Flextouch (Insulin Detemir) 100 Unit/1 Ml Insuln.pen 20 Units SQ DAILYWBKFT Levemir Flextouch (Insulin Detemir) 100 Unit/1 Ml Insuln.pen 16 Units SQ HS Lasix (Furosemide) 40 Mg Tablet 40 Mg PO DAILY Gemfibrozil 600 Mg Tablet 600 Mg PO BID Gabapentin 300 Mg Capsule 300 Mg PO TID Flonase Allergy Relief (Fluticasone Propionate) 9.9 Ml [place].susp 2 Sprays NS PRN PRN Docusate Sodium 100 Mg Capsule 100 Mg PO DAILY Clonidine Hcl 0.1 Mg Tablet 0.1 Mg PO HS Cetirizine Hcl 10 Mg Tablet 10 Mg PO DAILY Amlodipine Besylate 10 Mg Tablet 10 Mg PO DAILY I have reviewed the current psychotropics carefully including drug interactions. Risk benefit ratio favors no change other than as noted in my dictated progress note. Diagnosis: Problems: (1) Schizophrenia, disorganized, subchronic with acute exacerbation (2) Schizoaffective disorder, chronic condition with acute exacerbation (3) Bipolar affective, mixed, sev w/ psych (4) Anxiety disorder JASS HUNG MD Jan 13, 2018 18:25
--- NOTE | 2018-01-15 09:58 | DS ---
DATE OF DISCHARGE: 01/13/2018 DISCHARGE SUMMARY/PSYCHIATRIC PROGRESS NOTE This is a late entry, date of service 01/13/2018, covers elements not covered in my initial note 01/13/2018. REASON FOR ADMISSION: Please refer to the admission history for details. Briefly, the patient is an -Serbian female, who was referred to us from the alf by primary care physician psychiatrist on account of acute exacerbation of her schizoaffective disorder, bipolar type. She was on rather high dosages of Haldol 20 mg twice a day, Abilify 30 mg a day, amongst other psychotropics despite which she was floridly psychotic, delusional with a suicide plan to jump down the stairwells. She thought people are talking about her, attempted to kick the door down to get out of the building. The patient stabilized on the inpatient psychiatry service and then became medically compromised and was transferred to the ICU and returned for this current hospital stay after she was medically stabilized in the ICU. SIGNIFICANT FINDINGS AND CLINICAL COURSE: Following admission, the patient was seen daily individually by myself, followed medically per Dr. Bishop/Dr. Bolton. The patient remained quite psychotic. She was also sedated. Her Haldol was gradually tapered and discontinued and the Abilify had been stopped previously. Depakote was adjusted to reach a therapeutic level. She would sometimes pick and choose her medications, but gradually mood appeared to stabilize, sedation appeared to improve, at which time, she was in a combination of Clozaril 150 mg at bedtime, Depakote ER 1500 mg at bedtime and Luvox 50 mg at bedtime had been discontinued. This had been initially started for her marked obsessiveness repetitively being back at the nursing station with various somatic complaints consequent to her anxiety and obsessiveness, but given her schizoaffective disorder, bipolar type diagnosis towards the end it was felt to discontinue it as she was more stable on the mood stabilizer, Depakote along with the antipsychotic Clozaril. She is also on Catapres 0.1 mg at bedtime for her hypertension, Zyprexa p.r.n., trazodone 50 mg at bedtime p.r.n., may repeat x 1 prior to discharge on 01/13/2018. REVIEW OF SYSTEMS: No CV, , pulmonary, eye, ENT system symptoms on review, complained of some sedation. MENTAL STATUS EXAM: Oriented to herself, situation and place and year. Speech coherent. Thought processes goal directed. No active suicidal or homicidal ideation. She was pleasant, smiling as I met with her. CONDITION AT DISCHARGE: Improved. FINAL DIAGNOSES: Schizoaffective disorder, bipolar type, mixed with psychotic features, in partial remission; anxiety disorder, unspecified; impulse control disorder, unspecified; history of obsessive compulsive disorder. Rest unchanged from initial note. DISCHARGE MEDICATIONS: Please refer to the . DISCHARGE INSTRUCTIONS: Outpatient psychiatric and medical followup at the alf and CBC, absolute neutrophil count should be checked weekly, chemistry profiles every month while she is on Clozaril together with valproic acid level and ammonia level. Time for discharge day management greater than 30 minutes. JASS HUNG MD DR: KATIANA/alicia JOB#: [id number] / [id number]
== END 2018-01-13 11:45 | disposition home or self-care (01) | DRG 885 ==
LOC: GEROPSY 23:09
PROVIDERS: ADMIT Psychiatry & Neurology Psychiatry; ATTEND Psychiatry & Neurology Psychiatry
DX: F25.0 Schizoaffective disorder, bipolar type (principal); E11.22 Type 2 diabetes mellitus with diabetic chronic kidney disease; K31.84 Gastroparesis; E11.43 Type 2 diabetes mellitus with diabetic autonomic (poly)neuropathy; N18.3 Chronic kidney disease, stage 3 (moderate); E78.5 Hyperlipidemia, unspecified; F41.9 Anxiety disorder, unspecified; F42.9 Obsessive-compulsive disorder, unspecified; F63.9 Impulse disorder, unspecified; F60.3 Borderline personality disorder; M85.80 Other specified disorders of bone density and structure, unspecified site; F09 Unspecified mental disorder due to known physiological condition; Z91.19 Patient's noncompliance with other medical treatment and regimen; E04.9 Nontoxic goiter, unspecified; L65.9 Nonscarring hair loss, unspecified; Z87.01 Personal history of pneumonia (recurrent); K59.09 Other constipation; Z88.0 Allergy status to penicillin; Z88.8 Allergy status to other drugs, medicaments and biological substances; Z98.51 Tubal ligation status; Z79.4 Long term (current) use of insulin; Z79.899 Other long term (current) drug therapy
CPT/HCPCS: 36415; 70450; 71045; 80053; 80061; 80164; 81001; 82140; 82306; 82550; 82607; 82803; 82947; 83036; 83540; 83550; 83605; 83735; 84146; 84436; 84443; 84480; 85025; 85610; 86021; 86593; 87086; 94640; 94799; J1815; J7620